=== PATIENT | male | born 1975 | race Caucasian/White ===

== ENCOUNTER 2016-06-21 22:57 | Emergency (ER) | payer MEDICAID, SELFPAY ==
[2016-06-21] MEDS ORDERED: CLINDAMYCIN 150 MG CAP As Ordered ONE (23:29)
[2016-06-21] MEDS ORDERED: IBUPROFEN 800 MG TAB As Ordered ONE (23:29)
[2016-06-21] MEDS ORDERED: traMADol 50 MG TAB As Ordered ONE (23:29)
--- NOTE | 2016-06-21 23:38 | EDDOCDS ---
Physician Documentation [facility] Name: Yfn Huntley Age: 41 yrs Sex: Male : 1975 Arrival Date: 06/21/2016 Time: 22:57 Bed 12 Private MD: No Pcp Disposition: 06/21/16 23:26 Discharged to Home/Self Care. Impression: Dental caries. - Condition is Stable. - Discharge Instructions: Dental Pain. - Prescriptions for Clindamycin HCl 300 mg Oral Capsule - take 1 capsule by ORAL route every 6 hours; 40 capsule. etodolac 200 mg Oral Capsule - take 1 capsule by ORAL route 3 times per day; 30 capsule. - Medication Reconciliation, Local Pharmacy Hours form. - Follow up: Your, Dentist; When: Call to arrange an appointment; Reason: Further diagnostic work-up, Recheck today's complaints, Continuance of care. - Problem is an acute exacerbation. - Symptoms are unchanged. Historical: - Allergies: No known drug Allergies; - Home Meds: 1. none - PMHx: none; - PSHx: none; - Social history: Smoking status: Patient uses tobacco products, heavy tobacco smoker. No barriers to communication noted, The patient speaks fluent [place] Citizen, Speaks appropriately for age. - Family history: Not pertinent. - : The pt / caregiver states he / she is not on anticoagulants. Home medication list is obtained from the patient. - Exposure Risk Screening:: None identified. Vital Signs: 06/21 22:58 BP 128 / 89; Pulse 77; Resp 18 S; Temp 97.9(O); Pulse Ox 99% on R/A; Weight 68.04 kg / gr2 150 lbs (R); Height 5 ft. 9 in. (175.26 cm) (R); Pain 7/10; 22:58 Body Mass Index 22.15 (68.04 kg, 175.26 cm) gr2 MDM: 23:25 Clindamycin 300 mg PO once ordered. btw 23:25 traMADol 50mg- 4 pack 1 packets PO Per package directions; Dispense with patient. Take btw per package instructions. ordered. 23:25 Ibuprofen 800 mg PO once ordered. btw Administered Medications: 23:35 Drug: Clindamycin 300 mg [clindamycin 150 mg capsule (2 caps)] Route: PO; tm5 23:36 Follow up: Response: Pt left department before re-evaluation is appropriate tm5 23:35 Drug: traMADol 50mg- 4 pack 1 packets [tramadol 50 mg tablet (1 tabs)] {Co-Signature: tm5 sls1 (Aparna Raza RN).} Route: PO; 23:35 Follow up: Response: Med's dispensed home tm5 23:35 Drug: Ibuprofen 800 mg [ibuprofen 800 mg tablet (1 tabs)] Route: PO; tm5 23:35 Follow up: Response: Pt left department before re-evaluation is appropriate tm5 Signatures: Fran Kramer PA PA btw Becker, Joshua, RN RN jmEstelle Denise RN RN tm5 Aparna Raza RN sls1 MTDD
--- NOTE | 2016-06-21 23:38 | EDDOCDS ---
Nurse's Notes [facility] Name: Yfn Huntley Age: 41 yrs Sex: Male : 1975 Arrival Date: 06/21/2016 Time: 22:57 Bed 12 Private MD: No Pcp Diagnosis: Dental caries Presentation: 06/21 23:13 Presenting complaint: Patient states: Patient reports that he has an abscessed tooth jmb that came to a head yesterday. Patient reports that his filling fell out 6 months ago. Patient denies calling dentist and reports getting his Medicaid reinstated today. Adult Sepsis Screening: The patient does not have new or worsening altered mentation. Patient's respiratory rate is less than 22. Systolic blood pressure is greater than 100. Patient has a qSOFA score of 0- Negative Sepsis Screen. Suicide/Homicide risk assessment- the patient denies having any suicidal and/or homicidal ideations and does not present with any other emotional, behavioral or mental health complaints. Status: Patient is not a director volunteer services or dependent. Transition of care: patient was not received from another setting of care. 23:13 Acuity: AMALIA Level 4 b 23:13 Method Of Arrival: Walkin/Carried/Asstd jmb Triage Assessment: 23:14 General: Appears in no apparent distress, Behavior is appropriate for age, cooperative. jmb Pain: Location: mouth Pain currently is 8 out of 10 on a pain scale. HIV screening NA for this visit Offered previously. Neurological: Level of Consciousness is awake, alert, obeys commands, Oriented to person, place, time, Speech is normal, Facial symmetry appears normal, Facial symmetry: tongue is midline. EENT: Reports pain in mouth Pain is 8 out of 10 on a pain scale. Respiratory: Airway is patent Respiratory effort is even, unlabored, Respiratory pattern is regular, symmetrical. GI: Abdomen is non- distended. Derm: Skin is pink, warm & dry. Musculoskeletal: Range of motion intact in all extremities. Historical: - Allergies: No known drug Allergies; - Home Meds: 1. none - PMHx: none; - PSHx: none; - Social history: Smoking status: Patient uses tobacco products, heavy tobacco smoker. No barriers to communication noted, The patient speaks fluent [place] Sor[place], Speaks appropriately for age. - Family history: Not pertinent. - : The pt / caregiver states he / she is not on anticoagulants. Home medication list is obtained from the patient. - Exposure Risk Screening:: None identified. Screenin:22 Screening information is obtained from the patient. Fall risk: No risks identified. tm5 Assistance ADL's: requires no assistance with activities of daily living. Abuse/DV Screen: The patient / caregiver reports he/she is: not in a situation that causes fear, pain or injury. Nutritional screening: No deficits noted. Advance Directives: There is no active DNR order. home support is adequate. Assessment: 23:22 General: Appears in no apparent distress, Behavior is appropriate for age, cooperative. tm5 Pain: Location: mouth Pain currently is 8 out of 10 on a pain scale. Quality of pain is described as sharp. Neurological: Level of Consciousness is awake, alert, Oriented to person, place, time. Respiratory: Airway is patent Respiratory effort is even, unlabored, Respiratory pattern is regular, symmetrical, Breath sounds are clear bilaterally. Derm: Skin is pink, warm & dry. Vital Signs: 22:58 BP 128 / 89; Pulse 77; Resp 18 S; Temp 97.9(O); Pulse Ox 99% on R/A; Weight 68.04 kg gr2 (R); Height 5 ft. 9 in. (175.26 cm) (R); Pain 7/10; 22:58 Body Mass Index 22.15 (68.04 kg, 175.26 cm) gr2 Vitals: 22:58 Log In Time: June 21, 2016 at 22:58. gr2 ED Course: 22:58 Patient visited by Janis Taylor. gr2 22:58 No Pcp is Private Physician. gr2 22:58 Patient moved to Waiting gr2 22:59 Patient visited by Janis Taylor. gr2 22:59 Patient moved to Pre RCE gr2 23:14 Triage Initiated jmb 23:15 Patient moved to 13 jmb 23:16 Patient moved to 12 jmb 23:20 Fran Kramer PA is PHCP. btw 23:20 Constantine Nolan DO is Attending Physician. btw 23:20 Patient visited by Fran Kramer PA. btw 23:22 Patient visited by Estelle Owens RN. tm5 23:22 Physician Asssistant in to see patient. tm5 23:22 The patient / caregiver is instructed regarding the plan of care and ED course. tm5 23:26 Your, Dentist is Referral Physician. btw 23:36 No IV's were initiated during this patient's visit. No procedures done that require tm5 assistance. Administered Medications: 23:35 Drug: Clindamycin 300 mg [clindamycin 150 mg capsule (2 caps)] Route: PO; tm5 23:36 Follow up: Response: Pt left department before re-evaluation is appropriate tm5 23:35 Drug: traMADol 50mg- 4 pack 1 packets [tramadol 50 mg tablet (1 tabs)] {Co-Signature: tm5 sls1 (Aparna Raza RN).} Route: PO; 23:35 Follow up: Response: Med's dispensed home tm5 23:35 Drug: Ibuprofen 800 mg [ibuprofen 800 mg tablet (1 tabs)] Route: PO; tm5 23:35 Follow up: Response: Pt left department before re-evaluation is appropriate tm5 Order Results: There are currently no results for this order. Outcome: 23:22 No special radiology studies were completed. tm5 23:26 Discharge ordered by Provider. btw 23:36 Discharge Assessment: Patient awake, alert and oriented x 3. No cognitive and/or tm5 functional deficits noted. Patient verbalized understanding of disposition instructions. patient administered narcotics - no. The following High Risk Discharge criteria are identified: None. Discharged to home ambulatory. Condition: good Condition: stable. Discharge instructions given to patient, Instructed on discharge instructions, follow up and referral plans. medication usage, no driving heavy equipment, Demonstrated understanding of instructions, medications, Pt was receptive of discharge instructions/ teaching. Prescriptions given X 2. Property :Personal belongings accompany Pt. 23:37 Patient left the ED. tm5 Signatures: Fran Kramer PA PA btw Janis Taylor gr2 Roscoe DowdRN RN Estelle YanRN RN tm5 Aparna Raza RN sls1 MTDD
--- NOTE | 2016-06-24 00:38 | EDDOCDS ---
Physician Documentation [facility] Name: Yfn Huntley Age: 41 yrs Sex: Male : 1975 Arrival Date: 06/21/2016 Time: 22:57 Bed 12 Private MD: No Pcp Disposition: 06/21/16 23:26 Discharged to Home/Self Care. Impression: Dental caries. - Condition is Stable. - Discharge Instructions: Dental Pain. - Prescriptions for Clindamycin HCl 300 mg Oral Capsule - take 1 capsule by ORAL route every 6 hours; 40 capsule. etodolac 200 mg Oral Capsule - take 1 capsule by ORAL route 3 times per day; 30 capsule. - Medication Reconciliation, Local Pharmacy Hours form. - Follow up: Your, Dentist; When: Call to arrange an appointment; Reason: Further diagnostic work-up, Recheck today's complaints, Continuance of care. - Problem is an acute exacerbation. - Symptoms are unchanged. Historical: - Allergies: No known drug Allergies; - Home Meds: 1. none - PMHx: none; - PSHx: none; - Social history: Smoking status: Patient uses tobacco products, heavy tobacco smoker. No barriers to communication noted, The patient speaks fluent [place], Speaks appropriately for age. - Family history: Not pertinent. - : The pt / caregiver states he / she is not on anticoagulants. Home medication list is obtained from the patient. - Exposure Risk Screening:: None identified. Vital Signs: 06/21 22:58 BP 128 / 89; Pulse 77; Resp 18 S; Temp 97.9(O); Pulse Ox 99% on R/A; Weight 68.04 kg / gr2 150 lbs (R); Height 5 ft. 9 in. (175.26 cm) (R); Pain 7/10; 22:58 Body Mass Index 22.15 (68.04 kg, 175.26 cm) gr2 MDM: 23:25 Clindamycin 300 mg PO once ordered. btw 23:25 traMADol 50mg- 4 pack 1 packets PO Per package directions; Dispense with patient. Take btw per package instructions. ordered. 23:25 Ibuprofen 800 mg PO once ordered. btw 06/22 13:45 T-Sheet-- Draft Copy was scanned into [employer] and attached to record. gb Administered Medications: 06/21 23:35 Drug: Clindamycin 300 mg [clindamycin 150 mg capsule (2 caps)] Route: PO; tm5 23:36 Follow up: Response: Pt left department before re-evaluation is appropriate tm5 23:35 Drug: traMADol 50mg- 4 pack 1 packets [tramadol 50 mg tablet (1 tabs)] {Co-Signature: tm5 sls1 (Aparna Raza RN).} Route: PO; 23:35 Follow up: Response: Med's dispensed home tm5 23:35 Drug: Ibuprofen 800 mg [ibuprofen 800 mg tablet (1 tabs)] Route: PO; tm5 23:35 Follow up: Response: Pt left department before re-evaluation is appropriate tm5 Signatures: Catherine Sullivan, Rickie Reg gb Fran Kramer PA PA btw Becker, Joshua,RN RN Estelle Yan RN RN tm5 Aparna Raza RN sls1 The chart was reviewed and I authenticate all verbal orders and agree with the evaluation and treatment provided.Attachments: 06/22 13:45 T-Sheet-- Draft Copy Chart Complete MTDD
--- NOTE | 2016-06-24 00:38 | EDDOCDS ---
Physician Documentation [facility] Name: Yfn Huntley Age: 41 yrs Sex: Male : 1975 Arrival Date: 06/21/2016 Time: 22:57 Bed 12 Private MD: No Pcp Disposition: 06/21/16 23:26 Discharged to Home/Self Care. Impression: Dental caries. - Condition is Stable. - Discharge Instructions: Dental Pain. - Prescriptions for Clindamycin HCl 300 mg Oral Capsule - take 1 capsule by ORAL route every 6 hours; 40 capsule. etodolac 200 mg Oral Capsule - take 1 capsule by ORAL route 3 times per day; 30 capsule. - Medication Reconciliation, Local Pharmacy Hours form. - Follow up: Your, Dentist; When: Call to arrange an appointment; Reason: Further diagnostic work-up, Recheck today's complaints, Continuance of care. - Problem is an acute exacerbation. - Symptoms are unchanged. Historical: - Allergies: No known drug Allergies; - Home Meds: 1. none - PMHx: none; - PSHx: none; - Social history: Smoking status: Patient uses tobacco products, heavy tobacco smoker. No barriers to communication noted, The patient speaks fluent [place], Speaks appropriately for age. - Family history: Not pertinent. - : The pt / caregiver states he / she is not on anticoagulants. Home medication list is obtained from the patient. - Exposure Risk Screening:: None identified. Vital Signs: 06/21 22:58 BP 128 / 89; Pulse 77; Resp 18 S; Temp 97.9(O); Pulse Ox 99% on R/A; Weight 68.04 kg / gr2 150 lbs (R); Height 5 ft. 9 in. (175.26 cm) (R); Pain 7/10; 22:58 Body Mass Index 22.15 (68.04 kg, 175.26 cm) gr2 MDM: 23:25 Clindamycin 300 mg PO once ordered. btw 23:25 traMADol 50mg- 4 pack 1 packets PO Per package directions; Dispense with patient. Take btw per package instructions. ordered. 23:25 Ibuprofen 800 mg PO once ordered. btw 06/22 13:45 T-Sheet-- Draft Copy was scanned into [employer] and attached to record. gb Administered Medications: 06/21 23:35 Drug: Clindamycin 300 mg [clindamycin 150 mg capsule (2 caps)] Route: PO; tm5 23:36 Follow up: Response: Pt left department before re-evaluation is appropriate tm5 23:35 Drug: traMADol 50mg- 4 pack 1 packets [tramadol 50 mg tablet (1 tabs)] {Co-Signature: tm5 sls1 (Aparna Raza RN).} Route: PO; 23:35 Follow up: Response: Med's dispensed home tm5 23:35 Drug: Ibuprofen 800 mg [ibuprofen 800 mg tablet (1 tabs)] Route: PO; tm5 23:35 Follow up: Response: Pt left department before re-evaluation is appropriate tm5 Signatures: Catherine Sullivan, Rickie Reg gb Fran Kramer PA PA btw Becker, Joshua,RN RN Estelle Yan RN RN tm5 Aparna Raza RN sls1 The chart was reviewed and I authenticate all verbal orders and agree with the evaluation and treatment provided.Attachments: 06/22 13:45 T-Sheet-- Draft Copy Chart Complete MTDD
--- NOTE | 2016-06-24 00:38 | EDDOCDS ---
Nurse's Notes [facility] Name: Yfn Huntley Age: 41 yrs Sex: Male : 1975 Arrival Date: 06/21/2016 Time: 22:57 Bed 12 Private MD: No Pcp Diagnosis: Dental caries Presentation: 06/21 23:13 Presenting complaint: Patient states: Patient reports that he has an abscessed tooth jmb that came to a head yesterday. Patient reports that his filling fell out 6 months ago. Patient denies calling dentist and reports getting his Medicaid reinstated today. Adult Sepsis Screening: The patient does not have new or worsening altered mentation. Patient's respiratory rate is less than 22. Systolic blood pressure is greater than 100. Patient has a qSOFA score of 0- Negative Sepsis Screen. Suicide/Homicide risk assessment- the patient denies having any suicidal and/or homicidal ideations and does not present with any other emotional, behavioral or mental health complaints. Status: Patient is not a electrical service technician or dependent. Transition of care: patient was not received from another setting of care. 23:13 Acuity: AMALIA Level 4 b 23:13 Method Of Arrival: Walkin/Carried/Asstd jmb Triage Assessment: 23:14 General: Appears in no apparent distress, Behavior is appropriate for age, cooperative. jmb Pain: Location: mouth Pain currently is 8 out of 10 on a pain scale. HIV screening NA for this visit Offered previously. Neurological: Level of Consciousness is awake, alert, obeys commands, Oriented to person, place, time, Speech is normal, Facial symmetry appears normal, Facial symmetry: tongue is midline. EENT: Reports pain in mouth Pain is 8 out of 10 on a pain scale. Respiratory: Airway is patent Respiratory effort is even, unlabored, Respiratory pattern is regular, symmetrical. GI: Abdomen is non- distended. Derm: Skin is pink, warm & dry. Musculoskeletal: Range of motion intact in all extremities. Historical: - Allergies: No known drug Allergies; - Home Meds: 1. none - PMHx: none; - PSHx: none; - Social history: Smoking status: Patient uses tobacco products, heavy tobacco smoker. No barriers to communication noted, The patient speaks fluent [place], Speaks appropriately for age. - Family history: Not pertinent. - : The pt / caregiver states he / she is not on anticoagulants. Home medication list is obtained from the patient. - Exposure Risk Screening:: None identified. Screenin:22 Screening information is obtained from the patient. Fall risk: No risks identified. tm5 Assistance ADL's: requires no assistance with activities of daily living. Abuse/DV Screen: The patient / caregiver reports he/she is: not in a situation that causes fear, pain or injury. Nutritional screening: No deficits noted. Advance Directives: There is no active DNR order. home support is adequate. Assessment: 23:22 General: Appears in no apparent distress, Behavior is appropriate for age, cooperative. tm5 Pain: Location: mouth Pain currently is 8 out of 10 on a pain scale. Quality of pain is described as sharp. Neurological: Level of Consciousness is awake, alert, Oriented to person, place, time. Respiratory: Airway is patent Respiratory effort is even, unlabored, Respiratory pattern is regular, symmetrical, Breath sounds are clear bilaterally. Derm: Skin is pink, warm & dry. Vital Signs: 22:58 BP 128 / 89; Pulse 77; Resp 18 S; Temp 97.9(O); Pulse Ox 99% on R/A; Weight 68.04 kg gr2 (R); Height 5 ft. 9 in. (175.26 cm) (R); Pain 7/10; 22:58 Body Mass Index 22.15 (68.04 kg, 175.26 cm) gr2 Vitals: 22:58 Log In Time: June 21, 2016 at 22:58. gr2 ED Course: 22:58 Patient visited by Janis Taylor. gr2 22:58 No Pcp is Private Physician. gr2 22:58 Patient moved to Waiting gr2 22:59 Patient visited by Janis Taylor. gr2 22:59 Patient moved to Pre RCE gr2 23:14 Triage Initiated jmb 23:15 Patient moved to 13 jmb 23:16 Patient moved to 12 jmb 23:20 Fran Kramer PA is PHCP. btw 23:20 Constantine Nolan DO is Attending Physician. btw 23:20 Patient visited by Fran Kramer PA. btw 23:22 Patient visited by Estelle Owens RN. tm5 23:22 Physician Asssistant in to see patient. tm5 23:22 The patient / caregiver is instructed regarding the plan of care and ED course. tm5 23:26 Your, Dentist is Referral Physician. btw 23:36 No IV's were initiated during this patient's visit. No procedures done that require tm5 assistance. 06/22 13:45 T-Sheet-- Draft Copy was scanned into [employer] and attached to record. gb Administered Medications: 06/21 23:35 Drug: Clindamycin 300 mg [clindamycin 150 mg capsule (2 caps)] Route: PO; tm5 23:36 Follow up: Response: Pt left department before re-evaluation is appropriate tm5 23:35 Drug: traMADol 50mg- 4 pack 1 packets [tramadol 50 mg tablet (1 tabs)] {Co-Signature: tm5 sls1 (Aparna Raza RN).} Route: PO; 23:35 Follow up: Response: Med's dispensed home tm5 23:35 Drug: Ibuprofen 800 mg [ibuprofen 800 mg tablet (1 tabs)] Route: PO; tm5 23:35 Follow up: Response: Pt left department before re-evaluation is appropriate tm5 Order Results: There are currently no results for this order. Outcome: 23:22 No special radiology studies were completed. tm5 23:26 Discharge ordered by Provider. btw 23:36 Discharge Assessment: Patient awake, alert and oriented x 3. No cognitive and/or tm5 functional deficits noted. Patient verbalized understanding of disposition instructions. patient administered narcotics - no. The following High Risk Discharge criteria are identified: None. Discharged to home ambulatory. Condition: good Condition: stable. Discharge instructions given to patient, Instructed on discharge instructions, follow up and referral plans. medication usage, no driving heavy equipment, Demonstrated understanding of instructions, medications, Pt was receptive of discharge instructions/ teaching. Prescriptions given X 2. Property :Personal belongings accompany Pt. 23:37 Patient left the ED. tm5 Signatures: Catherine Sullivan, Reg Reg Fran Hardy PA PA btw Janis Taylor gr2 Roscoe Dowd,RN RN Estelle Yan RN RN tm5 Aparna Raza RN sls1 Chart Complete MTDD
== END 2016-06-21 23:37 | disposition home or self-care (01) ==
LOC: M ED 22:57
DX: K02.9 Dental caries, unspecified (principal); Z72.0 Tobacco use

== ENCOUNTER 2016-06-24 16:57 | Emergency (ER) | payer SELFPAY | END 2016-06-24 18:05 | disposition left against medical advice (07) | LOC: M ED 16:57 | DX: K08.89 Other specified disorders of teeth and supporting structures (principal); Z53.29 Procedure and treatment not carried out because of patient's decision for other reasons ==

== ENCOUNTER 2017-10-04 01:22 | Emergency (ER) | payer OTHER, SELFPAY ==
[2017-10-04 02:40] LABS: BASO # 0.1 10^3/uL (0.0-0.2); BASO % 0.5 % (0.0-1.0); EOS % 0.4 % (0.0-3.0); HEMOGLOBIN 14.3 g/dl (13.5-17.5); IMMATURE GRANULOCYTE % 0.4 % (0-3.0); LYMPH # 1.8 10^3/uL (1.5-4.5); LYMPH % 16.7 % (24.0-44.0); MEAN CORPUSCULAR HEMOGLOBIN 33.1 pg (27.0-33.0); MEAN CORPUSCULAR HGB CONC 34.9 g/dl (32.0-36.5); MEAN CORPUSCULAR VOLUME 94.9 fl (80.0-96.0); MONO % 9.1 % (0.0-5.0); NEUTROPHILS % 72.9 % (36.0-66.0); PLATELET COUNT, AUTOMATED 349 10^3/uL (150-450); RED BLOOD COUNT 4.32 10^6/uL (4.30-6.10)
[2017-10-04 02:48] LABS: ANION GAP 5 MEQ/L (8-16); BLOOD UREA NITROGEN 8 MG/DL (7-18); CALCIUM LEVEL 8.3 MG/DL (8.5-10.1); CARBON DIOXIDE LEVEL 28 MEQ/L (21-32); CHLORIDE LEVEL 111 MEQ/L (98-107); CK-MB VALUE MASS 2.1 NG/ML (<3.6); CPK CREATINE PHOSPHOKINASE 239 U/L (39-308); CREATININE FOR GFR 0.94 MG/DL (0.70-1.30); GLOMERULAR FILTRATION RATE > 60.0 (>60); GLUCOSE, FASTING 93 MG/DL (70-100); MB/CK RELATIVE INDEX 0.87 (< OR =4); POTASSIUM SERUM 3.9 MEQ/L (3.5-5.1); SODIUM LEVEL 144 MEQ/L (136-145); TROPONIN I < 0.02 NG/ML (< 0.10)
[2017-10-04 02:54] LABS: PARTIAL THROMBOPLASTIN TIME 26.2 SECONDS (26.8-37.9); PROTHROMBIN TIME 13.3 SECONDS (12.4-14.5)
== END 2017-10-04 04:17 | disposition home or self-care (01) ==
LOC: M ED 04:17
DX: R07.89 Other chest pain (principal); F17.200 Nicotine dependence, unspecified, uncomplicated
CPT/HCPCS: 71045

== ENCOUNTER 2018-04-13 08:25 | Emergency (ER) | payer MEDICAID, OTHER ==
[2018-04-13] MEDS: ONDANSETRON 4MG/2ML VIAL (J2405) IV (08:53)
[2018-04-13] MEDS: MORPHINE 4 MG/ML 1ML VIAL/SYRINGE (J2270) IV (08:53)
[2018-04-13] MEDS: NS 1,000 ML IV (08:54)
[2018-04-13 08:56] LABS: BASO # 0.1 10^3/uL (0.0-0.2); BASO % 0.8 % (0.0-1.0); EOS # 0.3 10^3/uL (0.0-0.50); EOS % 3.5 % (0.0-3.0); HEMATOCRIT 44.1 % (42.0-52.0); HEMOGLOBIN 14.6 g/dl (13.5-17.5); IMMATURE GRANULOCYTE % 0.3 % (0-3.0); MEAN CORPUSCULAR HEMOGLOBIN 31.9 pg (27.0-33.0); MEAN CORPUSCULAR HGB CONC 33.1 g/dl (32.0-36.5); MEAN CORPUSCULAR VOLUME 96.5 fl (80.0-96.0); MONO # 0.8 10^3/uL (0.0-0.8); MONO % 10.4 % (0.0-5.0); NEUTROPHILS # 4.3 10^3/uL (1.8-7.7); PLATELET COUNT, AUTOMATED 370 10^3/uL (150-450); RED BLOOD COUNT 4.57 10^6/uL (4.30-6.10); RED CELL DISTRIBUTION WIDTH 13.3 % (11.5-14.5); WHITE BLOOD COUNT 7.4 10^3/uL (4.0-10.0)
[2018-04-13 09:12] LABS: INR 0.87; PROTHROMBIN TIME 11.9 SECONDS (12.1-14.4)
[2018-04-13 09:13] LABS: PARTIAL THROMBOPLASTIN TIME 27.4 SECONDS (25.4-37.6)
[2018-04-13 09:20] LABS: ALBUMIN 3.7 GM/DL (3.2-5.2); ALBUMIN/GLOBULIN RATIO 1.37 (1.00-1.93); ALKALINE PHOSPHATASE 86 U/L (45-117); ALT/SGPT 17 U/L (12-78); AMYLASE 194 U/L (25-115); ANION GAP 6 MEQ/L (8-16); AST/SGOT 10 U/L (7-37); BILIRUBIN,DIRECT < 0.1 MG/DL (0.0-0.2); BILIRUBIN,TOTAL 0.3 MG/DL (0.2-1.0); BLOOD UREA NITROGEN 15 MG/DL (7-18); CALCIUM LEVEL 8.6 MG/DL (8.5-10.1); CARBON DIOXIDE LEVEL 30 MEQ/L (21-32); CHLORIDE LEVEL 106 MEQ/L (98-107); CREATININE FOR GFR 0.93 MG/DL (0.70-1.30); GLOMERULAR FILTRATION RATE > 60.0 (>60); GLUCOSE, FASTING 99 MG/DL (70-100); LIPASE 502 U/L (73-393); POTASSIUM SERUM 4.6 MEQ/L (3.5-5.1); SODIUM LEVEL 142 MEQ/L (136-145); TOTAL PROTEIN 6.4 GM/DL (6.4-8.2)
[2018-04-13 09:20] LABS: LACTIC ACID SEPSIS PROTOCOL 1.3 MMOL/L (0.4-2.0)
[2018-04-13] MEDS ORDERED: ISOVUE-370 76% 100ML VIAL (Q9967) As Ordered (09:33)
== END 2018-04-13 11:16 | disposition home or self-care (01) ==
LOC: M ED 08:25
DX: K56.7 Ileus, unspecified (principal)
CPT/HCPCS: J2270

== ENCOUNTER 2019-05-29 08:34 | Emergency (ER) | payer MEDICAID, OTHER ==
[~2019-05-29] VITALS: Ht 175.3 cm; Wt 59.6 kg
[~2019-05-29 08:34] MED LIST: ACET-716 PO
[2019-05-29] MEDS ORDERED: IBUP80TA (08:42)
[2019-05-29] MEDS ORDERED: BUPREN-NALOX (08:42)
[2019-05-29 09:11] LABS: BASO # 0.1 10^3/uL (0.0-0.2); BASO % 0.3 % (0.0-1.0); EOS # 0.1 10^3/uL (0.0-0.5); EOS % 0.4 % (0.0-3.0); HEMATOCRIT 32.2 % (42.0-52.0); HEMOGLOBIN 10.4 g/dl (13.5-17.5); LYMPH # 2.2 10^3/uL (1.5-5.0); LYMPH % 14.1 % (24.0-44.0); MEAN CORPUSCULAR HEMOGLOBIN 29.3 pg (27.0-33.0); MEAN CORPUSCULAR HGB CONC 32.3 g/dl (32.0-36.5); MEAN CORPUSCULAR VOLUME 90.7 fl (80.0-96.0); MONO % 14.8 % (0.0-5.0); NEUTROPHILS # 10.8 10^3/uL (1.5-8.5); NEUTROPHILS % 69.9 % (36.0-66.0); PLATELET COUNT, AUTOMATED 838 10^3/uL (150-450); RED BLOOD COUNT 3.55 10^6/uL (4.30-6.10); WHITE BLOOD COUNT 15.5 10^3/uL (4.0-10.0)
[2019-05-29 09:36] LABS: MONO # 2.3 10^3/uL (0.0-0.8)
[2019-05-29 09:41] LABS: ALBUMIN 2.5 GM/DL (3.2-5.2); ALT/SGPT 17 U/L (12-78); BILIRUBIN,DIRECT 0.1 MG/DL (0.0-0.2); BILIRUBIN,TOTAL 0.4 MG/DL (0.2-1.0); BLOOD UREA NITROGEN 10 MG/DL (7-18); CALCIUM LEVEL 8.3 MG/DL (8.5-10.1); CARBON DIOXIDE LEVEL 26 MEQ/L (21-32); CHLORIDE LEVEL 103 MEQ/L (98-107); CREATININE FOR GFR 0.66 MG/DL (0.70-1.30); GLOMERULAR FILTRATION RATE > 60.0 (>60); GLUCOSE, FASTING 103 MG/DL (70-100); LIPASE 35 U/L (73-393); POTASSIUM SERUM 3.9 MEQ/L (3.5-5.1); SODIUM LEVEL 138 MEQ/L (136-145); TOTAL PROTEIN 6.7 GM/DL (6.4-8.2)
--- NOTE | 2019-05-29 10:04 | REP ---
Acute abdominal series three views including PA chest and supine upright abdomen: PA chest: Comparison is 10/04/2017. The lung castaneda are clear. The cardiac size is normal. The steve, mediastinum, skeletal structures are unremarkable. There is no free subdiaphragmatic air. There is no interval change. Abdomen, supine upright views: Comparison is the abdomen/pelvis CT dated 04/13/2018. The bowel gas pattern is normal. There are no calcifications. The skeletal soft tissue structures otherwise are unremarkable. Impression: Normal bowel gas pattern. Electronically Signed by Dayton Alvarenga MD 05/29/2019 09:55 A
[2019-05-29 11:06] VITALS: BP 116/66
[2019-05-29] MEDS: GASTROGRAFIN SOLUTION 30ML PO SCH ×2 (11:22→11:23)
[2019-05-29] MEDS ORDERED: ISOVUE-370 76% 100ML VIAL (Q9967) As Ordered ONE (11:42)
== END 2019-05-29 11:55 | disposition left against medical advice (07) ==
LOC: M ED 08:34
DX: R10.9 Unspecified abdominal pain (principal); Z53.20 Procedure and treatment not carried out because of patient's decision for unspecified reasons; G89.29 Other chronic pain; M54.5 Low back pain; F17.210 Nicotine dependence, cigarettes, uncomplicated
CPT/HCPCS: 36415; 74021; 80048; 80076; 81001; 83690; 85025; 99284; Q9963

== ENCOUNTER 2019-05-31 06:42 | Emergency (ER) | payer OTHER ==
[~2019-05-31] VITALS: Ht 175.3 cm; Wt 59.6 kg
[~2019-05-31 06:42] MED LIST changes: +BUPREN-NALOX; +IBUP80TA
[2019-05-31] MEDS ORDERED: GASTROGRAFIN SOLUTION 30ML (Q9963) As Ordered ONE (07:13)
[2019-05-31] MEDS ORDERED: NS 1,000 ML IV ONE (07:15)
[2019-05-31] MEDS: GASTROGRAFIN SOLUTION 30ML PO SCH ×2 (07:22→07:57)
[2019-05-31 07:26] LABS: BASO % 0.1 % (0.0-1.0); EOS # 0.1 10^3/uL (0.0-0.5); EOS % 0.5 % (0.0-3.0); HEMATOCRIT 31.1 % (42.0-52.0); HEMOGLOBIN 9.8 g/dl (13.5-17.5); LYMPH # 1.6 10^3/uL (1.5-5.0); LYMPH % 11.3 % (24.0-44.0); MEAN CORPUSCULAR HGB CONC 31.5 g/dl (32.0-36.5); MONO % 14.9 % (0.0-5.0); NEUTROPHILS # 10.1 10^3/uL (1.5-8.5); NEUTROPHILS % 72.8 % (36.0-66.0); PLATELET COUNT, AUTOMATED 839 10^3/uL (150-450); RED BLOOD COUNT 3.38 10^6/uL (4.30-6.10); WHITE BLOOD COUNT 13.8 10^3/uL (4.0-10.0)
[2019-05-31 07:51] LABS: ALBUMIN 2.3 GM/DL (3.2-5.2); ALT/SGPT 14 U/L (12-78); BILIRUBIN,DIRECT 0.1 MG/DL (0.0-0.2); BILIRUBIN,TOTAL 0.3 MG/DL (0.2-1.0); BLOOD UREA NITROGEN 10 MG/DL (7-18); CALCIUM LEVEL 8.2 MG/DL (8.5-10.1); CARBON DIOXIDE LEVEL 28 MEQ/L (21-32); CHLORIDE LEVEL 105 MEQ/L (98-107); CREATININE FOR GFR 0.64 MG/DL (0.70-1.30); GLOMERULAR FILTRATION RATE > 60.0 (>60); GLUCOSE, FASTING 103 MG/DL (70-100); LIPASE 27 U/L (73-393); POTASSIUM SERUM 4.6 MEQ/L (3.5-5.1); SODIUM LEVEL 139 MEQ/L (136-145); TOTAL PROTEIN 5.5 GM/DL (6.4-8.2)
[2019-05-31 07:55] LABS: MONO # 2.1 10^3/uL (0.0-0.8)
[2019-05-31] MEDS ORDERED: ISOVUE-370 76% 100ML VIAL (Q9967) As Ordered ONE (09:25)
[2019-05-31] MEDS ORDERED: PIPERACILLIN/TAZOBACTAM SOD 3.375 GM in D5W MINI-BAG PLUS 50 ML IV ONE (10:30)
--- NOTE | 2019-05-31 10:35 | REP ---
CT ABDOMEN PELVIS WITH IV AND ORAL CONTRAST: 05/31/2019. CLINICAL HISTORY: Left abdominal pain, smoker, concern for malignancy. COMPARISON: Abdominal series 05/29/2019, CT 04/13/2018. TECHNIQUE: Oral Gastrografin 10 mL in 290 mL flavored water for two doses per our bowel contrast protocol. Bolus of 100 mL Isovue 370 and scanning through the abdomen pelvis with coronal and sagittal reconstructions. FINDINGS: CT ABDOMEN: Lung bases are clear. Heart is not enlarged. There is no pericardial thickening or effusion. No hiatal hernia. Liver not enlarged but the left hepatic lobe is mildly prominent. No splenomegaly, hepatic or splenic focal lesion, biliary dilatation or upper abdominal ascites. Gallbladder without calcified stone or mass. Pancreas without mass, ductal dilatation, inflammatory change or adjacent adenopathy/fluid. Stomach collapsed. Small bowel loops are not dilated and I do not see air fluid levels. The oral contrast is seen in the distal small bowel loops and colon to the level of the mid left colon at the iliac crest. There is moderate constipation with abundant stool in the right and transverse colon up to the mid left colon. There is an air-fluid level along the iliacus muscle adjacent to abutting and likely arising from the left colon also abuts the psoas muscle. It extends to the superior margin of the left iliac wing. It is of least 8.5 x 6.6 x 4.1 cm. There is some free air adjacent to this and further up in the left upper quadrant adjacent to the splenic flexure. Adrenal glands are normal. Kidneys show no stone, hydronephrosis, mass or cyst. No perinephric fluid. I see no ureteral dilatation or ureteral stone. The aorta has calcifications but no aneurysm. CT PELVIS: Some pelvic free fluid is noted. This is seen along the left peroneal gutter into the left deep pelvis. Bladder is only minimally filled. Small bowel loops contrast filled and unremarkable. Distal left colon and sigmoid collapsed and difficult to evaluate. No ventral or inguinal hernia nor inguinal adenopathy. Bone windows show degenerative disc changes at L5-S1 and L4-5 , with the other lumbar levels, visualized ribs and bony pelvis without acute finding. No gross inflammatory changes about the cecum. Appendix is seen and unremarkable, filled with some oral contrast. IMPRESSION: 1. There is evidence of iliopsoas abscess on the left with air fluid level and abutting the psoas and iliacus muscles. The abscess measures 8.5 x 6.6 x 4.1 cm with fluid tracking down the peroneal gutter into the left pelvis. Some free air along the left abdominal wall. I suspect origin from the left colon but evaluation of the left colon and sigmoid difficult due to the low body fat and absence of oral contrast beyond the mid left colon, which up to that point, was normal. 2. There is renal, ureteral or bladder stone. Bladder collapsed. 3. Solid organs in the upper abdomen grossly unremarkable. 4. I spoke to the requesting PA by phone at the conclusion of this dictation. Electronically Signed by Ranjit Deleon MD 05/31/2019 07:54 P
[2019-05-31 11:21] VITALS: BP 107/60
== END 2019-05-31 11:41 | disposition left against medical advice (07) ==
LOC: M ED 06:42
DX: K68.12 Psoas muscle abscess (principal); R19.09 Other intra-abdominal and pelvic swelling, mass and lump; Z53.20 Procedure and treatment not carried out because of patient's decision for unspecified reasons; F17.210 Nicotine dependence, cigarettes, uncomplicated
CPT/HCPCS: 74177; 80048; 80076; 83690; 85025; 87040; 96361; 96365; 99284; J2543; Q9967

== ENCOUNTER 2019-05-31 13:44 | Emergency (ER) | payer OTHER ==
[~2019-05-31] VITALS: Ht 175.3 cm; Wt 59.8 kg
[2019-05-31] MEDS ORDERED: NS 1,000 ML IV SCH (14:00)
[2019-05-31 14:27] LABS: INR 1.12; PROTHROMBIN TIME 14.1 SECONDS (11.8-14.0)
[2019-05-31 14:28] LABS: PARTIAL THROMBOPLASTIN TIME 31.6 SECONDS (25.0-38.4)
[2019-05-31] MEDS ORDERED: NICOTINE 14 MG/24 HR TRANSDERMAL TD ONE (15:45)
[2019-05-31 16:31] VITALS: BP 120/72
== END 2019-05-31 16:33 | disposition short-term general hospital (02) ==
LOC: M ED 13:44
DX: K68.12 Psoas muscle abscess (principal); R19.09 Other intra-abdominal and pelvic swelling, mass and lump; F17.210 Nicotine dependence, cigarettes, uncomplicated

== ENCOUNTER 2019-06-02 10:21 | Emergency (ER) | payer OTHER ==
[~2019-06-02] VITALS: Ht 175.3 cm; Wt 61.4 kg
[2019-06-02] MEDS ORDERED: BUPREN-NALOX (11:45)
[2019-06-02 13:39] LABS: BASO % 0.2 % (0.0-1.0); EOS % 0.4 % (0.0-3.0); HEMATOCRIT 33.6 % (42.0-52.0); HEMOGLOBIN 10.5 g/dl (13.5-17.5); LYMPH # 2.1 10^3/uL (1.5-5.0); LYMPH % 19.4 % (24.0-44.0); MEAN CORPUSCULAR HEMOGLOBIN 28.7 pg (27.0-33.0); MEAN CORPUSCULAR HGB CONC 31.3 g/dl (32.0-36.5); MEAN CORPUSCULAR VOLUME 91.8 fl (80.0-96.0); MONO % 9.6 % (0.0-5.0); NEUTROPHILS # 7.5 10^3/uL (1.5-8.5); NEUTROPHILS % 69.9 % (36.0-66.0); PLATELET COUNT, AUTOMATED 864 10^3/uL (150-450); RED BLOOD COUNT 3.66 10^6/uL (4.30-6.10); WHITE BLOOD COUNT 10.7 10^3/uL (4.0-10.0)
[2019-06-02 14:08] LABS: ALBUMIN 2.5 GM/DL (3.2-5.2); ALT/SGPT 9 U/L (12-78); BILIRUBIN,TOTAL 0.2 MG/DL (0.2-1.0); BLOOD UREA NITROGEN 11 MG/DL (7-18); CALCIUM LEVEL 8.8 MG/DL (8.5-10.1); CARBON DIOXIDE LEVEL 32 MEQ/L (21-32); CHLORIDE LEVEL 105 MEQ/L (98-107); CREATININE FOR GFR 0.75 MG/DL (0.70-1.30); GLOMERULAR FILTRATION RATE > 60.0 (>60); GLUCOSE, FASTING 88 MG/DL (70-100); SODIUM LEVEL 139 MEQ/L (136-145); TOTAL PROTEIN 5.9 GM/DL (6.4-8.2)
[2019-06-02 14:47] VITALS: BP 112/73
[2019-06-02] MEDS ORDERED: AUGM875T28 PO (14:55)
== END 2019-06-02 15:02 | disposition home or self-care (01) ==
LOC: M ED 10:21
DX: K68.12 Psoas muscle abscess (principal); F11.10 Opioid abuse, uncomplicated; F17.210 Nicotine dependence, cigarettes, uncomplicated

== ENCOUNTER 2019-06-06 16:18 | Emergency (ER) | payer OTHER ==
[~2019-06-06] VITALS: Ht 175.3 cm; Wt 59.5 kg
[2019-06-06 16:18] VITALS: BP 135/87
[~2019-06-06 16:18] MED LIST changes: +AUGM875T28 PO; -IBUP80TA; +IBUP80TA PO
[2019-06-07] MEDS ORDERED: AUGM875T28 PO (03:21)
[2019-06-07] MEDS ORDERED: SUBO8MIS SL (03:21)
== END 2019-06-06 17:05 | disposition left against medical advice (07) ==
LOC: M ED 16:18
DX: Z53.21 Procedure and treatment not carried out due to patient leaving prior to being seen by health care provider (principal)

== ENCOUNTER 2019-06-06 22:30 | Inpatient (IN) | payer OTHER ==
[~2019-06-06] VITALS: Ht 175.3 cm; Wt 53.9 kg
[2019-06-06] MEDS: NICOTINE 14 MG/24 HR TRANSDERMAL TD SCH (09:00)
[2019-06-07] VITALS (16 sets, daily range): BP systolic 110–136; BP diastolic 60–93; O2SAT 96–99
[2019-06-07] MEDS ORDERED: MORPHINE 4 MG/ML 1ML VIAL/SYRINGE (J2270) IV ONE (00:30)
[2019-06-07] MEDS ORDERED: ONDANSETRON 4MG/2ML VIAL (J2405) IV ONE (00:30)
[2019-06-07] MEDS ORDERED: NS 1,000 ML IV ONE (00:30)
[2019-06-07] MEDS ORDERED: ISOVUE-370 76% 100ML VIAL (Q9967) As Ordered ONE ×2 (00:36→01:44)
[2019-06-07 01:01] LABS: BASO % 0.2 % (0.0-1.0); EOS % 0.2 % (0.0-3.0); HEMATOCRIT 37.6 % (42.0-52.0); HEMOGLOBIN 12.1 g/dl (13.5-17.5); LYMPH # 2.3 10^3/uL (1.5-5.0); LYMPH % 12.2 % (24.0-44.0); MEAN CORPUSCULAR HEMOGLOBIN 28.9 pg (27.0-33.0); MEAN CORPUSCULAR HGB CONC 32.2 g/dl (32.0-36.5); MONO # 1.2 10^3/uL (0.0-0.8); MONO % 6.4 % (0.0-5.0); NEUTROPHILS % 80.5 % (36.0-66.0); PLATELET COUNT, AUTOMATED 945 10^3/uL (150-450); RED BLOOD COUNT 4.18 10^6/uL (4.30-6.10); WHITE BLOOD COUNT 18.7 10^3/uL (4.0-10.0)
[2019-06-07 01:38] LABS: ALBUMIN 2.9 GM/DL (3.2-5.2); ALT/SGPT 11 U/L (12-78); BILIRUBIN,DIRECT 0.1 MG/DL (0.0-0.2); BILIRUBIN,TOTAL 0.4 MG/DL (0.2-1.0); BLOOD UREA NITROGEN 13 MG/DL (7-18); CARBON DIOXIDE LEVEL 28 MEQ/L (21-32); CHLORIDE LEVEL 100 MEQ/L (98-107); CREATININE FOR GFR 0.73 MG/DL (0.70-1.30); GLOMERULAR FILTRATION RATE > 60.0 (>60); GLUCOSE, FASTING 107 MG/DL (70-100); LIPASE 42 U/L (73-393); POTASSIUM SERUM 4.2 MEQ/L (3.5-5.1); SODIUM LEVEL 135 MEQ/L (136-145); TOTAL PROTEIN 6.2 GM/DL (6.4-8.2)
[2019-06-07] MEDS ORDERED: HYDROMORPHONE HCL 0.5 MG/ 0.5 ML SYRINGE (J1170 PER 1) IV ONE (01:45)
--- NOTE | 2019-06-07 02:10 | REPVR ---
PROCEDURE INFORMATION: Exam: CT Abdomen And Pelvis With Contrast Exam date and time: 06/07/2019 12:26 AM Age: 44 years old Clinical indication: Abdominal pain; Generalized; Prior surgery; Surgery date: 3-7 days post-operative; Surgery type: Left psoas abscess drain placement; Additional info: HX of abscess with drain, check placement TECHNIQUE: Imaging protocol: Computed tomography of the abdomen and pelvis with intravenous contrast. Radiation optimization: All CT scans at this facility use at least one of these dose optimization techniques: automated exposure control; mA and/or kV adjustment per patient size (includes targeted exams where dose is matched to clinical indication); or iterative reconstruction. Contrast material: ISO; Contrast volume: 100 ml; Contrast route: AC; COMPARISON: CT ABD/PEL W/IV ORAL CONTRAS 05/31/2019 9:28 AM FINDINGS: Tubes, catheters and devices: Patient previously had a large abscess at the left ileo psoas region and there is a pigtail catheter in place. The previous abscess has been removed. Lungs: Clear appearing lung bases. Heart: Normal size heart and no evidence of pericardial effusion. Liver: Normal appearing liver. Gallbladder and bile ducts: Normal gallbladder. Normal common bile duct. Pancreas: Normal pancreas. Spleen: Normal. No splenomegaly. Adrenals: Normal adrenal glands. Kidneys and ureters: There is enhancement of both kidneys. Stomach and bowel: There is now massive distension of the right, transverse and left colon with contrast and air fluid levels. There is a transition to severely thickened narrowed left colon/lower left colon near the region of the drainage tube. On the coronal reformatted images this area has the appearance of an annular lesion/apple-core lesion and may be the result of malignant neoplasm or inflammatory mass. The colon distal to this demonstrates decompression and a small amount of contrast. Most of the small bowel is decompressed however there are loops of small bowel with secretions. The small bowel is severely compressed secondary to the massive distention of the colon. There is also compression of the stomach by the massive distention of the colon. This is consistent with massive megacolon and thought to be due to partial obstruction at the lower left colon by an annular lesion. Other causes of megacolon include denervation, ischemia, toxic megacolon. Appendix: With contrast and milk calcium. Intraperitoneal space: There is no evidence of pneumoperitoneum. There is a large amount of free fluid within the pelvis and also free fluid throughout the abdomen which has markedly increased since 05/31/2019 examination. Vasculature: There is opacification of the aorta with severe irregular and partially calcified atherosclerotic plaque along the left side. There is opacification of the SMV and the SMA. There is opacification of the renal arteries. Lymph nodes: There is no evidence of lymphadenopathy. Bladder: Contrast is seen within the urinary bladder. Reproductive: Unremarkable as visualized. Bones/joints: Unremarkable. No acute fracture. Soft tissues: Unremarkable. IMPRESSION: 1. Massive distention of the right, transverse and left colon consistent with megacolon. Contrast and air fluid levels fill this massively distended colon. At the lower left colon there is what appears to be an annular/apple-core type lesion which may represent a malignant neoplasm or a inflammatory lesion. The appearance is more consistent with a annular malignant lesion and correlation with colonoscopy would be important. This probable lesion is near the left-sided drainage tube. No significant abscess remaining. 2. Other causes of megacolon listed above. 3. Development of a very large amount of free fluid through the abdomen and especially within the pelvis markedly increasing since 05/31/2019. 4. The massively distended colon would have an increased risk of perforation. No definite evidence of perforation at this time. Electronically signed by: Gary Sandy On 06/07/2019 02:11:53 AM
[2019-06-07] MEDS ORDERED: NS 1,000 ML IV SCH (03:15)
[2019-06-07] MEDS ORDERED: SUBO8MIS SL (03:21)
[2019-06-07] MEDS ORDERED: AUGM875T28 PO (03:21)
[2019-06-07] MEDS: D5W/0.9% SODIUM CHLORIDE 1,000 ML IV SCH ×2 (04:04→16:44)
[2019-06-07] MEDS: MORPHINE 4 MG/ML 1ML VIAL/SYRINGE (J2270) IV PRN ×3 (04:04→08:58)
[2019-06-07] MEDS: PIPERACILLIN/TAZOBACTAM SOD 3.375 GM in D5W MINI-BAG PLUS 50 ML IV SCH ×2 (04:04→09:00)
--- NOTE | 2019-06-07 04:20 | HPEPDOC ---
[facility] [place] Date of Admission Jun 07, 2019 Date of Service: Jun 07, 2019 Attending Physician: KARON ABURTO MD History and Physical TIME OF SERVICE: 3:15 AM CHIEF COMPLAINT: Abdominal pain HISTORY OF PRESENT ILLNESS: This is a 44-year-old male who presents with complaints of 10 /10 in severity lower abdominal pain associated with constipation and nausea. He denies having vomiting or diarrhea. The pain meds he received in the ER helped. He recently had a drain placed by Dr. Ackerman interventional radiologist Li for an abscess. He denies knowing the primary reason why he developed the abscess. REVIEW OF SYSTEMS: 12 point review of systems negative except as listed in HPI PAST MEDICAL/ SURGICAL HISTORY: He denies having any medical problems. He has a drain placed for an abscess, but reports that he doesn't know why abscess developed SOCIAL HISTORY: He smokes He has a history of opiate abuse FAMILY HISTORY: None ALLERGIES: Please see below. HOME MEDICATIONS: Please see below. PHYSICAL EXAMINATION: VITAL SIGNS: Please see below. GEN: Slim build/ well developed/ appears older than stated age INTEGUMENT: not flushed/ not jaundice / drain at left lower abdomen is draining dark brown fluid into a bag HEENT: NCAT / lips acyanotic /mucus membranes moist and pink CVS: RRR/NMRG/ no lower extremity edema LUNGS: lungs are clear to auscultation bilaterally on room air ABDOMEN: Contour (flat) / firm and tender with palpation MSK/EXTREMITIES: range of motion intact in all 4 extremities NEURO: CN 2-12 are grossly intact / speech is not dysarthric / gait is normal PSYCH: alert and oriented to person place and time/ able to understand and follow all commands LABORATORY DATA: See below. IMAGING: CT of the abdomen" IMPRESSION: 1. Massive distention of the right, transverse and left colon consistent with megacolon. Contrast and air fluid levels fill this massively distended colon. At the lower left colon there is what appears to be an annular/apple-core type lesion which may represent a malignant neoplasm or a inflammatory lesion. The appearance is more consistent with a annular malignant lesion and correlation with colonoscopy would be important. This probable lesion is near the left-sided drainage tube. No significant abscess remaining. 2. Other causes of megacolon listed above. 3. Development of a very large amount of free fluid through the abdomen and especially within the pelvis markedly increasing since 05/31/2019. 4. The massi vely distended colon would have an increased risk of perforation. No definite evidence of perforation at this time. MICROBIOLOGY: Please see below. ASSESSMENT: Mr. Huntley is a 44-year-old male with a past medical history of intra- abdominal abscess with drain placement was admitted for evaluation of megacolon, possibly due to mass affect from a colonic mass. PLAN: 1. Megacolon Possibly due to mass effect from a probable malignant lesion at left lower colon. He has leukocytosis but no other SIRS criteria Plan: Admit to medical floor/nothing by mouth/IV fluids/requested medical records from [facility]/surgery consult to determine if he needs surgery / empiric Zosyn/morphine when necessary for pain 2. Intra-abdominal abscess. According to the patient has a follow-up appointment with Dr. Ackerman at [facility] for additional imaging studies Plan: Requested records for [facility] 3. Normocytic normochromic anemia associated with thrombocytosis. Likely due to iron deficiency/blood loss anemia due to a colon mass. Plan: Follow-up iron studies and CBC 4. Tobacco abuse. Plan: Smoking cessation education/nicotine patch DVT PROPHYLAXIS: SCDs case he needs surgery DISPOSITION: Home after more than 2 midnight's stay Vital Signs Vital Signs Date Time Temp Pulse Resp B/P (MAP) Pulse Ox O2 Delivery O2 Flow Rate FiO2 06/07/19 04:05 97.2 71 20 142/86 99 Room Air Laboratory Data Labs 24H Laboratory Tests 2 06/07/19 00:52: Immature Granulocyte % (Auto) 0.5, Neutrophils (%) (Auto) 80.5H, Lymphocytes (%) (Auto) 12.2L, Monocytes (%) (Auto) 6.4H, Eosinophils (%) (Auto) 0.2, Basophils (%) (Auto) 0.2, Neutrophils # (Auto) 15.0H, Lymphocytes # (Auto) 2.3, Monocytes # (Auto) 1.2H, Eosinophils # (Auto) 0.0, Basophils # (Auto) 0.0, Nucleated Red Blood Cells % (auto) 0.0, Anion Gap 7L, Glomerular Filtration Rate > 60.0, Lactic Acid Level 1.3, Calcium Level 9.0, Total Bilirubin 0.4, Direct Bilirubin 0.1, Aspartate Amino Transf (AST/SGOT) 11, Alanine Aminotransferase (ALT/SGPT) 11L, Alkaline Phosphatase 81, Total Protein 6.2L, Albumin 2.9L, Albumin/Globulin Ratio 0.88L, Lipase 42L CBC/BMP Laboratory Tests 06/07/19 00:52 Microbiology Microbiology 06/07/19 Blood Culture, Received Pending 06/07/19 Blood Culture, Received Pending Home Medications Scheduled Amoxicillin/Potassium Clav (Augmentin 875-125 Tablet) 1 Each Tablet, 1 TAB PO BID Buprenorphine HCl/Naloxone HCl (Suboxone 8 mg-2 mg Sl Film) 1 Each Film, 1 STRIP SL DAILY Scheduled PRN Ibuprofen (Ibuprofen) 800 Mg Tablet, 800 MG PO Q6H PRN for PAIN Allergies Coded Allergies: No Known Allergies (Unverified , 04/13/18) A-FIB/CHADSVASC A-FIB History Current/History of A-Fib/PAF?: No Current PO Anticoag Therapy: No KARON ABURTO MD Jun 07, 2019 04:20
[2019-06-07 05:15] LABS: FERRITIN 188 NG/ML (26-388); IRON (FE) 35 UG/DL (65-175); PERCENT SATURATION 12.5 % (19.7-50.0); TOTAL IRON BINDING CAPACITY 280 UG/DL (250-450)
[2019-06-07] MEDS ORDERED: KETOROLAC 30 MG/ML VIAL (J1885) IV ONE (06:00)
[2019-06-07] MEDS: NICOTINE 14 MG/24 HR TRANSDERMAL TD SCH (08:59)
[2019-06-07] MEDS ORDERED: HYDROmorphone HCL 2 MG/ML 1ML VIAL (J1170) IV PRN (09:30)
[2019-06-07] MEDS ORDERED: PILL CUTTER 1 EACH XX PRN (09:45)
--- NOTE | 2019-06-07 10:00 | REP ---
Portable abdomen, single AP view with the patient semi upright: Comparison studies are the abdomen/pelvis CT studies dated 06/07/2019 at 12:51 a.m. and 05/31/2019. There is marked distension of the entire colon as on the most recent abdomen/pelvis CT. There is a nasogastric tube terminating satisfactorily in the abdominal left upper quadrant. Impression: Marked colonic distension. Nasogastric tube. Electronically Signed by Dayton Alvarenga MD 06/07/2019 09:52 A
--- NOTE | 2019-06-07 10:27 | CR ---
DATE OF CONSULTATION: 06/07/2019 CHIEF COMPLAINT: Abdominal distension with abdominal pain, recent CT-guided drainage of a psoas abscess. BRIEF HISTORY OF PRESENT ILLNESS: The patient is a 44-year-old male that was seen approximately a week ago in the emergency room here for abdominal distension and development of a psoas abscess. Essentially his history goes back to a 2 month history of changes in bowel habits with some abdominal cramps, pains and thought he was mostly constipated. He has been on chronic Suboxone has had a high dose of medication and thus thought it was secondary to that medication. He presented to the emergency room and because of lack of interventionalist was transferred for drainage, had this drained and essentially was discharged home with the drainage in place. However, over the last 48 hours noticed that he had increasing abdominal distension and pain and presents for additional recommendations treatment. His pain is 10 over 10 however, even when he gets his medication it is 10 over 10. His white count is elevated on admission of 18.[address] scan shows colonic distension with the abscess, and thus this was called an apple core lesion. However, initially there is some question whether this was diverticulitis with a iliopsoas abscess associated with this or what the etiology was. In any case, presents with a increasing abdominal distension and pain. When we look at his labs he does appear a little bit more hemoconcentrated on this study with his hematocrit up compared to what was previously of 31 approximately although his BUN has not bumped significantly. He does not have a lactic acidosis on his studies and he has been afebrile without a significant tachycardia and without significant respiratory tachypnea. PAST MEDICAL HISTORY: His past medical history is significant for history of Suboxone use otherwise negative. MEDICATIONS: Include: Suboxone, ibuprofen and Augmentin. PHYSICAL EXAMINATION: Physical exam reveals a 44-year-old male who states his abdominal distension is worse compared to last night. He is having much more pain. He is writhing in bed, although he is not significantly tachycardiac and he is not significantly tachypnic, not hypotensive, not septic appearing per se. He is significantly distended and tympanitic. IMPRESSION AND PLAN: Patient has evidence of history of partial colonic obstruction and the etiology is hard to know if this is a cancer or whether this is an area of diverticulitis that is stricturing down or whether this as inflammatory changes secondary to the abscess itself. From my concern at this time and given his white count, I would anticipate that this may be a inflammatory process that is worsened and we may need to change his antibiotics around, may need to irrigate out this psoas abscess, drain if necessary. Over the last several hours he did not tolerate just being nothing by mouth alone and thus we will place an nasogastric (NG) tube and see if he has some relief of this. However, I do feel that depending on the results his options are significantly limited at this time, I would like to make sure that he has an IV that is increased, it looks like it was maintenance at this time and we will increase that and we will see with NG tube decompression does. NG tube was inserted and a great deal of air was obtained and approximately 150 mL of bile fluid was obtained from the NG tube and the patient definitely had less distension in the upper abdomen, still significantly distended in the lower abdomen. However, he looks significantly more comfortable, not writhing in pain and looks overall not in significant distress as he will was previously. Thus at this point will get a KUB to make sure are placement of the NG tube is adequate and not just into the proximal portion of the stomach. We will add some simethicone although it may not make too much for a difference but we will also get him to see if this NG tube decompression slowly improves his overall situation. If we get some slight but slow progressive improvement, then I would recommend continuing on this course. If we still are not getting significantly tachycardiac and if we have some improvement I would like to see if the antibiotic regime etc. will make a significant difference with his overall progress, right now he is on some piperacillin tazobactam however he was on Augmentin beforehand and I would do feel that possibly converting him over to some Cipro, Flagyl may be more appropriate.
[2019-06-07] MEDS ORDERED: MIDAZOLAM INJ 2 MG/2 ML VIAL (J2250) As Ordered ONE ×2 (10:32→11:02)
[2019-06-07] MEDS ORDERED: dexameTHASONE 4 MG/ML 1ML VIAL (J1100) As Ordered ONE (10:32)
[2019-06-07] MEDS ORDERED: LIDOCAINE 2% INJ 100 MG/5 ML SDV (FOR ANES.) As Ordered ONE (10:32)
[2019-06-07] MEDS ORDERED: SUCCINYLCHOLINE 100 MG/5 ML SYRINGE (J0330) As Ordered ONE (10:32)
[2019-06-07] MEDS ORDERED: ONDANSETRON 4MG/2ML VIAL (J2405) As Ordered ONE (10:32)
[2019-06-07] MEDS ORDERED: propofoL 200 MG/20 ML VIAL As Ordered ONE (10:32)
[2019-06-07] MEDS ORDERED: BUPIVACAINE LIPOSOME/PF 1.3% 20ML VIAL (13.3MG/ML)(EXPAREL)(C9290 PER1MG) As Ordered ONE (10:41)
[2019-06-07] MEDS ORDERED: fentaNYL 100 MCG/2 ML INJECTION (J3010) As Ordered ONE (11:02)
[2019-06-07] MEDS ORDERED: BUPIVACAINE HCL 0.25% 10 ML VIAL As Ordered ONE (11:11)
[2019-06-07] MEDS ORDERED: CIPROFLOXACIN/D5W 400 MG/200 ML BAG (J0744) As Ordered ONE (11:11)
--- NOTE | 2019-06-07 11:12 | IPN ---
DATE: NO DICTATION
[2019-06-07] MEDS ORDERED: fentaNYL 100 MCG/2 ML INJECTION (J3010) IV ONE (11:15)
[2019-06-07] MEDS: metroNIDAZOLE 500 MG in IV 1 EA IV SCH ×2 (11:16→20:37)
[2019-06-07] MEDS ORDERED: ROCURONIUM BROMIDE 50 MG/5 ML VIAL As Ordered ONE ×2 (11:50→11:55)
[2019-06-07] MEDS ORDERED: fentaNYL 250 MCG/5 ML INJECTION (J3010) As Ordered ONE (11:55)
[2019-06-07] MEDS: CIPROFLOXACIN 400 MG in IV 1 EA IV SCH (12:00)
[2019-06-07] MEDS ORDERED: BUPIVACAINE HCL 0.25% 30 ML VIAL As Ordered ONE (12:40)
--- NOTE | 2019-06-07 12:59 | IPNPDOC ---
Text Note Date of Service The patient was seen on 06/07/19. NOTE Subjective: Patient complains of severe abdominal pain 10 out of 10, crying b ecause of pain, Dr Crain put NG tube with significant elevation of his symptoms Objective: GENERAL APPEARANCE: In severe distress HEENT: Normocephalic, atraumatic. Mucous members moist and pink CARDIOVASCULAR: S1-S2 tachycardia at rate 110 LUNGS: Diminished lung sounds ABDOMEN: Abdomen is guarded, tender, positive rebound MUSCULOSKELETAL: Range of motion is intact in all 4 extremities NEUROLOGICAL: Cranial nerves II-12 are grossly intact. Speech is not dysarthric Patient's 44 years old male with wo significant past medical history presented hospital with severe abdominal pain. Patient was found to have massively distended colon. Toxic megacolon Patient had a history of intra-abdominal abscess with drain placement in another facility CT scan was done and showed Massive distention of the right, transverse and left colon consistent with megacolon. Contrast and air fluid levels fill this massively distended colon. At the lower left colon there is what appears to be an annular/apple-core type lesion which may represent a malignant neoplasm or a inflammatory lesion. The appearance is more consistent with a annular malignant lesion and correlation with colonoscopy would be important. Development of a very large amount of free fluid through the abdomen and especially within the pelvis markedly increasing since 05/31/2019. Continue NG-tube Surgical team follows him Continue broad-spectrum antibiotics Sepsis Patient developed tachycardia with leukocytosis and dyspnea secondary to intra-abdominal infection IV fluid Blood culture Urine culture Broad-spectrum antibiotics started Intra-abdominal abscess Drain was placed in the [facility] Normocytic normochromic anemia associated with thrombocytosis Iron study, B12, folate ordered Tobacco abuse. Smoking cessation education/nicotine patch VS,Fishbone, I+O VS, Fishbone, I+O Laboratory Tests 06/07/19 00:52 Vital Signs Date Time Temp Pulse Resp B/P (MAP) Pulse Ox O2 Delivery O2 Flow Rate FiO2 06/07/19 11:15 73 18 146/85 (105) 100 Nasal Cannula 2 06/07/19 08:00 97.3 I&O- Last 24 Hours up to 6 AM 06/07/19 05:59 Intake Total 1140 ml Output Total 0 ml Balance 1140 ml MEL LARSEN DO Jun 07, 2019 12:59
[2019-06-07] MEDS ORDERED: WALLBOXKEY XX PRN (13:00)
[2019-06-07] MEDS ORDERED: ONDANSETRON 4MG/2ML VIAL (J2405) IV PRN ×3 (13:00→15:15)
[2019-06-07] MEDS ORDERED: SIMETHICONE 80 MG CHEW TAB PO SCH (13:00)
[2019-06-07] MEDS ORDERED: METOCLOPRAMIDE INJ 10MG/2ML VIAL (J2765) IV PRN (13:00)
[2019-06-07] MEDS ORDERED: NALOXONE INJ 0.4 MG/1 ML VIAL (J2310) IV PRN ×2 (13:00→14:45)
[2019-06-07] MEDS ORDERED: EPIDURAL/PCA KEYS XX PRN ×2 (13:00→14:45)
[2019-06-07] MEDS ORDERED: diphenhydrAMINE INJ 50MG/ML VIAL (J1200) IV PRN ×2 (13:00→14:45)
[2019-06-07] MEDS ORDERED: KETOROLAC 60 MG/2 ML VIAL (J1885) As Ordered ONE (13:48)
[2019-06-07] MEDS ORDERED: ACETAMINOPHEN 1000MG 100ML IV BTL (OFIRMEV) (J0131 PER 10MG) As Ordered ONE (13:48)
[2019-06-07] MEDS ORDERED: SUGAMMADEX SODIUM 500 MG/5 ML VIAL (BRIDION) As Ordered ONE (13:48)
[2019-06-07] MEDS ORDERED: ePHEDrine SULFATE 25 MG/5 ML(5MG/ML) SYRINGE As Ordered ONE (14:04)
[2019-06-07] MEDS ORDERED: PHENYLephrine HCL 500 MCG/5 ML (100MCG/ML) SYRINGE (J2370) As Ordered ONE (14:04)
[2019-06-07] MEDS ORDERED: NALBUPHINE HCL 10 MG/ML AMP (J2300) IV PRN (14:45)
[2019-06-07] MEDS: BUPIVACAINE/NACL BAG 250 ML EPIDURAL SCH (14:50)
[2019-06-07] MEDS ORDERED: MORPHINE 1MG/ML IN 0.9% NACL 100ML IV BAG As Ordered ONE (15:11)
[2019-06-07] MEDS ORDERED: LR 1,000 ML IV SCH (15:15)
[2019-06-07] MEDS ORDERED: oxyCODONE 5MG TAB PO PRN (15:15)
[2019-06-07] MEDS ORDERED: fentaNYL 100 MCG/2 ML INJECTION (J3010) IV PRN (15:15)
[2019-06-07] MEDS: MORPHINE 1MG/ML IN 0.9% NACL 100ML IV BAG IV PRN (15:40)
[2019-06-07 15:48] LABS: BASO % 0.1 % (0.0-1.0); HEMATOCRIT 32.8 % (42.0-52.0); HEMOGLOBIN 10.8 g/dl (13.5-17.5); LYMPH # 1.1 10^3/uL (1.5-5.0); LYMPH % 4.8 % (24.0-44.0); MEAN CORPUSCULAR HEMOGLOBIN 29.8 pg (27.0-33.0); MEAN CORPUSCULAR HGB CONC 32.9 g/dl (32.0-36.5); MEAN CORPUSCULAR VOLUME 90.4 fl (80.0-96.0); MONO # 0.9 10^3/uL (0.0-0.8); NEUTROPHILS # 21.1 10^3/uL (1.5-8.5); NEUTROPHILS % 90.8 % (36.0-66.0); RED BLOOD COUNT 3.63 10^6/uL (4.30-6.10); WHITE BLOOD COUNT 23.3 10^3/uL (4.0-10.0)
[2019-06-07 15:52] LABS: PLATELET COUNT, AUTOMATED 844 10^3/uL (150-450)
[2019-06-07 16:15] LABS: ALBUMIN 2.2 GM/DL (3.2-5.2); ALT/SGPT 8 U/L (12-78); BILIRUBIN,TOTAL 0.5 MG/DL (0.2-1.0); BLOOD UREA NITROGEN 15 MG/DL (7-18); CALCIUM LEVEL 7.8 MG/DL (8.5-10.1); CARBON DIOXIDE LEVEL 28 MEQ/L (21-32); CHLORIDE LEVEL 104 MEQ/L (98-107); GLOMERULAR FILTRATION RATE > 60.0 (>60); GLUCOSE, FASTING 121 MG/DL (70-100); MAGNESIUM LEVEL 1.7 MG/DL (1.8-2.4); POTASSIUM SERUM 4.7 MEQ/L (3.5-5.1); SODIUM LEVEL 139 MEQ/L (136-145); TOTAL PROTEIN 4.6 GM/DL (6.4-8.2)
[2019-06-07] MEDS: KETOROLAC 30 MG/ML VIAL (J1885) IV SCH ×2 (16:44→20:38)
[2019-06-07] MEDS: NS 1,000 ML IV SCH (16:45)
[2019-06-07] MEDS ORDERED: MAG SULF 1GM/100ML (MAG RUN) 1 GM in IV 1 EA IV ONE (18:15)
[2019-06-07] MEDS: ALVIMOPAN 12 MG CAPSULE (ENTEREG) PO SCH (20:38)
[2019-06-08] VITALS (24 sets, daily range): BP systolic 118–146; BP diastolic 72–81; O2SAT 91–99
[2019-06-08] MEDS: D5W/0.9% SODIUM CHLORIDE 1,000 ML IV SCH ×4 (00:42→21:59)
[2019-06-08] MEDS: CIPROFLOXACIN 400 MG in IV 1 EA IV SCH ×3 (00:42→23:39)
[2019-06-08] MEDS: MORPHINE 1MG/ML IN 0.9% NACL 100ML IV BAG IV PRN ×2 (02:55→13:49)
[2019-06-08] MEDS: KETOROLAC 30 MG/ML VIAL (J1885) IV SCH ×4 (02:56→20:51)
[2019-06-08] MEDS: metroNIDAZOLE 500 MG in IV 1 EA IV SCH ×3 (05:26→20:51)
[2019-06-08 07:50] LABS: HEMATOCRIT 35.3 % (42.0-52.0); HEMOGLOBIN 11.2 g/dl (13.5-17.5); MEAN CORPUSCULAR HGB CONC 31.7 g/dl (32.0-36.5); MEAN CORPUSCULAR VOLUME 91.5 fl (80.0-96.0); PLATELET COUNT, AUTOMATED 818 10^3/uL (150-450); RED BLOOD COUNT 3.86 10^6/uL (4.30-6.10)
[2019-06-08 08:29] LABS: ALBUMIN 1.9 GM/DL (3.2-5.2); ALT/SGPT 8 U/L (12-78); BILIRUBIN,TOTAL 0.4 MG/DL (0.2-1.0); BLOOD UREA NITROGEN 12 MG/DL (7-18); CALCIUM LEVEL 7.6 MG/DL (8.5-10.1); CARBON DIOXIDE LEVEL 28 MEQ/L (21-32); CHLORIDE LEVEL 106 MEQ/L (98-107); CREATININE FOR GFR 0.54 MG/DL (0.70-1.30); GLOMERULAR FILTRATION RATE > 60.0 (>60); GLUCOSE, FASTING 112 MG/DL (70-100); POTASSIUM SERUM 4.4 MEQ/L (3.5-5.1); SODIUM LEVEL 138 MEQ/L (136-145); TOTAL PROTEIN 4.9 GM/DL (6.4-8.2)
[2019-06-08] MEDS: ALVIMOPAN 12 MG CAPSULE (ENTEREG) PO SCH ×2 (08:34→20:51)
[2019-06-08] MEDS: NICOTINE 14 MG/24 HR TRANSDERMAL TD SCH (08:34)
--- NOTE | 2019-06-08 10:33 | IPNPDOC ---
Text Note Date of Service The patient was seen on 06/08/19. NOTE Subjective: Patient continues to complain of severe abdominal pain he grade 8 out of 10. He has NG tube, dark green discharge via intermittent suction Objective: GENERAL APPEARANCE: In moderate distress HEENT: Normocephalic, atraumatic. Mucous members moist and pink CARDIOVASCULAR: S1-S2 tachycardia at rate 110 LUNGS: Diminished lung sounds ABDOMEN: Abdomen soft, diffusely tender, colostomy bag in place MUSCULOSKELETAL: Range of motion is intact in all 4 extremities NEUROLOGICAL: Cranial nerves II-12 are grossly intact. Speech is not dysarthric Patient's 44 years old male with wo significant past medical history presented to the hospital with severe abdominal pain and sepsis. Patient was found to have massively distended colon. Abdominal CT showed at the lower left colon there is what appears to be an annular/apple-core type lesion which may represent a malignant neoplasm or a inflammatory lesion. Bowel resection was done on 06/07/[address] Crain. Status post bowel resection Surgical team follows him Continue NG suction Pain management Continue broad-spectrum antibiotics Toxic megacolon Resolved after surgery Patient had a history of intra-abdominal abscess with drain placement in another facility CT scan was done and showed Massive distention of the right, transverse and left colon consistent with megacolon. Contrast and air fluid levels fill this massively distended colon. At the lower left colon there is what appears to be an annular/apple-core type lesion which may represent a malignant neoplasm or a inflammatory lesion. The appearance is more consistent with a annular malignant lesion and correlation with colonoscopy would be important. Development of a very large amount of free fluid through the abdomen and especially within the pelvis markedly increasing since 05/31/2019. Bowel resection was done on 06/07/[address] Crain Sepsis Resolved Leukocytosis improved Patient developed tachycardia with leukocytosis and dyspnea secondary to intra-abdominal infection IV fluid Blood culture negative for 24 hours Intra-abdominal abscess Drain was placed in the [facility] Normocytic normochromic anemia associated with thrombocytosis Iron studies shows low level iron IV ordered B12, folate level pending Tobacco abuse. Smoking cessation education/nicotine patch VS,Fishbone, I+O VS, Fishbone, I+O Laboratory Tests 06/07/19 15:20 06/08/19 07:22 Vital Signs Date Time Temp Pulse Resp B/P (MAP) Pulse Ox O2 Delivery O2 Flow Rate FiO2 2/2/20 08:00 97.8 89 20 137/81 (99) 100 Nasal Cannula 2.0 I&O- Last 24 Hours up to 6 AM 06/08/19 06:00 Intake Total 5455 ml Output Total 2700 ml Balance 2755 ml MEL LARSEN DO Jun 08, 2019 10:33
[2019-06-08] MEDS ORDERED: IRON SUCROSE 100 MG in NS 100 ML IV ONE (13:00)
[2019-06-08] MEDS: BUPIVACAINE/NACL BAG 250 ML EPIDURAL SCH (13:52)
--- NOTE | 2019-06-08 15:01 | IPN ---
DATE: 06/08/2019 Subjectively, the patient states that he is feeling better than he did preoperatively. He is overall doing well. He has noticed that his ostomy has been putting out, but also noticed that his nasogastric (NG) tube is putting out a fair bit of fluid, as well as some fluid out of his Anderson-Wright drain. In general, the patient overall appears much more comfortable than he was previously. From a pain standpoint, he seems to be doing adequately well with his patient-controlled analgesia (HAND PROFILER) and with his epidural, his Exparel that we injected locally, et cetera.. He was hoping to get started on some liquids. Objectively, the patient's white count is down to 18,000 from 23,000 yesterday. Hematocrit has come up appropriately after dilutional issues yesterday and BUN and creatinine is stable. He is had good urine output this morning and his intravenous (IV) rate has been dropped and his stool output was about 1000 mL last night, but still continues to put out some watery liquid stool this morning/afternoon. His NG tube drainage still has a significant amount of bilious and dark bilious fluid coming out and his Anderson-Wright drain has some significant amount of serous fluid out. On his physical exam, his abdomen is softly distended, nontender except barrie-incisionally. His dressing is clean and dry. His Anderson-Wright drain is serosanguineous. His NG tube is draining adequately and his ostomy site is pink, clean and draining nicely as well. IMPRESSION AND PLAN 1. Pain. Pain control seems to be adequate with our current regime. He does not seem to be going through any withdrawals of his narcotic issues with the HAND PROFILER in place. We will continue with this current regime for now. 2. Fluid status. I agree with decreasing his IV fluids. He still getting a fair bit of fluids with his HAND PROFILER and his antibiotics and IV medications and thus, it seems reasonable amount of fluids. However, he still has a fair bit of gastric, as well as serous peritoneal ascites fluid that is draining that will compensate that issue, and I anticipate his urine output will start to drop off over the next 24 hours or so. 3. Gastrointestinal (GI). Although his ostomy has been putting out and it is pink, clean and a lot of edema has gotten out of the wall of this, he still has fair bit of NG tube drainage and, with the amount of manipulation of bowel, I would have concerns that he will have persistent small bowel ileus for a few days, as typically in this case, and may take another couple days before it resolves. Thus, we will keep him nothing by mouth, but allow him some ice chips at this time. 4. Arboleda catheter. Although he has adequate pain control with his current medications, I am not convinced that he is going to be able to, number one, use a urinal, or number two, get up out of the bed and use the bathroom at this time. He is still in enough discomfort that I feel that it, from a pain standpoint, may not be reasonable to remove his Arboleda catheter and given the amount of fluid changes at this time, i would like to monitor this for another 24 hours prior to considering taking this out. In any case, the patient seems to be making some slow but progressive improvement. We will see how he is doing tomorrow.
[2019-06-08] MEDS: NS 1,000 ML IV SCH (15:15)
[2019-06-09] VITALS (13 sets, daily range): BP systolic 112–131; BP diastolic 63–78; O2SAT 92–94
[2019-06-09] MEDS: MORPHINE 1MG/ML IN 0.9% NACL 100ML IV BAG IV PRN ×3 (00:59→22:26)
[2019-06-09] MEDS: D5W/0.9% SODIUM CHLORIDE 1,000 ML IV SCH (01:38)
[2019-06-09] MEDS: KETOROLAC 30 MG/ML VIAL (J1885) IV SCH ×3 (02:33→21:09)
[2019-06-09] MEDS: metroNIDAZOLE 500 MG in IV 1 EA IV SCH ×3 (04:09→21:10)
[2019-06-09 05:40] LABS: BASO % 0.1 % (0.0-1.0); EOS # 0.1 10^3/uL (0.0-0.5); EOS % 0.6 % (0.0-3.0); HEMOGLOBIN 10.4 g/dl (13.5-17.5); LYMPH # 1.5 10^3/uL (1.5-5.0); LYMPH % 13.8 % (24.0-44.0); MEAN CORPUSCULAR HEMOGLOBIN 29.5 pg (27.0-33.0); MEAN CORPUSCULAR HGB CONC 32.5 g/dl (32.0-36.5); MEAN CORPUSCULAR VOLUME 90.7 fl (80.0-96.0); MONO # 0.9 10^3/uL (0.0-0.8); MONO % 8.8 % (0.0-5.0); NEUTROPHILS % 76.3 % (36.0-66.0); PLATELET COUNT, AUTOMATED 751 10^3/uL (150-450); RED BLOOD COUNT 3.53 10^6/uL (4.30-6.10); WHITE BLOOD COUNT 10.5 10^3/uL (4.0-10.0)
[2019-06-09 06:05] LABS: BLOOD UREA NITROGEN 10 MG/DL (7-18); CALCIUM LEVEL 7.6 MG/DL (8.5-10.1); CARBON DIOXIDE LEVEL 34 MEQ/L (21-32); CHLORIDE LEVEL 103 MEQ/L (98-107); CREATININE FOR GFR 0.56 MG/DL (0.70-1.30); GLOMERULAR FILTRATION RATE > 60.0 (>60); GLUCOSE, FASTING 93 MG/DL (70-100); MAGNESIUM LEVEL 2.1 MG/DL (1.8-2.4); POTASSIUM SERUM 3.4 MEQ/L (3.5-5.1); SODIUM LEVEL 142 MEQ/L (136-145)
--- NOTE | 2019-06-09 06:58 | RO ---
DATE OF PROCEDURE: 06/07/2019 PREOPERATIVE DIAGNOSIS: Obstructing descending colon/sigmoid colon mass. POSTOPERATIVE DIAGNOSIS: Obstructing descending colon/sigmoid colon mass. PROCEDURE: 1. Sigmoid colectomy with colostomy. 2. Splenic flexure takedown. 3. Right colectomy with the ileocolic anastomosis. SURGEON: Laron Crain Jr., MD BULK INTAKE WORKER: ANESTHESIA: General endotracheal anesthesia ESTIMATED BLOOD LOSS: Minimal. FLUIDS: Crystalloid. BRIEF PROCEDURE SUMMARY: The patient was brought to the operating room was given general anesthesia. After adequate anesthesia and preoperative antibiotics were given, the patient was prepped and draped in the usual sterile fashion. The patient actually did have a relatively large liquid bowel movement on the table; however, was still tensely distended, even after intubation. Thus, at this point, a midline incision was made with skin knife. Electrocautery was used cut through dermis and underlying subcutaneous tissue down through the fascia into the peritoneal cavity. The small bowel was dilated to some extent, but it was the colon that was significantly dilated. Eventually, after adequately opening up the abdomen, placing the Bookwalter in to get retraction, what was obvious was that I was not going to be able to proceed with operative intervention unless we proceeded with decompression of the colon. Thus, a pursestring suture was placed in the cecum. An NG tube was placed in the cecum and suctioned/irrigated until the right colon, transverse colon and small bowel were decompressed. Once this was all nicely decompressed, which took quite a while, and there was probably 3000 mL of fluid that I was able to remove that was succus entericus and more liquid stool, the bowel had been decompressed. Prior to this, I had removed about a liter of ascites in the abdominal cavity, which was serosanguineous ascites. In any case, after all this fluid was removed there was a great deal more visualization of the bowel and I was able to feel the mass in the descending colon just at the junction of descending colon and sigmoid colon area. Then I took down the attachments of the peritoneum to the colon in this area, down to where I could see the white line of Toldt. There was a great deal of inflammatory changes and this was a very hard mass in the colon, and proximal to this the bowel was quite distended and was thickened and it appeared to be chronically thickened. In any case, after mobilizing distally I felt that I would be better off transecting distally and working myself up on the medial aspect as well as working medial lateral and eventually isolating this lesion off the lateral sidewall. There was some scarring of the colon wall to the pelvic sidewall and into the retroperitoneum, which was very difficult to mobilize, but eventually, after some blunt dissection and sharp dissection, electrocautery to control some minimal issues with hemostasis, the colon was able to be mobilized. It still was quite non-mobile, the mesentery in this area, so I had to then go on the medial aspect as well, get a nice little plane behind the mesentery, lift this off proximally, work my way back to this hard area and work distally back to this area to get this off the retroperitoneum in this area. Once I felt that this was nicely off this area, using a JUSTIN vascular load I transected the mesentery and then transected the rest of the proximal colon and sent this to pathology. Because this was the descending colon, it really was not all that redundant in this area. I needed to mobilize white line of Toldt and went up the splenic flexure. At this point, it still was not mobilizing nicely enough to get this to reach the abdominal wall so I had to take down the splenic flexure. Taking the omentum off the transverse colon working myself towards the splenic flexure and then around this way and eventually, after significant mobilization, mostly with blunt dissection and some minimal electrocautery on some loose areolar tissue holding the mesentery down to the Gerota's etc. and even up to the splenic flexure, I was able to mobilize this quite nicely. Even off the area of the lower border of the pancreas, this was nicely mobilized such that the colon would reach the abdominal wall, but this was a slow but progressive process. Eventually, once this was reached, then I turned my attention to the right colon and reviewing and looking at the colon in this area there were some obvious serosal tears, some in the hepatic flexure/transverse colon area. Those I felt would be amenable to oversewing however, there were two significant serosal tears on the cecum where I could see the submucosa, mucosa and it did not look as viable as I would anticipate, it was not pink, it appeared slightly dusky, and instead of opening up the bowel to review this area, and knowing the tension across the bowel may have caused some mucosal necrosis, I felt the safest approach would be to resect this area given that some reperfusion might be associated with mucosal loss, possible GI bleeding, perforation, etc., despite a adequate serosal covering. Thus, the right colon was mobilized first off the white line of Toldt laterally, off the duodenum and the transverse colon as well. Staying relatively close to the middle colic vessel I used the JUSTIN stapler to staple right on the colon side of this and then continuing across the mesentery with a JUSTIN stapler, having a nice window showing me all the ileocolic vessels, the other branches of the arcades etc., nicely after I had mobilize this relatively redundant right colon hepatic flexure area. Once this was performed a [id number] anastomosis with a JUSTIN stapler was created after the right colon was removed with a JUSTIN blue loads and a [id number] anastomosis was created then the enterotomy site closed with a JUSTIN 75 load. This came together nicely without undue tension and the mesentery was brought together with some #3-0 Vicryl, closing up the mesenteric rent in this area. Once this was closed and widely patent, the abdomen was copiously irrigated until clear. No bleeding was appreciated. No other significant abnormalities. Fortunately, I was able to look at the rest of the more proximal colon from the area of obstruction across the sigmoid colon and transverse colon, all appeared nicely viable, pink and when I had opened up the bowel after the [id number] anastomosis was created, the large bowel was nicely viable, pink and did not have any significant oozing from the staple line. In any case, the colostomy was brought out in the left abdomen after the midline was closed using a running PDS from the inferior to the midline and superior to the middle, just in the infraumbilical area. Khoa were used to loosely approximate the bowel and a Anderson-Wright drain and then left in the abdomen, brought out through a left lower quadrant site. The Exparel was placed around the incision, approximately 40 mL, and the subcutaneous tissue and superficial layers of the muscle. A block was not performed at this time given the patient had an epidural in place. Next, the ostomy was fashioned using some #3-0 Vicryl and an ostomy appliance applied, a dry sterile dressing on the incision. The patient was awakened, extubated, brought to recovery room awake, alert and hemodynamically stable. Sponge and needle counts were correct times two.
[2019-06-09] MEDS ORDERED: KETOROLAC 30 MG/ML VIAL (J1885) IV ONE (08:00)
[2019-06-09] MEDS: ALVIMOPAN 12 MG CAPSULE (ENTEREG) PO SCH ×2 (08:47→21:09)
[2019-06-09] MEDS: NICOTINE 14 MG/24 HR TRANSDERMAL TD SCH (08:48)
--- NOTE | 2019-06-09 10:31 | IPN ---
DATE OF SERVICE: 06/09/2019 He complains of 7/10 pain that comes and goes. Lasts for about 20 or 30 minutes. Better with Toradol. In the abdomen without any radiation. No fever or chills. No nausea. Nasogastric (NG) tube draining brownish bilious material. Input and output: 3116 input, output 4475. Nothing by mouth currently with right colectomy. VITAL SIGNS: Temperature 98.4, pulse 56, respiratory rate 18, blood pressure 121/77, 95% on room air. Generally, awake, alert, oriented to person and place. Answering questions appropriately. Left naris with nasogastric tube, draining brownish-maroon material. Right- sided drain is pink in color. Pupils round and reactive. Extraocular muscles are intact. No jugular venous distention (JVD) or thyromegaly. Lungs are clear to auscultation. No wheezing or rales. Postoperative abdomen with a colostomy bag. Diffusely tender. Positive bowel sounds. Extremities: No cyanosis, clubbing, or pitting edema. Heart: S1, S2, sinus rhythm. Bradycardic. LABORATORY DATA: White count 10.5, hemoglobin 10, hematocrit 32, platelet count 751. Sodium 142, potassium 3.4, chloride 102, bicarbonate 34, BUN 10, creatinine 0.56, glucose 93. ASSESSMENT AND PLAN: This is a 44-year-old male with a psoas abscess, 2- month history of abdominal pain, on chronic Suboxone. 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 IMPRESSION: 1. Obstructing descending colon, sigmoid colonic mass, status post sigmoid colectomy with colostomy, splenic flexure takedown, right colectomy ileocolic anastomosis on 06/07/2019, postoperative day #3. Currently, on intravenous (IV) fluids with antibiotics, Cipro and Flagyl. White count is decreasing. Febrile. On Toradol every 6 hours. Postoperative management per general surgery. May need total parenteral nutrition (TPN) for nutrition. Grounds Person consulted. 2. Active tobacco abuse. On nicotine patch. 3. History of chronic Suboxone use. 4. Deep venous thrombosis (DVT) prophylaxis with compression stockings. MTDD
[2019-06-09] MEDS: KCL 40MEQ IN D5/NS 1000ML 1,000 ML IV SCH ×2 (10:44→22:10)
[2019-06-09] MEDS: CIPROFLOXACIN 400 MG in IV 1 EA IV SCH ×2 (12:00→23:59)
[2019-06-09] MEDS: BUPIVACAINE/NACL BAG 250 ML EPIDURAL SCH (13:10)
[2019-06-10] VITALS (9 sets, daily range): BP systolic 105–139; BP diastolic 57–80
[2019-06-10] MEDS ORDERED: ACETAMINOPHEN TAB 650MG DOSE (2X325MG) PO ONE (02:45)
[2019-06-10] MEDS: KETOROLAC 30 MG/ML VIAL (J1885) IV SCH ×4 (03:05→21:15)
[2019-06-10 03:38] LABS: BASO % 0.1 % (0.0-1.0); EOS # 0.1 10^3/uL (0.0-0.5); EOS % 0.8 % (0.0-3.0); HEMATOCRIT 33.5 % (42.0-52.0); HEMOGLOBIN 10.5 g/dl (13.5-17.5); LYMPH # 1.6 10^3/uL (1.5-5.0); LYMPH % 11.6 % (24.0-44.0); MEAN CORPUSCULAR HEMOGLOBIN 29.2 pg (27.0-33.0); MEAN CORPUSCULAR HGB CONC 31.3 g/dl (32.0-36.5); MEAN CORPUSCULAR VOLUME 93.1 fl (80.0-96.0); MONO % 7.1 % (0.0-5.0); PLATELET COUNT, AUTOMATED 732 10^3/uL (150-450); WHITE BLOOD COUNT 13.7 10^3/uL (4.0-10.0)
[2019-06-10 04:06] LABS: BLOOD UREA NITROGEN 8 MG/DL (7-18); CARBON DIOXIDE LEVEL 37 MEQ/L (21-32); CHLORIDE LEVEL 102 MEQ/L (98-107); CREATININE FOR GFR 0.66 MG/DL (0.70-1.30); GLOMERULAR FILTRATION RATE > 60.0 (>60); GLUCOSE, FASTING 110 MG/DL (70-100); MAGNESIUM LEVEL 1.7 MG/DL (1.8-2.4); POTASSIUM SERUM 4.5 MEQ/L (3.5-5.1); SODIUM LEVEL 143 MEQ/L (136-145)
--- NOTE | 2019-06-10 04:30 | REP ---
Clinical: Rhonchi . Comparison: 05/29/2019 . Findings: Nasogastric tube courses below left hemidiaphragm. The mediastinum and cardiac silhouette are stable and within normal limits for portable technique. Trace left basilar atelectasis now identified. Impression: Trace left basilar atelectasis. Electronically Signed by Marco Coon MD 06/10/2019 04:22 A
[2019-06-10] MEDS: KCL 40MEQ IN D5/NS 1000ML 1,000 ML IV SCH ×2 (05:12→15:57)
[2019-06-10] MEDS: metroNIDAZOLE 500 MG in IV 1 EA IV SCH (05:12)
[2019-06-10] MEDS ORDERED: MAG SULF 1GM/100ML (MAG RUN) 1 GM in IV 1 EA IV ONE (09:00)
[2019-06-10] MEDS: ALVIMOPAN 12 MG CAPSULE (ENTEREG) PO SCH ×2 (09:03→21:14)
[2019-06-10] MEDS: NICOTINE 14 MG/24 HR TRANSDERMAL TD SCH (09:04)
[2019-06-10] MEDS: GASTROGRAFIN SOLUTION 30ML PO SCH ×2 (09:04→09:21)
[2019-06-10] MEDS: MORPHINE 1MG/ML IN 0.9% NACL 100ML IV BAG IV PRN ×2 (10:47→22:43)
[2019-06-10] MEDS: IMIPENEM/CILASTATIN 500 MG in D5W MINI-BAG PLUS 100 ML IV SCH ×3 (10:48→21:15)
--- NOTE | 2019-06-10 12:34 | IPN ---
DATE: 06/10/2019 Patient complains of feeling congested and he has been in IV fluids and continues epidural due to recent surgery and toxic megacolon. This morning he complains of some cough evaluated due to fever of 100.5 yesterday. Chest x-ray showed right atelectasis. Abdominal pain is improved with epidural. No nauseas or vomiting. Due to increased white count and fever, patient's antibiotic was changed to imipenem cilastatin for broader coverage. Patient is requesting for his diet to be advanced or at least some Jello. Maximum temperature (T-max) 100.5, temperature 97.9 current, pulse 77 in sinus rhythm, respiratory 20, blood pressure 107/64, 97% on room air. Nasogastric tube drainage total 3.2 liters yesterday. JOSE drain right abdomen 630 mL. Input/output yesterday is 1830 in, output 4855, -3025. Generally, patient is awake, alert, oriented times three able to answer in complete sentences. No conversational dyspnea. No cyanosis. Patient has no use of respiratory accessory muscles. Trachea is midline. Nasogastric tube with bilious brownish material noted on the left nares, actively draining copious amounts of secretions. Lungs are diminished with bilateral crackles. Fine expiratory wheezing. Heart: S1, S2 sinus rhythm. Abdomen is soft, tender in the incision site. No rebound, guarding. Positive bowel sounds. Colostomy bag with JOSE drain in the right lower abdomen. Nasogastric tube in the left nares. Extremities: No cyanosis or clubbing. White count 13.7, hemoglobin 10, hematocrit 33, platelet count 732. Sodium 143, potassium 4.5, chloride 102, bicarbonate 37, BUN 8, creatinine 0.66, glucose of 110, magnesium 1.7. Microbiology: Blood culture pending. No growth for 72 hours from 06/07/2019. Chest x-ray left basal atelectasis. ASSESSMENT/PLAN: This is a 44 -year-old male with abscess, 2-month history of abdominal pain on chronic Suboxone, presented with toxic megacolon status post right colectomy with ileocolic anastomosis, splenic flexure takedown and sigmoid colectomy with colostomy, still currently with right lower abdominal JOSE drain and nasogastric tube in left nares, kept on by mouth status. IMPRESSION: 1. Obstructing descending colon with a sigmoid colonic mass, status post sigmoid colectomy with colostomy, splenic flexure takedown and right colectomy, Ileocolic anastomosis on 06/07/2019. Postop day #4. Patient had been on intravenous Cipro and Flagyl but developed a fever of 100.5 with worsening white count to 13.5. Patient has been changed to imipenem cilastatin for better gram negative and anerobic coverage. Patient had a maximum temperature (T-max) of 100.5. He is still on Toradol as well as continue with epidural. He is still currently on IV fluids. He has been continued on Entereg. Defer to surgery for advancement of his diet. 2. Active tobacco user: Patient has a nicotine patch. History of chronic Suboxone. MTDD
[2019-06-10] MEDS ORDERED: ISOVUE-370 76% 100ML VIAL (Q9967) As Ordered ONE (13:19)
--- NOTE | 2019-06-10 14:04 | REP ---
CT of the abdomen and pelvis with IV contrast, without bowel contrast: Comparison is 06/07/2019. There is a left pleural effusion as an interval change. There is complete atelectasis of the lower lobe of the left lung as an interval change. There are midline longitudinal skin nelida in the anterior abdominal wall as an interval change. There is an anterior abdominal wall colostomy on the left as an interval change. There is pneumoperitoneum, likely postsurgical. The markedly dilated colon on the comparison study has resolved. The wall of the transverse colon is markedly thickened compatible with colitis, infectious versus inflammatory versus ischemic. There is a circumferential surgical suture line in the abdomen on the right compatible with bowel anastomosis. There is a surgical drain in the pelvis. There is a surgical drain along the left so as muscle. Pelvis: There is a Arboleda catheter in the bladder. There is no ascites. Impression: There is a left pleural effusion as an interval change. The lower lobe of the left lung is completely collapsed as an interval change. There is wall thickening of the transverse colon as an interval change compatible with colitis in the appropriate clinical setting, ischemic versus inflammatory versus infectious. The previous. We dilated colonic loops are no longer present. There is a surgical drain in the pelvis and a surgical drain along the left so as muscle. There is evidence for interval laparotomy and bowel surgery. There is a colostomy in the anterior abdominal wall on the right as an interval change. Electronically Signed by Dayton Alvarenga MD 06/10/2019 01:56 P
[2019-06-10] MEDS: BUPIVACAINE/NACL BAG 250 ML EPIDURAL SCH (15:04)
[2019-06-10] MEDS ORDERED: IPRATROPIUM 0.5MG/ALBUTEROL 2.5MG INH SOL UD 3ML (DUONEB)(J7620) NEB PRN (16:00)
[2019-06-10] MEDS: IPRATROPIUM 0.5MG/ALBUTEROL 2.5MG INH SOL UD 3ML (DUONEB)(J7620) NEB SCH ×2 (17:59→23:42)
[2019-06-10] MEDS ORDERED: FUROSEMIDE 40 MG/4 ML VIAL (J1940) IV ONE (18:15)
[2019-06-11] VITALS (7 sets, daily range): BP systolic 117–138; BP diastolic 74–84
[2019-06-11] MEDS: KETOROLAC 30 MG/ML VIAL (J1885) IV SCH ×4 (03:09→20:28)
[2019-06-11] MEDS: KCL 40MEQ IN D5/NS 1000ML 1,000 ML IV SCH ×2 (03:09→14:34)
[2019-06-11] MEDS: IMIPENEM/CILASTATIN 500 MG in D5W MINI-BAG PLUS 100 ML IV SCH ×4 (03:11→22:35)
[2019-06-11 07:15] LABS: BASO # 0.1 10^3/uL (0.0-0.2); BASO % 0.5 % (0.0-1.0); EOS # 0.2 10^3/uL (0.0-0.5); EOS % 1.4 % (0.0-3.0); HEMATOCRIT 36.1 % (42.0-52.0); HEMOGLOBIN 11.3 g/dl (13.5-17.5); LYMPH # 1.8 10^3/uL (1.5-5.0); LYMPH % 15.1 % (24.0-44.0); MEAN CORPUSCULAR HGB CONC 31.3 g/dl (32.0-36.5); MEAN CORPUSCULAR VOLUME 92.8 fl (80.0-96.0); MONO # 1.1 10^3/uL (0.0-0.8); MONO % 9.2 % (0.0-5.0); NEUTROPHILS # 8.9 10^3/uL (1.5-8.5); NEUTROPHILS % 73.1 % (36.0-66.0); PLATELET COUNT, AUTOMATED 794 10^3/uL (150-450); RED BLOOD COUNT 3.89 10^6/uL (4.30-6.10); WHITE BLOOD COUNT 12.1 10^3/uL (4.0-10.0)
[2019-06-11 07:29] LABS: BLOOD UREA NITROGEN 7 MG/DL (7-18); CALCIUM LEVEL 7.9 MG/DL (8.5-10.1); CARBON DIOXIDE LEVEL 35 MEQ/L (21-32); CHLORIDE LEVEL 104 MEQ/L (98-107); GLOMERULAR FILTRATION RATE > 60.0 (>60); GLUCOSE, FASTING 110 MG/DL (70-100); MAGNESIUM LEVEL 1.9 MG/DL (1.8-2.4); POTASSIUM SERUM 3.6 MEQ/L (3.5-5.1); SODIUM LEVEL 142 MEQ/L (136-145)
[2019-06-11] MEDS: IPRATROPIUM 0.5MG/ALBUTEROL 2.5MG INH SOL UD 3ML (DUONEB)(J7620) NEB SCH ×3 (07:48→20:00)
--- NOTE | 2019-06-11 08:11 | REP ---
Portable chest x-ray: Single view. History: Cough. Comparison chest x-ray: June 10, 2019. Findings: Nasogastric tube enters left upper quadrant of the abdomen. There is a epidural catheter noted in place. There is increased density behind the heart consistent with left lower lobe atelectasis and and small pleural effusion. There is some volume loss in the left hemithorax suggesting that the left lower lobe is collapsed. Right lung is clear. Impression: Lobar atelectasis left lower lobe. Trace of left pleural effusion. NG tube and epidural catheters again noted. Electronically Signed by Jarett Fitzgerald MD 06/11/2019 08:02 A
--- NOTE | 2019-06-11 09:03 | IPN ---
DATE: 06/09/2019 The patient has had some slow but progressive improvement. Clinically he looks better on a daily basis and his white count has come down significantly, although I am not sure if that is dilutional given the significant amount that it has dropped. But in any case he has had some significant improvement from that standpoint. His input and output show that he still having significant nasogastric (NG) output as well as significant drain output. His urine output has picked up yesterday and he starting to diurese little bit more. His weight is starting to drop but we are not back to preoperative yet. His abdomen is soft, nontender, nondistended. Ostomy bag is functioning well with some liquid stool in it. His incision is clean and dry. His drain is serous. IMPRESSION AND PLAN: The patient continues with a postoperative ileus, which given the amount of inflammatory changes, I am not surprised about this and we will have to see how he does over the ensuing 24-48 hours. He does need to be kept nothing by mouth with an NG tube in place, given the significant amount of drainage. We have allowed him to have some sips of clears. I have encouraged him to go very slowly on this, otherwise, it will be a problem with figuring out if his NG tube drainage is secondary to the amount that he is sipping on or whether it is secondary to some other etiology such as ileus, etc. and he understands.
--- NOTE | 2019-06-11 09:19 | IPN ---
DATE: 06/10/2019 Overall the patient seems to be doing better today and from his overall abdominal pain standpoint he has been getting better. He still has had a fair bit of NG tube output and he did not really tolerate his NG tube being clamped for the CAT scan that was performed earlier today. Otherwise the CAT scan did reveal some fluid, some thickening of his colon consistent with what we would expect on his edematous colon that was appreciated from when we resected it. The pathologist called me up today and has told me that the preliminary results reveals malignancy. They still have some evaluation of the lymph nodes and depth of the tumor itself. CAT scan also showed that there was no significant residual abscess where the previous drain was placed in the iliopsoas area. From a standpoint of what was noticed was a pleural effusion on the left-hand side with some atelectasis. He still states that he is coughing up some phlegm. Otherwise he is doing well with the epidural and the [employer]BASS[employer]. On his physical exam his incision was clean and dry. Ostomy is functioning and no significant drainage outside that. He still has a significant amount of serous drainage from the right JOSE drain. IMPRESSION AND PLAN: The patient has evidence of improvement/resolution of his overall operative intervention. His ostomy still seems to be putting out, still a little edematous as expected and seems to be slowly improving. His other issue is gastrointestinal (GI). He unfortunately is taking a lots of sips of water and this is being suctioned right out and it is hard to know how much output he has had, but because he did not tolerate the upper GI contrast then I do feel that it is reasonable to just to see how he is doing overnight but plan on clamping the tube in the morning and seeing if he tolerates that. If he does tolerate it then hopefully we can get the NG tube out tomorrow. Once again he is an individual that has a propensity to probably out drink his tolerance of this and would start throwing up and then would start drinking again and thus at this point I feel that we are better off to keep the NG tube in. The second issue obviously the elevated white count, I am not sure what the etiology is, we are not seeing an abscess and the transverse colon that looks a little bit thickened, I am not surprised whatsoever of this, although it is relatively decompressed at this point but it is edematous as expected from what we appreciated. Fortunately his descending colon area which also shows that it is a little bit edematous at the ostomy and this I think is reflected on what we are seeing. I can see the staple line on the right-hand side where the ileocolic anastomosis is and that looks nicely patent, I am not seeing any significant fluid or inflammatory changes around that. Thus at this point we will see how we do with progress and we will have him increase his activity today. If we can I would really like to get his NG tube out and also discontinue the Arboleda, discontinue the epidural and it is starting to get to that point where we will have to rely on some of his pain medications for this. Unfortunately that may contribute to somewhat of a prolonged ileus given his narcotic use. Also I will recheck his albumin in the morning and that may actually be contributing to his significant fluid output through his JOSE drain.
[2019-06-11] MEDS: NICOTINE 14 MG/24 HR TRANSDERMAL TD SCH (09:32)
[2019-06-11] MEDS: ALVIMOPAN 12 MG CAPSULE (ENTEREG) PO SCH ×2 (09:33→20:28)
[2019-06-11 09:37] LABS: ALBUMIN 2.1 GM/DL (3.2-5.2); ALT/SGPT 12 U/L (12-78); BILIRUBIN,TOTAL 0.3 MG/DL (0.2-1.0); TOTAL PROTEIN 5.3 GM/DL (6.4-8.2)
--- NOTE | 2019-06-11 12:50 | IPN ---
DATE: 06/11/2019 SUBJECTIVE: Patient continues to request Jello to increase his oral intake, despite being informed that he continues to have increase in output through his gastric drainage via the nasogastric tube with 2.055 liters over the past 24 hours. Prior to that, the patient continued to have 3.225 liters gastric drainage through this. JOSE drain is 440 mL overnight from previous 630 mL the previous day. The patient says that his breathing is much improved after he was given nebulizer treatments and Lasix. Chest x-ray showed atelectasis. The patient was instructed to use his incentive spirometry 10 times every hour while he is awake. The patient says that his breathing is back to baseline "I did smoke a lot before." The patient has no fever. Cough is improved. Shortness of breath (SOB) is improved. Afebrile without any complaints of chills. Lungs air entry is equal bilaterally, faint wheezing, improved from yesterday. Heart S1, S2, sinus rhythm. Abdomen is soft, slightly tender, no rebound or guarding. JOSE drain on the right. Incision is clean and dry. Ostomy has no erythema or any tenderness. Extremities no cyanosis or clubbing. White count 12, hemoglobin 11, hematocrit 36, platelet count 794. Sodium 142, potassium 3.6, chloride 104, bicarbonate 35, BUN 7, creatinine 0.6, glucose of 110, magnesium 1.9. Chest x-ray 06/11/2019 global atelectasis left lower lobe. Trace left pleural effusion. NG tube, epidural catheters again noted. ASSESSMENT/PLAN: This is a 44 -year-old male with history of psoas abscess, toxic megacolon status post right colectomy with ileocolic anastomosis, splenic flexure takedown and sigmoid colectomy with right lower abdominal JOSE drain and nasogastric tube, still nothing by mouth status. IMPRESSION: 1. Obstructing descending colon with a sigmoid colonic mass, status post sigmoid colectomy with colostomy, splenic flexure takedown and right colectomy, ileocolic anastomosis on 06/07/2019. postop day 5. Patient was previously on IV Cipro and Flagyl, but had a temperature of 100.5 with increasing white count to 13.5. Patient now is on day 2 of imipenem cilastatin for broader coverage for gram negative and anaerobes. Patient has not any temperature spike since the change in antibiotics. White count is decreasing. He is continued with an epidural and Toradol for pain control, Entereg and nothing by mouth status. Defer to surgery for either TPN or advancement of diet. Patient continues to have a significant amount of output through his nasogastric tube despite Entereg and nothing by mouth status. He still has 2 liters via nasogastric tube for the past 24 hours. 2. Active tobacco use. Nicotine patch. 3. History of chronic Suboxone use. MTDD
[2019-06-11] MEDS: MORPHINE 1MG/ML IN 0.9% NACL 100ML IV BAG IV PRN (14:36)
[2019-06-11] MEDS: BUPIVACAINE/NACL BAG 250 ML EPIDURAL SCH (14:36)
[2019-06-12 02:00] VITALS: BP 116/78
[2019-06-12] MEDS: KCL 40MEQ IN D5/NS 1000ML 1,000 ML IV SCH ×3 (02:03→13:22)
[2019-06-12] MEDS: KETOROLAC 30 MG/ML VIAL (J1885) IV SCH ×2 (02:05→08:45)
[2019-06-12] MEDS: IMIPENEM/CILASTATIN 500 MG in D5W MINI-BAG PLUS 100 ML IV SCH ×4 (04:38→22:22)
[2019-06-12] MEDS: ONDANSETRON 4MG/2ML VIAL (J2405) IV PRN ×3 (05:07→20:49)
[2019-06-12 06:00] VITALS: BP 118/79
[2019-06-12 06:27] LABS: BASO # 0.1 10^3/uL (0.0-0.2); BASO % 0.4 % (0.0-1.0); EOS # 0.2 10^3/uL (0.0-0.5); EOS % 1.9 % (0.0-3.0); HEMATOCRIT 32.7 % (42.0-52.0); HEMOGLOBIN 10.4 g/dl (13.5-17.5); LYMPH # 1.8 10^3/uL (1.5-5.0); LYMPH % 14.3 % (24.0-44.0); MEAN CORPUSCULAR HEMOGLOBIN 29.4 pg (27.0-33.0); MEAN CORPUSCULAR HGB CONC 31.8 g/dl (32.0-36.5); MEAN CORPUSCULAR VOLUME 92.4 fl (80.0-96.0); MONO % 8.2 % (0.0-5.0); NEUTROPHILS # 9.4 10^3/uL (1.5-8.5); NEUTROPHILS % 74.8 % (36.0-66.0); PLATELET COUNT, AUTOMATED 781 10^3/uL (150-450); RED BLOOD COUNT 3.54 10^6/uL (4.30-6.10); WHITE BLOOD COUNT 12.6 10^3/uL (4.0-10.0)
[2019-06-12 06:49] LABS: BLOOD UREA NITROGEN 7 MG/DL (7-18); CALCIUM LEVEL 7.8 MG/DL (8.5-10.1); CARBON DIOXIDE LEVEL 30 MEQ/L (21-32); CHLORIDE LEVEL 108 MEQ/L (98-107); CREATININE FOR GFR 0.58 MG/DL (0.70-1.30); GLOMERULAR FILTRATION RATE > 60.0 (>60); GLUCOSE, FASTING 97 MG/DL (70-100); MAGNESIUM LEVEL 1.8 MG/DL (1.8-2.4); POTASSIUM SERUM 4.1 MEQ/L (3.5-5.1); SODIUM LEVEL 143 MEQ/L (136-145)
[2019-06-12] MEDS: IPRATROPIUM 0.5MG/ALBUTEROL 2.5MG INH SOL UD 3ML (DUONEB)(J7620) NEB SCH (07:23)
[2019-06-12] MEDS ORDERED: FUROSEMIDE 20 MG/2 ML VIAL (J1940) IV ONE (07:45)
[2019-06-12] MEDS: ALVIMOPAN 12 MG CAPSULE (ENTEREG) PO SCH ×2 (08:44→20:49)
[2019-06-12] MEDS: NICOTINE 14 MG/24 HR TRANSDERMAL TD SCH (08:46)
[2019-06-12 10:00] VITALS: BP 124/84
--- NOTE | 2019-06-12 10:54 | IPN ---
DATE: 06/12/2019 Patient is clinically improved. He has not had any low grade temperatures, ambulating well according to nursing, and is tolerating his diet, which started yesterday with some broth. He did have some nausea without overt vomiting. White count has decreased, remains stable. Anxious to go home soon, but still complains of 7/10 pain when he starts to walk around at the incision site where the nelida are located. The patient has been having good output through his colostomy. He is passing gas. He remains net positive. Temperature 97.6, pulse 70, respiratory rate 18, blood pressure 118/79, 98% on room air. Generally, awake and oriented times two answering questions appropriately. Nasogastric tube has been discontinued. No jugular venous distention (JVD). No thyromegaly. Lungs diminished bibasilar crackles. Fine expiratory wheezing. Abdomen: [place] clean and dry, no significant erythema, some tenderness on deep palpation, but no fluid collection or drainage. JOSE drain intact. Colostomy bag draining. Extremities no cyanosis or clubbing. LABORATORY DATA: White count 12.6, hemoglobin 10, hematocrit 32, platelet count 781, sodium 143, potassium 4.1, chloride 108, bicarb 30, BUN 7, creatinine 0.58, glucose of 97, magnesium of 1.8. Blood cultures are negative. 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 White count is down to 12.6, has had no fever, doing well. NG tube has been discontinued. Patient has been advanced on his diet. He is ambulating well. Defer to surgery for discharge and will most likely deescalate antibiotics soon. Still on Entereg, tolerating his diet well. Active tobacco abuse. Has needed nebulizers and nicotine patch. History of chronic Suboxone use. MTDD
--- NOTE | 2019-06-12 11:07 | IPN ---
DATE: 06/12/2019 Overall the patient has been afebrile overnight and his white count is staying about the same as 12. However, he is overall feeling better each day. He is not having any significant nausea or vomiting. He does feel a little bit more full but has had a significant amount of stool out of his ostomy as well as air. His maximum temperature (Tmax) is 99. His urine output has been very good and he has had a significant amount of fluid in already today. He has had about 700 mL. His input yesterday was 2 liters of oral intake. On his physical exam, lungs are clear anteriorly. Abdomen is softly distended, nontender except at the incision. His incision is clean and dry. No erythema, drainage or discharge is appreciated. His Anderson-Wright (J-P) drain is less than it was but still has a fair bit of serous drainage. His JOSE on the left-hand side is minimal. IMPRESSION/PLAN: 1. He is tolerating clear liquid diet. We will keep him on clears right now just because he is feeling some distension this morning and will see how he does over the day, probably start him on some food tomorrow. 2. Infectious etiology. I am not sure exactly what is going on with this or if it is just inflammatory. I agree with continuing him on antibiotics at this time. 3. Still has some fluid space/third spacing suggesting that he still has some edema in his mesentery, etc. which may contribute to some of his abdominal distension issues and will keep his drainage tube in on the right-hand side, although we do have a slight decrease over the last 3 days of the total amount. In any case, we will await the pathology results and discuss with the patient.
[2019-06-12] MEDS: BUPIVACAINE/NACL BAG 250 ML EPIDURAL SCH (13:00)
[2019-06-12 14:00] VITALS: BP 120/84
[2019-06-12 18:00] VITALS: BP 131/88
[2019-06-12] MEDS: PERCOCET 5MG/325MG TAB PO PRN (20:50)
[2019-06-12 22:00] VITALS: BP 127/86
[2019-06-12] MEDS: MORPHINE 10 MG/ML 1ML VIAL (J2270) IV PRN (22:28)
[2019-06-13] MEDS: KCL 40MEQ IN D5/NS 1000ML 1,000 ML IV SCH ×2 (00:55→13:37)
[2019-06-13] MEDS: PERCOCET 5MG/325MG TAB PO PRN ×5 (00:55→20:34)
[2019-06-13] MEDS: MORPHINE 10 MG/ML 1ML VIAL (J2270) IV PRN ×6 (01:55→21:34)
[2019-06-13 02:00] VITALS: BP 129/71
[2019-06-13] MEDS: IMIPENEM/CILASTATIN 500 MG in D5W MINI-BAG PLUS 100 ML IV SCH ×4 (04:32→22:56)
[2019-06-13 06:00] VITALS: BP 126/80
[2019-06-13 06:18] LABS: BASO % 0.3 % (0.0-1.0); EOS # 0.1 10^3/uL (0.0-0.5); EOS % 0.7 % (0.0-3.0); HEMATOCRIT 32.6 % (42.0-52.0); HEMOGLOBIN 10.3 g/dl (13.5-17.5); LYMPH # 1.1 10^3/uL (1.5-5.0); LYMPH % 9.7 % (24.0-44.0); MEAN CORPUSCULAR HEMOGLOBIN 29.1 pg (27.0-33.0); MEAN CORPUSCULAR HGB CONC 31.6 g/dl (32.0-36.5); MEAN CORPUSCULAR VOLUME 92.1 fl (80.0-96.0); MONO # 1.1 10^3/uL (0.0-0.8); MONO % 9.3 % (0.0-5.0); NEUTROPHILS # 9.2 10^3/uL (1.5-8.5); NEUTROPHILS % 79.5 % (36.0-66.0); PLATELET COUNT, AUTOMATED 710 10^3/uL (150-450); RED BLOOD COUNT 3.54 10^6/uL (4.30-6.10); WHITE BLOOD COUNT 11.6 10^3/uL (4.0-10.0)
[2019-06-13 06:36] LABS: BLOOD UREA NITROGEN 8 MG/DL (7-18); CALCIUM LEVEL 7.5 MG/DL (8.5-10.1); CARBON DIOXIDE LEVEL 28 MEQ/L (21-32); CHLORIDE LEVEL 104 MEQ/L (98-107); GLOMERULAR FILTRATION RATE > 60.0 (>60); GLUCOSE, FASTING 112 MG/DL (70-100); MAGNESIUM LEVEL 1.6 MG/DL (1.8-2.4); POTASSIUM SERUM 4.2 MEQ/L (3.5-5.1); SODIUM LEVEL 136 MEQ/L (136-145)
[2019-06-13] MEDS ORDERED: MAG SULF 1GM/100ML (MAG RUN) 1 GM in IV 1 EA IV ONE (07:15)
[2019-06-13] MEDS: ALVIMOPAN 12 MG CAPSULE (ENTEREG) PO SCH ×2 (08:36→20:34)
[2019-06-13] MEDS: NICOTINE 14 MG/24 HR TRANSDERMAL TD SCH (08:37)
[2019-06-13 10:00] VITALS: BP 124/80
[2019-06-13] MEDS: oxyCODONE 20 MG CR TAB PO SCH ×2 (10:16→20:34)
--- NOTE | 2019-06-13 10:50 | IPN ---
DATE: 06/13/2019 He seems to be doing well overnight. No other significant complaints. His pain control has been adequate. Unfortunately, he will get relative pain relief, but resolution of his pain should not be completely expected. It would be a desire, but be unlikely given his chronic narcotic use, etc. Thus, at this point, I have also discussed this at length with him as well as his pathology findings and the results. He has been afebrile and his white count is slowly coming down. His drain on the left-hand side has been putting out very minimal for several days and is essentially the irrigation that is put in and his right side drain significantly dropped off yesterday and today has been putting out minimal. His abdomen is soft and benign appearing otherwise. IMPRESSION AND PLAN: The patient is making some good improvement. His midline incision looks fine. He does not need a dressing for this, although he just wants it for comfort. He has two drains in that I removed today. At this point, it is a matter of just progressing his diet, and if he does well with his diet and he learns to take care of his ostomy he could probably be discharged home early next week.
--- NOTE | 2019-06-13 11:28 | IPN ---
DATE: 06/13/2019 Patient was in significant pain yesterday, 12/14. The IV epidural was discontinued. Patient was tolerating his diet without any vomiting and did have episodes of nausea but kept his food down. He is ambulating well. No dizziness, lightheadedness. No fever or chills. Patient is wheezing this morning and was open to getting a breathing treatment. Otherwise, no significant shortness of breath. No paroxysmal nocturnal dyspnea orthopnea. No lower extremity edema. Temperature 98.8, pulse 67, respiratory rate 19, blood pressure 124/80, 97% on room air. Generally, patient is awake, alert, oriented to person, place and time, answering questions appropriately. Lungs are diminished with faint wheezing. Heart: S1, S2 sinus rhythm. Abdomen is soft, slightly tender. Surgical area clean and dry. There is no purulence. No serous drainage. JOSE drain in place. Extremities: No cyanosis, clubbing or pitting edema. White count 11, hemoglobin 10, hematocrit 32, platelet count 710. Sodium 136, potassium 4.2, chloride 104, bicarbonate 28, BUN 8, creatinine 0.5, glucose 112, magnesium 1.6. ASSESSMENT/PLAN: This is a 44-year-old male status post psoas abscess megacolon, status post sigmoid colectomy with colostomy, splenic flexure takedown, right colectomy ileocolic anastomosis on 06/07/2019, postop day #7. Was previously on IV Cipro and Flagyl, temp 100.5 with white count 13,000. With IV Cipro and Flagyl discontinued now on day #4, imipenem cilastatin for better coverage. Gram negative and anaerobics. The patient has been afebrile. White count has decreased. He has been advanced on his diet, ambulating well and pain is slightly better controlled today. Patient is doing well clinically and has been supplemented for hypomagnesemia with magnesium. DISPOSITION: Deferred to surgery. Patient may be kept over the weekend. He will need home care referral for Sunday for his colostomy. [facility]
[2019-06-13 14:00] VITALS: BP 121/80
[2019-06-13] MEDS: ONDANSETRON 4MG/2ML VIAL (J2405) IV PRN (14:18)
[2019-06-13] MEDS ORDERED: KETOROLAC 30 MG/ML VIAL (J1885) IV ONE (18:00)
[2019-06-13 22:00] VITALS: BP 124/81
[2019-06-14] MEDS: PERCOCET 5MG/325MG TAB PO PRN ×6 (00:39→23:26)
[2019-06-14] MEDS: KCL 40MEQ IN D5/NS 1000ML 1,000 ML IV SCH ×3 (01:45→18:00)
[2019-06-14] MEDS: MORPHINE 10 MG/ML 1ML VIAL (J2270) IV PRN ×6 (01:47→22:42)
[2019-06-14 02:00] VITALS: BP 120/80
[2019-06-14] MEDS: IMIPENEM/CILASTATIN 500 MG in D5W MINI-BAG PLUS 100 ML IV SCH ×4 (04:45→22:43)
[2019-06-14 06:00] VITALS: BP 120/78
[2019-06-14 06:49] LABS: BASO % 0.3 % (0.0-1.0); EOS % 0.4 % (0.0-3.0); HEMATOCRIT 29.5 % (42.0-52.0); HEMOGLOBIN 9.8 g/dl (13.5-17.5); LYMPH # 0.8 10^3/uL (1.5-5.0); LYMPH % 8.2 % (24.0-44.0); MEAN CORPUSCULAR HEMOGLOBIN 29.9 pg (27.0-33.0); MEAN CORPUSCULAR HGB CONC 33.2 g/dl (32.0-36.5); MEAN CORPUSCULAR VOLUME 89.9 fl (80.0-96.0); MONO # 1.3 10^3/uL (0.0-0.8); MONO % 12.6 % (0.0-5.0); NEUTROPHILS % 78.2 % (36.0-66.0); PLATELET COUNT, AUTOMATED 657 10^3/uL (150-450); RED BLOOD COUNT 3.28 10^6/uL (4.30-6.10); WHITE BLOOD COUNT 10.3 10^3/uL (4.0-10.0)
[2019-06-14 07:04] LABS: BLOOD UREA NITROGEN 15 MG/DL (7-18); CALCIUM LEVEL 7.5 MG/DL (8.5-10.1); CARBON DIOXIDE LEVEL 26 MEQ/L (21-32); CHLORIDE LEVEL 103 MEQ/L (98-107); GLOMERULAR FILTRATION RATE > 60.0 (>60); GLUCOSE, FASTING 112 MG/DL (70-100); MAGNESIUM LEVEL 1.7 MG/DL (1.8-2.4); POTASSIUM SERUM 4.5 MEQ/L (3.5-5.1); SODIUM LEVEL 135 MEQ/L (136-145)
[2019-06-14] MEDS ORDERED: MAG SULF 1GM/100ML (MAG RUN) 1 GM in IV 1 EA IV ONE (08:30)
[2019-06-14] MEDS: oxyCODONE 20 MG CR TAB PO SCH ×2 (08:42→20:05)
[2019-06-14] MEDS: ALVIMOPAN 12 MG CAPSULE (ENTEREG) PO SCH (08:42)
[2019-06-14] MEDS: NICOTINE 14 MG/24 HR TRANSDERMAL TD SCH (08:43)
[2019-06-14 10:00] VITALS: BP 124/79
[2019-06-14] MEDS: CelecoXIB (CeleBREX) 100 MG CAP PO SCH ×2 (11:25→20:05)
[2019-06-14 14:00] VITALS: BP 122/79
[2019-06-14] MEDS: ONDANSETRON 4MG/2ML VIAL (J2405) IV PRN (17:40)
--- NOTE | 2019-06-14 18:59 | IPN ---
DATE: 06/14/2019 The patient complains of severe pain, currently on Celebrex 200 mg twice a day and morphine 10 mg every 4 hours, along with OxyContin 20 mg twice a day and Percocet two tablets every 4 hours. The patient has been afebrile, tolerating his diet, ambulating well. Discharge plans are for Sunday. White count is decreased to 10.3, magnesium is low at 1.7, which has been supplemented. The patient denies any nausea or vomiting. Tolerating diet well. He complains of 10 out of 10 pain at the surgical site. Nasogastric tube has been removed. The patient's Anderson Wright drain yielded 15 mL overnight. PHYSICAL EXAMINATION: VITAL SIGNS: Temperature 98.2, pulse 79, respiratory rate 16, blood pressure 124/70, 94% on room air. GENERAL: The patient is awake, alert, oriented times three. Answers questions appropriately. Cachectic appearing. No jugular venous distention (JVD). No thyromegaly. LUNGS: Diminished but clear to auscultation. No wheezing or rales. HEART: S1, S2. Sinus rhythm. ABDOMEN: Soft. Post surgical changes, incision is clean, dry and no serous drainage. No rebound or guarding. Positive bowel sounds times four quadrants. EXTREMITIES: No cyanosis, clubbing or pitting edema. LABORATORY DATA: White count 10, hemoglobin 9.8, hematocrit 29, platelet count 657. Sodium 135, potassium 4.5, chloride 103, bicarbonate 26, BUN 15, creatinine 0.5, glucose 112, calcium 7.5, magnesium 1.7. Blood culture negative after 72 hours. ASSESSMENT AND PLAN: This is a 44-year-old male status post psoas abscess, lisandro colon, status post sigmoid colectomy with colostomy, splenic flexure takedown, right colectomy, ileocolic anastomosis on 06/07/2019, postoperative day #8, was previously on Cipro, Flagyl with maximum temperature (t-max) 100.5[place] [id number]. Discontinuation of Cipro and Flagyl and started on imipenem cilastatin, day #5, for better coverage. Repeat CT of the abdomen and pelvis was negative. The patient has been afebrile. White count is decreased. He is tolerating his diet well. Despite complaints of abdominal pain, the patient is doing well clinically with episodes of electrolyte imbalance. Electrolyte abnormalities have been supplemented. Defer to surgery for pain issues. Discharge plan for Sunday with home care referral. [facility]
[2019-06-14 22:00] VITALS: BP 121/78
[2019-06-15 02:00] VITALS: BP 120/78
[2019-06-15] MEDS: IMIPENEM/CILASTATIN 500 MG in D5W MINI-BAG PLUS 100 ML IV SCH ×4 (03:00→21:22)
[2019-06-15] MEDS: MORPHINE 10 MG/ML 1ML VIAL (J2270) IV PRN ×5 (03:00→20:24)
[2019-06-15] MEDS: PERCOCET 5MG/325MG TAB PO PRN ×4 (03:42→18:31)
[2019-06-15] MEDS: KCL 40MEQ IN D5/NS 1000ML 1,000 ML IV SCH ×3 (04:00→20:24)
[2019-06-15 06:00] VITALS: BP 124/76
[2019-06-15 07:14] LABS: BASO % 0.2 % (0.0-1.0); EOS # 0.1 10^3/uL (0.0-0.5); EOS % 0.9 % (0.0-3.0); HEMATOCRIT 29.7 % (42.0-52.0); HEMOGLOBIN 9.7 g/dl (13.5-17.5); LYMPH # 1.4 10^3/uL (1.5-5.0); MEAN CORPUSCULAR HEMOGLOBIN 29.4 pg (27.0-33.0); MEAN CORPUSCULAR HGB CONC 32.7 g/dl (32.0-36.5); MONO # 1.2 10^3/uL (0.0-0.8); MONO % 13.6 % (0.0-5.0); PLATELET COUNT, AUTOMATED 623 10^3/uL (150-450); WHITE BLOOD COUNT 8.7 10^3/uL (4.0-10.0)
[2019-06-15 07:39] LABS: BLOOD UREA NITROGEN 8 MG/DL (7-18); CARBON DIOXIDE LEVEL 27 MEQ/L (21-32); CHLORIDE LEVEL 104 MEQ/L (98-107); CREATININE FOR GFR 0.48 MG/DL (0.70-1.30); GLOMERULAR FILTRATION RATE > 60.0 (>60); GLUCOSE, FASTING 89 MG/DL (70-100); MAGNESIUM LEVEL 1.7 MG/DL (1.8-2.4); POTASSIUM SERUM 4.1 MEQ/L (3.5-5.1); SODIUM LEVEL 135 MEQ/L (136-145)
[2019-06-15] MEDS: CelecoXIB (CeleBREX) 100 MG CAP PO SCH ×2 (09:35→21:22)
[2019-06-15] MEDS: oxyCODONE 20 MG CR TAB PO SCH ×2 (09:36→21:22)
[2019-06-15] MEDS: NICOTINE 14 MG/24 HR TRANSDERMAL TD SCH (09:39)
[2019-06-15 10:00] VITALS: BP 127/79
[2019-06-15] MEDS: ONDANSETRON 4MG/2ML VIAL (J2405) IV PRN (12:46)
[2019-06-15] MEDS ORDERED: KETOROLAC 30 MG/ML VIAL (J1885) IV ONE (15:00)
[2019-06-15] MEDS ORDERED: ACETAMINOPHEN *IV* 1,000 MG in IV 1 EA IV ONE (15:30)
[2019-06-15 18:00] VITALS: BP 101/69
[2019-06-15] MEDS ORDERED: oxyCODONE 5MG TAB PO PRN (20:00)
--- NOTE | 2019-06-15 20:34 | IPN ---
DATE: 06/15/2019 According to the patient, since the JOSE drain had been discontinued, he was okay yesterday but today felt stabbing pain, like a pencil into the right lower quadrant, lasting for several hours, not alleviated by the OxyContin 20 mg twice a day, Percocet two tablets every 4 hours, as well as intravenous morphine. The patient was given intravenous Toradol and intravenous acetaminophen. Currently says that his pain is under control. He has no nausea or vomiting. He has tolerated his diet well. He says that yesterday he had overflow of his colostomy bag and he had to ask for help. He has had no fever or chills overnight. No nausea or vomiting. Tolerating his diet otherwise. PHYSICAL EXAMINATION: VITAL SIGNS: Temperature 97.2, pulse 90, respiratory rate 18, blood pressure 127/79, 98% on room air. GENERAL: The patient is awake, alert, oriented, anicteric, no jaundice. LUNGS: Clear to auscultation. No wheezing, rales. HEART: S1, S2. Sinus rhythm. ABDOMEN: The patient has stable in the mid abdomen, well healed. No serous drainage. The patient has no significant erythema. Right sided JOSE drain site slightly tender but no rebound or guarding. Positive bowel sounds times four quadrants. EXTREMITIES: No cyanosis, clubbing or any pitting edema. LABORATORY DATA: White count 8.7, hemoglobin 9.7, hematocrit 29, platelets 123. Sodium 135, potassium 4.1, chloride 104, bicarbonate 27, BUN 8, creatinine 0.48, glucose 89, magnesium 1.7. Blood cultures negative on 06/10/2019 and 06/07/2019. ASSESSMENT AND PLAN: This is a 44-year-old male status post psoas abscess, lisandro colon, status post sigmoid colectomy with colostomy, splenic flexure takedown, right colectomy, ileocolic anastomosis on 06/07/2019, postoperative day #9. Currently on intravenous imipenem, cilastatin, day #6. Completed 8 days of Cipro and Flagyl previously. White count is now normal. He is afebrile. He complains of pain at the JOSE site, has been given IV Toradol and IV acetaminophen with as needed morphine every 4 hours. Pain management has been deferred to surgery. Per Dr. Crain, the patient is to be continued on lower dose of morphine 5 mg every 4 hours and continue with Percocet and OxyContin. Discharge plans in the morning. MTDD
[2019-06-15 22:00] VITALS: BP 112/70
--- NOTE | 2019-06-15 22:50 | REPVR ---
PROCEDURE INFORMATION: Exam: CT Abdomen And Pelvis Without Contrast Exam date and time: 06/15/2019 9:45 PM Age: 44 years old Clinical indication: Fever; Abdominal pain; Generalized; Additional info: Abdominal pain, fever TECHNIQUE: Imaging protocol: Computed tomography of the abdomen and pelvis without contrast. Radiation optimization: All CT scans at this facility use at least one of these dose optimization techniques: automated exposure control; mA and/or kV adjustment per patient size (includes targeted exams where dose is matched to clinical indication); or iterative reconstruction. COMPARISON: CT ABD PELVIS WITH CONTRAST 06/10/2019 1:27 PM FINDINGS: Tubes, catheters and devices: Previously demonstrated drainage catheter draining a left psoas abscess is no longer present. Lungs: Branching opacity right lung base likely represents inspissated mucus within dilated airways. Finding new in comparison to 06/10/2019. Resolving atelectasis left lung base. Previously demonstrated left pleural effusion no longer present. Liver: Normal. No mass. Gallbladder and bile ducts: Normal. No calcified stones. No ductal dilation. Pancreas: Normal. No ductal dilation. Spleen: Normal. No splenomegaly. Adrenals: Normal. No mass. Kidneys and ureters: Normal. No hydronephrosis. Stomach and bowel: Bowel sutures in the right upper quadrant and left flank, both appear to be located within segments of the colon. Left-sided colostomy demonstrated. Dilated transverse colon measures 6 cm in diameter containing fluid and feces. Remainder of the colon appears collapsed. Evaluation of the bowel is limited by lack of oral contrast media. Appendix: No evidence of appendicitis. Intraperitoneal space: Pneumoperitoneum slightly decreased in comparison to the prior study. There is a small amount of free intraperitoneal fluid present. Vasculature: Unremarkable. No abdominal aortic aneurysm. Lymph nodes: Unremarkable. No enlarged lymph nodes. Bladder: Unremarkable as visualized. Reproductive: Unremarkable as visualized. Bones/joints: Unremarkable. No acute fracture. Soft tissues: There is soft tissue edema demonstrated in the abdominal wall, flanks and buttock regions consistent with anasarca. IMPRESSION: 1. Anasarca. 2. Pneumoperitoneum slightly decreased in comparison to the prior study. 3. There is a small amount of free intraperitoneal fluid present. 4. Dilated transverse colon measures 6 cm in diameter containing fluid and feces. Remainder of the colon appears collapsed. Electronically signed by: Fidel Escoto On 06/15/2019 22:50:28 PM
[2019-06-16] MEDS ORDERED: ACETAMINOPHEN TAB 650MG DOSE (2X325MG) PO ONE (00:30)
[2019-06-16] MEDS: MORPHINE 10 MG/ML 1ML VIAL (J2270) IV PRN ×6 (00:40→21:39)
[2019-06-16] MEDS ORDERED: MORPHINE 2 MG/ML 1ML VIAL (J2270) IV ONE (01:45)
[2019-06-16] MEDS ORDERED: GABAPENTIN 100 MG CAP PO ONE (01:45)
[2019-06-16 02:00] VITALS: BP 108/72
[2019-06-16] MEDS: RAMELTEON 8 MG TAB (ROZEREM) PO SCH (02:34)
[2019-06-16] MEDS: IMIPENEM/CILASTATIN 500 MG in D5W MINI-BAG PLUS 100 ML IV SCH ×4 (03:08→21:38)
[2019-06-16 05:58] LABS: HEMATOCRIT 31.1 % (42.0-52.0); MEAN CORPUSCULAR HEMOGLOBIN 29.2 pg (27.0-33.0); MEAN CORPUSCULAR HGB CONC 32.2 g/dl (32.0-36.5); MEAN CORPUSCULAR VOLUME 90.7 fl (80.0-96.0); RED BLOOD COUNT 3.43 10^6/uL (4.30-6.10)
[2019-06-16 06:00] VITALS: BP 104/78
[2019-06-16 06:07] LABS: PLATELET COUNT, AUTOMATED 712 10^3/uL (150-450); WHITE BLOOD COUNT 34.8 10^3/uL (4.0-10.0)
[2019-06-16 06:22] LABS: BLOOD UREA NITROGEN 12 MG/DL (7-18); CALCIUM LEVEL 8.4 MG/DL (8.5-10.1); CARBON DIOXIDE LEVEL 27 MEQ/L (21-32); CHLORIDE LEVEL 102 MEQ/L (98-107); CREATININE FOR GFR 0.54 MG/DL (0.70-1.30); GLOMERULAR FILTRATION RATE > 60.0 (>60); GLUCOSE, FASTING 113 MG/DL (70-100); POTASSIUM SERUM 4.7 MEQ/L (3.5-5.1); SODIUM LEVEL 134 MEQ/L (136-145)
[2019-06-16] MEDS: KCL 40MEQ IN D5/NS 1000ML 1,000 ML IV SCH ×2 (06:30→15:57)
[2019-06-16 06:44] LABS: ANISOCYTOSIS 1+; LYMPHOCYTES 3 % (16-44); MONOCYTES 4 % (0-5); NEUTROPHILS 93 % (28-66); PLATELET ESTIMATE INCREASED (NORMAL)
[2019-06-16 06:57] LABS: ERYTHROCYTE SEDIMENTATION RATE 60 mm/hr (0-15)
[2019-06-16] MEDS: NICOTINE 14 MG/24 HR TRANSDERMAL TD SCH (09:00)
[2019-06-16] MEDS: CelecoXIB (CeleBREX) 100 MG CAP PO SCH ×2 (09:25→21:37)
[2019-06-16] MEDS: oxyCODONE 20 MG CR TAB PO SCH ×2 (09:26→23:08)
[2019-06-16 10:00] VITALS: BP 110/69
[2019-06-16 10:04] LABS: C REACTIVE PROTEIN QUANTITATIV 16.5 MG/DL (0.00-0.30)
--- NOTE | 2019-06-16 10:28 | REP ---
Clinical: Cough. Technique: Axial noncontrast images from the thoracic inlet to the upper abdomen with coronal and sagittal re-formations. Findings: Small areas of consolidation are identified in the bilateral lower lobes (left greater than right) along with trace left basilar atelectasis. Mucous plugging in the lower lobe distal bronchi noted. Findings compatible with early multifocal pneumonia and correlation is recommended. No effusion. No pneumothorax. No obvious adenopathy. No evidence for cardiomegaly. Musculoskeletal structures are intact. Limited upper abdomen demonstrates ascites. Impression: Bibasilar opacities suggest early pneumonia subtle increased plugging to the distal bronchi . Electronically Signed by Marco Coon MD 06/16/2019 10:20 A
[2019-06-16] MEDS ORDERED: VANCOMYCIN HCL 1,000 MG, VIAL MATE ADAPTER 1 EACH in D5W 250 ML IV ONE (11:00)
[2019-06-16] MEDS ORDERED: KETOROLAC 30 MG/ML VIAL (J1885) IV ONE (11:00)
[2019-06-16] MEDS ORDERED: HYDROMORPHONE HCL 0.5 MG/ 0.5 ML SYRINGE (J1170 PER 1) IV ONE (11:00)
[2019-06-16 11:26] LABS: ACETAMINOPHEN LEVEL 6.7 UG/ML (10.0-30.0)
[2019-06-16] MEDS: LEVALBUTEROL 1.25 MG/0.5 ML CONCENTRATE NEB INH SCH ×3 (12:00→18:37)
--- NOTE | 2019-06-16 13:45 | IPN ---
DATE: 06/16/2019 Overnight the patient had a 101.0 temperature. Complains of cough, shortness of breath. The patient finds it difficult with increasing pain in the right lower quadrant where the Anderson-Wright (J-P) drain was located and when he tries to cough has a stabbing pain that last for several hours. The patient has a dry cough without any sputum production. Repeat CT abdomen and pelvis was unremarkable with no abscess formation. He had a spike in temperature to 101 with white count of 34.8. CT chest shows early pneumonia with bibasilar opacities. The patient is started on vancomycin, continued on imipenem/cilastatin. Sputum, respiratory panel, MRSA have been ordered. The patient's discharge has been postponed due to new findings of bibasilar pneumonia. IMPRESSION: 1. Healthcare-associated pneumonia, currently on IV vancomycin, awaiting MRSA screen, sputum culture, urine legionella, urine streptococcal antigen, respiratory panel, sedimentation rate, C-reactive protein (CRP) and procalcitonin. The patient has been on imipenem/cilastatin which will have good coverage for gram-negative infection. Vancomycin has been added for MRSA. Await culture results and await defervescence improvement in white count prior to planning for hospital discharge. PHYSICAL EXAMINATION: Temperature 98.6, pulse 80, respiratory rate 16, blood pressure 110/69, 97% on room air. Generally, patient appears his stated age, cachectic appearing, bitemporal wasting. No jugular venous distention (JVD) or thyromegaly. No cervical lymphadenopathy. Bibasilar crackles. Air entry is equal. Heart: S1, S2, sinus rhythm. No murmurs, rubs or gallops. Abdomen: Soft. Midline incision appears clean with nelida. No erythema. Tenderness in the right lower quadrant where the J-P drain had been located. No rebound or guarding. Positive bowel sounds. Left-sided colostomy appears clean with stool. No erythema or tenderness at the colostomy site. Extremities: No cyanosis, clubbing or any pitting edema. LABORATORY DATA: White count 34.8, hemoglobin 10, hematocrit 31, platelet count 712. Sodium 134, potassium 4.7, chloride 102, bicarbonate 27, BUN 12, creatinine 0.54, glucose 113, lactic acid 1.2, C-reactive protein 16.5. Blood cultures negative. CT chest new early pneumonia, bibasilar opacities. CT abdomen and pelvis anasarca, pneumoperitoneum slightly increased compared to comparison study, small amount of free intraperitoneal fluid, left dilated transverse colon measures 6 cm in diameter containing fluid and feces, remainder of the colon appears collapsed. ASSESSMENT AND PLAN: This is a 44-year-old male with a psoas abscess, status post sigmoid colectomy with colostomy, splenic flexure takedown, right colectomy, ileocolic anastomosis on 06/07/2019 postoperative day #10, previously on IV Cipro and Flagyl developed a fever, changed to IV imipenem/cilastatin with improvement in white count remained afebrile and has been managed postoperatively for pain control. The patient suddenly developed a fever of 101, new findings of bibasilar opacities on CT chest. Vancomycin has been added for presumed healthcare-associated pneumonia. Currently on IV vancomycin. Continued on IV imipenem/cilastatin. Discharge has been postponed due to new findings of healthcare-associated pneumonia. Polysubstance abuse in the past on chronic Suboxone. Currently on celecoxib, morphine, OxyContin for pain control managed by surgery. MTDD
[2019-06-16 14:00] VITALS: BP 105/72
[2019-06-16] MEDS: ONDANSETRON 4MG/2ML VIAL (J2405) IV PRN (15:56)
[2019-06-16 17:07] LABS: CLOSTRIDIUM DIFFICILE PCR POSITIVE (NEGATIVE)
[2019-06-16 18:00] VITALS: BP 101/63
[2019-06-16] MEDS: VANCOMYCIN HCL 500 MG in D5W MINI-BAG PLUS 100 ML IV SCH (19:46)
[2019-06-16 22:00] VITALS: BP 105/65
[2019-06-17] MEDS: MORPHINE 10 MG/ML 1ML VIAL (J2270) IV PRN (01:47)
[2019-06-17 02:11] VITALS: BP 106/69
[2019-06-17] MEDS ORDERED: KETOROLAC 30 MG/ML VIAL (J1885) IV ONE (03:00)
[2019-06-17] MEDS: RAMELTEON 8 MG TAB (ROZEREM) PO SCH ×2 (03:05→21:00)
[2019-06-17] MEDS: VANCOMYCIN HCL 500 MG in D5W MINI-BAG PLUS 100 ML IV SCH (03:06)
[2019-06-17] MEDS: IMIPENEM/CILASTATIN 500 MG in D5W MINI-BAG PLUS 100 ML IV SCH (04:47)
[2019-06-17 06:00] VITALS: BP 103/68
[2019-06-17 06:54] LABS: BASO % 0.1 % (0.0-1.0); HEMATOCRIT 25.8 % (42.0-52.0); HEMOGLOBIN 8.6 g/dl (13.5-17.5); LYMPH # 0.9 10^3/uL (1.5-5.0); LYMPH % 2.7 % (24.0-44.0); MEAN CORPUSCULAR HEMOGLOBIN 29.8 pg (27.0-33.0); MEAN CORPUSCULAR HGB CONC 33.3 g/dl (32.0-36.5); MEAN CORPUSCULAR VOLUME 89.3 fl (80.0-96.0); MONO # 0.8 10^3/uL (0.0-0.8); MONO % 2.7 % (0.0-5.0); PLATELET COUNT, AUTOMATED 606 10^3/uL (150-450); RED BLOOD COUNT 2.89 10^6/uL (4.30-6.10)
[2019-06-17 07:17] LABS: NEUTROPHILS # 29.6 10^3/uL (1.5-8.5); WHITE BLOOD COUNT 31.4 10^3/uL (4.0-10.0)
[2019-06-17 07:18] LABS: BLOOD UREA NITROGEN 12 MG/DL (7-18); CALCIUM LEVEL 8.5 MG/DL (8.5-10.1); CARBON DIOXIDE LEVEL 27 MEQ/L (21-32); CHLORIDE LEVEL 98 MEQ/L (98-107); CREATININE FOR GFR 0.45 MG/DL (0.70-1.30); GLOMERULAR FILTRATION RATE > 60.0 (>60); GLUCOSE, FASTING 99 MG/DL (70-100); POTASSIUM SERUM 3.9 MEQ/L (3.5-5.1); SODIUM LEVEL 133 MEQ/L (136-145)
[2019-06-17] MEDS: LEVALBUTEROL 1.25 MG/0.5 ML CONCENTRATE NEB INH SCH ×2 (07:56→11:32)
--- NOTE | 2019-06-17 08:04 | IPN ---
DATE: 06/16/2019 Events of the night have been noted and specifically his increased white count of undetermined etiology. He states his pain is about the same as it was beforehand and it is extremely hard to determine what is going on from a pain standpoint given his chronic pain medication. He watches the clock and essentially when the timer hits he calls for his next dose of medication. He does that with each one of his medications. He states that the pretty much none of the medications have really helped, or they will help for a few minutes and then it goes away, and this has been going on since he had his epidural removed. In any case, he has been afebrile. His intake and output are little bit more difficult to assess given that he has been emptying his bag on his own, has been urinating without recording amounts. His vital signs have been stable. He has been afebrile. Blood pressures has been fine, not tachycardic. On his physical exam his abdomen is soft, it is nontender and overall his incision looks great. His ostomy is functioning nicely, has some soft stool in the bag, but otherwise incisions are looking good. IMPRESSION AND PLAN: Patient has an elevated white count and given his overall appearance, which looks really pretty good at this point, it is suggestive of some other etiology for this and I do feel that it is reasonable from a surgical standpoint to questions C. difficile as a possibility given that he is really not complaining of any other issues. Thus, we will order a C. difficile and will continue to support the medicine service as needed for this.
[2019-06-17] MEDS: CelecoXIB (CeleBREX) 100 MG CAP PO SCH ×2 (08:55→21:09)
[2019-06-17] MEDS: oxyCODONE 20 MG CR TAB PO SCH (08:55)
[2019-06-17] MEDS: NICOTINE 14 MG/24 HR TRANSDERMAL TD SCH (08:55)
[2019-06-17] MEDS: KCL 40MEQ IN D5/NS 1000ML 1,000 ML IV SCH ×2 (08:55→17:18)
[2019-06-17 10:00] VITALS: BP 106/66
[2019-06-17] MEDS ORDERED: metroNIDAZOLE (FLAGYL) 500 MG TAB PO SCH (10:00)
[2019-06-17] MEDS: VANCOMYCIN ORAL SOL 250MG/5ML ORAL SYRINGE PO SCH ×2 (12:57→17:17)
[2019-06-17] MEDS: ACETAMINOPHEN 650MG ER TAB (TYLENOL ARTHRITIS) PO PRN ×2 (13:01→21:09)
[2019-06-17 14:00] VITALS: BP 100/64
--- NOTE | 2019-06-17 14:36 | IPNPDOC ---
Subjective Date Seen The patient was seen on 06/17/19. Subjective Chief Complaint/HPI Román looks well this morning. He is not febrile. He is not sob, not c/o cough. He received his Suboxone last night, and is not desiring narcotic meds any longer. Objective Physical Examination General Exam: Positive: Alert, Cooperative, Other (No sob, labored breathing nor cough) Eye Exam: Negative: Sclera icteric Neck Exam: Positive: Supple Chest Exam: Positive: Clear to auscultation Abdomen Exam: Positive: Normal bowel sounds, Other (ostomy with liquid stool) Extremity Exam: Negative: Edema Skin Exam: Negative: Rash Neuro Exam: Positive: Normal Speech Psych Exam: Positive: Mental status NL, Mood NL Assessment /Plan Assessment # Large bowel obstruction due to Colon adenocarcinoma # POD # 10 s/p colectomy with ostomy # Psoas muscle abscess # C. diff colitis with sepsis - oral vancomycin - trend CBC # Abnormal CT suggestive of HCAP, but no clinical respiratory symptoms - clinically the patient has no respiratory symptoms to suggest HCAP, I believe his fever + leukocytosis are due to acute c. diff colitis - He completed 7 day course of primaxin yesterday - stop vancomycin low suspicion for MRSA pneumonia # Substance Abuse - continue Suboxone - motrin 600 mg q 6 prn - patient declining narc meds, will stop in am Plan/VTE VTE Prophylaxis Ordered?: Yes VTE Exclusion Mechanical Proph: N/A:VTE Prophy Ordered VTE Exclusion Pharmacological: N/A:VTE Prophy Ordered VS, I&O, 24H, Fishbone Vital Signs/I&O Vital Signs Date Time Temp Pulse Resp B/P (MAP) Pulse Ox O2 Delivery O2 Flow Rate FiO2 06/17/19 10:00 97.8 88 18 106/66 (79) 96 Room Air I&O- Last 24 Hours up to 6 AM 06/17/19 06:00 Intake Total 2510 ml Output Total 1750 ml Balance 760 ml Laboratory Data 24H LABS Laboratory Tests 2 06/16/19 14:50: Clostridium difficile [id number] PRESUMPTIVE NEGATIVE, Clostridium difficile Toxin (PCR) POSITIVEA 06/17/19 06:15: Immature Granulocyte % (Auto) 0.5, Neutrophils (%) (Auto) 94.0H, Lymphocytes (%) (Auto) 2.7L, Monocytes (%) (Auto) 2.7, Eosinophils (%) (Auto) 0.0, Basophils (%) (Auto) 0.1, Neutrophils # (Auto) 29.6H, Lymphocytes # (Auto) 0.9L, Monocytes # (Auto) 0.8, Eosinophils # (Auto) 0.0, Basophils # (Auto) 0.0, Nucleated Red Blood Cells % (auto) 0.0, Anion Gap 8, Glomerular Filtration Rate > 60.0, C alcium Level 8.5 06/17/19 10:06: Vancomycin Level Trough 4.5L CBC/BMP Laboratory Tests 06/17/19 06:15 Microbiology Microbiology 06/16/19 Gram Stain - Final, Resulted 06/16/19 Sputum Culture, Resulted Pending 06/15/19 Blood Culture - Preliminary, Resulted No growth after 24 hours . All specim... 06/15/19 Blood Culture - Preliminary, Resulted No growth after 24 hours . All specim... 06/10/19 Blood Culture - Final, Complete NO GROWTH AFTER 5 DAYS 06/07/19 Blood Culture - Final, Complete NO GROWTH AFTER 5 DAYS 06/07/19 Blood Culture - Final, Complete NO GROWTH AFTER 5 DAYS SARA FUNES MD Jun 17, 2019 14:33
[2019-06-17] MEDS: IBUPROFEN 400 MG TAB PO PRN (17:17)
[2019-06-17 18:00] VITALS: BP 110/64
[2019-06-17 22:00] VITALS: BP 113/71
[2019-06-18] MEDS: VANCOMYCIN ORAL SOL 250MG/5ML ORAL SYRINGE PO SCH ×4 (01:46→17:58)
[2019-06-18] MEDS: IBUPROFEN 400 MG TAB PO PRN (01:46)
[2019-06-18 01:49] VITALS: BP 114/72
[2019-06-18] MEDS: KCL 40MEQ IN D5/NS 1000ML 1,000 ML IV SCH ×2 (03:22→15:00)
[2019-06-18 06:00] VITALS: BP 114/73
[2019-06-18 06:31] LABS: HEMATOCRIT 25.5 % (42.0-52.0); HEMOGLOBIN 8.4 g/dl (13.5-17.5); MEAN CORPUSCULAR HEMOGLOBIN 29.6 pg (27.0-33.0); MEAN CORPUSCULAR HGB CONC 32.9 g/dl (32.0-36.5); MEAN CORPUSCULAR VOLUME 89.8 fl (80.0-96.0); PLATELET COUNT, AUTOMATED 673 10^3/uL (150-450); RED BLOOD COUNT 2.84 10^6/uL (4.30-6.10); WHITE BLOOD COUNT 16.5 10^3/uL (4.0-10.0)
[2019-06-18 06:57] LABS: BLOOD UREA NITROGEN 8 MG/DL (7-18); CALCIUM LEVEL 8.2 MG/DL (8.5-10.1); CARBON DIOXIDE LEVEL 30 MEQ/L (21-32); CHLORIDE LEVEL 97 MEQ/L (98-107); CREATININE FOR GFR 0.42 MG/DL (0.70-1.30); GLOMERULAR FILTRATION RATE > 60.0 (>60); GLUCOSE, FASTING 96 MG/DL (70-100); POTASSIUM SERUM 3.8 MEQ/L (3.5-5.1); SODIUM LEVEL 131 MEQ/L (136-145)
[2019-06-18 07:01] LABS: LYMPHOCYTES 6 % (16-44); MONOCYTES 2 % (0-5); NEUTROPHILS 92 % (28-66)
[2019-06-18 07:02] LABS: ANISOCYTOSIS 1+; PLATELET ESTIMATE INCREASED (NORMAL)
[2019-06-18] MEDS ORDERED: BUPRENORPHINE/NALOXONE 8-2MG SUBLINGUAL TABLET(SUBOXONE) SL SCH (09:00)
[2019-06-18] MEDS: NICOTINE 14 MG/24 HR TRANSDERMAL TD SCH (09:00)
[2019-06-18] MEDS: CelecoXIB (CeleBREX) 100 MG CAP PO SCH ×2 (09:40→20:55)
[2019-06-18 10:00] VITALS: BP 118/72
[2019-06-18] MEDS: SENNA 8.6 MG TAB (SENOKOT) PO SCH ×2 (12:51→20:55)
[2019-06-18] MEDS: DOCUSATE SODIUM 100 MG CAP PO SCH ×2 (12:51→20:55)
[2019-06-18 14:00] VITALS: BP 113/60
--- NOTE | 2019-06-18 15:57 | IPNPDOC ---
Subjective Date Seen The patient was seen on 06/18/19. Subjective Chief Complaint/HPI Román's pain is controlled with suboxone, celebrex and prn motrin. All narcotics have been discontinued. His ostomy output has slowed per RN. Objective Physical Examination General Exam: Positive: Alert, Cooperative, Other (No sob, labored breathing nor cough) Eye Exam: Positive: Conjunctiva & lids normal, EOMI; Negative: Sclera icteric Neck Exam: Positive: Supple Chest Exam: Positive: Clear to auscultation Abdomen Exam: Positive: Normal bowel sounds, Tenderness (appropriate incisional tenderness), Other (ostomy no output this morning) Extremity Exam: Negative: Edema Skin Exam: Negative: Rash Neuro Exam: Positive: Normal Speech Psych Exam: Positive: Mental status NL, Mood NL Assessment /Plan Assessment # Large bowel obstruction due to Colon adenocarcinoma # POD # 111 s/p colectomy with ostomy # Psoas muscle abscess # C. diff colitis with sepsis - oral vancomycin - CBC trending lower - low ostomy output, surgery aware per RN # Mild Hyponatremia - likely from GI losses with c.diff - keep IVFs going - BMP in am # Abnormal CT suggestive of HCAP, but no clinical respiratory symptoms - clinically the patient has no respiratory symptoms to suggest HCAP, I believe his fever + leukocytosis are due to acute c. diff colitis - He has completed 7 day course of primaxin during this stay # Substance Abuse - continue Suboxone - motrin 600 mg q 6 prn Dispo: hopefully home this weekend Plan/VTE VTE Prophylaxis Ordered?: Yes VTE Exclusion Mechanical Proph: N/A:VTE Prophy Ordered VTE Exclusion Pharmacological: N/A:VTE Prophy Ordered VS, I&O, 24H, Fishbone Vital Signs/I&O Vital Signs Date Time Temp Pulse Resp B/P (MAP) Pulse Ox O2 Delivery O2 Flow Rate FiO2 06/18/19 14:00 98.7 104 19 113/60 (77) 98 Room Air I&O- Last 24 Hours up to 6 AM 06/18/19 06:00 Intake Total 1940 ml Output Total 1800 ml Balance 140 ml Laboratory Data 24H LABS Laboratory Tests 2 06/18/19 05:30: Nucleated Red Blood Cells % (auto) 0.0, Neutrophils 92H, Lymphocytes (Manual) 6L, Monocytes (Manual) 2, Anisocytosis 1+, Platelet Estimate INCREASED, Anion Gap 4L, Glomerular Filtration Rate > 60.0, Calcium Level 8.2L CBC/BMP Laboratory Tests 06/18/19 05:30 Microbiology Microbiology 06/16/19 Gram Stain - Final, Complete 06/16/19 Sputum Culture - Final, Complete Yeast Like Organism 06/15/19 Blood Culture - Preliminary, Resulted No Growth after 48 hours. All Specime... 06/15/19 Blood Culture - Preliminary, Resulted No Growth after 48 hours. All Specime... 06/10/19 Blood Culture - Final, Complete NO GROWTH AFTER 5 DAYS SARA FUNES MD Jun 18, 2019 15:57
[2019-06-18 18:00] VITALS: BP 112/62
[2019-06-18] MEDS: ACETAMINOPHEN 650MG ER TAB (TYLENOL ARTHRITIS) PO PRN (20:55)
[2019-06-18] MEDS: RAMELTEON 8 MG TAB (ROZEREM) PO SCH (20:55)
[2019-06-18 22:00] VITALS: BP 119/81
[2019-06-19] MEDS: VANCOMYCIN ORAL SOL 250MG/5ML ORAL SYRINGE PO SCH ×5 (00:41→23:49)
[2019-06-19] MEDS: KCL 40MEQ IN D5/NS 1000ML 1,000 ML IV SCH ×2 (01:07→11:33)
[2019-06-19 02:00] VITALS: BP 104/71
[2019-06-19] MEDS: IBUPROFEN 400 MG TAB PO PRN (04:24)
[2019-06-19 06:00] VITALS: BP 132/78
[2019-06-19] MEDS: BUPRENORPHINE/NALOXONE 8-2MG SUBLINGUAL TABLET(SUBOXONE) SL SCH (06:15)
[2019-06-19 06:22] LABS: BASO % 0.1 % (0.0-1.0); EOS % 0.5 % (0.0-3.0); HEMATOCRIT 24.4 % (42.0-52.0); LYMPH % 13.7 % (24.0-44.0); MEAN CORPUSCULAR HEMOGLOBIN 28.8 pg (27.0-33.0); MEAN CORPUSCULAR HGB CONC 32.8 g/dl (32.0-36.5); MEAN CORPUSCULAR VOLUME 87.8 fl (80.0-96.0); MONO # 1.1 10^3/uL (0.0-0.8); MONO % 14.5 % (0.0-5.0); NEUTROPHILS # 5.3 10^3/uL (1.5-8.5); NEUTROPHILS % 70.9 % (36.0-66.0); PLATELET COUNT, AUTOMATED 660 10^3/uL (150-450); RED BLOOD COUNT 2.78 10^6/uL (4.30-6.10); WHITE BLOOD COUNT 7.5 10^3/uL (4.0-10.0)
[2019-06-19 06:43] LABS: BLOOD UREA NITROGEN 9 MG/DL (7-18); CALCIUM LEVEL 7.7 MG/DL (8.5-10.1); CARBON DIOXIDE LEVEL 30 MEQ/L (21-32); CHLORIDE LEVEL 99 MEQ/L (98-107); CREATININE FOR GFR 0.46 MG/DL (0.70-1.30); GLOMERULAR FILTRATION RATE > 60.0 (>60); GLUCOSE, FASTING 121 MG/DL (70-100); POTASSIUM SERUM 3.5 MEQ/L (3.5-5.1); SODIUM LEVEL 135 MEQ/L (136-145)
[2019-06-19 08:00] VITALS: BP 133/81
[2019-06-19] MEDS: MIRALAX *UNIT DOSE* 17GM PACKET PO SCH ×2 (09:00→20:56)
[2019-06-19] MEDS: NICOTINE 14 MG/24 HR TRANSDERMAL TD SCH (09:00)
[2019-06-19] MEDS: ACETAMINOPHEN 650MG ER TAB (TYLENOL ARTHRITIS) PO PRN ×2 (09:54→22:02)
[2019-06-19] MEDS: ENOXAPARIN 40 MG/0.4 ML SYRINGE (J1650) SC SCH (10:18)
[2019-06-19] MEDS: DOCUSATE SODIUM 100 MG CAP PO SCH ×2 (10:18→20:55)
[2019-06-19] MEDS: SENNA 8.6 MG TAB (SENOKOT) PO SCH ×2 (10:19→20:56)
[2019-06-19] MEDS: CelecoXIB (CeleBREX) 100 MG CAP PO SCH ×2 (10:19→20:55)
[2019-06-19 12:00] VITALS: BP 121/79
[2019-06-19 16:00] VITALS: BP 118/79
--- NOTE | 2019-06-19 16:22 | IPNPDOC ---
Subjective Date Seen The patient was seen on 06/19/19. Subjective Chief Complaint/HPI c/o abd distension, ostomy output recorded as 200 ml so far today. tolerating diet. No nausea nor vomiting. Objective Physical Examination General Exam: Positive: Alert, No Acute Distress, Other (No sob, labored breathing nor cough) Eye Exam: Positive: Conjunctiva & lids normal, EOMI; Negative: Sclera icteric Neck Exam: Positive: Supple Chest Exam: Positive: Clear to auscultation Abdomen Exam: Positive: Normal bowel sounds, Tenderness (appropriate incisional tenderness), Other (ostomy with some output) Extremity Exam: Negative: Edema Skin Exam: Negative: Rash Neuro Exam: Positive: Normal Speech Psych Exam: Positive: Mental status NL, Mood NL Assessment /Plan Assessment # Large bowel obstruction due to Colon adenocarcinoma # POD # 12 s/p colectomy with ostomy # Psoas muscle abscess # C. diff colitis with sepsis - oral vancomycin - CBC is now normal - low ostomy output, check KUB today # Mild Hyponatremia - likely from GI losses with c.diff - resolved - stop IVFs # Abnormal CT suggestive of HCAP, but no clinical respiratory symptoms - clinically the patient has no respiratory symptoms to suggest HCAP, I believe his fever + leukocytosis are due to acute c. diff colitis - He has completed 7 day course of primaxin during this stay - sputum cx grew some yeast # Substance Abuse - continue Suboxone - motrin 600 mg q 6 prn Dispo: hopefully home this weekend Plan/VTE VTE Prophylaxis Ordered?: Yes VTE Exclusion Mechanical Proph: N/A:VTE Prophy Ordered VTE Exclusion Pharmacological: N/A:VTE Prophy Ordered VS, I&O, 24H, [facility] Vital Signs/I&O Vital Signs Date Time Temp Pulse Resp B/P (MAP) Pulse Ox O2 Delivery O2 Flow Rate FiO2 06/19/19 12:00 98.2 92 18 121/79 (93) 97 Room Air I&O- Last 24 Hours up to 6 AM 06/19/19 06:00 Intake Total 1790 ml Output Total 2200 ml Balance -410 ml Laboratory Data 24H LABS Laboratory Tests 2 06/19/19 05:43: Immature Granulocyte % (Auto) 0.3, Neutrophils (%) (Auto) 70.9H, Lymphocytes (%) (Auto) 13.7L, Monocytes (%) (Auto) 14.5H, Eosinophils (%) (Auto) 0.5, Basophils (%) (Auto) 0.1, Neutrophils # (Auto) 5.3, Lymphocytes # (Auto) 1.0L, Monocytes # (Auto) 1.1H, Eosinophils # (Auto) 0.0, Basophils # (Auto) 0.0, Nucleated Red Blood Cells % (auto) 0.0, Anion Gap 6L, Glomerular Filtration Rate > 60.0, Calcium Level 7.7L, C-Reactive Protein, Quantitative 14.00H CBC/BMP Laboratory Tests 06/19/19 05:43 Microbiology Microbiology 06/16/19 Gram Stain - Final, Complete 06/16/19 Sputum Culture - Final, Complete Yeast Like Organism 06/15/19 Blood Culture - Preliminary, Resulted No Growth after 72 hours. All specime... 06/15/19 Blood Culture - Preliminary, Resulted No Growth after 72 hours. All specime... 06/10/19 Blood Culture - Final, Complete NO GROWTH AFTER 5 DAYS SARA FUNES MD Jun 19, 2019 16:22
--- NOTE | 2019-06-19 16:43 | REP ---
Clinical: Abdominal distension. Technique: Two supine views of the abdomen and pelvis. Findings: Evidence for colostomy overlying the left mid abdomen. Bowel gas pattern is nonspecific. No organomegaly. Surgical clips and suture material consistent with recent surgery. Skeletal structures are intact. Impression: Nonspecific bowel gas pattern. Electronically Signed by Marco Coon MD 06/19/2019 04:35 P
[2019-06-19] MEDS: RAMELTEON 8 MG TAB (ROZEREM) PO SCH (20:56)
[2019-06-19 22:00] VITALS: BP 132/81
[2019-06-20] MEDS: BUPRENORPHINE/NALOXONE 8-2MG SUBLINGUAL TABLET(SUBOXONE) SL SCH (06:21)
[2019-06-20] MEDS: VANCOMYCIN ORAL SOL 250MG/5ML ORAL SYRINGE PO SCH (06:21)
[2019-06-20 06:25] LABS: HEMATOCRIT 25.2 % (42.0-52.0); HEMOGLOBIN 8.4 g/dl (13.5-17.5); MEAN CORPUSCULAR HGB CONC 33.3 g/dl (32.0-36.5); MEAN CORPUSCULAR VOLUME 86.9 fl (80.0-96.0); PLATELET COUNT, AUTOMATED 721 10^3/uL (150-450); WHITE BLOOD COUNT 4.6 10^3/uL (4.0-10.0)
[2019-06-20 06:28] VITALS: BP 120/82
[2019-06-20 06:40] LABS: BLOOD UREA NITROGEN 10 MG/DL (7-18); CARBON DIOXIDE LEVEL 29 MEQ/L (21-32); CHLORIDE LEVEL 99 MEQ/L (98-107); CREATININE FOR GFR 0.39 MG/DL (0.70-1.30); GLOMERULAR FILTRATION RATE > 60.0 (>60); GLUCOSE, FASTING 104 MG/DL (70-100); POTASSIUM SERUM 4.2 MEQ/L (3.5-5.1); SODIUM LEVEL 135 MEQ/L (136-145)
[2019-06-20 07:12] LABS: ANISOCYTOSIS 1+; ATYPICAL LYMPH 3 % (0-5); BASOPHILS 1 % (0-1); EOSINOPHILS 1 % (0-3); LYMPHOCYTES 38 % (16-44); MONOCYTES 14 % (0-5); NEUTROPHILS 42 % (28-66); PLATELET ESTIMATE INCREASED (NORMAL); POIKILOCYTOSIS 1+; POLYCHROMASIA 1+
[2019-06-20] MEDS: MIRALAX *UNIT DOSE* 17GM PACKET PO SCH (09:00)
[2019-06-20] MEDS: ENOXAPARIN 40 MG/0.4 ML SYRINGE (J1650) SC SCH (09:00)
[2019-06-20] MEDS: NICOTINE 14 MG/24 HR TRANSDERMAL TD SCH (09:00)
[2019-06-20] MEDS: DOCUSATE SODIUM 100 MG CAP PO SCH (09:37)
[2019-06-20] MEDS: SENNA 8.6 MG TAB (SENOKOT) PO SCH (09:37)
[2019-06-20] MEDS: CelecoXIB (CeleBREX) 100 MG CAP PO SCH (09:37)
[2019-06-20] MEDS ORDERED: DOCU100C16 PO (10:05)
[2019-06-20] MEDS ORDERED: CELE100C PO (10:05)
[2019-06-20] MEDS ORDERED: SENN18TA PO (10:05)
[2019-06-20] MEDS ORDERED: FIRV50SO PO (10:05)
--- NOTE | 2019-06-20 10:08 | IPNPDOC ---
Subjective Date Seen The patient was seen on 06/20/19. Subjective Chief Complaint/HPI Feels fine, ostomy output has improved. Dr. Crain at bedside removing nelida Objective Physical Examination General Exam: Positive: Alert, No Acute Distress, Other Eye Exam: Positive: Conjunctiva & lids normal, EOMI Neck Exam: Positive: Supple Chest Exam: Positive: Clear to auscultation Abdomen Exam: Positive: Normal bowel sounds, Tenderness, Other Extremity Exam: Negative: Edema Skin Exam: Negative: Rash Neuro Exam: Positive: Normal Speech Psych Exam: Positive: Mental status NL, Mood NL Assessment /Plan Assessment # Large bowel obstruction due to Colon adenocarcinoma # POD # 13 s/p colectomy with ostomy # Psoas muscle abscess # C. diff colitis with sepsis - oral vancomycin x 7 days - stool softners prn - d/w Dr. Crain f/u in 2 weeks, PCP in 1 week # Mild Hyponatremia - resolved # Abnormal CT suggestive of HCAP, but no clinical respiratory symptoms - clinically the patient has no respiratory symptoms to suggest HCAP, I believe his fever + leukocytosis are due to acute c. diff colitis - He has completed 7 day course of primaxin during this stay - sputum cx grew some yeast # Substance Abuse - continue Suboxone - motrin 600 mg q 6 prn Dispo: home today Plan/VTE VTE Prophylaxis Ordered?: Yes VTE Exclusion Mechanical Proph: N/A:VTE Prophy Ordered VTE Exclusion Pharmacological: N/A:VTE Prophy Ordered VS, I&O, 24H, Fishbone Vital Signs/I&O Vital Signs Date Time Temp Pulse Resp B/P (MAP) Pulse Ox O2 Delivery O2 Flow Rate FiO2 06/20/19 06:28 97.2 83 18 120/82 (95) 96 Room Air I&O- Last 24 Hours up to 6 AM 06/20/19 06:00 Intake Total 480 ml Output Total 1500 ml Balance -1020 ml Laboratory Data 24H LABS Laboratory Tests 2 06/20/19 06:01: Nucleated Red Blood Cells % (auto) 0.0, Neutrophils 42, Band Neutrophils 1, Lymphocytes (Manual) 38, Monocytes (Manual) 14H, Eosinophils (Manual) 1, Basophils (Manual) 1, Atypical Lymphocytes 3, Polychromasia 1+, Poikilocytosis 1+, Anisocytosis 1+, Platelet Estimate INCREASED, Anion Gap 7L, Glomerular Filtration Rate > 60.0, Calcium Level 8.0L CBC/BMP Laboratory Tests 06/20/19 06:01 Microbiology Microbiology 06/16/19 Gram Stain - Final, Complete 06/16/19 Sputum Culture - Final, Complete Yeast Like Organism 06/15/19 Blood Culture - Preliminary, Resulted No Growth after 72 hours. All specime... 06/15/19 Blood Culture - Preliminary, Resulted No Growth after 72 hours. All specime... 06/10/19 Blood Culture - Final, Complete NO GROWTH AFTER 5 DAYS SARA FUNES MD Jun 20, 2019 10:08
[2019-06-20] MEDS ORDERED: VANC1CAP7 PO (11:00)
[2019-06-20] MEDS ORDERED: VANC250C3 PO (11:30)
[2019-06-20] MEDS ORDERED: FLAG500T PO (13:21)
--- NOTE | 2019-06-23 20:05 | DSES ---
DATE OF ADMISSION: 06/07/2019 DATE OF DISCHARGE: 06/20/2019 DISCHARGE DIAGNOSES: 1. Large bowel obstruction to colon, adenocarcinoma. 2. Colon adenocarcinoma, diagnosed this hospitalization by pathology. 3. Status post sigmoid colectomy with colostomy, as well as right colectomy with ileocolic anastomosis. 4. Psoas abscess. 5. Clostridium (C) difficile colitis with sepsis. 6. Hyponatremia. 7. Abnormal CT scan of the chest. 8. Substance abuse. 9. Normocytic normochromic anemia, likely secondary to colon cancer. PROCEDURES PERFORMED DURING THIS HOSPITALIZATION: 1. Sigmoid colectomy with colostomy. 2. Splenic flexure takedown. 3. Right colectomy with ileocolic anastomosis. CONSULTANTS ON THE CASE: Dr. Crain, general surgery. DISPOSITION: Patient is discharged home with home health for ostomy changes.. CONDITION ON DISCHARGE: Stable. DISCHARGE INSTRUCTIONS: Patient is instructed to follow up with Dr. Crain in approximately two weeks. Patient is to follow up with his primary care provider (PCP) for referral to oncology as an outpatient. He is to follow up with his PCP within the next week. DISCHARGE MEDICATIONS: - ibuprofen 800 mg every 8 hours as needed for pain - Suboxone 8 mg/2 mg sublingual film, one strip daily - Flagyl 500 mg three times a day for one week RELEVANT IMAGING STUDIES: Patient had multiple CT of the abdomen and pelvis during this hospitalization, as well as chest x-rays and CT chest. Please reference individual reports for details. RELEVANT LABORATORIES: Clostridium (C) difficile was positive. Blood cultures times five grew no organisms. Sputum gram stains grew small amounts of non-budded yeast. At discharge, patient's white blood cell count was 4.6, hemoglobin was 8.4, hematocrit 25.2, platelet count was 721,000. Sodium 135, potassium 4.2, chloride 99, bicarbonate 29, BUN 10, creatinine 0.39, calcium is 8. Urinalysis otherwise unremarkable. HOSPITAL COURSE: Mr. Huntley is a 44-year-old gentleman who had presented to the hospital with abdominal pain which was associated with nausea and vomiting. He had recently been seen in [place] and had a drain placed for an intraabdominal abscess. A CT of the abdomen and pelvis showed that he had megacolon with an apple core lesion suspicious for malignancy. Dr. Crain was consulted. The patient was taken to the operating theater and underwent the procedures described above. He had a prolonged postsurgical course as we awaited for bowel function. Patient's pain was controlled with intravenous narcotics. Once his diet was advanced, we were able to transition him to oral. Patient made the choice to discontinue the narcotics and he was continued on Celebrex as well as Motrin and his Suboxone was resumed. Patient did develop a significant leukocytosis at 30,000 on hospital day 6, I suspect, and CT scan of his chest was done, which was suspicious of pneumonia. However, clinically, patient had no symptoms indicative of pneumonia, no cough, no shortness of breath, no hypoxia. A Clostridium (C) difficile assay was checked and it was found to be positive. Patient was thought to be septic from C. difficile. He had been on Primaxin for nearly a week following his surgery. After a week, this was discontinued. It was not felt that he needed further antibiotics, as he did not have any clinical pneumonia. He was treated with oral vancomycin with improvement in his white blood cell count. When we did start his Suboxone, his ostomy output slowed, but then subsequently picked up with addition of stool softeners and such. Patient was cleared by surgery to go home and was discharged in stable condition with home health for his ostomy care. A total of 30 minutes was spent completing all discharge paperwork.
== END 2019-06-20 11:22 | disposition home or self-care (01) | DRG 710 ==
LOC: M ED 22:30 → M ED INP 06-07 03:08 → ENRESERVTM 06-07 03:52 → ENRESERVDT 06-07 03:52 → M PCU 06-07 04:27 → M MSPAV 06-09 11:45
PROVIDERS: ADMIT Internal Medicine; ATTEND Internal Medicine
PROC: 0DBN0ZZ Excision of Sigmoid Colon, Open Approach (ICD-10-PCS; 2019-06-07)
PROC: 0DBL0ZZ Excision of Transverse Colon, Open Approach (ICD-10-PCS; 2019-06-07)
PROC: 0D1N0Z4 Bypass Sigmoid Colon to Cutaneous, Open Approach (ICD-10-PCS; 2019-06-07)
PROC: 0DBM0ZZ Excision of Descending Colon, Open Approach (ICD-10-PCS; principal; 2019-06-07 10:19)
DX: A41.9 Sepsis, unspecified organism (principal); K56.609 Unspecified intestinal obstruction, unspecified as to partial versus complete obstruction; R18.8 Other ascites; K68.12 Psoas muscle abscess; A04.72 Enterocolitis due to Clostridium difficile, not specified as recurrent; E87.1 Hypo-osmolality and hyponatremia; E83.42 Hypomagnesemia; C18.7 Malignant neoplasm of sigmoid colon; K59.31 Toxic megacolon; D64.9 Anemia, unspecified; F17.200 Nicotine dependence, unspecified, uncomplicated; Z79.899 Other long term (current) drug therapy; K91.89 Other postprocedural complications and disorders of digestive system

== ENCOUNTER 2019-06-22 07:30 | Inpatient (IN) | payer OTHER ==
[~2019-06-22] VITALS: Ht 175.3 cm; Wt 55.5 kg
[2019-06-22] VITALS (23 sets, daily range): BP systolic 95–132; BP diastolic 65–81
[~2019-06-22 07:30] MED LIST changes: +CELE100C PO; +DOCU100C16 PO; +FIRV50SO PO; +FLAG500T PO; +SENN18TA PO; +SUBO8MIS SL; +VANC1CAP7 PO; +VANC250C3 PO
[2019-06-22 07:59] LABS: HEMATOCRIT 26.6 % (42.0-52.0); HEMOGLOBIN 8.8 g/dl (13.5-17.5); MEAN CORPUSCULAR HEMOGLOBIN 29.3 pg (27.0-33.0); MEAN CORPUSCULAR HGB CONC 33.1 g/dl (32.0-36.5); MEAN CORPUSCULAR VOLUME 88.7 fl (80.0-96.0); PLATELET COUNT, AUTOMATED 975 10^3/uL (150-450)
[2019-06-22] MEDS ORDERED: ONDANSETRON 4MG/2ML VIAL (J2405) IV ONE (08:15)
[2019-06-22 08:16] LABS: INR 1.24; PARTIAL THROMBOPLASTIN TIME 29.4 SECONDS (25.0-38.4); PROTHROMBIN TIME 15.4 SECONDS (11.8-14.0)
[2019-06-22] MEDS: HYDROMORPHONE HCL 0.5 MG/ 0.5 ML SYRINGE (J1170 PER 1) IV PRN ×7 (08:18→18:50)
[2019-06-22 08:23] LABS: ALBUMIN 1.8 GM/DL (3.2-5.2); BILIRUBIN,DIRECT 0.1 MG/DL (0.0-0.2); BILIRUBIN,TOTAL 0.3 MG/DL (0.2-1.0); TOTAL PROTEIN 6.2 GM/DL (6.4-8.2)
[2019-06-22 08:30] LABS: LYMPHOCYTES 13 % (16-44); MONOCYTES 8 % (0-5); NEUTROPHILS 76 % (28-66)
[2019-06-22 08:31] LABS: ANISOCYTOSIS 1+; PLATELET ESTIMATE INCREASED (NORMAL)
[2019-06-22 08:32] LABS: POLYCHROMASIA 1+
[2019-06-22] MEDS ORDERED: ENOXAPARIN 40 MG/0.4 ML SYRINGE (J1650) SC SCH (09:00)
--- NOTE | 2019-06-22 09:04 | REP ---
Clinical: Small bowel obstruction. Technique: Supine and right lateral decubitus radiographs. Findings: Evidence for colostomy. Nonspecific bowel distension is appreciated. Distended stomach versus pneumoperitoneum cannot be differentiated on decubitus radiograph although upright view of the chest does not demonstrate free air below the right hemidiaphragm suggesting distended stomach. Consider left lateral decubitus if possible. Impression: Postsurgical changes. Moderately distended small and large bowel. Suspected distended stomach rather than free air although examination is limited. If necessary consider left lateral decubitus radiograph or CT for further investigation. Electronically Signed by Marco Coon MD 06/22/2019 08:56 A
[2019-06-22] MEDS ORDERED: METR-265 PO (09:29)
[2019-06-22] MEDS ORDERED: GNP8.6TA PO (09:29)
[2019-06-22] MEDS ORDERED: COLA100C5 PO (09:29)
[2019-06-22] MEDS ORDERED: HYDROMORPHONE HCL 0.5 MG/ 0.5 ML SYRINGE (J1170 PER 1) IV PRN (09:45)
[2019-06-22] MEDS ORDERED: HYDROmorphone HCL 2 MG/ML 1ML VIAL (J1170) IV PRN ×2 (09:45→18:00)
[2019-06-22] MEDS ORDERED: D5W/0.45% SODIUM CHLORIDE 1,000 ML IV SCH (09:45)
--- NOTE | 2019-06-22 10:28 | REP ---
Clinical: Small bowel obstruction. Technique: Axial noncontrast images from the lung bases to the pubic symphysis with coronal and sagittal re-formations. Comparison: 01/24. Findings: Marked amount of pneumoperitoneum and free fluid noted throughout the abdomen and pelvis has increased from prior examination. Mildly prominent dilated loops of small bowel containing fluid and air cannot exclude ileus or partial obstruction. Moderate amount of fecal material noted with in the distal bowel extending through the bowel loops towards the ostomy. Further evaluation is significantly limited due to the lack of contrast as well as surrounding ascites and gas. Liver, spleen, pancreas, gallbladder, bilateral adrenal glands and kidneys are relatively normal in appearance. A nasogastric tube is identified within the stomach. Skeletal structures are stable. Lung bases demonstrate minimal left basilar atelectasis and small pleural effusion. Impression: Marked ascites and pneumoperitoneum increased from prior examination. The possibility of anastomotic leak cannot be excluded. Evaluation is severely limited. Electronically Signed by Marco Coon MD 06/22/2019 10:20 A
[2019-06-22] MEDS: metroNIDAZOLE 500 MG in IV 1 EA IV SCH ×2 (11:25→19:10)
[2019-06-22] MEDS ORDERED: LIDOCAINE 2% INJ 100 MG/5 ML SDV (FOR ANES.) As Ordered ONE (11:41)
[2019-06-22] MEDS ORDERED: propofoL 200 MG/20 ML VIAL As Ordered ONE (11:41)
[2019-06-22] MEDS ORDERED: ROCURONIUM BROMIDE 50 MG/5 ML VIAL As Ordered ONE ×2 (11:41→16:44)
[2019-06-22] MEDS ORDERED: ONDANSETRON 4MG/2ML VIAL (J2405) As Ordered ONE (11:41)
[2019-06-22] MEDS ORDERED: dexameTHASONE 4 MG/ML 1ML VIAL (J1100) As Ordered ONE (11:41)
[2019-06-22] MEDS ORDERED: ACETAMINOPHEN 1000MG 100ML IV BTL (OFIRMEV) (J0131 PER 10MG) As Ordered ONE (11:47)
[2019-06-22] MEDS ORDERED: LR 1,000 ML IV ONE (12:00)
[2019-06-22] MEDS ORDERED: VANCOMYCIN ORAL SOL 250MG/5ML ORAL SYRINGE PO SCH (12:00)
[2019-06-22] MEDS: IMIPENEM/CILASTATIN 500 MG in D5W MINI-BAG PLUS 100 ML IV SCH ×2 (12:16→20:34)
--- NOTE | 2019-06-22 12:17 | CR ---
DATE OF CONSULTATION: 06/22/2019 REASON FOR CONSULTATION: Abdominal pain with free air. HISTORY OF PRESENT ILLNESS: The patient is a 44-year-old man who was discharged from [facility] on 06/20/2019 following a roughly 2-week hospital stay. He had been having problems with an abscess in the left lower quadrant and had undergone a percutaneous drainage. He subsequently presented with evidence for a bowel obstruction. On 06/07/2019, Dr. Crain took him to the operating room and performed a sigmoid colectomy for an obstructing mass and also resected the right colon apparently because of marked distension and concerns about ischemia. His lesion in the left colon proved to be a carcinoma of the colon, which by pathology, was a well-differentiated adenocarcinoma. The tumor extended into the subserosal tissue and 10 lymph nodes were identified that showed no metastatic tumor. He had a difficult postop course, particularly as regards with pain management. He has been on Suboxone for a narcotic addiction problem and this made the pain management more difficult. He also developed what was diagnosed as Clostridium difficile approximately 4-5 days before discharge and responded readily to antibiotics. When he was discharged on the , he reported that his colostomy was functioning well and he emptied it several times. He reports that yesterday he noted a weird pain in the left upper abdomen later in the day. Since then he has not had any output from his colostomy. He has had increased pain and returned to the emergency department today with a distended abdomen. Initially an x-ray suggested a distended stomach and colon but the findings were suspicious for free air and he had a CT scan that clearly shows a large amount of free air and free fluid in the abdomen. He was admitted by the hospitalist because of his other underlying issues and he had been on their service during his recent hospital stay. He was admitted to the intensive care unit (ICU) as a progressive care unit (PCU) patient and I am now seeing him for his apparent perforation. MEDICATIONS ON ADMISSION: Include - Suboxone one film sublingually daily - Colace 200 mg twice daily - ibuprofen 800 mg by mouth every 6 hours as needed - metronidazole 500 mg by mouth every 8 hours - Senolax. ALLERGIES: The patient reports no known medication allergies. PAST SURGICAL HISTORY: Surgical history is significant only for a percutaneous drainage of his left lower quadrant abscess that had been recent and then his surgery on 06/07/2019 for a left colectomy and resection of the right colon with creation of a colostomy. MEDICAL HISTORY: Significant for his history of opiate abuse. He reports that this had started from treatment for chronic back pain. SOCIAL HISTORY: He has a history of tobacco use. FAMILY HISTORY: Noncontributory. REVIEW OF SYSTEMS: Reveals no history of chest pain, palpitations, shortness of breath, wheezing, cough or sputum production. He denies dysuria or hematuria. His colostomy had been working when he was discharged on the but has had no output since yesterday. He denies any history of seizures or stroke. He has had no history of deep venous thrombosis (DVT) or pulmonary embolus. PHYSICAL EXAMINATION: The patient's most recent vital signs show a temperature of 97.3, pulse 96, respirations of 18 and blood pressure of 114/72. He is a somewhat pale, thin man lying quietly on the hospital bed with a nasogastric tube in place. He appears somewhat older than his stated age. Neck is supple without mass. Heart exam shows a regular rhythm. Lungs show clear breath sounds bilaterally. The abdomen is somewhat distended, diffusely. He has a recent midline incision. This has some Steri-Strips still in place. He has a colostomy in the left upper quadrant with an appliance in place. He has some rare soft bowel sounds. There is some tympany to percussion in the epigastrium. He has marked tenderness to palpation in the upper abdomen in particular. The lower extremities are without edema and he has palpable dorsalis pedis and posterior tibial pulses. He also has palpable radial pulses bilaterally. Laboratory studies today show a white count of 9000, hemoglobin of 9, hematocrit of 27 and platelet count of 975,000. Differential count shows 76% neutrophils, 3 bands, 13 lymphocytes and 8 monocytes. Chemistry profile showed a sodium of 134, potassium 3.9, chloride 98, CO2 of 28, BUN of 19, creatinine 0.4 and a glucose of 110. His liver function tests are normal with a slight elevation of the alkaline phosphatase to 162. Total protein is 6.2 with an albumin of 1.8. Lipase was 48. He had today an abdominal x-ray that showed a large amount of air in the left upper quadrant. The CT scan shows that the nasogastric tube is within the stomach which lies posterior to a large pocket of air and fluid in the upper and mid abdomen. The study was done without oral or IV contrast and the bowel discernment is very difficult. I did review several x-rays toward the end of his recent hospital stay and a CT scan of the abdomen and pelvis on 06/15/2019 showed a minimal amount of pneumoperitoneum, which apparently had been decreased from a prior study and this may have been resolution of postoperative gas. The transverse colon at that time was somewhat dilated. IMPRESSION: 1. Perforated viscus now 15 days postop from major abdominal surgery with a right hemicolectomy and left colon resection with a colostomy. 2. Recent Clostridium difficile colitis. 3. History of opiate addiction on buprenorphine. 4. Anemia. PLAN: The patient was counseled that the CT scan shows free air and that he requires surgery to address this. I advised him that this is indicative of a perforation of some hollow viscus with his abdomen. It is possible this represents a perforated gastric ulcer, although it is also possible that this could represent perforation of his remaining colon. Other possibilities exist and I advised him that we would just need to go look inside and see what we find and determine how to fix this problem. He will be placed on Primaxin for broad-spectrum antibiotic coverage and I will also give him a dose of Diflucan at this point. He was counseled regarding the risks and possible benefits of the surgery. His nasogastric (NG) tube is in place. We will place a Arboleda catheter after surgery. I anticipate that we will have a difficult time managing his postoperative pain again given his narcotic addiction and his Suboxone but we will need to address this as best we can. It seems to me that the most likely problem would be a perforated ulcer given our use of nonsteroidal to try to reduce his need for narcotics during his recent hospital stay. It is quite possible he will require a blood transfusion in the near future. I suspect that he is dehydrated at this point and so his hematocrit is likely somewhat artificially elevated. GAUTAM
[2019-06-22] MEDS ORDERED: FLUCONAZOLE 400 MG in IV 1 EA IV ONE (13:00)
[2019-06-22] MEDS: NS 1,000 ML IV SCH ×2 (13:18→20:02)
--- NOTE | 2019-06-22 13:55 | HPEPDOC ---
General Date of Admission Jun 22, 2019 at 09:31 Date of Service: Jun 22, 2019 Chief Complaint The patient is a 44-year-old male who presented to the emergency room with complaints of abdominal pain and distention History of Present Illness Patient is a 44-year-old male with a PMHx of recent diagnosed colon adenocarcinoma (s/p colectomy [R colon / Sigmoid colon], Negative LN x 10), Rec ent C. difficile colitis (on Flagyl PO outpatient) and opiate dependence (on Suboxone) who presented to the ER collective abdominal pain / distention. Patient presented to the hospital on 06/07/2019 and was found to have significant abdominal pain. He had noted that prior to that he received an IR guided drain in [place] for an abscess. Imaging was significant for a suspected malignancy and he received a surgery on 06/07/2019 for an obstructing descending colon / sigmoid colon mass. Patient received a sigmoid colectomy with colostomy splenic flexure takedown and a right colectomy with ileocolonic anastomosis. Patients hospital course was complicated with C. difficile infection, he was sent home with Flagyl PO. Patient reported that he was discharged on 06/20 and was doing relatively well. . He noted that he was able to tolerate a diet and continue to advance. He reported that yesterday he had consumed a [employer] and had several meals from there. He noted that later that evening he began to experience abdominal distention and decreased output from his ostomy. Patient denies any gas output from the ostomy site. He does report significant tenderness and abdominal pain that he reports as a pressure like intensity, continuous and non-radiating. He denies nausea, vomiting, chest pain, palpitations, cough. Patient does report difficulty with deep inspiration, noting that it causes worsening abdominal pain. Patient denies any urinary discomfort. He does report a 25 pound weight loss over 2 weeks, and notes that his appetite is fairly normal. Home Medications Scheduled Buprenorphine HCl/Naloxone HCl (Suboxone 8 mg-2 mg Sl Film) 1 Each Film, 1 FILM SL DAILY, (Reported) Docusate Sodium (Colace) 100 Mg Capsule, 200 MG PO BID, (Reported) Metronidazole (Metronidazole) 500 Mg Tablet, 500 MG PO Q8H, (Reported) FILLED 06/20/19 FOR 5 DAYS Sennosides (Senna Lax) 8.6 Mg Tablet, 17.2 MG PO BID, (Reported) Scheduled PRN Ibuprofen (Ibuprofen) 800 Mg Tablet, 800 MG PO Q6H PRN for PAIN, (Reported) Allergies Coded Allergies: No Known Allergies (Unverified , 04/13/18) Past Medical History Medical History Colon adenocarcinoma (s/p colectomy [R colon / Sigmoid colon], Negative LN x 10), Recent C. 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 Review of Systems Other systems 10 point review of systems complete, all negative otherwise stated in HPI Vital Signs - Vitals: BP 114/72, HR 96, RR 18, Sat 97%RA, Temp 97.3F - General: Lying in bed, Cachectic, appears to be in pain, AAOx3 - HEENT: NC, AT, PERRLA, EOMI - CVS: Tachycardic, +S1S2 - Lungs: Fair air entry bilaterally, No appreciable wheezing / rales / rhonchi - Abdomen: Soft, Distended, LLQ ostomy noted - no output noted; diffusely tender - Extremities: No lower extremity edema, No calf tenderness - Neuro: No focal motor or sensory deficit - Skin: No visible rashes Laboratory Data Labs 24H Laboratory Tests 2 06/22/19 07:45: Nucleated Red Blood Cells % (auto) 0.0, Neutrophils 76H, Band Neutrophils 3, Lymphocytes (Manual) 13L, Monocytes (Manual) 8H, Polychromasia 1+, Anisocytosis 1+, Platelet Estimate INCREASED, Prothrombin Time 15.4H, Prothromb Time International Ratio 1.24, Activated Partial Thromboplast Time 29.4, Total Bilirubin 0.3, Direct Bilirubin 0.1, Aspartate Amino Transf (AST/SGOT) 9, Alanine Aminotransferase (ALT/SGPT) 24, Alkaline Phosphatase 162H, Total Protein 6.2L, Albumin 1.8L, Albumin/Globulin Ratio 0.41L, Lipase 48L 06/22/19 07:48: POC Glucose (Misc Panel) 110H, POC Sodium (Misc Panel) 134L, POC Potassium (Misc Panel) 3.9, POC Chloride (Misc Panel) 98, POC Total CO2 (Misc Panel) 28.0H, POC Blood Urea Nitrogen (Misc Panel 19, POC Ionized Calcium (Misc Panel) 4.5, POC Creatinine (Misc Panel) 0.4L, POC Hematocrit (Misc Panel) 25.0L CBC/BMP Laboratory Tests 06/22/19 07:45 Plan / VTE VTE Prophylaxis Ordered?: Yes Plan Plan Abdominal tenderness / distention / no output from ostomy - Presented to emergency room with worsening abdominal pain and distention associated with colostomy - Patient has a recent surgical intervention on 06/07/[address] Crain for colectomy / ostomy creation - Hospital course was complicated with C. diff infection - Remains hemodynamically stable / afebrile - XR abdomen 06/22: Postsurgical changes. Moderately distended small and large bowel. Suspected distended stomach rather than free air although examination is limited. If necessary consider left lateral decubitus radiograph or CT for further investigation. - CT abdomen / pelvis 06/22: Marked ascites and pneumoperitoneum increased from prior examination. The possibility of anastomotic leak cannot be excluded. Evaluation is severely limited. - Will check blood cultures / lactic acid - Aggressive IV fluid support - Case discussed with general surgery, Dr. Reynolds - will be on consultation; plans to take patient to OR emergently today - Will provide coverage for intra-abdominal source of infection (Imipenem) and C. diff coverage (Vanco and Flagyl) Colon adenocarcinoma - s/p colectomy [R colon / Sigmoid colon] - Negative LN x 10 - Will need outpatient follow up with oncology Recent C. difficile colitis - See above Hyponatremia - likely 2/2 hypotonic hypovolemic / euvolemic etiology - Mild - Will hold off on full workup at this point - Will c/w fluids Normocytic anemia - Hg appears to be at baseline Thrombocytosis - likely 2/2 reactive etiology - possibly 2/2 blood loss / infection - Currently counts are significantly higher than prior - Will continue to monitor - If failure to improve will consider Hematology consultation Opiate dependence - Will hold Suboxone - Will c/w pain control will Dilaudid Gastrointestinal prophylaxis - Will start Protonix DVT prophylaxis - Will start Lovenox MATTHEW TRISTAN MD Jun 22, 2019 13:55
[2019-06-22] MEDS ORDERED: fentaNYL 250 MCG/5 ML INJECTION (J3010) As Ordered ONE ×2 (14:06→14:57)
[2019-06-22] MEDS ORDERED: MIDAZOLAM INJ 2 MG/2 ML VIAL (J2250) As Ordered ONE (14:06)
[2019-06-22] MEDS ORDERED: SUCCINYLCHOLINE 100 MG/5 ML SYRINGE (J0330) As Ordered ONE (14:42)
[2019-06-22] MEDS ORDERED: SUGAMMADEX SODIUM 500 MG/5 ML VIAL (BRIDION) As Ordered ONE (15:19)
[2019-06-22] MEDS ORDERED: CALCIUM CHLORIDE 10% 1 GM/10 ML SYR As Ordered ONE (15:57)
[2019-06-22] MEDS ORDERED: HYDROmorphone HCL 2 MG/ML 1ML VIAL (J1170) As Ordered ONE (16:26)
[2019-06-22] MEDS: HumaLOG INSULIN (NovoLOG) PER UNIT SC SCH ×2 (18:00→23:56)
[2019-06-22] MEDS ORDERED: HYDROMORPHONE HCL 0.5 MG/ 0.5 ML SYRINGE (J1170 PER 1) As Ordered ONE ×5 (18:18→18:58)
[2019-06-22] MEDS ORDERED: oxyCODONE 5MG TAB PO PRN (18:45)
[2019-06-22] MEDS ORDERED: fentaNYL 100 MCG/2 ML INJECTION (J3010) IV PRN (18:45)
[2019-06-22] MEDS ORDERED: ONDANSETRON 4MG/2ML VIAL (J2405) IV PRN (18:45)
--- NOTE | 2019-06-22 18:46 | REP ---
Clinical: Postoperative assessment . Comparison: 06/22/2019 . Findings: Nasogastric tube in satisfactory position. A suspected vascular catheter is identified at the right thoracic inlet and crosses to the left of the superior mediastinum and overlies the aortic arch. Correlation is recommended as this may be arterial in position. The mediastinum and cardiac silhouette are stable and within normal limits for portable technique. Trace atelectasis at the left lung base suggested. No consolidation, significant effusion, or pneumothorax. Skeletal structures are intact. Impression: Trace left basilar atelectasis suggested. Nasogastric tube in satisfactory position. Right central line as described above should be correlated with output to distinguish between arterial or venous placement. Electronically Signed by Marco Coon MD 06/22/2019 06:38 P
[2019-06-22] MEDS ORDERED: metroNIDAZOLE/NACL 500MG(5MG/ML)100 ML BAG (S0030) As Ordered ONE (18:49)
[2019-06-22 19:29] LABS: HEMOGLOBIN 8.2 g/dl (13.5-17.5); MEAN CORPUSCULAR HEMOGLOBIN 29.2 pg (27.0-33.0); MEAN CORPUSCULAR HGB CONC 32.8 g/dl (32.0-36.5); PLATELET COUNT, AUTOMATED 938 10^3/uL (150-450); RED BLOOD COUNT 2.81 10^6/uL (4.30-6.10); WHITE BLOOD COUNT 10.4 10^3/uL (4.0-10.0)
[2019-06-22 19:42] LABS: ALBUMIN 1.5 GM/DL (3.2-5.2); ALT/SGPT 24 U/L (12-78); BILIRUBIN,TOTAL 0.3 MG/DL (0.2-1.0); BLOOD UREA NITROGEN 18 MG/DL (7-18); CALCIUM LEVEL 7.9 MG/DL (8.5-10.1); CARBON DIOXIDE LEVEL 26 MEQ/L (21-32); CHLORIDE LEVEL 107 MEQ/L (98-107); CREATININE FOR GFR 0.41 MG/DL (0.70-1.30); GLOMERULAR FILTRATION RATE > 60.0 (>60); GLUCOSE, FASTING 85 MG/DL (70-100); POTASSIUM SERUM 4.9 MEQ/L (3.5-5.1); SODIUM LEVEL 140 MEQ/L (136-145); TOTAL PROTEIN 4.7 GM/DL (6.4-8.2)
[2019-06-22 19:59] LABS: ANISOCYTOSIS 2+; BASOPHILS 1 % (0-1); HYPOCHROMASIA 1+; LYMPHOCYTES 8 % (16-44); MONOCYTES 7 % (0-5); NEUTROPHILS 59 % (28-66)
[2019-06-22 20:01] LABS: PLATELET ESTIMATE INCREASED (NORMAL); SPHEROCYTES 1+; TEAR DROP CELLS 1+
[2019-06-22] MEDS: PANTOPRAZOLE 40MG INJ (PROTONIX) (C9113) IV SCH (20:01)
[2019-06-22] MEDS: HYDROmorphone HCL 2 MG/ML 1ML VIAL (J1170) IV PRN ×2 (20:01→23:11)
[2019-06-23] VITALS (27 sets, daily range): BP systolic 109–135; BP diastolic 69–88
[2019-06-23] MEDS: IMIPENEM/CILASTATIN 500 MG in D5W MINI-BAG PLUS 100 ML IV SCH ×4 (00:23→20:01)
[2019-06-23] MEDS: NS 1,000 ML IV SCH ×4 (02:05→22:20)
[2019-06-23] MEDS: metroNIDAZOLE 500 MG in IV 1 EA IV SCH ×3 (02:05→20:02)
[2019-06-23] MEDS: HYDROmorphone HCL 2 MG/ML 1ML VIAL (J1170) IV PRN ×6 (02:07→15:13)
[2019-06-23 04:27] LABS: HEMATOCRIT 24.6 % (42.0-52.0); MEAN CORPUSCULAR HEMOGLOBIN 28.9 pg (27.0-33.0); MEAN CORPUSCULAR HGB CONC 32.5 g/dl (32.0-36.5); MEAN CORPUSCULAR VOLUME 88.8 fl (80.0-96.0); PLATELET COUNT, AUTOMATED 997 10^3/uL (150-450); RED BLOOD COUNT 2.77 10^6/uL (4.30-6.10); WHITE BLOOD COUNT 14.9 10^3/uL (4.0-10.0)
[2019-06-23 04:46] LABS: BLOOD UREA NITROGEN 15 MG/DL (7-18); CALCIUM LEVEL 7.9 MG/DL (8.5-10.1); CARBON DIOXIDE LEVEL 27 MEQ/L (21-32); CHLORIDE LEVEL 106 MEQ/L (98-107); CREATININE FOR GFR 0.45 MG/DL (0.70-1.30); GLOMERULAR FILTRATION RATE > 60.0 (>60); GLUCOSE, FASTING 86 MG/DL (70-100); POTASSIUM SERUM 4.3 MEQ/L (3.5-5.1); SODIUM LEVEL 138 MEQ/L (136-145)
[2019-06-23 05:01] LABS: LYMPHOCYTES 9 % (16-44); MONOCYTES 3 % (0-5); NEUTROPHILS 85 % (28-66)
[2019-06-23 05:02] LABS: ANISOCYTOSIS 1+; HYPOCHROMASIA 1+; PLATELET ESTIMATE INCREASED (NORMAL)
[2019-06-23 05:03] LABS: POLYCHROMASIA 1+
[2019-06-23] MEDS: PANTOPRAZOLE 40MG INJ (PROTONIX) (C9113) IV SCH ×2 (05:25→20:01)
[2019-06-23] MEDS: HumaLOG INSULIN (NovoLOG) PER UNIT SC SCH ×3 (05:27→18:00)
[2019-06-23] MEDS ORDERED: HYDROmorphone HCL 2 MG/ML 1ML VIAL (J1170) IV PRN (08:15)
--- NOTE | 2019-06-23 08:52 | IPNPDOC ---
Text Note Date of Service The patient was seen on 06/23/19. NOTE Subjective: Is a 44-year-old male who presented to the hospital with significant abdominal pain and tenderness the reports as a pressure that is continuous and nonradiating. Patient was recently discharged from the hospital on 06/20/2019 after being hospitalized for a bowel obstruction which was found to be sigmoid colon cancer. Patient received a sigmoid colectomy with colostomy with splenic flexure takedown and a right colectomy with ileocolonic anastomosis. Patient was tolerating normal diet for reported back to the hospital on 06/22/2019 with worsening abdominal pain. Patient was found to have a pneumoperitoneum on CT scan. Patient was taken to the operating room and Dr. Reynolds who performed a resection of the ilio colonic anastomosis which was leaking and did a lavage of the abdomen due to fecal peritonitis. Patient is currently on imipenem. Patient also had C. difficile colitis during his last hospitalization and was given Flagyl by mouth. Patient continues on this today. Patient's biggest complaint today is that his mouth is very dry as he is nothing by mouth. Patient had been given moisture swabs however, he was drinking the liquid that was in the cups. Patient says that his pain is moderately well controlled however, when I spoke with him he was nearing his next dose of pain medication so he was in discomfort however, again his biggest complaint was having a very dry mouth. Objective: Vitals: (see below) General: Alert and oriented male patient who was laying in bed. Patient was gripping the size of the bed for the exam. Patient had NG tube, Arboleda catheter, and wound VAC in place. Patient did appear to be in mild to moderate distress. HEENT: Normocephalic, atraumatic, dry mucous membranes, nasogastric tube in place Cardiac: Regular rate and rhythm, no murmurs, normal S1, normal S2 Pulm: Clear to auscultation bilaterally. No wheezes, rhonchi, rales Abd: Wound VAC dressing in place over the majority of the abdomen, abdomen was soft and nondistended. Ext: No edema bilateral lower extremities Labs (see below) Images: A 1 view chest x-ray performed on 06/22/2019 was reported to show trace left basilar atelectasis suggested, nasogastric tube in satisfactory position, right central line is identified at the right thoracic inlet and crosses to the left of the superior mediastinum overlies the aortic arch, correlation is recommended as this may be a arterial position. Assessment: Patient is a 44-year-old male who presented to the hospital with worsening abdominal pain and distention who was found to have a bowel perf oration at anastomosis site from previous surgery. Patient was taken to the operating room by Dr. Reynolds. Plan 1. Bowel perforation. Patient was brought down to the operating room by Dr. Reynolds who did a resection of the ileocolonic anastomosis which had perforated. A lavage of the peritoneal cavity was performed due to fecal peritonitis. An ileostomy was created. Patient has a wound VAC in place over the abdomen. Patient remains on imipenem and Flagyl via IV. IV fluconazole has been added. S he remains nothing by mouth. [place] for Dr. Reynolds to take the patient back to the operating room later on today. Pain control per surgery. 2. C. difficile colitis, patient continues on IV metronidazole. The patient starts having output again from his ileostomy, this may be rechecked if. 3. Adenocarcinoma of the colon. Lymph nodes were negative 10. Patient will need follow-up with oncology outpatient. 4. Hyponatremia resolved. 5. Normocytic anemia. Hemoglobin appears to be at baseline 6. Thrombocytosis likely secondary to reactive radiology we'll continue to monitor 7. Alcohol dependence. Will hold Suboxone continue pain control with Dilaudid. 8. Gastrointestinal prophylaxis, patient is on Protonix. DVT prophy: Teds and sequentials Dispo: Pending continued surgical management. VS,Fishbone, I+O VS, Fishbone, I+O Laboratory Tests 06/22/19 18:58 06/23/19 03:44 Vital Signs Date Time Temp Pulse Resp B/P (MAP) Pulse Ox O2 Delivery O2 Flow Rate FiO2 06/23/19 06:00 8 15 117/77 (90) 96 Nasal Cannula 1.0 06/23/19 05:00 99.1 I&O- Last 24 Hours up to 6 AM 06/23/19 06:00 Intake Total 4750 ml Output Total 1945 ml Balance 2805 ml GME ATTESTATION GME ATTESTATION My faculty preceptor for this patient encounter was physically present during the encounter and was fully available. All aspects of the patient interview, examination, medical decision making process, and medical care plan development were reviewed and approved by the faculty preceptor. The faculty preceptor is aware and concurs with the plan as stated in the body of this note and will attest to such by his/her cosignature. ATTENDING NOTE I, Tony Lezama, have independently examined this patient and performed my own physical exam, as well as reviewed the documentation and edited where necessary. I have discussed in detail with the resident / student the findings and plan of treatment as documented by the resident / student and edited their note. I agree with their findings and treatment plan and have edited their documentation. I will continue to follow the patient during this hospital stay. DARLEEN HESTER DO Jun 23, 2019 08:52 TONY LEZAMA MD Jun 23, 2019 11:53
[2019-06-23] MEDS ORDERED: LIDOCAINE 1% MDV 20ML VIAL As Ordered ONE (11:24)
[2019-06-23] MEDS: FLUCONAZOLE 200 MG in IV 1 EA IV SCH (13:08)
[2019-06-23] MEDS ORDERED: BUPIVACAINE HCL 0.25% 30 ML VIAL As Ordered ONE ×2 (15:38→16:22)
[2019-06-23] MEDS ORDERED: dexameTHASONE 4 MG/ML 1ML VIAL (J1100) As Ordered ONE (15:54)
[2019-06-23] MEDS ORDERED: MIDAZOLAM INJ 2 MG/2 ML VIAL (J2250) As Ordered ONE (15:54)
[2019-06-23] MEDS ORDERED: fentaNYL 100 MCG/2 ML INJECTION (J3010) As Ordered ONE ×2 (15:54→18:28)
[2019-06-23] MEDS ORDERED: LIDOCAINE 2% INJ 100 MG/5 ML SDV (FOR ANES.) As Ordered ONE ×2 (15:54→16:09)
[2019-06-23] MEDS ORDERED: ONDANSETRON 4MG/2ML VIAL (J2405) As Ordered ONE (15:54)
[2019-06-23] MEDS ORDERED: ROCURONIUM BROMIDE 50 MG/5 ML VIAL As Ordered ONE (15:54)
[2019-06-23] MEDS ORDERED: propofoL 200 MG/20 ML VIAL As Ordered ONE (15:54)
--- NOTE | 2019-06-23 16:34 | REP ---
PICC line insertion under ultrasound guidance. The procedure was performed by LYNETTE Orellana, under the direct supervision of Dr. Fitzgerald. The risks and benefits of the procedure were explained to the patient and informed consent was obtained both verbally and written. Directly prior to the start of the procedure, a formal timeout was completed in the procedure room. The right medial brachial vein was localized using ultrasound guidance. The skin was prepped and draped in the sterile fashion. Using ultrasound guidance the right medial brachial vein was cannulated and a 0.018 guidewire was inserted and advanced to the SVC using serial chest x-rays as guidance. The needle was removed and a 5.5 Swedish dilator and peel-away sheath was inserted over the guidewire. A 5.5 Swedish dual lumen catheter was cut to the length of 35 cm. The dilator was removed and the catheter was inserted over the guide wire with the tip ending in the SVC. The peel-away sheath was removed and the catheter was flushed with heparinized saline as per hospital protocol. The catheter was affixed to the skin and a sterile dressing was applied. The patient tolerated the procedure well and there were no immediate complications. 0.0 minutes of fluoroscopy time was utilized for this procedure. Some fluoroscopic images are performed with last image hold technology. These images require no additional radiation. Reviewed by LYNETTE Recinos 06/23/2019 03:52 P Electronically Signed by Jarett Fitzgerald MD 06/23/2019 04:25 P
[2019-06-23] MEDS ORDERED: diphenhydrAMINE INJ 50MG/ML VIAL (J1200) IV PRN ×2 (17:30→18:45)
[2019-06-23] MEDS ORDERED: FENTANYL/BUPIVACAINE BAG 250 ML EPIDURAL SCH (17:30)
[2019-06-23] MEDS ORDERED: WALLBOXKEY XX PRN (17:30)
[2019-06-23] MEDS ORDERED: NALOXONE INJ 0.4 MG/1 ML VIAL (J2310) IV PRN ×2 (17:30→18:45)
[2019-06-23] MEDS ORDERED: ONDANSETRON 4MG/2ML VIAL (J2405) IV PRN ×2 (17:30→19:15)
[2019-06-23] MEDS ORDERED: EPIDURAL/PCA KEYS XX PRN ×2 (17:30→18:45)
[2019-06-23] MEDS ORDERED: METOCLOPRAMIDE INJ 10MG/2ML VIAL (J2765) IV PRN ×2 (17:30→19:15)
[2019-06-23] MEDS ORDERED: ACETAMINOPHEN 1000MG 100ML IV BTL (OFIRMEV) (J0131 PER 10MG) As Ordered ONE (17:55)
[2019-06-23] MEDS ORDERED: SUGAMMADEX SODIUM 500 MG/5 ML VIAL (BRIDION) As Ordered ONE (17:56)
[2019-06-23] MEDS ORDERED: FAT EMULSION IV 20% 500 ML IV SCH (18:00)
[2019-06-23] MEDS: SODIUM CHLORIDE 0.9% INJ 10 ML SYR IV SCH (18:00)
[2019-06-23] MEDS ORDERED: AMINO AC/ELECTROLYTE/DEX/CALC 2,000 ML IV SCH (18:00)
[2019-06-23] MEDS ORDERED: NALBUPHINE HCL 10 MG/ML AMP (J2300) IV PRN (18:45)
[2019-06-23] MEDS ORDERED: MORPHINE 1MG/ML IN 0.9% NACL 100ML IV BAG As Ordered ONE (18:47)
[2019-06-23] MEDS: HYDROMORPHONE HCL 0.5 MG/ 0.5 ML SYRINGE (J1170 PER 1) IV PRN ×2 (18:50→18:58)
[2019-06-23] MEDS ORDERED: HYDROMORPHONE HCL 0.5 MG/ 0.5 ML SYRINGE (J1170 PER 1) As Ordered ONE (18:58)
[2019-06-23] MEDS ORDERED: fentaNYL 100 MCG/2 ML INJECTION (J3010) IV PRN (19:15)
[2019-06-23] MEDS ORDERED: LR 1,000 ML IV SCH (19:15)
[2019-06-23] MEDS: MORPHINE 1MG/ML IN 0.9% NACL 100ML IV BAG IV PRN (19:18)
[2019-06-23] MEDS ORDERED: DEXTROSE 50% 50 ML SYRINGE IV PRN (19:45)
[2019-06-23] MEDS ORDERED: GLUCAGON FOR INJ 1 MG VIAL (J1610) SC PRN (19:45)
[2019-06-23] MEDS ORDERED: GLUCOSE 4 GM CHEW TABLET PO PRN (19:45)
[2019-06-23] MEDS ORDERED: AMINO AC/ELECTROLYTE/DEX/CALC 1,000 ML IV SCH (20:00)
[2019-06-23] MEDS ORDERED: KETOROLAC 30 MG/ML VIAL (J1885) IV ONE (22:45)
[2019-06-24] VITALS (32 sets, daily range): BP systolic 115–138; BP diastolic 59–87
[2019-06-24] MEDS: IMIPENEM/CILASTATIN 500 MG in D5W MINI-BAG PLUS 100 ML IV SCH ×5 (00:12→23:46)
[2019-06-24] MEDS: HumaLOG INSULIN (NovoLOG) PER UNIT SC SCH ×5 (00:17→23:46)
[2019-06-24] MEDS: metroNIDAZOLE 500 MG in IV 1 EA IV SCH ×3 (03:00→19:52)
[2019-06-24] MEDS ORDERED: IPRATROPIUM 0.5MG/ALBUTEROL 2.5MG INH SOL UD 3ML (DUONEB)(J7620) NEB ONE (04:30)
[2019-06-24] MEDS: SODIUM CHLORIDE 0.9% INJ 10 ML SYR IV SCH ×2 (05:45→17:52)
[2019-06-24] MEDS: PANTOPRAZOLE 40MG INJ (PROTONIX) (C9113) IV SCH ×2 (05:46→17:51)
[2019-06-24 06:22] LABS: BASO % 0.1 % (0.0-1.0); LYMPH # 1.4 10^3/uL (1.5-5.0); LYMPH % 6.9 % (24.0-44.0); MEAN CORPUSCULAR HEMOGLOBIN 28.4 pg (27.0-33.0); MEAN CORPUSCULAR HGB CONC 31.7 g/dl (32.0-36.5); MEAN CORPUSCULAR VOLUME 89.7 fl (80.0-96.0); MONO # 1.4 10^3/uL (0.0-0.8); MONO % 7.3 % (0.0-5.0); NEUTROPHILS # 16.6 10^3/uL (1.5-8.5); NEUTROPHILS % 84.5 % (36.0-66.0); PLATELET COUNT, AUTOMATED 836 10^3/uL (150-450); RED BLOOD COUNT 2.32 10^6/uL (4.30-6.10); WHITE BLOOD COUNT 19.7 10^3/uL (4.0-10.0)
[2019-06-24 06:26] LABS: HEMATOCRIT 20.8 % (42.0-52.0); HEMOGLOBIN 6.6 g/dl (13.5-17.5)
[2019-06-24 06:48] LABS: ALBUMIN 1.3 GM/DL (3.2-5.2); ALT/SGPT 11 U/L (12-78); BILIRUBIN,TOTAL 0.4 MG/DL (0.2-1.0); BLOOD UREA NITROGEN 23 MG/DL (7-18); CALCIUM LEVEL 7.4 MG/DL (8.5-10.1); CARBON DIOXIDE LEVEL 28 MEQ/L (21-32); CHLORIDE LEVEL 107 MEQ/L (98-107); GLOMERULAR FILTRATION RATE > 60.0 (>60); GLUCOSE, FASTING 110 MG/DL (70-100); POTASSIUM SERUM 4.3 MEQ/L (3.5-5.1); SODIUM LEVEL 140 MEQ/L (136-145)
--- NOTE | 2019-06-24 08:03 | IPN ---
DATE: 06/23/2019 HISTORY: The patient was readmitted yesterday for management of feculent peritonitis from an anastomotic leak at the ileocolic anastomosis from surgery done on June 07, 2019. At surgery yesterday he was found to have extensive fecal contamination throughout the abdomen. His ileocolic anastomosis was resected and a new ileostomy was created on the right. As much exudate was removed from the bowel and abdominal contents yesterday as could be. He is scheduled today for a second look laparotomy to see if there is any contamination that can be further debrided and to formally close the abdominal wall, which was left loosely approximated. Vital signs show that he has been afebrile since surgery. His pulse has generally ranged between 80 and 104. Blood pressure is good with good oxygen saturation. Intake and output show that he had 3600 in yesterday with about 1200 out, most of which was urine. PHYSICAL EXAMINATION The patient appears alert and oriented. He remains quite pale. His nasogastric tube is in place and he is draining some watery fluid consistent with him taking some water and ice orally. Heart and lung exam is unremarkable. Abdominal exam shows that the VAC dressing is in place with only a small amounts of serosanguineous fluid in the drainage container. The abdomen is flat. Laboratory studies this morning show a white count of 15, hemoglobin 8, hematocrit of 25 and a platelet count of 997,000. His differential count today shows 85% neutrophils, 3% bands, 9% lymphocytes. His chemistry profile shows a sodium of 138, potassium 4.3, chloride 106, CO2 of 27, BUN of 15, creatinine 0.45 and a glucose of 86. IMPRESSION: The patient is doing I would say almost surprisingly well following his exploratory lap yesterday for fecal spillage throughout the abdomen. He is scheduled for a second look exploratory laparotomy to see if there is any further debridement that can take place and to irrigate the abdomen to reduce contamination and close this wound. He remains on Primaxin, Flagyl and Diflucan. PLAN: He will have a PICC line placed today so that we can begin total parenteral nutrition. It may be quite some time before he is able to tolerate an oral diet again. He will continue on his current antibiotics. His NG tube will remain in place. We had a long discussion and he is adamant that he wants to be able to take some ice chips and not just a few for comfort. He has been getting by fairly well with his Dilaudid at relatively high doses and the dosing interval was shortened to every [address] Lezama. We will consider changing his medications to a [employer]MENT [employer] after his repeat surgery today. Once his abdomen is more formally closed, we will allow him out of bed and start working on mobilization. GAUTAM
[2019-06-24] MEDS: ENOXAPARIN 40 MG/0.4 ML SYRINGE (J1650) SC SCH (09:00)
--- NOTE | 2019-06-24 10:05 | RO ---
DATE OF PROCEDURE: 06/22/2019 PREOPERATIVE DIAGNOSIS: Perforated viscus. POSTOPERATIVE DIAGNOSIS: Ileocolonic anastomotic leak with diffuse fecal peritonitis. PROCEDURES PERFORMED: 1. Exploratory laparotomy. 2. Debridement of peritonitis. 3. Resection of ileocolonic anastomosis. 4. Creation of ileostomy. 5. Insertion of right internal jugular central venous line. SURGEON: Dr. Reynolds AESTHESIA: General. INDICATIONS FOR PROCEDURE: The patient is a 44-year-old man who is 15 days postop from exploratory laparotomy and a sigmoid colectomy and colostomy and a right hemicolectomy with ileocolonic anastomosis for an obstructing sigmoid cancer. He had been discharged home on June 20 and on the noted some upper abdominal pain. He noted that his colostomy output ceased and he had worsening abdominal distension and pain. He presented to the ER where a CT scan showed a large amount of free air and fluid. He is now for exploratory laparotomy. OPERATIVE PROCEDURE: The patient was brought to the operating room and placed on the table in a supine position. Teds and sequentials were applied and a nasogastric tube was already in placed. TEDS and sequentials were applied. A nasogastric tube was already in place. He was placed under general endotracheal anesthesia. A Arboleda catheter was inserted. The patients colostomy bag was removed and the area was prepped with Betadine and the stoma was then covered with a gauze held in place with an OpSite. The remaining abdomen was then prepped and draped in a sterile fashion. Initial incision was in the upper end of his aches his recent incision and extending slightly higher into the upper abdomen. The incision was perhaps 10-12 cm initially. This was deepened through his underlying fascial sutures which were cut and removed. The peritoneum was opened. On opening the abdomen and a large pole of feculent debris was entered. The suction was used to remove some of this but there was some semi solid stool and food debris clogging the suction. The incision was extended through the full length of the initial incision and then extended further inferiorly to gain better exposure into longer area of his preexisting 2-week-old scar. Several lap pads were used to remove chunks of debris from the abdomen. The bed of the wound appeared to be made up of matted loops of small bowel in the front wall of the stomach and the pool of stool extended all the way into the left upper quadrant along the surface of the stomach to the diaphragm. Once the largest amount of the solid material was removed. The area was copiously irrigated. The debris extended to the right just about to the lateral abdominal wall and then inferiorly across loops of bowel down into the pelvis. This entire area was coated in a thick layer of exudate and debris. The abdomen was irrigated with copious amounts of warm saline irrigation. As each area was cleared of debris I removed as much as I could of the coating of exudate. In areas, this was readily achieved. For instance, on the surface of the liver and the lateral abdominal wall I could use the tip of the suction to gently scrape away and remove the layer of exudate nearly completely. Once the abdomen had been completely cleared of solid debris and had been irrigated several times. I started to break apart some of the underlying adhesions between loops of bowel to try to identify the source of the leak. It readily became apparent that there was stool oozing from the right posterior aspect of this large cavity. As this was investigated it was clear that this represented a breakdown in the ileocolonic anastomosis staple line. Small bowel was freed by breaking apart connections by blunt finger dissection. The colon was identified and some attachments to surrounding structures were also broken apart by finger dissection. The ileum was transected with a linear cutter 55 and the colon was transected just distal to the perforation using two loads of a 75 mm stapler with green staple loads. This failed anastomosis was passed off as a specimen. With the flow of stool now stopped it was possible to further irrigate the abdomen and clear any remaining debris. I broke apart all of the attachments of the small bowel and freed this completely. Then using a moist lap pad, the exudate on the small bowel was removed as thoroughly as possible through the length of the small bowel. The pelvis was coated as well with exudate and this was removed as thoroughly as possible and irrigated multiple times. The rectal stump was identified and appeared intact. The stomach was debrided of a large amount of exudate coating the anterior surface. Once everything had been debrided as much as possible, I elected to proceed with end ileostomy. An opening was created through the skin in the right side of the abdomen just above the level of the umbilicus. The fascia was incised longitudinally. The end of the small bowel was delivered through the abdominal wall without difficulty, given the thinness of his abdominal wall. Care was taken not to twist the small bowel. The abdomen was irrigated a final time and the irrigation was removed as thoroughly as possible. I elected to close the abdomen loosely and return tomorrow for a second look and reirrigation and debridement. The ileostomy was matured by opening the end of the ileum and everting the stoma and then suturing this in place with multiple 3-0 Vicryl sutures. The abdominal fascia was then loosely approximated with approximately eight simple sutures of #1 Vicryl, taking large bites of the fascia and portions of the muscle. The skin was left open. The ostomy appliances were applied to the colostomy and the new ileostomy. A wound vac dressing was applied along the midline and the occlusive bandage was placed over the entire abdomen including the ostomy appliances for simplicity. The vac was activated and there was an excellent seal. The stomas both appeared pink and viable. Once the abdomen was completely dressed. I changed gown and gloves. The right neck was prepped and draped sterilely. Using an ultrasound the right internal jugular vein was identified. The site was marked and a needle was inserted through the skin with ready return of blood. The guidewire was passed and the skin was nicked and the dilator passed. The triple-lumen catheter was then inserted over the guidewire. Blood aspirated readily from all ports and these were then flushed with saline and capped. The catheter was sutured to the skin with two 2-0 silk sutures using the suture weighing. The site was dressed with a chlorhexidine gluconate OpSite. The patient tolerated the procedure well. He was then awakened in the operating room, extubated and moved to the recovery room in stable condition. GAUTAM
--- NOTE | 2019-06-24 10:47 | IPNPDOC ---
Text Note Date of Service The patient was seen on 06/24/19. NOTE Subjective: Patient is a 44-year-old male presented to the hospital significant abdominal pain and tenderness. Patient was brought to the operating room by Dr. Reynolds performed a resection of the leaking anastomosis with creation of ileostomy and debridement and lavage of the abdomen. Patient was brought back to the operating room last evening for another lavage and debridement with formal closure of the abdomen. Patient is doing much better today. He is been started on liquid diet. Patient will also be mobilized today. Patient's hemoglobin was 6.4 and is been transfused 2 units. In talking with the patient, his pain is controlled and he is feeling much better. Review of systems General: Patient denies fevers HEENT: Patient denies headaches Cardiovascular: Patient denies chest pain Respiratory: Patient denies shortness of breath, cough GI: Patient endorses abdominal pain that is been controlled. Patient is having output from his ileostomy Extremities: Patient denies swelling or pain in extremities Objective: Vitals: (see below) General: Alert and oriented male patient who was laying in the bed in the ICU with nasogastric tube in place. Patient does not appear to be in any acute distress. HEENT: Normocephalic, atraumatic, moist mucous membranes. Neck: No lymphadenopathy or thyromegaly Cardiac: Regular rate and rhythm, no murmurs, normal S1, normal S2 Pulm: Clear to auscultation bilaterally. No wheezes, rhonchi, rales Abd: Incisions are clean and dry with dressing intact over them. LV was soft and nondistended Ext: No edema bilateral lower extremities Labs (see below) Images: No new imaging is performed Assessment: Patient is a 44-year-old male presented to the hospital with worsening abdominal pain and distention was found to have bowel perforation at anastomosis site from previous surgery. Patient is been taken to the operating room twice by Dr. Reynolds. Plan 1. Bowel perforation. Patient brought the operating room twice by Dr. Reynolds and is doing much better. He'll continue with imipenem, Flagyl, and IV fluconazole. Patient's diet will be advanced per Dr. Reynolds's orders. Patient remains an NG tube in place is on TPN. Patient currently has ice chips and apple juice as diet. 2. C. difficile colitis, patient continues on IV metronidazole from his previous hospitalization. 3. Adenocarcinoma of the colon. Lymph nodes were negative 10. Patient will need follow-up with oncology outpatient. 4. Hyponatremia, resolved. 5. Normocytic anemia. Hemoglobin appears to be at baseline. 6. Thrombocytosis. This may be reactive in nature. This has improved but we will continue to monitor. 7. Opiate dependence. We will hold Suboxone. Continue pain control with FIELD AUTOMOBILE ADJUSTER morphine pump 8. Gastrointestinal prophylaxis. Protonix DVT prophy: Teds and sequentials Dispo: Pending continue surgical management, advancement of diet, and physical therapy. Attending: Patient seen and examined independently. Agree with resident's note. VS,Fishbone, I+O VS, Fishbone, I+O Laboratory Tests 06/24/19 05:50 Vital Signs Date Time Temp Pulse Resp B/P (MAP) Pulse Ox O2 Delivery O2 Flow Rate FiO2 06/24/19 09:45 90 20 119/71 95 Room Air 06/24/19 09:16 98.6 06/24/19 09:03 1.0 I&O- Last 24 Hours up to 6 AM 06/24/19 06:00 Intake Total 2065 ml Output Total 6085 ml Balance -4020 ml DARLEEN HESTER DO Jun 24, 2019 10:47 SHERRY MCINTOSH MD Jul 07, 2019 22:15
[2019-06-24] MEDS: FLUCONAZOLE 200 MG in IV 1 EA IV SCH (12:46)
--- NOTE | 2019-06-24 13:51 | RO ---
DATE OF PROCEDURE: 06/23/2019 PREOPERATIVE DIAGNOSIS: Fecal peritonitis for second look exploratory laparotomy. POSTOPERATIVE DIAGNOSIS: Fecal peritonitis for second look exploratory laparotomy. PROCEDURE PERFORMED: Exploratory laparotomy with irrigation and debridement of exudate with closure of midline wound. SURGEON: Dr. Korey Reynolds FEDERAL APPELLATE CLERK: Otf Zaldivar MS-III ANESTHESIA: General. INDICATIONS FOR PROCEDURE: The patient is a 44-year-old man who underwent exploratory laparotomy on June 22 for a leaking ileocolonic anastomosis following surgery 15 days earlier. He had a fecal contamination throughout the abdomen with extensive peritonitis. His wound had been closed loosely at the end of that procedure and he is now for exploration with further debridement as necessary and irrigation of the abdomen with closure of his abdominal incision. OPERATIVE PROCEDURE The patient was brought to the operating room and placed on the operating table in a supine position. The nasogastric tube and Arboleda catheter were in place. TEDs and sequentials were utilized. He was placed under general endotracheal anesthesia. An occlusive VAC dressing covering the entire abdomen and his two ostomy site was then removed. The abdomen was then prepped with Betadine prepped and draped sterilely. His skin incision was not closed but the fascia was closed loosely with interrupted sutures of #1 Vicryl. The sutures were removed and as the fascia was opened, there was release of some turbid light yellow fluid. This was suctioned with a pool sucker. Then using blunt finger dissection the abdominal wall was lifted away from the underlying bowel and the bowel loops were all and the abdomen washed thoroughly with warm saline. In some areas there was some gelatinous exudate identified on and between loops of bowel. There was some patchy yellowish exudate coating portions of the stomach and the small bowel. This had been debrided as thoroughly as possible on the . There were a few small pockets of turbid fluid particularly in the left upper quadrant and these areas were all irrigated with sterile saline until clear. I attempted to debride some material off of the stomach and off from several small loops of bowel but without any great success. The stapled end of the transverse colon was identified near the new ileostomy in the right upper quadrant and this was moved anterior to the small bowel running up to the ileostomy to make identification easier in the future for closure of his ileostomy. The abdomen was thoroughly irrigated including down the pelvis and up under both sides of the diaphragm. There did not appear to be any additional debridement that could take place. There were no areas of perforation. The small bowel was then returned to the abdomen. I elected not to place any drains as I felt these were unlikely to be effective at preventing abscesses if these were to form. The fascia was then closed with interrupted simple sutures of #1 Vicryl. Skin was closed loosely with skin nelida. New ostomy appliances were applied to the colostomy in the left upper quadrant and the ileostomy in the right upper quadrant. A bulky bandage was applied along the midline. The patient tolerated the procedure well without apparent complication. He was awakened in the operating room, extubated and moved to the recovery room in stable condition. GAUTAM
[2019-06-24] MEDS: MORPHINE 1MG/ML IN 0.9% NACL 100ML IV BAG IV PRN (16:51)
[2019-06-24 16:54] LABS: HEMATOCRIT 26.4 % (42.0-52.0)
[2019-06-24 17:01] LABS: HEMOGLOBIN 8.7 g/dl (13.5-17.5)
[2019-06-24] MEDS: NS 1,000 ML IV SCH (17:52)
[2019-06-24] MEDS ORDERED: AMINO AC/ELECTROLYTE/DEX/CALC 2,000 ML IV SCH (18:00)
[2019-06-24] MEDS ORDERED: FAT EMULSION IV 20% 500 ML IV SCH (18:00)
--- NOTE | 2019-06-24 22:31 | IPN ---
DATE: 06/24/2019 HISTORY The patient is now postop day #2 from exploratory laparotomy for an anastomotic leak with diffuse fecal peritonitis and day one from a second look laparotomy with debridement and irrigation. He has done very well actually overnight. He has been uncooperative with limiting his oral intake. He had asked for sips of fluid or ice chips and these were allowed but he has been drinking unregulated amounts of water and ice and so nasogastric outputs are markedly inflated. He refuses to comply with recommendations in this regard. He has also declined Lovenox for DVT prophylaxis and has refused some of his insulin coverage based on his sliding scale for his blood sugars. He was started on TPN last evening after surgery and he appears to have tolerated this fairly well. Vital signs: Show that he has been afebrile since surgery. His pulse has remained in the 80s generally. Blood pressure is good. Intake and output shows that yesterday he had 2500 in with 3900 out but again he has had 2265 out of his NG tube yesterday and the Lord only knows how much he actually took in. He has been using his WATER SAFETY INSTRUCTOR quite regularly, essentially to the maximum allowed amount but seems to have been fairly comfortable with this. PHYSICAL EXAMINATION The patient is awake and seems alert. His sclerae are anicteric. He does appear somewhat pale. Heart exam shows a regular rhythm and the lungs are clear. The abdomen is flat. There is a small amount of stool at the opening of the colostomy on the left and a small amount of liquid material in the ileostomy bag on the right. His dressing along the midline is clean and dry. He does have a few bowel sounds present in the lower abdomen. LABS: Laboratory studies today show a white count of 20, hemoglobin of 7, hematocrit of 21 and a platelet count of 836,000. Differential count shows 84% neutrophils, 7% lymphocytes, 7% monocytes. Chemistry profile shows a normal set of electrolytes with BUN of 23, creatinine 0.4, glucose of 110. Liver function tests are normal with a total protein of 4.0 and albumin of 1.3. His fingerstick blood sugars have ranged between 114 and 186. IMPRESSION The patient overall is doing quite well from his exploratory laparotomy for a leaking ileocolic anastomosis with diffuse fecal peritonitis. He had a second look laparotomy yesterday and had still significant contamination which could not be improved upon. His colostomy and ileostomy both have a small amount out today. His NG tube is working well but he is drinking lots of fluid and so it is impossible to quantitate his actual output. His Arboleda catheter had been working well and he requested removal of this today and I am in agreement with this. He will continue his WATER SAFETY INSTRUCTOR use, though hopefully as he improves and his discomfort diminishes we will be able to back off on the amount of morphine utilized. He will remain on his Primaxin and Flagyl and Diflucan for now and these will be continued for a therapeutic course. PLAN The patient's Arboleda will be removed. I counseled him again that it would be better and probably safer to stop drinking as much fluid as he is and he continues to minimize the effects this can have on his care. The hospitalist has ordered 2 units of blood and I think this is appropriate based on his low hemoglobin and hematocrit. We will continue the TPN for now as he is likely to require intravenous nutrition for some time while we watch for evidence of abscess formation. MTDD
[2019-06-25] MEDS: metroNIDAZOLE 500 MG in IV 1 EA IV SCH ×3 (03:48→19:34)
[2019-06-25] MEDS: MORPHINE 1MG/ML IN 0.9% NACL 100ML IV BAG IV PRN ×2 (03:56→13:10)
[2019-06-25 04:07] LABS: HEMATOCRIT 27.5 % (42.0-52.0); HEMOGLOBIN 9.1 g/dl (13.5-17.5); LYMPH # 1.5 10^3/uL (1.5-5.0); LYMPH % 7.7 % (24.0-44.0); MEAN CORPUSCULAR HEMOGLOBIN 28.7 pg (27.0-33.0); MEAN CORPUSCULAR HGB CONC 33.1 g/dl (32.0-36.5); MEAN CORPUSCULAR VOLUME 86.8 fl (80.0-96.0); MONO # 1.8 10^3/uL (0.0-0.8); MONO % 8.8 % (0.0-5.0); NEUTROPHILS # 16.6 10^3/uL (1.5-8.5); NEUTROPHILS % 82.7 % (36.0-66.0); PLATELET COUNT, AUTOMATED 805 10^3/uL (150-450); RED BLOOD COUNT 3.17 10^6/uL (4.30-6.10); WHITE BLOOD COUNT 20.1 10^3/uL (4.0-10.0)
[2019-06-25 04:42] LABS: BLOOD UREA NITROGEN 11 MG/DL (7-18); CARBON DIOXIDE LEVEL 30 MEQ/L (21-32); CHLORIDE LEVEL 102 MEQ/L (98-107); CREATININE FOR GFR 0.33 MG/DL (0.70-1.30); GLOMERULAR FILTRATION RATE > 60.0 (>60); GLUCOSE, FASTING 107 MG/DL (70-100); MAGNESIUM LEVEL 1.7 MG/DL (1.8-2.4); POTASSIUM SERUM 3.7 MEQ/L (3.5-5.1); SODIUM LEVEL 137 MEQ/L (136-145)
[2019-06-25] MEDS: HumaLOG INSULIN (NovoLOG) PER UNIT SC SCH ×3 (05:25→18:17)
[2019-06-25] MEDS: SODIUM CHLORIDE 0.9% INJ 10 ML SYR IV SCH ×2 (05:31→18:17)
[2019-06-25] MEDS: PANTOPRAZOLE 40MG INJ (PROTONIX) (C9113) IV SCH ×2 (05:31→18:16)
[2019-06-25] MEDS: IMIPENEM/CILASTATIN 500 MG in D5W MINI-BAG PLUS 100 ML IV SCH ×3 (05:31→18:23)
[2019-06-25] MEDS: NS 1,000 ML IV SCH ×2 (06:13→13:23)
[2019-06-25 06:19] VITALS: BP 128/81
[2019-06-25 08:14] VITALS: BP 136/81
[2019-06-25] MEDS ORDERED: MAG SULF 1GM/100ML (MAG RUN) 1 GM in IV 1 EA IV ONE (08:15)
[2019-06-25] MEDS: ENOXAPARIN 40 MG/0.4 ML SYRINGE (J1650) SC SCH (09:00)
--- NOTE | 2019-06-25 09:54 | REP ---
Clinical: Postoperative fever. Technique: Upright view of the chest with supine and upright views of the abdomen and pelvis. Findings: Upright view of the chest demonstrates minimal bibasilar atelectasis and small pleural effusions. Nasogastric tube extends below left hemidiaphragm. Bowel gas pattern demonstrates moderately dilated air filled loops of small bowel in the lower abdomen/pelvis. Skeletal structures are intact. Impression: 1. Mild bibasilar atelectasis and small pleural effusions. 2. The bowel gas pattern as described above is relatively nonspecific given the patient's recent postoperative state. Electronically Signed by Marco Coon MD 06/25/2019 09:33 A
--- NOTE | 2019-06-25 10:48 | IPNPDOC ---
Text Note Date of Service The patient was seen on 06/25/19. NOTE Subjective: Patient is a 44-year-old male presented to the hospital significant abdominal pain and tenderness. Patient was brought to the operating room for a bowel resection and anastomosis site from previous surgery. Patient is doing well. Patient did have some borderline high temperatures but did not have a temperature recorded above 100.4F. Patient is getting TPN and is still on a diet of sips of apple juice and ice chips. Dr. Reynolds is following the patient. Patient says his pain is somewhat worse today. Patient has a BUSINESS ADMINISTRATION PROFESSOR morphine pump in place. Patient is doing otherwise well. Review of systems General: Patient denies fevers HEENT: Patient denies headaches Cardiovascular: Patient denies chest pain Respiratory: Patient denies shortness of breath, cough GI: Patient endorses abdominal pain is slightly worse than it was yesterday. He has output from his ileostomy. : Patient denies pain or difficulty with urination Extremities: Patient denies swelling or pain in extremities Objective: Vitals: (see below) General: Alert and oriented male patient who was sitting in his hospital bed when I walked into his room. Patient had a nasogastric tube in place. Patient does not appear to be in any acute distress. HEENT: Normocephalic, atraumatic, moist mucous membranes. Neck: No lymphadenopathy or thyromegaly Cardiac: Regular rate and rhythm, no murmurs, normal S1, normal S2 Pulm: Clear to auscultation bilaterally. No wheezes, rhonchi, rales Abd: Soft, tenderness to palpation especially around incision sites, abdomen was nondistended. Dressings were clean and there is no erythema surrounding incisions. Ext: No edema bilateral lower extremities Labs (see below) Images: An abdominal flat/upright with PA of the chest x-ray was performed on 06/25/2019 and was reported to show mild bibasilar atelectasis and small pleural effusions. The bowel gas pattern demonstrates moderately dilated air-filled loops of small bowel in the lower abdomen/pelvis which is relatively nonspecific given the patient's recent postoperative state. Assessment: Patient is a 44-year-old male presents to the hospital with worsening abdominal pain and distention who was found to have a bowel perforation at anastomosis site from previous surgery. Patient is status post [address] Reynolds. Plan 1. Bowel perforation. Patient was brought to the operating room twice by Dr. Reynolds is doing much better today. Patient is currently on imipenem, Flagyl, and IV fluconazole. Patient's diet will be advanced per Dr. Reynolds's orders. He is currently on ice chips with sips of apple juice. Patient has an NG tube in place and is also on TPN per Dr. Reynolds. 2. History of C. difficile colitis. Patient was diagnosed with this during his previous admission. He will continue on IV metronidazole. 3. Adenocarcinoma of the colon. Lymph nodes were negative 10 from surgery at previous admission earlier in June 2019. Patient will need outpatient oncology follow-up. 4. Hyponatremia, resolved. 5. Normocytic anemia. Patient received 2 units of packed red blood cells yester day and is currently back to his baseline. 6. thrombocytosis. This seems to be reactive in nature. It is improving and we will continue to monitor. 7. Leukocytosis. This may also be reactive in nature to his surgeries as well as fecal peritonitis. Patient remains on IV imipenem, Flagyl, and fluconazole. We will continue to monitor the patient's temperature as well as hemodynamic stability. 8. Opiate dependence. Suboxone on is on hold and patient will continue BUSINESS ADMINISTRATION PROFESSOR morphine pump. 9. Gastrointestinal prophylaxis. Continue with IV Protonix. DVT prophy: Patient had been refusing Lovenox however, when I gave him the option of sequential compression devices or Lovenox, patient decided she will take the Lovenox. Dispo: Pending continue surgical management, advancement of diet, and physical therapy. Attending: Patient seen and examined independently. Agree with resident's note. VS,Yoko, I+O VS, Yoko, I+O Laboratory Tests 06/24/19 16:43 06/25/19 03:50 Vital Signs Date Time Temp Pulse Resp B/P (MAP) Pulse Ox O2 Delivery O2 Flow Rate FiO2 06/25/19 08:14 100.0 16 136/81 (99) 94 Room Air 06/25/19 06:19 94 06/24/19 09:03 1.0 I&O- Last 24 Hours up to 6 AM 06/25/19 06:00 Intake Total 7090 ml Output Total 3110 ml Balance 3980 ml DARLEEN HESTER DO Jun 25, 2019 10:48 SHERRY MCINTOSH MD Jul 07, 2019 22:17
[2019-06-25 13:26] VITALS: BP 126/79
[2019-06-25] MEDS: FLUCONAZOLE 200 MG in IV 1 EA IV SCH (14:33)
[2019-06-25 14:50] VITALS: BP 128/89
[2019-06-25 18:00] VITALS: BP 126/79
[2019-06-25] MEDS ORDERED: HumaLOG INSULIN (NovoLOG) PER UNIT SC SCH (18:00)
[2019-06-25] MEDS ORDERED: MULTIVITAMIN -ADULT INJECTION 10 ML, CR/CU/SE/MN/ZN INJ 1 ML in AMINO AC/ELECTROLYTE/DE... IV SCH (18:00)
[2019-06-25] MEDS ORDERED: FAT EMULSION IV 20% 500 ML IV SCH (18:00)
[2019-06-25] MEDS: KETOROLAC 30 MG/ML VIAL (J1885) IV SCH (18:17)
[2019-06-25 22:00] VITALS: BP 123/84
[2019-06-26] MEDS: KETOROLAC 30 MG/ML VIAL (J1885) IV SCH ×4 (00:12→17:24)
[2019-06-26] MEDS: IMIPENEM/CILASTATIN 500 MG in D5W MINI-BAG PLUS 100 ML IV SCH ×4 (00:12→17:22)
[2019-06-26] MEDS: HumaLOG INSULIN (NovoLOG) PER UNIT SC SCH ×4 (00:13→18:39)
[2019-06-26] MEDS: SODIUM CHLORIDE 0.9% INJ 10 ML SYR IV PRN ×2 (01:47→20:05)
[2019-06-26] MEDS: metroNIDAZOLE 500 MG in IV 1 EA IV SCH ×3 (03:29→18:38)
[2019-06-26 05:15] VITALS: BP 131/87
[2019-06-26] MEDS: MORPHINE 1MG/ML IN 0.9% NACL 100ML IV BAG IV PRN ×2 (05:55→20:07)
[2019-06-26] MEDS: PANTOPRAZOLE 40MG INJ (PROTONIX) (C9113) IV SCH ×2 (06:13→18:38)
[2019-06-26] MEDS: SODIUM CHLORIDE 0.9% INJ 10 ML SYR IV SCH ×2 (06:14→17:24)
[2019-06-26 06:48] LABS: BASO % 0.1 % (0.0-1.0); HEMATOCRIT 28.2 % (42.0-52.0); HEMOGLOBIN 9.5 g/dl (13.5-17.5); LYMPH # 1.1 10^3/uL (1.5-5.0); LYMPH % 5.4 % (24.0-44.0); MEAN CORPUSCULAR HEMOGLOBIN 28.8 pg (27.0-33.0); MEAN CORPUSCULAR HGB CONC 33.7 g/dl (32.0-36.5); MEAN CORPUSCULAR VOLUME 85.5 fl (80.0-96.0); MONO # 1.9 10^3/uL (0.0-0.8); NEUTROPHILS # 17.6 10^3/uL (1.5-8.5); NEUTROPHILS % 84.4 % (36.0-66.0); PLATELET COUNT, AUTOMATED 826 10^3/uL (150-450); WHITE BLOOD COUNT 20.9 10^3/uL (4.0-10.0)
[2019-06-26 07:22] LABS: BLOOD UREA NITROGEN 9 MG/DL (7-18); CALCIUM LEVEL 7.7 MG/DL (8.5-10.1); CARBON DIOXIDE LEVEL 30 MEQ/L (21-32); CHLORIDE LEVEL 97 MEQ/L (98-107); CREATININE FOR GFR 0.31 MG/DL (0.70-1.30); GLOMERULAR FILTRATION RATE > 60.0 (>60); GLUCOSE, FASTING 108 MG/DL (70-100); MAGNESIUM LEVEL 1.8 MG/DL (1.8-2.4); POTASSIUM SERUM 2.7 MEQ/L (3.5-5.1); SODIUM LEVEL 133 MEQ/L (136-145)
[2019-06-26] MEDS ORDERED: KCL 20MEQ IN 100ML SWI (KRUN) 20 MEQ in IV 1 EA IV SCH ×2 (07:45)
[2019-06-26] MEDS: KCL 10MEQ/100ML SWI (KRUN) 10 MEQ in IV 1 EA IV SCH ×4 (07:53→14:31)
[2019-06-26] MEDS: ENOXAPARIN 40 MG/0.4 ML SYRINGE (J1650) SC SCH (08:55)
--- NOTE | 2019-06-26 10:23 | IPN ---
DATE: 06/25/2019 HISTORY: The patient is now postop day 3 from exploratory laparotomy for a ileocolic anastomotic perforation with diffuse fecal peritonitis and day 2 from a second look exploratory laparotomy with irrigation and debridement. He has been moved out of the intensive care unit. He is now on the [address] floor. He has continued to use the SUPERVISOR PUMPING approximately to the maximum dose over the last 24 hours. He is using approximately 10 mg of morphine per hour. His NG tube remains in place and the output is brisk. He has been taking a lot of oral fluids against my recommendations and orders. His Arboleda catheter was removed previously and he is voiding well. He remains on antibiotics with Diflucan, imipenem and Flagyl. Vital signs show that he has had a T-max of 100.8 degrees this afternoon. His pulse has remained in the 90s generally. Blood pressure is good and his room air oxygen saturation is also good. Intake and output show that yesterday he had 6460 recorded in with 4500 recorded out. His total IV intake is recorded as 4500, but this seems excessive. He did receive 2 units of packed red blood cells yesterday. He is on total parenteral nutrition (TPN). His urine output is recorded yesterday as 1265. PHYSICAL EXAMINATION: The patient is lying on the hospital bed looking fairly comfortable. The NG tube is in place. His color is good. He has no scleral icterus. Heart exam shows a regular rhythm of about 90-100. The lungs show good bilateral breath sounds. The abdomen is flat. He does have a few bowel sounds, but they are faint. His midline incision appears clean and dry. The left ostomy bag is empty and the right bag has some air and a small amount of liquid greenish brown or yellowish brown stool. Laboratory studies today include a CBC showing a white count of 20,000 with a differential showing 83% neutrophils, 8% lymphocytes and 9% monocytes. Hemoglobin is 9 with hematocrit of 28 and a platelet count of 805,000. His chemistry profile shows a sodium of 137, potassium 3.7, chloride 102, CO2 of 30, BUN of 11, creatinine 0.3 and a glucose of 107. His fingerstick blood sugars have been running in the low 100s, between of 114 and 131 over the last 24 hours. IMPRESSION: The patient is doing quite well following his surgery. His urine output is good and he has shown no signs of sepsis. His white count is up as would be anticipated at this point and his platelet count is coming down nicely. He is on total parenteral nutrition now at a reasonable rate. He continues to drink a large amount of water and ice chips which makes monitoring his NG output impossible. He does seem to have a small amount of gas and stool out of his ileostomy. I did obtain a KUB today along with a chest x-ray that shows a small pleural effusion on the left, but also some air in the small bowel loops in the lower abdomen. PLAN: The patient will continue on all of his current antibiotics and TPN and pain medications. I will also start him on some Toradol routinely 30 mg IV every 6 hours and see if this will help him to reduce his necessary dose of morphine. We will continue to monitor the output from his ileostomy in order to try to select the appropriate time to discontinue his NG tube and let him actually try some authorized liquids. MTDD
--- NOTE | 2019-06-26 10:31 | IPNPDOC ---
Text Note Date of Service The patient was seen on 06/26/19. NOTE Subjective: Patient is a 44-year-old male presented to the hospital with sign ificant abdominal pain and tenderness. Patient is brought to the operating room for bowel resection of the anastomosis site from her previous surgery. Patient is doing well. Patient is getting TPN. Patient says his pain is better controlled with Toradol. Patient is doing well. Review of systems General: Patient denies fevers HEENT: Patient denies headaches Cardiovascular: Patient denies chest pain Respiratory: Patient denies shortness of breath, cough GI: Patient endorses abdominal pain. Patient has been having output from his ileostomy. : Patient denies pain or difficulty with urination Extremities: Patient denies swelling or pain in extremities Objective: Vitals: (see below) General: Alert and oriented male patient who was sitting in his hospital bed when I walked in from. Patient has nasogastric tube in place. Patient does not appear to be in any acute distress. HEENT: Normocephalic, atraumatic, moist mucous membranes. Cardiac: Regular rate and rhythm, no murmurs, normal S1, normal S2 Pulm: Clear to auscultation bilaterally. No wheezes, rhonchi, rales Abd: Soft, tenderness to palpation of the abdomen around the incision sites, abdomen is nondistended. Dressings were clean there is no erythema surrounding incisions. Ext: No edema bilateral lower extremities Labs (see below) Images: No new imaging is been performed. Assessment: Patient is a 44-year-old male presents the hospital with worsening abdominal pain and distention was found to have a bowel perforation at cait stomosis site from previous surgery. Patient is status post [address] Reynolds and is postop day 3. Plan 1. Bowel perforation. Patient was brought to the operating room twice by Dr. Rodolfo wilcox and is doing much better today. Patient remains on imipenem, Flagyl, and fluconazole. Patient's diet will be advanced per Dr. Reynolds's orders. He is currently on ice chips and sips of apple juice. Patient has an NG tube in place and is also on TPN. 2. Hypokalemia. Patient's potassium level was 2.7 today. Patient is getting multiple doses of IV potassium. We will recheck BMP this evening. 3. History of C. difficile colitis. Patient was diagnosed with with this during his admission. Continue IV metronidazole. 4. Adenocarcinoma of the colon. Lymph nodes were negative 10 surgery during his last admission in June 2019. Patient will need outpatient follow-up with oncology. 5. Hyponatremia, mild. We'll continue to monitor. 6. Normocytic anemia. Patient received 2 units of packed red blood cells 2 days ago and is currently back at baseline. 7. Thrombocytosis. Patient's platelet count is at 826 today. We will continue to monitor. 8. Leukocytosis. Patient's white blood cell count appears to be plateauing and we will continue to monitor. 9. Opiate dependence. Suboxone is on hold and patient will continue SECURITY OFFICERS AND GUARDS pump morphine. Patient also has Toradol. 10. Gastrointestinal prophylaxis. Continue with IV Protonix. DVT prophy: Lovenox Dispo: Pending advancement of diet, continue surgical management, and physical therapy. Attending: Patient seen and examined independently. Agree with resident's note. VS,Fishbone, I+O VS, Fishbone, I+O Laboratory Tests 06/26/19 06:06 Vital Signs Date Time Temp Pulse Resp B/P (MAP) Pulse Ox O2 Delivery O2 Flow Rate FiO2 06/26/19 05:15 100.3 103 20 131/87 (102) 93 Room Air 06/24/19 09:03 1.0 I&O- Last 24 Hours up to 6 AM 06/26/19 06:00 Intake Total 4290 ml Output Total 5605 ml Balance -1315 ml DARLEEN HESTER DO Jun 26, 2019 10:31 SHERRY MCINTOSH MD Jul 07, 2019 22:18
[2019-06-26 11:45] VITALS: BP 129/87
[2019-06-26 14:00] VITALS: BP 124/75
[2019-06-26] MEDS: FLUCONAZOLE 200 MG in IV 1 EA IV SCH (16:02)
[2019-06-26 18:00] VITALS: BP 120/70
[2019-06-26] MEDS ORDERED: AMINO AC/ELECTROLYTE/DEX/CALC 2,000 ML IV SCH (18:00)
[2019-06-26] MEDS ORDERED: HumaLOG INSULIN (NovoLOG) PER UNIT SC SCH (18:00)
[2019-06-26] MEDS ORDERED: FAT EMULSION IV 20% 500 ML IV SCH (18:00)
[2019-06-26 18:24] LABS: BLOOD UREA NITROGEN 10 MG/DL (7-18); CALCIUM LEVEL 7.7 MG/DL (8.5-10.1); CARBON DIOXIDE LEVEL 33 MEQ/L (21-32); CHLORIDE LEVEL 98 MEQ/L (98-107); GLOMERULAR FILTRATION RATE > 60.0 (>60); GLUCOSE, FASTING 107 MG/DL (70-100); POTASSIUM SERUM 3.2 MEQ/L (3.5-5.1); SODIUM LEVEL 134 MEQ/L (136-145)
[2019-06-26] MEDS ORDERED: KCL 10MEQ/100ML SWI (KRUN) 10 MEQ in IV 1 EA IV ONE ×2 (19:30→22:30)
--- NOTE | 2019-06-26 20:51 | IPN ---
DATE: 06/26/2019 HISTORY: Patient is day four from exploratory laparotomy and day three from a second look laparotomy for a perforated ileocolonic anastomosis and diffuse fecal peritonitis. He is generally doing quite well. He remains on antibiotics, total parenteral nutrition (TPN), and a patient-controlled analgesia (QUILL BUNCHER AND SORTER). He reports he feels much better today since we started the Toradol yesterday. He has actually gotten some sleep and has cut back on his morphine use significantly. Vital signs: Show the patient's maximum temperature over the last 24 hours was 100.8 degrees. Most recently he was 98.3 this afternoon. His pulse is in the 90s to low 100s. His respiratory rate is between 18 and 20 and his blood pressure is good with a normal room air oxygen saturation. Intake and output shows that yesterday he had 4700 mL in with 6100 out. He has 240 mL of oral intake recorded but 3100 out of his nasogastric (NG) tube indicating that he has been drinking quite a bit of water and ice, and he has been taking some apple juice. PHYSICAL EXAMINATION: The patient is sitting in the bed looking quite alert, the NG tube is draining some light green [place] Marcelo-Aid colored fluid. His color is good and the sclerae are anicteric. Heart exam shows a regular rhythm and the lungs are clear. The abdomen is generally flat. His midline incision is dry and has a clean dressing in place. The left-sided colostomy appears healthy and there is no output. On the right side, the ileostomy also appears healthy, and there is a small amount of liquid stool within the bag. The abdomen is soft and he does have some bowel sounds, particularly in the lower abdomen. Extremities are quite thin and wasted in appearance, but there is no significant edema seen. Laboratory studies today show a white count of 21,000 with a differential showing 84% neutrophils, 5% lymphocytes and 9% monocytes. His hemoglobin is 10 with a hematocrit of 28 and the platelet count is 826,000. His chemistry profile showed sodium of 133, potassium 2.7, chloride 97, CO2 of 30, BUN of 9, creatinine 0.3 and a glucose of 108. His fingerstick blood sugars have varied between 109 and 124 over the past 24 hours. IMPRESSION: 1. Diffuse feculent peritonitis secondary to ileocolic anastomotic leak, now 4 days postop. 2. Malnutrition secondary to continued nothing by mouth status, currently on TPN day number three. 3. Sigmoid colon cancer, status post resection 3 weeks ago. 4. Narcotic addiction. 5. History of Clostridium difficile colitis during his most recent hospital stay. 6. Hypokalemia. PLAN: The patient has been noncompliant with recommendations for reducing his oral intake. He had a lot of watery fluid coming out of his NG tube, and there may be some fluid coming through his stoma, but it is difficult for me to tell if his bowels are functional yet. I had a long discussion with him and encouraged him for tonight to back off and stop drinking any ice or water or apple juice or anything. I did say he could take a very few ice chips. We will clamp his NG tube, and if he tolerates this well until the morning with output from his stoma, we may be able to actually remove his NG tube. If he develops nausea or vomiting or bloating or pain, we will resume low intermittent suction, and he was agreeable with this plan. He continues to use the QUILL BUNCHER AND SORTER and is down to 172 approximately mg of morphine over the last 24-hour period, which is improved from approximately 240 mg of morphine yesterday. He attributes this to use of the Toradol, and we will continue the Toradol routinely every 6 hours. He remains on the TPN at 65 mL/hour with the Intralipid at the standard rate. His blood sugars have been doing pretty well overall. He remains on the antibiotics for his peritonitis, and his white count remains at approximately 21,000. We will be watching this to see if it starts to decrease toward normal. I encouraged him to be up out of bed and ambulatory. I believe it would be prudent to ask physical therapy to see him as he apparently has a good deal of muscle loss and wasting since he was first admitted. GAUTAM
[2019-06-26 22:00] VITALS: BP 127/86
[2019-06-27] MEDS: HumaLOG INSULIN (NovoLOG) PER UNIT SC SCH ×4 (00:24→18:30)
[2019-06-27] MEDS: KETOROLAC 30 MG/ML VIAL (J1885) IV SCH ×4 (00:25→18:35)
[2019-06-27 00:48] LABS: BLOOD UREA NITROGEN 9 MG/DL (7-18); CALCIUM LEVEL 7.6 MG/DL (8.5-10.1); CARBON DIOXIDE LEVEL 32 MEQ/L (21-32); CHLORIDE LEVEL 99 MEQ/L (98-107); CREATININE FOR GFR 0.38 MG/DL (0.70-1.30); GLOMERULAR FILTRATION RATE > 60.0 (>60); GLUCOSE, FASTING 117 MG/DL (70-100); POTASSIUM SERUM 3.2 MEQ/L (3.5-5.1); SODIUM LEVEL 135 MEQ/L (136-145)
[2019-06-27] MEDS ORDERED: KCL 10MEQ/100ML SWI (KRUN) 10 MEQ in IV 1 EA IV ONE ×2 (01:00→08:00)
[2019-06-27] MEDS: IMIPENEM/CILASTATIN 500 MG in D5W MINI-BAG PLUS 100 ML IV SCH ×4 (01:35→18:35)
[2019-06-27 02:00] VITALS: BP 115/81
[2019-06-27] MEDS: metroNIDAZOLE 500 MG in IV 1 EA IV SCH ×3 (02:48→20:05)
[2019-06-27] MEDS: NS 1,000 ML IV SCH ×2 (04:08→22:56)
[2019-06-27] MEDS ORDERED: KCL 10MEQ/100ML SWI (KRUN) 10 MEQ in IV 1 EA IV SCH (05:00)
[2019-06-27] MEDS: PANTOPRAZOLE 40MG INJ (PROTONIX) (C9113) IV SCH ×2 (05:42→18:33)
[2019-06-27] MEDS: SODIUM CHLORIDE 0.9% INJ 10 ML SYR IV SCH ×2 (05:42→18:31)
[2019-06-27 06:00] VITALS: BP 118/81
[2019-06-27 07:33] LABS: BASO % 0.1 % (0.0-1.0); EOS # 0.1 10^3/uL (0.0-0.5); EOS % 0.4 % (0.0-3.0); HEMATOCRIT 27.2 % (42.0-52.0); LYMPH # 1.3 10^3/uL (1.5-5.0); LYMPH % 6.7 % (24.0-44.0); MEAN CORPUSCULAR HEMOGLOBIN 28.6 pg (27.0-33.0); MEAN CORPUSCULAR HGB CONC 33.1 g/dl (32.0-36.5); MEAN CORPUSCULAR VOLUME 86.3 fl (80.0-96.0); MONO # 1.7 10^3/uL (0.0-0.8); MONO % 9.3 % (0.0-5.0); NEUTROPHILS # 15.4 10^3/uL (1.5-8.5); NEUTROPHILS % 82.2 % (36.0-66.0); PLATELET COUNT, AUTOMATED 809 10^3/uL (150-450); RED BLOOD COUNT 3.15 10^6/uL (4.30-6.10); WHITE BLOOD COUNT 18.7 10^3/uL (4.0-10.0)
[2019-06-27 08:04] LABS: ALBUMIN 1.4 GM/DL (3.2-5.2); ALT/SGPT 9 U/L (12-78); BILIRUBIN,TOTAL 0.4 MG/DL (0.2-1.0); BLOOD UREA NITROGEN 9 MG/DL (7-18); CALCIUM LEVEL 7.5 MG/DL (8.5-10.1); CARBON DIOXIDE LEVEL 31 MEQ/L (21-32); CHLORIDE LEVEL 101 MEQ/L (98-107); CREATININE FOR GFR 0.31 MG/DL (0.70-1.30); GLOMERULAR FILTRATION RATE > 60.0 (>60); GLUCOSE, FASTING 96 MG/DL (70-100); POTASSIUM SERUM 3.1 MEQ/L (3.5-5.1); SODIUM LEVEL 136 MEQ/L (136-145); TOTAL PROTEIN 5.3 GM/DL (6.4-8.2)
[2019-06-27] MEDS: ENOXAPARIN 40 MG/0.4 ML SYRINGE (J1650) SC SCH (08:50)
[2019-06-27] MEDS: SODIUM CHLORIDE 0.9% INJ 10 ML SYR IV PRN ×2 (09:59→16:12)
[2019-06-27 10:00] VITALS: BP 119/81
--- NOTE | 2019-06-27 11:34 | IPNPDOC ---
Text Note Date of Service The patient was seen on 06/27/19. NOTE Subjective: Patient is a 44-year-old male presented to the hospital with sign ificant abdominal pain and tenderness. Patient brought to the operating room for bowel resection of the anastomosis site from his previous surgery. Patient's NG tube has been pulled overnight and patient has been started on a clear liquid diet. Patient is feeling better but says he can take it slow as he does not want a repeat what happened last time. Review of systems General: Patient denies fevers HEENT: Patient denies headaches Cardiovascular: Patient denies chest pain Respiratory: Patient denies shortness of breath, cough GI: Patient endorses abdominal pain around his incision sites. He has been having output from his ileostomy : Patient denies pain or difficulty with urination Extremities: Patient denies swelling or pain in extremities Objective: Vitals: (see below) General: Patient is an alert and oriented male who was sitting in the hospital bed when I walked in the room. Patient's nasogastric tube has been removed. Patient does not appear to be in any acute distress. HEENT: Normocephalic, atraumatic, moist mucous membranes. Cardiac: Regular rate and rhythm, no murmurs, normal S1, normal S2 Pulm: Clear to auscultation bilaterally. No wheezes, rhonchi, rales Abd: Soft, tenderness to palpation of the incision sites. Abdomen is nondistended. There is no erythema surrounding incision site. Ext: No edema bilateral lower extremities Labs (see below) Images: No new imaging has been performed. Assessment: Patient is a 44-year-old male presented to the hospital with wor sening abdominal pain distention and found to have a bowel perforation at anastomosis site from previous surgery. Patient is status post 2 operations and is postop day 4. Plan 1. Bowel perforation. Patient is brought to the operating room twice by Dr. Reynolds. Patient is doing much better today. Patient remains on imipenem, Flagyl, and fluconazole. Patient's diet is advanced to clear liquids per Dr. Reynolds. Patient's nasogastric tube was removed. Patient still remains on TPN. 2. Hypokalemia. This is slightly improved however, this remains low. Patient is receiving potassium with his TPN and as potassium runs. 3. History of C. difficile colitis. Patient was diagnosed during his last hospitalization. Continue IV Flagyl 4. Adenocarcinoma of the colon. Lymph nodes were negative 10. Will need outpatient follow-up with oncology. 5. Hyponatremia, mild. We will continue to monitor. 6. Normocytic anemia. Patient received 2 units of packed red blood cells 3 days ago. Patient's hemoglobin is stable. 7. Thrombocytosis. Patient's platelet count has come down slightly from yesterday. This is most likely reactive and we will continue to monitor. 8. Leukocytosis. Patient's white blood cell count has improved today and we will continue to monitor. 9. Opiate dependence. Suboxone is on hold. We will continue the patient's MOLD CAR PUSHER morphine pump and Toradol for pain control. 10. Gastrointestinal prophylaxis. Continue with IV Protonix. DVT prophy: Lovenox Dispo: Pending advancement of diet, continue surgical management, and physical therapy. Attending: Patient seen and examined independently. Agree with resident's note. VS,Fishbone, I+O VS, Fishbone, I+O Laboratory Tests 06/26/19 17:43 06/27/19 00:17 06/27/19 07:18 Vital Signs Date Time Temp Pulse Resp B/P (MAP) Pulse Ox O2 Delivery O2 Flow Rate FiO2 06/27/19 06:00 99.3 93 17 118/81 (93) 96 Room Air 06/24/19 09:03 1.0 I&O- Last 24 Hours up to 6 AM 06/27/19 06:00 Intake Total 1060 ml Output Total 4405 ml Balance -3345 ml DARLEEN HESTER DO Jun 27, 2019 11:34 SHERRY MCINTOSH MD Jul 07, 2019 22:19
[2019-06-27] MEDS: MORPHINE 1MG/ML IN 0.9% NACL 100ML IV BAG IV PRN (12:55)
[2019-06-27] MEDS: FLUCONAZOLE 200 MG in IV 1 EA IV SCH (14:23)
[2019-06-27 18:00] VITALS: BP 116/75
[2019-06-27] MEDS ORDERED: FAT EMULSION IV 20% 500 ML IV SCH (18:00)
[2019-06-27] MEDS ORDERED: [UNRECOGNIZED DRUG - MIXTURE] IV SCH ×4 (18:00)
--- NOTE | 2019-06-27 18:25 | IPN ---
DATE: 06/27/2019 HISTORY: The patient is now postoperative day five from exploratory laparotomy for fecal peritonitis from an anastomotic leak and day four from a second look laparotomy with irrigation and debridement and closure of his wound. He has been making good progress. Yesterday evening, I convinced him to stop drinking his liquids and allow us to try a trial of clamping his nasogastric (NG) tube. He reports that the tube remained clamped all night and he has had no nausea or vomiting. He reports that there has been flatus through his bag as well as some stool. He looks fairly comfortable this morning. He has been using his patient-controlled analgesia (TUNNEL WORKER) and has used approximately 185 mg of morphine over the last 24 hours. He is also getting Toradol routinely. He remains on his antibiotics with Flagyl, imipenem, and Diflucan. Vital signs show that his maximum temperature (T-max) was 99.8 at 10:00 o'clock last night which is slightly down from what it had been for the past two days. His pulse is hanging out in the mid to upper 90s and his blood pressure is excellent. His room air oxygen saturation is normal. Although I believe he actually is on nasal cannula oxygen at this time. Intake and output show that yesterday he has recorded 1920 in with 4000 out. His urine output was 2200 and his NG output yesterday was 1750. I think his oral intake is underestimated based on what he had been taking yesterday. PHYSICAL EXAMINATION: The patient is lying quietly in the bed and looks like he was dozing when I came in. His color is good. He has anicteric sclerae. Heart examination shows a regular rhythm and his lungs are clear. The abdomen is flat. He has some stool in his ileostomy bag and the colostomy bag is empty. His midline incision looks clean. He has some bowel sounds in his lower abdomen. The abdomen is soft. LABORATORY DATA: The patient had a medical profile this morning that showed a sodium of 135, potassium 3.2, chloride 99, CO2 of 32, BUN of 9, creatinine 0.4, and a glucose of 117. His fingerstick blood sugars on TPN have been running between 109 and 140 over the last 24 hours or so. IMPRESSION: The patient appears to have tolerated clamping of his nasogastric (NG) tube well and has reported lots of flatus from his ileostomy as well as some stool. He is staying at about the same amount of patient-controlled analgesia (TUNNEL WORKER) medication as yesterday. The total parenteral nutrition (TPN) continues. His potassium is a little better than it was yesterday morning and he has received some supplemental potassium IV. As his diet improves, we will be able to change this to oral. PLAN: The patient's nasogastric (NG) tube was removed. I will put him on clear liquids today with an order to advance to full liquids if the clears are well-tolerated. He may have still some partial obstructions given his degree of peritoneal contamination and we may need to go slowly in advancing his diet beyond the liquids. I will continue his total parenteral nutrition (TPN) for now. He will remain on his current antibiotics. His white count has been remaining at 20-21 and hopefully we will see this start to decrease. In the next few days, if his white count does not improve, we may need to start looking for an intra-abdominal abscess. Ascertaining whether a fluid collection is an abscess or just retained debris and fluid may be difficult in this patient. As I am going out of town, I will be turning the care of this patient over to Dr. Curtis today. GAUTAM
[2019-06-27 22:00] VITALS: BP 117/77
[2019-06-28] MEDS: KETOROLAC 30 MG/ML VIAL (J1885) IV SCH ×5 (00:38→23:25)
[2019-06-28] MEDS: IMIPENEM/CILASTATIN 500 MG in D5W MINI-BAG PLUS 100 ML IV SCH ×5 (00:39→23:25)
[2019-06-28] MEDS: HumaLOG INSULIN (NovoLOG) PER UNIT SC SCH ×3 (00:39→12:00)
[2019-06-28] MEDS: MORPHINE 1MG/ML IN 0.9% NACL 100ML IV BAG IV PRN ×2 (01:36→09:46)
[2019-06-28 02:00] VITALS: BP 122/81
[2019-06-28] MEDS: metroNIDAZOLE 500 MG in IV 1 EA IV SCH ×3 (02:05→18:24)
[2019-06-28] MEDS: SODIUM CHLORIDE 0.9% INJ 10 ML SYR IV PRN (02:05)
[2019-06-28] MEDS: PANTOPRAZOLE 40MG INJ (PROTONIX) (C9113) IV SCH ×2 (05:53→18:24)
[2019-06-28 06:00] VITALS: BP 120/83
[2019-06-28] MEDS: SODIUM CHLORIDE 0.9% INJ 10 ML SYR IV SCH ×2 (06:36→18:24)
[2019-06-28 06:53] LABS: BASO % 0.2 % (0.0-1.0); EOS # 0.2 10^3/uL (0.0-0.5); EOS % 1.2 % (0.0-3.0); HEMATOCRIT 26.8 % (42.0-52.0); HEMOGLOBIN 8.7 g/dl (13.5-17.5); LYMPH # 1.5 10^3/uL (1.5-5.0); LYMPH % 9.9 % (24.0-44.0); MEAN CORPUSCULAR HEMOGLOBIN 28.3 pg (27.0-33.0); MEAN CORPUSCULAR HGB CONC 32.5 g/dl (32.0-36.5); MEAN CORPUSCULAR VOLUME 87.3 fl (80.0-96.0); MONO # 1.6 10^3/uL (0.0-0.8); MONO % 10.2 % (0.0-5.0); NEUTROPHILS % 77.2 % (36.0-66.0); PLATELET COUNT, AUTOMATED 876 10^3/uL (150-450); RED BLOOD COUNT 3.07 10^6/uL (4.30-6.10); WHITE BLOOD COUNT 15.6 10^3/uL (4.0-10.0)
[2019-06-28 07:15] LABS: BLOOD UREA NITROGEN 7 MG/DL (7-18); CALCIUM LEVEL 7.9 MG/DL (8.5-10.1); CARBON DIOXIDE LEVEL 31 MEQ/L (21-32); CHLORIDE LEVEL 102 MEQ/L (98-107); CREATININE FOR GFR 0.34 MG/DL (0.70-1.30); GLOMERULAR FILTRATION RATE > 60.0 (>60); GLUCOSE, FASTING 108 MG/DL (70-100); MAGNESIUM LEVEL 2.4 MG/DL (1.8-2.4); POTASSIUM SERUM 3.1 MEQ/L (3.5-5.1); SODIUM LEVEL 135 MEQ/L (136-145)
[2019-06-28] MEDS ORDERED: ASPIRIN 325 MG TAB PO SCH (09:00)
[2019-06-28] MEDS: ENOXAPARIN 40 MG/0.4 ML SYRINGE (J1650) SC SCH (09:45)
[2019-06-28 09:51] VITALS: BP 122/84
--- NOTE | 2019-06-28 10:14 | IPNPDOC ---
Text Note Date of Service The patient was seen on 06/28/19. NOTE No acute events overnight. Tolerating the flq diet without any nausea or emesis. Pain is well controlled and the ostomy output is good. There is stool in the bag with lots of air. He has been emptying and changing his bags on his own, and ambulating. VSSAF NAD abd - soft, TTP appropriate, incision c/d/i, ostomy is pink and patent with stool and air in bag labs - below wbc - 18.7>15.6 A) 44y/o male s/p sigmoidectomy and rt colon resection complicated by a leak. 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 Robert Curtis DO VS,Fishbone, I+O VS, Fishbone, I+O Laboratory Tests 06/28/19 06:07 Vital Signs Date Time Temp Pulse Resp B/P (MAP) Pulse Ox O2 Delivery O2 Flow Rate FiO2 06/28/19 09:51 98.6 89 18 122/84 (97) 97 Room Air 06/24/19 09:03 1.0 I&O- Last 24 Hours up to 6 AM 06/28/19 06:00 Intake Total 5914 ml Output Total 3000 ml Balance 2914 ml JUSTUS CURTIS DO Jun 28, 2019 10:14
[2019-06-28] MEDS: POTASSIUM CHLORIDE 10 MEQ SR TABLET PO SCH ×2 (10:33→20:35)
--- NOTE | 2019-06-28 10:46 | IPNPDOC ---
Text Note Date of Service The patient was seen on 06/28/19. NOTE Subjective: Patient is a 44-year-old male presents to Hospital significant pa lpation tenderness. Patient was brought to the operating room for bowel perforation anastomosis site. Patient has been doing well overnight. Patient has been advanced to full liquid diet and is doing much better. Review of systems General: Patient denies fevers HEENT: Patient denies headaches Cardiovascular: Patient denies chest pain Respiratory: Patient denies shortness of breath, cough GI: Patient endorses improving abdominal pain. He has output from his ileostomy. Extremities: Patient denies swelling or pain in extremities Objective: Vitals: (see below) General: Alert and oriented male patient who was laying in bed when I walked in. Patient was no acute distress. HEENT: Normocephalic, atraumatic, moist mucous membranes. Cardiac: Regular rate and rhythm, no murmurs, normal S1, normal S2 Pulm: Clear to auscultation bilaterally. No wheezes, rhonchi, rales Abd: Soft, nondistended, nontender, incision is clean and dry with no erythema nelida are in place. Ext: No edema bilateral lower extremities Labs (see below) Images: No imaging has been performed Assessment: Patient is a 44-year-old male presented to the hospital with worsening abdominal pain and distention found have bowel perforation at anastomosis site from previous surgery. Patient is status post 2 operations and is postop day 5. Plan 1. Bowel perforation. Patient was brought to the operating room twice by Dr. Nataliya saucedo. Patient is doing much better today. Patient remains on imipenem, Flagyl, and fluconazole per surgery. Patient was advanced to full liquids by surgery. Patient's nasogastric tube was removed [address] Curtis of general surgery has discontinued the patient's TPN and SOURCING ANALYST pump. 2. Hypokalemia. This is slightly improved today. Patient was receiving potassium runs per surgery. 3. History of C. difficile colitis. This was during the patient's last hospitalization. Continue the IV Flagyl per surgery. 4. Adenocarcinoma of the colon. Lymph nodes were negative 10. Patient will need outpatient follow-up with oncology. 5. Hyponatremia, mild. We will continue to monitor. 6. Thrombocytosis. Patient's platelet counts to remains elevated today patient was given aspirin to help avoid clotting due to the thrombocytosis. Patient received 325 mg today and will start 81 mg BID starting tomorrow. 7. Normocytic anemia. Patient is status post 2 units packed red blood cells 4 days ago. Patient's hemoglobin is stable. 8. Leukocytosis. Patient's white blood cell count has improved and according to general surgery, the patient will be able to be discharged when his white count is stable around 10 or 11. 9. Opiate dependence. Suboxone is on hold and after talking with the patient, he no longer wants to take Suboxone. Patient's SOURCING ANALYST pump was discontinued by general surgery. Patient has Toradol for pain control. Patient will be on Raymond with IV morphine for breakthrough per Dr. Curtis's orders. 10. Gastrointestinal prophylaxis continue with IV Protonix. DVT prophy: Lovenox Dispo: Pending advancement of diet, continued surgical management, physical therapy, and improvement in leukocytosis to 10-11. Attending: Patient seen and examined independently. Agree with resident's note. VS,Fishbone, I+O VS, Fishbone, I+O Laboratory Tests 06/28/19 06:07 Vital Signs Date Time Temp Pulse Resp B/P (MAP) Pulse Ox O2 Delivery O2 Flow Rate FiO2 06/28/19 09:51 98.6 89 18 122/84 (97) 97 Room Air 06/24/19 09:03 1.0 l I&O- Last 24 Hours up to 6 AM 06/28/19 05:59 Intake Total 5154 ml Output Total 2700 ml Balance 2454 ml DARLEEN HESTER DO Jun 28, 2019 10:46 SHERRY MCINTOSH MD Jul 07, 2019 22:19
[2019-06-28] MEDS: NORCO, ANEXSIA 5/325MG TABLET (HYDROcodone/ACETAMINOPHEN) PO PRN ×2 (12:52→16:50)
[2019-06-28 14:00] VITALS: BP 121/83
[2019-06-28] MEDS: MORPHINE 2 MG/ML 1ML VIAL (J2270) IV PRN ×4 (14:02→21:34)
[2019-06-28] MEDS: FLUCONAZOLE 200 MG in IV 1 EA IV SCH (14:02)
[2019-06-28 18:00] VITALS: BP 122/85
[2019-06-28] MEDS: NS 1,000 ML IV SCH (20:35)
[2019-06-28 22:00] VITALS: BP 122/86
[2019-06-29 02:00] VITALS: BP 119/85
[2019-06-29] MEDS ORDERED: ACETAMINOPHEN TAB 650MG DOSE (2X325MG) PO PRN (03:30)
[2019-06-29] MEDS: metroNIDAZOLE 500 MG in IV 1 EA IV SCH ×3 (03:35→20:40)
[2019-06-29 06:00] VITALS: BP 117/84
[2019-06-29] MEDS: SODIUM CHLORIDE 0.9% INJ 10 ML SYR IV SCH ×2 (06:01→18:00)
[2019-06-29] MEDS: IMIPENEM/CILASTATIN 500 MG in D5W MINI-BAG PLUS 100 ML IV SCH ×3 (06:02→18:45)
[2019-06-29] MEDS: PANTOPRAZOLE 40MG INJ (PROTONIX) (C9113) IV SCH ×2 (06:02→18:41)
[2019-06-29] MEDS: KETOROLAC 30 MG/ML VIAL (J1885) IV SCH ×3 (06:02→18:41)
[2019-06-29 06:58] LABS: BASO % 0.2 % (0.0-1.0); EOS # 0.1 10^3/uL (0.0-0.5); EOS % 0.6 % (0.0-3.0); HEMATOCRIT 28.6 % (42.0-52.0); HEMOGLOBIN 9.2 g/dl (13.5-17.5); LYMPH # 1.6 10^3/uL (1.5-5.0); LYMPH % 9.6 % (24.0-44.0); MEAN CORPUSCULAR HGB CONC 32.2 g/dl (32.0-36.5); MEAN CORPUSCULAR VOLUME 86.9 fl (80.0-96.0); MONO # 1.6 10^3/uL (0.0-0.8); MONO % 9.5 % (0.0-5.0); NEUTROPHILS # 13.5 10^3/uL (1.5-8.5); NEUTROPHILS % 78.9 % (36.0-66.0); PLATELET COUNT, AUTOMATED 983 10^3/uL (150-450); RED BLOOD COUNT 3.29 10^6/uL (4.30-6.10); WHITE BLOOD COUNT 17.1 10^3/uL (4.0-10.0)
[2019-06-29 07:26] LABS: BLOOD UREA NITROGEN 11 MG/DL (7-18); CALCIUM LEVEL 7.7 MG/DL (8.5-10.1); CARBON DIOXIDE LEVEL 28 MEQ/L (21-32); CHLORIDE LEVEL 103 MEQ/L (98-107); CREATININE FOR GFR 0.35 MG/DL (0.70-1.30); GLOMERULAR FILTRATION RATE > 60.0 (>60); GLUCOSE, FASTING 97 MG/DL (70-100); MAGNESIUM LEVEL 1.9 MG/DL (1.8-2.4); POTASSIUM SERUM 4.2 MEQ/L (3.5-5.1); SODIUM LEVEL 136 MEQ/L (136-145)
[2019-06-29] MEDS: ASPIRIN 81 MG ENTERIC TAB PO SCH ×2 (08:48→19:57)
[2019-06-29] MEDS: POTASSIUM CHLORIDE 10 MEQ SR TABLET PO SCH ×2 (08:48→20:40)
[2019-06-29] MEDS: ENOXAPARIN 40 MG/0.4 ML SYRINGE (J1650) SC SCH (08:48)
[2019-06-29 10:00] VITALS: BP 118/84
[2019-06-29] MEDS: GASTROGRAFIN SOLUTION 30ML PO SCH ×2 (10:08→10:15)
--- NOTE | 2019-06-29 10:15 | IPNPDOC ---
Text Note Date of Service The patient was seen on 06/29/19. NOTE No acute events overnight. Tolerating the REG diet without any nausea or emesis. Pain is well controlled and the ostomy output is good. He did have to restart his Suboxone last night. No fevers. VSSAF NAD abd - soft, TTP appropriate, incision c/d/i, ostomy is pink and patent with stool and air in bag labs - below wbc - 18.7>15.6>17.1 A) 44y/o male s/p sigmoidectomy and rt colon resection complicated by a leak. P) abx, and antifungals repeat CT to look for an abscess. If positive for abscess, then we will consult IR for drainage tomorrow reg diet will plan on d/c home once wbc improves and he is off IV pain control. Robert Curtis DO VS,Yoko, I+O VS, [place], I+O Laboratory Tests 06/29/19 06:32 Vital Signs Date Time Temp Pulse Resp B/P (MAP) Pulse Ox O2 Delivery O2 Flow Rate FiO2 06/29/19 06:00 98.1 78 19 117/84 (95) 99 Room Air 06/24/19 09:03 1.0 I&O- Last 24 Hours up to 6 AM 06/29/19 05:59 Intake Total 2580 ml Output Total 3450 ml Balance -870 ml JUSTUS CURTIS DO Jun 29, 2019 10:15
--- NOTE | 2019-06-29 10:30 | IPNPDOC ---
Text Note Date of Service The patient was seen on 06/29/19. NOTE Subjective: Patient seen and examined at bedside. No acute overnight events reported. He is asking for his suboxone to be resumed. No new medical complaints. Objective: Vitals: (see below) General: NAD, lying comfortably in bed HEENT: NC/AT Cardiac: +S1S2, RRR Lungs: CTA B/L Abd: soft, NT, +BS Ext: no edema A/P: Patient is a 44-year-old male presented to the hospital with worsening abdominal pain and distention found have bowel perforation at anastomosis site from prev ious surgery. Patient is status post 2 operations and is postop day 5. # Bowel perforation Patient was brought to the operating room twice by Dr. Reynolds. Patient continues to improve. Leukocytosis worsening - d/w surgery- assistance appreciated - CT A/P pending - remains on imipenem, Flagyl, and fluconazole - continue to follow as per surgery #Hypokalemia - continue to monitor and replete as needed #C. difficile colitis. This was during the patient's last hospitalization. Continue IV Flagyl per surgery. #Adenocarcinoma of the colon. Lymph nodes were negative 10. Patient will need outpatient follow-up with oncology. #Hyponatremia, mild. We will continue to monitor. #Thrombocytosis -continues to increase - continue with ASA therapy # Normocytic anemia. Patient is status post 2 units packed red blood cells 4 days ago. Patient's hemoglobin is stable. #Leukocytosis - as above - worsening - repeat CT to assess for abscess #Opiate dependence - resumed suboxone today 8/2mg #GI prophylaxis continue with IV Protonix. DVT prophy: Lovenox Dispo: Pending advancement of diet, continued surgical management, physical therapy, and improvement in leukocytosis to 10-11. VS,Fishbone, I+O VS, Fishbone, I+O Laboratory Tests 06/29/19 06:32 Vital Signs Date Time Temp Pulse Resp B/P (MAP) Pulse Ox O2 Delivery O2 Flow Rate FiO2 06/29/19 06:00 98.1 78 19 117/84 (95) 99 Room Air 06/24/19 09:03 1.0 I&O- Last 24 Hours up to 6 AM 06/29/19 06:00 Intake Total 2370 ml Output Total 3350 ml Balance -980 ml SHERRY MCINTOSH MD Jun 29, 2019 10:30
[2019-06-29] MEDS ORDERED: ISOVUE-370 76% 100ML VIAL (Q9967) As Ordered ONE (10:43)
[2019-06-29] MEDS: BUPRENORPHINE/NALOXONE 8-2MG SUBLINGUAL TABLET(SUBOXONE) SL SCH (11:44)
--- NOTE | 2019-06-29 11:59 | REP ---
CT of the abdomen and pelvis with IV contrast, without bowel contrast: Comparison is 06/22/2019. There is a small volume of free fluid throughout the entire abdomen and pelvis, significantly decreased from the comparison study. There is a tiny volume of pneumoperitoneum anteriorly in the upper abdomen, significantly decreased from the comparison study. There is a left upper quadrant abdominal ostomy, unchanged. There is a new right upper quadrant abdominal ostomy. No surgical drains are identified. There is a new moderate left pleural effusion with compression atelectasis of the adjacent lung as an interval change. There is a new tiny right pleural effusion with adjacent lung compression atelectasis as an interval change. The hepatic parenchyma is homogeneous. The gallbladder is unremarkable. The pancreas and spleen are unremarkable. The adrenals, kidneys and abdominal aorta are unremarkable. There is moderate small bowel distension with occasional air-fluid levels, possibly ileus. Pelvis: There is free fluid as previously described. There is a small volume of pneumoperitoneum anteriorly in the pelvis. Impression: The volume of free intraperitoneal fluid has significantly decreased. The volume of pneumoperitoneum has significantly decreased. There is a new right upper quadrant abdominal wall ostomy. Left upper quadrant abdominal ostomy is unchanged. There is a tiny volume of air within the subcutaneous soft tissues along the left lateral abdominal wall wall, possibly an injection site. This is a change from the prior study. There is a new moderate left pleural effusion with compression atelectasis of the adjacent lung. There is a new small right pleural effusion with compression atelectasis of the adjacent lung. Electronically Signed by Dayton Alvarenga MD 06/29/2019 11:50 A
[2019-06-29 14:00] VITALS: BP 118/85
[2019-06-29] MEDS: FLUCONAZOLE 200 MG in IV 1 EA IV SCH (14:00)
[2019-06-29 18:00] VITALS: BP 113/84
[2019-06-29 21:51] VITALS: BP 117/83
[2019-06-29] MEDS: NS 1,000 ML IV SCH (22:56)
[2019-06-30] MEDS: IMIPENEM/CILASTATIN 500 MG in D5W MINI-BAG PLUS 100 ML IV SCH ×3 (00:14→12:19)
[2019-06-30] MEDS: KETOROLAC 30 MG/ML VIAL (J1885) IV SCH ×3 (00:14→12:20)
[2019-06-30 02:00] VITALS: BP 108/87
[2019-06-30] MEDS: metroNIDAZOLE 500 MG in IV 1 EA IV SCH ×2 (02:45→09:36)
[2019-06-30] MEDS: PANTOPRAZOLE 40MG INJ (PROTONIX) (C9113) IV SCH (05:17)
[2019-06-30] MEDS: SODIUM CHLORIDE 0.9% INJ 10 ML SYR IV SCH ×2 (05:17→19:00)
[2019-06-30 06:30] LABS: BASO % 0.3 % (0.0-1.0); EOS # 0.1 10^3/uL (0.0-0.5); EOS % 0.6 % (0.0-3.0); HEMATOCRIT 29.8 % (42.0-52.0); HEMOGLOBIN 9.5 g/dl (13.5-17.5); LYMPH # 1.9 10^3/uL (1.5-5.0); LYMPH % 12.2 % (24.0-44.0); MEAN CORPUSCULAR HEMOGLOBIN 27.7 pg (27.0-33.0); MEAN CORPUSCULAR HGB CONC 31.9 g/dl (32.0-36.5); MEAN CORPUSCULAR VOLUME 86.9 fl (80.0-96.0); MONO # 1.5 10^3/uL (0.0-0.8); NEUTROPHILS # 11.8 10^3/uL (1.5-8.5); NEUTROPHILS % 76.1 % (36.0-66.0); RED BLOOD COUNT 3.43 10^6/uL (4.30-6.10); WHITE BLOOD COUNT 15.5 10^3/uL (4.0-10.0)
[2019-06-30 06:31] LABS: PLATELET COUNT, AUTOMATED 1075 10^3/uL (150-450)
[2019-06-30 06:58] LABS: BLOOD UREA NITROGEN 9 MG/DL (7-18); CALCIUM LEVEL 7.8 MG/DL (8.5-10.1); CARBON DIOXIDE LEVEL 30 MEQ/L (21-32); CHLORIDE LEVEL 102 MEQ/L (98-107); CREATININE FOR GFR 0.44 MG/DL (0.70-1.30); GLOMERULAR FILTRATION RATE > 60.0 (>60); GLUCOSE, FASTING 103 MG/DL (70-100); POTASSIUM SERUM 4.3 MEQ/L (3.5-5.1); SODIUM LEVEL 135 MEQ/L (136-145)
[2019-06-30] MEDS: ASPIRIN 81 MG ENTERIC TAB PO SCH ×2 (09:36→20:02)
[2019-06-30] MEDS: POTASSIUM CHLORIDE 10 MEQ SR TABLET PO SCH ×2 (09:36→20:02)
[2019-06-30] MEDS: ENOXAPARIN 40 MG/0.4 ML SYRINGE (J1650) SC SCH (09:37)
[2019-06-30] MEDS: BUPRENORPHINE/NALOXONE 8-2MG SUBLINGUAL TABLET(SUBOXONE) SL SCH (09:37)
[2019-06-30 10:00] VITALS: BP 118/77
[2019-06-30] MEDS: SODIUM CHLORIDE 0.9% INJ 10 ML SYR IV PRN (12:22)
[2019-06-30] MEDS: FLUCONAZOLE 200 MG in IV 1 EA IV SCH (13:33)
[2019-06-30 14:00] VITALS: BP 114/75
--- NOTE | 2019-06-30 17:11 | IPNPDOC ---
Text Note Date of Service The patient was seen on 06/30/19. NOTE S: Pt examined at bedside. Continues to be afebrile and white count is trending down. Continues on broad-spectrum antibiotics. Tolerating all food well with good output in both ostomies. Denies any abdominal pain, nausea, vomiting, blood loss. PE: Vitals: see below General: NAD, A&Ox3, resting comfortably, frail-appearing with diffuse muscle wasting HEENT: NCAT, EOMI, anicteric sclera, MMM, bitemporal wasting CV: RRR, no murmurs or clicks or rub. No edema RESP: CTAB, no w/r/r/ ABD: soft, NT, ND. No rebound guarding rigidity. Ostomy bags intact on the left and right without any blood in the bags EXTREMITIES: 2+ radial pulses b/l, able to move all extremities NEURO: no focal deficits or acute changes A/P: 44-year-old male presented for worsening abdominal pain and distention, found to have bowel perforation at the anastomosis site. Underwent 2 operations during this stay and is postop day 7. Bowel perforation s/p sigmoidectomy & rt colon resection with anstomotic leak; Dr. Reynolds & now Dr. Curtis following, appreciate input plan as per Surgery; possibly back to OR for abscess drainage if no improvement repeat CT shows improved intraperitoneal fluid & gas Continues to do well and tolerate diet On fluconazole, Flagyl, Cipro White count gradually trending down, at 15 today Continue broad-spectrum antibiotics- transitioned to po Pleural effusion & atelectasis likely post-op changes. Breathing well on room air incentive spirometry on baord encourage ambulation, PT/OT Colon Adenocarcinoma lymph nodes negative x10 follow up o/p Oncology Thrombocytosis Per peripheral smear, likely reactionary versus 2/2 malignancy Started on aspirin 81 mg twice a day to prevent thromboembolic event Also on Lovenox Will require outpatient follow-up with hematology/oncology Hx of C. difficile colitis during last hospitalization s/p IV Flagyl Normocytic anemia likely 2/2 surgical blood loss & malignancy s/p 2U PRBC transfused this stay H&H remain stable without any overt bleeding Opioids dependence No signs of withdrawal Continue Suboxone Also on opioid pain meds currently - taper off as tolerated Protein calorie malnutrition Borderline underweight BMI 18 Diffuse muscle wasting, cachectic appearing Low albumin at 1.4 Start on Ensure, nutrition supplementation DVT ppx: Lovenox sc GI prophylaxis: po Protonix DISPO: pending clinical improvement, PT/OT, possible placement vs rehab. VS,Fishbone, I+O VS, Fishbone, I+O Laboratory Tests 06/30/19 06:14 Vital Signs Date Time Temp Pulse Resp B/P (MAP) Pulse Ox O2 Delivery O2 Flow Rate FiO2 06/30/19 10:00 98.3 91 15 118/77 (91) 99 Room Air 06/24/19 09:03 1.0 I&O- Last 24 Hours up to 6 AM 06/30/19 06:00 Intake Total 1600 ml Output Total 2600 ml Balance -1000 ml GME ATTESTATION GME ATTESTATION My faculty preceptor for this patient encounter was physically present during the encounter and was fully available. All aspects of the patient interview, examination, medical decision making process, and medical care plan development were reviewed and approved by the faculty preceptor. The faculty preceptor is aware and concurs with the plan as stated in the body of this note and will attest to such by his/her cosignature. PATRICIA EAST DO Jun 30, 2019 17:11
[2019-06-30 18:00] VITALS: BP 119/80
[2019-06-30] MEDS: CIPROFLOXACIN 500 MG TAB PO SCH (18:59)
[2019-06-30] MEDS ORDERED: IBUPROFEN 800 MG TAB PO ONE (19:30)
--- NOTE | 2019-06-30 20:00 | IPNPDOC ---
Text Note Date of Service The patient was seen on 06/30/19. NOTE No acute events overnight. Tolerating the REG diet without any nausea or emesis. Pain is well controlled and the ostomy output is good. He is ambulating in the halls, but still feels too weak to go home. CT did not show any drainable fluid collections. VSSAF NAD abd - soft, TTP appropriate, incision c/d/i, ostomy is pink and patent with stool and air in bag labs - below wbc - 18.7>15.6>17.1>15 A) 44y/o male s/p sigmoidectomy and rt colon resection complicated by a leak. P) abx, and antifungals switch to PO meds reg diet add ensure amb in vance IS will plan on d/c home once wbc improves and he is off IV pain control. Robert Curtis DO VS,Fishbone, I+O VS, Fishbone, I+O Laboratory Tests 06/30/19 06:14 Vital Signs Date Time Temp Pulse Resp B/P (MAP) Pulse Ox O2 Delivery O2 Flow Rate FiO2 06/30/19 18:00 99.4 92 18 119/80 (93) 98 Room Air 06/24/19 09:03 1.0 I&O- Last 24 Hours up to 6 AM 06/30/19 06:00 Intake Total 1600 ml Output Total 2600 ml Balance -1000 ml JUSTUS CURTIS DO Jun 30, 2019 20:00
[2019-06-30] MEDS: metroNIDAZOLE (FLAGYL) 500 MG TAB PO SCH (20:02)
[2019-06-30 22:00] VITALS: BP 111/78
[2019-07-01 02:00] VITALS: BP 104/70
[2019-07-01] MEDS: SODIUM CHLORIDE 0.9% INJ 10 ML SYR IV PRN (05:51)
[2019-07-01] MEDS: CIPROFLOXACIN 500 MG TAB PO SCH ×2 (05:51→18:26)
[2019-07-01] MEDS: SODIUM CHLORIDE 0.9% INJ 10 ML SYR IV SCH (05:51)
[2019-07-01 06:00] VITALS: BP 118/71
[2019-07-01 06:38] LABS: BASO # 0.1 10^3/uL (0.0-0.2); BASO % 0.3 % (0.0-1.0); EOS # 0.1 10^3/uL (0.0-0.5); EOS % 0.6 % (0.0-3.0); HEMOGLOBIN 9.1 g/dl (13.5-17.5); LYMPH # 2.2 10^3/uL (1.5-5.0); LYMPH % 12.6 % (24.0-44.0); MEAN CORPUSCULAR HEMOGLOBIN 28.6 pg (27.0-33.0); MEAN CORPUSCULAR HGB CONC 32.5 g/dl (32.0-36.5); MEAN CORPUSCULAR VOLUME 88.1 fl (80.0-96.0); MONO % 12.7 % (0.0-5.0); NEUTROPHILS # 12.6 10^3/uL (1.5-8.5); NEUTROPHILS % 72.8 % (36.0-66.0); RED BLOOD COUNT 3.18 10^6/uL (4.30-6.10); WHITE BLOOD COUNT 17.4 10^3/uL (4.0-10.0)
[2019-07-01 06:41] LABS: MONO # 2.2 10^3/uL (0.0-0.8); PLATELET COUNT, AUTOMATED 1044 10^3/uL (150-450)
[2019-07-01 06:54] LABS: BLOOD UREA NITROGEN 12 MG/DL (7-18); CALCIUM LEVEL 8.4 MG/DL (8.5-10.1); CARBON DIOXIDE LEVEL 29 MEQ/L (21-32); CHLORIDE LEVEL 102 MEQ/L (98-107); CREATININE FOR GFR 0.43 MG/DL (0.70-1.30); GLOMERULAR FILTRATION RATE > 60.0 (>60); GLUCOSE, FASTING 93 MG/DL (70-100); POTASSIUM SERUM 3.9 MEQ/L (3.5-5.1); SODIUM LEVEL 135 MEQ/L (136-145)
[2019-07-01] MEDS: ENOXAPARIN 40 MG/0.4 ML SYRINGE (J1650) SC SCH (09:00)
[2019-07-01] MEDS: BUPRENORPHINE/NALOXONE 8-2MG SUBLINGUAL TABLET(SUBOXONE) SL SCH (09:04)
[2019-07-01] MEDS: metroNIDAZOLE (FLAGYL) 500 MG TAB PO SCH ×2 (09:04→19:39)
[2019-07-01] MEDS: PANTOPRAZOLE 40MG TAB (PROTONIX) PO SCH (09:04)
[2019-07-01] MEDS: FLUCONAZOLE 100 MG TAB PO SCH (09:04)
[2019-07-01] MEDS: ASPIRIN 81 MG ENTERIC TAB PO SCH ×2 (09:04→19:39)
[2019-07-01] MEDS: POTASSIUM CHLORIDE 10 MEQ SR TABLET PO SCH ×2 (09:04→19:39)
[2019-07-01 10:00] VITALS: BP 161/77
--- NOTE | 2019-07-01 13:50 | IPNPDOC ---
Text Note Date of Service The patient was seen on 07/01/19. NOTE S: Pt examined at bedside. Tolerating solid foods and regular diet. Passing gas from above and below. No issues overnight. No complaints. Denies any nausea, vomiting, abdominal pain. Has not required any pain medicine since 06/28. Continues to hav epersistent leukocytosis, on broad spectrum antibiotics. PE: Vitals: see below General: NAD, A&Ox3, sitting up comfortably, frail-appearing with diffuse muscle wasting HEENT: NCAT, EOMI, anicteric sclera, MMM, bitemporal wasting CV: RRR, no murmurs or clicks or rub. No edema RESP: CTAB, no w/r/r/ ABD: soft, NT, ND. No rebound guarding rigidity. Ostomy bags intact on the left and right without any blood in the bags EXTREMITIES: 2+ radial pulses b/l, able to move all extremities NEURO: no focal deficits or acute changes A/P: 44-year-old male presented for worsening abdominal pain and distention, found to have bowel perforation at the anastomosis site. Underwent 2 operations during this stay and is postop day 8. Bowel perforation s/p sigmoidectomy & rt colon resection with anstomotic leak; Dr. Reynolds & now Dr. Curtis following, appreciate input plan as per Surgery; possibly back to OR for abscess drainage if no improvement repeat CT shows improved intraperitoneal fluid & gas Continues to do well and tolerate diet On fluconazole, Flagyl, Cipro White count wavering 15-17. Per surgery, likely dc home when it improves Continue broad-spectrum antibiotics- transitioned to po Pleural effusion & atelectasis likely post-op changes. Breathing well on room air incentive spirometry on baord encourage ambulation. Cleared PT & OT Colon Adenocarcinoma lymph nodes negative x10 follow up o/p Oncology Thrombocytosis Per peripheral smear, likely reactionary versus 2/2 malignancy Started on aspirin 81 mg twice a day to prevent thromboembolic event Also on Lovenox Will require outpatient follow-up with hematology/oncology Hx of C. difficile colitis during last hospitalization s/p IV Flagyl Normocytic anemia likely 2/2 surgical blood loss & malignancy s/p 2U PRBC transfused this stay H&H remain stable without any overt bleeding Opioids dependence No signs of withdrawal Continue Suboxone Also on opioid pain meds during hospitalization -has not required since 06/28 Protein calorie malnutrition Borderline underweight BMI 18 Diffuse muscle wasting, cachectic appearing Low albumin at 1.4 Ensure with meals, nutrition supplementation DVT ppx: Lovenox sc GI prophylaxis: po Protonix DISPO: pending clinical improvement. Possibly dc home end of this week. VS,Fishbone, I+O VS, Fishbone, I+O Laboratory Tests 07/01/19 06:20 Vital Signs Date Time Temp Pulse Resp B/P (MAP) Pulse Ox O2 Delivery O2 Flow Rate FiO2 07/01/19 10:00 99.8 87 17 161/77 (105) 95 Room Air I&O- Last 24 Hours up to 6 AM 07/01/19 06:00 Intake Total 1290 ml Output Total 1425 ml Balance -135 ml GME ATTESTATION GME ATTESTATION My faculty preceptor for this patient encounter was physically present during the encounter and was fully available. All aspects of the patient interview, examination, medical decision making process, and medical care plan development were reviewed and approved by the faculty preceptor. The faculty preceptor is aware and concurs with the plan as stated in the body of this note and will attest to such by his/her cosignature. PATRICIA EAST DO Jul 01, 2019 13:50
[2019-07-01 14:00] VITALS: BP 108/71
[2019-07-01 18:00] VITALS: BP 96/66
--- NOTE | 2019-07-01 20:57 | IPNPDOC ---
Text Note Date of Service The patient was seen on 07/01/19. NOTE No acute events overnight. Tolerating the REG diet without any nausea or emesis. Pain is well controlled and the ostomy output is good. He is ambulating in the halls, and feels much stronger today. VSSAF NAD abd - soft, TTP appropriate, incision c/d/i, ostomy is pink and patent with stool and air in bag labs - below wbc - 18.7>15.6>17.1>15>17 A) 44y/o male s/p sigmoidectomy and rt colon resection complicated by a leak. P) PO meds reg diet w/ ensure amb in vance IS will plan on d/c home once wbc improves and he is off IV pain control. Robert Curtis DO VS,Fishbone, I+O VS, Fishbone, I+O Laboratory Tests 07/01/19 06:20 Vital Signs Date Time Temp Pulse Resp B/P (MAP) Pulse Ox O2 Delivery O2 Flow Rate FiO2 07/01/19 18:00 98.5 107 16 96/66 (76) 97 Room Air I&O- Last 24 Hours up to 6 AM 07/01/19 05:59 Intake Total 1390 ml Output Total 1975 ml Balance -585 ml JUSTUS CURTIS DO Jul 01, 2019 20:57
[2019-07-01 22:00] VITALS: BP 109/66
[2019-07-02 02:00] VITALS: BP 103/65
[2019-07-02 06:00] VITALS: BP 105/68
[2019-07-02 06:23] LABS: BASO # 0.1 10^3/uL (0.0-0.2); BASO % 0.3 % (0.0-1.0); EOS # 0.1 10^3/uL (0.0-0.5); EOS % 0.5 % (0.0-3.0); HEMATOCRIT 27.6 % (42.0-52.0); HEMOGLOBIN 8.5 g/dl (13.5-17.5); LYMPH # 1.6 10^3/uL (1.5-5.0); LYMPH % 8.8 % (24.0-44.0); MEAN CORPUSCULAR HEMOGLOBIN 27.8 pg (27.0-33.0); MEAN CORPUSCULAR HGB CONC 30.8 g/dl (32.0-36.5); MEAN CORPUSCULAR VOLUME 90.2 fl (80.0-96.0); MONO # 1.9 10^3/uL (0.0-0.8); MONO % 10.6 % (0.0-5.0); NEUTROPHILS # 14.4 10^3/uL (1.5-8.5); RED BLOOD COUNT 3.06 10^6/uL (4.30-6.10); WHITE BLOOD COUNT 18.2 10^3/uL (4.0-10.0)
[2019-07-02] MEDS: CIPROFLOXACIN 500 MG TAB PO SCH ×2 (06:26→18:14)
[2019-07-02 06:39] LABS: PLATELET COUNT, AUTOMATED 1009 10^3/uL (150-450)
[2019-07-02 06:43] LABS: BLOOD UREA NITROGEN 15 MG/DL (7-18); CALCIUM LEVEL 8.3 MG/DL (8.5-10.1); CARBON DIOXIDE LEVEL 31 MEQ/L (21-32); CHLORIDE LEVEL 104 MEQ/L (98-107); CREATININE FOR GFR 0.48 MG/DL (0.70-1.30); GLOMERULAR FILTRATION RATE > 60.0 (>60); GLUCOSE, FASTING 94 MG/DL (70-100); POTASSIUM SERUM 4.3 MEQ/L (3.5-5.1); SODIUM LEVEL 138 MEQ/L (136-145)
[2019-07-02] MEDS: metroNIDAZOLE (FLAGYL) 500 MG TAB PO SCH ×2 (08:37→21:32)
[2019-07-02] MEDS: ASPIRIN 81 MG ENTERIC TAB PO SCH ×2 (08:37→21:32)
[2019-07-02] MEDS: POTASSIUM CHLORIDE 10 MEQ SR TABLET PO SCH ×2 (08:37→21:33)
[2019-07-02] MEDS: PANTOPRAZOLE 40MG TAB (PROTONIX) PO SCH (08:37)
[2019-07-02] MEDS: BUPRENORPHINE/NALOXONE 8-2MG SUBLINGUAL TABLET(SUBOXONE) SL SCH (08:38)
[2019-07-02] MEDS: FLUCONAZOLE 100 MG TAB PO SCH (08:38)
[2019-07-02] MEDS: ENOXAPARIN 40 MG/0.4 ML SYRINGE (J1650) SC SCH (08:38)
[2019-07-02 14:00] VITALS: BP 81/53
--- NOTE | 2019-07-02 17:43 | IPNPDOC ---
Subjective Date Seen The patient was seen on 07/02/19. Subjective Chief Complaint/HPI Román feels fine despite leukocytosis Objective Physical Examination General Exam: Positive: Alert, No Acute Distress Eye Exam: Negative: Sclera icteric Neck Exam: Positive: Supple Chest Exam: Positive: Clear to auscultation Heart Exam: Positive: Rate Normal Abdomen Exam: Positive: Normal bowel sounds, BS Hyperactive, Other (ostomy in place) Extremity Exam: Negative: Clubbing, Cyanosis, Edema Skin Exam: Positive: Nl turgor and temperature Neuro Exam: Positive: Normal Gait, Normal Speech Assessment /Plan Assessment # s/p sigmoidectomy & rt colon resection with anastomotic leak; On fluconazole, Flagyl, Cipro White count wavering 15-17. Per surgery, likely dc home when it improves # Colon Adenocarcinoma lymph nodes negative x10 follow up o/p Oncology # Essential Thrombocytosis Per peripheral smear, likely reactionary versus 2/2 malignancy Started on aspirin 81 mg twice a day to prevent thromboembolic event Also on Lovenox Will require outpatient follow-up with hematology/oncology # Hx of C. difficile colitis # Normocytic anemia - likely 2/2 surgical blood loss & malignancy s/p 2U PRBC, CBC stable # Opioids dependence - Continue Suboxone # Protein calorie malnutrition Borderline underweight BMI 18 Diffuse muscle wasting, cachectic appearing - Ensure with meals, nutrition supplementation Plan/VTE VTE Prophylaxis Ordered?: Yes VS, I&O, 24H, Fishbone Vital Signs/I&O Vital Signs Date Time Temp Pulse Resp B/P (MAP) Pulse Ox O2 Delivery O2 Flow Rate FiO2 07/02/19 14:00 98.3 101 20 81/53 (62) 97 Room Air I&O- Last 24 Hours up to 6 AM 07/02/19 06:00 Intake Total 1455 ml Output Total 1950 ml Balance -495 ml Laboratory Data 24H LABS Laboratory Tests 2 07/02/19 06:00: Immature Granulocyte % (Auto) 0.8, Neutrophils (%) (Auto) 79.0H, Lymphocytes (%) (Auto) 8.8L, Monocytes (%) (Auto) 10.6H, Eosinophils (%) (Auto) 0.5, Basophils (%) (Auto) 0.3, Neutrophils # (Auto) 14.4H, Lymphocytes # (Auto) 1.6, Monocytes # (Auto) 1.9H, Eosinophils # (Auto) 0.1, Basophils # (Auto) 0.1, Nucleated Red Blood Cells % (auto) 0.0, Anion Gap 3L, Glomerular Filtration Rate > 60.0, Calcium Level 8.3L CBC/BMP Laboratory Tests 07/02/19 06:00 SARA FUNES MD Jul 02, 2019 17:43
[2019-07-02 22:00] VITALS: BP 102/63
[2019-07-03] MEDS: CIPROFLOXACIN 500 MG TAB PO SCH (05:53)
[2019-07-03 06:00] VITALS: BP 103/67
[2019-07-03] MEDS: BUPRENORPHINE/NALOXONE 8-2MG SUBLINGUAL TABLET(SUBOXONE) SL SCH (08:22)
[2019-07-03] MEDS: PANTOPRAZOLE 40MG TAB (PROTONIX) PO SCH (08:22)
[2019-07-03] MEDS: metroNIDAZOLE (FLAGYL) 500 MG TAB PO SCH (08:22)
[2019-07-03] MEDS: ASPIRIN 81 MG ENTERIC TAB PO SCH (08:22)
[2019-07-03] MEDS: FLUCONAZOLE 100 MG TAB PO SCH (08:22)
[2019-07-03] MEDS: POTASSIUM CHLORIDE 10 MEQ SR TABLET PO SCH (08:23)
[2019-07-03] MEDS: ENOXAPARIN 40 MG/0.4 ML SYRINGE (J1650) SC SCH (08:23)
[2019-07-03 08:45] LABS: BASO % 0.3 % (0.0-1.0); EOS # 0.1 10^3/uL (0.0-0.5); EOS % 0.5 % (0.0-3.0); HEMATOCRIT 28.4 % (42.0-52.0); HEMOGLOBIN 8.8 g/dl (13.5-17.5); LYMPH # 1.6 10^3/uL (1.5-5.0); LYMPH % 10.5 % (24.0-44.0); MEAN CORPUSCULAR HEMOGLOBIN 27.9 pg (27.0-33.0); MEAN CORPUSCULAR VOLUME 90.2 fl (80.0-96.0); MONO # 1.5 10^3/uL (0.0-0.8); NEUTROPHILS # 11.9 10^3/uL (1.5-8.5); NEUTROPHILS % 77.9 % (36.0-66.0); RED BLOOD COUNT 3.15 10^6/uL (4.30-6.10); WHITE BLOOD COUNT 15.3 10^3/uL (4.0-10.0)
[2019-07-03 08:49] LABS: PLATELET COUNT, AUTOMATED 1090 10^3/uL (150-450)
[2019-07-03] MEDS ORDERED: FLAG500T PO (12:24)
[2019-07-03] MEDS ORDERED: CIPR-249 PO (12:24)
[2019-07-03] MEDS ORDERED: FLUC10TA PO ×2 (12:24→14:32)
[2019-07-03] MEDS ORDERED: ASPI81TAEC PO (12:24)
--- NOTE | 2019-07-03 12:46 | IPNPDOC ---
Subjective Date Seen The patient was seen on 07/03/19. Subjective Chief Complaint/HPI Román is fine this morning, afebrile. Looks great. Objective Physical Examination General Exam: Positive: Alert, No Acute Distress Eye Exam: Negative: Sclera icteric Neck Exam: Positive: Supple Chest Exam: Positive: Clear to auscultation Heart Exam: Positive: Rate Normal Abdomen Exam: Positive: Normal bowel sounds, BS Hyperactive, Other (ostomy in place) Extremity Exam: Negative: Clubbing, Cyanosis, Edema Skin Exam: Positive: Nl turgor and temperature Neuro Exam: Positive: Normal Gait, Normal Speech Assessment /Plan Assessment # s/p sigmoidectomy & rt colon resection with anastomotic leak; - On fluconazole, Flagyl, Cipro x 2 wks - home today # Colon Adenocarcinoma lymph nodes negative x10 follow up o/p Oncology # Essential Thrombocytosis Per peripheral smear, likely reactionary versus 2/2 malignancy Started on aspirin 81 mg twice a day to prevent thromboembolic event Also on Lovenox Will require outpatient follow-up with hematology/oncology # Hx of C. difficile colitis Plan/VTE VTE Prophylaxis Ordered?: Yes VS, I&O, 24H, Fishbone Vital Signs/I&O Vital Signs Date Time Temp Pulse Resp B/P (MAP) Pulse Ox O2 Delivery O2 Flow Rate FiO2 07/03/19 06:00 98.5 94 18 103/67 (79) 98 Room Air I&O- Last 24 Hours up to 6 AM 07/03/19 06:00 Intake Total 1200 ml Output Total 0 ml Balance 1200 ml Laboratory Data 24H LABS Laboratory Tests 2 07/03/19 08:31: Immature Granulocyte % (Auto) 0.8, Neutrophils (%) (Auto) 77.9H, Lymphocytes (%) (Auto) 10.5L, Monocytes (%) (Auto) 10.0H, Eosinophils (%) (Auto) 0.5, Basophils (%) (Auto) 0.3, Neutrophils # (Auto) 11.9H, Lymphocytes # (Auto) 1.6, Monocytes # (Auto) 1.5H, Eosinophils # (Auto) 0.1, Basophils # (Auto) 0.0, Nucleated Red Blood Cells % (auto) 0.0 CBC/BMP Laboratory Tests 07/03/19 08:31 SARA FUNES MD Jul 03, 2019 12:46
== END 2019-07-03 14:30 | disposition home or self-care (01) | DRG 221 ==
LOC: EDSEX 07:30 → M ED 07:30 → EDBD 07:30 → M ED INP 09:31 → ENRESERV 09:56 → M ICU 10:45 → M MSPAV 06-25 14:25
PROVIDERS: ADMIT Internal Medicine; ATTEND Internal Medicine
PROC: 0D1B0J4 Bypass Ileum to Cutaneous with Synthetic Substitute, Open Approach (ICD-10-PCS; 2019-06-22)
PROC: 02H Heart and Great Vessels, Insertion (ICD-10-PCS; 2019-06-22)
PROC: 30233N1 Transfusion of Nonautologous Red Blood Cells into Peripheral Vein, Percutaneous Approach (ICD-10-PCS; 2019-06-22)
PROC: 0DBB0ZZ Excision of Ileum, Open Approach (ICD-10-PCS; principal; 2019-06-22 11:09)
PROC: 0DC60ZZ Extirpation of Matter from Stomach, Open Approach (ICD-10-PCS; 2019-06-23)
PROC: 02HV33Z Insertion of Infusion Device into Superior Vena Cava, Percutaneous Approach (ICD-10-PCS; 2019-06-23)
PROC: 3E0436Z Introduction of Nutritional Substance into Central Vein, Percutaneous Approach (ICD-10-PCS; 2019-06-23)
DX: K91.89 Other postprocedural complications and disorders of digestive system (principal); R64 Cachexia; K65.9 Peritonitis, unspecified; J90 Pleural effusion, not elsewhere classified; A04.72 Enterocolitis due to Clostridium difficile, not specified as recurrent; C18.9 Malignant neoplasm of colon, unspecified; E46 Unspecified protein-calorie malnutrition; F11.20 Opioid dependence, uncomplicated; E87.1 Hypo-osmolality and hyponatremia; J98.11 Atelectasis; E87.6 Hypokalemia; D64.9 Anemia, unspecified; D47.3 Essential (hemorrhagic) thrombocythemia; Z90.49 Acquired absence of other specified parts of digestive tract; Z79.899 Other long term (current) drug therapy; Z68.1 Body mass index [BMI] 19.9 or less, adult

== ENCOUNTER → 2019-07-28 | Outpatient (CLI) | payer OTHER ==
[~2019-07-28] MED LIST changes: +ASPI81TAEC PO; +CIPR-249 PO; +COLA100C5 PO; +FLUC10TA PO; +GNP8.6TA PO; +METR-265 PO
--- NOTE | 2019-07-29 11:17 | REP ---
PET/CT: HISTORY: Staging colon cancer. Right colon and sigmoid colon. Status post surgery. COMPARISONS: Comparison CT study of the abdomen and pelvis June 29, 2019. TECHNIQUE: 48 minutes following the intravenous injection of a 8.66 mCi dose of F-18 FDG, three-dimensional PET scintigraphy is acquired from the skull base to the proximal thighs. Triplanar noncontrast CT scanning is acquired through the same anatomic range for attenuation correction, and image registration with scan parameters optimized to minimize radiation exposure to the patient. PET scintigraphy and CT datasets were fused and displayed on a workstation with multiplanar and projection display capability. PET/CT FINDINGS: There is a diffuse prominence of skeletal muscle and extraabdominal and extrathoracic soft tissue uptake. This is apparently related to the patient's feeling unwell and having a cough after the injection and before the scan. This subcutaneous fatty tissue appears metabolically active throughout. This could conceivably negatively impact the sensitivity of this scan. Apart from this diffuse soft tissue musculoskeletal uptake, head and neck soft tissues are unremarkable. There is no abnormal hypermetabolic uptake in either hilar region or in the mediastinum. No abnormal pulmonary parenchymal hypermetabolic uptake or abnormal opacities seen. In the abdomen and pelvis there are two enterostomies noted along the anterior abdominal wall. There is diffuse uptake of retroperitoneal and subcutaneous fat suggesting metabolically active of brown fat distribution. Ischial rectal fat is seen to be metabolically active as well. No soft tissue mass is seen. No kirti hypermetabolic uptake is seen. There is a somewhat linear area of increased uptake along the lateral wall of the upper stomach anterior to the spleen. Maximum standard uptake value in this area is 5.91. No soft tissue mass is resolved in this location on accompanying CT and this may be metabolic reactive fat as well. IMPRESSION: The patient's subcutaneous and retroperitoneal fat is diffusely metabolically active. There is normal variant skeletal muscle uptake as well. These are incidental findings. Equivocal focus of uptake in the left upper quadrant subphrenic along the lateral wall of the stomach. No other suspicious hypermetabolic focus seen. Electronically Signed by Jarett Fitzgerald MD 07/29/2019 01:28 P
== END ==
LOC: M PLARAD 15:21
PROVIDERS: ATTEND Internal Medicine Hematology
DX: C18.8 Malignant neoplasm of overlapping sites of colon (principal)
CPT/HCPCS: 78815; A9552

== ENCOUNTER → 2019-08-28 | Outpatient (CLI) | payer OTHER ==
[~2019-08-28] MED LIST changes: +DRON5CAP13 PO; +LIDOCAINE 1% MDV 20ML VIAL As Ordered ONE; +MIDAZOLAM INJ 2MG/2ML VIAL (J2250 PER 1MG) As Ordered ONE; +ONDA8TAB8 PO; +PROMETHAZINE INJ 25 MG/ML VIAL (J2550) As Ordered ONE; +ceFAZolin 1GM VIAL (J0690 PER 500MG) As Ordered ONE; +diphenhydrAMINE 50MG/ML VIAL (J1200) As Ordered ONE; +fentaNYL 100 MCG/2 ML INJECTION (J3010) As Ordered ONE
--- NOTE | 2019-08-28 12:07 | IRHP ---
[facility] Pre-Procedure H & P General Date of Service: Aug 28, 2019 Procedure: Same Day Surgery Interval History and Physical I have seen the patient and reviewed last H & P performed within 30 days. There is no significant interval change. History of Present Illness Chief Complaint The patient is a 44-year-old male admitted with a reason for visit of Colon Ca. PRE-PROCEDURE DIAGNOSIS:colon ca HEART: normal rate. LUNGS: normal breathing at rest. ASA Classification ASA Classification: II-Mild systemic disease Mallampati Score: II NPO: Yes Problems with prior sedation: No Obstructive Sleep Apnea: No Plan moderate sedation Allergies Coded Allergies: No Known Allergies (Unverified , 04/13/18) Home Medications Scheduled Buprenorphine HCl/Naloxone HCl (Suboxone 8 mg-2 mg Sl Film), 1 FILM SL DAILY, (Reported) Dronabinol (Dronabinol), 5 MG PO BID Scheduled PRN Ondansetron (Ondansetron Odt), 8 MG PO Q8HP PRN for NAUSEA VS, I&O, 24H, Fishbone Vital Signs/I&O Vital Signs Date Time Temp Pulse Resp B/P (MAP) Pulse Ox O2 Delivery O2 Flow Rate FiO2 08/28/19 11:20 98.2 104 16 96 Room Air KELLEN RICO MD Aug 28, 2019 12:07
[2019-08-28 14:30] VITALS: BP 106/55
--- NOTE | 2019-08-28 16:04 | REP ---
IR Ultrasound and fluoroscopy-guided port placement. IR Ultrasound of the neck. IR Moderate sedation. Clinical information: Colon cancer. Physician: Dr. Granger. Procedure: The patient was advised of the benefits, risks, and alternatives of the procedure and informed consent was obtained. A time-out was performed with verification of the patient's name, MRN, site of procedure and type of procedure to be performed. The patient was positioned in the supine position on the angiographic table. The site was prepped and draped in the usual sterile fashion. Moderate sedation was performed by the physician including the presence of an independent trained observer who assisted and monitored the patient's level of consciousness and physiologic status. Following the administration of Fentanyl and Versed, the physician spent 45 minutes of continuous face to face time with the patient. Ultrasound of the neck reveals a patent and compressible right internal jugular vein. A medical records supervisor radiograph reveals no gross abnormality. The neck and anterior chest wall were anesthetized with lidocaine. The right internal jugular vein was accessed using a microintroducer needle under ultrasound guidance, via a lateral approach. An 018 wire was advanced into the superior vena cava, the needle was removed and a microsheath was placed. An Amplatz wire was then passed into the inferior vena cava. An incision at the internal jugular vein access site and anterior chest wall were made using a scalpel. An incision was made at the anterior chest wall. A small pocket was created using a combination of blunt and sharp dissection. A tunneling device was then used to pass the catheter from the pocket to the neck puncture site. An 8-[place] Angi[employer] smart power port was then positioned in the pocket. The catheter was then measured and cut. The introducer sheath was exchanged for a peel-away sheath. The catheter was passed through the peel-away sheath into the internal jugular vein and the peel-away sheath was removed. The port tip was positioned at the cavo atrial junction. The port was then accessed with a Corral needle. The port flushes and aspirates well. The puncture site in the neck was closed. The chest wall incision was then closed with 2-0 Vicryl and 4-0 Monocryl. Glue and Steri-Strips were applied. A sterile dressing was then applied. The patient tolerated the procedure well and was returned to the PRU in stable condition. Estimated blood loss: <5 ml. Complications: None. Conclusion: 1. Successful placement of an 8-[place] Ang[employer] smart power port via the right internal jugular vein. The port is ready for immediate use. 2. Patient to follow up in IR clinic in 2 weeks. Thank you for this referral. Electronically Signed by So Granger MD 08/28/2019 01:01 P
== END ==
LOC: M IRPRO 11:05
PROVIDERS: ATTEND Radiology Diagnostic Radiology
DX: C18.9 Malignant neoplasm of colon, unspecified (principal)

== ENCOUNTER 2019-09-03 03:11 | Emergency (ER) | payer OTHER ==
[~2019-09-03] VITALS: Ht 175.3 cm; Wt 59.1 kg
[2019-09-03 04:19] LABS: ABG O2 SATURATION 98.9 % (95.0-99.0); ABG PARTIAL PRESSURE CO2 26.7 mmHg (35.0-45.0); ABG PARTIAL PRESSURE O2 131.6 mmHg (75.0-100.0); ABG TOTAL CO2 19.8 MEQ/L (22.0-29.0)
[2019-09-03 04:26] LABS: BASO % 0.4 % (0.0-1.0); EOS % 0.2 % (0.0-3.0); HEMOGLOBIN 15.1 g/dl (13.5-17.5); LYMPH # 3.5 10^3/uL (1.5-5.0); LYMPH % 34.6 % (24.0-44.0); MEAN CORPUSCULAR HEMOGLOBIN 30.7 pg (27.0-33.0); MEAN CORPUSCULAR HGB CONC 33.6 g/dl (32.0-36.5); MEAN CORPUSCULAR VOLUME 91.5 fl (80.0-96.0); MONO # 0.8 10^3/uL (0.0-0.8); NEUTROPHILS # 5.7 10^3/uL (1.5-8.5); NEUTROPHILS % 56.5 % (36.0-66.0); PLATELET COUNT, AUTOMATED 296 10^3/uL (150-450); RED BLOOD COUNT 4.92 10^6/uL (4.30-6.10)
[2019-09-03 04:45] LABS: INR 0.93; PROTHROMBIN TIME 12.2 SECONDS (11.8-14.0)
[2019-09-03 04:46] LABS: PARTIAL THROMBOPLASTIN TIME 26.4 SECONDS (25.0-38.4)
[2019-09-03 04:48] LABS: D-DIMER QUANT 919.7 ng/ml (<500)
[2019-09-03 04:49] LABS: ALBUMIN 3.7 GM/DL (3.2-5.2); ALT/SGPT 36 U/L (12-78); BILIRUBIN,DIRECT < 0.1 MG/DL (0.0-0.2); BILIRUBIN,TOTAL 0.3 MG/DL (0.2-1.0); BLOOD UREA NITROGEN 17 MG/DL (7-18); CALCIUM LEVEL 9.4 MG/DL (8.5-10.1); CARBON DIOXIDE LEVEL 30 MEQ/L (21-32); CHLORIDE LEVEL 104 MEQ/L (98-107); CK-MB VALUE MASS < 1.0 NG/ML (<3.6); CPK CREATINE PHOSPHOKINASE 40 U/L (39-308); GLOMERULAR FILTRATION RATE > 60.0 (>60); GLUCOSE, FASTING 91 MG/DL (70-100); LDH LACTATE DEHYDROGENASE 160 U/L (87-241); POTASSIUM SERUM 4.3 MEQ/L (3.5-5.1); SODIUM LEVEL 140 MEQ/L (136-145); TOTAL PROTEIN 7.2 GM/DL (6.4-8.2); TROPONIN I < 0.02 NG/ML (< 0.10)
[2019-09-03] MEDS ORDERED: COMBIVENT RESPIMAT 100-20MCG INHALER 4GM INH ONE (05:00)
[2019-09-03] MEDS ORDERED: ISOVUE-370 76% 100ML VIAL As Ordered ONE (05:03)
--- NOTE | 2019-09-03 05:44 | REPVR ---
PROCEDURE INFORMATION: Exam: CT Angiography Chest With Contrast Exam date and time: 09/03/2019 4:58 AM Age: 44 years old Clinical indication: Shortness of breath; Chest pain; Type not specified; Additional info: Dysp TECHNIQUE: Imaging protocol: Computed tomographic angiography of the chest with intravenous contrast. 3D rendering: MIP and/or 3D reconstructed images were created by the technologist. Radiation optimization: All CT scans at this facility use at least one of these dose optimization techniques: automated exposure control; mA and/or kV adjustment per patient size (includes targeted exams where dose is matched to clinical indication); or iterative reconstruction. Contrast material: ISO; Contrast volume: 75 ml; Contrast route: AC; COMPARISON: CT Chest without contrast 06/16/2019 10:03 AM FINDINGS: Tubes, catheters and devices: Right chest MediPort. Pulmonary arteries: Normal. No pulmonary emboli. Aorta: Dilated aortic root measuring up to 5 cm. Lungs: Bilateral dependent atelectasis. Emphysema. Bilateral tree-in-bud opacities suggestive of bronchiolitis. Biapical scarring. Pleural space: Unremarkable. No pneumothorax. No pleural effusion. Heart: Unremarkable. No cardiomegaly. No pericardial effusion. Lymph nodes: Unremarkable. No enlarged lymph nodes. Bones/joints: Unremarkable. No acute fracture. Soft tissues: Unremarkable. IMPRESSION: Dilated aortic root measuring up to 5 cm. No evidence of thoracic aortic dissection. No acute pulmonary embolic disease. Findings suggestive of bronchiolitis. Electronically signed by: Salazar Mae On 09/03/2019 05:43:45 AM
[2019-09-03] MEDS ORDERED: ASPIRIN 325 MG TAB PO ONE (05:45)
[2019-09-03 06:00] VITALS: BP 125/69
[2019-09-03] MEDS ORDERED: dexameTHASONE 20MG/5ML VIAL (J1100 PER 1MG) IV ONE (06:00)
--- NOTE | 2019-09-03 08:53 | REP ---
REASON: Dyspnea. COMPARISON: The latest prior, frontal view obtained as part of an abdominal series, 06/25/2019. FINDINGS: The technique utilized in obtaining the radiograph has magnified the cardiac silhouette and accentuated the interstitial markings. The superior mediastinal structures are midline. The cardiac silhouette is unremarkable in size, shape, and position. The diaphragmatic surfaces of the lungs are regular, and the costophrenic angles are clear. The pulmonary castaneda are clear. The imaged osseous structures are intact. A central venous catheter is seen in lieu of a right-sided PICC line catheter. The tip is in the superior vena cava. IMPRESSION: There is no acute cardiopulmonary disease. Electronically Signed by Tacos Le DO 09/03/2019 09:01 A
--- NOTE | 2019-09-03 16:42 | ECGEPIP ---
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
== END 2019-09-03 06:43 | disposition left against medical advice (07) ==
LOC: M ED 03:11
DX: R06.00 Dyspnea, unspecified (principal); J21.9 Acute bronchiolitis, unspecified; R06.4 Hyperventilation; R05 Cough; R68.83 Chills (without fever); M79.606 Pain in leg, unspecified; C26.0 Malignant neoplasm of intestinal tract, part unspecified; Z87.891 Personal history of nicotine dependence; Z90.49 Acquired absence of other specified parts of digestive tract; Z79.899 Other long term (current) drug therapy
CPT/HCPCS: 36600; 71045; 71275; 80048; 80076; 82550; 82553; 82803; 83615; 84145; 85025; 85379; 85610; 85730; 86140; 87040; 87486; 87581; 87633; 87798; 93005; 96374; 99284; J1100; Q9967

== ENCOUNTER → 2019-09-03 | Outpatient (CLI) | payer OTHER ==
[~2019-09-03] MED LIST changes: -LIDOCAINE 1% MDV 20ML VIAL As Ordered ONE; -MIDAZOLAM INJ 2MG/2ML VIAL (J2250 PER 1MG) As Ordered ONE; +ONDA8TAB10 PO; -PROMETHAZINE INJ 25 MG/ML VIAL (J2550) As Ordered ONE; -ceFAZolin 1GM VIAL (J0690 PER 500MG) As Ordered ONE; -diphenhydrAMINE 50MG/ML VIAL (J1200) As Ordered ONE; -fentaNYL 100 MCG/2 ML INJECTION (J3010) As Ordered ONE
--- NOTE | 2019-09-04 19:23 | ECGEPIP ---
[facility] Test Date: 2019-09-03 Pat Name: EUN STEPHENSON Department: Room: - Gender: Male Spring Layer: : 1975 Requested By: KING Rodriguez Order Number: [id number] Reading MD: Abdoulaye Felix Measurements Intervals [place] Rate: 72 P: 50 SD: 147 QRS: 90 QRSD: 86 T: 71 QT: 380 QTc: 419 Interpretive Statements Normal sinus rhythm with PVCs Nonspecific T wave abnormality in lead V2 Compared to prior tracing of 09/03/2019, T wave abnormality is improved Electronically Signed on 09-04-2019 19:23:31 EDT by Abdoulaye Felix
== END ==
LOC: M EKG 10:43
PROVIDERS: ATTEND Internal Medicine Hematology
DX: C18.9 Malignant neoplasm of colon, unspecified (principal)

== ENCOUNTER → 2019-09-09 | Outpatient (POV) | payer OTHER ==
--- NOTE | 2019-09-10 19:28 | IRPN ---
[facility] IR Progress Note IR Progress Note DATE: September 30, 2019 Telemedicine consult FOLLOW-UP: status post port placement, port being used without issues. Patient denies swelling pain or discharge from site. ON EXAMINATION: no video available on patient side. IMPRESSION: Doing well status post port placement. No further follow up scheduled unless initiated by patient and/or referring provider. Thank you for this referral Allergies Coded Allergies: No Known Allergies (Unverified , 09/03/19) KELLEN RICO MD September 10, 2019 19:28
== END ==
LOC: M TMIRPOV 08:44
PROVIDERS: ATTEND Radiology Diagnostic Radiology
DX: Z45.2 Encounter for adjustment and management of vascular access device (principal)

== ENCOUNTER 2019-11-06 04:40 | Emergency (ER) | payer OTHER ==
[~2019-11-06] VITALS: Ht 175.3 cm; Wt 68.2 kg
[~2019-11-06 04:40] MED LIST changes: +NIFE10CA2 PO
[2019-11-06] MEDS ORDERED: NS 1,000 ML IV ONE (05:15)
[2019-11-06] MEDS ORDERED: ONDANSETRON 4MG/2ML VIAL IV ONE (05:15)
[2019-11-06] MEDS ORDERED: ISOVUE-370 76% 100ML VIAL As Ordered ONE (05:18)
[2019-11-06 05:36] LABS: BASO % 0.3 % (0.0-1.0); EOS # 0.1 10^3/uL (0.0-0.5); HEMATOCRIT 43.4 % (42.0-52.0); HEMOGLOBIN 14.5 g/dl (13.5-17.5); LYMPH # 1.9 10^3/uL (1.5-5.0); LYMPH % 20.6 % (24.0-44.0); MEAN CORPUSCULAR HEMOGLOBIN 31.2 pg (27.0-33.0); MEAN CORPUSCULAR HGB CONC 33.4 g/dl (32.0-36.5); MEAN CORPUSCULAR VOLUME 93.3 fl (80.0-96.0); MONO # 1.3 10^3/uL (0.0-0.8); MONO % 14.2 % (0.0-5.0); NEUTROPHILS # 5.7 10^3/uL (1.5-8.5); NEUTROPHILS % 63.2 % (36.0-66.0); PLATELET COUNT, AUTOMATED 144 10^3/uL (150-450); RED BLOOD COUNT 4.65 10^6/uL (4.30-6.10)
[2019-11-06 05:54] LABS: ALBUMIN 3.7 GM/DL (3.2-5.2); ALT/SGPT 63 U/L (12-78); BILIRUBIN,DIRECT < 0.1 MG/DL (0.0-0.2); BILIRUBIN,TOTAL 0.3 MG/DL (0.2-1.0); LIPASE 156 U/L (73-393); TOTAL PROTEIN 6.8 GM/DL (6.4-8.2)
[2019-11-06] MEDS: GASTROGRAFIN SOLUTION 30ML PO SCH ×2 (06:06→06:49)
[2019-11-06] MEDS: MORPHINE 4 MG/ML 1ML VIAL/SYRINGE (J2270) IV PRN ×2 (06:08→07:19)
--- NOTE | 2019-11-06 07:17 | REPVR ---
PROCEDURE INFORMATION: Exam: CT Abdomen And Pelvis With Contrast Exam date and time: 11/06/2019 5:09 AM Age: 44 years old Clinical indication: Abdominal pain; Localized; Left lower quadrant (llq); Prior surgery; Surgery date: 1-6 months; Surgery type: Iliostomy; Additional info: Llq abd pain TECHNIQUE: Imaging protocol: Computed tomography of the abdomen and pelvis with intravenous contrast. Radiation optimization: All CT scans at this facility use at least one of these dose optimization techniques: automated exposure control; mA and/or kV adjustment per patient size (includes targeted exams where dose is matched to clinical indication); or iterative reconstruction. Contrast material: ISO; Contrast volume: 100 ml; Contrast route: INTRAVENOUS (IV); Other contrast: Oral, graphin, 600; COMPARISON: CT ABD/PEL W/IV ORAL CONTRAS 06/29/2019 11:12 AM FINDINGS: Lungs: The visualized portions of the lung bases are normal. Liver: There is a diffuse decrease in attenuation of the liver, consistent with fatty liver. Gallbladder and bile ducts: The gallbladder appears partially contracted. No stones are identified. No biliary ductal dilation is seen. There is no biliary ductal dilation. Pancreas: The pancreas is normal with no ductal dilation. Spleen: The spleen is normal. Adrenals: The adrenal glands are normal. Kidneys and ureters: There is slight fullness of the left renal calices and there is fullness and a suggestion of mild thickening of the left ureter. No stones are identified. There is mild left perinephric stranding. The nephrograms are symmetric. There is no right-sided hydronephrosis. The nondilated right ureters is difficult to trace distally. Stomach and bowel: There is an ostomy in the right mid abdomen, which is probably an ileostomy. There is an ostomy in the left mid abdomen which appears to be a colostomy. There is a suture line in the distal colon which appears to be a Anyi's pouch. There is no dilation or gross thickening of the small bowel or the colon. The oral contrast is seen in the stomach and proximal small bowel loops only. Appendix: The appendix is not identified and has probably been resected. Intraperitoneal space: Multiple surgical clips are seen on the right side of the abdomen. There is no free intraperitoneal air. There is no evidence of free intraperitoneal or pelvic fluid. Vasculature: Atherosclerotic changes are present in the abdominal aorta and the iliac arteries. No aortic aneurysm. There is an apparent filling defect in the right external iliac/proximal femoral vein, suspicious for thrombus but could be related to mixing of unopacified and opacified blood. Lymph nodes: No lymphadenopathy is seen. Bladder: The bladder is mildly distended. There is no bladder wall thickening. No bladder stones identified. Reproductive: The prostate gland appears normal. Bones/joints: There is evidence of degenerative disc disease, most prominent at the L5-S1 level. Soft tissues: Unremarkable. IMPRESSION: 1. No dilation or gross thickening of the bowel. Two ostomies again identified. 2. Fullness of the calices in the left kidney and fullness in slight thickening of the left ureter, which may be due to a urinary tract infection or recently passed stone. No stones identified. There is mild left perinephric stranding but the nephrograms appear symmetric. 3. Probable thrombus in the right external iliac/proximal femoral vein. Follow-up with Doppler ultrasound is recommended. Electronically signed by: Swathi An On 11/06/2019 07:17:06 AM
[2019-11-06 08:15] VITALS: BP 117/78
--- NOTE | 2019-11-06 08:24 | REP ---
Clinical: Right lower extremity pain and swelling . Technique: Miller scale and color Doppler evaluation using linear high frequency transducer. Findings: There is an area of nonocclusive thrombus at the transition from external iliac vein to the common femoral vein. Ultrasound examination of the right lower extremity deep venous structures from the common femoral vein to the popliteal vein demonstrates normal compressibility flow and wave patterns in response to respiration and augmentation. Impression: 1. No evidence for deep venous thrombosis involving the common femoral vein through popliteal vein. 2. Small area of nonocclusive thrombus noted in the external iliac vein/common femoral vein junction. Electronically Signed by Marco Coon MD 11/06/2019 08:16 A
[2019-11-06] MEDS ORDERED: RIVAROXABAN 15 MG TAB (XARELTO) PO ONE (08:45)
[2019-11-06] MEDS ORDERED: XARE15TA PO (08:47)
[2019-11-06 09:01] LABS: INR 0.96; PROTHROMBIN TIME 12.5 SECONDS (11.8-14.0)
[2019-11-06 09:02] LABS: PARTIAL THROMBOPLASTIN TIME 27.4 SECONDS (25.0-38.4)
== END 2019-11-06 09:07 | disposition home or self-care (01) ==
LOC: M ED 04:40
DX: I82.421 Acute embolism and thrombosis of right iliac vein (principal); C18.9 Malignant neoplasm of colon, unspecified
CPT/HCPCS: 74177; 80047; 80076; 81001; 83690; 85025; 85610; 85730; 87040; 93041; 93971; 96374; 96375; 96376; 99285; J2270; J2405; Q9963; Q9967

== ENCOUNTER → 2019-11-11 | Outpatient (REF) | payer OTHER ==
[~2019-11-11] MED LIST changes: +ELIQ5TAB PO; +XARE15TA PO
== END ==
LOC: M LAB REF 08:28
PROVIDERS: ATTEND Family Medicine Addiction Medicine
DX: F11.188 Opioid abuse with other opioid-induced disorder (principal)

== ENCOUNTER → 2020-01-06 | Outpatient (REF) | payer OTHER | LOC: M LAB REF 08:50 | PROVIDERS: ATTEND Family Medicine Addiction Medicine | DX: F11.188 Opioid abuse with other opioid-induced disorder (principal) ==

== ENCOUNTER → 2020-03-20 | Outpatient (CLI) | payer OTHER | LOC: M LABSMTC 08:13 | PROVIDERS: ATTEND Anesthesiology | DX: Z01.812 Encounter for preprocedural laboratory examination (principal); Z20.828 Contact with and (suspected) exposure to other viral communicable diseases ==

== ENCOUNTER 2020-03-25 11:00 | Day surgery (SDC) | payer OTHER ==
[~2020-03-25] VITALS: Ht 175.3 cm; Wt 60.7 kg
[~2020-03-25 11:00] MED LIST changes: +NS 1,000 ML IV ONE
[2020-03-25] MEDS ORDERED: propofoL 200 MG/20 ML VIAL As Ordered ONE (11:47)
[2020-03-25] MEDS ORDERED: LIDOCAINE 2% 100MG/5ML SDV (FOR ANES.) As Ordered ONE (11:57)
[2020-03-25] MEDS ORDERED: PHENYLephrine HCL 500 MCG/5 ML (100MCG/ML) SYRINGE (J2370) As Ordered ONE (11:58)
--- NOTE | 2020-03-25 12:11 | ROOR ---
Patient Name: Yfn Huntley Procedure Date: 03/25/2020 11:54 AM Date of : 1975 Age: 44 Room: [facility] Gender: Male Note Status: Finalized Procedure: Colonoscopy Indications: High risk colon cancer surveillance: Personal history of colon cancer Providers: Laron Crain Jr, MD Referring MD: Daniel QURESHI MD Requesting Provider: Medicines: Propofol per Anesthesia Complications: No immediate complications. Procedure: Pre-Anesthesia Assessment: - Prior to the procedure, a History and Physical was performed, and patient medications and allergies were reviewed. The patient is competent. The risks and benefits of the procedure and the sedation options and risks were discussed with the patient. All questions were answered and informed consent was obtained. Patient identification and proposed procedure were verified by the physician and the nurse in the pre-procedure area and in the procedure room. Mental Status Examination: alert and oriented. Airway Examination: normal oropharyngeal airway and neck mobility. Respiratory Examination: clear to auscultation. CV Examination: normal. ASA Grade Assessment: II - A patient with mild systemic disease. After reviewing the risks and benefits, the patient was deemed in satisfactory condition to undergo the procedure. The anesthesia plan was to use moderate sedation / analgesia (conscious sedation). Immediately prior to administration of medications, the patient was re-assessed for adequacy to receive sedatives. The heart rate, respiratory rate, oxygen saturations, blood pressure, adequacy of pulmonary ventilation, and response to care were monitored throughout the procedure. The physical status of the patient was re-assessed after the procedure. The Endoscope was introduced through the sigmoid colostomy and advanced to the transverse colon suture line The colonoscopy was performed without difficulty. The patient tolerated the procedure well. The quality of the bowel preparation was adequate. Findings: The recto-sigmoid colon, mid sigmoid colon, distal sigmoid colon, splenic flexure and transverse colon appeared normal. The colon length from suture line to ostomy was 25cm The rectal stump/sigmoid colon length was 25 cm A small polyp was found in the rectum. The polyp was removed with a cold snare. Resection and retrieval were complete. To prevent bleeding after the biopsy, one hemostatic clip was successfully placed. There was no bleeding at the end of the procedure. Impression: - The recto-sigmoid colon, mid sigmoid colon, distal sigmoid colon, splenic flexure and transverse colon are normal. - One small polyp in the rectum, removed with a cold snare. Resected and retrieved. Clip was placed. Recommendation: - Return to my office in 1 week. Procedure Code(s): --- Professional --- 52804, Colonoscopy through stoma; with removal of tumor(s), polyp(s), or other lesion(s) by snare technique Diagnosis Code(s): --- Professional --- Z85.038, Personal history of other malignant neoplasm of large intestine K62.1, Rectal polyp CPT copyright 2019 [employer]. All rights reserved. The codes documented in this report are preliminary and upon label coder review may be revised to meet current compliance requirements. Laron Crain MD Laron Crain Jr, MD 03/25/2020 12:10:20 PM Electronically signed by Laron Crain Jr, MD Number of Addenda: 0 Note Initiated On: 03/25/2020 11:54 AM Estimated Blood Loss: Estimated blood loss: none.
[2020-03-25 12:36] VITALS: BP 124/79
== END 2020-03-25 12:38 | disposition home or self-care (01) ==
LOC: M OPP 11:00
PROVIDERS: ATTEND Surgery
DX: Z12.11 Encounter for screening for malignant neoplasm of colon (principal); Z85.038 Personal history of other malignant neoplasm of large intestine; D12.6 Benign neoplasm of colon, unspecified; Z93.3 Colostomy status; F17.210 Nicotine dependence, cigarettes, uncomplicated; D64.9 Anemia, unspecified; Z86.718 Personal history of other venous thrombosis and embolism; Z79.01 Long term (current) use of anticoagulants; Z79.899 Other long term (current) drug therapy
CPT/HCPCS: 44394; 88305; J2370

== ENCOUNTER → 2020-04-28 | Outpatient (REF) | payer OTHER ==
[~2020-04-28] MED LIST changes: -NS 1,000 ML IV ONE
== END ==
LOC: M LAB REF 11:08
PROVIDERS: ATTEND Family Medicine Addiction Medicine
DX: F11.10 Opioid abuse, uncomplicated (principal)

== ENCOUNTER → 2020-05-03 | Outpatient (CLI) | payer SELFPAY | LOC: M LABSMTC 14:03 | PROVIDERS: ATTEND Pediatrics | DX: Z20.828 Contact with and (suspected) exposure to other viral communicable diseases (principal) ==

== ENCOUNTER → 2020-05-25 | Outpatient (REF) | payer OTHER | LOC: M LAB REF 17:22 | PROVIDERS: ATTEND Family Medicine Addiction Medicine | DX: F11.10 Opioid abuse, uncomplicated (principal) ==

== ENCOUNTER → 2020-06-05 | Outpatient (CLI) | payer SELFPAY | LOC: M LABSMTC 08:29 | PROVIDERS: ATTEND Pediatrics | DX: Z20.822 Contact with and (suspected) exposure to COVID-19 (principal) ==

== ENCOUNTER → 2020-06-09 | Outpatient (CLI) | payer SELFPAY | LOC: M LABSMTC 09:36 | PROVIDERS: ATTEND Pediatrics | DX: Z20.822 Contact with and (suspected) exposure to COVID-19 (principal) ==

== ENCOUNTER 2020-06-19 14:37 | Emergency (ER) | payer OTHER ==
[~2020-06-19] VITALS: Ht 175.3 cm; Wt 57.6 kg
[~2020-06-19 14:37] MED LIST changes: +SODIUM CHLORIDE 0.9% INJ 10 ML SYR IV SCH
--- OUTSIDE RECORDS SUMMARY | 2020-06-19 14:42 | CCD ---
Continuity of Care Document (CCD) Created on: 06/01/2020 Yfn Huntley External Reference #: [id number] : 1975 Sex: Male Author Author Yfn HENDERSON MD Organization Unknown Address [address] [place] [address] Phone [phone] Care Team Providers Care Linen Supervisor Name Role Phone Daniel Henderson MD AUTM Unavailable Laron Crain MD AUTM [phone] Problems Description No Information Available Social History Type Date Description Comments ETOH Use Denies alcohol use Tobacco Use Start: Unknown Current Allergies, Adverse Reactions, Alerts Description No Known Drug Allergies Medications Active Medications SIG Qnty Indications Ordering Provide r Date Suboxone 8-2mg Film Unknown Eliquis 5mg Tablets Unknown Immunizations Description No Information Available Vital Signs Date Vital Result Comment 05/31/2020 2:15pm BP Systolic 107 mmHg BP Diastolic 69 mmHg Heart Rate 92 /min Body Temperature 99.0 F Respiratory Rate 12 /min Height 69 inches 5'9" Weight 140.00 lb BMI (Body Mass Index) 20.7 kg/m2 Results Description No Information Available Procedures Description No Information Available Medical Devices Description No Information Available Encounters Type Date Location Provider Dx Diagnosis Office Visit 05/31/2020 2:45p [facility] Orestes Henderson MD Z85.038 Personal history of malignant neoplasm of large intestine Z93.2 Ileostomy status Z93.3 Colostomy status Z86.718 Personal history of other ve nous thrombosis and embolism Assessments Date Code Description Provider 05/31/2020 Z85.038 History of malignant neoplasm of colon Orestes Henderson MD 05/31/2020 Z93.2 Ileostomy present Orestes Henderson MD 05/31/2020 Z93.3 Colostomy present Orestes Henderson MD 05/31/2020 Z86.718 H/O: Deep vein thrombosis Orestes ivan MD Plan of Treatment 05/31/2020 - Orestes Henderson MD* Z85.038 History of malignant neoplasm of colon * Z93.2 Ileostomy present* Comments:* I told Mr. Huntley in my opinion it would be advisable to try to preserve as much colon as possible. I would recommend attempting to do a takedown of his colostomy and ileostomy with 2 anastomoses, one being the ileal transverse anastomosis and the second being the colostomy to Dillon pouch anastomosis. He supposedly has 30 cm of transverse colon and anus, rectum and sigmoid, and this would give him a good length of: Severity would probably not have significant problems with bowel control or diarrhea. I told him that I did not think that this could be done either laparoscopically or utilizing the robot due to the amount of scarring he probably has and the 2 ostomies and Dillon's pouch. I think he is going to need an open operation. He really doesn't care, but just wants to have his ostomies eliminated. He states that he would like to have this procedure done in [place] and arrangements for this will be made. * Z93.3 Colostomy present * Z86.718 H/O: Deep vein thrombosis Functional Status Description No Information Available Mental Status Description No Information Available Referrals Description No Information Available
--- OUTSIDE RECORDS SUMMARY | 2020-06-19 14:43 | CCD ---
Author Organization Unknown Address [address] [place] [address] Phone [phone] Care Team Providers Care Junior Programmer Analyst Name Role Phone Daniel Henderson Unavailable Unavailable Allergies Code Code System Name Reaction Severity Status Onset NKDA Medications Name Status Start Date Stop Date buprenorphine 8 mg-naloxone 2 mg subling ual film Place 1 film by sublingual route. Active Not a vailable dronabinol 5 mg capsule Completed 03/01/20 Eliquis Active Not available Problems Name Status Onset Date Source Opioid Abuse Active 11/27/2018 History Malignant Tumor of Ascending Colon Active 07/17/2019 History Colostomy Present Active 07/17/2019 History Procedure by Method Active 10/21/2019 History Procedures Date Name Performed by Partial Resection of Colon Information n ot available Colonoscopy Information not avai lable Notes: colectomy, stoma x 2 Results Lab Results None recorded. Past Encounters 04/27/2020 Opioid Abuse Daniel Henderson MD: [address] [place] [address], Ph. 03/29/2020 Opioid Abuse Daniel Henderson MD: [address] [place] [address], Ph. 03/01/2020 Opioid Abuse Daniel Henderson MD: [address] [place] [address], Ph. Social History Tobacco Smoking Status Heavy Tobacco Smoker (1 PPD) Vaccine List None recorded. Plan of Care Reminders Provider Appointments None recorded. Lab None recorded. Referral None recorded. Procedures None recorded. Surgeries None recorded. Imaging None recorded. Vitals 04/27/2020 10:20AM MAT Height Weight BMI Blood Pressure 69 in 136 lbs 16 oz 20.2 kg/m2 107/60 mm[Hg] 03/29/2020 11:20AM MAT Height Weight BMI 69 in 134 lbs 19.8 kg/m2 03/01/2020 11:20AM MAT Height Weight BMI Blood Pressure 69 in 134 lbs 19.8 kg/m2 130/101 mm[Hg] 12/16/2019 Height Weight Blood Pressure 69 in 128 lbs 116/80 mm[Hg] 11/24/2019 Height Weight Blood Pressure 69 in 134 lbs 126/88 mm[Hg] 10/21/2019 Height Weight Blood Pressure 69 in 134 lbs 105/73 mm[Hg] 09/23/2019 Height Blood Pressure 69 in 119/84 mm[Hg] 08/27/2019 Height Weight Blood Pressure 69 in 134 lbs 109/80 mm[Hg] 07/30/2019 Height Weight Blood Pressure 69 in 124 lbs 115/72 mm[Hg] 07/17/2019 Height Weight Blood Pressure 69 in 116 lbs 12.8 oz 109/76 mm[Hg] 04/01/2019 Height Weight Blood Pressure 69 in 134 lbs 9.6 oz 118/79 mm[Hg] 03/11/2019 Height Weight Blood Pressure 69 in 136 lbs 12.8 oz 142/76 mm[Hg] 02/18/2019 Height Weight Blood Pressure 69 in 134 lbs 8 oz 123/76 mm[Hg] 01/28/2019 Height Blood Pressure 69 in 123/71 mm[Hg] 01/15/2019 Height Weight Blood Pressure 69 in 135 lbs 4 oz 135/80 mm[Hg] 01/01/2019 Height Weight Blood Pressure 69 in 136 lbs 2.08 oz 110/69 mm[Hg] 12/18/2018 Height Weight Blood Pressure 69 in 134 lbs 113/74 mm[Hg] 12/11/2018 Blood Pressure 120/75 mm[Hg] 12/04/2018 Height Weight Blood Pressure 69 in 132 lbs 4.96 oz 135/95 mm[Hg] 11/27/2018 Height Weight Blood Pressure 69 in 128 lbs 8 oz 120/75 mm[Hg]
--- OUTSIDE RECORDS SUMMARY | 2020-06-19 14:43 | CCD | Continuity of Care Document ---
Author Author Yfn CRAIN MD Organization Unknown Address [address] [address] Phone [phone] Care Team Providers Care Occupational Health And Safety Officer Name Role Phone Daniel Henderson M.D. AUTM [phone] Rosalino Maciel M.D. AUTM [phone] Problems Description No Information Available Social History Type Date Description Comments Sex Unknown ETOH Use Denies alcohol use Tobacco Use Start: Unknown End: Unknown Patient is a former smoker Recreational Drug Use History Of OPIATE ABU SE Allergies, Adverse Reactions, Alerts Description No Known Drug Allergies Medications Active Medications SIG Qnty Indications Ordering Provide r Date Suboxone 4-1mg Film 1 daily Unknown Ibuprofen 800mg Tablets 1 by mouth every 8 hours as needed Unknown Eliquis 5mg Tablets 1 tab by mouth daily Unknown Immunizations Description No Information Available Vital Signs Date Vital Result Comment 04/14/2020 10:24am BP Systolic 106 mmHg BP Diastolic 69 mmHg Height 69 inches 5'9" Weight 137.38 lb BMI (Body Mass Index) 20.3 kg/m2 [place] Body Weight 160 lb Weight 62.313 kg BSA (Body Surface Area) 1.76 m2 02/16/2020 8:52am BP Systolic 126 mmHg BP Diastolic 81 mmHg Height 69 inches 5'9" Weight 130.38 lb BMI (Body Mass Index) 19.3 kg/m2 [place] Body Weight 160 lb Weight 59.138 kg BSA (Body Surface Area) 1.72 m2 Results Test Acquired Date Facility Test Result H/L Range Note Laboratory test finding 03/25/2020 [facility] Main Lab [address] [place] [address] [phone] Pathology Request For Service (SEE NOTE) 1 1 FINAL DIAGNOSIS Colon, polyp, polypectomy: Tubular adenoma. 03/26/2020 - 1220 CLINICAL DIAGNOSIS Colon cancer 03/25/2020 - 1523 GROSS DIAGNOSIS Received in formalin labeled "snare colon polyp" is one fragment of hennessy tissue, 0.3 x 0.3 x 0.2 cm. All in one. -SV 03/25/2020 - 1523 Signed ALYSIA QUINTANILLA MD 03/26/2020 1221 Procedures Date Code Description Status 03/25/2020 03590 Colonoscopy Thru [facility] [place] Remove Tumor/Polyp/Lesion Snare Technique Completed Medical Devices Description No Information Available Encounters Type Date Location Provider Dx Diagnosis Office Visit 02/16/2020 8:40a [facility] Laron abreu JR, MD C18.7 Malignant neoplasm of sigmoid colon Office Visit 11/26/2019 8:50a [facility] Laron abreu JR, MD C18.7 Malignant neoplasm of sigmoid colon Assessments Date Code Description Provider 03/25/2020 Z12.11 Encounter for screening for nidia gnant neoplasm of colon Laron Crain JR, MD 03/25/2020 Z85.038 Personal history of other malignant neoplasm of large intestine Laron Crain JR, MD 03/25/2020 D12.8 Benign neoplasm of rectum Laron Crain JR, MD 02/16/2020 C18.7 Malignant neoplasm of sigmoid co [place] Laron Crain JR, MD 11/26/2019 C18.7 Malignant neoplasm of sigmoid co mathew Laron Crain JR, MD Plan of Treatment 02/16/2020 - Laron Crain JR, MD* C18.7 Malignant neoplasm of sigmoid colon* Comments:* Patient has had a history of colon cancer has undergone chemotherapy for colon cancer but at this point my recommendation is to proceed with a colonoscopy to rule out any other abnormalities at that time we should be able to also determine the length of the rectal stump we should be able to determine what the colon looks proximal to the colostomy on the left- hand side of his abdomen but otherwise no other significant abnormalities during expectancy at this time. Then we can have him return to the office and planned for a reversal of this everything does really depend on the length of the colon per se that's left over and from my standpoint also makes a difference whether we would recommend a laparoscopic reversal versus a open if its an open technique I anticipate this will be much more amenable to reversal. Functional Status Description No Information Available Mental Status Description No Information Available Referrals Description No Information Available
--- OUTSIDE RECORDS SUMMARY | 2020-06-19 14:43 | CCD ---
Author Organization Unknown Address [address] [place] [address] Phone [phone] Care Team Providers Care Gang Tailer Name Role Phone Daniel Henderson Unavailable Unavailable Allergies Code Code System Name Reaction Severity Status Onset NKDA Medications Name Status Start Date Stop Date buprenorphine 8 mg-naloxone 2 mg subling ual film PLACE 1 STRIP UNDER THE TONGUE ONCE DAILY Active Not available dronabinol 5 mg capsule Completed 03/01/20 Eliquis Active Not available Problems Name Status Onset Date Source Opioid Abuse Active 11/27/2018 History Malignant Tumor of Ascending Colon Active 07/17/2019 History Colostomy Present Active 07/17/2019 History Procedure by Method Active 10/21/2019 History Procedures Date Name Performed by Colonoscopy Information not avai lable Notes: colon resecton , colectomy, stoma x 2 Results Lab Results None recorded. Past Encounters 03/29/2020 Opioid Abuse Daniel Henderson MD: [address] [place] [address], Ph. 03/01/2020 Opioid Abuse Daniel Henderson MD: [address] [place] [address], Ph. Social History Tobacco Smoking Status Heavy Tobacco Smoker (1 PPD) Vaccine List None recorded. Plan of Care Reminders Provider Appointments None recorded. Lab None recorded. Referral None recorded. Procedures None recorded. Surgeries None recorded. Imaging None recorded. Vitals 03/29/2020 11:20AM MAT Height Weight BMI 69 [...]
--- OUTSIDE RECORDS SUMMARY | 2020-06-19 14:43 | CCD ---
Author Organization Unknown Address [address] [place] [address] Phone [phone] Care Team Providers Care Outpatient Coding Specialist Name Role Phone Beatriz Daniel Unavailable Unavailable Allergies Code Code System Name Reaction Severity Status Onset NKDA Medications Name Status Start Date Stop Date buprenorphine 8 mg-naloxone 2 mg subling ual film Place 1 film by sublingual route. Active Not a vailable dronabinol 5 mg capsule Completed 03/01/20 20 Eliquis Active Not available Problems Name Status Onset Date Source Opioid Abuse Active 11/27/2018 History Malignant Tumor of Ascending Colon Active 07/17/2019 History Colostomy Present Active 07/17/2019 History Procedure by Method Active 10/21/2019 History Procedures Date Name Performed by Partial Resection of Colon Information n ot available Colonoscopy Information not avai lable Notes: colectomy, stoma x 2 Results Lab Results Date Name Specimen Result Interpretation Description Value Range Status Address 04/28/2020 Drug Screen, Blood Normal [place] Screen, Blood negative NG/mL cutoff:50 NG/mL [facility] nter: [address] [facility] Normal Barbiturates Screen, Blood neg ative ug/mL cutoff:0.1 ug/mL [facility]: [address] [facility] Normal Benzodiazepines Screen, Blood negative NG/mL cutoff:20 NG/mL [facility]: [address] [facility] ABNORMAL Cannabinoid Screen, Blood ++p ositive++ NG/mL cutoff:5 NG/mL [facility]: [address] [facility] Normal Cocaine + Metab. Screen, Blood negative NG/mL cutoff:25 NG/mL [facility]: [address] [facility] Normal Opiates Screen, Blood negative NG/mL cutoff:5 NG/mL [facility]: [address] [facility] Normal Oxycodone Screen negative NG/mL cuto ff:5 NG/mL [facility]: [address] [facility] Normal Phencyclidine Screen, Blood ne gative NG/mL cutoff:8 NG/mL [facility]: [address] [facility] Normal Cannabinoid Confirmation positive . [facility]: [address] [facility] Normal tetrahydrocannabinol(THC) 19.8 NG/mL . NG/mL [facility]: [address] [facility] Normal Carboxy-thc 42.2 NG/mL . NG/mL [facility]: [address] [facility] Normal Hydroxy-thc 4.7 NG/mL . NG/mL [facility]: [address] [facility] Normal Cannabinol negative NG/mL . NG/mL [facility]: [address] [facility] Normal Cannabidiol negative NG/mL . NG/mL [facility] in[facility]: [address] [facility] Past Encounters 05/25/2020 Opioid Abuse Daniel Henderson MD: [address] [place] [phone], Ph. 04/27/2020 Opioid Abuse Daniel Henderson MD: [address] [place] [phone], Ph. 03/29/2020 Opioid Abuse Daniel Henderson MD: [address] [place] [phone], Ph. 03/01/2020 Opioid Abuse Daniel Henderson MD: [address] [place] [phone], Ph. Social History Tobacco Smoking Status Heavy Tobacco Smoker (1 PPD) Vaccine List Notes: Pt would like a flu shot Plan of Care Reminders Provider Appointments None recorded. Lab None recorded. Referral None recorded. Procedures None recorded. Surgeries None recorded. Imaging None recorded. Vitals 05/25/2020 10:20AM MAT Height Weight BMI Blood Pressure 69 in 136 lbs 6.4 oz 20.1 kg/m2 109/73 mm[Hg ] 04/27/2020 10:20AM MAT Height Weight BMI Blood [...]
--- OUTSIDE RECORDS SUMMARY | 2020-06-19 14:43 | CCD | Continuity of Care Document ---
Author Author Yfn YA MD Organization Unknown Address [address] [place] [phone] Phone [phone] Care Team Providers Care Motion Graphics Artist Name Role Phone Daniel Henderson MD AUTM Unavailable Laron Crain MD AUTM [phone] Problems Description No Information Available Social History [...] Medical Devices Description No Information Available Encounters Description No Information Available Assessments Description No Information Available Plan of Treatment No Information Available Functional Status Description No Information Available Mental Status Description No Information Available Referrals Description No Information Available
--- OUTSIDE RECORDS SUMMARY | 2020-06-19 14:43 | CCD | Continuity of Care Document ---
Author Author Yfn CRAIN MD Organization Unknown Address [address] [address] Phone [phone] Care Team Providers Care Carton Forming Machine Helper Name Role Phone Daniel Henderson M.D. AUTM [phone] Rosalino Maciel M.D. AUTM [phone] Problems Description No Information Available Social History [...] Available Vital Signs Date Vital Result Comment 02/16/2020 8:52am BP Systolic 126 mmHg BP Diastolic 81 mmHg Height 69 inches 5'9" Weight 130.38 lb BMI (Body Mass Index) 19.3 kg/m2 [place] Body Weight 160 lb Weight 59.138 kg BSA (Body Surface Area) 1.72 m2 11/26/2019 8:53am BP Systolic 118 mmHg BP Diastolic 80 mmHg Height 69 inches 5'9" Weight 131.12 lb BMI (Body Mass Index) 19.4 kg/m2 [place] Body Weight 160 lb Weight 59.478 kg BSA (Body Surface Area) 1.73 m2 Results Test Acquired Date Facility Test Result H/L Range Note Laboratory test finding 03/25/2020 [facility] Main Lab [address] [place] [address] [phone] Pathology Request For Service (SEE NOTE) 1 1 FINAL DIAGNOSIS Colon, polyp, polypectomy: Tubular adenoma. 03/26/2020 - 1220 CLINICAL DIAGNOSIS Colon cancer 03/25/2020 - 1523 GROSS DIAGNOSIS Received in formalin labeled "snare colon polyp" is one fragment of hennessy tissue, 0.3 x 0.3 x 0.2 cm. All in one. -SV 03/25/2020 - 1523 Signed ALYSIA QUINTANILLA MD 03/26/2020 1221 Procedures Description No Information Available Medical Devices Description No Information Available Encounters Type Date Location Provider Dx Diagnosis Office Visit 02/16/2020 8:40a [facility] Laron abreu JR, MD C18.7 Malignant neoplasm of sigmoid colon Office Visit 11/26/2019 8:50a [facility] Laron abreu JR, MD C18.7 Malignant neoplasm of sigmoid colon Assessments Date Code Description Provider 02/16/2020 C18.7 Malignant neoplasm of sigmoid co [...]
--- OUTSIDE RECORDS SUMMARY | 2020-06-19 14:44 | CCD ---
Author Author [facility] Organization [facility] Address Unknown Phone Unavailable Care Team Providers Care Armature Varnisher Name Role Phone Sissy Crain JR, MD Unavailable Unavailable Sissy Crain JR, MD Unavailable Unavailable Sissy Crain JR, MD Unavailable Unavailable Sissy Crain JR, MD Unavailable Unavailable Sissy Crain JR, MD Unavailable Unavailable Sissy Crain JR, MD Unavailable Unavailable Sissy Crain JR, MD Unavailable Unavailable Sissy Crain JR, MD Unavailable Unavailable Sissy Crain JR, MD Unavailable Unavailable Sissy Crain JR, MD Unavailable Unavailable Sissy Crain JR, MD Unavailable Unavailable Sissy Crain JR, MD Unavailable Unavailable Sissy Crain JR, MD Unavailable Unavailable Sissy Crain JR, MD Unavailable Unavailable Sissy Crain JR, MD Unavailable Unavailable Sissy Crain JR, MD Unavailable Unavailable Sissy Crain JR, MD Unavailable Unavailable Paras JR J Laron Unavailable Unavailable Paras JR J Laron Unavailable Unavailable Paras JR J Laron Unavailable Unavailable Paras JR J Laron Unavailable Unavailable Paras JR J Laron Unavailable Unavailable Paras JR J Laron Unavailable Unavailable Paras JR J Laron Unavailable Unavailable Paras JR J Laron Unavailable Unavailable Paras JR J Laron Unavailable Unavailable Paras JR, J Laron Unavailable Unavailable Paras JR J Laron Unavailable Unavailable Paras JR J Laron Unavailable Unavailable Paras JR J Laron Unavailable Unavailable Paras JR, J Laron Unavailable Unavailable Paras JR, J Laron Unavailable Unavailable Paras JR J Laron Unavailable Unavailable Paras JR, J Laron Unavailable Unavailable Paras JR J Laron Unavailable Unavailable Paras JR, J Laron Unavailable Unavailable Paras JR, J Laron Unavailable Unavailable Paras JR J Laron Unavailable Unavailable Paras JR, J Laron Unavailable Unavailable Paras JR, J Laron Unavailable Unavailable Paras JR J Laron Unavailable Unavailable Paras JR J Laron SAAVEDRA Unavailable Unavailable Paras JR J Laron Unavailable Unavailable Paras JR J Laron Unavailable Unavailable Paras JR J Laron Unavailable Unavailable Paras JR J Laron Unavailable Unavailable Paras JR J Laron Unavailable Unavailable Paras JR, J Laron Unavailable Unavailable Paras JR, J Laron Unavailable Unavailable Paras JR, J Laron Unavailable Unavailable Paras JR J Laron Unavailable Unavailable Paras JR J Laron SAAVEDRA Unavailable Unavailable Paras JR J Laron Unavailable Unavailable Paras JR J Laron Unavailable Unavailable Paras JR J Laron Unavailable Unavailable Paras JR J Laron Unavailable Unavailable Mathieu Henderson MD Unavailable Unavailable Mathieu Henderson MD Unavailable Unavailable Mathieu Henderson MD Unavailable Unavailable Mathieu Henderson MD Unavailable Unavailable Mathieu Henderson MD Unavailable Unavailable Mathieu Henderson MD Unavailable Unavailable Mathieu Henderson MD Unavailable Unavailable Mathieu Henderson MD Unavailable Unavailable Mathieu Henderson MD Unavailable Unavailable Mathieu Henderson MD Unavailable Unavailable Mathieu Henderson MD Unavailable Unavailable Mathieu Henderson MD Unavailable Unavailable Mathieu Henderson MD Unavailable Unavailable Mathieu Henderson MD Unavailable Unavailable Mathieu Henderson MD Unavailable Unavailable Mathieu Henderson MD Unavailable Unavailable Mathieu Henderson MD Unavailable Unavailable Mathieu Henderson MD Unavailable Unavailable Mathieu Henderson MD Unavailable Unavailable Mathieu Henderson MD Unavailable Unavailable Mathieu Henderson MD Unavailable Unavailable Mathieu Henderson MD Unavailable Unavailable Mathieu Henderson MD Unavailable Unavailable Mathieu Henderson MD Unavailable Unavailable Mathieu Henderson MD Unavailable Unavailable Mathieu Henderson MD Unavailable Unavailable Mathieu Henderson MD Unavailable Unavailable Mathieu Henderson MD Unavailable Unavailable Mathieu Henderson MD Unavailable Unavailable Mathieu Henderson MD Unavailable Unavailable Mathieu Henderson MD Unavailable Unavailable Mathieu Henderson MD Unavailable Unavailable Mathieu Henderson MD Unavailable Unavailable Mathieu Henderson MD Unavailable Unavailable Mathieu Henderson MD Unavailable Unavailable Mathieu Henderson MD Unavailable Unavailable Mathieu Henderson MD Unavailable Unavailable Mathieu Henderson MD Unavailable Unavailable Mathieu Henderson MD Unavailable Unavailable Mathieu Henderson MD Unavailable Unavailable Mathieu Henderson MD Unavailable Unavailable Mathieu Henderson MD Unavailable Unavailable Mathieu Henderson MD Unavailable Unavailable Mathieu Henderson MD Unavailable Unavailable Mathieu Henderson MD Unavailable Unavailable Mathieu Henderson MD Unavailable Unavailable Mathieu Henderson MD Unavailable Unavailable Mathieu Henderson MD Unavailable Unavailable Mathieu Henderson MD Unavailable Unavailable Mathieu Henderson MD Unavailable Unavailable Mathieu Henderson MD Unavailable Unavailable Mathieu Henderson MD Unavailable Unavailable Mathieu Henderson MD Unavailable Unavailable Mathieu Henderson MD Unavailable Unavailable Mathieu Henderson MD Unavailable Unavailable Mathieu Henderson MD Unavailable Unavailable Mathieu Henderson MD Unavailable Unavailable Mathieu Henderson MD Unavailable Unavailable Mathieu Henderson MD Unavailable Unavailable Mathieu Henderson MD Unavailable Unavailable Mathieu Henderson MD Unavailable Unavailable Mathieu Henderson MD Unavailable Unavailable Mathieu Henderson MD Unavailable Unavailable Mathieu Henderson MD Unavailable Unavailable Mathieu Henderson MD Unavailable Unavailable Mathieu Henderson MD Unavailable Unavailable Mathieu Henderson MD Unavailable Unavailable Mathieu Henderson MD Unavailable Unavailable Mathieu Henderson MD Unavailable Unavailable Mathieu Henderson MD Unavailable Unavailable Mathieu Henderson MD Unavailable Unavailable Mathieu Henderson MD Unavailable Unavailable Mathieu Henderson MD Unavailable Unavailable Mathieu Henderson MD Unavailable Unavailable Mathieu Henderson MD Unavailable Unavailable Mathieu Henderson MD Unavailable Unavailable Mathieu Henderson MD Unavailable Unavailable Mathieu Henderson MD Unavailable Unavailable Mathieu Henderson MD Unavailable Unavailable Mathieu Henderson MD Unavailable Unavailable Mathieu Henderson MD Unavailable Unavailable Mathieu Henderson MD Unavailable Unavailable Mathieu Henderson MD Unavailable Unavailable Mathieu Henderson MD Unavailable Unavailable Mathieu Henderson MD Unavailable Unavailable Mathieu Hendesron MD Unavailable Unavailable Mathieu Henderson MD Unavailable Unavailable Mathieu Henderson MD Unavailable Unavailable Mathieu Henderson MD Unavailable Unavailable Saundra Oneill MD Unavailable Unavailable Saundra Oneill MD Unavailable Unavailable Saundra Oneill MD Unavailable Unavailable Saundra Oneill MD Unavailable Unavailable Saundra Oneill MD Unavailable Unavailable Saundra Oneill MD Unavailable Unavailable Saundra Oneill MD Unavailable Unavailable Saundra Oneill MD Unavailable Unavailable Saundra Oneill MD Unavailable Unavailable Saundra Oneill MD Unavailable Unavailable Saundra Oneill MD Unavailable Unavailable Saundra Oneill MD Unavailable Unavailable Saundra Oneill MD Unavailable Unavailable Saundra Oneill MD Unavailable Unavailable Saundra Oneill MD Unavailable Unavailable Saundra Oneill MD Unavailable Unavailable Saundra Oneill MD Unavailable Unavailable Saundra Oneill MD Unavailable Unavailable Saundra Oneill MD Unavailable Unavailable Saundra Oneill MD Unavailable Unavailable Saundra Oneill MD Unavailable Unavailable Saundra Oneill MD Unavailable Unavailable Saundra Oneill MD Unavailable Unavailable Saundra Oneill MD Unavailable Unavailable Saundra Oneill MD Unavailable Unavailable Saundra Oneill MD Unavailable Unavailable Saundra Oneill MD Unavailable Unavailable Saundra Oneill MD Unavailable Unavailable Saundra Oneill MD Unavailable Unavailable Saundra Oneill MD Unavailable Unavailable Saundra Oneill MD Unavailable Unavailable Saundra Oneill MD Unavailable Unavailable Saundra Oneill MD Unavailable Unavailable Saundra Oneill MD Unavailable Unavailable Saundra Oneill MD Unavailable Unavailable Saundra Oneill MD Unavailable Unavailable Saundra Oneill MD Unavailable Unavailable Saundra Oneill MD Unavailable Unavailable Saundra Oneill MD Unavailable Unavailable Saundra Oneill MD Unavailable Unavailable Saundra Oneill MD Unavailable Unavailable Saundra Oneill MD Unavailable Unavailable Saundra Oneill MD Unavailable Unavailable Mathieu Henderson MD Unavailable Unavailable Mathieu Henderson MD Unavailable Unavailable Mathieu Henderson MD Unavailable Unavailable Mathieu Henderson MD Unavailable Unavailable Mathieu Henderson MD Unavailable Unavailable Mathieu Henderson MD Unavailable Unavailable Mathieu Henderson MD Unavailable Unavailable Mathieu Henderson MD Unavailable Unavailable Mathieu Henderson MD Unavailable Unavailable Mathieu Henderson MD Unavailable Unavailable Mathieu Henderson MD Unavailable Unavailable Mathieu Henderson MD Unavailable Unavailable Mathieu Henderson MD Unavailable Unavailable Mathieu Henderson MD Unavailable Unavailable Mathieu Henderson MD Unavailable Unavailable Mathieu Henderson MD Unavailable Unavailable Mathieu Henderson MD Unavailable Unavailable Mathieu Henderson MD Unavailable Unavailable Mathieu Henderson MD Unavailable Unavailable Mathieu Henderson MD Unavailable Unavailable Mathieu Henderson MD Unavailable Unavailable Mathieu Henderson MD Unavailable Unavailable Mathieu Henderson MD Unavailable Unavailable Mathieu Henderson MD Unavailable Unavailable Mathieu Henderson MD Unavailable Unavailable Mathieu Henderson MD Unavailable Unavailable Mathieu Henderson MD Unavailable Unavailable Mathieu Henderson MD Unavailable Unavailable Mathieu Henderson MD Unavailable Unavailable Mathieu Henderson MD Unavailable Unavailable Mathieu Henderson MD Unavailable Unavailable Mathieu Henderson MD Unavailable Unavailable Mathieu Henderson MD Unavailable Unavailable Mathieu Henderson MD Unavailable Unavailable Mathieu Henderson MD Unavailable Unavailable Mathieu Henderson MD Unavailable Unavailable Mathieu Henderson MD Unavailable Unavailable Mathieu Henderson MD Unavailable Unavailable Mathieu Henderson MD Unavailable Unavailable Mathieu Henderson MD Unavailable Unavailable Mathieu Henderson MD Unavailable Unavailable Mathieu Henderson MD Unavailable Unavailable Mathieu Henderson MD Unavailable Unavailable Mathieu Henderson MD Unavailable Unavailable Mathieu Henderson MD Unavailable Unavailable Mathieu Henderson MD Unavailable Unavailable Mathieu Henderson MD Unavailable Unavailable Mathieu Henderson MD Unavailable Unavailable Mathieu Henderson MD Unavailable Unavailable Mathieu Henderson MD Unavailable Unavailable Mathieu Henderson MD Unavailable Unavailable Mathieu Henderson MD Unavailable Unavailable Mathieu Henderson MD Unavailable Unavailable Mathieu Henderson MD Unavailable Unavailable Mathieu Henderson MD Unavailable Unavailable Mathieu Henderson MD Unavailable Unavailable Mathieu Henderson MD Unavailable Unavailable Mathieu Henderson MD Unavailable Unavailable Mathieu Henderson MD Unavailable Unavailable Mathieu Henderson MD Unavailable Unavailable Mathieu Henderson MD Unavailable Unavailable Mathieu Henderson MD Unavailable Unavailable Mathieu Henderson MD Unavailable Unavailable Mathieu Henderson MD Unavailable Unavailable Mathieu Henderson MD Unavailable Unavailable Mathieu Henderson MD Unavailable Unavailable Mathieu Henderson MD Unavailable Unavailable Mathieu Henderson MD Unavailable Unavailable Mathieu Henderson MD Unavailable Unavailable Mathieu Henderson MD Unavailable Unavailable Mathieu Henderson MD Unavailable Unavailable Mathieu Henderson MD Unavailable Unavailable Mathieu Henderson MD Unavailable Unavailable Mathieu Henderson MD Unavailable Unavailable Mathieu Henderson MD Unavailable Unavailable Mathieu Henderson MD Unavailable Unavailable Mathieu Henderson MD Unavailable Unavailable Mathieu Henderson MD Unavailable Unavailable Mathieu Henderson MD Unavailable Unavailable Mathieu Henderson MD Unavailable Unavailable Mathieu Henderson MD Unavailable Unavailable Mathieu Henderson MD Unavailable Unavailable Mathieu Henderson MD Unavailable Unavailable Mathieu Henderson MD Unavailable Unavailable Mathieu Henderson MD Unavailable Unavailable Mathieu Henderson MD Unavailable Unavailable Mathieu Henderson MD Unavailable Unavailable Mathieu Henderson MD Unavailable Unavailable Mathieu Henderson MD Unavailable Unavailable Mathieu Henderson MD Unavailable Unavailable Mathieu Henderson MD Unavailable Unavailable Mathieu Henderson MD Unavailable Unavailable Mathieu Henderson MD Unavailable Unavailable Mathieu Henderson MD Unavailable Unavailable Mathieu Henderson MD Unavailable Unavailable Mathieu Henderson MD Unavailable Unavailable Mathieu Henderson MD Unavailable Unavailable Mathieu Henderson MD Unavailable Unavailable Mathieu Henderson MD Unavailable Unavailable Mathieu Henderson MD Unavailable Unavailable Mathieu Henderson MD Unavailable Unavailable Mathieu Henderson MD Unavailable Unavailable Mathieu Henderson MD Unavailable Unavailable Mathieu Henderson MD Unavailable Unavailable Mathieu Henderson MD Unavailable Unavailable Mathieu Henderson MD Unavailable Unavailable Mathieu Henderson MD Unavailable Unavailable Mathieu Henderson MD Unavailable Unavailable Mathieu Henderson MD Unavailable Unavailable Mathieu Henderson MD Unavailable Unavailable Mathieu Henderson MD Unavailable Unavailable Mathieu Henderson MD Unavailable Unavailable Mathieu Henderson MD Unavailable Unavailable Mathieu Henderson MD Unavailable Unavailable Mathieu Henderson MD Unavailable Unavailable Mathieu Henderson MD Unavailable Unavailable Mathieu Henderson MD Unavailable Unavailable Mathieu Henderson MD Unavailable Unavailable Mathieu Henderson MD Unavailable Unavailable Mathieu Henderson MD Unavailable Unavailable Mathieu Henderson MD Unavailable Unavailable Mathieu Henderson MD Unavailable Unavailable Mathieu Henderson MD Unavailable Unavailable Mathieu Henderson MD Unavailable Unavailable Mathieu Henderson MD Unavailable Unavailable Mathieu Henderson MD Unavailable Unavailable Mathieu Henderson MD Unavailable Unavailable Mathieu Henderson MD Unavailable Unavailable Mathieu Henderson MD Unavailable Unavailable Mathieu Henderosn MD Unavailable Unavailable Mathieu Hednerson MD Unavailable Unavailable Mathieu Henderson MD Unavailable Unavailable Mathieu Henderson MD Unavailable Unavailable Mathieu Henderson MD Unavailable Unavailable Mathieu Henderson MD Unavailable Unavailable Mathieu Henderson MD Unavailable Unavailable Mathieu Henderson MD Unavailable Unavailable Mathieu Henderson MD Unavailable Unavailable Mathieu Henderson MD Unavailable Unavailable Mathieu Henderson MD Unavailable Unavailable Mathieu Henderson MD Unavailable Unavailable Mathieu Henderson MD Unavailable Unavailable Mathieu Henderson MD Unavailable Unavailable Mathieu Henderson MD Unavailable Unavailable Mathieu Henderson MD Unavailable Unavailable Mathieu Henderson MD Unavailable Unavailable Mathieu Henderson MD Unavailable Unavailable Mathieu Henderson MD Unavailable Unavailable Mathieu Henderson MD Unavailable Unavailable Mathieu Henderson MD Unavailable Unavailable Mathieu Henderson MD Unavailable Unavailable Mathieu Henderson MD Unavailable Unavailable Mathieu Henderson MD Unavailable Unavailable Mathieu Henderson MD Unavailable Unavailable Mathieu Henderson MD Unavailable Unavailable Mathieu Henderson MD Unavailable Unavailable Mathieu Henderson MD Unavailable Unavailable Mathieu Henderson MD Unavailable Unavailable Mathieu Henderson MD Unavailable Unavailable Mathieu Henderson MD Unavailable Unavailable Mathieu Henderson MD Unavailable Unavailable Mathieu Henderson MD Unavailable Unavailable Mathieu Henderson MD Unavailable Unavailable Mathieu Henderson MD Unavailable Unavailable Mathieu Henderson MD Unavailable Unavailable Mathieu Henderson MD Unavailable Unavailable Mathieu Henderson MD Unavailable Unavailable Mathieu Henderson MD Unavailable Unavailable Mathieu Henderson MD Unavailable Unavailable Mathieu Henderson MD Unavailable Unavailable Mathieu Henderson MD Unavailable Unavailable Mathieu Henderson MD Unavailable Unavailable Mathieu Henderson MD Unavailable Unavailable Mathieu Henderson MD Unavailable Unavailable Mathieu Henderson MD Unavailable Unavailable Mathieu Henderson MD Unavailable Unavailable Mathieu Henderson MD Unavailable Unavailable Mathieu Henderson MD Unavailable Unavailable Alejandra SIMS MD Unavailable Unavailable Alejandra SIMS MD Unavailable Unavailable Alejandra SIMS MD Unavailable Unavailable Alejandra SIMS MD Unavailable Unavailable Alejandra SIMS MD Unavailable Unavailable Alejandra SIMS MD Unavailable Unavailable Alejandra SIMS MD Unavailable Unavailable Alejandra SIMS MD Unavailable Unavailable Alejandra SIMS MD Unavailable Unavailable Alejandra SIMS MD Unavailable Unavailable Alejandra SIMS MD Unavailable Unavailable Alejandra SIMS MD Unavailable Unavailable Alejandra SIMS MD Unavailable Unavailable Alejandra SIMS MD Unavailable Unavailable Alejandra SIMS MD Unavailable Unavailable Alejandra SIMS MD Unavailable Unavailable Alejandra SIMS MD Unavailable Unavailable Alejandra SIMS MD Unavailable Unavailable Alejandra SIMS MD Unavailable Unavailable Alejandra SIMS MD Unavailable Unavailable Alejandra SIMS MD Unavailable Unavailable Alejandra SIMS MD Unavailable Unavailable Alejandra SIMS MD Unavailable Unavailable Alejandra SIMS MD Unavailable Unavailable Alejandra SIMS MD Unavailable Unavailable Alejandra SIMS MD Unavailable Unavailable Alejandra SIMS MD Unavailable Unavailable Alejandra SIMS MD Unavailable Unavailable Alejandra SIMS MD Unavailable Unavailable Alejandra SIMS MD Unavailable Unavailable Alejandra SIMS MD Unavailable Unavailable Alejandra SIMS MD Unavailable Unavailable Alejandra SIMS MD Unavailable Unavailable Alejandra SIMS MD Unavailable Unavailable Alejandra SIMS MD Unavailable Unavailable Alejandra SIMS MD Unavailable Unavailable Alejandra SIMS MD Unavailable Unavailable Alejandra SIMS MD Unavailable Unavailable Alejandra SIMS MD Unavailable Unavailable Alejandra SIMS MD Unavailable Unavailable Alejandra SIMS MD Unavailable Unavailable Alejandra SIMS MD Unavailable Unavailable Alejandra SIMS MD Unavailable Unavailable Alejandra SIMS MD Unavailable Unavailable Alejandra SIMS MD Unavailable Unavailable Alejandra SIMS MD Unavailable Unavailable Alejandra SIMS MD Unavailable Unavailable Alejandra SIMS MD Unavailable Unavailable Alejandra SIMS MD Unavailable Unavailable Alejandra SIMS MD Unavailable Unavailable Alejandra SIMS MD Unavailable Unavailable Alejadnra SIMS MD Unavailable Unavailable Alejandra SIMS MD Unavailable Unavailable Alejandra SIMS MD Unavailable Unavailable Alejandra SIMS MD Unavailable Unavailable Alejandra SIMS MD Unavailable Unavailable Alejandra SIMS MD Unavailable Unavailable Alejandra SIMS MD Unavailable Unavailable Alejandra SIMS MD Unavailable Unavailable Alejandra SIMS MD Unavailable Unavailable Alejandra SIMS MD Unavailable Unavailable Alejandra SIMS MD Unavailable Unavailable Alejandra SIMS MD Unavailable Unavailable Alejandra SIMS MD Unavailable Unavailable Alejandra SIMS MD Unavailable Unavailable Alejandra SIMS MD Unavailable Unavailable Alejandra SIMS MD Unavailable Unavailable Alejandra SIMS MD Unavailable Unavailable Alejandra SIMS MD Unavailable Unavailable Alejandra SIMS MD Unavailable Unavailable Alejandra SIMS MD Unavailable Unavailable Alejandra SIMS MD Unavailable Unavailable Alejandra SIMS MD Unavailable Unavailable Alejandra SIMS MD Unavailable Unavailable Alejandra SIMS MD Unavailable Unavailable Alejandra SIMS MD Unavailable Unavailable Alejandra SIMS MD Unavailable Unavailable Alejandra SIMS MD Unavailable Unavailable Alejandra SIMS MD Unavailable Unavailable Alejandra SIMS MD Unavailable Unavailable Alejandra SIMS MD Unavailable Unavailable Alejandra SIMS MD Unavailable Unavailable Alejandra SIMS MD Unavailable Unavailable Idalia Henderson MD Unavailable Unavailable Idalia Henderson MD Unavailable Unavailable Idalia Henderson MD Unavailable Unavailable Idalia Henderson MD Unavailable Unavailable Idalia Henderson MD Unavailable Unavailable Idalia Henderson MD Unavailable Unavailable Idalia Henderson MD Unavailable Unavailable Idalia Henderson MD Unavailable Unavailable Idalia Henderson MD Unavailable Unavailable Idalia Henderson MD Unavailable Unavailable Idalia Henderson MD Unavailable Unavailable Idalia Henderson MD Unavailable Unavailable Idalia Henderson MD Unavailable Unavailable Idalia Henderson MD Unavailable Unavailable Idalia Henderson MD Unavailable Unavailable HendersonIdalia cleaning MD Unavailable Unavailable HendersonIdalia cleaning MD Unavailable Unavailable HendersonIdalia cleaning MD Unavailable Unavailable HendersonIdalia cleaning MD Unavailable Unavailable HendersonIdalia cleaning MD Unavailable Unavailable HendersonIdalia cleaning MD Unavailable Unavailable HendersonIdalia cleaning MD Unavailable Unavailable HendersonIdalia cleaning MD Unavailable Unavailable HendersonIdalia cleaning MD Unavailable Unavailable HendersonIdalia cleaning MD Unavailable Unavailable HendersonIdalia cleaning MD Unavailable Unavailable HendersonIdalia cleaning MD Unavailable Unavailable HendersonIdalia cleaning MD Unavailable Unavailable HendersonIdalia cleaning MD Unavailable Unavailable HendersonIdalia cleaning MD Unavailable Unavailable HendersonIdalia cleaning MD Unavailable Unavailable HendersonIdalia cleaning MD Unavailable Unavailable HendersonIdalia cleaning MD Unavailable Unavailable HendersonIdalia cleaning MD Unavailable Unavailable HendersonIdlaia cleaning MD Unavailable Unavailable HendersonIdalia cleaning MD Unavailable Unavailable Idalia Henderson MD Unavailable Unavailable HendersonIdalia cleaning MD Unavailable Unavailable Idalia Henderson MD Unavailable Unavailable EhndersonIdalia cleaning MD Unavailable Unavailable Idalia Henderson MD Unavailable Unavailable Idalia Henderson MD Unavailable Unavailable Idalia Henderson MD Unavailable Unavailable Idalia Henderson MD Unavailable Unavailable Idalia Henderson MD Unavailable Unavailable Idalia Henderson MD Unavailable Unavailable Idalia Henderson MD Unavailable Unavailable Idalia Henderson MD Unavailable Unavailable Idalia Henderson MD Unavailable Unavailable Idalia Henderson MD Unavailable Unavailable Idalia Henderson MD Unavailable Unavailable Idalia Henderson MD Unavailable Unavailable Idalia Henderson MD Unavailable Unavailable Idalia Henderson MD Unavailable Unavailable Idalia Henderson MD Unavailable Unavailable Idalia Henderson MD Unavailable Unavailable Idalia Henderson MD Unavailable Unavailable Idalia Henderson MD Unavailable Unavailable Idalia Henderson MD Unavailable Unavailable Idalia Henderson MD Unavailable Unavailable Idalia Henderson MD Unavailable Unavailable Idalia Henderson MD Unavailable Unavailable Idalia Henderson MD Unavailable Unavailable Idalia Henderson MD Unavailable Unavailable Henderson, Friedman Sherry MD Unavailable Unavailable Henderson, Friedman Sherry MD Unavailable Unavailable Henderson, Friedman Sherry MD Unavailable Unavailable Henderson, Friedman Sherry MD Unavailable Unavailable Henderson, Friedman Sherry MD Unavailable Unavailable Henderson, Friedman Sherry MD Unavailable Unavailable Henderson, Friedman Sherry MD Unavailable Unavailable Henderson, Friedman Sherry MD Unavailable Unavailable Henderson, Friedman Sherry MD Unavailable Unavailable Henderson, Friedman Sherry MD Unavailable Unavailable Henderson, Friedman Sherry MD Unavailable Unavailable Henderson, Friedman Sherry MD Unavailable Unavailable Henderson, Friedman Sherry MD Unavailable Unavailable BEM, GRIS MD Unavailable Unavailable BEM, GRIS MD Unavailable Unavailable BEM, GRIS MD Unavailable Unavailable BEM, GRIS MD Unavailable Unavailable BEM, GRIS MD Unavailable Unavailable BEM, GRIS MD Unavailable Unavailable BEM, GRIS MD Unavailable Unavailable BEM, GRIS MD Unavailable Unavailable BEM, GRIS MD Unavailable Unavailable BEM, GRIS MD Unavailable Unavailable BEM, GRIS MD Unavailable Unavailable BEM, GRIS MD Unavailable Unavailable BEM, GRIS MD Unavailable Unavailable BEM, GRIS MD Unavailable Unavailable BEM, GRIS MD Unavailable Unavailable BEM, GRIS MD Unavailable Unavailable BEM, GRIS MD Unavailable Unavailable BEM, GRIS MD Unavailable Unavailable BEM, GRIS MD Unavailable Unavailable BEM, GRIS MD Unavailable Unavailable BEM, GRIS MD Unavailable Unavailable BEM, GRIS MD Unavailable Unavailable BEM, GRIS MD Unavailable Unavailable BEM, GRIS MD Unavailable Unavailable BEM, GRIS MD Unavailable Unavailable BEM, GRIS MD Unavailable Unavailable BEM, GRIS MD Unavailable Unavailable BEM, GRIS MD Unavailable Unavailable BEM, GRIS MD Unavailable Unavailable BEM, GRIS MD Unavailable Unavailable BEM, GRIS MD Unavailable Unavailable BEM, GRIS MD Unavailable Unavailable BEM, GRIS MD Unavailable Unavailable BEM, GRIS MD Unavailable Unavailable BEM, GRIS MD Unavailable Unavailable BEM, GRIS MD Unavailable Unavailable BEM, GRIS MD Unavailable Unavailable BEM, GRIS MD Unavailable Unavailable BEM, GRIS MD Unavailable Unavailable BEM, GRIS MD Unavailable Unavailable BEM, GRIS MD Unavailable Unavailable BEM, GRIS MD Unavailable Unavailable BEM, GRIS MD Unavailable Unavailable BEM, GRIS MD Unavailable Unavailable BEM, GRIS MD Unavailable Unavailable BEM, GRIS MD Unavailable Unavailable BEM, GRIS MD Unavailable Unavailable BEM, GRIS MD Unavailable Unavailable BEM, GRIS MD Unavailable Unavailable BEM, GRIS MD Unavailable Unavailable BEM, GRIS MD Unavailable Unavailable BEM, GRIS MD Unavailable Unavailable BEM, GRIS MD Unavailable Unavailable BEM, GRIS MD Unavailable Unavailable BEM, GRIS MD Unavailable Unavailable BEM, GRIS MD Unavailable Unavailable BEM, GRIS MD Unavailable Unavailable BEM, GRIS MD Unavailable Unavailable BEM, GRIS MD Unavailable Unavailable BEM, GRIS MD Unavailable Unavailable BEM, GRIS MD Unavailable Unavailable BEM, GRIS MD Unavailable Unavailable BEM, GRIS MD Unavailable Unavailable BEM, GRIS MD Unavailable Unavailable BEM, GRIS MD Unavailable Unavailable BEM, GRIS MD Unavailable Unavailable Idalia Henderson MD Unavailable Unavailable Idalia Henderson MD Unavailable Unavailable Idalia Henderson MD Unavailable Unavailable Idalia Henderson MD Unavailable Unavailable Idalia Henderson MD Unavailable Unavailable Idalia Henderson MD Unavailable Unavailable Idalia Henderson MD Unavailable Unavailable Idalia Henderson MD Unavailable Unavailable Idalia Henderson MD Unavailable Unavailable Idalia Henderson MD Unavailable Unavailable Idalia Henderson MD Unavailable Unavailable Idalia Henderson MD Unavailable Unavailable Idalia Henderson MD Unavailable Unavailable Idalia Henderson MD Unavailable Unavailable Idalia Henderson MD Unavailable Unavailable Idalia Henderson MD Unavailable Unavailable Idalia Henderson MD Unavailable Unavailable Idalia Henderson MD Unavailable Unavailable Idalia Henderson MD Unavailable Unavailable Idalia Henderson MD Unavailable Unavailable Idalia Henderson MD Unavailable Unavailable Idalia Henderson MD Unavailable Unavailable Idalia Henderson MD Unavailable Unavailable Idalia Henderson MD Unavailable Unavailable Idalia Henderson MD Unavailable Unavailable Idalia Henderson MD Unavailable Unavailable Idalia Henderson MD Unavailable Unavailable Idalia Henderson MD Unavailable Unavailable Idalia Henderson MD Unavailable Unavailable Idalia Henderson MD Unavailable Unavailable Idalia Henderson MD Unavailable Unavailable Idalia Henderson MD Unavailable Unavailable Idalia Henderson MD Unavailable Unavailable Idalia Henderson MD Unavailable Unavailable Idalia Henderson MD Unavailable Unavailable HendersonIdalia cleaning MD Unavailable Unavailable HendersonIdalia MD Unavailable Unavailable HendersonIdalia MD Unavailable Unavailable HendersonIdalia MD Unavailable Unavailable HendersonIdalia cleaning MD Unavailable Unavailable HendersonIdalia cleaning MD Unavailable Unavailable HendersonIdalia MD Unavailable Unavailable HendersonIdalia MD Unavailable Unavailable HendersonIdalia MD Unavailable Unavailable HendersonIdalia MD Unavailable Unavailable HendersonIdalia MD Unavailable Unavailable HendersonIdalia MD Unavailable Unavailable HendersonIdalia MD Unavailable Unavailable HendersonIdalia MD Unavailable Unavailable HendersonIdalia MD Unavailable Unavailable HendersonIdalia cleaning MD Unavailable Unavailable HendersonIdalia cleaning MD Unavailable Unavailable HendersonIdalia cleaning MD Unavailable Unavailable HendersonIdalia cleaning MD Unavailable Unavailable HendersonIdalia cleaning MD Unavailable Unavailable HendersonIdalia cleaning MD Unavailable Unavailable HendersonIdalia cleaning MD Unavailable Unavailable HendersonIdalia cleaning MD Unavailable Unavailable HendersonIdalia cleaning MD Unavailable Unavailable HendersonIdalia cleaning MD Unavailable Unavailable HendersonIdalia cleaning MD Unavailable Unavailable HendersonIdalia cleaning MD Unavailable Unavailable HendersonIdalia cleaning MD Unavailable Unavailable HendersonIdalia cleaning MD Unavailable Unavailable HendersonIdalia cleaning MD Unavailable Unavailable HendersonIdalia cleaning MD Unavailable Unavailable HendersonIdalia cleaning MD Unavailable Unavailable HendersonIdalia cleaning MD Unavailable Unavailable HendersonIdalia cleaning MD Unavailable Unavailable HendersonIdalia cleaning MD Unavailable Unavailable HendersonIdalia cleaning MD Unavailable Unavailable HendersonIdalia cleaning MD Unavailable Unavailable HendersonIdalia cleaning MD Unavailable Unavailable HendersonIdalia cleaning MD Unavailable Unavailable HendersonIdalia cleaning MD Unavailable Unavailable HendersonIdalia cleaning MD Unavailable Unavailable HendersonIdalia cleaning MD Unavailable Unavailable SYSTEM IN, NOT IN PROVIDER Unavailable Unavailable Dione MÁRQUEZ MD Unavailable Unavailable Dione MÁRQUEZ MD Unavailable Unavailable Dione MÁRQUEZ MD Unavailable Unavailable Dione MÁRQUEZ MD Unavailable Unavailable Dione MÁRQUEZ MD Unavailable Unavailable Dione MÁRQUEZ MD Unavailable Unavailable Dione MÁRQUEZ MD Unavailable Unavailable Dione MÁRQUEZ MD Unavailable Unavailable Dione MÁRQEUZ MD Unavailable Unavailable Dione MÁRQUEZ MD Unavailable Unavailable Dione MÁRQUEZ MD Unavailable Unavailable Dione MÁRQUEZ MD Unavailable Unavailable Dione MÁRQUEZ MD Unavailable Unavailable Dione MÁRQUEZ MD Unavailable Unavailable Re-disclosure Warning The records that you are about to access may contain information from federally-assisted alcohol or drug abuse programs. If such information is present, then the following federally mandated warning applies: This information has been disclosed to you from records protected by federal confidentiality rules (42 CFR part 2). The federal rules prohibit you from making any further disclosure of this information unless further disclosure is expressly permitted by the written consent of the person to whom it pertains or as otherwise permitted by 42 CFR part 2. A general authorization for the release of medical or other information is NOT sufficient for this purpose. The Federal rules restrict any use of the information to criminally investigate or prosecute any alcohol or drug abuse patient.The records that you are about to access may contain highly sensitive health information, the redisclosure of which is protected by Article 27-F of the [facility] Public Health law. If you continue you may have access to information: Regarding HIV / AIDS; Provided by facilities licensed or operated by the [facility] Office of Mental Health; or Provided by the [facility] Office for People With Developmental Disabilities. If such information is present, then the following [facility] mandated warning applies: This information has been disclosed to you from confidential records which are protected by state law. State law prohibits you from making any further disclosure of this information without the specific written consent of the person to whom it pertains, or as otherwise permitted by law. Any unauthorized further disclosure in violation of state law may result in a fine or mcfp sentence or both. A general authorization for the release of medical or other information is NOT sufficient authorization for further disc losure. Allergies and Adverse Reactions Type Description Substance Reaction Status Data Source(s ) Drug Class NO KNOWN ALLERGIES NO KNOWN ALLERGIES [facility] Encounters Encounter Providers Location Date Indications Data Source(s ) Inpatient Attender: Sherry Henderson MD 06/11/2020 07:52:11 AM EST Lab [facility] Inpatient Attender: Sherry Henderson MDAdmitter: Sherry butt MD 06/11/2020 05:13:00 AM EST - 06/16/2020 12:02:00 PM EST ILEOSTOMY STATUS, COLOSTOMY STATUS & HX COLON CARCINOMA Z85. [facility] ILEOSTOMY STATUS, COLOSTOMY STATUS & HX COLON CARCINOMA Z85. Patient discharged. ( in Healthcare facility) Attender: Sherry Henderson MDAdmitter: Sherry Henderson MDConsultant: Daniel Henderson MD 06/11/2020 05:13:00 AM ES T [facility] Outpatient Attender: Sherry Henderson MD 06/07/2020 02:21:03 PM EST Lab [place] [facility] Outpatient Attender: Sherry Henderson MD 06/07/2020 01 :49:00 PM EST URGENT OPEN TAKEDOWN OF ILEOSTOMY, TAKEDOWN COLOSTOMY AND LO [facility] URGENT OPEN TAKEDOWN OF ILEOSTOMY, TAKED OWN COLOSTOMY AND LO Outpatient Attender: Sherry Henderson MD [place] 05/31/2020 01:45:00 PM EST [facility] ([facility]) Daniel Henderson MD: [address] [place] [address], Ph. Attender: Daniel Henderson MD [facility] Medical 05/25/2020 12:00:00 AM EST [facility] ([facility]) Daniel Henderson MD: [address] [place] [address], Ph. Attender: Daniel Henderson MD [facility] Medical 04/27/2020 12:00:00 AM EST [facility] ([facility]) Daniel Henderson MD: [address] [place] [address], Ph. Attender: Daniel Henderson MD [facility] Medical 04/27/2020 12:00:00 AM EST [facility] ([facility]) Daniel Henderson MD: [address] [place] [address], Ph. Attender: Daniel Henderson MD [facility] Medical 03/29/2020 12:00:00 AM EST [facility] ([facility]) Daniel Henderson MD: [address] [place] [address], Ph. Attender: Daniel Henderson MD [facility] Medical 03/29/2020 12:00:00 AM EST [facility] ([facility]) Daniel Henderson MD: [address] [place] [address], Ph. Attender: Daniel Henderson MD [facility] 03/29/2020 12:00:00 AM EST [facility] ([facility]) Daniel Henderson MD: [address] [place] [address], Ph. Attender: Daniel Henderson MD [facility] Medical 03/01/2020 12:00:00 AM EDT [facility] ([facility]) Daniel Henderson MD: [address] [place] [address], Ph. Attender: Daniel Henderson MD [facility] Medical 03/01/2020 12:00:00 AM EDT [facility] ([facility]) Daniel Henderson MD: [address] [place] [address] 504, Ph. Attender: Daniel Henderson MD [facility] Medical 03/01/2020 12:00:00 AM EDT [facility] ([facility]) Daniel Henderson MD: [address] [place] [address], Ph. Attender: Daniel Henderson MD [facility] 03/01/2020 12:00:00 AM EDT [facility] ([facility]) Outpatient Attender: Daniel Henderson MD FP 02/24/2020 01:27:00 PM EDT [facility] Outpatient Attender: Laron Colindres/Cam/Herbert/Horacio dl 02/16/2020 08:40:00 AM EDT [facility] ([facility] Outpatient Attender: Daniel Henderson MD FP 02/03/2020 10:32:01 AM EDT [facility] Outpatient Attender: Daniel Henderson MD FP 02/02/2020 10:53:02 AM EDT [facility] Outpatient Attender: Daniel Henderson MD FP 01/10/2020 11:45:01 AM EDT [facility] Outpatient Attender: Daniel Henderson MD FP 01/05/2020 10:04:01 AM EDT [facility] Outpatient Attender: Daniel Henderson MD FP 12/31/2019 09:52:02 AM EDT [facility] Outpatient Attender: Daniel Henderson MD FP 12/31/2019 09:23:00 AM EDT [facility] Outpatient Attender: Daniel Henderson MD FP 12/17/2019 12:02:28 AM EDT [facility] Outpatient Attender: Daniel Henderson MD FP 12/16/2019 09:35:00 AM EDT [facility] Outpatient Attender: Laron Colindres/Cam/Herbert/Horacio dl 11/26/2019 08:50:00 AM EDT [facility] ([facility] ) Outpatient Attender: Daniel Henderson MD FP 11/24/2019 11:27:01 AM EDT [facility] Outpatient Attender: Daniel Henderson MD FP 11/24/2019 10:19:01 AM EDT [facility] Outpatient Attender: Daniel Henderson MD FP 11/22/2019 12:02:25 AM EDT [facility] Outpatient Attender: Daniel Henderson MD FP 11/21/2019 02:23:01 PM EDT [facility] Outpatient Attender: Daniel Henderson MD FP 11/19/2019 01:48:01 PM EDT [facility] Outpatient Attender: Daniel Henderson MD FP 11/19/2019 11:49:01 AM EDT [facility] Outpatient Attender: Daniel Henderson MD FP 11/17/2019 01:34:00 PM EDT [facility] Outpatient Attender: Daniel Henderson MD FP 11/10/2019 11:59:00 AM EDT [facility] Outpatient Attender: Daniel Henderson MD FP 11/05/2019 11:10:01 AM EDT [facility] Outpatient Attender: Daniel Henderson MD FP 10/28/2019 03:30:03 PM EDT [facility] Outpatient Attender: Daniel Henderson MD FP 10/24/2019 12:02:28 AM EDT [facility] Outpatient Attender: Daniel Henderson MD FP 10/23/2019 05:00:01 PM EDT [facility] Outpatient Attender: Daniel Henderson MD FP 10/23/2019 11:49:01 AM EDT [facility] Outpatient Attender: Daniel Henderson MD FP 10/22/2019 12:02:22 AM EDT [facility] Outpatient Attender: Daniel Henderson MD FP 10/21/2019 02:40:01 PM EDT [facility] Outpatient Attender: Daniel Henderson MD FP 10/21/2019 02:39:02 PM EDT [facility] Outpatient Attender: Daniel Henderson MD FP 10/21/2019 01:40:00 PM EDT [facility] Outpatient Attender: Daniel Henderson MD FP 10/21/2019 10:12:00 AM EDT [facility] Outpatient Attender: Saundra Oneill MD FP 10/14/2019 07:58:37 PM E DT [facility] Outpatient Attender: Saundra Oneill MD FP 09/23/2019 02:52:01 PM E DT [facility] Outpatient Attender: Saundra Oneill MD FP 09/23/2019 02:51:00 PM E DT [facility] Outpatient Attender: Saundra Oneill MD FP 09/22/2019 09:43:00 AM E DT [facility] Outpatient 09/16/2019 06:22:00 AM EDT [facility] Outpatient Attender: GIO SIMS MD FP 09/08/2019 10:20:00 A M EDT [facility] Outpatient Attender: GIO SIMS MD FP 09/04/2019 02:27:01 P M EDT [facility] Outpatient Attender: GIO SIMS MD FP 08/27/2019 10:25:01 A M EDT [facility] Outpatient 08/15/2019 06:14:00 AM EDT [facility] Outpatient Attender: GIO SIMS MD FP 07/30/2019 01:25:00 P M EDT [facility] Outpatient Attender: GIO SIMS MD FP 07/25/2019 03:37:00 P M EDT [facility] Outpatient Attender: GIO SIMS MD FP 07/17/2019 03:10:04 P M EDT [facility] Outpatient Attender: GIO SIMS MD FP 07/17/2019 03:10:04 P M EDT [facility] Outpatient Attender: GIO SIMS MD FP 07/17/2019 03:09:03 P M [facility] Outpatient Attender: GIO SIMS MD FP 07/11/2019 09:42:00 A [facility] Outpatient 07/03/2019 12:31:00 PM [facility] Outpatient Attender: GIO SIMS MD 07/03/2019 10:19:02 A [facility] Outpatient 07/01/2019 09:47:00 AM EST [facility] [address] [address] 06/30/2019 12:00:00 AM EST eCW1 ([facility]) Outpatient 06/26/2019 02:25:00 PM EST [facility] Outpatient 06/25/2019 01:31:00 PM [facility] Outpatient Attender: GIO SIMS MD FP 06/20/2019 10:38:00 A [facility] Outpatient Attender: IGO SIMS MD FP 06/18/2019 10:04:05 A [facility] Outpatient Attender: GIO SIMS MD 06/18/2019 08:44:00 A [facility] Outpatient 06/17/2019 02:34:00 PM [facility] Outpatient Attender: GIO SIMS MD FP 06/16/2019 04:08:00 P [facility] Outpatient Attender: GIO SIMS MD 06/16/2019 09:21:00 A [facility] Outpatient 06/02/2019 12:47:00 PM [facility] Outpatient Attender: GIO SIMS MD FP 06/02/2019 11:00:04 A [facility] Outpatient Attender: GRIS HOBBS MDReferrer: GRIS HOBBS MD 06/01/2019 12:00:00 AM [facility] Inpatient Attender: GRIS Guzman r: CHARLINE MÁRQUEZ MDAdmitter: GRIS HOBBS MDReferrer: PROVIDER SYSTEM IN 05/31/2019 12:00:00 AM [facility] - 06/02/2019 12:00:[address] [facility] Peritoneal abscess Patient discharged. Outpatient Attender: GIO SIMS MD 05/27/2019 01:59:00 P [facility] Outpatient Attender: GIO SIMS MD 05/27/2019 01:56:00 P [facility] Outpatient Attender: GIO SIMS MD 05/27/2019 01:55:02 P [facility] Outpatient Attender: GIO SIMS MD 05/27/2019 01:55:01 P [facility] Outpatient Attender: GIO SIMS MD 05/27/2019 10:13:00 A [facility] Outpatient Attender: GIO SIMS MD 05/12/2019 01:13:02 P [facility] Outpatient Attender: GIO SIMS MD 05/12/2019 11:47:01 A [facility] Outpatient Attender: GIO SIMS MD 05/09/2019 12:01:00 P [facility] Outpatient Attender: GIO SIMS MD 05/09/2019 11:52:01 A [facility] Outpatient Attender: GIO SIMS MD 05/09/2019 09:38:01 A [facility] Outpatient Attender: GIO SIMS MD 05/09/2019 09:20:01 A [facility] Outpatient Attender: GIO SIMS MD 05/08/2019 01:16:01 P [facility] Outpatient Attender: GIO SIMS MD 05/02/2019 09:46:00 A [facility] Outpatient Attender: GIO SIMS MD 05/02/2019 09:45:02 A [facility] Outpatient Attender: GIO SIMS MD 04/28/2019 02:53:02 P [facility] Medications Medication Brand Name Start Date Product Form Dose Route Admi nistrative Instructions Pharmacy Instructions Status Indications Reaction Description Data Source(s) 24 HR Nicotine 0.583 MG/HR Transdermal P atch nicotine (NICODERM CQ) 14 MG/24HR 1 patch nicotine (NICODERM CQ) 14 MG/24HR 1 patch 06/02/2019 09:00:00 AM EST 1 {patch} Transdermal active 1 patch, Transdermal, Administer over 24 Hours, Daily Standard, First dose on Sun06/02/19 at 0900, For 30 days [facility] Medication administered onsite sodium chloride (preservative free) 0.9 % flush 3 mL 06/02/2019 01:00:00 AM EST 3 mL Intravenous active [Ord er 1 Start] Name: Peripheral IV Signed Summary: Routine, CONTINUOUS, Starting [place] 06/01/19 at 2025, Until Sun07/01/19, For 30 days [Order 1 End] [Order 2 Start] Name: sodium chloride (preservative fr ee) 0.9 % flush 3 mL Signed Summary: 3 mL, Intravenous, Every 8 hours Standard (3 times per day), First dose on Sun06/02/19 at 0100, For 30 days
Saline Lock. Flush Q8H and after each use to Saline Lock.
[Order 2 End] [Order 3 Start] Name: sodium chloride (preservative free) 0.9 % flush 3 mL Signed Summary: 3 mL, Intravenous, PRN, Line Care, Starting [place] 06/01/19 at 2024, For 30 days
Saline Lock. Flush Q8H and after each use to Saline Lock.
[Order 3 End] [Order 4 Start] Name: Saline Lock order Signed Summary: Routine, ONCE, [place] 06/01/19 at 2025, For 1 occurrence [Order 4 End] [Order 5 Start] Name: NaCl infusion 0.9 % Signed Summary: at 0.2-10 mL/hr, Intravenous, PRN, For Meds, Starting [place] 06/01/19 at 2024, For 30 days [Order 5 End] [Order 6 Start] Name: dextrose 5 % infusion Signed Summary: at 0.2-10 mL/hr, Intravenous, PRN, For Meds, Starting [place] 06/01/19 at 2024, For 30 days [Order 6 End] [facility] Medication administered onsite gabapentin 100 MG Oral Capsule gabapentin (NEURONTIN) capsule 100 mg gabapentin (NEURONTIN) capsule 100 mg 06/01/2019 05:00:00 PM EST 100 mg Oral active 100 mg, Oral, Three Times D aily Standard, First dose on Sun06/01/19 at 1700, For 30 days [facility] Medication administered onsite Ibuprofen 200 MG Oral Tablet ibuprofen (ADVIL,MOTRIN) tablet 400 mg ibuprofen (ADVIL,MOTRIN) tablet 400 mg 06/01/2019 01:45:00 PM EST 400 mg Oral active 400 mg, Oral, Every 6 hours, First dose on 06/01/19 at 1345, For 30 days
Take with food.
[facility] Medication administered onsite lidocaine (XYLOCAINE) 2 % injection [id number] 06/01/2019 12:57:00 PM EST completed Code/Trauma Medicati on, Starting 06/01/19 at 1257 [facility] Medication administered onsite fentaNYL (SUBLIMAZE) (PF) injection [id number] 06/01/2019 12:55:00 PM EST completed Code/Trauma Medicati on, Starting 06/01/19 at 1255 [facility] Medication administered onsite Buprenorphine 8 MG / Naloxone 2 MG Subli ngual Tablet buprenorphine-naloxone (SUBOXONE) 8-2 MG per sublingual tablet 1 tablet buprenorphine-naloxone (SUBOXONE) 8-2 MG per sublingual tablet 1 tablet 06/01/2019 09:00:00 AM EST Sublingual active 1 tablet (8 mg of buprenorphine), Sublingual, Daily Standard, First dose on 06/01/19 at 0900, For 3 days [facility] Medication administered onsite ondansetron (ZOFRAN) injection 4 mg [id number] 06/01/2019 04:11:5 9 AM EST 4 mg Intravenous active 4 mg, In travenous, Every 8 hours PRN, Nausea, Vomiting, Starting 06/01/19 at 0411, For 30 days [facility] Medication administered onsite 1 ML Ketorolac Tromethamine 30 MG/ML Car tridge ketorolac (TORADOL) injection 15 mg ketorolac (TORADOL) injection 15 mg 06/01/2019 01:15:00 AM EST 15 mg Intravenous completed 15 mg, Intrav enous, Once, 06/01/19 at 0115, For 1 dose [facility] Medication administered onsite NaCl infusion 0.9 % [id number] 06/01/2019 12:30:00 AM EST Intravenous active at 100 mL/hr, Intrav enous, Continuous, Starting 06/01/19 at 0030, For 30 days [facility] Medication administered onsite Ceftriaxone 1000 MG Injection cefTRIAXone (ROCEPHIN) i nfusion 1 g (premix) cefTRIAXone (ROCEPHIN) infusion 1 g (premix) 06/01/2019 12:15:40 AM EST 1 g Intravenous active 1 g, Intraven ous, at 100 mL/hr, Every 24 hours, First dose on 06/01/19 at 0030, For 7 days
Discouraged Uses: Empiric treatment of post-surgical meningitis (ceftazidime preferred)
[facility] Medication administered onsite Metronidazole 5 MG/ML Injectable Solution metroNIDAZOL E (FLAGYL) IVPB 500 mg metroNIDAZOLE (FLAGYL) IVPB 500 mg 06/01/2019 12:15:40 AM EST 50 0 mg Intravenous active 500 mg, Intra venous, Administer over 60 Minutes, Every 8 hours, First dose on 06/01/19 at 0030, For 7 days [facility] Medication administered onsite iohexol (OMNIPAQUE) 300 MG/ML contrast injection 100 mL [id number] 05/31/2019 11:15:00 PM EST 100 mL Given by IV completed 100 mL, Given by IV, 1 TIME IMAGING, 05/31/19 at 2315, For 1 dose [facility] Medication administered onsite Acetaminophen 325 MG Oral Tablet acetaminophen (TYLENO L) tablet 650 mg acetaminophen (TYLENOL) tablet 650 mg 05/31/2019 08:30:00 PM EST 65 0 mg Oral active 650 mg, Oral, E very 6 hours, First dose on 05/31/19 at 2030, For 30 days
Maximum daily dose of acetaminophen is 3,000 mg from all sources in 24 hours.
[facility] Medication administered onsite 1 ML Ketorolac Tromethamine 30 MG/ML [facility] ketorolac (TORADOL) injection 15 mg ketorolac (TORADOL) injection 15 mg 05/31/2019 08:30:00 PM EST 15 mg Intravenous completed 15 mg, Intrav enous, Once, 05/31/19 at 2030, For 1 dose [facility] Medication administered onsite morphine sulfate (PF) injection 4 mg [id number] 05/31/2019 08:00: 00 PM EST 4 mg Intravenous completed 4 mg, In travenous, Once, 05/31/19 at 2000, For 1 dose [facility] Medication administered onsite Piperacillin 3000 MG / tazobactam 375 MG Injection piperacillin-tazobactam (ZOSYN) IVPB 3.375 g (premix) piperacillin-tazobactam (ZOSYN) IVPB 3.3 75 g (premix) 05/31/2019 07:00:00 PM EST 3.375 g Intravenous com pleted 3.375 g, Intravenous, Administer over 0.5 Hours, Once, 05/31/19 at 1900, For 1 dose [facility] Medication administered onsite Tetrahydrocannabinol 5 MG Oral Capsule dronabinol 5 mg capsule dronabinol 5 mg capsule completed dronabinol 5 M G Oral Capsule [place] ([facility]) Tetrahydrocannabinol 5 MG Oral Capsule dronabinol 5 mg capsule dronabinol 5 mg capsule completed dronabinol 5 M G Oral Capsule [place] ([facility]) Tetrahydrocannabinol 5 MG Oral Capsule dronabinol 5 mg capsule dronabinol 5 mg capsule completed dronabinol 5 M G Oral Capsule [place] ([facility]) Tetrahydrocannabinol 5 MG Oral Capsule dronabinol 5 mg capsule dronabinol 5 mg capsule completed dronabinol 5 M G Oral Capsule [place] ([facility]) Insurance Providers Payer name Policy type / Coverage type Policy ID Covered green party ID Covered green party's relationship to murillo Policy [place] Plan Information [facility] [id number] SP [id number] MEDICAID GME [id number] S [id number] [facility] [id number] S [id number] HEA [id number] SELF PAY ONLY [id number] SP [id number] SELF PAY ONLY [id number] SP [id number] [facility] [id number] SP [id number] [facility] [id number] SP [id number] Managed Care [facility] Community Plan P [id number] S [id number] Medicaid S [id number] S [id number] Managed Care - [facility] Community Plan P [id number] S [id number] [facility] I [id number] Self [id number] [facility] O [id number] S [id number] Managed Care [facility] Community Plan P [id number] S [id number] [facility] [id number] SP [id number] MEDICAID [id number] SP [id number] Managed Care [facility] Community Plan P [id number] S [id number] ANSI-Medicaid [id number] ANS-Medicaid [id number] ANSI-Medicaid [id number] ANSI-Medicaid [id number] MEDICAID M [id number] S [id number] UNAVAILABLE UNAVAILA BLE SELF PAY UNAVAILABLE SP UNAVAILA BLE SELF PAY ONLY UNAVAILABLE UNAV AILABLE MEDICAID [id number] SP [id number] Problems, Conditions, and Diagnoses Code Display Name Description Problem Type Effective Dates Data Source(s) V70.0 Encounter for general adult medical exam ination with abnormal findings Encounter for general adult medical examination with abnormal findings 10/21/2019 02:38:37 PM EDT [facility] [id number] Procedure by method Procedure by Method Problem 0 10/21/2019 12:00:00 AM EDT [place] ([facility] er) [id number] Procedure by method Procedure by Method Problem 0 10/21/2019 12:00:00 AM EDT [place] ([facility] er) [id number] Procedure by method Procedure by Method Problem 0 10/21/2019 12:00:00 AM EDT [place] ([facility]) [id number] Procedure by method Procedure by Method Problem 0 10/21/2019 12:00:00 AM EDT [place] ([facility] er) C18.2 Malignant neoplasm of ascending colon Ma lignant neoplasm of ascending colon 07/17/2019 03:08:27 PM EDT [facility] Z93.3 Colostomy status H/O: colostomy 07/17/2019 03:0 8:27 PM EDT [facility] [id number] Colostomy present Colostomy Present Problem 07/16 12:00:00 AM EDT [place] ([facility] er) [id number] Malignant tumor of ascending colon Malignant Rafita or of Ascending Colon Problem 07/17/2019 12:00:00 AM EDT [place] ([facility]) [id number] Colostomy present Colostomy Present Problem 07/16 12:00:00 AM EDT [place] ([facility]) [id number] Malignant tumor of ascending colon Malignant Rafita or of Ascending Colon Problem 07/17/2019 12:00:00 AM EDT [place] ([facility]) [id number] Colostomy present Colostomy Present Problem 07/16 12:00:00 AM EDT [place] ([facility] er) [id number] Malignant tumor of ascending colon Malignant Rafita or of Ascending Colon Problem 07/17/2019 12:00:00 AM EDT [place] ([facility]) [id number] Colostomy present Colostomy Present Problem 07/16 12:00:00 AM EDT [place] ([facility]) [id number] Malignant tumor of ascending colon Malignant Rafita or of Ascending Colon Problem 07/17/2019 12:00:00 AM EDT [place] ([facility]) K65.1 Peritoneal abscess Peritoneal abscess Diagnosis 08:19:05 PM [facility] left ileo psoas abscess and free air left ileo p soas abscess and free air Diagnosis 05/31/2019 06:13:27 PM [facility] Surgeries/Procedures Procedure Description Date Indications Data Source(s) Colonoscopy Thru Stoma Remove Tumor/Polyp/Lesion Snare Techn ique 03/25/2020 12:00:00 AM [place] ([facility] Pr t[facility]ana, ) RADIOLOGY REPORT RADIOLOGY REPORT 06/01/2019 1:23 PM EST 06/01/2019 06:23:47 PM [facility] IR IMAGE GUIDED NEEDLE DRAIN PROCEDURE IR IMAGE GUIDED NEED LE DRAIN PROCEDURE STAT 06/01/2019 1:10 PM EST 06/01/2019 06:10:00 PM [facility] BLOOD COUNT COMPLETE AUTOMATED CBC Routine 06/01/2019 5:59 A M EST 06/01/2019 10:59:00 AM [facility] PHOSPHORUS INORGANIC PHOSPHORUS LEVEL Routine 06/01/2019 5:[address] 06/01/2019 10:59:00 AM [facility] MAGNESIUM MAGNESIUM LEVEL Routine 06/01/2019 5:59 AM EST 06/01/2019 10:59:00 AM [facility] BASIC METABOLIC PANEL CALCIUM TOTAL BASIC METABOLIC PANEL Routi ne 06/01/2019 5:59 AM EST 06/01/2019 10:59:00 AM [facility] CT ABDOEN & PELVIS W/CONTRAST MATERIAL CT ABDOMEN PELVIS WI TH CONTRAST [id number] STAT 06/01/2019 12:16 AM EST 06/01/2019 05:16:56 AM [facility] BASIC METABOLIC PANEL CALCIUM IONIZED POCT ISTAT CHEM8 Routine 05/31/2019 7:11 PM EST 06/01/2019 12:11:00 AM [facility] BLOOD GASES ANY COMBINATION PH PCO2 PO2 CO2 HCO3 POCT ISTAT VBG /LAC Routine 05/31/2019 7:07 PM EST 06/01/2019 12:07:00 AM [facility] THROMBOPLASTIN TIME PARTIAL PLASMA/WHOLE BLOOD PARTIA L THROMBOPLASTIN TIME (PTT) STAT 05/31/2019 7:00 PM EST 06/01/2019 12:00 :00 AM [facility] PROTHROMBIN TIME PROTIME INR STAT 05/31/2019 7:00 PM EST 06/01/2019 12:00:00 AM [facility] BLOOD COUNT COMPLETE AUTO&AUTO DIFRNTL WBC COUNT CBC AND DIFFER ENTIAL STAT 05/31/2019 7:00 PM EST 06/01/2019 12:00:00 AM [facility] BLOOD TYPING ABO TYPE AND SCREEN STAT 05/31/2019 7:00 PM EST 06/01/2019 12:00:00 AM [facility] HEPATIC FUNCTION PANEL HEPATIC FUNCTION PANEL A STAT 0 7:00 PM EST 06/01/2019 12:00:00 AM [facility] BASIC METABOLIC PANEL CALCIUM TOTAL BASIC METABOLIC PANEL STAT 05/31/2019 7:00 PM EST 06/01/2019 12:00:00 AM [facility] EKG ED PHYSICIAN INTERPRETATION EKG ED PHYSICIAN INTERPRETATION Routine 05/31/2019 6:32 PM EST 05/31/2019 11:32:46 PM [facility] EKG 12-LEAD - CMAXX REPORT EKG 12-LEAD - CMAXX REPORT 05/31/2019 6:23 PM EST 05/31/2019 11:23:11 PM EST [facility] EKG 12-LEAD - CMAXX REPORT EKG 12-LEAD - CMAXX REPORT 05/31/2019 6:23 PM EST 05/31/2019 11:23:11 PM EST U [facility] EKG 12-LEAD EKG 12-LEAD STAT 05/31/2019 6:23 PM EST 05/31/2019 11:23:11 PM [facility] EKG 12-LEAD - CMAXX REPORT EKG 12-LEAD - CMAXX REPORT 05/31/2019 6:23 PM EST 05/31/2019 11:23:00 PM EST [facility] Results ID Date Data Source [id number] 06/15/2020 04:13:54 PM EST [facility] [place] Name Value Range Interpretation Code Description Data Amarilis rce(s) Supporting Document(s) WBC 9.6 10*3/uL (4.1-11.0) [facility] [place] RBC 2.54 10*6/uL (4.60-6.10) L [facility] HGB 8.2 g/dL (13.5-18.0) L [facility] HCT 24.0 % (41.0-53.0) L [facility] PATIENT TRANSFUSED MCV 94.5 fL (80.0-95.0) [facility] MCH 32.4 pg (27.0-32.0) H [facility] MCHC 34.3 g/dL (32.0-36.0) [facility] RDW 14.8 % (10.5-14.5) H [facility] PLT 260 10*3/uL (150-450) [facility] MPV 6.8 fL (7.1-10.7) L [facility] ID Date Data Source [id number] 06/15/2020 04:28:53 PM EST [facility] CLERICAL CHECK CLERICAL CHEC K OKPRE RXN SPEC DEBORAH NORMALPOST RXN SPEC DEBORAH NORMALTRANSFUSION REACTION SEE SEPARATE TRANSFUSION REACTION REPORT FOR PAT HOLOGIST INTERPRETATION.TESTING SITE PERFORMED AT [address] [place], [place] [address]PATIENT ABO/Rh O POSITIVEDAT, C3 SPECIFIC NEGATIVEPOST RX NAHID NEGATIVE Name Value Range Interpretation Code Description Data Amarilis rce(s) Supporting Document(s) ID Date Data Source [id number] 06/16/2020 02:07:29 AM EST [facility] [place] PATIENT ABO/Rh O POSITIVEANT IBODY SCREEN NEGATIVESPEC EXP DATE 06/18/2020TESTING SITE PERFORMED AT [address] [address]BLOOD BANK COMMENT BLOOD TYPE CONFIRMED.UNIT NUMBER [id number] COMPONENT TYPE LEUKOPOOR RED CELLSUNIT DIVISION 00STATUS OF UNIT TRANSFUSEDTRANSFUSION STATUS OK TO TRANSFUSECROSSMATCH RESULT COMPATIBLE Name Value Range Interpretation Code Description Data Amarilis rce(s) Supporting Document(s) TYPE AND CROSSMATCH [facility] [place] PATIENT ABO/Rh O POSITIVE ID Date Data Source [id number] 06/15/2020 07:26:44 AM EST [facility] [place] Name Value Range Interpretation Code Description Data Amarilis rce(s) Supporting Document(s) WBC 9.7 10*3/uL (4.1-11.0) [facility] [place] RBC 2.00 10*6/uL (4.60-6.10) L [facility] HGB 6.7 g/dL (13.5-18.0) LL [facility] RESULT(S) CALLED TO AND READ BACK ANA ALONSO ON 5S AT 0725 ON 06/15/20 [place] [id number] HCT 19.3 % (41.0-53.0) LL [facility] MCV 96.7 fL (80.0-95.0) H [facility] MCH 33.3 pg (27.0-32.0) H [facility] MCHC 34.5 g/dL (32.0-36.0) [facility] RDW 13.7 % (10.5-14.5) [facility] PLT 259 10*3/uL (150-450) [facility] MPV 6.9 fL (7.1-10.7) L [facility] ID Date Data Source [id number] 06/14/2020 07:43:25 AM EST [facility] Name Value Range Interpretation Code Description Data Amarilis rce(s) Supporting Document(s) SODIUM 140 mmol/L (136-145) [facility] POTASSIUM 3.7 mmol/L (3.6-5.2) [facility] CHLORIDE 106 mmol/L (100-108) [facility] CO2 25 mmol/L (22-31) [facility] ANION GAP 9 mmol/L (7-16) [facility] UREA NITROGEN 10 mg/dL (7-24) [facility] CREATININE 0.60 mg/dL (0.80-1.30) L [facility] BUN/CREAT RATIO 16.7 RATIO (10.0-20.0) [facility] GLUCOSE 89 mg/dL (70-99) [facility] CALCIUM 7.8 mg/dL (8.4-10.2) L [facility] GFR >60 ml/min/1.73m2 (>59) [facility] GFR ( AMER) >60 ml/min/1.73m2 (>59) [facility] GFR INTERPRETATION [facility] --NORMAL KIDNEY FUNCTION OR MILD DISEASE - GFR >OR= 60CHRONIC KIDNEY DISEASE - GFR 15 - 59RENAL FAILURE - GFR <15 Est. GFR calculation based on the MDRDstudy equation, which assumes a steadystate for creatinine. Est. GFR should notbe used for medication dosing. ID Date Data Source [id number] 06/14/2020 07:22:07 AM EST [facility] Name Value Range Interpretation Code Description Data Amarilis rce(s) Supporting Document(s) WBC 11.6 10*3/uL (4.1-11.0) H [facility] RBC 2.20 10*6/uL (4.60-6.10) L [facility] HGB 7.1 g/dL (13.5-18.0) L [facility] HCT 21.5 % (41.0-53.0) L [facility] MCV 97.4 fL (80.0-95.0) H [facility] MCH 32.4 pg (27.0-32.0) H [facility] MCHC 33.2 g/dL (32.0-36.0) [facility] RDW 13.6 % (10.5-14.5) [facility] PLT 217 10*3/uL (150-450) [facility] MPV 7.0 fL (7.1-10.7) L [facility] ID Date Data Source [id number] 06/13/2020 07:58:24 AM EST [facility] Name Value Range Interpretation Code Description Data Amarilis rce(s) Supporting Document(s) SODIUM 142 mmol/L (136-145) [facility] POTASSIUM 4.1 mmol/L (3.6-5.2) [facility] CHLORIDE 108 mmol/L (100-108) [facility] CO2 25 mmol/L (22-31) [facility] ANION GAP 9 mmol/L (7-16) [facility] UREA NITROGEN 12 mg/dL (7-24) [facility] CREATININE 0.57 mg/dL (0.80-1.30) L [facility] BUN/CREAT RATIO 21.1 RATIO (10.0-20.0) H [facility] GLUCOSE 82 mg/dL (70-99) [facility] CALCIUM 7.8 mg/dL (8.4-10.2) L [facility] GFR >60 ml/min/1.73m2 (>59) [facility] GFR ( AMER) >60 ml/min/1.73m2 (>59) [facility] GFR INTERPRETATION [facility] --NORMAL KIDNEY FUNCTION OR MILD DISEASE - GFR >OR= 60CHRONIC KIDNEY DISEASE - GFR 15 - 59RENAL FAILURE - GFR <15 Est. GFR calculation based on the MDRDstudy equation, which assumes a steadystate for creatinine. Est. GFR should notbe used for medication dosing. ID Date Data Source [id number] 06/13/2020 07:39:09 AM EST [facility] Name Value Range Interpretation Code Description Data Amarilis rce(s) Supporting Document(s) WBC 13.2 10*3/uL (4.1-11.0) H [facility] RBC 2.15 10*6/uL (4.60-6.10) L [facility] HGB 7.1 g/dL (13.5-18.0) L [facility] HCT 21.2 % (41.0-53.0) L [facility] MCV 98.5 fL (80.0-95.0) H [facility] MCH 33.0 pg (27.0-32.0) H [facility] MCHC 33.5 g/dL (32.0-36.0) [facility] RDW 13.9 % (10.5-14.5) [facility] PLT 170 10*3/uL (150-450) [facility] MPV 7.4 fL (7.1-10.7) [facility] ID Date Data Source [id number] 06/12/2020 08:20:25 AM EST [facility] Name Value Range Interpretation Code Description Data Amarilis rce(s) Supporting Document(s) SODIUM 141 mmol/L (136-145) [facility] POTASSIUM 4.2 mmol/L (3.6-5.2) [facility] CHLORIDE 108 mmol/L (100-108) [facility] CO2 27 mmol/L (22-31) [facility] ANION GAP 6 mmol/L (7-16) L [facility] UREA NITROGEN 15 mg/dL (7-24) [facility] CREATININE 0.91 mg/dL (0.80-1.30) [facility] BUN/CREAT RATIO 16.5 RATIO (10.0-20.0) [facility] GLUCOSE 98 mg/dL (70-99) [facility] CALCIUM 7.5 mg/dL (8.4-10.2) L [facility] GFR >60 ml/min/1.73m2 (>59) [facility] GFR ([facility] AMER) >60 ml/min/1.73m2 (>59) [facility] GFR INTERPRETATION [facility] --NORMAL KIDNEY FUNCTION OR MILD DISEASE - GFR >OR= 60CHRONIC KIDNEY DISEASE - GFR 15 - 59RENAL FAILURE - GFR <15 Est. GFR calculation based on the MDRDstudy equation, which assumes a steadystate for creatinine. Est. GFR should notbe used for medication dosing. ID Date Data Source [id number] 06/12/2020 08:20:25 AM EST [facility] [place] Name Value Range Interpretation Code Description Data Amarilis rce(s) Supporting Document(s) PHOSPHORUS 3.3 mg/dL (2.5-4.5) [facility] ID Date Data Source [id number] 06/12/2020 08:20:25 AM EST [facility] Name Value Range Interpretation Code Description Data Amarilis rce(s) Supporting Document(s) MAGNESIUM 1.7 mg/dL (1.7-2.4) [facility] ID Date Data Source [id number] 06/12/2020 07:50:13 AM EST [facility] Name Value Range Interpretation Code Description Data Amarilis rce(s) Supporting Document(s) WBC 14.0 10*3/uL (4.1-11.0) H [facility] RBC 2.82 10*6/uL (4.60-6.10) L [facility] HGB 9.5 g/dL (13.5-18.0) L [facility] HCT 27.7 % (41.0-53.0) L [facility] MCV 98.4 fL (80.0-95.0) H [facility] MCH 33.6 pg (27.0-32.0) H [facility] MCHC 34.2 g/dL (32.0-36.0) [facility] RDW 13.6 % (10.5-14.5) [facility] PLT 191 10*3/uL (150-450) [facility] MPV 7.7 fL (7.1-10.7) [facility] ID Date Data Source [id number] 06/19/2020 01:00:46 AM EST [facility] [place] [id number]# SURGICAL PATHOLOGY REPORTPatient Name:EVERTON STEPHENSON:1975Received:06/11/2020ccession #:[id number](s) Received: A: End of rectumB: ColostomyC: Transverse colonD: IleostomyE: Colonic ringsF: Ileocolonic ringsClinical Diagnosis and History: Ileostomy status, colostomy status, history of colon carcinoma. Chemocompleted 04/05/20, in remission. DIAGNOSIS:A) END OF RECTUM BENIGN LARGE INTESTINE.B) COLOSTOMY BENIGN SKIN AND ADJACENT COLONIC MUCOSA, CONSISTENT WITH COLOSTOMY WITH FOCAL MULTINUCLEATED GIANT CELL REACTION TO SUTURE MATERIAL.C) TRANSVERSE COLON BENIGN LARGE INTESTINE.D) ILEOSTOMY BENIGN SMALL INTESTINE AND ADJACENT SKIN, CONSISTENTWITH ILEOSTOMY.E) COLONIC RINGS TWO FRAGMENTS OF BENIGN COLON.F) ILEOCOLONIC RINGS FRAGMENTS OF BENIGN SMALL AND LARGE INTESTINE. GROSS DESCRIPTION: Specimen A received in formalin labeled "end of rectum" is a 2.0 cmsegment of large bowel measuring 3.0 cm in diameter. The specimen isstapled at one margin. There is a moderate amount of attached pericolonicfat. The serosa is largely covered by fat. The nelida are removed. Thenon-stapled margin is inked with black ink. The lumen is lined bytan-pink mucosa with the usual folds. No focal lesions are identifie d. Sections are submitted for microscopic examination. (2 blocks) Specimen B received in formalin labeled "colostomy" is a 1.5 cm segment oflarge bowel measuring 3.3 cm in diameter. At one margin of the specimenthere is annular portion of hennessy-pink skin measuring up to 0.3 cm in widththrough which protrudes a portion of glistening hennessy-pink mucosa. No focallesions of the lining are identified. Sections are submitted formicroscopic examination. (1 block) Specimen C received in formalin labeled "transverse colon" is a 3.5 cmsegment of apparent large bowel with a large amount of attached fat andfibrous tissue. One end is opened and has an attached blue suture. Theopposite margin ends blindly and contains multiple surgical nelida. Thelumen is lined by hennessy-pink glistening mucosa with the usual folds. Sections are submitted for microscopic examination. (1 block) Specimen D received in formalin labeled "ileostomy" is a 2.6 cm segment ofbowel measuring 3.0 cm in length. At one end there is an attached annularfragment of hennessy-white skin measuring up to 0.5 cm in width through whichprotrudes a portion of mucosa. No focal lesions over the lining lumen isidentified. Sections are submitted for microscopic examination. (1block) Specimen E received in formalin labeled "colonic rings" are two annularfragments of hennessy-pink bowel, one received on a plastic surgical device. They average 2.0 cm in diameter and 1.0 cm in length. The mucosa of eachis smooth, hennessy-pink and glistening to hyperemic. No focal lesions areidentified. A section through each is submitted for microscopicexamination. (1 block) Specimen F received in formalin labeled "ileocolonic rings" are twocomplete annular fragments of hennessy-pink bowel each measuring 1.5 cm indiameter and 1.0 cm in width. The mucosal surfaces are hennessy-pink tohyperemic and glistening. No focal lesions are identified. A sectionthrough each is submitted for microscopic examination. (1 block) ahsan/[email or web address]: 06/19/2020Electronically Signed Out By Gali White D.O. jzwPathology Associates of Cape GirardeauBradley[address] [place], [place] [address]Technical component performed at [facility], Histopathology, [address] [place] [address], [id number].Reported at [facility], [address] [place] [address], [facility].This report may include immunohistochemical or in-situ hybridizationresults. Testing was developed and the performance characteristicsdetermined by [facility], as required byCLIA '88. The FDA has determined that approval for specific use is notnecessary for clinical use. The quality of Hematoxylin and Eosin stainsand as applicable, for all immunohistochemical and/or special stains,including positive and negative controls, were reviewed and consideredappropriate.ICD codes: Z85.892LPO1 codes: A: 24640QM: 18070XU: 86403SL: 74311DT: 21456YE: 43436R Name Value Range Interpretation Code Description Data Amarilis rce(s) Supporting Document(s) ID Date Data Source [id number] 06/14/2020 04:05:00 PM [place], [place] [address]PATIENT NAME: EVERTON STEPHENSONDATE OF : 1975REPORT: OPERATIONPATIENT NUMBER: [id number] STATUS: IPMEDICAL RECORD NUMBER: [id number] OF ADMISSION: 1DATE OF DISCHARGE:ROOM: 01DATE OF PROCEDURE: 1PREOPERATIVE DIAGNOSES: 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 Perinealarea with Betadine with the patient in lithotomy position and draped withsterile towels and draped in standard fashion. Previous used midlineincision was used to enter the abdomen. There was numerous dense adhesionsand it took over an hour to lyse all of the adhesions of the small bowel.This allowed us to eventually get down and find the end of the sigmoidcolon which was the Anyi's pouch. Once we had that well identified, wecleansed it and resected the ends utilizing the contour stapler, freedom. We then freed up the adhesions of the small bowel from thetransverse colon, identified the entire remaining transverse colon. Therewas an end colostomy. This was taken down by doing elliptical incisionaround the ostomy carrying it down to the abdominal wall and dissecting theostomy free from the rectus muscle and delivered it into the abdomen. Theend was freshened and an automatic pursestring clamp was placed across,fired, and a small portion of the colon distal to this was removed. Deb placed a 29-mm circular anvil. We then went to try to do [id number] anastomosis, but the circular stapler could not be passed fromthe anus all the way to the end adequately or even fine enough to do [id number]. Therefore, we cleansed the Anyi's pouch once again fromwhere the staple line was and placed an Shaka Allyn across and resectedthe staple line from the contour. A 2-0 Prolene was then used to place apursestring. We removed the anvil from the end of the transverse colon.We then placed a 2-0 Prolene pursestring stitch. Utilizing the stapler, wewent to the proximal end of the transverse colon. This was cleansed and anAllen Allyn placed across and the scarred end removed. We then were ableto open this and passed the stapler down to the remaining transverse colonto the end. We were able to tie the pursestring and the axle of thestapler out. The anvil was then secured in the rectum. The pack wasdrained, and we were able to do an end-to-end anastomosis. At completion,rings were totally intact. We filled the pelvis with saline and dilatedand there was no bubbles with the bowel being clamped off above theanastomosis. We then turned our attention to the end ileostomy, this wastaken down. I left the completion through the skin down to the abdominalwall and freeing the attachments through the rectus sheath and deliveringthe bowel to the cavity. Terminally and proximal to the ostium, wecleansed the surrounding fat and mesentery and Shaka Allyn placed acrossand the ostomy excised. A 2-0 [address] was used to place a pursestring. A25 mm circular anvil was secured. We then passed the stapler from the endof the transverse colon and did an end-ileostomy this side of thetransverse colon anastomosis distal to the cut end forapproximately 6 cm. The end of the colon was then closed utilizing the contour during stapling. All anastomosis were intact, pink and healthy. We checked for hemostasis, it was intact. We irrigated with Irrisept and saline, changed gloves. The ostomy sites were closed internally with number 0 PDS and the anterior rectus muscle closed with 0 PDS vertically with colostomy site and transversely at the ileostomy site. The midline incision was closed with 1 PDS, one suture from cephalad, one from caudad end. The wounds were well irrigated. Skin nelida applied. Sponge, instrument, needle count was reported as correct. Blood loss was under 150 cc. Anesthesia proceeded at this point to place a TAP block.DICTATED BY: BEATRIZ Nassarictated: 06/11/2020 11:58DT: 06/11/2020 14:00Job #: [id number]: Abisai AlvarengaNOTE: [facility] computer generated reports are not confirmed orauthenticated unless they are signed by the providerElectronically Authenticated and Edited by:SHERRY HENDERSON MD On 06/14/2020 04:05 PM EST Name Value Range Interpretation Code Description Data Amarilis rce(s) Supporting Document(s) ID Date Data Source [id number] 06/15/2020 05:19:50 AM EST Lab [facility] SPEC EXP DATE 06/14/2020TEST ING SITE PERFORMED AT [address] [place], [place] [address]UNIT NUMBER [id number] COMPONENT TYPE LEUKOPOOR RED CELLSUNIT DIVISION 00STATUS OF UNIT REL FROM ALLOCTRANSFUSION STATUS OK TO TRANSFUSECROSSMATCH RESULT COMPATIBLE Name Value Range Interpretation Code Description Data Amarilis rce(s) Supporting Document(s) ID Date Data Source [id number] 06/09/2020 12:00:00 AM EST [facility] Name Value Range Interpretation Code Description Data Amarilis rce(s) Supporting Document(s) SARS-CoV-2 (COVID-19) RNA [Presence] in Respiratory specimen by AGUSTIN with probe detection Not Detected [facility] This lab was ordered by [facility] and reported by [employer] ID Date Data Source [id number] 06/07/2020 03:33:02 PM EST [facility] SPEC EXP DATE 06/14/2020ATI ENT ABO/Rh O POSITIVEANTIBODY SCREEN NEGATIVETESTING SITE PERFORMED AT [address] [place] [id number] Name Value Range Interpretation Code Description Data Amarilis rce(s) Supporting Document(s) TYPE AND SCREEN [facility] PATIENT ABO/Rh O POSITIVE ID Date Data Source [id number] 06/07/2020 02:39:11 PM EST [facility] Name Value Range Interpretation Code Description Data Amarilis rce(s) Supporting Document(s) SODIUM 142 mmol/L (136-145) [facility] POTASSIUM 4.4 mmol/L (3.6-5.2) [facility] CHLORIDE 106 mmol/L (100-108) [facility] CO2 30 mmol/L (22-31) [facility] ANION GAP 6 mmol/L (7-16) L [facility] UREA NITROGEN 12 mg/dL (7-24) [facility] CREATININE 0.86 mg/dL (0.80-1.30) [facility] BUN/CREAT RATIO 14.0 RATIO (10.0-20.0) [facility] GLUCOSE 92 mg/dL (70-99) [facility] CALCIUM 9.6 mg/dL (8.4-10.2) [facility] GFR >60 ml/min/1.73m2 (>59) [facility] GFR ( AMER) >60 ml/min/1.73m2 (>59) [facility] [place] GFR INTERPRETATION [facility] --NORMAL KIDNEY FUNCTION OR MILD DISEASE - GFR >OR= 60CHRONIC KIDNEY DISEASE - GFR 15 - 59RENAL FAILURE - GFR <15 Est. GFR calculation based on the MDRDstudy equation, which assumes a steadystate for creatinine. Est. GFR should notbe used for medication dosing. ID Date Data Source [id number] 06/07/2020 02:21:02 PM EST [facility] Name Value Range Interpretation Code Description Data Amarilis rce(s) Supporting Document(s) WBC 8.7 10*3/uL (4.1-11.0) [facility] [place] RBC 4.52 10*6/uL (4.60-6.10) L [facility] HGB 15.1 g/dL (13.5-18.0) [facility] HCT 44.0 % (41.0-53.0) [facility] [address] [facility] [address] MCV 97.2 fL (80.0-95.0) H [facility] MCH 33.3 pg (27.0-32.0) H [facility] MCHC 34.3 g/dL (32.0-36.0) [facility] RDW 13.7 % (10.5-14.5) [facility] PLT 250 10*3/uL (150-450) [facility] MPV 6.7 fL (7.1-10.7) L [facility] ID Date Data Source [id number] 06/05/2020 12:00:00 AM EST [facility] Name Value Range Interpretation Code Description Data Amarilis rce(s) Supporting Document(s) SARS-CoV-2 (COVID-19) RNA [Presence] in Respiratory specimen by AGUSTIN with probe detection Not Detected [facility] This lab was ordered by [facility] and reported by [employer] ID Date Data Source [id number] 05/03/2020 12:00:00 AM EST [facility] Name Value Range Interpretation Code Description Data Amarilis rce(s) Supporting Document(s) SARS-CoV-2 (COVID-19) RNA [Presence] in Respiratory specimen by AGUSTIN with probe detection [facility] This lab was ordered by [facility] and reported by [employer] ID Date Data Source [id number] 04/28/2020 09:20:00 AM EST [facility] ([facility]) Name Value Range Interpretation Code Description Data Amarilis rce(s) Supporting Document(s) barbiturates screen, blood negative cutoff:0.1 normal B arbiturates Screen, Blood [facility]) amphetamines screen, blood negative cutoff:50 normal Amphetami binu Screen, Blood [facility]) cannabinoid screen, blood ++positive++ cutoff:5 Abnorm al (applies to non-numeric results) Cannabinoid Screen, Blood [place] ([facility]) cocaine + metab. screen, blood negative cutoff:25 normal Cocaine + Metab. Screen, Blood [facility]) opiates screen, blood negative cutoff:5 normal Opiates Screen , Blood [facility]) benzodiazepines screen, blood negative cutoff:20 normal Benzodiazepines Screen, Blood [facility]) phencyclidine screen, blood negative cutoff:8 normal Phencyclidine Screen, Blood [place] ([facility]) oxycodone screen negative cutoff:5 normal Oxycodone Screen AT [facility]) cannabinoid confirmation positive . normal Cannabinoid Confirmation [facility]) tetrahydrocannabinol(THC) 19.8 NG/mL . normal tetrahydro cannabinol(THC) [facility]) carboxy-THC 42.2 NG/mL . normal Carboxy-thc [facility]) cannabinol negative . normal Cannabinol [facility]) hydroxy-THC 4.7 NG/mL . normal Hydroxy-thc [place] ([facility]) cannabidiol negative . normal Cannabidiol [place] ([facility]) ID Date Data Source [id number] 03/25/2020 12:06:00 PM EST [facility] Name Value Range Interpretation Code Description Data Amarilis rce(s) Supporting Document(s) Surgical pathology study Laboratory test result [facility] ([facility], ) FINAL DIAGNOSIS Colon, polyp, polypectomy: Tubular adenoma. 03/26/2020 - 1219 CLINICAL DIAGNOSIS Colon cancer 03/25/20201522 GROSS DIAGNOSIS Received in formalin labeled "snare colon polyp" is one fragment of hennessy tissue, 0.3 x 0.3 x 0.2 cm. All in one. -SV 03/25/20201522 Signed ALYSIA QUINTANILLA MD 03/26/2020 1221 ID Date Data Source [id number] 03/20/2020 09:20:00 AM EST [facility] Name Value Range Interpretation Code Description Data [facility] rce(s) Supporting Document(s) SARS coronavirus 2 RNA [facility] This lab was ordered by [facility] and reported by [facility]. ID Date Data Source [id number] 11/24/2019 10:27:38 AM EDT [facility] Measurements & CalculationsHeight: 69 inches (5 ft. 9 in.) 175.26 cm Weight: 134 pounds 60.91 kg Body Mass Index (BMI): 19.86BMI Interpretation: Healthy WeightBody Surface Area (BSA): 1.74Weight Management Education Done (Nutrition/Physical Activity)Vital SignsTemperature: 97.0FPulse Rate: 90 beats/minuteRespiratory Rate: 18 respirations/minuteBlood Pressure: 126/88 O2 Saturation: 96% Vital Signs performed by: Swathi Mulligan MA, November 24, 2019 10:30 AMInitial Intake Information From: patientRoom #: 14Infectious Disease / Travel ScreeningRecent travel for you or any close contacts? NoHave you had any close contact with anyone diagnosed with or under investigation for COVID-19 (coronavirus)? NoFever? NoRespiratory symptoms: cough, cold, congestion, shortness of breath, difficulty breathing? NoLoss of smell? NoLoss of taste? NoSmoking, Tobacco, Vaping or Smoke Exposure StatusSmoke Status: current every day smokerTobacco Use: YesAdv to Quit: YesDo you vape? YesCessation advice given: YesWhat is in your device? nicotineFrequency: current every day vaperHealthcare HistorySince your last office visit...Have you been admitted to the hospital? NoHave you been to an emergency room (ER) or urgent care clinic? No - [facility] Emergency room (ER) or urgent care date reported today: 09/09/2019Have you seen another healthcare provider? Yes - Oncology Have you seen a dentist? NoIntake performed by: Swathi Mulligan MA, November 24, 2019 10:28 AMRate Your HealthIn general, would you say your health is? GoodPain AssessmentAre you currently having any pain which... You would like your provider to address? No Affects your activity level? NoDepression Screening - PHQ-2Over the last two weeks, have you... Had little interest or pleasure in doing things? Not at all Been feeling down, depressed, or hopeless? Not at all PHQ-2 Score: 0Anxiety Screening - IQRA-2Over the last two weeks, have you been... Feeling nervous, anxious, or on edge? Not at all Unable to stop or control worrying? Not at all IQRA-2 Score: 0Screening, Brief Intervention, & Referral to Treatment (SBIRT)Pre-Screening Questions How many times have you have 5 or more drinks in a day? 0How many times have you used an illegal drug or used a prescription medication for a non-medical reason? 0Performed by: Swathi Mulligan MA, November 24, 2019 10:29 AMPatient History Medical History:Cancer - ColorectalSepsisDVT in leg Surgical History:colon resecton colectomystoma x 2Family History:Social/Personal History: Advised to Quit/Tobacco Education: YesChief Complaintmeds and letter sor SSIHistory of Present Illness (HPI)Here to discuss disability status. 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 He has asked his oncologist their opinion on his ability to work and he feels like they do not want to address this. I have kept him out of work until December 14 but apparently [facility] has told him that they will not acccept temporary disability. The last oncology notes I have are from 3 months ago.He was also recently seen in the ER and diagnosed with DVT in hia leg and he s now on blood thinners.HPI performed by: Daniel Henderson MD, November 24, 2019 11:21 AMTransitions of Care InboundAdult Preventive CareScreening Tobacco Screening: Smoking Status: current every day smoker (11/24/2019) Tobacco Use: Currently (11/24/2019) Advised to Quit: Yes (11/24/2019)Labs/Meds/Other Counseling-Nutrition and Physical Activity:BMI Interpretation: Healthy Weight (11/24/2019) Counseling: Done (11/24/2019) Physical Activity: Done (11/24/2019)Review of Systems General: Denies chills, dizziness, fatigue, fever. Cardiovascular: Denies chest pain. Respiratory: Denies shortness of breath. Gastrointestinal: Denies diarrhea, constipation. Genitourinary: Denies pain with urination, urinary frequency, urinary urgency, incomplete emptying. Physical ExamGeneral Appearance: well nourished, well hydrated, no acute distressRespiratory, Auscultation: clear to auscultation bilaterally; no rales, rhonchi, or wheezesRespiratory, Effort: no intercostal retractions or use of accessory musclesCardiovascular, Auscultation: S1, S2 audible; no murmur, rub, or gallop; RRRGait & Station: normalSkin, Inspection: no rashes, lesions, or ulcerationsOrientation: oriented to time, place, and personMood & Affect: no depression, anxiety, or agitationJudgment & Insight: intactCare Management Plan Transitions of CareInboundRate Your HealthIn general, would you say your health is? GoodAssessment & Plan Problems:Assessed:Malignant neoplasm of ascending colon (JMM63-M77.2) Assessment: Instructions: Offered to extend disability for 3 months from now due to finishing chemotherapy.but he left seemingly upset because it wanted it to be permanent and open ended.This is not an appropriate way to assess disability as I do not believe him to be permanently disabled.I would also like feedback from the oncologist. We will get more current office notes from them.He will cotninue the Eliquis for the DVT for now.Patient Instructions/Care Plan: Malignant neoplasm of ascending colon: Offered to extend disability for 3 months from now due to finishing chemotherapy.but he left seemingly upset because it wanted it to be permanent and open ended.This is not an appropriate way to assess disability as I do not believe him to be permanently disabled.I would also like feedback from the oncologist. We will get more current office notes from them.He will cotninue the Eliquis for the DVT for now. Plan developed in collaboration with patient and/or familyMedication Changes:Added: ELIQUIS TABLETRefilled:IBUPROFEN 800 MG ORAL TABLET-One po q6h prn pain. MDD 4. Qty: 60[Tablet] Refills: 0 Method: ElectronicOrders:Adult - Ofc Vst, EST, Level III [CPT-21698] Medications:IBUPROFEN 800 MG ORAL TABLET (IBUPROFEN) One po q6h prn pain. MDD 4. #60[Tablet] x 0 Route:ORAL Entered and Authorized by: Daniel Henderson MD Method used: Electronically to [facility]* (retail) [address] [place] [address] [address] [place] [address] Note to Pharmacy: Route: ORAL; RxID: [id number] signed by Daniel Henderson MD on 11/24/2019 at 11:26 AM Name Value Range Interpretation Code Description Data Amarilis rce(s) Supporting Document(s) ID Date Data Source [id number] 10/21/2019 01:46:48 PM EDT [facility] Measurements & CalculationsHeight: 69 inches (5 ft. 9 in.) 175.26 cm Weight: 134 pounds 60.91 kg Body Mass Index (BMI): 19.86BMI Interpretation: Healthy WeightBody Surface Area (BSA): 1.74Weight Management Education Done (Nutrition/Physical Activity)Vital SignsTemperature: 97.7FPulse Rate: 100 beats/minuteRespiratory Rate: 18 respirations/minuteBlood Pressure: 105/73 O2 Saturation: 96% Vital Signs performed by: Swathi Mulligan MA, October 21, 2019 1:51 PMInitial Intake Information From: patientRoom #: 14Infectious Disease / Travel ScreeningRecent travel for you or any close contacts? NoHave you had any close contact with anyone diagnosed with or under investigation for COVID-19 (coronavirus)? NoFever? NoRespiratory symptoms: cough, cold, congestion, shortness of breath, difficulty breathing? NoLoss of smell? NoLoss of taste? NoSmoking, Tobacco, Vaping or Smoke Exposure StatusSmoke Status: current every day smokerTobacco Use: YesAdv to Quit: YesDo you vape? YesCessation advice given: YesWhat is in your device? nicotineFrequency: current every day vaperHealthcare HistorySince your last office visit...Have you been admitted to the hospital? NoHave you been to an emergency room (ER) or urgent care clinic? No - [facility] Emergency room (ER) or urgent care date reported today: 09/09/2019Have you seen another healthcare provider? Yes - Oncology Have you seen a dentist? NoIntake performed by: Swathi Mulligan MA, October 21, 2019 1:49 PMRate Your HealthIn general, would you say your health is? FairPain AssessmentAre you currently having any pain which... You would like your provider to address? No Affects your activity level? NoDepression Screening - PHQ-2Over the last two weeks, have you... Had little interest or pleasure in doing things? Not at all Been feeling down, depressed, or hopeless? Not at all PHQ-2 Score: 0Anxiety Screening - IQRA-2Over the last two weeks, have you been... Feeling nervous, anxious, or on edge? Not at all Unable to stop or control worrying? Not at all IQRA-2 Score: 0PRAPARE Sociodemographic Characteristics Race: White Ethnicity: Not or Preferred L anguage: EnglishScreening, Brief Intervention, & Referral to Treatment (SBIRT)Pre-Screening Questions How many times have you have 5 or more drinks in a day? 0How many times have you used an illegal drug or used a prescription medication for a non-medical reason? 0Performed by: Swathi Mulligan MA, October 21, 2019 1:49 PMPatient History Medical History:Cancer - ColorectalSepsisSurgical History:colon resecton colectomystoma x 2Family History:Social/Personal History: Advised to Quit/Tobacco Education: YesChief Complaintannual and matHistory of Present Illness (HPI)Tries to stay active and eat healthy.Being treated for colon cancer with biweekly chemotherapy. This really wears him out. He has a colostomy and urostomy bag. Meeting with the surgeon in a few weeks to discuss revision surgery.Suboxone is helping and not causing any adverse effects.HPI performed by: Daniel Henderson MD, October 21, 2019 2:35 PMTransitions of Care InboundProblem ReviewProblem List was reviewed and/or updated during this visit. Medication Reconciliation & ReviewMedication List was reviewed and/or updated during this visit, including review of any mmih-are-ztmdxhl medications, herbal therapies, and/or supplements.Allergy ReviewAllergy List was reviewed and/or updated during this visit.Adult Preventive CareProvider Calculated and Reviewed all Clinical Protocols for patient today. Screening Tobacco Screening: Smoking Status: current every day smoker (10/21/2019) Tobacco Use: Currently (10/21/2019) Advised to Quit: Yes (10/21/2019)Labs/Meds/Other Counseling- Nutrition and Physical Activity:BMI Interpretation: Healthy Weight (10/21/2019) Counseling: Done (10/21/2019) Physical Activity: Done (10/21/2019)Review of Systems General: Denies dizziness, fatigue. Cardiovascular: Denies chest pain. Respiratory: Denies difficulty breathing, shortness of breath. Gastrointestinal: Complains of see HPI. Genitourinary: Complains of see HPI. Care Management Plan Transitions of CareInboundRate Your HealthIn general, would you say your health is? 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 Will draw serum drug screen with next routine labs.Patient Instructions/Care Plan: Encounter for general adult medical examination with abnormal findings: Up to date on preventive care.Diet and exercise.Malignant neoplasm of ascending colon: Recheck with cancer specialists and surgeons as scheduled.Opioid abuse with other opioid-induced disorder: Doing well.Continue current dose of Subxone. Will draw serum drug screen with next routine labs. Plan developed in collaboration with patient and/or familyMedications:ONDANSETRON HCL 4 MG ORAL TABLETIBUPROFEN 800 MG ORAL TABLETSUBOXONE 8-2 MG SUBLINGUAL FILMMedication Changes:Refilled:SUBOXONE 8-2 MG SUBLINGUAL FILM-One film once daily. MDD 1. VERENA [id number] ICD10 F11.10 Qty: 30[Film] Refills: 0 Method: ElectronicAllergies:No Known Allergies (updated 11/27/2018) Orders:Other Lab [[id number]] Adult - Ofc Vst, EST, Level III [CPT-53165] Follow-Up Return to clinic: 1 month. for follow upMedications:SUBOXONE 8-2 MG SUBLINGUAL FILM (BUPRENORPHINE HCL-NALOXONE HCL) One film once daily. MDD 1. VERENA [id number] ICD10 F11.10 #30[F ilm] x 0 Entered and Authorized by: Daniel Henderson MD Method used: Electronically to [facility]* (retail) [address] [place] [address] Fax: RxID: [id number] signed by Daniel Henderson MD on 10/21/2019 at 2:38 P M Physica l ExamGeneral Appearance: well nourished, well hydrated, no acute distressRespiratory, Auscultation: clear to auscultation bilaterally; no rales, rhonchi, or wheezesRespiratory, Effort: no intercostal retractions or use of accessory musclesCardiovascular, Auscultation: S1, S2 audible; no murmur, rub, or gallop; RRRPeripheral Circulation: no clubbing, cyanosis, edema, or varicositiesAbdomen: 2 stomas, abd soft, +BS X 4Gait & Station: normalSkin, Inspection: no rashes, lesions, or ulcerationsOrientation: oriented to time, place, and personMood & Affect: no depression, anxiety, or agitationJudgment & Insight: intactProgram Success Discharge Planning MAT Services Discharge Name Value Range Interpretation Code Description Data Amarilis rce(s) Supporting Document(s) ID Date Data Source [id number] 07/17/2019 02:51:10 PM EDT [facility] Measurements & CalculationsHeight: 69 inches 175.26 cm Weight: 116.8 pounds 53.09 kg Body Mass Index (BMI): 17.31BMI Interpretation: UnderweightBody Surface Area (BSA): 1.65Weight Management Education Done (Nutrition/Physical Activity)Vital SignsTemperature: 98.0F oral Pulse Rate: 113 beats/minuteRespiratory Rate: 20 respirations/minuteBlood Pressure: 109/76 left arm sitting automaticO2 Saturation: 98% room airVital Signs performed by: Vignesh Trevizo MA, July 17, 2019 2:58 PMInitial Intake Information from: ptRoom #: 15Smoking, Tobacco, Vaping or Smoke Exposure StatusSmoke Status: former smokerTobacco Use: YesDo you vape? NoPassive Smoke Exposure: YesHealthcare HistorySince your last office visit...Have you been admitted to the hospital? NoHave you been to an emergency room (ER) or urgent care clinic? Yes - smcHave you seen another healthcare provider? NoHave you seen a dentist? NoIntake performed by: Vignesh Trevizo MA, July 17, 2019 2:54 PMRate Your HealthIn general, would you say your health is? FairPain AssessmentAre you currently having any pain which... You would like your provider to address? No Affects your activity level? NoDepression Screening - PHQ-2Over the last two weeks, have you... Had little interest or pleasure in doing things? Not at all Been feeling down, depressed, or hopeless? Not at all PHQ-2 Score: 0Anxiety Screening - IQRA-2Over the last two weeks, have you been... Feeling nervous, anxious, or on edge? Not at all Unable to stop or control worrying? Not at all IQRA-2 Score: 0Infectious Disease / Travel ScreeningRecent travel for you, your family, and/or any sexual partners? NoScreening, Brief Intervention, & Referral to Treatment (SBIRT)Pre- Screening Questions How many times have you have 5 or more drinks in a day? 0How many times have you used an illegal drug or used a prescription medication for a non-medical reason? 0Performed by: Vignesh Trevizo MA, July 17, 2019 2:55 PMPatient History Medical History:Cancer - ColorectalSepsisSurgical History:colon resecton colectomystoma x 2Family History:Social/Personal History: [facility] d/cHistory of Present Illness (HPI)I, Vignesh Trevizo MA, am scribing for, and in the presence of, Edgar Beck DO pt was in ER he had three sx dx'd with colon cancer. two stomas and two colostomy bags. Transitions of Care InboundAdult Preventive CareLabs/Meds/Other Counseling-Nutrition and Physical Activity:BMI Interpretation: Underweight (07/17/2019) Counseling: Done (04/01/2019) Physical Activity: Done (04/01/2019)Review of Systems General: Denies loss of appetite, chills, dizziness, fatigue, fever, continued fever, headache, feeling ill, sweats, night sweats, sleep disturbances, weight loss. Cardiovascular: Denies chest pain, palpitations, feeling faint, trouble breathing w/exertion, SOB upon lying down, SOB at night, peripheral edema, elevated blood pressure, decreased heart rate. Respiratory: Denies cough, difficulty breathing, shortness of breath, excessive sputum, coughing up blood, wheezing, chest pain. Gastrointestinal: Complains of diarrhea. Physical ExamGeneral Appearance: somewhat cachecticRespiratory, Auscultation: clear to auscultation bilaterally; no rales, rhonchi, or wheezesRespiratory, Effort: no intercostal retractions or use of accessory musclesCardiovascular, Auscultation: S1, S2 audible; no murmur, rub, or gallop; RRRAbdomen: 2 stomas, abd soft, +BS X 4Gait & Station: normalOrientation: oriented to time, place, and personMood & Affect: no depression, anxiety, or agitationJudgment & Insight: intactCare Management Plan Transitions of CareInboundRate Your HealthIn general, would you say your health is? FairAssessment & Plan Problems:Added: H/O: colostomy (ICD- V44.3) (XUF17-Z23.3)Malignant neoplasm of ascending colon (ICD10- C18.2)Assessment not SavedOpioid abuse with other opioid-induced disorder (ICD1 0-F11.188): ] Assess ment & Plan Orders:Adult - Ofc Vst, EST, Level III [[id number]] Name Value Range Interpretation Code Description Data Amarilis rce(s) Supporting Document(s) ID Date Data Source [id number] 06/03/2019 04:21:19 PM EST [facility] Name Value Range Interpretation Code Description Data Amarilis rce(s) Supporting Document(s) Discharge Summary [facility] ZMNKWd3iFcJQXaYo27/EKZbaABUwz4ShMZejCOp4VKcrGFOuU1AqVTV5oU9eBGZ1RFxQSjXqWnTfIKR9 lbm [file] E+DQogICAgICAgICAgICAgICAgICAgICAgICAgICAgICAgICAgICAgICAgICAgICAgICAgICAgICAgIC AgICAgICAgICAgICAgICAgICAgICAgICAgICAgICAgICAgICAgICAgICAgDQogICAgICAgICAgICAgIC AgICAgICAgICAgICAgICAgICAgICAgICAgICAgICAg ICAgICAgICAgICAgICAgICAgICAgICAgICAgICAgICAgICAgICAgICAgICAgICAgICAgICAgDQogICAg ICAgICAgICAgICAgICAgICAgICAgICAgICAgICAgICAgICAgICAgICAgICAgICAgICAgICAgICAgICAg ICAgICAgICAgICAgICAgICAgICAgICAgICAgICAgIC AgICAgDQogICAgICAgICAgICAgICAgICAgICAgICAgICAgICAgICAgICAgICAgICAgICAgICAgICAgIC AgICAgICAgICAgICAgICAgICAgICAgICAgICAgICAgICAgICAgICAgICAgICAgDQogICAgICAgICAgIC AgICAgICAgICAgICAgICAgICAgICAgICAgICAgICAg ICAgICAgICAgICAgICAgICAgICAgICAgICAgICAgICAgICAgICAgICAgICAgICAgICAgICAgICAgDQog ICAgICAgICAgICAgICAgICAgICAgICAgICAgICAgICAgICAgICAgICAgICAgICAgICAgICAgICAgICAg ICAgICAgICAgICAgICAgICAgICAgICAgICAgICAgIC AgICAgICAgDQogICAgICAgICAgICAgICAgICAgICAgICAgICAgICAgICAgICAgICAgICAgICAgICAgIC AgICAgICAgICAgICAgICAgICAgICAgICAgICAgICAgICAgICAgICAgICAgICAgICAgDQogICAgICAgIC AgICAgICAgICAgICAgICAgICAgICAgICAgICAgICAg ICAgICAgICAgICAgICAgICAgICAgICAgICAgICAgICAgICAgICAgICAgICAgICAgICAgICAgICAgICAg DQogICAgICAgICAgICAgICAgICAgICAgICAgICAgICAgICAgICAgICAgICAgICAgICAgICAgICAgICAg ICAgICAgICAgICAgICAgICAgICAgICAgICAgICAgIC AgICAgICAgICAgDQogICAgICAgICAgICAgICAgICAgICAgICAgICAgICAgICAgICAgICAgICAgICAgIC PhOIGzYEGsKJPtRCQsBWHjHXFeMWQkIZTtVMDnZBXvLSPvVFIfJTQnTZCqALAeBDDbFJUcYZi8A9ytAA ZeIMMqVJ9cOMm3Lf3+WApDSrGnKMA4enBlmU3KVR2e w2VsJBhrBPDjf6NgDJm0TV0HMTCfYMylNG0KYOyqgz6ZEWIbIYDktGARs0ybPrGkEAJ8XACsShbiEG7Z DISdO8fwhnRxIYDqBMYRTTbxNPJYXCgiTTGBBBNhWSKnUkJjPWmzSL7Fn3ZfyHB7BOx+Pn1PUB1ka5Vc ETfpYbEuSP7tmn9DAPkVEcWrN4UjqoK8WTI3KDRbGm 8SLVMuWKVkiMMjZeLxDRPJLpUfN1KaoS01QLTWUi2+YKqooiGwCjoIWoY0AXQvr0XpJFb4VO9KEJWkKC u3tPQdERclN3xwrhbhRLN3vQ8zjlqlSwilQRycRJ2rTWUHeZciYKO1SNM5ACmtTEWuJCNgPD9nTs3tSJ EgQQL0BlF6QLOXDC6UJMBeXYUatGKeETTbKHNJBO5S KHwwSZC2HEZlvsCezRZtTZqxFK6TBSIjqiAlOyEfGSCFFXj+Jv2OJH8bd7UcGTzzSGHxZI1plz7KOErR CzQbV5E9wFRcJ4F7VGlrQs0KDJOqWIYuQxCeZEHACZkbWY8ZXA8xkvC5CL8OsIBgNQZvJGHvzVIsOWh7 Q02pjJTeHThbMP5DNGF+Naomy+Cl4WVNKgMAPxXGVfBx CjJEMPVeEdT1GjG1AYu2YwP3QzOW81fXmrvgJoMHzrGC1XGK6xZOKeQVKKVV5GrUNboV7drlFrTtYtVD IPOrFsL78jtELiWLPpGBG7RPGmFd8WUPVtV9GnqdYyaEvyghBgLVIzIWAYQP9DWLohirPvyUGtpZisUJ 44aMefOB4KOt0JOjLxFF7nal9JwMPsIx2ITAXcBL9D QTJyUBLxLVXfAXN3DMUxPzEoKChwVMCiAWEaIRD5ZDExGXTpWQ2ATeHaJYUhSBi6SCVjSOLeRYRmzm1V MGPlALMlTKXeGWQhSJAmYPBiBPztFDGyGYEsJLE1DAQrAWIyTB8XJhIsXVKvZVQfCPCxEVVvCVOifr6I HZZqARBkPXX9VEQyMBXkIHEvFVcvOXWrAKC3IAQ0NA SxLIPbFC1ERnYoVANgYBlaDnMlGBClPCGzob4ODETuUWYwSDBeMDAoKEHyCTCbYYbjSMDjOAOxEEM0CX NzAOKfGP3PRdKhTQQdBSEdFkftOWEuFMHhex8IWTVoBAPtSbS9OUMuIBWhZZLoWHrrDXHiTNI0WDE3MQ HjSXAcRO8SAgGcEDIhJNU1TVAbNENyMSPegc7SPDFq QHRxEKa8RSUfYQViYFRsROsfJZHnZVG7MvA2NBMdFVVwJF9NRbUrYSAlDZN3WDFtBBPfFXKleh1XEZTl SMSaFmZaFEJgFPLePXKoXSxeAIXaTMZ8UPr8SIKjQQXhAH7IUxTcMGYfDGraPXViEZJhUCDwsa1YORYz FVPyItA8UHTaYOSnMSRpOCcqHMGlOSY2AOW7TSXvSY EtKK6CFkJjHZBfPQv9VoeuDFGmUQAbcq1LBASiMAQhBIxnMAYzTKGqDYXoYExaZINgTAI0RlO7NJInJL FqOA1XOaRqBZQoTqF5ZdHjTHAoNKJqvk0YNGTeUXMdSXb6UeFwFRIoJTKyXNxoFOMjQLYlNYT6JGLqXM TbIZ1BDfAaAKvtPHEKKbl0GIhrI0v9CKAyUE2DM4Bb a2PhEgciWJSFJGetUK6cirNvRBVyOf1SR2bYDvibVsEqNAEsENbvCXN3SCBdI8YlRiE5YOcnNFXdH1Ks CA6wJAJmVJHmPPBzDVHpSjZlXYXjOmUbAis8C2OyCVLdXxT6BdKtFM5CRb5DQlX6RDL3fFVqKu6BHhCp ZEmNGeJoRL0OENi= ID Date Data Source [id number] 06/02/2019 10:47:14 AM EST [facility] Name Value Range Interpretation Code Description Data Amarilis rce(s) Supporting Document(s) Consultation [facility] YJJACf0aMpZIGxWj94/ZTSbdMGLvs1ThLVejHAb6JLgqFYPmN6VyKSU2gN9uNLE8CCmESyPrVmXjYIX1 lbm AbUqfDHhXbJLJzWhvJFhCsPMvdPvieqUWwRR3NoGA2NHKeN11qMXSkPHMsK1MoOBVzLHd+Kl7OLRQcjG XwYR9TCxvP1Rxti5j5AP8dVF2PGgvlz43upisLTYT27RDXp50oRX1iOfJWaMjQAtw4OWlNZa639SHisO tyvbvhwpWvoZI9C9F4ePdLH0TcUsL//6pBYoMgUMX/ 1udIdgilRg85R8vchIXXv/JF0bsTUBEADMZF/MjZYctcdweeu4DPjzwdn7kuqhsbeLH4pAF33Mc08IG3 zfUSUDSlc9vCAnMKsh/36glyFLktvtG0/6eq5nbd2uA6ainrBC0GzO2Se5oucUVuerEsCmMpmfGAzQ2s FhftAzr4XgecucFfWKsw9X9v5ln7yC0vijRBjdxwG1 Upyz/mWgSOGfnuN4K6pj8DRkZL7hH5w4CZrBWJw4Ico3/PtEycpF7Vn8ggomu0d4AcTmfbcPq+KAxn2Z 9lEQZxYbygToxqYm/SB6xopIDeTeMe8y5T7Da8gq5Ea2MetxZwnC72Ro+vhUb8yalBdMAjyMk/cSQ3Fc /xA6JNFuNTKECKi4/ywx7vAJ3llbbtU6cYB4BlqsuI eR19Q1KqFdutSX6RWVjVhvbS7EwmzfblFQHSYY9c89uVv7VqshkVxgwSCIc5irsGyzbLcDs6r12Znasv sDunZz6kXblz8pIpIzQ8DO8/kRj5HovMZxdVSy22/aaCwB9I2ryqS7qYgH2bFb0WeNQxXS8gxWdOtP7p U79U10V6eDy74wTuhn7i2PZ89nLNY7oUN7SA/Cd10Y [file] ICAgICAgICAgICAgICAgICAgICAgICAgICAgICAgICAgICAgICAgICAgICAgICAgICAgICAgICAgICAg ICAgICANCiAgICAgICAgICAgICAgICAgICAgICAgIC AgICAgICAgICAgICAgICAgICAgICAgICAgICAgICAgICAgICAgICAgICAgICAgICAgICAgICAgICAgIC AgICAgICAgICAgICAgICANCiAgICAgICAgICAgICAgICAgICAgICAgICAgICAgICAgICAgICAgICAgIC AgICAgICAgICAgICAgICAgICAgICAgICAgICAgICAg ICAgICAgICAgICAgICAgICAgICAgICAgICANCiAgICAgICAgICAgICAgICAgICAgICAgICAgICAgICAg ICAgICAgICAgICAgICAgICAgICAgICAgICAgICAgICAgICAgICAgICAgICAgICAgICAgICAgICAgICAg ICAgICAgICANCiAgICAgICAgICAgICAgICAgICAgIC AgICAgICAgICAgICAgICAgICAgICAgICAgICAgICAgICAgICAgICAgICAgICAgICAgICAgICAgICAgIC AgICAgICAgICAgICAgICAgICANCiAgICAgICAgICAgICAgICAgICAgICAgICAgICAgICAgICAgICAgIC AgICAgICAgICAgICAgICAgICAgICAgICAgICAgICAg ICAgICAgICAgICAgICAgICAgICAgICAgICAgICANCiAgICAgICAgICAgICAgICAgICAgICAgICAgICAg ICAgICAgICAgICAgICAgICAgICAgICAgICAgICAgICAgICAgICAgICAgICAgICAgICAgICAgICAgICAg ICAgICAgICAgICANCiAgICAgICAgICAgICAgICAgIC AgICAgICAgICAgICAgICAgICAgICAgICAgICAgICAgICAgICAgICAgICAgICAgICAgICAgICAgICAgIC AgICAgICAgICAgICAgICAgICAgICANCiAgICAgICAgICAgICAgICAgICAgICAgICAgICAgICAgICAgIC AgICAgICAgICAgICAgICAgICAgICAgICAgICAgICAg ICAgICAgICAgICAgICAgICAgICAgICAgICAgICAgICANCiAgICAgICAgICAgICAgICAgICAgICAgICAg ICAgICAgICAgICAgICAgICAgICAgICAgICAgICAgICAgICAgICAgICAgICAgICAgICAgICAgICAgICAg ICAgICAgICAgICAgICANCjw/dUQbM5sxgBOblsP5Y6 doCi8IHh2YOX0sy1LpGEVcWNgdoxNlFgoTVqOiMJLxVywANmq3GGicHA8McXJcW9WsO4UvTKkzHE9UHS LgPXAysBHcMPWkXXMaOrI8IOJdSAhzIG8NdEThDKhtTOGmWXXgAtZxIWLuYO6UVIEhG794abRyGh6UMw 3YHkImGO5fro3LDWzkKKMmRuuOJuj4HCncOW1KzUBk gNLuXBVhAGCDEvBhF0err5PbJuXwWCKOURduMU1Jh4CdlKMtDMa+Rx7IIA3vx0SsPRvvUUInQK9ofd9H IXgEYjKcI5TskVkhPXEfjrL7cLTdCPW7GVM2JMRjFCCyAULuiB1mtjBxMR1ZDxFoVIEaRG5tDh4oZYLr PES4DhF3YVLDTE7CIOShLGQasMHbKRQyJPTQCL2OUN zjGEU1FJGoiaFnbBSkGNwcSD3POAMjkbNoRQcyCEDASJu+Ce6PAX2gf5BuPYryGNWeOF4oay1XEDpQDy EaX4Z3nHGvH4A3BNstDb2ODAGhVGKxRKczUTUQZFyvDG2PUT5bgjV2GW3BhOCeMUAcBTCwdDAmLQt9R1 8deATgOPakDL4YMIB+Naomy+Di7KECPgDDHcSEJdIeZu WSISHeLfY3VpL3RWm7ZwH2LjNZ92iKgbkcPsEJtmSJ0WCU7bFUQsJATAHM6VlXKjoQ5aalUaAQVkAMCY QuWvX50tgUGoEVPrQBU1OJDnYe2SNSRwT1DwipJenVhdreNySWUgWGGWIB7OWWrxgfOdoKKrkUgmRL23 uAtdBG9DRl3DIzVhAC4rxu8VoNGcAf6RDVTyOt0JIJ KlKYSdQKCqAGV0NPQzFkYnERoxFCBmFVDiTLQ1KQUjTWLyBS6DKbPcEWSuSYG6DShuVSNhDVSndd1QZP KgFZAdBiG9TXTrBTNbJONbLEeyINUcOERnUIN0DTKfYINxWF8EWvKvTJZxTRJbMJdlISFfXLEukr9ZMA HoMOTpVaC7HTQaGNRuTNEbFNpiOKIyTXJ2IpA7AAMd QOMaJJ0OIkWsICXzODE3HLBwBJHxWYWaor8PMFWhJUIrZfL3XQFbQAZpKJKcGZlqODTzFAJ2NyI1CEAs ZTYwOZ0HMhHsCELzMJl8KFAnVXShTPTrye7XDYLzXUQsSNspEYUzXXRxIPPmTAscEBQiNPS4DRS6BHWz OOTtWC8KQxEoZEZzKEswRMXuXAIdOWMovy5XUTDzUL QpGEP9WGApNKCtRKDlIOodXOOmWPLtBsEgSJWyUYUoNW9KQhUlZRDfMRA8UuZrMFGbAOZahv0NWBTeMK OuOEz5GXFfSQHoFGZnMGfoSMZmZTNrIGIrMNQmHDLjRI7YRqSrSZXaFBS2GyUkJEEjSLYdyb1YTWAsHS BzEtEtSARzTUQrUGZmXPd3jnAeeUFnPSe9UX1PL3Ci loVvZlNCAe2Hw087BMWbERCkPp0UH8hnGm0eIIBjCUBAZh3WHGo1F2GoMawpBZUlPmVsEPP1WkA0RbZt YmCqVrl5UZH2GfD+PXg6MLX6MKT4GCLmDYI1OPhxBHYjWvFlXFIoAZqbMmBpEt3dIPVNFt2+DQpzdGFy pMwoAOQKHbAjDPF6KNibGIYUIv6Q ID Date Data Source [id number] 06/02/2019 10:11:53 AM EST [facility] Name Value Range Interpretation Code Description Data Amarilis rce(s) Supporting Document(s) ED Provider Note [facility] IYESTj4nJxKZUlSs93/WYLldEVIkh6UiXLwbUVz7ICusSFMvH3OrYPY8dH1kZCH1CGbNXiBkOzGsPHD9 lbm [file] 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 Ultrasound demonstrates the abscess collection in the left iliac this muscle in the iliac fossa. Direct ultrasound guidance was used, after local anesthetic injection with 2% lidocaine, for single step boxm-dhd-muyxoa technique placement of a 12 [place] resolve pigtail drainage catheter into this collection which yielded bloody frankly purulent material with foul odor, and a sample was collected and sent for Gram stain and culture. The drain was secured in place with silk suture and adhesive skin anchoring device. Dressing was placed. Drain was attached to Aurora suction bag.The patient tolerated the procedure well without immediate complication.IMPRESSION: Successful and uncomplicated ultrasound-guided left pelvic abscess 12 [place] drain placement with sample sent.This document has been electronically signed by Gio Valles MD on 06/02/2019 9:22 AM Name Value Range Interpretation Code Description Data Amarilis rce(s) Supporting Document(s) ID Date Data Source [id number] 06/02/2019 08:38:17 AM [facility] Name Value Range Interpretation Code Description Data Amarilis rce(s) Supporting Document(s) [facility] TGLEXq2sGrMCXkWy25/TRQjrSQUhq7FjCYcqLBy7XIidGYDlA5IgVSD3gT0mISG7OPiLOtMlXkPbETY3 lbm [file] bsQFVSBqn7XWwIJwYrNH6WTNo= ID Date Data Source [id number] 06/02/2019 09:54:50 AM EST [facility] XXX-Imp : Gram Stn XXX : 2W BC'S Seen.2Gram-positive coccusin nxqgu3Uhwi-mleaakfm bacillus (organism)Microorganism XXX Cult : 4Escherichia coli (organism)Organism of questionable significance. No further workup df3Mrzeiwcxwwokt anginosus Name Value Range Interpretation Code Description Data Amarilis rce(s) Supporting Document(s) ID Date Data Source [id number] 06/01/2019 06:20:06 AM [facility] Name Value Range Interpretation Code Description Data Amarilis rce(s) Supporting Document(s) Leukocytes [#/volume] in Blood by Automated count 13.7 10*3/uL 4-10 [facility] Erythrocytes [#/volume] in Blood by Automated count 3.45 10*6/uL 4.6- 6.1 [facility] Hemoglobin [Mass/volume] in Blood 10.3 g/dL 13.5-18 [facility] Hematocrit [Volume Fraction] of Blood by Automated count 30.6 % 4 1-53 [facility] Erythrocyte mean corpuscular volume [Entitic volume] by Auto mated count 88.8 fL 80-96 [facility] Erythrocyte mean corpuscular hemoglobin [Entitic mass] by Automated count 29.8 pg 27-33 [facility] Erythrocyte mean corpuscular hemoglobin concentration [Mass/volume] by Automated count 33.5 g/dL 32.0-[facility] distribution width [Ratio] by Automated count 14.2 % 11.5-14.5 [facility] Platelets [#/volume] in Blood by Automated count 969 10*3/uL 150-400 [facility] ID Date Data Source [id number] 06/01/2019 07:04:07 AM [facility] Name Value Range Interpretation Code Description Data Amarilis rce(s) Supporting Document(s) Bicarbonate [Moles/volume] in Serum 23 mmol/L 22-29 [facility] Chloride [Moles/volume] in Serum or Plasma 102 mmol/L 98-107 [facility] Creatinine [Mass/volume] in Serum or Plasma 0.60 mg/dL 0.70-1.20 [facility] Glucose [Mass/volume] in Serum or Plasma 88 mg/dL 70-140 [facility] Potassium [Moles/volume] in Serum or Plasma 4.0 mmol/L 3.4-5.1 [facility] Sodium [Moles/volume] in Serum or Plasma 140 mmol/L 136-145 [facility] Urea nitrogen [Mass/volume] in Serum or Plasma 9 mg/dL 6-20 [facility] Anion gap 3 in Serum or Plasma 15 mmol/L 8-15 [facility] Osmolality of Serum or Plasma by calculation 288 mosm/kg 275-300 [facility] Creatinine/Urea nitrogen [Mass Ratio] in Serum or Plasma 15 [facility] Calcium [Mass/volume] in Serum or Plasma 8.3 mg/dL 8.6-10.0 [facility] Glomerular filtration rate/1.73 sq M pre dicted among non-blacks [Volume Rate/Area] in Serum or Plasma by Creatinine-based formula (MDRD) >6 0 [facility] Glomerular filtration rate/1.73 sq M pre dicted among blacks [Volume Rate/Area] in Serum or Plasma by Creatinine-based formula (MDRD) >60 [facility] ID Date Data Source [id number] 06/01/2019 07:04:07 AM [facility] Name Value Range Interpretation Code Description Data Amarilis rce(s) Supporting Document(s) Magnesium [Mass/volume] in Serum or Plasma 1.8 mg/dL 1.6-2.6 [facility] ID Date Data Source [id number] 06/01/2019 07:04:07 AM [facility] Name Value Range Interpretation Code Description Data Amarilis rce(s) Supporting Document(s) Phosphate [Mass/volume] in Serum or Plasma 2.8 mg/dL 2.5-4.5 [facility] ID Date Data Source [id number] 06/01/2019 12:28:17 AM [facility] CT ABDOMEN PELVIS WITH CONTRAST [id number] AL RESULTInterpreted by:Russ Sanchez, MDPROCEDURE INFORMATION: Exam: CT Abdomen And Pelvis With Contrast Exam date and time: 05/31/2019 11:04 PM Age: 44 years old Clinical indication: Peritoneal abscess; Other: Pelvic; Additional info: Eval pelvic abscess. Please give rectal contrast TECHNIQUE: Imaging protocol: Computed tomography of the abdomen and pelvis with intravenous contrast. Radiation optimization: All CT scans at this facility use at least one of these dose optimization techniques: automated exposure control; mA and/or kV adjustment per patient size (includes targeted exams where dose is matched to clinical indication); or iterative reconstruction. Contrast material: OMNI 300; Contrast volume: 100 ml; Contrast route: IV; Other contrast: Route: Rectal; COMPARISON: No relevant prior studies available. FINDINGS: Tubes, catheters and devices: In situ balloon tip rectal catheter. Lungs: The lung bases are unremarkable with minimal dependent changes. Liver: The liver demonstrates normal contour and configuration. Gallbladder and bile ducts: The gallbladder demonstrates normal contour and configuration without stones or evidence of inflammation. The intrahepatic and extrahepatic bile ducts are normal in contour. Pancreas: The pancreas demonstrates normal contour and configuration. The pancreatic duct is normal. Spleen: The spleen demonstrates normal contour and configuration. Adrenals: The adrenal glands demonstrate normal contour and configuration bilaterally. Kidneys and ureters: The kidneys are nearly symmetric in size with normal contour and configuration. The collecting systems are normal. There are no significant renal calculi. Stomach and bowel: The colon and small bowel demonstrate normal contour and configuration. The stomach is decompressed. Appendix: There is no acute right lower quadrant inflammation or evidence of acute appendicitis. Intraperitoneal space: Left iliac fossa serpiginous rim enhancing fluid collection with air-flui d level measures, 4.3 x 5.3 x 6.4 cm consistent with left pelvic abscess. There is free fluid in the abdomen and pelvis. Retroperitoneal space: No significant retroperitoneal fluid. Vasculature: There is calcified plaque in the abdominal aorta and branch vessels. The vena cava is unremarkable. The mesenteric artery and veins demonstrates normal enhancement, contour, configuration and orientation. Lymph nodes: There are no abnormally enlarged retroperitoneal lymph nodes or masses. There are no abnormally enlarged mesenteric lymph nodes or masses. There are no significantly enlarged inguinal region lymph nodes or masses. Bladder: The urinary bladder is decompressed. Reproductive: Unremarkable as visualized. Bones/joints: The skeletal structures demonstrate normal contour and configuration without significant lytic or blastic change. Soft tissues: Unremarkable. IMPRESSION: 1. Abdominal aortic and branch vessel peripheral artery disease. 2. Left iliac fossa serpiginous rim enhancing fluid collection with air-fluid level measures, 4.3 x 5.3 x 6.4 cm consistent with left pelvic abscess. 3. Ascites. 4. In situ balloon tip rectal catheter. THIS DOCUMENT HAS BEEN ELECTRONICALLY SIGNED BY RUSS SANCHEZ MDThis document has been electronically signed by Russ Sanchez MD on 06/01/2019 12:28 AM Name Value Range Interpretation Code Description Data Amarilis rce(s) Supporting Document(s) ID Date Data Source [id number] 05/31/2019 09:34:12 PM [facility] Name Value Range Interpretation Code Description Data Amarilis rce(s) Supporting Document(s) [facility] GTXLGt4pTzOVDdRlp4ViQnLsTFSbJM4iyvz9L1M9yCCpD4IxrMDsa5dlT5LgS4FgWHWfVSFOLI5UvQVx jb2 [file] 34RwonMChRMVzlDu+0RDm4m103AXX9mVE1Liku+blower room attendant 0I/+NMZ6v/dAFAljWo7o/YwOZWI1UNRII4037xiIF1VyHkw7isetIGCDYLUCO9nk7IV0I46aye6qhjrk UR5wIHnp4n7eh2840EwtPSSucMI4KVXsO7rpFcySF82SWcvfDj6g7ewok+imeDvhG83WKXCgsQE0mHvL BYDXzZCmU7ptzZV4D0yKLi3ziEUB8fTtHPRdC/qBXx f5jKQMG9D5652stowMWIJ7NVgUWnnB4esBLvVObVa6DIZw5JFZEABgehtsi10pdgaZ7buHGzXiwVZeYU gKn1uVgR352yv/u+phf6mskbeu+ZcEVNVqeMmjf941cM655UtVJixWLBgeKMI3AtF8+ZPUk4610qJPYM 80vXciZTpfXJsErwTp0p/wmgCT5uvMgBDmUPxziQtY gXDSnXOXN2ySSg176z15bmdJVqZQ1R2We83lsSkTcBYclbGwjy847BjSC+Q0JfYw7nM/ELI2jfbgAaO7 2T9Q031d2irdl9lTDN0USzFgWRLMQX5luHqfg8/N6L59C4zs0+baLcdx+LUe77S+gcinpOOFHnXZT7/n O6d3ZkQ4uPE17IZVmXjcPnM1pNqhXZWNRyxgPdDnWN 4AMH1IGpo7Vp+59nuUFrOvr9JaEZiLWZxZJPZ0Rszey0xobGawsLcd+9BLliLWVo3y7xFc690t6VU3x6 g4KammninGlkEhnopwJdpted77H7UsF3PvaFH39wCHrKtpOgk/O+szn1jJ/ypCaK9ArB/DIS1n7hL8nm Simon+ttP1oK2E9fvBfWTkN8SPz/SNLjfNv9c8p4Ty22 [file] CRISTY+T8XuYYLxo8WU8HaQaLjMXjMLTROoWNgyGnpdvu3oo9x3PIt4+cvdKM7JvgyivD/guotVs9a0r4Q0 lB4Md6de9tnCX/La7qjoMUtTrNZQrgsKIKM5UN4kA5 mQeRRdxqcdH6scsLbLVkuecDZZNwadavJUFFYyRYup2gerJgYr6yLqGTPjPs7axbAneWPTRAzVRVV6db mrWGU3ib+5aiB8CPq070IMZZXWvIzI9lf656U+k3Lft/j3h8VNSn8Ce3vDGVbaLYniAT8tXElzlYJykv D0bKWk4HQIETd6ScoB68F1C/IzFucM5wbTP+IH0ekT +9WonSPShS6nZSRWPwQnBFQuuahgM5arVZFpZ5dhH0HyGeijGlyOzRLXDscLB2WfnHKD/NV5G5kMSQw8 RcMlELEbOIdyMTRoovAeHhrsl4gGtN9anfBxAA6r+cSYxAeT+ZU4om0k+H4QQr6B5aPHpgoLSoUOPG7j D/KBf0R43f/soD+NN8YBCpeI3mnMJ+Q4hpL+2bnvbz 2IH/AbyJKiYIu8DOmzXmfmhLOLrhtMiSHWyvin+Wfnvm/pUeDLiATVCpd578CuicmMbty3yHk6YNNkq9 EOUrCeYAsQQ+h878xh1PK6VW9FPjznztEWfqthkxI4bRYT0hYus1bYYVf86yNpms3148OgzxNGyw8O5B 4lndz2C5RS2XAryFk5+RuKK/X9k/gmp9wLdn+hKWxl svp programmatic tv/n8/iWXvCE7Zo3o29Nsm/4Pf/+kdadrj00epjDL8I9//aewckg64yT/fV/uKk8iid/lQccrjzz20Gf 8+05b6Vgrh5Ih/ErJ1R+/5Wf/Yz2/ODbSlV7wqcvZ3E0N9oM0d5/nb7L/UQ7x0sZch3x/1d4l4zyJ/wn 70hOaT/0Hmovb8yVa4cdB6//lIsAVQ8gwl43P0+f0Z 5Ae5a8/rCmdx3SH83uU+3mcC51bdidMSkvt0I6jbcqJ35Gah2Mraig+60Bdn/9vdF7af0CwA/wIuo6xG 4sq3+rn3+/L6JbcC9OA/9+73pe/TsePf9+H/r9J+/DIl1aBqr/d2aLykq/fX+g/Hnsp6B/f5h///6D/L ttP8S/Jph/D2W3c3dqdjfltg/7miH5boeD61e/baf9 zV106eAm8pfl0B84Smh4w13l42sHqQ9M0m/i49VmWiatywDNFW4+bOnop+Vjhy0f+1bfrKrDZmhJ3khm 0p75hgD8LQ4J7bAQA8Zsb6f/30pM3/du46vQX9q/BzVCHj7ak6fNRgX84UN90jbzVAIqf5ylPQttScn5 ljdkLx32Zkie2tbF0hyDJW5GecO0wILtz06X/FUMtG vw4D3q341r2sVKFzS1x/N+T0c/JfP3vXCY8Y5sUr+01fc3s59wj4Zkaz7Jg1z44mL6SNud06brt3tn6N m6cWnIGeu2nnf1PhLGI9lPtKem04Y0B/KOivIrfod/Hg2/C15OfAsaDNG6zAI/DdjzWPJmP/9+L+t5Ps wFjrdIw2tO5/Nx4Jmyf9S06uw/kmIFMub1Mbizrsd0 wi1Q4mS9UYp2zMvcE4Lj556mj0GuFzj0f0kg3/DdL2qjh42Xzm+7XralklRVtn2c/HHb/5cxz72W9saG 9s5rW7mvVe5Yevmbthe/hiwccrk0BF50G4766CCuB8na2ajNLO1+M/D+aBtbljK0VM2itFTRsXilXn9l 7w6ROcsfkm2vjvThUajsg78AI50rf8+/Z+GronLaay o0ynh5A2/r82Aqx1DD7o2z+Gq35/TvSg9/n+mlW1b8ifVS+Cz9L00dycxGu3Gf75hTIszmCLl48r+s38 grE5GAnCKQqwnghZCm8xzjj/EBY90f9Tf0qso8pEwN6x47/fpZHfR8eak9deCTR+rPWuD30NwKXkJGEB 9WDngoardSwN/dj0w3fPhFpTpZ50/K/15uYfl9g1/y cpQyisr1SC8ekeuw7ngXp/CRnk6x94fyKV//vldTUZu626rh/MPcVFX072NV0B9ahTR+t88ewFJQ2ia4 7k580ZZdctBHdAbvbGVYPve+Tgx84GWbCVx1esucVQeu8Y9G231kF60g+H0cv/HDV3/j7IsSW51zXhs9 04jdfV4xPF/I8dZFw5qtyjRZB80qvSzCz0vHs48k1e 5D7//J+zcfK+T46SmbX5Ocxar+O/JvLl3G7Y800RTEL01YlIKjzZ9xppU3sE07cAV5e66x+lfvoH+Fr9 m5yuqKvbJcI65ygafeqNv/LXzlcha+2rFK0AmKV58LI+9ftmax9gl5g8H0W30G6pRV3/Wus8Selcb32m Pklf9c+Zj67rlmQQ8PBmwNs+Ac2Ani0UEsLbbFJ6Cz q/5Yqgf5kyCVwmh5ApaZzqvidaGzDI/CV+1N1t5+EwrdsEfgyeZywGFaUV77+rsmq041zyZensmj6Vb0 csVadkYx473YevJvJy5h+xe+jk3SBmPs+Go/1+X6Eg4qf2XbZSahtycT8SBnsFDf9EVJfnz7ozKO0LFt q/0O/AKOj65DqnFt2eesLypO0P1KFzQ+auGr/W05el 71sh8gB3lKxdcRUaZ6cM//vPDVbg/6d/bj/xe+7z8wG69S+Yco6Nlk/cy5879bVam7uqGEvRmFMgNe/7 3pR3eT82g/K+va5f7vb+t/7QtbaguYfuRcVxat68f48nyb8a5g7vWqjEdR0zOrr2s/cijraLD8UvP3f1 hN4zi5oMGW+Tu99PC3kMPLRn41HwWXjkSZmU7gHKfq SQ+jdP4OyB/U/sH073ayum6/2braj2vwiQ7Sfg+u6q42Dt/az+28M08/Ert4Xo35aezq8dKs9p/AV0X4 6nmzqd/fy+lO0YhWX43d4jJ/t/NtoJw4/u1mpez6RsWionF1pMFBLE8uETKi2JyWF2S1aif8UgmG+Erl C18p+Vr4yt/d625B2eoy03UET83I/6y0aY/TInylBP PYe0mMav885oaM9Bmdc72TvplmsGxstEqAqdwwL+xhMc9KqR+WP1+K2giUA3Q6n1nBjLFEvY5Dp/CV5F n8hxldY96JQ+1n9G+ZgOSch9O/6/DUDzl9ZL/g/XHsU/Lx0LTPE2fpLY9kCvBCgn4vankG4/Vab0VdgU UmvUrsAPm475BKU5sIej/ha5VzsB245WKPuC3zuMIb G/pX+EpytRPPWWnQ7/vz6Ked+HjnMP57ol/md8Zgat+X0Svn6dfHr2YDSZnqijh08v6UR/4txld+Pv0l fCU7D/Yh5OIP8we4LP3TfP5Zoz/kf+ET04nfJ7cIs54Af7YrEK+LnoxPa6T3KvEwiZB6iJ/r0UOv+H2t E2Xipj57GdbUAoR+1km0pPwOH2Xt5TZ1+xyA6QZuA+ BptVw0BmpjOi+Xcda/RfErXZih+MB6xDbZdTtvU5y2bMsp0X+QI9jjszbiFla/2mEML4Et7y4R5Mu7gd DKer5WzgpkOb3z9I+LnouQ53f/rjTm/w1yqeykY/i49UJ64j0MxTmnaZLS+JvSU1j4un+dv1wz05na5u 2c8FcT/gxxLrto0o6/tH9opZV9Wlt+8r0qC1/ZTha+ zp2ecPUk5YrMlf/VX82NdyY63xfQYx+v/dTnrI+r9MXbwSa6sQUi7Ucw7Kid+R3LslDKnAoI8FVHmt0h ROs8U44J+3VE4OjFz34tNfM+oPL3vD/46PmUr/8KxKf9q8qPhqcIdn1N7KXB/sJXGpsrL/l9/6wHazrr kQe0AOydSe64oPMb9pwtEqffG2P93/INxslVSPz2Gz DrxXqhZ57QwuCkE2//4THNo7OB4YmSbuAv2VqzHBN0zpmIUyJ/4M6vseL2/Phlt3I5h1634gloE86hkq 67qamP4d5xYV/UfwteheJN5sJeIWb4+K/YfFp2l5p3Msq85vqTm3x66C+sxONtM+XjjPg3jrIVsc1a8x 5pa2Ulq9MLfp2NpfP0U8uw652Mr/N53iTuP9p1An/g xIw3zHZFrjlBPd7df90a+oeq+JUS4hS/sr4O3paBie3K80HVXpjQ2lgt+bnON3Z1SwcRxxwlv8dFouyo n8B2HpF2H1cKF0nrkImO+Bjg3ZNafdoz2ktskZZVfnuGP0N8/HMVvpJtC1/JloSv/H4+8WglqK5Fr9Xw 5nHC9z2+usXXkf4gfwZZn2gZ9mw9j1OgJIUGt1VZih svsUiKobt4S0fe72VBQiCRVEhUMz8Xtx+cdHvW+8T8n1EJpOt3Zmw97LfhALqud0zmBTuDb4hU/LPwVf Cs9PXiwcdClnn+Kh4AY5gpsTmrC+Df9a32i3h/UPm2Z3+p1iLgvVecKLZo5te9KuuMS4vmG/L7Pf2JGa 6n8c9Whm88a8F/sGJ/iIzF5nxjS7Dqaqsdniz+8rP2 B/XOwle+mkRa152NsbcNsV0i/pUq87xkIdv5/X31r+a4ha/272c/XKMKz18yZQOuAxzlgGpIE58m2MFi jt/Cowdjpqql30z2Kb4Zbs1wQysDSauYUmfFPqvJFt8EVhneO/rbJa/y55Uz9V9Quwrboft7hyW/VLU/ 6OdAe+Mvi423akv7Xzyuruu7JFIr1Bb58k5X/Ko9Z3 +/KX6l7B/Fr/z7seem+MLgEg7v/1x8A9w6xsxxZ0bU5VclI9I+qHZhAedWiwFCMrj2ObPbmvJz9diN+M jkMDn18ry3/znrnT63vb9ltR0685JS2nN+free5780wls3Ulc0iDd0nZBQw8/VdP5q5/a2ve/QtD+4n9 urE5y/fvkmpD1CQj5F0HbJj9k/QF480YweXF4vZxou n/jll8thN6f/NewPNsWvZA/39A041FdiKIRe/Xz0r/iV36/4/lfWUwOUJj3zxCiQfSOj0V1v+ewvrJzd t/9Z3lu0t4/PfkpT/GphqlbOfmgrCb+tc2Pmix2awfgBq0rP4vX7+qUc/8iZ1g3twnwqpu00Fa0a4/H6 76iKz8CQhiusy7NWyw3qwUjIum00S5+0ojIq5y7lzd /2V7BWOp/Yiy3cNdf6OXaqanpxZuuUP92fpy0Yh/DlA7x57A+udNy3/C38XkaKE/NvU/dZwCL5gXpkUk zRGsZvO/QKBhgRPnw3V/5v5Rwpqw6lc3VEk4/43k8yT0A1S/6jjo23Lv968yvq/Yzfz/5+0/kr2f/CV1 o7rKTb/RznPMNKufXcsTJuPT+3XGvDKdj4ckL+kn6E r4qfT7/o/JV/hsvxJNtDia6cFg2jRfx3z6nzmz8mw9tzqOG4R36xaN44pE5nWS/VhK9kY/5pH20mPvR3 kbgD0zH+Ly/+b/3Ec1o/+9Phi2jucmh1Bb1AL5NO+4NN+Eq66h2/t3WiKG7WF/b17ZYVYO2uufFd/NVO pz4yo1M/83G1b0U5PlsxDVl38AmRF1zpiN/bwPgdZz +lYX+dBXtkjp2P/Mitzy+Ktx9o/aOPsLTfErywV/VE97si7i/7ztKm0vZEsjhhUtoTnb1otTJ311ZWOxfE rs9reLp56zmZ0++Ko/cn4tCc1oMq//tvjvavUf1qf6bSUao+eyC79iQDVmjsfF+MNX/Crispin/1aabG/S82 +6Xq4oniSix1h2sp77PeU0+12Jc8/Bk/Vw8J4ljgDT r5K+My80YkVjiA4fMPrp5yStYNwbQsDjSpV3h9fX+tmqp83Wv+G6sg2kfS4e53k2KVIM+i4p8AdsmGhW sRXuwi89i6mO0+d3/pk8ideWaj5LCoSOLHk3Idd+lslwn30Xvx/5d+136/ypI1Ffy+UTQvGr/Ka/bl0J XykJTfhK3+ZvqoEjuO6tf/Vg5DP/Rj54I/H8Yoc2hb D8eI8J2DorIpfIpYC82OzlunZxak+h81f+xS66YueQH04VzZ1FqZ4R5Wg1fcKUWKwVKuZ3gmgH+Mrv5N BgeqKE6nHYp01h5cqd5hzpuAMnYADu5clEwQM9869bGr3ks2tjqGhUeWj35Nu5vsQI+Er2WY9/Dp1vdw QrwoDP7Sr43PRv0dYpra0gbzo3+85l0887ttgjFgrG 9az3Q/tLtzQcQ5J0+Qsri/Vtm+ODHLUqT3u9SV/R4oR8Cwyk7p+e5/tDqPHz6ufjs4ju5/[place]/tvklfP kFf4yr/X4w+Bw7BBOY92H36i85x3tp/CV/O5EH5ukvwn20E1+BpbJULo3UCK3yXBTQLM+OvhNts3iKlN iRPfWFmqu/1x4huh+EUHUkyBk380+43jOkGts46qsd UQRBOZrVy95QDC5pl0+0cR8M/TA6Piiv9boAUVHY6/8ZyVlPr+ih08c6bgm/yF6PBX/cy/Kx31/wong/B YMlO6B0m/3yiQe9R9+8hein/pK5TCaO5QS/mqc/ZTQ/jN9wPj1dryGv+oJoj8wCS8TBj9t/LMejHHWCz FO/vAZr65Sdb/28+cwmcSg0YbUqBwpnfTlikorLsi/ tZ/nK8bckOB6a00gjHU/Hzp/JZ+p/UHVO89+RfrsEluei1pp04k6tFHFRpyEoiPoqFm/O+L6nxX9tyHa sGpE051gR6/HpgesxC2E+auO+FX3+av+drVQ2hi+jPgSe904vX3Q3t5l/ZT+mMOMXnKlctnw5r5vO52/ 7P8bUsxzndTDo/w8UM5A+Sf+3IWvVn/4pCd9idqjy5 7OeaSezvzbEb/l3ar345Zizaw26kQwKS144HnlIa0Y/pF+qwsA6SPJLn0z8B4UI82p45I2C52PdZg5cd +y4Qusm6+MUY+tmOR5Iu/3VW4uxhOEr3kyCp7/7Pmc5+/CV+whmP10JqICjGo53pU14goFvi8mSSoR/R 75gdyh56eiA+e4w55Xp//afF/8bcoGbfa8j3vyipOD Fkeps+s+j/w4eGNEzRSInbu3AppOPx/8DP4yeAPAcl/0V13lotV9n0fOG2d014fu/t62IuQI2G3ASiJe /RLjIn38Oi2D7gU+gwrCa8u38ptgYgqy+Coh1k9Bk5XyD6UC/nk2kG8MPOtw37H2WhqBbuu4y7tox5kR FjTpQApp/qmrKUSbiwzOEDuqdxTevxD0OIS2AMjnyL MOpol2/vZ0ex06JQ1cx6Q35sJBkcTocDg+HhhdZpo8Jc3T63f11qWbzs9yhHvcM9BFYHTX93HmBjAv5D qKEkpVKmo3cJWF/HRQpix+2tbMusw05IMnrkmHNi68WRE83fEKFqB6B662LKZlhq3zZES/oH3d14Jb7n dszIuPih4u1/pxDIJPI5Ou8qs2NLuMuHz1irpO4eKG b3Q11ntdjnK/xNJBkaTrPo+/4amYErpVhu2CibgID3hBBci1+mMHb4SpPtQdv+e0h1dMOKCw93GN2IzF xkX2GWqEPgC44eVImHIuXXSBCFmGx2AKPvmR9CEEI9Lom8NC/ErpuMLn4IPYUB3OnmP3Euc35FRoPdhY B/WJM7hT6UwLSbWmjQt+fAO79ZPno0/UeEGLcX2wfO Zmg9+JhmO10WjXPVtF+I2MP0nK1geSQiTBFccfSW/M5Jx7zvc1ffdNrfZ1VDuNCFX/zP79VD4pdmOS3p Yss9ngEhQfdEavOx5WOPyEkdMghQ4k9lSOysbObI3pKp3+gqo0ZsM0Pd77sjTXrcIVDZMHLtdhJse/VÍCTOR [file] AwMDAgbiAKMDAwMDAwMDQwOSAwMDAwMCBuIAowMDAw ADKlMYKsJRIfBUZzPK6tWeFsWXHmRXY7RLAqQSLjCHPxopDOJDJaEBLfTZs0STImOQTpQECrKLemBZYf GJZvUOF7JGVgVBLlBM2fFlWfRIKgITL7IxUpTZPrYGSxzvHTFDYzNRWoZIQ7RzMhTIMuIYRlPJiaQUSa VTDyMLttOYEsDAItDA6iMuQfGJOzRMIlTAcsVMJxNZ MhwnJSMECrYPBhDWUaTrWeHMScJXPnRUtwCNExWUgnKTX8UYMpOCUlHT9vUyVnBIOwPWQ4TNsuZCJmUK QtvtHEXZMxFEFpYYpbULJgJSJyYOHsPSowPBVxWRPaHIP1ZXAqKRFcUG0oMvZkGLLcCDYgPQCzIqC6Lp NqYzFYyTQbtRxiydi3SPeqB2n5BPEyXVceWW9fztPj QKRwWqdkJx9wfZP5DOYqOewFYd6Px3VmviJ4ioVjGhg7TWCgSjWkQC5V ID Date Data Source [id number] 05/31/2019 07:54:38 PM [facility] Name Value Range Interpretation Code Description Data Amarilis rce(s) Supporting Document(s) Sodium [Moles/volume] in Blood 135 mmol/L 136-145 [facility] Potassium [Moles/volume] in Blood 3.9 mmol/L 3.4-5.1 [facility] Chloride [Moles/volume] in Blood 99 mmol/L 98-107 [facility] Carbon dioxide, total [Moles/volume] in Blood 28 mmol/L 22-29 [facility] Calcium.ionized [Moles/volume] in Blood 1.18 mmol/L 1.13-1.32 [facility] Glucose [Mass/volume] in Blood 84 mg/dL 70-140 [facility] Urea nitrogen [Mass/volume] in Blood 11 mg/dL 6-20 [facility] Creatinine [Mass/volume] in Blood 0.5 mg/dL 0.70-1.20 [facility] Hematocrit [Volume Fraction] of Blood 34 % 41-53 [facility] Hemoglobin [Mass/volume] in Blood by calculation 11.6 g/dL 13.5-18.0 [facility] ID Date Data Source [id number] 05/31/2019 07:54:38 PM [facility] Name Value Range Interpretation Code Description Data Amarilis rce(s) Supporting Document(s) pH of Venous blood 7.38 7.36-7.41 [facility] Carbon dioxide [Partial pressure] in Venous blood 46 mmHg 40-45 [facility] Oxygen [Partial pressure] in Venous blood 29 mmHg [facility] Base excess standard in Venous blood by calculation 2 mmol/L [facility] Oxygen saturation Calculated from oxygen partial pressure in Venous blood 54 % 60-85 [facility] Lactate [Moles/volume] in Venous blood 0.8 mmol/L 0.5-2.2 [facility] Bicarbonate [Moles/volume] in Venous blood 29 mmol/L [facility] ID Date Data Source [id number] 06/05/2019 10:35:48 AM [facility] Cmnt XXX-Imp : Microorganism XXX Cult : No growth (qualifier value) Name Value Range Interpretation Code Description Data Amarilis rce(s) Supporting Document(s) ID Date Data Source [id number] 06/05/2019 10:35:48 AM [facility] Cmnt XXX-Imp : Microorganism XXX Cult : No growth (qualifier value) Name Value Range Interpretation Code Description Data Amarilis rce(s) Supporting Document(s) ID Date Data Source [id number] 05/31/2019 07:19:33 PM [facility] Name Value Range Interpretation Code Description Data Amarilis rce(s) Supporting Document(s) Leukocytes [#/volume] in Blood by Automated count 13.6 10*3/uL 4-10 [facility] Erythrocytes [#/volume] in Blood by Automated count 3.46 10*6/uL 4.6- 6.1 [facility] Hemoglobin [Mass/volume] in Blood 10.2 g/dL 13.5-18 [facility] Hematocrit [Volume Fraction] of Blood by Automated count 31.1 % 4 1-53 [facility] Erythrocyte mean corpuscular volume [Entitic volume] by Auto mated count 89.9 fL 80-96 [facility] Erythrocyte mean corpuscular hemoglobin [Entitic mass] by Automated count 29.5 pg 27-33 [facility] Erythrocyte mean corpuscular hemoglobin concentration [Mass/volume] by Automated count 32.8 g/dL 32.0-36.0 [facility] Erythrocyte distribution width [Ratio] by Automated count 14.6 % 11.5-14.5 [facility] Platelets [#/volume] in Blood by Automated count 962 10*3/uL 150-400 [facility] Differential cell count method - Blood [facility] Neutrophils/100 leukocytes in Blood by Automated count 69 % [facility] Lymphocytes/100 leukocytes in Blood by Automated count 17 % [facility] Monocytes/100 leukocytes in Blood by Automated count 13 % [facility] Eosinophils/100 leukocytes in Blood by Automated count 0 % [facility] Basophils/100 leukocytes in Blood by Automated count 1 % [facility] Neutrophils [#/volume] in Blood by Automated count 9.35 10*3/uL 1.8-7 .0 [facility] Lymphocytes [#/volume] in Blood by Automated count 2.31 10*3/uL 1.2-4 .0 [facility] Monocytes [#/volume] in Blood by Automated count 1.82 10*3/uL 0-0.8 [facility] Eosinophils [#/volume] in Blood by Automated count 0.04 10*3/uL 0-0.5 [facility] Basophils [#/volume] in Blood by Automated count 0.11 10*3/uL 0-0.2 [facility] Nucleated erythrocytes/100 leukocytes [Ratio] in Blood by Automated count 0 /100{WBCs} 0-0 [facility] ID Date Data Source [id number] 05/31/2019 07:39:39 PM [facility] Name Value Range Interpretation Code Description Data Amarilis rce(s) Supporting Document(s) Prothrombin time (PT) 13.9 s 12.5-14.9 [facility] INR in Platelet poor plasma by Coagulation assay 1.03 [facility] Routine intensity oral anticoagulation I NR is typically 2.0-3.0. Target INR must be clinically individualized. ID Date Data Source [id number] 05/31/2019 07:39:39 PM [facility] Value Range Interpretation Code Description Data Amarilis rce(s) Supporting Document(s) aPTT in Platelet poor plasma by Coagulation assay 33.4 s 24.0-34. 0 [facility] ID Date Data Source [id number] 05/31/2019 07:47:27 PM [facility] Value Range Interpretation Code Description Data Amarilis rce(s) Supporting Document(s) Albumin [Mass/volume] in Serum or Plasma by Bromocresol green (BCG) dye binding method 3.0 g/dL 3.5-5.2 [facility] Bilirubin.total [Mass/volume] in Serum or Plasma 0.2 mg/dL <1.2 [facility] Bilirubin.direct [Mass/volume] in Serum or Plasma <0.3 [facility] Alkaline phosphatase [Enzymatic activity/volume] in Serum or Plasma 77 U/L 40-129 [facility] Aspartate aminotransferase [Enzymatic activity/volume] in Se rum or Plasma 9 U/L <40 [facility] Alanine aminotransferase [Enzymatic activity/volume] in Seru m or Plasma 10 U/L <41 [facility] Protein [Mass/volume] in Serum or Plasma 6.1 g/dL 6.4-8.3 [facility] ID Date Data Source [id number] 05/31/2019 07:47:27 PM [facility] Name Value Range Interpretation Code Description Data Amarilis rce(s) Supporting Document(s) Bicarbonate [Moles/volume] in Serum 26 mmol/L 22-29 [facility] Chloride [Moles/volume] in Serum or Plasma 98 mmol/L 98-107 [facility] Creatinine [Mass/volume] in Serum or Plasma 0.59 mg/dL 0.70-1.20 [facility] Glucose [Mass/volume] in Serum or Plasma 88 mg/dL 70-140 [facility] Potassium [Moles/volume] in Serum or Plasma 4.0 mmol/L 3.4-5.1 [facility] Sodium [Moles/volume] in Serum or Plasma 137 mmol/L 136-145 [facility] Urea nitrogen [Mass/volume] in Serum or Plasma 10 mg/dL 6-20 [facility] Anion gap 3 in Serum or Plasma 13 mmol/L 8-15 [facility] Osmolality of Serum or Plasma by calculation 282 mosm/kg 275-300 [facility] Creatinine/Urea nitrogen [Mass Ratio] in Serum or Plasma 17 [facility] Calcium [Mass/volume] in Serum or Plasma 8.6 mg/dL 8.6-10.0 [facility] Glomerular filtration rate/1.73 sq M pre dicted among non-blacks [Volume Rate/Area] in Serum or Plasma by Creatinine-based formula (MDRD) >6 0 [facility] Glomerular filtration rate/1.73 sq M pre dicted among blacks [Volume Rate/Area] in Serum or Plasma by Creatinine-based formula (MDRD) >60 [facility] ID Date Data Source [id number] 05/31/2019 07:43:23 PM [facility] Name Value Range Interpretation Code Description Data Amarilis rce(s) Supporting Document(s) ABO and Rh group [Type] in Blood [facility] Blood group antibody screen [Presence] in Serum or Plasma [facility] Blood bank comment [facility] Procedure Social History Code Duration Value Status Description Data Source(s ) Smoking 06/07/2020 02:13:00 PM EST Daily Smoker completed Daily S moker [facility] Alcohol intake 06/01/2019 12:00:00 AM EST Lifetime non-drinker (finding) completed Lifetime non-drinker (finding) [facility] Cigarette pack-years 06/01/2019 12:00:00 AM EST UNK [facility] Cigarettes smoked current (pack per day) - Reported 06/01/19 12:00:00 AM EST UNK [facility] Smoking 06/01/2019 12:00:00 AM EST Heavy tobacco smoker comple bryn Heavy tobacco smoker [facility] Vital Signs ID Date Data Source UNK Name Value Range Interpretation Code Description Data Source(s) Deprecated Oxygen saturation in Capillary blood by Oximetry 98 % Normal (applies to non-numeric results) 98 % [facility] Body temperature 37.6 jana Normal (applies to non-numeric results) 37.6 jana [facility] Respiratory rate 20 min Normal (applies to non-numeric results) 20 min [facility] Heart rate 95 min Normal (applies to non-numeric resul ts) 95 min [facility] Diastolic blood pressure 87 mm[Hg] Normal (applies to non-numeric results) 87 mm[Hg] [facility] Systolic blood pressure 128 mm[Hg] Normal (applies t o non-numeric results) 128 mm[Hg] [facility] Body height 174.3456 cm Normal (applies to non-numeric res ults) 174.3456 cm [facility] Body weight Measured 60.2 kg Normal (applies to non-num ayden results) 60.2 kg [facility] Body mass index (BMI) [Ratio] 19.60 kg/m2 No rmal (applies to non-numeric results) 19.60 kg/m2 [facility] Body mass index (BMI) [Ratio] 20.7 kg/m2 20.7 k g/m2 [facility] ([facility]) Body weight 140.00 [lb_av] 140.00 [lb_av] MEDEN T ([facility]) Body height 69 [in_i] 69 [in_i] [facility] ([facility]) 5'9" Respiratory rate 12 /min 12 /min [facility] ( [facility]) Body temperature 99.0 [degF] 99.0 [degF] [facility] ([facility]) Heart rate 92 /min 92 /min [facility] ([facility]) Diastolic blood pressure 69 mm[Hg] 69 mm[Hg] [facility] ([facility]) Systolic blood pressure 107 mm[Hg] 107 mm[Hg] M EDENT ([facility]) Body mass index (BMI) [Ratio] 20.1 kg/m2 20.1 k g/m2 [facility] ([facility]) Body height 69 [in_i] 69 [in_i] [facility] ([facility]) Diastolic blood pressure 73 mm[Hg] 73 mm[Hg] [facility] ([facility]) Body weight 2182.4 [oz_av] 2182.4 [oz_av] ATHEN A ([facility]) Systolic blood pressure 109 mm[Hg] 109 mm[Hg] [facility] ([facility]) Body weight 2192 [oz_av] 2192 [oz_av] [facility] ([facility]) Systolic blood pressure 107 mm[Hg] 107 mm[Hg] A [facility] ([facility]) Body mass index (BMI) [Ratio] 20.2 kg/m2 20.2 k g/m2 [facility] ([facility]) Body height 69 [in_i] 69 [in_i] [facility] ([facility]) Diastolic blood pressure 60 mm[Hg] 60 mm[Hg] [facility] ([facility]) Body weight 2192 [oz_av] 2192 [oz_av] [facility] ([facility]) Systolic blood pressure 107 mm[Hg] 107 mm[Hg] A [facility] ([facility]) Body mass index (BMI) [Ratio] 20.2 kg/m2 20.2 k g/m2 [facility] ([facility]) Body height 69 [in_i] 69 [in_i] [facility] ([facility]) Diastolic blood pressure 60 mm[Hg] 60 mm[Hg] [facility] ([facility]) Body surface area Derived from formula 1.76 m2 1.76 m2 [facility]) Body weight 62.313 kg 62.313 kg [facility] ([facility]) Roby body weight 160 [lb_av] 160 [lb_av] MEDEN T ([facility]) Body mass index (BMI) [Ratio] 20.3 kg/m2 20.3 k g/m2 [facility] Body weight 137.38 [lb_av] 137.38 [lb_av] [facility] T ([facility]) Body height 69 [in_i] 69 [in_i] [facility] ([facility]) 5'9" Diastolic blood pressure 69 mm[Hg] 69 mm[Hg] [facility] ([facility]) Systolic blood pressure 106 mm[Hg] 106 mm[Hg] [facility] Body weight 2144 [oz_av] 2144 [oz_av] [facility] ([facility]) Body mass index (BMI) [Ratio] 19.8 kg/m2 19.8 k g/m2 [facility] ([facility]) Body height 69 [in_i] 69 [in_i] [place] ([facility]) Body weight 2144 [oz_av] 2144 [oz_av] [facility] ([facility]) Body mass index (BMI) [Ratio] 19.8 kg/m2 19.8 k g/m2 [facility] ([facility]) Body height 69 [in_i] 69 [in_i] [facility] ([facility]) Body weight 2144 [oz_av] 2144 [oz_av] [facility] ([facility]) Body mass index (BMI) [Ratio] 19.8 kg/m2 19.8 k g/m2 [facility] ([facility]) Body height 69 [in_i] 69 [in_i] [facility] ([facility]) Body weight 2144 [oz_av] 2144 [oz_av] [facility] ([facility]) Body weight 2144 [oz_av] 2144 [oz_av] [facility] ([facility]) Systolic blood pressure 130 mm[Hg] 130 mm[Hg] A [facility] ([facility]) Body mass index (BMI) [Ratio] 19.8 kg/m2 19.8 k g/m2 [facility] ([facility]) Body height 69 [in_i] 69 [in_i] [facility] ([facility]) Diastolic blood pressure 101 mm[Hg] 101 mm[Hg] [facility] ([facility]) Body weight 2144 [oz_av] 2144 [oz_av] [facility] ([facility]) Systolic blood pressure 130 mm[Hg] 130 mm[Hg] A [facility] ([facility]) Body mass index (BMI) [Ratio] 19.8 kg/m2 19.8 k g/m2 [facility] ([facility]) Body height 69 [in_i] 69 [in_i] [facility] ([facility]) Diastolic blood pressure 101 mm[Hg] 101 mm[Hg] [facility] ([facility]) Systolic blood pressure 130 mm[Hg] 130 mm[Hg] A [facility] ([facility]) Body mass index (BMI) [Ratio] 19.8 kg/m2 19.8 k g/m2 [facility] ([facility]) Body height 69 [in_i] 69 [in_i] [facility] ([facility]) Diastolic blood pressure 101 mm[Hg] 101 mm[Hg] [facility] ([facility]) Body weight 2144 [oz_av] 2144 [oz_av] [facility] ([facility]) Systolic blood pressure 130 mm[Hg] 130 mm[Hg] A [facility] ([facility]) Body mass index (BMI) [Ratio] 19.8 kg/m2 19.8 k g/m2 [facility] ([facility]) Body height 69 [in_i] 69 [in_i] [facility] ([facility]) Diastolic blood pressure 101 mm[Hg] 101 mm[Hg] [facility] ([facility]) Body surface area Derived from formula 1.72 m2 1.72 m2 [facility] ([facility]) Body weight 59.138 kg 59.138 kg [facility] ([facility]) Roby body weight 160 [lb_av] 160 [lb_av] [facility] T ([facility]) Body mass index (BMI) [Ratio] 19.3 kg/m2 19.3 k g/m2 [facility] ([facility]) Body weight 130.38 [lb_av] 130.38 [lb_av] [facility] Body height 69 [in_i] 69 [in_i] [facility] ([facility], ) 5'9" Diastolic blood pressure 81 mm[Hg] 81 mm[Hg] [facility] ([facility]) Systolic blood pressure 126 mm[Hg] 126 mm[Hg] M JUSTIN ([facility], ) Body weight 2048 [oz_av] 2048 [oz_av] [facility] ([facility]) Systolic blood pressure 116 mm[Hg] 116 mm[Hg] A [facility] ([facility]) Body height 69 [in_i] 69 [in_i] [facility] ([facility]) Diastolic blood pressure 80 mm[Hg] 80 mm[Hg] REBEKAH ([facility]) Body weight 8 [oz_av] 2048 [oz_av] REBEKAH ([facility]) Systolic blood pressure 116 mm[Hg] 116 mm[Hg] A [facility] ([facility]) Body height 69 [in_i] 69 [in_i] REBEKAH ([facility]) Diastolic blood pressure 80 mm[Hg] 80 mm[Hg] REBEKAH ([facility]) Body weight 2048 [oz_av] 2048 [oz_av] REBEKAH ([facility]) Systolic blood pressure 116 mm[Hg] 116 mm[Hg] A [facility] ([facility]) Body height 69 [in_i] 69 [in_i] REBEKAH ([facility]) Diastolic blood pressure 80 mm[Hg] 80 mm[Hg] REBEKAH ([facility]) Body weight 2048 [oz_av] 2048 [oz_av] REBEKAH ([facility]) Systolic blood pressure 116 mm[Hg] 116 mm[Hg] A [facility] ([facility]) Body height 69 [in_i] 69 [in_i] REBEKAH ([facility]) Diastolic blood pressure 80 mm[Hg] 80 mm[Hg] REBEKAH ([facility]) Body surface area Derived from formula 1.73 m2 1.73 m2 [facility] ([facility], ) Body weight 59.478 kg 59.478 kg [facility] ([facility]) Roby body weight 160 [lb_av] 160 [lb_av] [facility] Body mass index (BMI) [Ratio] 19.4 kg/m2 19.4 k g/m2 [facility] ([facility]) Body weight 131.12 [lb_av] 131.12 [lb_av] [facility] Body height 69 [in_i] 69 [in_i] [facility] ([facility]) 5'9" Diastolic blood pressure 80 mm[Hg] 80 mm[Hg] [facility] ([facility]) Systolic blood pressure 118 mm[Hg] 118 mm[Hg] [facility] Body weight 2144 [oz_av] 2144 [oz_av] REBEKAH ([facility]) Systolic blood pressure 126 mm[Hg] 126 mm[Hg] A [facility] ([facility]) Body height 69 [in_i] 69 [in_i] REBEKAH ([facility]) Diastolic blood pressure 88 mm[Hg] 88 mm[Hg] REBEKAH ([facility]) Body weight 2144 [oz_av] 2144 [oz_av] REBEKAH ([facility]) Systolic blood pressure 126 mm[Hg] 126 mm[Hg] A [facility] ([facility]) Body height 69 [in_i] 69 [in_i] REBEKAH ([facility]) Diastolic blood pressure 88 mm[Hg] 88 mm[Hg] REBEKAH ([facility]) Body weight 2144 [oz_av] 2144 [oz_av] REBEKAH ([facility]) Body weight 2144 [oz_av] 2144 [oz_av] REBEKAH ([facility]) Systolic blood pressure 126 mm[Hg] 126 mm[Hg] [facility]) Body height 69 [in_i] 69 [in_i] REBEKAH ([facility]) Diastolic blood pressure 88 mm[Hg] 88 mm[Hg] REBEKAH ([facility]) Systolic blood pressure 126 mm[Hg] 126 mm[Hg] A THENA ([facility]) Body height 69 [in_i] 69 [in_i] REBEKAH ([facility]) Diastolic blood pressure 88 mm[Hg] 88 mm[Hg] REBEKAH ([facility]) Body weight 2144 [oz_av] 2144 [oz_av] REBEKAH ([facility]) Systolic blood pressure 105 mm[Hg] 105 mm[Hg] [facility]) Body height 69 [in_i] 69 [in_i] REBEKAH ([facility]) Diastolic blood pressure 73 mm[Hg] 73 mm[Hg] REBEKAH ([facility]) Body weight 2144 [oz_av] 2144 [oz_av] REBEKAH ([facility]) Systolic blood pressure 105 mm[Hg] 105 mm[Hg] A [facility] ([facility]) Body height 69 [in_i] 69 [in_i] REBEKAH ([facility]) Diastolic blood pressure 73 mm[Hg] 73 mm[Hg] [facility] [facility]) Body weight 2144 [oz_av] 2144 [oz_av] REBEKAH ([facility]) Systolic blood pressure 105 mm[Hg] 105 mm[Hg] A THENA ([facility]) Body height 69 [in_i] 69 [in_i] REBEKAH ([facility]) Diastolic blood pressure 73 mm[Hg] 73 mm[Hg] REBEKAH ([facility]) Body weight 2144 [oz_av] 2144 [oz_av] REBEKAH ([facility]) Systolic blood pressure 105 mm[Hg] 105 mm[Hg] [facility]) Body height 69 [in_i] 69 [in_i] REBEKAH ([facility]) Diastolic blood pressure 73 mm[Hg] 73 mm[Hg] REBEKAH ([facility]) Systolic blood pressure 119 mm[Hg] 119 mm[Hg] A THENA ([facility]) Body height 69 [in_i] 69 [in_i] REBEKAH ([facility]) Diastolic blood pressure 84 mm[Hg] 84 mm[Hg] REBEKAH ([facility]) Systolic blood pressure 119 mm[Hg] 119 mm[Hg] A THENA ([facility]) Body height 69 [in_i] 69 [in_i] REBEKAH ([facility]) Diastolic blood pressure 84 mm[Hg] 84 mm[Hg] REBEKAH ([facility]) Systolic blood pressure 119 mm[Hg] 119 mm[Hg] A [facility] ([facility]) Body height 69 [in_i] 69 [in_i] REBEKAH ([facility]) Diastolic blood pressure 84 mm[Hg] 84 mm[Hg] REBEKAH ([facility]) Systolic blood pressure 119 mm[Hg] 119 mm[Hg] A THENA ([facility]) Body height 69 [in_i] 69 [in_i] REBEKAH ([facility]) Diastolic blood pressure 84 mm[Hg] 84 mm[Hg] REBEKAH ([facility]) Body weight 2144 [oz_av] 2144 [oz_av] REBEKAH ([facility]) Systolic blood pressure 109 mm[Hg] 109 mm[Hg] A [facility] ([facility]) Body height 69 [in_i] 69 [in_i] REBEKAH ([facility]) Diastolic blood pressure 80 mm[Hg] 80 mm[Hg] REBEKAH ([facility]) Body weight 2144 [oz_av] 2144 [oz_av] REBEKAH ([facility]) Systolic blood pressure 109 mm[Hg] 109 mm[Hg] A THENA ([facility]) Body height 69 [in_i] 69 [in_i] REBEKAH ([facility]) Diastolic blood pressure 80 mm[Hg] 80 mm[Hg] REBEKAH ([facility]) Body weight 2144 [oz_av] 2144 [oz_av] REBEKAH ([facility]) Systolic blood pressure 109 mm[Hg] 109 mm[Hg] A THENA ([facility]) Body height 69 [in_i] 69 [in_i] REBEKAH ([facility]) Diastolic blood pressure 80 mm[Hg] 80 mm[Hg] REBEKAH ([facility]) Body weight 2144 [oz_av] 2144 [oz_av] REBEKAH ([facility]) Systolic blood pressure 109 mm[Hg] 109 mm[Hg] A THENA ([facility]) Body height 69 [in_i] 69 [in_i] REBEAKH ([facility]) Diastolic blood pressure 80 mm[Hg] 80 mm[Hg] REBEKAH ([facility]) Body weight 57.380 kg 57.380 kg [facility], ) Body mass index (BMI) [Ratio] 18.7 kg/m2 18.7 k g/m2 [facility] ([facility], ) Body weight 126.50 [lb_av] 126.50 [lb_av] MEDEN T ([facility], ) Body height 69 [in_i] 69 [in_i] [facility], [facility] 5'9" Body temperature 96.9 [degF] 96.9 [degF] [facility], ) Diastolic blood pressure 62 mm[Hg] 62 mm[Hg] MEDENT ([facility], ) Systolic blood pressure 110 mm[Hg] 110 mm[Hg] M JUSTIN ([facility], ) Body weight 1984 [oz_av] 1984 [oz_av] REBEKAH ([facility]) Systolic blood pressure 115 mm[Hg] 115 mm[Hg] A THENA ([facility]) Body height 69 [in_i] 69 [in_i] REBEKAH ([facility]) Diastolic blood pressure 72 mm[Hg] 72 mm[Hg] REBEKAH ([facility]) Body weight 1983 [oz_av] 1984 [oz_av] REBEKAH ([facility]) Systolic blood pressure 115 mm[Hg] 115 mm[Hg] A THENA ([facility]) Body height 69 [in_i] 69 [in_i] REBEKAH ([facility]) Diastolic blood pressure 72 mm[Hg] 72 mm[Hg] REBEKAH ([facility]) Body weight 1983 [oz_av] 1983 [oz_av] REBEKAH ([facility]) Systolic blood pressure 115 mm[Hg] 115 mm[Hg] A THENA ([facility]) Body height 69 [in_i] 69 [in_i] REBEKAH ([facility]) Diastolic blood pressure 72 mm[Hg] 72 mm[Hg] REBEKAH ([facility]) Body weight 1983 [oz_av] 1983 [oz_av] REBEKAH ([facility]) Systolic blood pressure 115 mm[Hg] 115 mm[Hg] A [facility] ([facility]) Body height 69 [in_i] 69 [in_i] REBEKAH ([facility]) Diastolic blood pressure 72 mm[Hg] 72 mm[Hg] REBEKAH ([facility]) Body weight 1868.8 [oz_av] 1868.8 [oz_av] ATHEN A ([facility]) Systolic blood pressure 109 mm[Hg] 109 mm[Hg] A [facility] ([facility]) Body height 69 [in_i] 69 [in_i] REBEKAH ([facility]) Diastolic blood pressure 76 mm[Hg] 76 mm[Hg] REBEKAH ([facility]) Body weight 1868.8 [oz_av] 1868.8 [oz_av] ATHEN A ([facility]) Systolic blood pressure 109 mm[Hg] 109 mm[Hg] A THENA ([facility]) Body height 69 [in_i] 69 [in_i] REBEKAH ([facility]) Diastolic blood pressure 76 mm[Hg] 76 mm[Hg] REBEKAH ([facility]) Body weight 1868.8 [oz_av] 1868.8 [oz_av] ATHEN A ([facility]) Systolic blood pressure 109 mm[Hg] 109 mm[Hg] A [facility] ([facility]) Body height 69 [in_i] 69 [in_i] REBEKAH ([facility]) Diastolic blood pressure 76 mm[Hg] 76 mm[Hg] REBEKAH ([facility]) Body weight 1868.8 [oz_av] 1868.8 [oz_av] ATHEN A ([facility]) Systolic blood pressure 109 mm[Hg] 109 mm[Hg] Hermila ANGELES ([facility]) Body height 69 [in_i] 69 [in_i] REBEKAH ([facility]) Diastolic blood pressure 76 mm[Hg] 76 mm[Hg] REBEKAH ([facility]) Body weight 52.277 kg 52.277 kg [facility] ([facility], ) Body mass index (BMI) [Ratio] 17.0 kg/m2 17.0 k g/m2 [facility] ([facility], ) Body weight 115.25 [lb_av] 115.25 [lb_av] NAUNRHIANNON T ([facility], ) Body height 69 [in_i] 69 [in_i] [facility] ([facility], ) 5'9" Diastolic blood pressure 62 mm[Hg] 62 mm[Hg] [facility] ([facility]) Systolic blood pressure 100 mm[Hg] 100 mm[Hg] M EDGAY ([facility]) ID Date Data Source [id number] 06/05/2019 10:35:59 AM [facility] Name Value Range Interpretation Code Description Data Source(s) WEIGHT RECORDED 289.91 lb 289.91 lb [facility] Body height Measured 72 in 72 in [facility] Patient Treatment Plan of Care Planned Activity Planned Date Details Description Data Source (s) 24 HR Nicotine 0.583 MG/HR Transdermal Patch 06/02/2019 09:00:00 AM [facility] sodium chloride (preservative free) 0.9 % flush 3 mL 020 01:00:00 AM [facility] Tetrahydrocannabinol 5 MG Oral Capsule REBEKAH ([facility]) Tetrahydrocannabinol 5 MG Oral Capsule REBEKAH ([facility]) Tetrahydrocannabinol 5 MG Oral Capsule REBEKAH ([facility]) Tetrahydrocannabinol 5 MG Oral Capsule REBEKAH ([facility])
--- OUTSIDE RECORDS SUMMARY | 2020-06-19 15:13 | CCD ---
Author Author [facility] Organization [facility] Address Unknown Phone Unavailable Care Team Providers Care Dispensing Audiologist Name Role Phone Sissy Crain JR, MD Unavailable Unavailable Sissy Crain JR, MD Unavailable Unavailable Sissy Crain JR, MD Unavailable Unavailable Sissy Crain JR, MD Unavailable Unavailable Sisys Crain JR, MD Unavailable Unavailable Sissy Crain [...] J Laron Unavailable Unavailable Paras JR J Laorn Unavailable Unavailable Paras JR, J Laron Unavailable [...] Unavailable Mathieu Henderson MD Unavailable Unavailable Saundra Oniell MD Unavailable Unavailable Saundra Oneill MD Unavailable [...] Unavailable Mathieu Henderson MD Unavailable Unavailable Mathieu Hendreson MD Unavailable Unavailable Mathieu Henderson MD Unavailable [...] Unavailable Alejandra SIMS MD Unavailable Unavailable Alejandra ISMS MD Unavailable Unavailable Alejandra SIMS MD Unavailable [...] Unavailable Unavailable Idalia Henderson MD Unavailable Unavailable Idalai Henderson MD Unavailable Unavailable Idalia Henderson MD [...] is protected by Article 27-F of the [facility] Public Health law. If you continue you may have access to information: Regarding HIV / AIDS; Provided by facilities licensed or operated by the [facility] Office of Mental Health; or Provided by the [facility] Office for People With Developmental Disabilities. If such information is present, then the following [facility] mandated warning applies: This information has been [...] law may result in a fine or [place] health [place] facility sentence or both. A general authorization for the release of medical or other information is NOT sufficient authorization for further disc losure. Allergies and Adverse Reactions Type Description Substance Reaction Status Data Source(s ) Drug Class NO KNOWN ALLERGIES NO KNOWN ALLERGIES [facility] Encounters Encounter Providers Location Date Indications Data Source(s ) Inpatient Attender: Sherry Henderson MD 06/11/2020 07:52:11 AM EST Lab [facility] Inpatient Attender: Sherry Henderson MDAdmitter: Sherry butt MD 06/11/2020 05:13:00 AM EST - 06/16/2020 12:02:00 PM EST ILEOSTOMY STATUS, COLOSTOMY STATUS & HX COLON CARCINOMA Z85. [facility] ILEOSTOMY STATUS, COLOSTOMY STATUS & HX COLON CARCINOMA Z85. Patient discharged. ( in Healthcare facility) Attender: Sherry Henderson MDAdmitter: Sherry Henderson MDConsultant: Daniel Henderson MD 06/11/2020 05:13:00 AM ES T [facility] Outpatient Attender: Sherry Henderson MD 06/07/2020 02:21:03 PM EST Lab [facility] Outpatient Attender: Sherry Henderson MD 06/07/2020 01 :49:00 PM EST URGENT OPEN TAKEDOWN OF ILEOSTOMY, TAKEDOWN COLOSTOMY AND LO [facility] URGENT OPEN TAKEDOWN OF ILEOSTOMY, TAKED OWN COLOSTOMY AND LO Outpatient Attender: Sherry Henderson MD [place] 05/31/2020 01:45:00 PM EST [facility] ([facility]) Daniel Henderson MD: [address] [place] [address], Ph. Attender: Daniel Henderson MD [facility] Medical 05/25/2020 12:00:00 AM EST [place] ([facility]) Daniel Henderson MD: [address] [place] [address], Ph. Attender: Daniel Henderson MD [facility] Medical 04/27/2020 12:00:00 AM EST [place] ([facility]) Daniel Henderson MD: [address] [place] [address], Ph. Attender: Daniel Henderson MD [facility] Medical 04/27/2020 12:00:00 AM EST [place] ([facility]) Daniel Henderson MD: [address] [place] [address], Ph. Attender: Daniel Henderson MD [facility] Medical 03/29/2020 12:00:00 AM EST [place] ([facility]) Daniel Henderson MD: [address] [place] [address], Ph. Attender: Daniel Henderson MD [facility] Medical 03/29/2020 12:00:00 AM EST [place] ([facility]) Daniel Henderson MD: [address] [place] [address], Ph. Attender: Daniel Henderson MD [facility] Medical 03/29/2020 12:00:00 AM EST [place] ([facility]) Daniel Henderson MD: [address] [place] [address], Ph. Attender: Daniel Henderson MD [facility] Medical 03/01/2020 12:00:00 AM EDT [place] ([facility]) Daniel Henderson MD: [address] [place] [address], Ph. Attender: Daniel Henderson MD [facility] Medical 03/01/2020 12:00:00 AM EDT [place] ([facility]) Daniel Henderson MD: [address] [place] [address], Ph. Attender: Daniel Henderson MD [facility] Medical 03/01/2020 12:00:00 AM EDT [place] ([facility]) Daniel Henderson MD: [address] [place] [address], Ph. Attender: Daniel Henderson MD [facility] Medical 03/01/2020 12:00:00 AM EDT [place] ([facility]) Outpatient Attender: Daniel Henderson MD FP 02/24/2020 01:27:00 PM EDT [facility] Outpatient Attender: Laron Colindres/Cam/Herbert/Horacio dl 02/16/2020 08:40:00 AM EDT [facility] ([facility] Outpatient Attender: Daniel Henderson MD FP 02/03/2020 10:32:01 AM EDT [facility] Outpatient Attender: Daniel Henderson MD FP 02/02/2020 10:53:02 AM EDT [facility] Outpatient Attender: Daniel Henderson MD FP 01/10/2020 11:45:01 AM EDT [facility] Outpatient Attender: Daniel Henderson MD FP 01/05/2020 10:04:01 AM EDT [facility] Outpatient Attender: Daniel Henderson MD FP 12/31/2019 09:52:02 AM EDT [facility] Outpatient Attender: Daniel Henderson MD FP 12/31/2019 09:23:00 AM EDT [facility] Outpatient Attender: Daniel Henderson MD FP 12/17/2019 12:02:28 AM EDT [facility] Outpatient Attender: Daniel Henderson MD FP 12/16/2019 09:35:00 AM EDT [facility] Outpatient Attender: Laron Colindres/Cam/Herbert/Horacio dl 11/26/2019 08:50:00 AM EDT [facility] ([facility] ) Outpatient Attender: Daniel Henderson MD FP 11/24/2019 11:27:01 AM EDT [facility] Outpatient Attender: Daniel Henderson MD FP 11/24/2019 10:19:01 AM EDT [facility] Outpatient Attender: Daniel Henderson MD FP 11/22/2019 12:02:25 AM EDT [facility] Outpatient Attender: Daniel Henderson MD FP 11/21/2019 02:23:01 PM EDT [facility] Outpatient Attender: Daniel Henderson MD FP 11/19/2019 01:48:01 PM EDT [facility] Outpatient Attender: Daniel Henderson MD FP 11/19/2019 11:49:01 AM EDT [facility] Outpatient Attender: Daniel Henderson MD FP 11/17/2019 01:34:00 PM EDT [facility] Outpatient Attender: Daniel Henderson MD FP 11/10/2019 11:59:00 AM EDT [facility] Outpatient Attender: Daniel Henderson MD FP 11/05/2019 11:10:01 AM EDT [facility] Outpatient Attender: Daniel Henderson MD FP 10/28/2019 03:30:03 PM EDT [facility] Outpatient Attender: Daniel Henderson MD FP 10/24/2019 12:02:28 AM EDT [facility] Outpatient Attender: Daniel Henderson MD FP 10/23/2019 05:00:01 PM EDT [facility] Outpatient Attender: Daniel Henderson MD FP 10/23/2019 11:49:01 AM EDT [facility] Outpatient Attender: Daniel Henderson MD FP 10/22/2019 12:02:22 AM EDT [facility] Outpatient Attender: Daniel Henderson MD FP 10/21/2019 02:40:01 PM EDT [facility] Outpatient Attender: Daniel Henderson MD FP 10/21/2019 02:39:02 PM EDT [facility] Outpatient Attender: Daniel Henderson MD FP 10/21/2019 01:40:00 PM EDT [facility] Outpatient Attender: Daniel Henderson MD FP 10/21/2019 10:12:00 AM EDT [facility] Outpatient Attender: Saundra Oneill MD FP 10/14/2019 07:58:37 PM E DT [facility] Outpatient Attender: Saundra Oneill MD FP 09/23/2019 02:52:01 PM E DT [facility] Outpatient Attender: Saundra Oneill MD FP 09/23/2019 02:51:00 PM E DT [facility] Outpatient Attender: Saundra Oneill MD FP 09/22/2019 09:43:00 AM E DT [facility] Outpatient 09/16/2019 06:22:00 AM EDT [facility] Outpatient Attender: GIO SIMS MD FP 09/08/2019 10:20:00 A M EDT [facility] Outpatient Attender: GIO SIMS MD FP 09/04/2019 02:27:01 P M EDT [facility] Outpatient Attender: GIO SIMS MD FP 08/27/2019 10:25:01 A M EDT [facility] Outpatient 08/15/2019 06:14:00 AM EDT [facility] Outpatient Attender: GIO SIMS MD FP 07/30/2019 01:25:00 P M EDT [facility] Outpatient Attender: GIO SIMS MD FP 07/25/2019 03:37:00 P M EDT [facility] Outpatient Attender: GIO SIMS MD FP 07/17/2019 03:10:04 P M EDT [facility] Outpatient Attender: GIO SIMS MD FP 07/17/2019 03:10:04 P M EDT [facility] Outpatient Attender: GIO SIMS MD FP 07/17/2019 03:09:03 P M [facility] Outpatient Attender: GIO SIMS MD FP 07/11/2019 09:42:00 A [facility] Outpatient 07/03/2019 12:31:00 PM [facility] Outpatient Attender: GIO SIMS MD 07/03/2019 10:19:02 A [facility] Outpatient 07/01/2019 09:47:00 AM EST [facility] [address] [address] 06/30/2019 12:00:00 AM EST eCW1 ([facility]) Outpatient 06/26/2019 02:25:00 PM EST [facility] Outpatient 06/25/2019 01:31:00 PM [facility] Outpatient Attender: GIO SIMS MD FP 06/20/2019 10:38:00 A [facility] Outpatient Attender: GIO SIMS MD FP 06/18/2019 10:04:05 A [facility] Outpatient Attender: GIO SIMS MD 06/18/2019 08:44:00 A [facility] Outpatient 06/17/2019 02:34:00 PM [facility] Outpatient Attender: GIO SIMS MD FP 06/16/2019 04:08:00 P [facility] Outpatient Attender: GIO SIMS MD 06/16/2019 09:21:00 A [facility] Outpatient 06/02/2019 12:47:00 PM [facility] Outpatient Attender: GIO SIMS MD FP 06/02/2019 11:00:04 A [facility] Outpatient Attender: GRIS HOBBS MDReferrer: GRIS HOBBS MD 06/01/2019 12:00:00 AM [facility] Inpatient Attender: GRIS Guzman r: CHARLINE MÁRQUEZ MDAdmitter: GRIS HOBBS MDReferrer: [facility] [employer] IN 05/31/2019 12:00:00 AM [facility] - 06/02/2019 12:00:00 AM [facility] Peritoneal abscess Patient discharged. Outpatient Attender: GIO SIMS MD 05/27/2019 01:59:00 P [facility] Outpatient Attender: GIO SIMS MD 05/27/2019 01:56:00 P [facility] Outpatient Attender: GIO SIMS MD 05/27/2019 01:55:02 P [facility] Outpatient Attender: GIO SIMS MD 05/27/2019 01:55:01 P [facility] Outpatient Attender: GIO SIMS MD 05/27/2019 10:13:00 A [facility] Outpatient Attender: GIO SIMS MD 05/12/2019 01:13:02 P [facility] Outpatient Attender: GIO SIMS MD 05/12/2019 11:47:01 A [facility] Outpatient Attender: GIO SIMS MD 05/09/2019 12:01:00 P [facility] Outpatient Attender: GIO SIMS MD 05/09/2019 11:52:01 A [facility] Outpatient Attender: GIO SIMS MD 05/09/2019 09:38:01 A [facility] Outpatient Attender: GIO SIMS MD 05/09/2019 09:20:01 A [facility] Outpatient Attender: GIO SIMS MD 05/08/2019 01:16:01 P [facility] Outpatient Attender: GIO SIMS MD 05/02/2019 09:46:00 A [facility] Outpatient Attender: GIO SIMS MD 05/02/2019 09:45:02 A [facility] Outpatient Attender: GIO SIMS MD 04/28/2019 02:53:02 P [facility] Medications Medication Brand Name Start Date Product [...] on Sun06/02/19 at 0900, For 30 days [facility] Medication administered onsite sodium chloride (preservative free) 0.9 % flush 3 mL 06/02/2019 01:00:00 AM EST 3 mL Intravenous active [Ord er 1 Start] Name: Peripheral IV Signed Summary: Routine, CONTINUOUS, Starting [place] 06/01/19 at 2025, Until Sun07/01/19, For 30 [...] 3 mL, Intravenous, PRN, Line Care, Starting [place] 06/01/19 at 2024, For 30 days
Saline Lock. Flush Q8H and after each use to Saline Lock.
[Order 3 End] [Order 4 Start] Name: Saline Lock order Signed Summary: Routine, ONCE, [place] 06/01/19 at 2025, For 1 occurrence [Order 4 End] [Order 5 Start] Name: NaCl infusion 0.9 % Signed Summary: at 0.2-10 mL/hr, Intravenous, PRN, For Meds, Starting [place] 06/01/19 at 2024, For 30 days [Order 5 End] [Order 6 Start] Name: dextrose 5 % infusion Signed Summary: at 0.2-10 mL/hr, Intravenous, PRN, For Meds, Starting [place] 06/01/19 at 2024, For 30 days [Order 6 End] [facility] Medication administered onsite gabapentin 100 MG Oral Capsule gabapentin (NEURONTIN) capsule 100 mg gabapentin (NEURONTIN) capsule 100 mg 06/01/2019 05:00:00 PM EST 100 mg Oral active 100 mg, Oral, Three Times D aily Standard, First dose on Sun06/01/19 at 1700, For 30 days [facility] Medication administered onsite Ibuprofen 200 MG Oral Tablet ibuprofen (ADVIL,MOTRIN) tablet 400 mg ibuprofen (ADVIL,MOTRIN) tablet 400 mg 06/01/2019 01:45:00 PM EST 400 mg Oral active 400 mg, Oral, Every 6 hours, First dose on 06/01/19 at 1345, For 30 days
Take with food.
[facility] Medication administered onsite lidocaine (XYLOCAINE) 2 % injection 6451-4153-98 06/01/2019 12:57:00 PM EST completed Code/Trauma Medicati on, Starting 06/01/19 at 1257 [facility] Medication administered onsite fentaNYL (SUBLIMAZE) (PF) injection 8151-1946-71 06/01/2019 12:55:00 PM EST completed Code/Trauma Medicati on, Starting 06/01/19 at 1255 [facility] Medication administered onsite Buprenorphine 8 MG / Naloxone 2 MG Subli ngual Tablet buprenorphine-naloxone (SUBOXONE) 8-2 MG per sublingual tablet 1 tablet buprenorphine-naloxone (SUBOXONE) 8-2 MG per sublingual tablet 1 tablet 06/01/2019 09:00:00 AM EST Sublingual active 1 tablet (8 mg of buprenorphine), Sublingual, Daily Standard, First dose on 06/01/19 at 0900, For 3 days [facility] Medication administered onsite ondansetron (ZOFRAN) injection 4 mg [id number] 06/01/2019 04:11:5 9 AM EST 4 mg Intravenous active 4 mg, In travenous, Every 8 hours PRN, Nausea, Vomiting, Starting 06/01/19 at 0411, For 30 days [facility] Medication administered onsite 1 ML Ketorolac Tromethamine 30 MG/ML Car tridge ketorolac (TORADOL) injection 15 mg ketorolac (TORADOL) injection 15 mg 06/01/2019 01:15:00 AM EST 15 mg Intravenous completed 15 mg, Intrav enous, Once, 06/01/19 at 0115, For 1 dose [facility] Medication administered onsite NaCl infusion 0.9 % [id number] 06/01/2019 12:30:00 AM EST Intravenous active at 100 mL/hr, Intrav enous, Continuous, Starting 06/01/19 at 0030, For 30 days [facility] Medication administered onsite Ceftriaxone 1000 MG Injection cefTRIAXone (ROCEPHIN) i nfusion 1 g (premix) cefTRIAXone (ROCEPHIN) infusion 1 g (premix) 06/01/2019 12:15:40 AM EST 1 g Intravenous active 1 g, Intraven ous, at 100 mL/hr, Every 24 hours, First dose on 06/01/19 at 0030, For 7 days
Discouraged Uses: Empiric treatment of post-surgical meningitis (ceftazidime preferred)
[facility] Medication administered onsite Metronidazole 5 MG/ML Injectable Solution metroNIDAZOL E (FLAGYL) IVPB 500 mg metroNIDAZOLE (FLAGYL) IVPB 500 mg 06/01/2019 12:15:40 AM EST 50 0 mg Intravenous active 500 mg, Intra venous, Administer over 60 Minutes, Every 8 hours, First dose on 06/01/19 at 0030, For 7 days [facility] Medication administered onsite iohexol (OMNIPAQUE) 300 MG/ML contrast injection 100 mL [id number] 05/31/2019 11:15:00 PM EST 100 mL Given by IV completed 100 mL, Given by IV, 1 TIME IMAGING, 05/31/19 at 2315, For 1 dose [facility] Medication administered onsite Acetaminophen 325 MG Oral Tablet acetaminophen (TYLENO L) tablet 650 mg acetaminophen (TYLENOL) tablet 650 mg 05/31/2019 08:30:00 PM EST 65 0 mg Oral active 650 mg, Oral, E very 6 hours, First dose on 05/31/19 at 2030, For 30 days
Maximum daily dose of acetaminophen is 3,000 mg from all sources in 24 hours.
[facility] Medication administered onsite 1 ML Ketorolac Tromethamine 30 MG/ML Car tridge ketorolac (TORADOL) injection 15 mg ketorolac (TORADOL) injection 15 mg 05/31/2019 08:30:00 PM EST 15 mg Intravenous completed 15 mg, Intrav enous, Once, 05/31/19 at 2030, For 1 dose [facility] Medication administered onsite morphine sulfate (PF) injection 4 mg [id number] 05/31/2019 08:00: 00 PM EST 4 mg Intravenous completed 4 mg, In travenous, Once, 05/31/19 at 2000, For 1 dose [facility] Medication administered onsite Piperacillin 3000 MG / tazobactam 375 MG Injection piperacillin-tazobactam (ZOSYN) IVPB 3.375 g (premix) piperacillin-tazobactam (ZOSYN) IVPB 3.3 75 g (premix) 05/31/2019 07:00:00 PM EST 3.375 g Intravenous com pleted 3.375 g, Intravenous, Administer over 0.5 Hours, Once, 05/31/19 at 1900, For 1 dose [facility] Medication administered onsite Tetrahydrocannabinol 5 MG Oral Capsule dronabinol 5 mg capsule dronabinol 5 mg capsule completed dronabinol 5 M G Oral Capsule [facility] ([facility]) Tetrahydrocannabinol 5 MG Oral Capsule dronabinol 5 mg capsule dronabinol 5 mg capsule completed dronabinol 5 M G Oral Capsule [facility] ([facility]) Tetrahydrocannabinol 5 MG Oral Capsule dronabinol 5 mg capsule dronabinol 5 mg capsule completed dronabinol 5 M G Oral Capsule [place] ([facility]) Tetrahydrocannabinol 5 MG Oral Capsule dronabinol 5 mg capsule dronabinol 5 mg capsule completed dronabinol 5 M G Oral Capsule [place] ([facility]) Insurance Providers Payer name Policy type / Coverage type Policy ID Covered green party ID Covered green party's relationship to murillo Policy [place] Plan Information [facility] COMMUNITY PLAN [facility] [id number] SP [id number] MEDICAID GME [id number] S [id number] [facility] [id number] S [id number] HEA [id number] SELF PAY ONLY [id number] SP [id number] SELF PAY ONLY [id number] SP [id number] [facility] COMMUNITY PLAN [facility] [id number] SP [id number] [facility] COMMUNITY PLAN [facility] [id number] SP [id number] Managed Care [facility] Community Plan P [id number] S [id number] Medicaid S [id number] Managed Care - [facility] Community Plan P [id number] S [id number] [facility] I [id number] Self [id number] [facility] O [id number] S [id number] Managed Care [facility] Community Plan P [id number] S [id number] [facility] COMMUNITY PLAN [facility] [id number] SP [id number] MEDICAID [id number] SP [id number] Managed Care [facility] Community Plan P [id number] S [id number] ANSI-Medicaid [id number] ANS-Medicaid [id number] ANSI-Medicaid [id number] ANSI-Medicaid [id number] MEDICAID M [id number] S [id number] UNAVAILABLE UNAVAILA BLE SELF PAY UNAVAILABLE SP UNAVAILA BLE SELF PAY ONLY UNAVAILABLE UNAV AILABLE MEDICAID [id number] SP [id number] Problems, Conditions, and Diagnoses Code Display Name Description Problem Type Effective Dates Data Source(s) V70.0 Encounter for general adult medical exam ination with abnormal findings Encounter for general adult medical examination with abnormal findings 10/21/2019 02:38:37 PM EDT [facility] [id number] Procedure by method Procedure by Method Problem 0 10/21/2019 12:00:00 AM EDT [place] ([facility]) [id number] Procedure by method Procedure by Method Problem 0 10/21/2019 12:00:00 AM EDT [place] ([facility]) [id number] Procedure by method Procedure by Method Problem 0 10/21/2019 12:00:00 AM EDT [place] ([facility]) [id number] Procedure by method Procedure by Method Problem 0 10/21/2019 12:00:00 AM EDT [place] ([facility]) C18.2 Malignant neoplasm of ascending colon Ma lignant neoplasm of ascending colon 07/17/2019 03:08:27 PM EDT [facility] Z93.3 Colostomy status H/O: colostomy 07/17/2019 03:0 8:27 PM EDT [facility] [id number] Colostomy present Colostomy Present Problem 07/16 12:00:00 AM EDT [place] ([facility]) [id number] Malignant tumor of ascending colon Malignant Rafita or of Ascending Colon Problem 07/17/2019 12:00:00 AM EDT [place] ([facility]) [id number] Colostomy present Colostomy Present Problem 07/16 12:00:00 AM EDT [place] ([facility]) [id number] Malignant tumor of ascending colon Malignant Rafita or of Ascending Colon Problem 07/17/2019 12:00:00 AM EDT [place] ([facility]) [id number] Colostomy present Colostomy Present Problem 07/16 12:00:00 AM EDT [place] ([facility]) [id number] Malignant tumor of ascending colon Malignant Rafita or of Ascending Colon Problem 07/17/2019 12:00:00 AM EDT [place] ([facility]) [id number] Colostomy present Colostomy Present Problem 07/16 12:00:00 AM EDT [place] ([facility]) [id number] Malignant tumor of ascending colon Malignant Rafita or of Ascending Colon Problem 07/17/2019 12:00:00 AM EDT [place] ([facility]) K65.1 Peritoneal abscess Peritoneal abscess Diagnosis 08:19:05 PM [facility] left ileo psoas abscess and free air left ileo p soas abscess and free air Diagnosis 05/31/2019 06:13:27 PM [facility] Surgeries/Procedures Procedure Description Date Indications Data Source(s) Colonoscopy Thru Stoma Remove Tumor/Polyp/Lesion Snare Techn ique 03/25/2020 12:00:00 AM MICKIE DHILLON ([facility] Pr tawana, ) RADIOLOGY REPORT RADIOLOGY REPORT 06/01/2019 1:23 PM EST 06/01/2019 06:23:47 PM [facility] IR IMAGE GUIDED NEEDLE DRAIN PROCEDURE IR IMAGE GUIDED NEED LE DRAIN PROCEDURE STAT 06/01/2019 1:10 PM EST 06/01/2019 06:10:00 PM [facility] BLOOD COUNT COMPLETE AUTOMATED CBC Routine 06/01/2019 5:59 A M EST 06/01/2019 10:59:00 AM [facility] PHOSPHORUS INORGANIC PHOSPHORUS LEVEL Routine 06/01/2019 5:[address] 06/01/2019 10:59:00 AM [facility] MAGNESIUM MAGNESIUM LEVEL Routine 06/01/2019 5:59 AM EST 06/01/2019 10:59:00 AM [facility] BASIC METABOLIC PANEL CALCIUM TOTAL BASIC METABOLIC PANEL Routi ne 06/01/2019 5:59 AM EST 06/01/2019 10:59:00 AM [facility] CT ABDOEN & PELVIS W/CONTRAST MATERIAL CT ABDOMEN PELVIS WI TH CONTRAST [id number] STAT 06/01/2019 12:16 AM EST 06/01/2019 05:16:56 AM [facility] BASIC METABOLIC PANEL CALCIUM IONIZED POCT ISTAT CHEM8 Routine 05/31/2019 7:11 PM EST 06/01/2019 12:11:00 AM [facility] BLOOD GASES ANY COMBINATION PH PCO2 PO2 CO2 HCO3 POCT ISTAT VBG /LAC Routine 05/31/2019 7:07 PM EST 06/01/2019 12:07:00 AM [facility] THROMBOPLASTIN TIME PARTIAL PLASMA/WHOLE BLOOD PARTIA L THROMBOPLASTIN TIME (PTT) STAT 05/31/2019 7:00 PM EST 06/01/2019 12:00 :00 AM [facility] PROTHROMBIN TIME PROTIME INR STAT 05/31/2019 7:00 PM EST 06/01/2019 12:00:00 AM [facility] BLOOD COUNT COMPLETE AUTO&AUTO DIFRNTL WBC COUNT CBC AND DIFFER ENTIAL STAT 05/31/2019 7:00 PM EST 06/01/2019 12:00:00 AM [facility] BLOOD TYPING ABO TYPE AND SCREEN STAT 05/31/2019 7:00 PM EST 06/01/2019 12:00:00 AM [facility] HEPATIC FUNCTION PANEL HEPATIC FUNCTION PANEL A STAT 0 7:00 PM EST 06/01/2019 12:00:00 AM [facility] BASIC METABOLIC PANEL CALCIUM TOTAL BASIC METABOLIC PANEL STAT 05/31/2019 7:00 PM EST 06/01/2019 12:00:00 AM [facility] EKG ED PHYSICIAN INTERPRETATION EKG ED PHYSICIAN INTERPRETATION Routine 05/31/2019 6:32 PM EST 05/31/2019 11:32:46 PM [facility] EKG 12-LEAD - CMAXX REPORT EKG 12-LEAD - CMAXX REPORT 05/31/2019 6:23 PM EST 05/31/2019 11:23:11 PM EST [facility] EKG 12-LEAD - CMAXX REPORT EKG 12-LEAD - CMAXX REPORT 05/31/2019 6:23 PM EST 05/31/2019 11:23:11 PM EST [facility] EKG 12-LEAD EKG 12-LEAD STAT 05/31/2019 6:23 PM EST 05/31/2019 11:23:11 PM [facility] EKG 12-LEAD - CMAXX REPORT EKG 12-LEAD - CMAXX REPORT 05/31/2019 6:23 PM EST 05/31/2019 11:23:00 PM EST [facility] Results ID Date Data Source [id number] 06/15/2020 04:13:54 PM EST [facility] Name Value Range Interpretation Code Description Data Amarilis rce(s) Supporting Document(s) WBC 9.6 10*3/uL (4.1-11.0) [facility] [place] RBC 2.54 10*6/uL (4.60-6.10) L [facility] HGB 8.2 g/dL (13.5-18.0) L [facility] HCT 24.0 % (41.0-53.0) L [facility] PATIENT TRANSFUSED MCV 94.5 fL (80.0-95.0) [facility] MCH 32.4 pg (27.0-32.0) H [facility] MCHC 34.3 g/dL (32.0-36.0) [facility] RDW 14.8 % (10.5-14.5) H [facility] PLT 260 10*3/uL (150-450) [facility] MPV 6.8 fL (7.1-10.7) L [facility] ID Date Data Source [id number] 06/15/2020 04:28:53 PM EST [facility] CLERICAL CHECK CLERICAL CHEC K OKPRE RXN SPEC DEBORAH NORMALPOST RXN SPEC DEBORAH NORMALTRANSFUSION REACTION SEE SEPARATE TRANSFUSION REACTION REPORT FOR PAT HOLOGIST INTERPRETATION.TESTING SITE PERFORMED AT [address] [place], [place] [address]PATIENT ABO/Rh O POSITIVEDAT, C3 SPECIFIC NEGATIVEPOST RX NAHID NEGATIVE Name Value Range Interpretation Code Description Data Amarilis rce(s) Supporting Document(s) ID Date Data Source [id number] 06/16/2020 02:07:29 AM EST [facility] PATIENT ABO/Rh O POSITIVEANT IBODY SCREEN NEGATIVESPEC EXP DATE 06/18/2020TESTING SITE PERFORMED AT [address] [address]BLOOD BANK COMMENT BLOOD TYPE CONFIRMED.UNIT NUMBER [id number] COMPONENT TYPE LEUKOPOOR RED CELLSUNIT DIVISION 00STATUS OF UNIT TRANSFUSEDTRANSFUSION STATUS OK TO TRANSFUSECROSSMATCH RESULT COMPATIBLE Name Value Range Interpretation Code Description Data Amarilis rce(s) Supporting Document(s) TYPE AND CROSSMATCH [facility] [place] PATIENT ABO/Rh O POSITIVE ID Date Data Source [id number] 06/15/2020 07:26:44 AM EST [facility] Name Value Range Interpretation Code Description Data Amarilis rce(s) Supporting Document(s) WBC 9.7 10*3/uL (4.1-11.0) [facility] [place] RBC 2.00 10*6/uL (4.60-6.10) L [facility] HGB 6.7 g/dL (13.5-18.0) LL [facility] RESULT(S) CALLED TO AND READ BACK ANA ALONSO ON 5S AT 0725 ON 06/15/20 [place] [id number] HCT 19.3 % (41.0-53.0) LL [facility] MCV 96.7 fL (80.0-95.0) H [facility] MCH 33.3 pg (27.0-32.0) H [facility] MCHC 34.5 g/dL (32.0-36.0) [facility] RDW 13.7 % (10.5-14.5) [facility] PLT 259 10*3/uL (150-450) [facility] MPV 6.9 fL (7.1-10.7) L [facility] ID Date Data Source [id number] 06/14/2020 07:43:25 AM EST [facility] Name Value Range Interpretation Code Description Data Amarilis rce(s) Supporting Document(s) SODIUM 140 mmol/L (136-145) [facility] POTASSIUM 3.7 mmol/L (3.6-5.2) [facility] CHLORIDE 106 mmol/L (100-108) [facility] CO2 25 mmol/L (22-31) [facility] ANION GAP 9 mmol/L (7-16) [facility] UREA NITROGEN 10 mg/dL (7-24) [facility] CREATININE 0.60 mg/dL (0.80-1.30) L [facility] BUN/CREAT RATIO 16.7 RATIO (10.0-20.0) [facility] GLUCOSE 89 mg/dL (70-99) [facility] CALCIUM 7.8 mg/dL (8.4-10.2) L [facility] GFR >60 ml/min/1.73m2 (>59) [facility] GFR ( AMER) >60 ml/min/1.73m2 (>59) [facility] GFR INTERPRETATION [facility] --NORMAL KIDNEY FUNCTION OR MILD DISEASE - GFR >OR= 60CHRONIC KIDNEY DISEASE - GFR 15 - 59RENAL FAILURE - GFR <15 Est. GFR calculation based on the MDRDstudy equation, which assumes a steadystate for creatinine. Est. GFR should notbe used for medication dosing. ID Date Data Source [id number] 06/14/2020 07:22:07 AM EST [facility] Name Value Range Interpretation Code Description Data Amarilis rce(s) Supporting Document(s) WBC 11.6 10*3/uL (4.1-11.0) H [facility] RBC 2.20 10*6/uL (4.60-6.10) L [facility] HGB 7.1 g/dL (13.5-18.0) L [facility] HCT 21.5 % (41.0-53.0) L [facility] MCV 97.4 fL (80.0-95.0) H [facility] MCH 32.4 pg (27.0-32.0) H [facility] MCHC 33.2 g/dL (32.0-36.0) [facility] RDW 13.6 % (10.5-14.5) [facility] PLT 217 10*3/uL (150-450) [facility] MPV 7.0 fL (7.1-10.7) L [facility] ID Date Data Source [id number] 06/13/2020 07:58:24 AM EST [facility] Name Value Range Interpretation Code Description Data Amarilis rce(s) Supporting Document(s) SODIUM 142 mmol/L (136-145) [facility] POTASSIUM 4.1 mmol/L (3.6-5.2) [facility] CHLORIDE 108 mmol/L (100-108) [facility] CO2 25 mmol/L (22-31) [facility] ANION GAP 9 mmol/L (7-16) [facility] UREA NITROGEN 12 mg/dL (7-24) [facility] CREATININE 0.57 mg/dL (0.80-1.30) L [facility] BUN/CREAT RATIO 21.1 RATIO (10.0-20.0) H [facility] GLUCOSE 82 mg/dL (70-99) [facility] CALCIUM 7.8 mg/dL (8.4-10.2) L [facility] GFR >60 ml/min/1.73m2 (>59) [facility] GFR ( AMER) >60 ml/min/1.73m2 (>59) [facility] GFR INTERPRETATION [facility] --NORMAL KIDNEY FUNCTION OR MILD DISEASE - GFR >OR= 60CHRONIC KIDNEY DISEASE - GFR 15 - 59RENAL FAILURE - GFR <15 Est. GFR calculation based on the MDRDstudy equation, which assumes a steadystate for creatinine. Est. GFR should notbe used for medication dosing. ID Date Data Source [id number] 06/13/2020 07:39:09 AM EST [facility] Name Value Range Interpretation Code Description Data Amarilis rce(s) Supporting Document(s) WBC 13.2 10*3/uL (4.1-11.0) H [facility] RBC 2.15 10*6/uL (4.60-6.10) L [facility] HGB 7.1 g/dL (13.5-18.0) L [facility] HCT 21.2 % (41.0-53.0) L [facility] MCV 98.5 fL (80.0-95.0) H [facility] MCH 33.0 pg (27.0-32.0) H [facility] MCHC 33.5 g/dL (32.0-36.0) [facility] RDW 13.9 % (10.5-14.5) [facility] PLT 170 10*3/uL (150-450) [facility] MPV 7.4 fL (7.1-10.7) [facility] ID Date Data Source [id number] 06/12/2020 08:20:25 AM EST [facility] Name Value Range Interpretation Code Description Data Amarilis rce(s) Supporting Document(s) SODIUM 141 mmol/L (136-145) [facility] POTASSIUM 4.2 mmol/L (3.6-5.2) [facility] CHLORIDE 108 mmol/L (100-108) [facility] CO2 27 mmol/L (22-31) [facility] ANION GAP 6 mmol/L (7-16) L [facility] UREA NITROGEN 15 mg/dL (7-24) [facility] CREATININE 0.91 mg/dL (0.80-1.30) [facility] BUN/CREAT RATIO 16.5 RATIO (10.0-20.0) [facility] GLUCOSE 98 mg/dL (70-99) [facility] CALCIUM 7.5 mg/dL (8.4-10.2) L [facility] GFR >60 ml/min/1.73m2 (>59) [facility] GFR ([facility] AMER) >60 ml/min/1.73m2 (>59) [facility] GFR INTERPRETATION [facility] --NORMAL KIDNEY FUNCTION OR MILD DISEASE - GFR >OR= 60CHRONIC KIDNEY DISEASE - GFR 15 - 59RENAL FAILURE - GFR <15 Est. GFR calculation based on the MDRDstudy equation, which assumes a steadystate for creatinine. Est. GFR should notbe used for medication dosing. ID Date Data Source [id number] 06/12/2020 08:20:25 AM EST [facility] Name Value Range Interpretation Code Description Data Amarilis rce(s) Supporting Document(s) PHOSPHORUS 3.3 mg/dL (2.5-4.5) [facility] ID Date Data Source [id number] 06/12/2020 08:20:25 AM EST [facility] Name Value Range Interpretation Code Description Data Amarilis rce(s) Supporting Document(s) MAGNESIUM 1.7 mg/dL (1.7-2.4) [facility] ID Date Data Source [id number] 06/12/2020 07:50:13 AM EST [facility] Name Value Range Interpretation Code Description Data Amarilis rce(s) Supporting Document(s) WBC 14.0 10*3/uL (4.1-11.0) H [facility] RBC 2.82 10*6/uL (4.60-6.10) L [facility] HGB 9.5 g/dL (13.5-18.0) L [facility] HCT 27.7 % (41.0-53.0) L [facility] MCV 98.4 fL (80.0-95.0) H [facility] MCH 33.6 pg (27.0-32.0) H [facility] MCHC 34.2 g/dL (32.0-36.0) [facility] RDW 13.6 % (10.5-14.5) [facility] PLT 191 10*3/uL (150-450) [facility] MPV 7.7 fL (7.1-10.7) [facility] ID Date Data Source [id number] 06/19/2020 01:00:46 AM EST [facility] [place] [id number]# SURGICAL PATHOLOGY REPORTPatient Name:EVERTON STEPHENSON:1975Received:06/11/2020ccession #:[id number](s) [...] By Gali White D.O. jzwPathology Associates of Garden CityBradley[address] [place], [place] [address]Technical component performed at [facility], Histopathology, [address] [place] [address], [address].Reported at [facility] [place], [address] [place] [address], [facility].This report may include immunohistochemical or in-situ hybridizationresults. Testing was developed and the performance characteristicsdetermined by [facility], as required byCLIA '88. The FDA has determined that approval for specific use is notnecessary for clinical use. The quality of Hematoxylin and Eosin stainsand as applicable, for all immunohistochemical and/or special stains,including positive and negative controls, were reviewed and consideredappropriate.ICD codes: Z85.352ZHI2 codes: A: 39435HF: 85807OG: 20077DS: 41404PG: 26237IR: 25052B Name Value Range Interpretation Code Description Data Amarilis rce(s) Supporting Document(s) ID Date Data Source [id number] 06/14/2020 04:05:00 PM [place], [place] [address]PATIENT NAME: EVERTON STEPHENSONDATE OF : 1975REPORT: OPERATIONPATIENT NUMBER: [id number] STATUS: IPMEDICAL RECORD NUMBER: [id number] OF ADMISSION: 1DATE OF DISCHARGE:ROOM: 01DATE OF [...] We then went to try to do afhgz-wg-gxh anastomosis, but the circular stapler could not be passed fromthe anus all the way to the end adequately or even fine enough to do hrbfb-hf-erji. Therefore, we cleansed the Anyi's pouch once [...] BEATRIZ Nassarictated: 06/11/2020 11:58DT: 06/11/2020 14:00Job #: [id number]: Abisai AlvarengaNOTE: [facility] computer generated reports are not confirmed orauthenticated unless they are signed by the providerElectronically Authenticated and Edited by:SHERRY HENDERSON MD On 06/14/2020 04:05 PM EST Name Value Range Interpretation Code Description Data Amarilis rce(s) Supporting Document(s) ID Date Data Source [id number] 06/15/2020 05:19:50 AM EST [facility] SPEC EXP DATE 06/14/2020TEST ING SITE PERFORMED AT [address] [place], [place] [address]UNIT NUMBER [id number] COMPONENT TYPE LEUKOPOOR RED CELLSUNIT DIVISION 00STATUS OF UNIT REL FROM ALLOCTRANSFUSION STATUS OK TO TRANSFUSECROSSMATCH RESULT COMPATIBLE Name Value Range Interpretation Code Description Data Amarilis rce(s) Supporting Document(s) ID Date Data Source [id number] 06/09/2020 12:00:00 AM EST [facility] Name Value Range Interpretation Code Description Data Amarilis rce(s) Supporting Document(s) SARS-CoV-2 (COVID-19) RNA [Presence] in Respiratory specimen by AGUSTIN with probe detection Not Detected [facility] This lab was ordered by [facility] and reported by [employer] ID Date Data Source [id number] 06/07/2020 03:33:02 PM EST [facility] SPEC EXP DATE 06/14/2020ATI ENT ABO/Rh O POSITIVEANTIBODY SCREEN NEGATIVETESTING SITE PERFORMED AT [address] [place] [address] Name Value Range Interpretation Code Description Data Amarilis rce(s) Supporting Document(s) TYPE AND SCREEN [facility] PATIENT ABO/Rh O POSITIVE ID Date Data Source [id number] 06/07/2020 02:39:11 PM EST [facility] Name Value Range Interpretation Code Description Data Amarilis rce(s) Supporting Document(s) SODIUM 142 mmol/L (136-145) [facility] POTASSIUM 4.4 mmol/L (3.6-5.2) [facility] CHLORIDE 106 mmol/L (100-108) [facility] CO2 30 mmol/L (22-31) [facility] ANION GAP 6 mmol/L (7-16) L [facility] UREA NITROGEN 12 mg/dL (7-24) [facility] CREATININE 0.86 mg/dL (0.80-1.30) [facility] BUN/CREAT RATIO 14.0 RATIO (10.0-20.0) [facility] GLUCOSE 92 mg/dL (70-99) [facility] CALCIUM 9.6 mg/dL (8.4-10.2) [facility] GFR >60 ml/min/1.73m2 (>59) [facility] GFR ( AMER) >60 ml/min/1.73m2 (>59) [facility] [place] GFR INTERPRETATION [facility] --NORMAL KIDNEY FUNCTION OR MILD DISEASE - GFR >OR= 60CHRONIC KIDNEY DISEASE - GFR 15 - 59RENAL FAILURE - GFR <15 Est. GFR calculation based on the MDRDstudy equation, which assumes a steadystate for creatinine. Est. GFR should notbe used for medication dosing. ID Date Data Source [id number] 06/07/2020 02:21:02 PM EST [facility] Name Value Range Interpretation Code Description Data Amarilis rce(s) Supporting Document(s) WBC 8.7 10*3/uL (4.1-11.0) [facility] [place] RBC 4.52 10*6/uL (4.60-6.10) L [facility] HGB 15.1 g/dL (13.5-18.0) [facility] HCT 44.0 % (41.0-53.0) [facility] [address] [facility] [address] MCV 97.2 fL (80.0-95.0) H [facility] MCH 33.3 pg (27.0-32.0) H [facility] MCHC 34.3 g/dL (32.0-36.0) [facility] RDW 13.7 % (10.5-14.5) [facility] PLT 250 10*3/uL (150-450) [facility] MPV 6.7 fL (7.1-10.7) L [facility] ID Date Data Source [id number] 06/05/2020 12:00:00 AM EST [facility] Name Value Range Interpretation Code Description Data Amarilis rce(s) Supporting Document(s) SARS-CoV-2 (COVID-19) RNA [Presence] in Respiratory specimen by AGUSTIN with probe detection Not Detected [facility] This lab was ordered by [facility] and reported by [employer]. ID Date Data Source [id number] 05/03/2020 12:00:00 AM EST [facility] Name Value Range Interpretation Code Description Data Amarilis rce(s) Supporting Document(s) SARS-CoV-2 (COVID-19) RNA [Presence] in Respiratory specimen by AGUSTIN with probe detection [facility] This lab was ordered by [facility] and reported by [employer] ID Date Data Source [id number] 04/28/2020 09:20:00 AM EST [facility] ([facility]) Name Value Range Interpretation Code Description Data Amarilis rce(s) Supporting Document(s) barbiturates screen, blood negative cutoff:0.1 normal B arbiturates Screen, Blood [facility]) amphetamines screen, blood negative cutoff:50 normal Amphetami binu Screen, Blood [facility]) cannabinoid screen, blood ++positive++ cutoff:5 Abnorm al (applies to non-numeric results) Cannabinoid Screen, Blood [place] ([facility]) cocaine + metab. screen, blood negative cutoff:25 normal Cocaine + Metab. Screen, Blood [facility]) opiates screen, blood negative cutoff:5 normal Opiates Screen , Blood [facility]) benzodiazepines screen, blood negative cutoff:20 normal Benzodiazepines Screen, Blood [facility]) phencyclidine screen, blood negative cutoff:8 normal Phencyclidine Screen, Blood [place] ([facility]) oxycodone screen negative cutoff:5 normal Oxycodone Screen AT [facility]) cannabinoid confirmation positive . normal Cannabinoid Confirmation [facility]) tetrahydrocannabinol(THC) 19.8 NG/mL . normal tetrahydro cannabinol(THC) [facility]) carboxy-THC 42.2 NG/mL . normal Carboxy-thc [facility]) cannabinol negative . normal Cannabinol [facility]) hydroxy-THC 4.7 NG/mL . normal Hydroxy-thc [place] ([facility]) cannabidiol negative . normal Cannabidiol [facility] ([facility]) ID Date Data Source [id number] 03/25/2020 12:06:00 PM EST [facility] Name Value Range Interpretation Code Description Data Amarilis rce(s) Supporting Document(s) Surgical pathology study Laboratory test result [facility] ([facility], ) FINAL DIAGNOSIS Colon, polyp, polypectomy: Tubular adenoma. 03/26/2020 - 1219 CLINICAL DIAGNOSIS Colon cancer 03/25/20201522 GROSS DIAGNOSIS Received in formalin labeled "snare colon polyp" is one fragment of hennessy tissue, 0.3 x 0.3 x 0.2 cm. All in one. -SV 03/25/20201522 Signed ALYSIA QUINTANILLA MD 03/26/2020 1221 ID Date Data Source [id number] 03/20/2020 09:20:00 AM EST [facility] Name Value Range Interpretation Code Description Data [facility] rce(s) Supporting Document(s) SARS coronavirus 2 RNA [facility] This lab was ordered by [facility] and reported by [employer]. ID Date Data Source [id number] 11/24/2019 10:27:38 AM EDT [facility] Measurements & CalculationsHeight: 69 inches (5 [...] (ER) or urgent care clinic? 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 He has asked his oncologist their opinion on his ability to work and he feels like they do not want to address this. I have kept him out of work until December 14 but apparently [facility] has told him that they will not acccept temporary disability. The last oncology notes I have are from 3 months ago.He was also recently seen in the ER and diagnosed with DVT in hia leg and he s now on blood thinners.HPI performed by: Daneil Henderson MD, November 24, 2019 11:21 AMTransitions [...] & Plan Problems:Assessed:Malignant neoplasm of ascending colon (DEA65-W94.2) Assessment: Instructions: Offered to extend disability for [...] ElectronicOrders:Adult - Ofc Vst, EST, Level III [CPT-29143] Medications:IBUPROFEN 800 MG ORAL TABLET (IBUPROFEN) One po q6h prn pain. MDD 4. #60[Tablet] x 0 Route:ORAL Entered and Authorized by: Daniel Henderson MD Method used: Electronically to [facility]* (retail) [address] [place] [address] [address] [place] [address] Note to Pharmacy: Route: ORAL; RxID: [id number] signed by Daniel Henderson MD on 11/24/2019 at 11:26 AM Name Value Range Interpretation Code Description Data Amarilis rce(s) Supporting Document(s) ID Date Data Source [id number] 10/21/2019 01:46:48 PM EDT [facility] Measurements & CalculationsHeight: 69 inches (5 [...] (ER) or urgent care clinic? No - [facility] Emergency room (ER) or urgent care [...] during this visit, including review of any nltc-nyd-mypmnzl medications, herbal therapies, and/or supplements.Allergy ReviewAllergy List [...] care.Diet and exercise.Assessed:Malignant neoplasm of ascending colon (FLP37-V37.2) Assessment: Instructions: Recheck with cancer specialists and surgeons as scheduled.Opioid abuse with other opioid-induced disorder (DWT68-R24.188) Assessment: Instructions: Doing well.Continue current dose of [...] FILM-One film once daily. MDD 1. VERENA [id number] ICD10 F11.10 Qty: 30[Film] Refills: 0 Method: ElectronicAllergies:No Known Allergies (updated 11/27/2018) Orders:Other Lab [[id number]] Adult - Ofc Vst, EST, Level III [CPT-46656] Follow-Up Return to clinic: 1 month. for follow upMedications:SUBOXONE 8-2 MG SUBLINGUAL FILM (BUPRENORPHINE HCL-NALOXONE HCL) One film once daily. MDD 1. VERENA [id number] ICD10 F11.10 #30[F ilm] x 0 Entered and Authorized by: Daniel Henderson MD Method used: Electronically to [facility]* (retail) [address] [place] [address] Fax: RxID: [id number] signed by Daniel Henderson MD on 10/21/2019 [...] rce(s) Supporting Document(s) ID Date Data Source [id number] 07/17/2019 02:51:10 PM EDT [facility] Measurements & CalculationsHeight: 69 inches 175.26 [...] & Plan Problems:Added: H/O: colostomy (ICD- V44.3) (WDJ52-V31.3)Malignant neoplasm of ascending colon (ICD10- C18.2)Assessment not SavedOpioid abuse with other opioid-induced disorder (ICD1 0-F11.188): ] Assess ment & Plan Orders:Adult - Ofc Vst, EST, Level III [CPT-20789] Name Value Range Interpretation Code Description Data Amarilis rce(s) Supporting Document(s) ID Date Data Source [id number] 06/03/2019 04:21:19 PM EST [facility] Name Value Range Interpretation Code Description Data Amarilis rce(s) Supporting Document(s) Discharge Summary [facility] LXBUXg4rOaGOLdTz95/EHNcbECSga6FlYMpyBCj0MIxtESNdX3ReRIW3zP1xVJD6XPuKRyDjPmOcJXT2 lbm [file] E+DQogICAgICAgICAgICAgICAgICAgICAgICAgICAgICAgICAgICAgICAgICAgICAgICAgICAgICAgIC AgICAgICAgICAgICAgICAgICAgICAgICAgICAgICAgICAgICAgICAgICAgDQogICAgICAgICAgICAgIC AgICAgICAgICAgICAgICAgICAgICAgICAgICAgICAg ICAgICAgICAgICAgICAgICAgICAgICAgICAgICAgICAgICAgICAgICAgICAgICAgICAgICAgDQogICAg ICAgICAgICAgICAgICAgICAgICAgICAgICAgICAgICAgICAgICAgICAgICAgICAgICAgICAgICAgICAg ICAgICAgICAgICAgICAgICAgICAgICAgICAgICAgIC AgICAgDQogICAgICAgICAgICAgICAgICAgICAgICAgICAgICAgICAgICAgICAgICAgICAgICAgICAgIC AgICAgICAgICAgICAgICAgICAgICAgICAgICAgICAgICAgICAgICAgICAgICAgDQogICAgICAgICAgIC AgICAgICAgICAgICAgICAgICAgICAgICAgICAgICAg ICAgICAgICAgICAgICAgICAgICAgICAgICAgICAgICAgICAgICAgICAgICAgICAgICAgICAgICAgDQog ICAgICAgICAgICAgICAgICAgICAgICAgICAgICAgICAgICAgICAgICAgICAgICAgICAgICAgICAgICAg ICAgICAgICAgICAgICAgICAgICAgICAgICAgICAgIC AgICAgICAgDQogICAgICAgICAgICAgICAgICAgICAgICAgICAgICAgICAgICAgICAgICAgICAgICAgIC AgICAgICAgICAgICAgICAgICAgICAgICAgICAgICAgICAgICAgICAgICAgICAgICAgDQogICAgICAgIC AgICAgICAgICAgICAgICAgICAgICAgICAgICAgICAg ICAgICAgICAgICAgICAgICAgICAgICAgICAgICAgICAgICAgICAgICAgICAgICAgICAgICAgICAgICAg DQogICAgICAgICAgICAgICAgICAgICAgICAgICAgICAgICAgICAgICAgICAgICAgICAgICAgICAgICAg ICAgICAgICAgICAgICAgICAgICAgICAgICAgICAgIC AgICAgICAgICAgDQogICAgICAgICAgICAgICAgICAgICAgICAgICAgICAgICAgICAgICAgICAgICAgIC VqUFOpMWSyBYNyJBUqKSBvGLGdBYLyAXQrLSLhRGJvOAOsTOXtTATiDFNwIFPzZNHgLBJtQCo5N1jkJI NpICZyST8cVJf2Pe2+TRvYWwPeTQT2xiQtmK2RDC5k g7GwGCjsEYLrf4DiKGm1AS1GMWYjVQdzAT0POXeolp5NZUQeEKOokWPBn5ytZhQmUTX2NYIiYmgbWL2P TBPnK0bslhZuBCScAULGXYqlJZUDTWotISSCGCTaQNWjDnQoRNeiCU8Gz8YjuAS1QLz+Th6LXJ9sh0Lc WKefKlAbCW1lzg6HWJlRNdPeA4FhyfN7KTT9PXHqPl 1LFIRhRSTsrNJhAoBaZBPCMfNuG8NgrV02BYHPGq0+ZFkbwaPwWpzIHpV5BZVqb2QpCCv4GA7PLUZkRZ c5oESmCEreP1unvryxUVY1tA3frzxyXwgmEMkePW5hISTPxAbnSXJ0PCU6INioLBHiHKGhAQ6iXt7mHV KfWPN6WyU2NPPYXG7EHVFkVMRreMNqOBHcHYQFDH0K ILxjSAX4TGKiyoBunYWfPZglGH1RAZZzogJwMzXySFVEFSe+Jb2HJU3gc4NuKAkkAMZoLA4qvj9SAUeD ZwFiM0B9sXVtA5N4LJpsBr8DSVQmXIQsQyNbUESOGYoeIC2FAR5mrvV5BB2AtLAaAQMoHWOcmMQiRHn5 W86jnTFdGCpnMZ7OGVN+Naomy+Cl4MTXYmCYEzOIBkXi JyVHZYNhKhV2CdZ2KOf7QhV7BiGY81oDmrujNmFAcwQS0XGD1wCJDxHJZMED3MxENaaA2sdeWjJjKjUN UJHkEyF39ljLRpBHAdCKG4ZPSmBu2TRMXnK3WdnbSskSwwdrMhPABiIYFTFK6OVTumysTxdMPelJesUW 08tJisJK9MOi4TXtLgHQ2hgr8VaSRqCr6PAEMzGX7G AGFkYOIiCGKvIOR6RNGdNzTkLFdtHVDpMIAoNKX5QKQkQWElLB3ZPcQlJGClGKq0VREsBWEaLTVqnd8Q TDSyRCMiCTPfPHBpFDXzKELxMDvlMNCxIFYvZSJ3UNFkUOAgWJ8IOwAqRHRdOUTkWLZhVRVlLVRbjb8P ZBPtWLDrVFA5FFCiKDSnASUqQKerVLIzMTG3WDX2KR FxMLLgUL9FXnAlKCVoAOwyRgZlUHDdFGTvlg8HJTZhNRUoSAZkAQFeYTVqPYPoJYweAJSiXSJzEKA0CR RbQBMoVM2VTzCdBPBjGAPtChjwCQWcIZYwmt2SKOLnYAGiWhG3OVHfXINjRZCnYYfeTIHhMZE0CGX9IB WgPYMjWM7XQtMzXEJhYKC2JPOpMTVwAZMsni0VBYDx HCGvIWg4UURrCDThNSGbAMecKLRnUHT3IrM1DQQqGMMmJA5FRjQpCPZzMEC3EDNoDIIzVULkki9NJSNw WTKfSvIaAXNrNXXqALAtBJzeNSAlDBB1TFx7JURoDMEbJI1KTkGzSJObHJfqWBRfPQIrEXZdsv7TQBSc ZBZwRpS4CVVdWIAlRAVyKUsgCIFvMDD9PSR4RYHzYU ZlLM1DBfHbEVRzFYp9MfkaEBBvVQGqwa9DHWCsNOXzQKmoNNEaWAGrMZMmFKbaJWMnMHC3FsS1IXRqKP McDI0RMmKkVYQnSwI2AqMyAHLkNHAfvh2RQCEyMMYiVJt9KbFhPBQoBWPeNBpwFEFfJPNlJQM0LWKnJT IqHX1SIzIqLTnyPSRGElm5JBtsF3s5HVXxIO8TV8Bp n3UyHtvpJYCRAXzfEG8vanSmBPVnNz0QX4rFWtshXaNpPBKtVLheSNH6EOCuJ4KtIrZ8KGkyDGCnS9Bk YU8qHVLuAJGxCJRvFONuMsEuSCCcLbMoEfk3U4KxYGJeRmB1TjNhBQ2VJb6CTbQ7YZY2pUJnPw3GTdDf YBzNPiYxTQ7YTKk= ID Date Data Source [id number] 06/02/2019 10:47:[address] [facility] Name Value Range Interpretation Code Description Data Amarilis rce(s) Supporting Document(s) Consultation [facility] ILWOWg7eVdNTHxFz01/SOHufWZZqc0OhYBchLJd4OCxnQWDpJ8NyPOK1fH5bEAJ6ETpSFkZgJkOpMMN4 lbm HsMllBSwAlOHPvCvvVGxFuAQmiApddlIXwYC7MdDA5TXDpH49gENCoVAJeY3WyPEBfFXv+Ip3SEYPkjO PrFK2LVswL3Cvhm7m6PM3sGW6IApbqs24dxerQMYH06YZEv72vYY3eJnPJsBsPOml7ENdCXk429LKubV gudfnczxGifIF7V3D7iQrLE1QsJqA//6pBYoMgUMX/ 1vxMchiePt68G0oqvTLOn/QW5xgGKMAXENVB/VsRIwobqmoje2FQiydfb1ymmvxdmWP8pPE34Eq01YF8 udPAXNIaw3gGMjOIhj/97prtSQmogrP5/8yo9nth7tX6ffetWC8DvO9Hy3bcsFPwujJhMwJgitXFoA4k BnczOym9YpmmuoAwGRlk3I8a6yw4uC6rlfIPkqrnO3 Upyz/lUyVKHyzgS5N2xu5MYcMX0qS1f5JZxDJSx0Gjf3/XgKlbyF9Bj7gciqp3c3HvBulmoOg+KAxn2Z 9lEQZxYbygToxqYm/ZO2ntjXWrZcGq6g4S1Nk0vb8Ii5XoknKzaG00Wp+iuHd2svdQcWRfhKv/cSQ3Fc /aJ1ACWsMPQSNGw7/atf6uUO6fvnjuB1tNS0YgjqfX iX76W8ClLlsrST6YLSeLalcV4VmvxqhiXZAJAZ5t22xFj6HzgogAwnpFPDz7zsuEkblRzLm9v69Hnhxa vNroJg9rIozo3lOqXcB4ZA5/aYo1AzeAApoRKd69/zmNaF3J6pvkV8bRoA5cGr5UbOOxLX2qwAbCmF1h L83J07R5fKs55kTtkh5p4HU78gNLU2gAW9HE/Cd10Y [file] ICAgICAgICAgICAgICAgICAgICAgICAgICAgICAgICAgICAgICAgICAgICAgICAgICAgICAgICAgICAg ICAgICANCiAgICAgICAgICAgICAgICAgICAgICAgIC AgICAgICAgICAgICAgICAgICAgICAgICAgICAgICAgICAgICAgICAgICAgICAgICAgICAgICAgICAgIC AgICAgICAgICAgICAgICANCiAgICAgICAgICAgICAgICAgICAgICAgICAgICAgICAgICAgICAgICAgIC AgICAgICAgICAgICAgICAgICAgICAgICAgICAgICAg ICAgICAgICAgICAgICAgICAgICAgICAgICANCiAgICAgICAgICAgICAgICAgICAgICAgICAgICAgICAg ICAgICAgICAgICAgICAgICAgICAgICAgICAgICAgICAgICAgICAgICAgICAgICAgICAgICAgICAgICAg ICAgICAgICANCiAgICAgICAgICAgICAgICAgICAgIC AgICAgICAgICAgICAgICAgICAgICAgICAgICAgICAgICAgICAgICAgICAgICAgICAgICAgICAgICAgIC AgICAgICAgICAgICAgICAgICANCiAgICAgICAgICAgICAgICAgICAgICAgICAgICAgICAgICAgICAgIC AgICAgICAgICAgICAgICAgICAgICAgICAgICAgICAg ICAgICAgICAgICAgICAgICAgICAgICAgICAgICANCiAgICAgICAgICAgICAgICAgICAgICAgICAgICAg ICAgICAgICAgICAgICAgICAgICAgICAgICAgICAgICAgICAgICAgICAgICAgICAgICAgICAgICAgICAg ICAgICAgICAgICANCiAgICAgICAgICAgICAgICAgIC AgICAgICAgICAgICAgICAgICAgICAgICAgICAgICAgICAgICAgICAgICAgICAgICAgICAgICAgICAgIC AgICAgICAgICAgICAgICAgICAgICANCiAgICAgICAgICAgICAgICAgICAgICAgICAgICAgICAgICAgIC AgICAgICAgICAgICAgICAgICAgICAgICAgICAgICAg ICAgICAgICAgICAgICAgICAgICAgICAgICAgICAgICANCiAgICAgICAgICAgICAgICAgICAgICAgICAg ICAgICAgICAgICAgICAgICAgICAgICAgICAgICAgICAgICAgICAgICAgICAgICAgICAgICAgICAgICAg ICAgICAgICAgICAgICANCjw/zBFkS1axxKRhegZ1X0 jdIc1OPe8TWQ9pn3HbDFYnVMhqpuEaGbxWPuQoTXIyQtcQEaw5VGnbTZ0XyOZtB3PjY8UoLLwfZJ2TZZ EvHKGedWHxKXQpHFJcFjI6EYFbDFyvHF9VkCCpLLyfGBJaLRVkKhLtPGLbYM1AVOJcJ546tzRkPt7FVz 7BHuQyON6lif4YYTroBYXtGrmSLnr7JZgcXE7FmGMw yIHtXOHuWXPFLnBnA3dzi2EtBqSqDNFYJJjhKZ8Xx0OseOLbPBv+Cv8UAA0bc1OrGGcfWKEqYA4njx4G IWhNHyLqV4EzwMmcFMRnrjG6fBKpLZS8XAG4IHRyTQIvEYJltS2midXcCM8EVsLgXOOtPM9eJu5jOQHd LWL8ZpF5EIZLKN6XVLCvXGQahKYqHWUbDPLETL6LDL wgEJM7CSPnbxDljUEwFWszIO0CMUKvbrVyXCggSQVDYPf+Wc8RDH0vf2UiNZwsYVKyPL2xln4GYGmKQn RfI5Q9vXVvO0F8GRjnIn7LFGRbJQXvXUvaXSBXUBhxJC9NNZ0bvhE0QA6BuRTyLBKwILSfyAByQXm6J1 8myFQzLJdeNA8NFMN+Naomy+Jm2YGYTgPXNhNBLyPcBr WIEOMzExH6PbS9GLt7AnE0QkCW20hKzuliFdVHlwWY4QHX0fHLLvSUADHL2HkQLppS4rkcRkQOZvMZDP QaNiH63shPGkXDMyANL9ZTFeQm1THZQxN1OdybWzfXcuseWuONAoFXPEIP0BTWorizItmTCnhVcjZZ51 rXnnVI8CCh0JYaEdEH8koy0DwRPeWx9JTEHyNn5WNH VhFWYyQPZdZXN4ORCkIpMaNKpyRECaDRKlUCO0JTKjJUXhEB4VDdDjLUHrOGJ3JKzgMBQgHDMivb1NUR QhGSRmIaK6DEDfHQIxVJJjOKkbPNEwMMQgRZT2LQDbGFRjXN7FJiZfZBRzWTQkEQrkXZWeFDIyot6HBY RmUGXpPzN5IPNcJHOnANQiDSosMRNzBRZ7CqO8URRz QORsKW8WSuDtDHDsQYW4FLJdLHClUZHnml8KTWCjDJEpWxV0JXOfUGHeENErHRwsIJMkAKT6IgN7QQYa VUBjWK6LHyMdNQEdVBr9WRUxGAFwBPQykq0ETHVjDZGpBYevKNFlHLVkQLLmKJcwMUDbCAW7MSH5IWZn LQVeLQ4FYwSbVPTlBUowSSIgODGvZWPywn0VQHRaYT PhPJF6LHYaOGLuWVXnKRpnRXByVEDiEiKeRTXmBYSmYU0FFiBwUYDgGEP7JhArXXDcTNEhla1OAOGcUM ZyDNu0CLTxDBGcDKWhYXuwSUScBECtFFHdTUCmPICwAS5SLpBeHOToOHI3WmAnJPGwGCGbbr0FCUKsZF JfMtRzVMQpUFAgMGXcZQf4yfVkyODoXUb4ZM7YK7Nr ftSnPoAFIk5Vi021ZWGoRUClWx2SB0hdZq1zMXXnOYEPMh9SAMa1L3LmHwdcZTXtDjEsMAR6WoB6XzBe UiIiGvz7WOI6ItE+WNu5WFF5RTH4YUFfJPJ8DUusAMMbVyCoYINwOFlfQoPfPv0kAYAGJx8+DQpzdGFy zKtwNIGIAdBgXNP8HGucCUQLLp3A ID Date Data Source [id number] 06/02/2019 10:11:53 AM EST [facility] Name Value Range Interpretation Code Description Data Amarilis rce(s) Supporting Document(s) ED Provider Note [facility] FMJHYz3wDnXZFnBv07/XQKglGSClz2SqCMezOEy0EBpcVAGoN8ZqLVE9jZ3qIXN2HSeCRsHtUfJkUBV7 lbm [file] 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 [file] E9YIZ2DItaENYRYt1A ID Date Data Source [id number] 06/02/2019 09:25:13 AM [facility] IR IMAGE GUIDED NEEDLE DRAIN PROCEDUREFI NAL [...] injection with 2% lidocaine, for single step kdhw-wxb-yitktu technique placement of a 12 [place]ese resolve pigtail drainage catheter into this collection [...] and uncomplicated ultrasound-guided left pelvic abscess 12 Togolese drain placement with sample sent.This document has been electronically signed by Gio Valles MD on 06/02/2019 9:22 AM Name Value Range Interpretation Code Description Data Amarilis rce(s) Supporting Document(s) ID Date Data Source [id number] 06/02/2019 08:38:17 AM [facility] Name Value Range Interpretation Code Description Data Amarilis rce(s) Supporting Document(s) [facility] VXCCSg0aGcNOFtNl18/NUDewUEAki7XxMAmjCOn7RGemESUlO7VzQIG1bZ6tQQC1VQvDWuKeKiZvDHB9 lbm [file] kvGAKNHti1KWeSYaLzVJ4KPDt= ID Date Data Source [id number] 06/02/2019 09:54:50 AM EST [facility] Service Cmnt XXX-Imp : Gram Stn XXX : 2W BC'S Seen.2Gram-positive coccusin kaika2Dksu-kdanhwst bacillus (organism)Microorganism XXX Cult : 4Escherichia coli (organism)Organism of questionable significance. No further workup as7Wuvhxatvlqwua [facility]inos[facility] Name Value Range Interpretation Code Description Data Amarilis rce(s) Supporting Document(s) ID Date Data Source [id number] 06/01/2019 06:20:06 AM [facility] Name Value Range Interpretation Code Description Data Amarilis rce(s) Supporting Document(s) Leukocytes [#/volume] in Blood by Automated count 13.7 10*3/uL 4-10 H [facility] Erythrocytes [#/volume] in Blood by Automated count 3.45 10*6/uL 4.6- 6.1 L [facility] Hemoglobin [Mass/volume] in Blood 10.3 g/dL 13.5-18 L [facility] Hematocrit [Volume Fraction] of Blood by Automated count 30.6 % 4 1-53 L [facility] Erythrocyte mean corpuscular volume [Entitic volume] by Auto mated count 88.8 fL 80-96 [facility] Erythrocyte mean corpuscular hemoglobin [Entitic mass] by Automated count 29.8 pg 27-33 [facility] Erythrocyte mean corpuscular hemoglobin concentration [Mass/volume] by [facility] 33.5 g/[facility] width [Ratio] by Automated count 14.2 % 11.5-14.5 [facility] Platelets [#/volume] in Blood by Automated count 969 10*3/uL 150-400 H [facility] ID Date Data Source [id number] 06/01/2019 07:04:07 AM [facility] Name Value Range Interpretation Code Description Data Amarilis rce(s) Supporting Document(s) Bicarbonate [Moles/volume] in Serum 23 mmol/L 22-29 [facility] Chloride [Moles/volume] in Serum or Plasma 102 mmol/L 98-107 [facility] Creatinine [Mass/volume] in Serum or Plasma 0.60 mg/dL 0.70-1.20 L [facility] Glucose [Mass/volume] in Serum or Plasma 88 mg/dL 70-140 [facility] Potassium [Moles/volume] in Serum or Plasma 4.0 mmol/L 3.4-5.1 [facility] Sodium [Moles/volume] in Serum or Plasma 140 mmol/L 136-145 [facility] Urea nitrogen [Mass/volume] in Serum or Plasma 9 mg/dL 6-20 [facility] Anion gap 3 in Serum or Plasma 15 mmol/L 8-15 [facility] Osmolality of Serum or Plasma by calculation 288 mosm/kg 275-300 [facility] Creatinine/Urea nitrogen [Mass Ratio] in Serum or Plasma 15 [facility] Calcium [Mass/volume] in Serum or Plasma 8.3 mg/dL 8.6-10.0 L [facility] Glomerular filtration rate/1.73 sq M pre dicted among non-blacks [Volume Rate/Area] in Serum or Plasma by Creatinine-based formula (MDRD) >6 0 [facility] Glomerular filtration rate/1.73 sq M pre dicted among blacks [Volume Rate/Area] in Serum or Plasma by Creatinine-based formula (MDRD) >60 [facility] ID Date Data Source [id number] 06/01/2019 07:04:07 AM [facility] Name Value Range Interpretation Code Description Data Amarilis rce(s) Supporting Document(s) Magnesium [Mass/volume] in Serum or Plasma 1.8 mg/dL 1.6-2.6 [facility] ID Date Data Source [id number] 06/01/2019 07:04:07 AM [facility] Name Value Range Interpretation Code Description Data Amarilis rce(s) Supporting Document(s) Phosphate [Mass/volume] in Serum or Plasma 2.8 mg/dL 2.5-4.5 [facility] ID Date Data Source [id number] 06/01/2019 12:28:17 AM [facility] CT ABDOMEN PELVIS WITH CONTRAST [id number] AL RESULTInterpreted by:Russ Sanchez, MDPROCEDURE INFORMATION: Exam: [...] rce(s) Supporting Document(s) ID Date Data Source [id number] 05/31/2019 09:34:12 PM [facility] Name Value Range Interpretation Code Description Data Amarilis rce(s) Supporting Document(s) [facility] CCKAHx5kGaPVIySjt5KeHrCmWFOaAN7hyfb7Q8J0eJXrY6SaxJDhk8jdU3JrM6MlBEOiUGCRFM7MyXLt jb2 [file] 34RwonMChRMVzlDu+9XIb6y339XES9rPC8Lgro+elevator installer 0I/+NMZ6v/gOJEljTp6v/ZvAGFN4JSRHF1600gzYQ8EtXaw7xvcnSNWLKNKLD7ad7TK3W18mtp9mbxho RL3bWUyy0q5rx5626XoiOEPtePT3FINjB3yrIvoVO09OHbgyTu4g3amxk+xriPenC15MACIpeTI6sOoF VRZIaKNvL0mnjUI0W7xWVr3tjGHE3yLwKGRiB/qBXx c1rVPYI2K7196chtlQQCF2EOrQGrtU9lmDKhDEnTu3FATn9ABMBJHtejwuq41afjjA0mwSLsDiaWQrCH oIp8nQjS547oo/u+alv2golqrx+CeCVGQrnVavr678gL665VaTAzxQKSnbJIB4EwE3+CNWt4476gZKTS 91tGouMXycAAuKqoQs7t/ckpGO0syJrERaTCaimGwS oPVRdKONQ3bLAq848t60hgdXGjYG3D2Kp39zsOmRwWHxzuNqml976HiHC+U4WcJv9uE/RXG1fnzhXfS6 2M5M523f4poxv3iQVZ6MAiDuRCTUMW3pyWjxp4/P8E37A1ik8+baLcdx+LUe77S+gcinpOOFHnXZT7/n Q9q6HlN0yWT55MFEfBslWqV7fXudFYAXMlcjGiIsPR 7BUF3HZay8Yo+40xbGDeXdy7VqHOyHBWwTLPW4Khpaj0hezAruhZed+5QVdbFIKv4z2xIl823x7NF3b9 w3JwffvmzIrvKwbpegRwmzlw69W7TtR9IayPY13iQKeGrgGph/O+szn1jJ/guGgA9QzC/WHK6h6cL6xl Simon+xoC9gO1O8pzGsGFbW6MXw/KUXkiIg4e2u4Tj52 [file] CRISTY+N5TqFVIan3AR6DpSwLuHKuVEQBRaBKtgTxhxis9qv0f0EKb7+owuOS6ZnmpdeA/vfxkZk7x7b0W4 gQ4Cg3ze1rzLS/Vr3amnSIwHyFSEoewTJCN7MR1zC0 fZgWGugahdH8bhnEfCLmyizCHZYyolmlOFZKFzNLue2ixgDmKz1jNkFCGxRl3nhtXvmVOPJZrELLQ2hh dgUWX3ko+2duS6VGy948IQNWCToTeO2zv912Q+k3Lft/u6y2DEUw1Zs7wJRIwyIGsuSG3zIUztbVLahb V7uWLz1OBABLz9VdbV38Q4Q/BtEerM4ycKB+IH0ekT +6UtcWNNzV2pRABTBwCbKGDpxbspU0hcVHSeO9miD2DgNdtzHzzOhWHNIzxBN3BsdXQW/UA6R6tAWGt4 ZyXiAFDwBQhwHTIktgZdUphgp1rSgH7wstLxSC4r+cSYxAeT+VZ4px4t+V9BTx5T7aOMbziIGnSOUN3z D/MCi0N90t/soD+VU9HVPywR1nzNT+Q4hpL+2bnvbz 2IH/QobYZpNYd9BBzvVmpwiVORbnhWpLLDrtbn+Wfnvm/rDiIHhAMRNvz018FihwhQvcu7pCp1HIFzv9 EOUrCeYAsQQ+u479lf0VO3NH4KYtbmwkWIhfbjanD0hIPR1rXfx5jKYDp86tJbec4719RpbdOZon5O6Q 1lzto1F2AJ1LHlsMr3+RuKK/X9k/cha6dJpc+hKWxl [place]/n8/uCLwPR1Hj4d12Fsa/4Pf/+ngvreu55rsvNV1D9//ycecbx48nY/fV/hJv3gmb/uUawoekk04Kx 8+38d1Tfji0Yg/ErJ1R+/5Wf/Yz2/KQrCaS1qwwoB5M3U7wI1e0/nb7L/HG1h6aSlf9k/9c8y3jmR/wn 70hOaT/4Wifbx9aMw2pdT4//cFkBRW3ila43Q2+f0Z 5Ae5a8/eNyup5CG86uC+8xyN88vpzgRUbmi1G9ovsiE48Puv8Qbfdu+60Bdn/8krS1dx9UrQ/mUwf2hA 4sq3+rn3+/O4WwrG2GR/9+73pe/TsePf9+H/r9J+/NTk9vKmq/v7xYhcb/fX+g/Hnsp6B/f5h///6D/L ttP8S/Jph/R7Z7r1lmgaanlm/2qeL5sxtY91v/baf9 dD135lUu1zyb6X31Nfp4o73j79bLwY8S4u/v06RoOaheyrKMDO0+bOnop+Vjhy0f+1mpmYiYKpoE1dzp 4d12enD1XO8S4rCVH2Ukf3u/30pM3/ik35iDB4y/NzCVRj1so5yXExJ15GI35gitWUTrh9ptFTqyUyp0 cpzkZi77Wplj8roV9nbMDA5IuxC5oVCei44Z/FUMtG ze5Q7k693k4aHNAnV0b/N+T0c/OgG3gQIQ3X7nTr+26qj0b41ab3Ngnq6Gu8l71sQ3NCzm86ihp4xk8R v6bQcHIjv9rkg1AwODY8dYzFje17Y4T/KOivIrfod/Hg2/E01IdRkqEDT4vUQ/DdjzWPJmP/9+L+t5Ps kAvqjJb3sM6/Aa4Ivqi0G33sr/jjRAVzz2Hrsmaer0 bg4E5cY0IBx5sNcaT4Vd747mz7XiFfg3y8lr7/QnL7lna27Ler+8TmvcpjAWsj7o/HHb/7grt63J9pjG 9f4vW8izQr8Qjqknltc/vqzuicl2CT63M5027RSyM7wu2iaSSX5+M/D+rThmbfH5HT2juTKYdLouTq3f 2z7LXiufzv1qeqAnVerbi41BJ73kq5+/Z+GronLaay x2slc6Z4/m19Pft1GR9n7s+Gq35/TvSg9/n+dvQ3b2gfZJ+Ac9E29ntghHe1Lc12eWVkyaQKc76m+s38 vsU4YElMJMnzpcbDWx0ehgy/UXV34q1Ss9iuc0zAwK4n41/hgSNfD2ils2dmZIC+hKDoJ97IbGAvYNBX 9WDngoardSwN/uq7d8fOhMbXsP29/K/76mZri2v8/y tsJovnq9UK9xgldn3ecKm/LWfv5w29gsOU//wswYAUt667xp/VOfACI255PX1P4boCU+u16mxNAV9yq9 9z216FCjlgCLzPtnoBXKSwg+Bko71EUpIOh3lctuZYrt5W7H974dH67u+H0cv/HDV3/g0WsBX33eQvd3 49ytpC2dQB/T6nKLf5ruhgJRK62lhLiEh2qYe27n2b 5D7//J+zcfK+L66TrwD4Dqtkk+O/DvTq5B5A316RYCC12SyPItpP5kabJ9zR95aXJ1c76k+lfvoH+Fr9 z8uasDkwYaY65upqmojWq/LXzlcha+9cRA9JqYN08PM+5qrugs2dp8k6F9I49I5tWK5/Knw0Nhkjj09h Pklf9c+Vq10hqxXI0FSywVk+Lg3Sol3SPtOwaTL4Bx q/9Alvi8xgDXhwj8QkgXjxdwdnXbDM/CV+1N1t5+DdqziLsmccUwfXQbVN53+pvti865dtJjntig3Kg8 ndZxfcSe245PurTdOl2m+xe+nk5EAsRq+Go/1+V4Gq5gk8PgDJqraruI9QKnvBOg5GSLymr9tsRP5PXy q/0O/JOBt27RvqLa9vybXgnH4J3XTeV+auGr/W05el 63jd8jH5dRdocBUzC0bR//vPDVbg/6d/bj/xe+7s5hB80H+Srm1Exy/nh7541cPhv1pnEGxXgHDpZk/7 2tY2tR29h/K+le4q2xq+t/1IlzootLsuXgFjht30m88tob5w2l6xKwqWcC5oDxk5j/wzgscIE4XsD6e0 mF9gr7qCCB+Oc07WR1rEPGSh04LeQEdhXWhN1tQNsz SQ+geR5ZpP/U/qF391wovx0/0driu0rhaK5Znb+x3i15Bs/az+28M08/Dag4Cn78ahus0tFq8f/AV0X4 6nmzqd/fy+jN0AsBY74e1iZ/t/NtoJw4/v0azbf0EiMtvgY1xHUIRE4oACRf2MyQJ4K9ngl4NovS+Erl C18p+Vr4yt/u718U1haf25HWH83K/6y0aY/TInylBP YFy0lKdq040fcT3Eyws13QohybpEopyDrAvgfsA+ysAo0NzT+WP1+O3bcPQ8B8e2gAiNRDmJ0Ti/CV5F z1gtkpF94RH+1n9G+ZrPIwt6X/6/FQHwu4RK/g/XHsU/Rz4PCKR3ndFG8sLrMHum3dymbY4/Hjc2LxyN EckIasREn518IAF4eAbr/er3OzjC750GRYrG0pmUMa G/pX+EpytRPPWWnQ7/vz6Ked+JmoPF16yi/ys7Jwwq+L9Ryy2zhBp6QQWLqgywg90i9BM/4txld+Pv0l fCU7D/Hh1WST2qm4QG9ThM1Mxh/kf+EZ91orZ7cBq30Lb1OgXT+VtmuJl1O6HaHkoDH2qA/r0UOv+H2t B2Kbdz66BqtTXmL+7rk4rFmJT8Ia4XP6+jqV4MOfH+ WxcRp5KbroIv+Xcda/RfErXZih+GN8vJzGyJrmS6p4tGok9K+II0mrltvsXhu/8gNFH5Li0s9A7Uv3tq ALbi2WkammXj6c0V+HpxdK39j/rjTm/c3exzhpT/v57KE56j9TdBcirIBI+YkCP0u8ju+zw9tm49yi3d 2c8FcT/tdlCgma8w0/nC8mdXY6Bia+8r0qC1/ZTha+ wu1twNUm9HlKvc/SU50PwiB17pcCDp+v/dTnrI+s0XRapWy2oBHw8Foq7Atn+K2LmuIBaVtZ4XEUjv6s TYu3S27M+5QT2UrEs72oJeI+oPL3vD/46PmUr/9UhYi5i0sXvguUwi0O3SYX/sJXGpsrL/l9/6wHazrr jZu5RDdoVv25jGUx8vydZpweT8K89/LJhqpRIOo8Ry EbhCysY20UzqXdN8//3HQNj8BW4BoDaxEi0UpgMLP9lzjSGcJ/3O0mdcA5/Alcf2W8z1835iubY54lux 80rzbB0y6dIP/BdwitibAH4xJuAOk8+K/DiSc8u4g5Zmk26xwKb7i71Y+sxONtM+OrwCo4rbGNtg0i1i 5nc3Woj7WGmu2UgqS8S6fi874Vq/R25fFrN8p7Tb/g aBf5vABLogpCXl2fz38z+oeq+JUS4hS/wv1P1dhFuw4V29WCAazO4gsm+qkSF4B5BugNprhoj0mKaaiy b1P0OsT3I4vYB3bfnMaF+Qav1HWjfsfv5fxmcAJXujmDZ4L2/HMVvpJtC1/JloSv/H4+8ZehoA5Vp1Im 0aGZ2f4+ohBPwv7vjsJAb4aE4fp8m3LzSQFYx2SHks wytUqRapp9C9tk21TNJbLRNKcXSh8Yks+cdHvW+8O3o7CCfLr8Ihm72DirKOtas1ryVQxRe3iP/LPwVf Yg4MWzmzgZvqb+Si0KF2nemDzuI+Mj0p07l9i/UPm2Z3+j5kCevQcwHKNh9kw9HnvSK7afN/F6Jo8XPq 5c8l4Bgu90s3B/sGJ/vVeR1wsqW4Acptldomr+8rP2 B/XOwle+qbUq776PaomNxP3r/vWo85dlXzr9/X31r+a4ha/272c/LPKAw93pVZSwAtmksKjNO76b0XXg jt/Upqcdygsq19p5Lh0Ymo0pGpyLIfvZJryUUraUYs2WTlblM/rbJa/i38Qi1Z1Ldoavqly8rnP/VLU/ 6OdAe+Hie477hvt9Ffbkfqt7NINi7Lp88q2Y/Ko9Z3 +/KX6l7B/Fr/z7seem+BRuOm8i/5b0X8z3pewjU4yS4CnrO2P+vFLbHjyOpgSKHzb5PoEdzwVg5suA+M scFBz88ri8/xmliZ28iu5lhP0645YX1lM+seej7918oai3Qtz0iAz1uNUZh6/VdP5q5/a2ve/QtD+4n9 urE5y/njxqrP9THz4R0NtFa3f/LX506XsxAZ4sNkus n/jhn6jnS8o/NewPNsWvZA/01R467ZzmNKPj/Xz0r/iV36/4/fjYWjCNLg5qqHfQdPSc1N7k+ewvrJzd t/8I9ji4t6/PfkpT/GphqlbOfmgrCb+ny1Abgr5whvcJi4tB1wW1+qUc/4hU1l8rkmlbzp79Su3n0/H6 28rNe5ZXfelxk8YUhs0qpGwEma66U7+1vvZd2t5rjk /9N1ADPh/Cob9mIlj0DJhfbkloIqvLG08jym3Pu/ZhP3h99S+udNy3/Y34NjvMW/NvU/eVfFT0vSfnUo zRGsZvO/BMHoyXBeg2O/3a5Vfulg3hv3VJm8/63n9fM4S2T/8tgu15Wt444hcw/Yzfz/5+0/kr2f/CV1 o7rKTb/RznPMNKufXcsTJuPT+8OLzHBpe0qmI+kn6E r4qfT7/o/JV/grujJJhIwx7fVl0gDiu9o8znid8mt2qwaNX1J65kyH48iY0pJC/VhK9kY/2pQ72jAaH4 qjeL8oZ+Ly/+b/3Ec1o/+5Put9bptpo3Xz0ED0SU+4NN+Eq66h2/y3IkXN9RM/k65UOOAO8lpyJq/NVO sr5ms4Q/07I1v6L4IchyHZd76OzTA1yrqL/bwPgdZz +lYX+eHZsycj3M/Mitzy+Ktx9o/aOPsLTfErywV/SQ43ij4d/8wcRd8sWQhyccYvsGvc3lmKS771SPKkxX me3izKd81lmG3++Ko/ye4lZk1pAv//kcantqAc8be6gRWws+hnV89iZXThrhnZ+MNX/Crispin/1aabG/S82 +2Yj7cpuDqy1j8rt09OnI6+12Jc8/Bk/Tl6W8jkaBV r5K+Es62McJhvP3qCStf4pXxVCtxCpBnZrM1i3hW+pdid03Bt+O1gs5opQ8s02f2TMML+n7s5HatwYiP uWVkta41i5cT1+d3/wg1rurRvw6BKhCFCEq7Wgf+oqitp92Vkq/5d+136/ilO2Jkd+UTQvGr/Ka/bl0J XykJTfhK3+JacdQisT2dk/Vg5DP/Rj54I/W6Ktg8gg L4kE3U4PvtIzfOxYP56EpflfParv+h81f+jA82RqoVX07EjR9GsB2E2Ml5khMAIMtOFuC1cgkE+Mrv5N NpocLG8nCGp13n0uwi0quljWKyHYNo4vgElBS5580oDu5vv2qruNhXbSw25Sv8pmMH+Er2WY9/Dp1vdw JcxhAI5Vg91ZGp8iKzza9gbdz3+03l9453vgdfRgfJ 9az3Q/xQtbLpT5T7+Qsri/Vtm+NIRMZrE5y2EG/W6zV8Jcoz6n+e5/oGuZHp1nege4xq1/Denver/tvklfP kFf4yr/X4w+Yd3SOHY64V20g04w4lr/CV/G3XE6iaphl25A6+NriOWYr4BTN8wODGQYF+JbeZfq9nIaS iRPfWFmqu/1x4huh+AKQQsyYm310+75fBsYcy61chy DAMDJPlQd35IDJ5oh6+0cR8M/PT5Xtnk1ctTPLGD9/8ZyVlPr+gy61p8tgh/yF6PBX/cy/Kx31/wong/B BKwP3M4t/9mqYl1K9+8hein/nB9HInR7EW/mqc/ZTQ/uJ8hBv5otrHm+zVei8sJS5HXl6i/LMejHHWCz FO/iRHp14Wtc/28+rxaiPp1UzRvCsyimLrdsonCej/ tZ/eO5nqdSR1r62rpWJ/Hzp/JZ+p/UHVO89+McxmGlmyh0mt90l5rVBZIodEboRarVt/O+G2gbJ1lhFg uVaI204iH1/BqvxrdB7R+auO+FX3+av+riFR0oy+mYyIu320hH2Q1n4t/ZT+pTVVIvUorlll4r5fE72/ 0V3kLpotzeFSc/w8UM5A+Sf+3IWvVn/2eHy3fwief3 7OeaSezvzbEb/h8kh597Mepqs75eJfXY227FzvSl1L/pF+opiS0EPXWs7t8C2ZN10p26J9P54SeZn0ep +b6Ghqp9+MUY+mxVI9Jj/8XZ7xnhBPv5twDm5/7Pmc5+/CV+ikcO18CnXPrIo04aY98tiQhm4yYIqX/R 36bogq92rzO+y7e51Qh//afF/3qhiRvcr9r9kfecJE Fkeps+s+j/k7nFKQxFOXtiy9IgdIFz/3IZ0yhUKXbn/9X84qdzC4n6cTR7h295tt/o54DsTM9N7YHrFv /SItPi61Zm3N4mY+jvjFg1n64fvtThrf+Hxd3x7Pw1RnX1ZJ/eo3fZ3VUZrp78M5TriEmvg0f2ytz0tC FjTpQApp/ygcIYMggriGPEymvlAwwkU0NCU4OCundH MOpol2/fL1oy53AQ7nz3G74eDLdtKbrJe+RergZtz5Cg4K52s16uFfvr0fcWycP3YHFWJM78VsNzPq7O aERfaBJiw9lCKS/HRQpix+2ouAivi99ZXkemqFZa93LWW80aGRCxH5D220XJCdma1gHMG/bG7i73Ry9u hqnLeWdp7l0/ghFYHBQ2Ox9lo9BQdWgFz2ilgL9tMH n8O90hrnooR/xNJBkaTrPo+/5omUCjaUmk3MkuqHB5cEZxh6+kJVa8AlExTcl+y9c5mQXGXk20WM6PhJ feH6EUlEUdH78aENuWZrLWHZAFeBv8WZHvwV7DERL1Eyq8VA/EywoTNr5GMFNT3JlqZ7Ioi86PIkDjpR B/RLT6lE1DaYPdCgbWy+cZQ45CRkg4/UdVJOkY1ygK Zmg9+ZnsE39IgLRQrN+N3XZ0lD0kpCIlEAGtplKT/Q4Ac6jza3hsdVucJ2WCjXTUK/rG29YJ0wiySW3b Njq5uqRqShhTxeFe0FEUyJflEyqM9q1uAIxtaZxR2fAo2+gbj6ZmB2Nk26oiFXjqDVEPAPGpupZyl/VÍCTOR [file] AwMDAgbiAKMDAwMDAwMDQwOSAwMDAwMCBuIAowMDAw NVTjAVRtLMRyEVCpNL5tGzPvKRBiSOH3KHMlIDCzEMTusxLXGTKjZIXyVFh1IHNiQQLoHORvUJzoZJZc TXQvGQQ0OWAcNPBlLC7pNzCzPOHfKEL0JyWpXONgIIOvhsKIXWNrZPFdWDR8MiIlFJAjDPUaSHraQPIv AGHeAXrkNBYmYEZaQR1gDtDgRKXtAECoKZvvONZhFZ WiiiXGRNIlHMXgRTNjMeFfYFEgSZTeEJjkJMSmBNydTPS0RMOzHYXlPX8jKdZhOVJaPAN0YHwvYWRdUT NugfTTTBHlXZEnMLnsCYAkOHSeECSdILomIIIdAEUrFYQ4OVBuKWZbZT1aPrPqXHNiJGTlLCWoGjH7Fk FnSrMBuYZcbOluuyh4OGrfS1l8TVOgJBjjDQ4pdlFe BLWrKtmhKv6rtTF8LXOgTujYAq3Ys5UpovK2ggFiGge9TSYaOwQpTQ3G ID Date Data Source [id number] 05/31/2019 07:54:38 PM [facility] Name Value Range Interpretation Code Description Data Amarilis rce(s) Supporting Document(s) Sodium [Moles/volume] in Blood 135 mmol/L 136-145 L [facility] Potassium [Moles/volume] in Blood 3.9 mmol/L 3.4-5.1 [facility] Chloride [Moles/volume] in Blood 99 mmol/L 98-107 [facility] Carbon dioxide, total [Moles/volume] in Blood 28 mmol/L 22-29 [facility] Calcium.ionized [Moles/volume] in Blood 1.18 mmol/L 1.13-1.32 [facility] Glucose [Mass/volume] in Blood 84 mg/dL 70-140 [facility] Urea nitrogen [Mass/volume] in Blood 11 mg/dL 6-20 [facility] Creatinine [Mass/volume] in Blood 0.5 mg/dL 0.70-1.20 [facility] Hematocrit [Volume Fraction] of Blood 34 % 41-53 L [facility] Hemoglobin [Mass/volume] in Blood by calculation 11.6 g/dL 13.5-18.0 [facility] ID Date Data Source [id number] 05/31/2019 07:54:38 PM [facility] Name Value Range Interpretation Code Description Data Amarilis rce(s) Supporting Document(s) pH of Venous blood 7.38 7.36-7.41 [facility] Carbon dioxide [Partial pressure] in Venous blood 46 mmHg 40-45 H [facility] Oxygen [Partial pressure] in Venous blood 29 mmHg [facility] Base excess standard in Venous blood by calculation 2 mmol/L [facility] Oxygen saturation Calculated from oxygen partial pressure in Venous blood 54 % 60-85 L [facility] Lactate [Moles/volume] in Venous blood 0.8 mmol/L 0.5-2.2 [facility] Bicarbonate [Moles/volume] in Venous blood 29 mmol/L [facility] ID Date Data Source [id number] 06/05/2019 10:35:48 AM [facility] XXX-Imp : Microorganism XXX Cult : No growth (qualifier value) Name Value Range Interpretation Code Description Data Amarilis rce(s) Supporting Document(s) ID Date Data Source [id number] 06/05/2019 10:35:48 AM [facility] XXX-Imp : Microorganism XXX Cult : No growth (qualifier value) Name Value Range Interpretation Code Description Data Amarilis rce(s) Supporting Document(s) ID Date Data Source [id number] 05/31/2019 07:19:33 PM [facility] Name Value Range Interpretation Code Description Data Amarilis rce(s) Supporting Document(s) Leukocytes [#/volume] in Blood by Automated count 13.6 10*3/uL 4-10 H [facility] Erythrocytes [#/volume] in Blood by Automated count 3.46 10*6/uL 4.6- 6.1 L [facility] Hemoglobin [Mass/volume] in Blood 10.2 g/dL 13.5-18 L [facility] Hematocrit [Volume Fraction] of Blood by Automated count 31.1 % 4 1-53 L [facility] Erythrocyte mean corpuscular volume [Entitic volume] by Auto mated count 89.9 fL 80-96 [facility] Erythrocyte mean corpuscular hemoglobin [Entitic mass] by Automated count 29.5 pg 27-33 [facility] Erythrocyte mean corpuscular hemoglobin concentration [Mass/volume] [facility] 32.8 g/[facility] width [Ratio] by Automated count 14.6 % 11.5-14.5 [facility] Platelets [#/volume] in Blood by Automated count 962 10*3/uL 150-400 H [facility] Differential cell count method - Blood [facility] Neutrophils/100 leukocytes in Blood by Automated count 69 % [facility] Lymphocytes/100 leukocytes in Blood by Automated count 17 % [facility] Monocytes/100 leukocytes in Blood by Automated count 13 % [facility] Eosinophils/100 leukocytes in Blood by Automated count 0 % [facility] Basophils/100 leukocytes in Blood by Automated count 1 % [facility] Neutrophils [#/volume] in Blood by Automated count 9.35 10*3/uL 1.8-7 .0 H [facility] Lymphocytes [#/volume] in Blood by Automated count 2.31 10*3/uL 1.2-4 .0 [facility] Monocytes [#/volume] in Blood by Automated count 1.82 10*3/uL 0-0.8 H [facility] Eosinophils [#/volume] in Blood by Automated count 0.04 10*3/uL 0-0.5 [facility] Basophils [#/volume] in Blood by Automated count 0.11 10*3/uL 0-0.2 [facility] Nucleated erythrocytes/100 leukocytes [Ratio] in Blood by Automated count 0 /100{WBCs} 0-0 [facility] ID Date Data Source [id number] 05/31/2019 07:39:39 PM [facility] Name Value Range Interpretation Code Description Data Amarilis rce(s) Supporting Document(s) Prothrombin time (PT) 13.9 s 12.5-14.9 [facility] INR in Platelet poor plasma by Coagulation assay 1.03 [facility] Routine intensity oral anticoagulation I NR is typically 2.0-3.0. Target INR must be clinically individualized. ID Date Data Source [id number] 05/31/2019 07:39:39 PM [facility] Value Range Interpretation Code Description Data Amarilis rce(s) Supporting Document(s) aPTT in Platelet poor plasma by Coagulation assay 33.4 s 24.0-34. 0 [facility] ID Date Data Source [id number] 05/31/2019 07:47:27 PM [facility] Value Range Interpretation Code Description Data Amarilis rce(s) Supporting Document(s) Albumin [Mass/volume] in Serum or Plasma by Bromocresol green (BCG) dye binding method 3.0 g/dL [facility] Bil[facility].total [Mass/volume] in Serum or Plasma 0.2 mg/dL <1.2 [facility] Bilirubin.direct [Mass/volume] in Serum or Plasma <0.3 [facility] Alkaline phosphatase [Enzymatic activity/volume] in Serum or Plasma 77 U/L 40-129 [facility] Aspartate aminotransferase [Enzymatic activity/volume] in Se rum or Plasma 9 U/L <40 [facility] Alanine aminotransferase [Enzymatic activity/volume] in Seru m or Plasma 10 U/L <41 [facility] Protein [Mass/volume] in Serum or Plasma 6.1 g/dL 6.4-8.3 L [facility] ID Date Data Source [id number] 05/31/2019 07:47:27 PM [facility] Name Value Range Interpretation Code Description Data Amarilis rce(s) Supporting Document(s) Bicarbonate [Moles/volume] in Serum 26 mmol/L 22-29 [facility] Chloride [Moles/volume] in Serum or Plasma 98 mmol/L 98-107 [facility] Creatinine [Mass/volume] in Serum or Plasma 0.59 mg/dL 0.70-1.20 L [facility] Glucose [Mass/volume] in Serum or Plasma 88 mg/dL 70-140 [facility] Potassium [Moles/volume] in Serum or Plasma 4.0 mmol/L 3.4-5.1 [facility] Sodium [Moles/volume] in Serum or Plasma 137 mmol/L 136-145 [facility] Urea nitrogen [Mass/volume] in Serum or Plasma 10 mg/dL 6-20 [facility] Anion gap 3 in Serum or Plasma 13 mmol/L 8-15 [facility] Osmolality of Serum or Plasma by calculation 282 mosm/kg 275-300 [facility] Creatinine/Urea nitrogen [Mass Ratio] in Serum or Plasma 17 [facility] Calcium [Mass/volume] in Serum or Plasma 8.6 mg/dL 8.6-10.0 [facility] Glomerular filtration rate/1.73 sq M pre dicted among non-blacks [Volume Rate/Area] in Serum or Plasma by Creatinine-based formula (MDRD) >6 0 [facility] Glomerular filtration rate/1.73 sq M pre dicted among blacks [Volume Rate/Area] in Serum or Plasma by Creatinine-based formula (MDRD) >60 [facility] ID Date Data Source [id number] 05/31/2019 07:43:23 PM [facility] Name Value Range Interpretation Code Description Data Amarilis rce(s) Supporting Document(s) ABO and Rh group [Type] in Blood [facility] Blood group antibody screen [Presence] in Serum or Plasma [facility] Blood bank comment [facility] Procedure Social History Code Duration Value Status Description Data Source(s ) Smoking 06/07/2020 02:13:00 PM EST Daily Smoker completed Daily S moker [facility] Alcohol intake 06/01/2019 12:00:00 AM EST Lifetime non-drinker (finding) completed Lifetime non-drinker (finding) [facility] ital Cigarette pack-years 06/01/2019 12:00:00 AM EST UNK [facility] Cigarettes smoked current (pack per day) - Reported 06/01/19 12:00:00 AM EST UNK [facility] Smoking 06/01/2019 12:00:00 AM EST Heavy tobacco smoker comple bryn Heavy tobacco smoker [facility] Vital Signs ID Date Data Source UNK Name Value Range Interpretation Code Description Data Source(s) Deprecated Oxygen saturation in Capillary blood by Oximetry 98 % Normal (applies to non-numeric results) 98 % [facility] Body temperature 37.6 jana Normal (applies to non-numeric results) 37.6 jana [facility] Respiratory rate 20 min Normal (applies to non-numeric results) 20 min [facility] Heart rate 95 min Normal (applies to non-numeric resul ts) 95 min [facility] Diastolic blood pressure 87 mm[Hg] Normal (applies to non-numeric results) 87 mm[Hg] [facility] Systolic blood pressure 128 mm[Hg] Normal (applies t o non-numeric results) 128 mm[Hg] [facility] Body height 174.3456 cm Normal (applies to non-numeric res ults) 174.3456 cm [facility] Body weight Measured 60.2 kg Normal (applies to non-num ayden results) 60.2 kg [facility] Body mass index (BMI) [Ratio] 19.60 kg/m2 No rmal (applies to non-numeric results) 19.60 kg/m2 [facility] Body mass index (BMI) [Ratio] [...] [Ratio] 20.1 kg/m2 20.1 k g/m2 REBEKAH ([facility]) Body height 69 [in_i] 69 [in_i] REBEKAH ([facility]) Diastolic blood pressure 73 mm[Hg] 73 mm[Hg] REBEKAH ([facility]) Body weight 2182.4 [oz_av] 2182.4 [oz_av] ATHEN A ([facility]) Systolic blood pressure 109 mm[Hg] 109 mm[Hg] A [facility] ([facility]) Body weight 2192 [oz_av] 2192 [oz_av] REBEKAH ([facility]) Systolic blood pressure 107 mm[Hg] 107 mm[Hg] A [facility] ([facility]) Body mass index (BMI) [Ratio] 20.2 kg/m2 20.2 k g/m2 REBEKAH ([facility]) Body height 69 [in_i] 69 [in_i] REBEKAH ([facility]) Diastolic blood pressure 60 mm[Hg] 60 mm[Hg] RE[facility]KAH ([facility]) Body weight 2192 [oz_av] 2192 [oz_av] REBEKAH ([facility]) Systolic blood pressure 107 mm[Hg] 107 mm[Hg] A [facility] ([facility]) Body mass index (BMI) [Ratio] 20.2 kg/m2 20.2 k g/m2 RE[facility] ([facility]) Body height 69 [in_i] 69 [in_i] REBEKAH ([facility]) Diastolic blood pressure 60 mm[Hg] 60 mm[Hg] RE[facility]KAH ([facility]) Body surface area Derived from formula 1.76 m2 1.76 m2 [facility] Body weight 62.313 kg 62.313 kg [facility] ([facility]) [place] body weight 160 [lb_av] 160 [lb_av] MEDEN T ([facility]) Body mass index (BMI) [Ratio] 20.3 kg/m2 20.3 k g/m2 [facility] Body weight 137.38 [lb_av] 137.38 [lb_av] MEDEN T ([facility]) Body height 69 [in_i] 69 [in_i] [facility] ([facility]) 5'9" Diastolic blood pressure 69 mm[Hg] 69 mm[Hg] [facility] ([facility]) Systolic blood pressure 106 mm[Hg] 106 mm[Hg] [facility] Body weight 2144 [oz_av] 2144 [oz_av] REBEKAH ([facility]) Body mass index (BMI) [Ratio] 19.8 kg/m2 19.8 k g/m2 REBEK[facility] ([facility]) Body height 69 [in_i] 69 [in_i] [place] ([facility]) Body weight 2144 [oz_av] 2144 [oz_av] REBEKAH ([facility]) Body mass index (BMI) [Ratio] 19.8 kg/m2 19.8 k g/m2 REBEKAH ([facility]) Body height 69 [in_i] 69 [in_i] REBEKAH ([facility]) Body weight 2144 [oz_av] 2144 [oz_av] REBEKAH ([facility]) Body mass index (BMI) [Ratio] 19.8 kg/m2 19.8 k g/m2 REBEK[facility] ([facility]) Body height 69 [in_i] 69 [in_i] REBEKAH ([facility]) Body weight 2144 [oz_av] 2144 [oz_av] REBEKAH ([facility]) Body weight 2144 [oz_av] 2144 [oz_av] REBEKAH ([facility]) Systolic blood pressure 130 mm[Hg] 130 mm[Hg] A [facility] ([facility]) Body mass index (BMI) [Ratio] 19.8 kg/m2 19.8 k g/m2 RE[facility]KAH ([facility]) Body height 69 [in_i] 69 [in_i] RE[facility]AH ([facility]) Diastolic blood pressure 101 mm[Hg] 101 mm[Hg] RE[facility] ([facility]) Body weight 2144 [oz_av] 2144 [oz_av] REBEKAH ([facility]) Systolic blood pressure 130 mm[Hg] 130 mm[Hg] A [facility] ([facility]) Body mass index (BMI) [Ratio] 19.8 kg/m2 19.8 k g/m2 RE[facility] ([facility]) Body height 69 [in_i] 69 [in_i] [facility] ([facility]) Diastolic blood pressure 101 mm[Hg] 101 mm[Hg] [facility] ([facility]) Systolic blood pressure 130 mm[Hg] 130 mm[Hg] A [facility] ([facility]) Body mass index (BMI) [Ratio] 19.8 kg/m2 19.8 k g/m2 REBEKAH ([facility]) Body height 69 [in_i] 69 [in_i] REBEKAH ([facility]) Diastolic blood pressure 101 mm[Hg] 101 mm[Hg] RE[facility] ([facility]) Body weight 2144 [oz_av] 2144 [oz_av] REBEKAH ([facility]) Systolic blood pressure 130 mm[Hg] 130 mm[Hg] A [facility] ([facility]) Body mass index (BMI) [Ratio] 19.8 kg/m2 19.8 k g/m2 REBEKAH ([facility]) Body height 69 [in_i] 69 [in_i] REBE[facility] ([facility]) Diastolic blood pressure 101 mm[Hg] 101 mm[Hg] RE[facility] ([facility]) Body surface area Derived from formula 1.72 m2 1.72 m2 [facility] ([facility] Body weight 59.138 kg 59.138 kg [facility] ([facility]) [place] body weight 160 [lb_av] 160 [lb_av] MEDEN T ([facility]) Body mass index (BMI) [Ratio] 19.3 kg/m2 19.3 k g/m2 [facility] ([facility]) Body weight 130.38 [lb_av] 130.38 [lb_av] [facility] Body height 69 [in_i] 69 [in_i] [facility] ([facility], ) 5'9" Diastolic blood pressure 81 mm[Hg] 81 mm[Hg] [facility] ([facility]) Systolic blood pressure 126 mm[Hg] 126 mm[Hg] M JUSTIN ([facility], ) Body weight 2048 [oz_av] 2048 [oz_av] REBEKAH ([facility]) Systolic blood pressure 116 mm[Hg] 116 mm[Hg] A [facility] ([facility]) Body height 69 [in_i] 69 [in_i] RE[facility] ([facility]) Diastolic blood pressure 80 mm[Hg] 80 mm[Hg] [facility] ([facility]) Body weight 8 [oz_av] 2048 [oz_av] REBEKAH ([facility]) Systolic blood pressure 116 mm[Hg] 116 mm[Hg] A [facility] ([facility]) Body height 69 [in_i] 69 [in_i] REBEKAH ([facility]) Diastolic blood pressure 80 mm[Hg] 80 mm[Hg] [facility] ([facility]) Body weight 2048 [oz_av] 2048 [oz_av] REBEKAH ([facility]) Systolic blood pressure 116 mm[Hg] 116 mm[Hg] A [facility] ([facility]) Body height 69 [in_i] 69 [in_i] [facility] ([facility]) Diastolic blood pressure 80 mm[Hg] 80 mm[Hg] [facility] ([facility]) Body weight 2048 [oz_av] 2048 [oz_av] REBE[facility] ([facility]) Systolic blood pressure 116 mm[Hg] 116 mm[Hg] A [facility] ([facility]) Body height 69 [in_i] 69 [in_i] RE[facility] ([facility]) Diastolic blood pressure 80 mm[Hg] 80 mm[Hg] RE[facility] ([facility]) Body surface area Derived from formula 1.73 m2 1.73 m2 [facility] ([facility], ) Body weight 59.478 kg 59.478 kg [facility] ([facility]) [place] body weight 160 [lb_av] 160 [lb_av] [facility] Body mass index (BMI) [Ratio] 19.4 kg/m2 19.4 k g/m2 [facility] ([facility]) Body weight 131.12 [lb_av] 131.12 [lb_av] [facility] ([facility], ) Body height 69 [in_i] 69 [in_i] [facility] ([facility]) 5'9" Diastolic blood pressure 80 mm[Hg] 80 mm[Hg] [facility] ([facility]) Systolic blood pressure 118 mm[Hg] 118 mm[Hg] [facility] Body weight 2144 [oz_av] 2144 [oz_av] REBEKAH ([facility]) Systolic blood pressure 126 mm[Hg] 126 mm[Hg] A [facility] ([facility]) Body height 69 [in_i] 69 [in_i] RE[facility] ([facility]) Diastolic blood pressure 88 mm[Hg] 88 mm[Hg] RE[facility] ([facility]) Body weight 2144 [oz_av] 2144 [oz_av] REBEK[facility] ([facility]) Systolic blood pressure 126 mm[Hg] 126 mm[Hg] A [facility] ([facility]) Body height 69 [in_i] 69 [in_i] REBE[facility] ([facility]) Diastolic blood pressure 88 mm[Hg] 88 mm[Hg] [facility] ([facility]) Body weight 2144 [oz_av] 2144 [oz_av] [facility] ([facility]) Body weight 2144 [oz_av] 2144 [oz_av] REBE[facility] ([facility]) Systolic blood pressure 126 mm[Hg] 126 mm[Hg] [facility] Body height 69 [in_i] 69 [in_i] REBEKAH ([facility]) Diastolic blood pressure 88 mm[Hg] 88 mm[Hg] RE[facility] ([facility]) Systolic blood pressure 126 mm[Hg] 126 mm[Hg] A THENA ([facility]) Body height 69 [in_i] 69 [in_i] [facility] ([facility]) Diastolic blood pressure 88 mm[Hg] 88 mm[Hg] RE[facility] ([facility]) Body weight 2144 [oz_av] 2144 [oz_av] REBE[facility] ([facility]) Systolic blood pressure 105 mm[Hg] 105 mm[Hg] [facility] Body height 69 [in_i] 69 [in_i] REBE[facility] ([facility]) Diastolic blood pressure 73 mm[Hg] 73 mm[Hg] [facility] ([facility]) Body weight 2144 [oz_av] 2144 [oz_av] [facility] ([facility]) Systolic blood pressure 105 mm[Hg] 105 mm[Hg] [facility] Body height 69 [in_i] 69 [in_i] [facility] ([facility]) Diastolic blood pressure 73 mm[Hg] 73 mm[Hg] [facility] ([facility]) Body weight 2144 [oz_av] 2144 [oz_av] [facility] ([facility]) Systolic blood pressure 105 mm[Hg] 105 mm[Hg] A THENA ([facility]) Body height 69 [in_i] 69 [in_i] [facility] ([facility]) Diastolic blood pressure 73 mm[Hg] 73 mm[Hg] [facility] ([facility]) Body weight 2144 [oz_av] 2144 [oz_av] RE[facility] ([facility]) Systolic blood pressure 105 mm[Hg] 105 mm[Hg] [facility] Body height 69 [in_i] 69 [in_i] [facility] ([facility]) Diastolic blood pressure 73 mm[Hg] 73 mm[Hg] [facility] ([facility]) Systolic blood pressure 119 mm[Hg] 119 mm[Hg] A THENA ([facility]) Body height 69 [in_i] 69 [in_i] [facility] ([facility]) Diastolic blood pressure 84 mm[Hg] 84 mm[Hg] [facility] ([facility]) Systolic blood pressure 119 mm[Hg] 119 mm[Hg] A THENA ([facility]) Body height 69 [in_i] 69 [in_i] [facility] ([facility]) Diastolic blood pressure 84 mm[Hg] 84 mm[Hg] RE[facility] ([facility]) Systolic blood pressure 119 mm[Hg] 119 mm[Hg] [facility] Body height 69 [in_i] 69 [in_i] REBEKAH ([facility]) Diastolic blood pressure 84 mm[Hg] 84 mm[Hg] RE[facility] ([facility]) Systolic blood pressure 119 mm[Hg] 119 mm[Hg] A THENA ([facility]) Body height 69 [in_i] 69 [in_i] [facility] ([facility]) Diastolic blood pressure 84 mm[Hg] 84 mm[Hg] REBEKAH ([facility]) Body weight 2144 [oz_av] 2144 [oz_av] REBEKAH ([facility]) Systolic blood pressure 109 mm[Hg] 109 mm[Hg] [facility] Body height 69 [in_i] 69 [in_i] REBEKAH ([facility]) Diastolic blood pressure 80 mm[Hg] 80 mm[Hg] REBEKAH ([facility]) Body weight 2144 [oz_av] 2144 [oz_av] REBEK[facility] ([facility]) Systolic blood pressure 109 mm[Hg] 109 mm[Hg] A THENA ([facility]) Body height 69 [in_i] 69 [in_i] [facility]AH ([facility]) Diastolic blood pressure 80 mm[Hg] 80 mm[Hg] RE[facility] ([facility]) Body weight 2144 [oz_av] 2144 [oz_av] REBEKAH ([facility]) Systolic blood pressure 109 mm[Hg] 109 mm[Hg] A THENA ([facility]) Body height 69 [in_i] 69 [in_i] [facility]BEKAH ([facility]) Diastolic blood pressure 80 mm[Hg] 80 mm[Hg] REBEKAH ([facility]) Body weight 2144 [oz_av] 2144 [oz_av] REBEKAH ([facility]) Systolic blood pressure 109 mm[Hg] 109 mm[Hg] A THENA ([facility]) Body height 69 [in_i] 69 [in_i] RE[facility]KAH ([facility]) Diastolic blood pressure 80 mm[Hg] 80 mm[Hg] REBEKAH ([facility]) Body weight 57.380 kg 57.380 kg [facility] Body mass index (BMI) [Ratio] 18.7 kg/m2 18.7 k g/m2 [facility] ([facility], ) Body weight 126.50 [lb_av] 126.50 [lb_av] MEDEN T ([facility], ) Body height 69 [in_i] 69 [in_i] [facility], [facility] 5'9" Body temperature 96.9 [degF] 96.9 [degF] [facility] ([facility], ) Diastolic blood pressure 62 mm[Hg] 62 mm[Hg] [facility] ([facility], ) Systolic blood pressure 110 mm[Hg] 110 mm[Hg] M JUSTIN ([facility], ) Body weight 1984 [oz_av] 1984 [oz_av] REBEKAH ([facility]) Systolic blood pressure 115 mm[Hg] 115 mm[Hg] A THENA ([facility]) Body height 69 [in_i] 69 [in_i] REBEKAH ([facility]) Diastolic blood pressure 72 mm[Hg] 72 mm[Hg] REBEKAH ([facility]) Body weight 1983 [oz_av] 1984 [oz_av] REBEKAH ([facility]) Systolic blood pressure 115 mm[Hg] 115 mm[Hg] A THENA ([facility]) Body height 69 [in_i] 69 [in_i] REBEKAH ([facility]) Diastolic blood pressure 72 mm[Hg] 72 mm[Hg] REBEKAH ([facility]) Body weight 1983 [oz_av] 1983 [oz_av] REBEKAH ([facility]) Systolic blood pressure 115 mm[Hg] 115 mm[Hg] A THENA ([facility]) Body height 69 [in_i] 69 [in_i] REBEKAH ([facility]) Diastolic blood pressure 72 mm[Hg] 72 mm[Hg] REBE[facility]AH ([facility]) Body weight 1983 [oz_av] 1983 [oz_av] REBEKAH ([facility]) Systolic blood pressure 115 mm[Hg] 115 mm[Hg] [facility] Body height 69 [in_i] 69 [in_i] REBEKAH ([facility]) Diastolic blood pressure 72 mm[Hg] 72 mm[Hg] [facility] ([facility]) Body weight 1868.8 [oz_av] 1868.8 [oz_av] ATHEN A ([facility]) Systolic blood pressure 109 mm[Hg] 109 mm[Hg] [facility] Body height 69 [in_i] 69 [in_i] REBEKAH ([facility]) Diastolic blood pressure 76 mm[Hg] 76 mm[Hg] REBEKAH ([facility]) Body weight 1868.8 [oz_av] 1868.8 [oz_av] ATHEN A ([facility]) Systolic blood pressure 109 mm[Hg] 109 mm[Hg] A THENA ([facility]) Body height 69 [in_i] 69 [in_i] REBEKAH ([facility]) Diastolic blood pressure 76 mm[Hg] 76 mm[Hg] RE[facility]KAH ([facility]) Body weight 1868.8 [oz_av] 1868.8 [oz_av] ATHEN A ([facility]) Systolic blood pressure 109 mm[Hg] 109 mm[Hg] [facility] Body height 69 [in_i] 69 [in_i] REBEKAH ([facility]) Diastolic blood pressure 76 mm[Hg] 76 mm[Hg] REBEKAH ([facility]) Body weight 1868.8 [oz_av] 1868.8 [oz_av] ATHEN A ([facility]) Systolic blood pressure 109 mm[Hg] 109 mm[Hg] Hermila ANGELES ([facility]) Body height 69 [in_i] 69 [in_i] REBEKAH ([facility]) Diastolic blood pressure 76 mm[Hg] 76 mm[Hg] REBEKAH ([facility]) Body weight 52.277 kg 52.277 kg [facility] ([facility], ) Body mass index (BMI) [Ratio] 17.0 kg/m2 17.0 k g/m2 [facility] ([facility], ) Body weight 115.25 [lb_av] 115.25 [lb_av] NAUNRHIANNON T ([facility], ) Body height 69 [in_i] 69 [in_i] [facility] ([facility], ) 5'9" Diastolic blood pressure 62 mm[Hg] 62 mm[Hg] [facility] ([facility]) Systolic blood pressure 100 mm[Hg] 100 mm[Hg] M EDGAY ([facility]) ID Date Data Source [id number] 06/05/2019 10:35:59 AM [facility] Name Value Range Interpretation Code Description Data Source(s) WEIGHT RECORDED 289.91 lb 289.91 lb [facility] Body height Measured 72 in 72 in [facility] Patient Treatment Plan of Care Planned Activity Planned Date Details Description Data Source (s) 24 HR Nicotine 0.583 MG/HR Transdermal Patch 06/02/2019 09:00:00 AM [facility] sodium chloride (preservative free) 0.9 % flush 3 mL 020 01:00:00 AM [facility] Tetrahydrocannabinol 5 MG Oral Capsule REBEKAH ([facility]) Tetrahydrocannabinol 5 MG Oral Capsule REBEKAH ([facility]) Tetrahydrocannabinol 5 MG Oral Capsule REBEKAH ([facility]) Tetrahydrocannabinol 5 MG Oral Capsule REBEKAH ([facility])
[2020-06-19] MEDS ORDERED: ONDANSETRON 4MG/2ML VIAL IV ONE (15:15)
[2020-06-19] MEDS ORDERED: NS 1,000 ML IV ONE (15:15)
[2020-06-19] MEDS ORDERED: MORPHINE 4 MG/ML 1ML VIAL/SYRINGE (J2270) IV ONE (15:15)
[2020-06-19 15:28] LABS: BASO % 0.2 % (0.0-1.0); EOS # 0.1 10^3/uL (0.0-0.5); EOS % 0.8 % (0.0-3.0); HEMATOCRIT 29.5 % (42.0-52.0); HEMOGLOBIN 9.8 g/dl (13.5-17.5); LYMPH % 15.3 % (24.0-44.0); MEAN CORPUSCULAR HEMOGLOBIN 31.3 pg (27.0-33.0); MEAN CORPUSCULAR HGB CONC 33.2 g/dl (32.0-36.5); MEAN CORPUSCULAR VOLUME 94.2 fl (80.0-96.0); MONO # 1.7 10^3/uL (0.0-0.8); MONO % 13.1 % (2.0-8.0); NEUTROPHILS % 70.1 % (36.0-66.0); PLATELET COUNT, AUTOMATED 543 10^3/uL (150-450); RED BLOOD COUNT 3.13 10^6/uL (4.30-6.10); WHITE BLOOD COUNT 12.8 10^3/uL (4.0-10.0)
[2020-06-19 15:38] LABS: INR 0.99; PROTHROMBIN TIME 13.3 SECONDS (12.5-14.3)
[2020-06-19 15:39] LABS: PARTIAL THROMBOPLASTIN TIME 33.9 SECONDS (24.2-38.5)
[2020-06-19 16:03] LABS: ALT/SGPT 20 U/L (12-78); BILIRUBIN,DIRECT 0.3 MG/DL (0.0-0.2); BILIRUBIN,TOTAL 1.2 MG/DL (0.2-1.0); BLOOD UREA NITROGEN 10 MG/DL (7-18); CALCIUM LEVEL 8.4 MG/DL (8.5-10.1); CARBON DIOXIDE LEVEL 28 MEQ/L (21-32); CHLORIDE LEVEL 100 MEQ/L (98-107); CK-MB VALUE MASS < 1.0 NG/ML (<3.6); CPK CREATINE PHOSPHOKINASE 61 U/L (39-308); CREATININE FOR GFR 0.58 MG/DL (0.70-1.30); GLOMERULAR FILTRATION RATE > 60.0 (>60); GLUCOSE, FASTING 95 MG/DL (70-100); LIPASE 35 U/L (73-393); MB/CK RELATIVE INDEX 1.64 (< OR =4); POTASSIUM SERUM 3.9 MEQ/L (3.5-5.1); SODIUM LEVEL 139 MEQ/L (136-145); TOTAL PROTEIN 6.3 GM/DL (6.4-8.2); TROPONIN I < 0.02 NG/ML (< 0.10)
[2020-06-19] MEDS: GASTROGRAFIN SOLUTION 30ML PO SCH ×2 (16:09→16:56)
[2020-06-19] MEDS: MORPHINE 4 MG/ML 1ML VIAL/SYRINGE (J2270) IV PRN ×2 (16:57→18:23)
[2020-06-19] MEDS ORDERED: ISOVUE-370 76% 100ML VIAL As Ordered ONE (16:57)
--- NOTE | 2020-06-19 19:03 | REPVR ---
PROCEDURE INFORMATION: Exam: CT Abdomen And Pelvis With Contrast Exam date and time: 06/19/2020 5:36 PM Age: 45 years old Clinical indication: Vomiting; Abdominal pain; Generalized; Prior surgery; Surgery date: <1 month; Surgery type: Colostomy reversal 06/11/2020; Additional info: Abdominal pain/vomiting; Recent colostomy/ileostomy rev. TECHNIQUE: Imaging protocol: Computed tomography of the abdomen and pelvis with contrast. Radiation optimization: All CT scans at this facility use at least one of these dose optimization techniques: automated exposure control; mA and/or kV adjustment per patient size (includes targeted exams where dose is matched to clinical indication); or iterative reconstruction. Contrast material: ISOVUE 370; Contrast volume: 100 ml; Contrast route: INTRAVENOUS (IV); Other contrast: Oral; COMPARISON: CT ABD/PEL W/IV ORAL CONTRAS 11/06/2019 6:49 AM FINDINGS: Lungs: There is a linear area of atelectasis and pneumonia at the left lung base. A patchy area of infiltrate is also noted at the lateral aspect of the left lung base. Heart: The heart is normal in size and there is no pericardial effusion. Liver: Normal appearing liver. Gallbladder and bile ducts: Normal gallbladder. Normal common bile duct. Pancreas: Normal size pancreas. Spleen: Normal spleen. Adrenal glands: Normal adrenal glands. Kidneys and ureters: There is opacification of both kidneys. There is mild to moderate right hydronephrosis and dilatation of the right ureter in this as newly developed. Stomach and bowel: There has been reanastomosis of the transverse colon with multiple surgical clips. Within the mesentery posterior and inferior to this area transverse colon anastomosis is a large soft tissue density measuring approximately 12 cm in transverse dimension by 5 cm in AP dimension and probably a large area of mesenteric hematoma. Intraperitoneal space: There is a massive amount fluid within the abdomen and pelvis and probably representing serous fluid and also clotted blood. There is contrast within the stomach and duodenum. There is contrast through loops of jejunum demonstrating moderate dilatation and air-fluid levels possibly the result of ileus. It would be important to have a follow-up CT or KUB to ensure that the contrast enters the distal ileum and colon. Vasculature: There is opacification of the aorta. There is opacification of the SMV the and the SMA. There is thick atherosclerotic plaque formation along the left side of the aorta with calcification. Lymph nodes: Unremarkable. No enlarged lymph nodes. Urinary bladder: There is mild distention of the urinary bladder. IMPRESSION: 1. There is a massive amount of fluid throughout the abdomen and pelvis probably serous fluid and clotted blood. 2. Postoperative changes with anastomosis of the transverse colon and multiple surgical clips. Within the mesentery there is a very large area of hematoma at this location measuring 12 cm in transverse dimension by 5 cm in thickness. 3. There is contrast in the distal jejunum and proximal ileum demonstrating moderate dilatation air-fluid levels. I would suggest a follow-up CT or KUB to ensure that the contrast enters the distal ileum transverse colon. 4. There is a small amount pneumoperitoneum which may be from the recent surgery. 5. Development moderate right hydronephrosis and dilatation of the right ureter. 6. Linear area of atelectasis and infiltrate and patchy area at the left lung base Electronically signed by: Gary Sandy On 06/19/2020 19:02:55 PM
[2020-06-19 19:54] VITALS: BP 110/64
[2020-06-19] MEDS ORDERED: PERCOCET 5MG/325MG TAB PO ONE (20:00)
--- NOTE | 2020-06-20 20:40 | ECGEPIP ---
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
== END 2020-06-19 21:10 | disposition home or self-care (01) ==
LOC: M ED 14:37
DX: G89.18 Other acute postprocedural pain (principal); Z98.890 Other specified postprocedural states; R10.9 Unspecified abdominal pain; R11.2 Nausea with vomiting, unspecified; C18.9 Malignant neoplasm of colon, unspecified; N13.30 Unspecified hydronephrosis; J98.11 Atelectasis; K57.32 Diverticulitis of large intestine without perforation or abscess without bleeding; Z90.49 Acquired absence of other specified parts of digestive tract; F17.200 Nicotine dependence, unspecified, uncomplicated; Z79.01 Long term (current) use of anticoagulants
CPT/HCPCS: 74177; 80048; 80076; 82550; 82553; 83605; 83690; 85025; 85610; 85730; 93005; 93041; 96361; 96374; 96375; 96376; 99285; J2270; J2405; Q9963; Q9967

== ENCOUNTER 2020-06-21 15:44 | Emergency (ER) | payer OTHER ==
[~2020-06-21] VITALS: Ht 175.3 cm; Wt 58.0 kg
[2020-06-21 15:44] VITALS: BP 114/79
[~2020-06-21 15:44] MED LIST changes: -SODIUM CHLORIDE 0.9% INJ 10 ML SYR IV SCH
--- OUTSIDE RECORDS SUMMARY | 2020-06-21 16:06 | CCD ---
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 Name Role Phone Sissy Crain JR, MD [...] Unavailable Mathieu Henderosn MD Unavailable Unavailable Mathieu Henderson MD Unavailable [...] Unavailable Mathieu Henderson MD Unavailable Unavailable Mathieu Henedrson MD Unavailable Unavailable Mathieu Henderson MD Unavailable [...] Unavailable Idalia Henderson MD Unavailable Unavailable Idalia Hendreson MD Unavailable Unavailable Idalia Henderson MD Unavailable [...] MD Unavailable Unavailable HendersonIdalia MD Unavailable Unavailable HendersonIdaila MD Unavailable Unavailable HendersonIdalia cleaning MD Unavailable [...] is protected by Article 27-F of the [facility] Public Health law. If you continue you may have access to information: Regarding HIV / AIDS; Provided by facilities licensed or operated by the [facility] Office of Mental Health; or Provided by the [facility] Office for People With Developmental Disabilities. If such information is present, then the following [facility] mandated warning applies: This information has been [...] law may result in a fine or halfway sentence or both. A general authorization for the release of medical or other information is NOT sufficient authorization for further disc losure. Allergies and Adverse Reactions Type Description Substance Reaction Status Data Source(s ) Drug Class NO KNOWN ALLERGIES NO KNOWN ALLERGIES [facility] Encounters Encounter Providers Location Date Indications Data Source(s ) Inpatient Attender: Sherry Henderson MD 06/11/2020 07:52:11 AM EST Lab [facility] Inpatient Attender: Sherry Henderson MDAdmitter: Sherry butt MD 06/11/2020 05:13:00 AM EST - 06/16/2020 12:02:00 PM EST ILEOSTOMY STATUS, COLOSTOMY STATUS & HX COLON CARCINOMA Z85. [facility] ILEOSTOMY STATUS, COLOSTOMY STATUS & HX COLON CARCINOMA Z85. Patient discharged. ( in Healthcare facility) Attender: Sherry Henderson MDAdmitter: Sherry Henderson MDConsultant: Daniel Henderson MD 06/11/2020 05:13:00 AM ES T [facility] Outpatient Attender: Shrery Henderson MD 06/07/2020 02:21:03 PM EST Lab [place] [facility] Outpatient Attender: Sherry Henderson MD 06/07/2020 01 :49:00 PM EST URGENT OPEN TAKEDOWN OF ILEOSTOMY, TAKEDOWN COLOSTOMY AND LO [facility] URGENT OPEN TAKEDOWN OF ILEOSTOMY, TAKED OWN COLOSTOMY AND LO Outpatient Attender: Sherry Henderson MD [place] 05/31/2020 01:45:00 PM EST [facility] ([facility]) Daniel Henderson MD: [address] [place] [address], Ph. Attender: Daniel Henderson MD [facility] Medical 05/25/2020 12:00:00 AM EST [facility] ([facility]) Daniel Henderson MD: [address] [place] [address], Ph. Attender: Daniel Henderson MD [facility] Medical 04/27/2020 12:00:00 AM EST [facility] ([facility]) Daniel Henderson MD: [address] [place] [address], Ph. Attender: Daniel Henderson MD [facility] Medical 04/27/2020 12:00:00 AM EST [facility] ([facility]) Daniel Henderson MD: [address] [place] [address], Ph. Attender: Daniel Henderson MD [facility] Medical 03/29/2020 12:00:00 AM EST [facility] ([facility]) Daniel Henderson MD: [address] [place] [address], Ph. Attender: Daniel Henderson MD [facility] Medical 03/29/2020 12:00:00 AM EST [facility] ([facility]) Daniel Henderson MD: [address] [place] [address], Ph. Attender: Daniel Henderson MD [facility] Medical 03/29/2020 12:00:00 AM EST [facility] ([facility]) Daniel Henderson MD: [address] [place] [address], Ph. Attender: Daniel Henderson MD [facility] Medical 03/01/2020 12:00:00 AM EDT [facility] ([facility]) Daniel Henderson MD: [address] [place] [address], Ph. Attender: Daniel Henderson MD [facility] Medical 03/01/2020 12:00:00 AM EDT [facility] ([facility]) Daniel Henderson MD: [address] [place] [address], Ph. Attender: Daniel Henderson MD [facility] Medical 03/01/2020 12:00:00 AM EDT [facility] ([facility]) Daniel Henderson MD: [address] [place] [address], Ph. Attender: Daniel Henderson MD [facility] Medical 03/01/2020 12:00:00 AM EDT [facility] ([facility]) Outpatient Attender: Daniel Henderson MD FP 02/24/2020 01:27:00 PM EDT [facility] Outpatient Attender: Laron Colindres/Cam/Herbert/Horacio dl 02/16/2020 08:40:00 AM EDT [facility] ([facility] Outpatient Attender: Daniel Henderson MD FP 02/03/2020 10:32:01 AM EDT [facility] Outpatient Attender: Daniel Henderson MD FP 02/02/2020 10:53:02 AM EDT [facility] Outpatient Attender: Daniel Henderson MD FP 01/10/2020 11:45:01 AM EDT [facility] Outpatient Attender: Daniel Henderson MD FP 01/05/2020 10:04:01 AM EDT [facility] Outpatient Attender: Daniel Henderson MD FP 12/31/2019 09:52:02 AM EDT [facility] Outpatient Attender: Daniel Henderson MD FP 12/31/2019 09:23:00 AM EDT [facility] Outpatient Attender: Daniel Henderson MD FP 12/17/2019 12:02:28 AM EDT [facility] Outpatient Attender: Daniel Henderson MD FP 12/16/2019 09:35:00 AM EDT [facility] Outpatient Attender: Laron Colindres/Cam/Herbert/Horacio dl 11/26/2019 08:50:00 AM EDT [facility] Outpatient Attender: Daniel Henderson MD FP 11/24/2019 11:27:01 AM EDT [facility] Outpatient Attender: Daniel Henderson MD FP 11/24/2019 10:19:01 AM EDT [facility] Outpatient Attender: Daniel Henderson MD FP 11/22/2019 12:02:25 AM EDT [facility] Outpatient Attender: Daniel Henderson MD FP 11/21/2019 02:23:01 PM EDT [facility] Outpatient Attender: aDniel Henderson MD FP 11/19/2019 01:48:01 PM EDT [facility] Outpatient Attender: Daniel Henderson MD FP 11/19/2019 11:49:01 AM EDT [facility] Outpatient Attender: Daniel Henderson MD FP 11/17/2019 01:34:00 PM EDT [facility] Outpatient Attender: Daniel Henderson MD FP 11/10/2019 11:59:00 AM EDT [facility] Outpatient Attender: Daniel Henderson MD FP 11/05/2019 11:10:01 AM EDT [facility] Outpatient Attender: Daniel Henderson MD FP 10/28/2019 03:30:03 PM EDT [facility] Outpatient Attender: Daniel Henderson MD FP 10/24/2019 12:02:28 AM EDT [facility] Outpatient Attender: Daniel Henderson MD FP 10/23/2019 05:00:01 PM EDT [facility] Outpatient Attender: Daniel Henderson MD FP 10/23/2019 11:49:01 AM EDT [facility] Outpatient Attender: Daniel Henderson MD FP 10/22/2019 12:02:22 AM EDT [facility] Outpatient Attender: Daniel Henderson MD FP 10/21/2019 02:40:01 PM EDT [facility] Outpatient Attender: Daniel Henderson MD FP 10/21/2019 02:39:02 PM EDT [facility] Outpatient Attender: Daniel Henderson MD FP 10/21/2019 01:40:00 PM EDT [facility] Outpatient Attender: Daniel Henderson MD FP 10/21/2019 10:12:00 AM EDT [facility] Outpatient Attender: Saundra Oneill MD FP 10/14/2019 07:58:37 PM E DT [facility] Outpatient Attender: Saundra Oneill MD FP 09/23/2019 02:52:01 PM E DT [facility] Outpatient Attender: Saundra Oneill MD FP 09/23/2019 02:51:00 PM E DT [facility] Outpatient Attender: Saundra Oneill MD FP 09/22/2019 09:43:00 AM E DT [facility] Outpatient 09/16/2019 06:22:00 AM EDT [facility] Outpatient Attender: GIO SIMS MD FP 09/08/2019 10:20:00 A M EDT [facility] Outpatient Attender: GIO SIMS MD FP 09/04/2019 02:27:01 P M EDT [facility] Outpatient Attender: GIO SIMS MD FP 08/27/2019 10:25:01 A M EDT [facility] Outpatient 08/15/2019 06:14:00 AM EDT [facility] Outpatient Attender: GIO SIMS MD FP 07/30/2019 01:25:00 P M EDT [facility] Outpatient Attender: GIO SIMS MD FP 07/25/2019 03:37:00 P M EDT [facility] Outpatient Attender: GIO SIMS MD FP 07/17/2019 03:10:04 P M EDT [facility] Outpatient Attender: GIO SIMS MD FP 07/17/2019 03:10:04 P M EDT [facility] Outpatient Attender: GIO SIMS MD FP 07/17/2019 03:09:03 P M [facility] Outpatient Attender: GIO SIMS MD FP 07/11/2019 09:42:00 A [facility] Outpatient 07/03/2019 12:31:00 PM [facility] Outpatient Attender: GIO SIMS MD 07/03/2019 10:19:02 A [facility] Outpatient 07/01/2019 09:47:00 AM EST [facility] [address] [address] 06/30/2019 12:00:00 AM EST eCW1 ([facility]) Outpatient 06/26/2019 02:25:00 PM EST [facility] Outpatient 06/25/2019 01:31:00 PM [facility] Outpatient Attender: GIO SIMS MD FP 06/20/2019 10:38:00 A [facility] Outpatient Attender: GIO SIMS MD FP 06/18/2019 10:04:05 A [facility] Outpatient Attender: GIO SIMS MD 06/18/2019 08:44:00 A [facility] Outpatient 06/17/2019 02:34:00 PM [facility] Outpatient Attender: GIO SIMS MD FP 06/16/2019 04:08:00 P [facility] Outpatient Attender: GIO SIMS MD 06/16/2019 09:21:00 A [facility] Outpatient 06/02/2019 12:47:00 PM [facility] Outpatient Attender: GIO SIMS MD FP 06/02/2019 11:00:04 A [facility] Outpatient Attender: GRIS HOBBS MDReferrer: GRIS HOBBS MD 06/01/2019 12:00:00 AM [facility] Inpatient Attender: GRIS Guzman r: CHARLINE MÁRQUEZ MDAdmitter: GRIS HOBBS MDReferrer: PROVIDER SYSTEM IN 05/31/2019 12:00:00 AM [facility] - 06/02/2019 12:00:00 AM [facility] Peritoneal abscess Patient discharged. Outpatient Attender: GIO SIMS MD 05/27/2019 01:59:00 P [facility] Outpatient Attender: GIO SIMS MD 05/27/2019 01:56:00 P [facility] Outpatient Attender: GIO SIMS MD 05/27/2019 01:55:02 P [facility] Outpatient Attender: GIO SIMS MD 05/27/2019 01:55:01 P [facility] Outpatient Attender: GIO SIMS MD 05/27/2019 10:13:00 A [facility] Outpatient Attender: GIO SIMS MD 05/12/2019 01:13:02 P [facility] Outpatient Attender: GIO SIMS MD 05/12/2019 11:47:01 A [facility] Outpatient Attender: GIO SIMS MD 05/09/2019 12:01:00 P [facility] Outpatient Attender: GIO SIMS MD 05/09/2019 11:52:01 A [facility] Outpatient Attender: GIO SIMS MD 05/09/2019 09:38:01 A [facility] Outpatient Attender: GIO SIMS MD 05/09/2019 09:20:01 A [facility] Outpatient Attender: GIO SIMS MD 05/08/2019 01:16:01 P [facility] Outpatient Attender: GIO SIMS MD 05/02/2019 09:46:00 A [facility] Outpatient Attender: GIO SIMS MD 05/02/2019 09:45:02 A [facility] Outpatient Attender: GIO SIMS MD 04/28/2019 02:53:02 P [facility] Medications Medication Brand Name Start [...] on Sun06/02/19 at 0900, For [address] [facility] Medication administered onsite sodium chloride (preservative free) 0.9 % flush 3 mL 06/02/2019 01:00:00 AM EST 3 mL Intravenous active [Ord er 1 Start] Name: Peripheral IV Signed Summary: Routine, CONTINUOUS, Starting [place] 06/01/19 at 2025, Until Sun07/01/19, For 30 [...] 3 mL, Intravenous, PRN, Line Care, Starting [place] 06/01/19 at 2024, For 30 days
Saline Lock. Flush Q8H and after each use to Saline Lock.
[Order 3 End] [Order 4 Start] Name: Saline Lock order Signed Summary: Routine, ONCE, [place] 06/01/19 at 2025, For 1 occurrence [Order 4 End] [Order 5 Start] Name: NaCl infusion 0.9 % Signed Summary: at 0.2-10 mL/hr, Intravenous, PRN, For Meds, Starting [place] 06/01/19 at 2024, For 30 days [Order 5 End] [Order 6 Start] Name: dextrose 5 % infusion Signed Summary: at 0.2-10 mL/hr, Intravenous, PRN, For Meds, Starting [place] 06/01/19 at 2024, For 30 days [Order 6 End] [facility] Medication administered onsite gabapentin 100 MG Oral Capsule gabapentin (NEURONTIN) capsule 100 mg gabapentin (NEURONTIN) capsule 100 mg 06/01/2019 05:00:00 PM EST 100 mg Oral active 100 mg, Oral, Three Times D aily Standard, First dose on Sun06/01/19 at 1700, For [address] [facility] Medication administered onsite Ibuprofen 200 MG Oral Tablet ibuprofen (ADVIL,MOTRIN) tablet 400 mg ibuprofen (ADVIL,MOTRIN) tablet 400 mg 06/01/2019 01:45:00 PM EST 400 mg Oral active 400 mg, Oral, Every 6 hours, First dose on 06/01/19 at 1345, For 30 days
Take with food.
[facility] Medication administered onsite lidocaine (XYLOCAINE) 2 % injection 6755-8586-50 06/01/2019 12:57:00 PM EST completed Code/Trauma Medicati on, Starting 06/01/[address] [facility] Medication administered onsite fentaNYL (SUBLIMAZE) (PF) injection 2662-7158-01 06/01/2019 12:55:00 PM EST completed Code/Trauma Medicati on, Starting 06/01/[address] [facility] Medication administered onsite Buprenorphine 8 MG / Naloxone 2 MG Subli ngual Tablet buprenorphine-naloxone (SUBOXONE) 8-2 MG per sublingual tablet 1 tablet buprenorphine-naloxone (SUBOXONE) 8-2 MG per sublingual tablet 1 tablet 06/01/2019 09:00:00 AM EST Sublingual active 1 tablet (8 mg of buprenorphine), Sublingual, Daily Standard, First dose on 06/01/19 at 0900, For [address] [facility] Medication administered onsite ondansetron (ZOFRAN) injection 4 mg [id number] 06/01/2019 04:11:5 9 AM EST 4 mg Intravenous active 4 mg, In travenous, Every 8 hours PRN, Nausea, Vomiting, Starting 06/01/19 at 0411, For [address] [facility] Medication administered onsite 1 ML Ketorolac Tromethamine 30 MG/ML Car tridge ketorolac (TORADOL) injection 15 mg ketorolac (TORADOL) injection 15 mg 06/01/2019 01:15:00 AM EST 15 mg Intravenous completed 15 mg, Intrav enous, Once, 06/01/19 at 0115, For [address] [facility] Medication administered onsite NaCl infusion 0.9 % 6786-6241-00 06/01/2019 12:30:00 AM EST Intravenous active at 100 mL/hr, Intrav enous, Continuous, Starting 06/01/19 at 0030, For [address] [facility] Medication administered onsite Ceftriaxone 1000 MG Injection cefTRIAXone (ROCEPHIN) i nfusion 1 g (premix) cefTRIAXone (ROCEPHIN) infusion 1 g (premix) 06/01/2019 12:15:40 AM EST 1 g Intravenous active 1 g, Intraven ous, at 100 mL/hr, Every 24 hours, First dose on 06/01/19 at 0030, For 7 days
Discouraged Uses: Empiric treatment of post-surgical meningitis (ceftazidime preferred)
[facility] Medication administered onsite Metronidazole 5 MG/ML Injectable Solution metroNIDAZOL E (FLAGYL) IVPB 500 mg metroNIDAZOLE (FLAGYL) IVPB 500 mg 06/01/2019 12:15:40 AM EST 50 0 mg Intravenous active 500 mg, Intra venous, Administer over 60 Minutes, Every 8 hours, First dose on 06/01/19 at 0030, For [address] [facility] Medication administered onsite iohexol (OMNIPAQUE) 300 MG/ML contrast injection 100 mL [id number] 05/31/2019 11:15:00 PM EST 100 mL Given by IV completed 100 mL, Given by IV, 1 TIME IMAGING, 05/31/19 at 2315, For [address] [facility] Medication administered onsite Acetaminophen 325 MG Oral Tablet acetaminophen (TYLENO L) tablet 650 mg acetaminophen (TYLENOL) tablet 650 mg 05/31/2019 08:30:00 PM EST 65 0 mg Oral active 650 mg, Oral, E very 6 hours, First dose on 05/31/19 at 2030, For 30 days
Maximum daily dose of acetaminophen is 3,000 mg from all sources in [address]
[facility] Medication administered onsite 1 ML Ketorolac Tromethamine 30 MG/ML Car tridge ketorolac (TORADOL) injection 15 mg ketorolac (TORADOL) injection 15 mg 05/31/2019 08:30:00 PM EST 15 mg Intravenous completed 15 mg, Intrav enous, Once, 05/31/19 at 2030, For [address] [facility] Medication administered onsite morphine sulfate (PF) injection 4 mg 9725-2484-08 05/31/2019 08:00: 00 PM EST 4 mg Intravenous completed 4 mg, In travenous, Once, 05/31/19 at 2000, For [address] [facility] Medication administered onsite Piperacillin 3000 MG / tazobactam 375 MG Injection piperacillin-tazobactam (ZOSYN) IVPB 3.375 g (premix) piperacillin-tazobactam (ZOSYN) IVPB 3.3 75 g (premix) 05/31/2019 07:00:00 PM EST 3.375 g Intravenous com pleted 3.375 g, Intravenous, Administer over 0.5 Hours, Once, 05/31/19 at 1900, For [address] [facility] Medication administered onsite Tetrahydrocannabinol 5 MG Oral Capsule dronabinol 5 mg capsule dronabinol 5 mg capsule completed dronabinol 5 M G Oral Capsule [facility] ([facility]) Tetrahydrocannabinol 5 MG Oral Capsule dronabinol 5 mg capsule dronabinol 5 mg capsule completed dronabinol 5 M G Oral Capsule [facility] ([facility]) Tetrahydrocannabinol 5 MG Oral Capsule dronabinol 5 mg capsule dronabinol 5 mg capsule completed dronabinol 5 M G Oral Capsule [facility] ([facility]) Tetrahydrocannabinol 5 MG Oral Capsule dronabinol 5 mg capsule dronabinol 5 mg capsule completed dronabinol 5 M G Oral Capsule [place] ([facility]) Insurance Providers Payer name Policy type / Coverage type Policy ID Covered democrat ID Covered democrat's relationship to murillo Policy [place] Plan Information [facility] [id number] SP [id number] MEDICAID GME [id number] [facility] [id number] S [id number] HEA [id number] SELF PAY ONLY [id number] SP [id number] SELF PAY ONLY [id number] SP [id number] [facility] [id number] SP [id number] [facility] [id number] SP [id number] Managed Care [facility] Community Plan P [id number] S [id number] Medicaid S [id number] S [id number] Managed Care - [facility] Community Plan P [id number] S [id number] [facility] I [id number] Self [id number] [facility] O [id number] S [id number] Managed Care [facility] Community Plan P [id number] S [id number] [facility] [id number] SP [id number] MEDICAID [id number] SP [id number] Managed Care [facility] Community Plan P [id number] S [id number] ANSI-Medicaid [id number] ANS-Medicaid [id number] ANSI-Medicaid [id number] ANSI-Medicaid [id number] MEDICAID M [id number] S [id number] UNAVAILABLE UNAVAILA BLE SELF PAY UNAVAILABLE SP UNAVAILA BLE SELF PAY ONLY UNAVAILABLE UNAV AILABLE MEDICAID [id number] SP [id number] Problems, Conditions, and Diagnoses Code Display Name Description Problem Type Effective Dates Data Source(s) V70.0 Encounter for general adult medical exam ination with abnormal findings Encounter for general adult medical examination with abnormal findings 10/21/2019 02:38:37 PM EDT [facility] [id number] Procedure by method Procedure by Method Problem 0 10/21/2019 12:00:00 AM EDT [place] ([facility]) [id number] Procedure by method Procedure by Method Problem 0 10/21/2019 12:00:00 AM EDT [place] ([facility]) [id number] Procedure by method Procedure by Method Problem 0 10/21/2019 12:00:00 AM EDT [place] ([facility]) [id number] Procedure by method Procedure by Method Problem 0 10/21/2019 12:00:00 AM EDT [place] ([facility]) C18.2 Malignant neoplasm of ascending colon Ma lignant neoplasm of ascending colon 07/17/2019 03:08:27 PM EDT [facility] Z93.3 Colostomy status H/O: colostomy 07/17/2019 03:0 8:27 PM EDT [facility] [id number] Colostomy present Colostomy Present Problem 07/16 12:00:00 AM EDT [place] ([facility]) [id number] Malignant tumor of ascending colon Malignant Rafita or of Ascending Colon Problem 07/17/2019 12:00:00 AM EDT [place] ([facility]) [id number] Colostomy present Colostomy Present Problem 07/16 12:00:00 AM EDT [place] ([facility]) [id number] Malignant tumor of ascending colon Malignant Rafita or of Ascending Colon Problem 07/17/2019 12:00:00 AM EDT [place] ([facility]) [id number] Colostomy present Colostomy Present Problem 07/16 12:00:00 AM EDT [place] ([facility]) [id number] Malignant tumor of ascending colon Malignant Rafita or of Ascending Colon Problem 07/17/2019 12:00:00 AM EDT [place] ([facility]) [id number] Colostomy present Colostomy Present Problem 07/16 12:00:00 AM EDT [place] ([facility]) [id number] Malignant tumor of ascending colon Malignant Rafita or of Ascending Colon Problem 07/17/2019 12:00:00 AM EDT [place] ([facility]) K65.1 Peritoneal abscess Peritoneal abscess Diagnosis 08:19:05 PM [facility] left ileo psoas abscess and free air left ileo p soas abscess and free air Diagnosis 05/31/2019 06:13:27 PM [facility] Surgeries/Procedures Procedure Description Date Indications Data Source(s) Colonoscopy Thru Stoma Remove Tumor/Polyp/Lesion Snare Techn ique 03/25/2020 12:00:00 AM [facility] ([facility], ) RADIOLOGY REPORT RADIOLOGY REPORT 06/01/2019 1:23 PM EST 06/01/2019 06:23:47 PM [facility] IR IMAGE GUIDED NEEDLE DRAIN PROCEDURE IR IMAGE GUIDED NEED LE DRAIN PROCEDURE STAT 06/01/2019 1:10 PM EST 06/01/2019 06:10:00 PM [facility] BLOOD COUNT COMPLETE AUTOMATED CBC Routine 06/01/2019 5:59 A M EST 06/01/2019 10:59:00 AM [facility] PHOSPHORUS INORGANIC PHOSPHORUS LEVEL Routine 06/01/2019 5:[address] 06/01/2019 10:59:00 AM [facility] MAGNESIUM MAGNESIUM LEVEL Routine 06/01/2019 5:59 AM EST 06/01/2019 10:59:00 AM [facility] BASIC METABOLIC PANEL CALCIUM TOTAL BASIC METABOLIC PANEL Routi ne 06/01/2019 5:59 AM EST 06/01/2019 10:59:[address] [facility] CT ABDOEN & PELVIS W/CONTRAST MATERIAL CT ABDOMEN PELVIS WI TH CONTRAST [id number] STAT 06/01/2019 12:16 AM EST 06/01/2019 05:16:56 AM [facility] BASIC METABOLIC PANEL CALCIUM IONIZED POCT ISTAT CHEM8 Routine 05/31/2019 7:11 PM EST 06/01/2019 12:11:00 AM [facility] BLOOD GASES ANY COMBINATION PH PCO2 PO2 CO2 HCO3 POCT ISTAT VBG /LAC Routine 05/31/2019 7:07 PM EST 06/01/2019 12:07:00 AM [facility] THROMBOPLASTIN TIME PARTIAL PLASMA/WHOLE BLOOD PARTIA L THROMBOPLASTIN TIME (PTT) STAT 05/31/2019 7:00 PM EST 06/01/2019 12:00 :00 AM [facility] PROTHROMBIN TIME PROTIME INR STAT 05/31/2019 7:00 PM EST 06/01/2019 12:00:00 AM [facility] BLOOD COUNT COMPLETE AUTO&AUTO DIFRNTL WBC COUNT CBC AND DIFFER ENTIAL STAT 05/31/2019 7:00 PM EST 06/01/2019 12:00:00 AM [facility] BLOOD TYPING ABO TYPE AND SCREEN STAT 05/31/2019 7:00 PM EST 06/01/2019 12:00:00 AM [facility] HEPATIC FUNCTION PANEL HEPATIC FUNCTION PANEL A STAT 0 7:00 PM EST 06/01/2019 12:00:00 AM [facility] BASIC METABOLIC PANEL CALCIUM TOTAL BASIC METABOLIC PANEL STAT 05/31/2019 7:00 PM EST 06/01/2019 12:00:00 AM [facility] EKG ED PHYSICIAN INTERPRETATION EKG ED PHYSICIAN INTERPRETATION Routine 05/31/2019 6:32 PM EST 05/31/2019 11:32:46 PM [facility] EKG 12-LEAD - CMAXX REPORT EKG 12-LEAD - CMAXX REPORT 05/31/2019 6:23 PM EST 05/31/2019 11:23:11 PM EST [facility] EKG 12-LEAD - CMAXX REPORT EKG 12-LEAD - CMAXX REPORT 05/31/2019 6:23 PM EST 05/31/2019 11:23:11 PM EST [facility] EKG 12-LEAD EKG 12-LEAD STAT 05/31/2019 6:23 PM EST 05/31/2019 11:23:11 PM [facility] EKG 12-LEAD - CMAXX REPORT EKG 12-LEAD - CMAXX REPORT 05/31/2019 6:23 PM EST 05/31/2019 11:23:00 PM EST [facility] Results ID Date Data Source [id number] 06/15/2020 04:13:54 PM EST [facility] Name Value Range Interpretation Code Description Data Amarilis rce(s) Supporting Document(s) WBC 9.6 10*3/uL (4.1-11.0) [facility] [place] RBC 2.54 10*6/uL (4.60-6.10) L [facility] HGB 8.2 g/dL (13.5-18.0) L [facility] HCT 24.0 % (41.0-53.0) L [facility] PATIENT TRANSFUSED MCV 94.5 fL (80.0-95.0) [facility] MCH 32.4 pg (27.0-32.0) H [facility] MCHC 34.3 g/dL (32.0-36.0) [facility] RDW 14.8 % (10.5-14.5) H [facility] PLT 260 10*3/uL (150-450) [facility] MPV 6.8 fL (7.1-10.7) L [facility] ID Date Data Source [id number] 06/15/2020 04:28:53 PM EST [facility] CLERICAL CHECK CLERICAL CHEC K OKPRE RXN SPEC DEBORAH NORMALPOST RXN SPEC DEBORAH NORMALTRANSFUSION REACTION SEE SEPARATE TRANSFUSION REACTION REPORT FOR PAT HOLOGIST INTERPRETATION.TESTING SITE PERFORMED AT [address] [place], [place] [address]PATIENT ABO/Rh O POSITIVEDAT, C3 SPECIFIC NEGATIVEPOST RX NAHID NEGATIVE Name Value Range Interpretation Code Description Data Amarilis rce(s) Supporting Document(s) ID Date Data Source [id number] 06/16/2020 02:07:29 AM EST [facility] PATIENT ABO/Rh O POSITIVEANT IBODY SCREEN NEGATIVESPEC EXP DATE 06/18/2020TESTING SITE PERFORMED AT [address] [address]BLOOD BANK COMMENT BLOOD TYPE CONFIRMED.UNIT NUMBER [id number] COMPONENT TYPE LEUKOPOOR RED CELLSUNIT DIVISION 00STATUS OF UNIT TRANSFUSEDTRANSFUSION STATUS OK TO TRANSFUSECROSSMATCH RESULT COMPATIBLE Name Value Range Interpretation Code Description Data Amarilis rce(s) Supporting Document(s) TYPE AND CROSSMATCH [facility] PATIENT ABO/Rh O POSITIVE ID Date Data Source [id number] 06/15/2020 07:26:44 AM EST [facility] Name Value Range Interpretation Code Description Data Amarilis rce(s) Supporting Document(s) WBC 9.7 10*3/uL (4.1-11.0) [facility] [place] RBC 2.00 10*6/uL (4.60-6.10) L [facility] HGB 6.7 g/dL (13.5-18.0) LL [facility] RESULT(S) CALLED TO AND READ BACK ANA ALONSO ON 5S AT 0725 ON 06/15/20 [place] [address] HCT 19.3 % (41.0-53.0) LL [facility] MCV 96.7 fL (80.0-95.0) H [facility] MCH 33.3 pg (27.0-32.0) H [facility] MCHC 34.5 g/dL (32.0-36.0) [facility] RDW 13.7 % (10.5-14.5) [facility] PLT 259 10*3/uL (150-450) [facility] MPV 6.9 fL (7.1-10.7) L [facility] ID Date Data Source [id number] 06/14/2020 07:43:25 AM EST [facility] Name Value Range Interpretation Code Description Data Amarilis rce(s) Supporting Document(s) SODIUM 140 mmol/L (136-145) [facility] POTASSIUM 3.7 mmol/L (3.6-5.2) [facility] CHLORIDE 106 mmol/L (100-108) [facility] CO2 25 mmol/L (22-31) [facility] ANION GAP 9 mmol/L (7-16) [facility] UREA NITROGEN 10 mg/dL (7-24) [facility] CREATININE 0.60 mg/dL (0.80-1.30) L [facility] BUN/CREAT RATIO 16.7 RATIO (10.0-20.0) [facility] GLUCOSE 89 mg/dL (70-99) [facility] CALCIUM 7.8 mg/dL (8.4-10.2) L [facility] GFR >60 ml/min/1.73m2 (>59) [facility] GFR ( AMER) >60 ml/min/1.73m2 (>59) [facility] GFR INTERPRETATION [facility] --NORMAL KIDNEY FUNCTION OR MILD DISEASE - GFR >OR= 60CHRONIC KIDNEY DISEASE - GFR 15 - 59RENAL FAILURE - GFR <15 Est. GFR calculation based on the MDRDstudy equation, which assumes a steadystate for creatinine. Est. GFR should notbe used for medication dosing. ID Date Data Source [id number] 06/14/2020 07:22:07 AM EST [facility] Name Value Range Interpretation Code Description Data Amarilis rce(s) Supporting Document(s) WBC 11.6 10*3/uL (4.1-11.0) H [facility] RBC 2.20 10*6/uL (4.60-6.10) L [facility] HGB 7.1 g/dL (13.5-18.0) L [facility] HCT 21.5 % (41.0-53.0) L [facility] MCV 97.4 fL (80.0-95.0) H [facility] MCH 32.4 pg (27.0-32.0) H [facility] MCHC 33.2 g/dL (32.0-36.0) [facility] RDW 13.6 % (10.5-14.5) [facility] PLT 217 10*3/uL (150-450) [facility] MPV 7.0 fL (7.1-10.7) L [facility] ID Date Data Source [id number] 06/13/2020 07:58:24 AM EST [facility] Name Value Range Interpretation Code Description Data Amarilis rce(s) Supporting Document(s) SODIUM 142 mmol/L (136-145) [facility] POTASSIUM 4.1 mmol/L (3.6-5.2) [facility] CHLORIDE 108 mmol/L (100-108) [facility] CO2 25 mmol/L (22-31) [facility] ANION GAP 9 mmol/L (7-16) [facility] UREA NITROGEN 12 mg/dL (7-24) [facility] CREATININE 0.57 mg/dL (0.80-1.30) L [facility] BUN/CREAT RATIO 21.1 RATIO (10.0-20.0) H [facility] GLUCOSE 82 mg/dL (70-99) [facility] CALCIUM 7.8 mg/dL (8.4-10.2) L [facility] GFR >60 ml/min/1.73m2 (>59) [facility] GFR ( AMER) >60 ml/min/1.73m2 (>59) [facility] GFR INTERPRETATION [facility] --NORMAL KIDNEY FUNCTION OR MILD DISEASE - GFR >OR= 60CHRONIC KIDNEY DISEASE - GFR 15 - 59RENAL FAILURE - GFR <15 Est. GFR calculation based on the MDRDstudy equation, which assumes a steadystate for creatinine. Est. GFR should notbe used for medication dosing. ID Date Data Source [id number] 06/13/2020 07:39:09 AM EST [facility] Name Value Range Interpretation Code Description Data Amarilis rce(s) Supporting Document(s) WBC 13.2 10*3/uL (4.1-11.0) H [facility] RBC 2.15 10*6/uL (4.60-6.10) L [facility] HGB 7.1 g/dL (13.5-18.0) L [facility] HCT 21.2 % (41.0-53.0) L [facility] MCV 98.5 fL (80.0-95.0) H [facility] MCH 33.0 pg (27.0-32.0) H [facility] MCHC 33.5 g/dL (32.0-36.0) [facility] RDW 13.9 % (10.5-14.5) [facility] PLT 170 10*3/uL (150-450) [facility] MPV 7.4 fL (7.1-10.7) [facility] ID Date Data Source [id number] 06/12/2020 08:20:25 AM EST [facility] Name Value Range Interpretation Code Description Data Amarilis rce(s) Supporting Document(s) SODIUM 141 mmol/L (136-145) [facility] POTASSIUM 4.2 mmol/L (3.6-5.2) [facility] CHLORIDE 108 mmol/L (100-108) [facility] CO2 27 mmol/L (22-31) [facility] ANION GAP 6 mmol/L (7-16) L [facility] UREA NITROGEN 15 mg/dL (7-24) [facility] CREATININE 0.91 mg/dL (0.80-1.30) [facility] BUN/CREAT RATIO 16.5 RATIO (10.0-20.0) [facility] GLUCOSE 98 mg/dL (70-99) [facility] CALCIUM 7.5 mg/dL (8.4-10.2) L [facility] GFR >60 ml/min/1.73m2 (>59) [facility] GFR ([facility] WITH [facility]) >60 ml/min/1.73m2 (>59) [facility] GFR INTERPRETATION [facility] --NORMAL KIDNEY FUNCTION OR MILD DISEASE - GFR >OR= 60CHRONIC KIDNEY DISEASE - GFR 15 - 59RENAL FAILURE - GFR <15 Est. GFR calculation based on the MDRDstudy equation, which assumes a steadystate for creatinine. Est. GFR should notbe used for medication dosing. ID Date Data Source [id number] 06/12/2020 08:20:25 AM EST [facility] Name Value Range Interpretation Code Description Data Amarilis rce(s) Supporting Document(s) PHOSPHORUS 3.3 mg/dL (2.5-4.5) [facility] ID Date Data Source [id number] 06/12/2020 08:20:25 AM EST [facility] Name Value Range Interpretation Code Description Data Amarilis rce(s) Supporting Document(s) MAGNESIUM 1.7 mg/dL (1.7-2.4) [facility] ID Date Data Source [id number] 06/12/2020 07:50:13 AM EST [facility] Name Value Range Interpretation Code Description Data Amarilis rce(s) Supporting Document(s) WBC 14.0 10*3/uL (4.1-11.0) H [facility] RBC 2.82 10*6/uL (4.60-6.10) L [facility] HGB 9.5 g/dL (13.5-18.0) L [facility] HCT 27.7 % (41.0-53.0) L [facility] MCV 98.4 fL (80.0-95.0) H [facility] MCH 33.6 pg (27.0-32.0) H [facility] MCHC 34.2 g/dL (32.0-36.0) [facility] RDW 13.6 % (10.5-14.5) [facility] PLT 191 10*3/uL (150-450) [facility] MPV 7.7 fL (7.1-10.7) [facility] ID Date Data Source [id number] 06/19/2020 01:00:46 AM EST [facility] [place] [id number]# SURGICAL PATHOLOGY REPORTPatient Name:EVERTON STEPHENSON:1975Received:06/11/2020ccession #:[id number](s) [...] By Gali White D.O. jzwPathology Associates of WoosterBradley[address] [place], [place] [address]Technical component performed at [facility], Histopathology, [address] [place] [address], [address].Reported at [facility], [address] [place] [address], [facility].This report may include immunohistochemical or in-situ hybridizationresults. Testing was developed and the performance characteristicsdetermined by [facility], as required byCLIA '88. The FDA has determined that approval for specific use is notnecessary for clinical use. The quality of Hematoxylin and Eosin stainsand as applicable, for all immunohistochemical and/or special stains,including positive and negative controls, were reviewed and consideredappropriate.ICD codes: Z85.127BTE2 codes: A: 66800VH: 83292IP: 49328KD: 91900BI: 52039WL: 73314E Name Value Range Interpretation Code Description Data Amarilis rce(s) Supporting Document(s) ID Date Data Source [id number] 06/14/2020 04:05:00 PM [place], [place] [address]PATIENT NAME: EVERTON STEPHENSONDATE OF : 1975REPORT: OPERATIONPATIENT NUMBER: [id number] STATUS: IPMEDICAL RECORD NUMBER: [id number] OF ADMISSION: 1DATE OF DISCHARGE:ROOM: 01DATE OF [...] We then went to try to do zfqfx-by-cps anastomosis, but the circular stapler could not be passed fromthe anus all the way to the end adequately or even fine enough to do imtng-yu-[id number]. Therefore, we cleansed the Anyi's pouch once [...] BEATRIZ Nassarictated: 06/11/2020 11:58DT: 06/11/2020 14:00Job #: [id number]: Abisai AlvarengaNOTE: [facility] computer generated reports are not confirmed orauthenticated unless they are signed by the providerElectronically Authenticated and Edited by:SHERRY HENDERSON MD On 06/14/2020 04:05 PM EST Name Value Range Interpretation Code Description Data Amarilis rce(s) Supporting Document(s) ID Date Data Source [id number] 06/15/2020 05:19:50 AM EST [facility] SPEC EXP DATE 06/14/2020TEST ING SITE PERFORMED AT [address] [place], [place] [address]UNIT NUMBER [id number] COMPONENT TYPE LEUKOPOOR RED CELLSUNIT DIVISION 00STATUS OF UNIT REL FROM ALLOCTRANSFUSION STATUS OK TO TRANSFUSECROSSMATCH RESULT COMPATIBLE Name Value Range Interpretation Code Description Data Amarilis rce(s) Supporting Document(s) ID Date Data Source [id number] 06/09/2020 12:00:00 AM EST [facility] Name Value Range Interpretation Code Description Data Amarilis rce(s) Supporting Document(s) SARS-CoV-2 (COVID-19) RNA [Presence] in Respiratory specimen by AGUSTIN with probe detection Not Detected [facility] This lab was ordered by [facility] and reported by [employer] ID Date Data Source [id number] 06/07/2020 03:33:02 PM EST [facility] SPEC EXP DATE 06/14/2020ATI ENT ABO/Rh O POSITIVEANTIBODY SCREEN NEGATIVETESTING SITE PERFORMED AT [address] [place] [address] Name Value Range Interpretation Code Description Data Amarilis rce(s) Supporting Document(s) TYPE AND SCREEN [facility] PATIENT ABO/Rh O POSITIVE ID Date Data Source [id number] 06/07/2020 02:39:11 PM EST [facility] Name Value Range Interpretation Code Description Data Amarilis rce(s) Supporting Document(s) SODIUM 142 mmol/L (136-145) [facility] POTASSIUM 4.4 mmol/L (3.6-5.2) [facility] CHLORIDE 106 mmol/L (100-108) [facility] CO2 30 mmol/L (22-31) [facility] ANION GAP 6 mmol/L (7-16) L [facility] UREA NITROGEN 12 mg/dL (7-24) [facility] CREATININE 0.86 mg/dL (0.80-1.30) [facility] BUN/CREAT RATIO 14.0 RATIO (10.0-20.0) [facility] GLUCOSE 92 mg/dL (70-99) [facility] CALCIUM 9.6 mg/dL (8.4-10.2) [facility] GFR >60 ml/min/1.73m2 (>59) [facility] GFR ( AMER) >60 ml/min/1.73m2 (>59) [facility] GFR INTERPRETATION [facility] --NORMAL KIDNEY FUNCTION OR MILD DISEASE - GFR >OR= 60CHRONIC KIDNEY DISEASE - GFR 15 - 59RENAL FAILURE - GFR <15 Est. GFR calculation based on the MDRDstudy equation, which assumes a steadystate for creatinine. Est. GFR should notbe used for medication dosing. ID Date Data Source [id number] 06/07/2020 02:21:02 PM EST [facility] Name Value Range Interpretation Code Description Data Amarilis rce(s) Supporting Document(s) WBC 8.7 10*3/uL (4.1-11.0) [facility] [place] [facility] [place] RBC 4.52 10*6/uL (4.60-6.10) L [facility] HGB 15.1 g/dL (13.5-18.0) [facility] HCT 44.0 % (41.0-53.0) [facility] [facility] [address] MCV 97.2 fL (80.0-95.0) H [facility] MCH 33.3 pg (27.0-32.0) H [facility] MCHC 34.3 g/dL (32.0-36.0) [facility] RDW 13.7 % (10.5-14.5) [facility] PLT 250 10*3/uL (150-450) [facility] MPV 6.7 fL (7.1-10.7) L [facility] ID Date Data Source [id number] 06/05/2020 12:00:[address] [facility] Name Value Range Interpretation Code Description Data Amarilis rce(s) Supporting Document(s) SARS-CoV-2 (COVID-19) RNA [Presence] in Respiratory specimen by AGUSTIN with probe detection Not Detected [facility] This lab was ordered by [facility] and reported by [employer]. ID Date Data Source [id number] 05/03/2020 12:00:00 AM EST [facility] Name Value Range Interpretation Code Description Data Amarilis rce(s) Supporting Document(s) SARS-CoV-2 (COVID-19) RNA [Presence] in Respiratory specimen by AGUSTIN with probe detection [facility] This lab was ordered by [facility] and reported by [employer] ID Date Data Source [id number] 04/28/2020 09:20:00 AM EST [facility] ([facility]) Name Value Range Interpretation Code Description Data Amarilis rce(s) Supporting Document(s) barbiturates screen, blood negative cutoff:0.1 normal B arbiturates Screen, Blood [facility]) amphetamines screen, blood negative cutoff:50 normal Amphetami binu Screen, Blood [facility]) cannabinoid screen, blood ++positive++ cutoff:5 Abnorm al (applies to non-numeric results) Cannabinoid Screen, Blood [place] ([facility]) cocaine + metab. screen, blood negative cutoff:25 normal Cocaine + Metab. Screen, Blood [facility]) opiates screen, blood negative cutoff:5 normal Opiates Screen , Blood [facility]) benzodiazepines screen, blood negative cutoff:20 normal Benzodiazepines Screen, Blood [facility]) phencyclidine screen, blood negative cutoff:8 normal Phencyclidine Screen, Blood [place] ([facility]) oxycodone screen negative cutoff:5 normal Oxycodone Screen AT [facility]) cannabinoid confirmation positive . normal Cannabinoid Confirmation [facility]) tetrahydrocannabinol(THC) 19.8 NG/mL . normal tetrahydro cannabinol(THC) [facility]) carboxy-THC 42.2 NG/mL . normal Carboxy-thc [facility]) cannabinol negative . normal Cannabinol [facility]) hydroxy-THC 4.7 NG/mL . normal Hydroxy-thc [place] ([facility]) cannabidiol negative . normal Cannabidiol [facility] ([facility]) ID Date Data Source [id number] 03/25/2020 12:06:00 PM EST [facility] ) Name Value Range Interpretation Code Description Data Amarilis rce(s) Supporting Document(s) Surgical pathology study Laboratory test result [facility] ([facility], ) FINAL DIAGNOSIS Colon, polyp, polypectomy: Tubular adenoma. 03/26/2020 - 1219 CLINICAL DIAGNOSIS Colon cancer 03/25/20201522 GROSS DIAGNOSIS Received in formalin labeled "snare colon polyp" is one fragment of hennessy tissue, 0.3 x 0.3 x 0.2 cm. All in one. -SV 03/25/20201522 Signed ALYSIA QUINTANILLA MD 03/26/2020 1221 ID Date Data Source [id number] 03/20/2020 09:20:00 AM EST [facility] Name Value Range Interpretation Code Description Data [facility] rce(s) Supporting Document(s) SARS coronavirus 2 RNA [facility] This lab was ordered by [facility] and reported by [facility]. ID Date Data Source [id number] 11/24/2019 10:27:38 AM EDT [facility] Measurements & CalculationsHeight: 69 inches [...] (ER) or urgent care clinic? 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 He has asked his oncologist their opinion on his ability to work and he feels like they do not want to address this. I have kept him out of work until December 14 but apparently [facility] has told him that they will [...] & Plan Problems:Assessed:Malignant neoplasm of ascending colon (QXJ18-D76.2) Assessment: Instructions: Offered to extend disability for [...] ElectronicOrders:Adult - Ofc Vst, EST, Level III [CPT-39213] Medications:IBUPROFEN 800 MG ORAL TABLET (IBUPROFEN) One po q6h prn pain. MDD 4. #60[Tablet] x 0 Route:ORAL Entered and Authorized by: Daniel Henderson MD Method used: Electronically to [facility]* (retail) [address] [place] [address] [address] [place] [address] Note to Pharmacy: Route: ORAL; RxID: [id number] signed by Daniel Henderson MD on 11/24/2019 at 11:26 AM Name Value Range Interpretation Code Description Data Amarilis rce(s) Supporting Document(s) ID Date Data Source [id number] 10/21/2019 01:46:48 PM EDT [facility] Measurements & CalculationsHeight: 69 inches [...] (ER) or urgent care clinic? No - [facility] Emergency room (ER) or urgent care [...] during this visit, including review of any aqso-idl-mmlkpfy medications, herbal therapies, and/or supplements.Allergy ReviewAllergy List [...] care.Diet and exercise.Assessed:Malignant neoplasm of ascending colon (MYX89-Y21.2) Assessment: Instructions: Recheck with cancer specialists and surgeons as scheduled.Opioid abuse with other opioid-induced disorder (TYJ39-K38.188) Assessment: Instructions: Doing well.Continue current dose of [...] FILM-One film once daily. MDD 1. VERENA [id number] ICD10 F11.10 Qty: 30[Film] Refills: 0 Method: ElectronicAllergies:No Known Allergies (updated 11/27/2018) Orders:Other Lab [[id number]] Adult - Ofc Vst, EST, Level III [CPT-19669] Follow-Up Return to clinic: 1 month. for follow upMedications:SUBOXONE 8-2 MG SUBLINGUAL FILM (BUPRENORPHINE HCL-NALOXONE HCL) One film once daily. MDD 1. VERENA [id number] ICD10 F11.10 #30[F ilm] x 0 Entered and Authorized by: Daniel Henderson MD Method used: Electronically to [facility]* (retail) [address] [place] [address] Fax: RxID: [id number] signed by Daniel Henderson MD on 10/21/2019 [...] rce(s) Supporting Document(s) ID Date Data Source [id number] 07/17/2019 02:51:10 PM EDT [facility] Measurements & CalculationsHeight: 69 inches [...] & Plan Problems:Added: H/O: colostomy (ICD- V44.3) (OVK65-M11.3)Malignant neoplasm of ascending colon (ICD10- C18.2)Assessment not SavedOpioid abuse with other opioid-induced disorder (ICD1 0-F11.188): ] Assess ment & Plan Orders:Adult - Ofc Vst, EST, Level III [CPT-66211] Name Value Range Interpretation Code Description Data Am[facility] rce(s) Supporting Document(s) ID Date Data Source [id number] 06/03/2019 04:21:19 PM EST [facility] Name Value Range Interpretation Code Description Data Amarilis rce(s) Supporting Document(s) Discharge Summary [facility] ZOJOAu4cIfUQJbEt61/UTOtlQYXyh0CtAShyDDd4DLqxFCQcD7JyWLT6jH1iXUS4NQwOKdKzXuDvHQG1 lbm [file] E+DQogICAgICAgICAgICAgICAgICAgICAgICAgICAgICAgICAgICAgICAgICAgICAgICAgICAgICAgIC AgICAgICAgICAgICAgICAgICAgICAgICAgICAgICAgICAgICAgICAgICAgDQogICAgICAgICAgICAgIC AgICAgICAgICAgICAgICAgICAgICAgICAgICAgICAg ICAgICAgICAgICAgICAgICAgICAgICAgICAgICAgICAgICAgICAgICAgICAgICAgICAgICAgDQogICAg ICAgICAgICAgICAgICAgICAgICAgICAgICAgICAgICAgICAgICAgICAgICAgICAgICAgICAgICAgICAg ICAgICAgICAgICAgICAgICAgICAgICAgICAgICAgIC AgICAgDQogICAgICAgICAgICAgICAgICAgICAgICAgICAgICAgICAgICAgICAgICAgICAgICAgICAgIC AgICAgICAgICAgICAgICAgICAgICAgICAgICAgICAgICAgICAgICAgICAgICAgDQogICAgICAgICAgIC AgICAgICAgICAgICAgICAgICAgICAgICAgICAgICAg ICAgICAgICAgICAgICAgICAgICAgICAgICAgICAgICAgICAgICAgICAgICAgICAgICAgICAgICAgDQog ICAgICAgICAgICAgICAgICAgICAgICAgICAgICAgICAgICAgICAgICAgICAgICAgICAgICAgICAgICAg ICAgICAgICAgICAgICAgICAgICAgICAgICAgICAgIC AgICAgICAgDQogICAgICAgICAgICAgICAgICAgICAgICAgICAgICAgICAgICAgICAgICAgICAgICAgIC AgICAgICAgICAgICAgICAgICAgICAgICAgICAgICAgICAgICAgICAgICAgICAgICAgDQogICAgICAgIC AgICAgICAgICAgICAgICAgICAgICAgICAgICAgICAg ICAgICAgICAgICAgICAgICAgICAgICAgICAgICAgICAgICAgICAgICAgICAgICAgICAgICAgICAgICAg DQogICAgICAgICAgICAgICAgICAgICAgICAgICAgICAgICAgICAgICAgICAgICAgICAgICAgICAgICAg ICAgICAgICAgICAgICAgICAgICAgICAgICAgICAgIC AgICAgICAgICAgDQogICAgICAgICAgICAgICAgICAgICAgICAgICAgICAgICAgICAgICAgICAgICAgIC GqPPOvYKJbZJZuCUMkEQDwIUWlFTTuMLVtBWOzJUBjHWLqENIuGROuPXPkVPJuRVMdSRKiQXo7M7ewEV PzANVcFK4vGOj7Jv3+KKwJRyQwULZ1btHtnR1ZOM8p w1FxGMnyIKYhu3MjACf1OP8IQFFlUOvyGJ7MBJgmim0BTDEyJBGyrMNMv6hiMpOiUWF3XFCpGfkrLI5S CWMeN4ftnqNoZOTxENJCUVelMBZBOTxgOMRIKUSyZMDpIvVhSTifBO0Rr3ZcpGC5YKh+Mm1PIA0dv8Dv MPigDqOaUZ7tdi1LMBdLIcOzH9QtkzT7ZTP6UMWqOj 4JDQMaSLGgcOUqZrBhZXNGBhHnI5HsjC64WPVRJw6+XAidjcKpCkaTNqY6TBEcd3YfBGr1MB5OCKNiNV a3zNBlNNqeI3arxhwcOQK4eE7ftmtlLaymRRihLL5kDTWSrRaaFSS0YME8MCboTYNzIDSzOL6sCv6uRT QpNWI4YqA4TZGETK7VKWBqHSWcnDDwSGCgDQMOGX9A CUhqRHZ0OPGksjJmmTDjRJebZC3TDKZdjvDiJyToKWSLPZl+Xq8IXD5re5VwTQfeYZRcVG5odx5TDFwM IdBaA1N7kRThL1G4ORixRc5QYHHzGISaMlZlULAIBGvpLH1ULV0wkcD3PL6XhPPaTJLzJPEsdJWhJOv0 Z07wtATmHCpiUI5XTSY+Naomy+Zh4QNLDwXJUkAKMcEh NgWBLHLsLrZ8AqT0AOs4UtO3ZeOP62iPeagcTxDVbhZL8SZM0sKBHjRISDQH8TwCPpoD8bbrOhZjUpPQ OJSbVkO18esUVhFZYpJVI1WIZiGd9CPORdO4MaawFfeVeipaJqTUUjDVFQFW2CVBhcgeNjvQQojXogCW 71fSwpQJ3OVp7XSqZeFU0rrz0MuFNnJj1QUEZvCU9O MLJsPKToCHXpCME8VBEyXjBqVLfxUDSsXAIeVPY0RBEhZGDrFD0IPzRtFNKxVAg2XZZkAXTsJNIise2D HZYeWAQfFDNfQEAsREIySCXbEQzoYJCaDLSzTBA6ZOLvPBGtGV3QTrGoOHTrOSDiTOIzMTPwXKHioa4X WTBpKCNgEDB3ZVYtBBJxEOUfJYpjJXTdVYR8YXL6GM AmAJGvQX4VIhHzKQDdYFhvBhOaGQTkQRWnpe9SOJZxPICbCBHrNMNqJYYzOOOpSYpbPEAoQVJpBBH7VD LbFABnVX1RVwPqOPToEZSiZzcnHIZcHFWchy8QTLHsVNBtYoU3PZGlYMXhINTfXUaaHHPoBZF7OJI0GJ OeVKWjBW1ZRmXdEDFqYFA2NEIqLEWrMEHmry4CRJTi FSNpHMo9WFRoGXQmTCNgEUmcWYOnNCE6XeP4KMClDOKfFE7SUsMbZYFhYNN0ODNfMEClWATjkp9QQVAb EATeSkZqMWXoPDWgHCTuQOnwXSNgWOS9LSp5LQUnHXJqCR3LGxYkQHFnDTrwCKKwMEEgYZVbiv7MKUYs SRPaWgI8LDRfYTGrGMKvMQwpTITcOXK1HEH1DVWwJR SwOA3AUyRgRAKaQLj0VwbsVFAbKUGdye6ETFIaDYKbEQmtFFWhCDLnFNIaYHixRVXfNCP3HiC0NZOdHU NyGR2RLuFnJWXfTcD4TlBpVTPmFQDlty9YAKBgHZRwAFi1GcYdGIMnOUGbLEpkYJKqDBCvGSP6RENqRM YiLL1RPrFaOPgfBZZFYbv6IPsnP4c9SCRdOR5YM1Mo w5PwEwohOSYKZJqbMA8fdeJpKMHhJq6WU4pLXhxiBqOzGREjLTnaXUA9DQYrF3BrYqK1ADnhYGRgJ8Us PO7hYTFiALLpGRUfZTBaWcZpWIAvFuTyKov5Y8IdZYUgEqH8AiZjQZ6AUf5NKsT0DKF8sIOzCw2ZNrFi SYyGBsKeHR1ACZh= ID Date Data Source [id number] 06/02/2019 10:47:14 AM EST [facility] Name Value Range Interpretation Code Description Data Amarilis rce(s) Supporting Document(s) Consultation [facility] HVVOPk7zBnXORcKy24/YNKwvYJSoy0JbEJypAZf7VWzfQGSoZ1YkEUX5fU7cKMU0ERwBYjQmJmJtTPJ2 lbm BmAmtJEmUlJWWlBtmIUaEvZZmlNmcnvNXwKI5RiYS3GDKyT37yZXZmKSTdR0YlSZLgHDf+Wi8YFNDyvT JfCM6ZTtdK4Fxme2r1IX5mSO4IYpoqc25fmqjFORO56LSYz47eTU7nLaXMoVmLAde3UJeNXi827BJxuL brmyrwxgAvaZJ2E5N1yUbIM8FnFuB//6pBYoMgUMX/ 7haZmkmpGr34N6zjrGOEf/WZ2cmWLBILWMEF/HfBPrpnczzxx7GYzdvqe0aicnfptLY8uYX01Eq96EQ0 mbZYKHGfw3jNFvVZwz/55zfxQMfoahI7/5nk2dms4hH1nzpgJP6KrT2Sf4xaaCXfdrIhXxGwiwNSyA5m AzkeHgk6OloabcCgIRhb9D9x4zo0fN3glaNArfvjR5 Upyz/oFdLIGjflY4H8ls8SKsRU7uF8y1TVuWHLl5Tfn2/FqDqreA0Wj3vnlbb9m9UaQlsswGl+KAxn2Z 9lEQZxYbygToxqYm/FU1wafTNoVdFt3s8N7Bw1bs6Nl8TifuBsnT11Tn+vyJr6itcIrOOzbSu/cSQ3Fc /bQ6KVImPDCFNHb8/xwf5fRL6mvndfR5vQT7VpfjvL kP71V2WtTgqfQY2VSAlFilpG4LroaixqEHTWQB4l75dDx1BldneWfhvXQLt6pgiHmkbNyXy7e96Dvlog tCzwZm2nZvjs4rCdGbK8DC9/hKx3TalQBuvDOc32/fiUfA2J5nfrU4jLnT4uAf4SbTCnPU2gaOlEdM7n D85Z98T2xSt50nKepr4f6XI04pIIO2jSL6BE/Cd10Y [file] ICAgICAgICAgICAgICAgICAgICAgICAgICAgICAgICAgICAgICAgICAgICAgICAgICAgICAgICAgICAg ICAgICANCiAgICAgICAgICAgICAgICAgICAgICAgIC AgICAgICAgICAgICAgICAgICAgICAgICAgICAgICAgICAgICAgICAgICAgICAgICAgICAgICAgICAgIC AgICAgICAgICAgICAgICANCiAgICAgICAgICAgICAgICAgICAgICAgICAgICAgICAgICAgICAgICAgIC AgICAgICAgICAgICAgICAgICAgICAgICAgICAgICAg ICAgICAgICAgICAgICAgICAgICAgICAgICANCiAgICAgICAgICAgICAgICAgICAgICAgICAgICAgICAg ICAgICAgICAgICAgICAgICAgICAgICAgICAgICAgICAgICAgICAgICAgICAgICAgICAgICAgICAgICAg ICAgICAgICANCiAgICAgICAgICAgICAgICAgICAgIC AgICAgICAgICAgICAgICAgICAgICAgICAgICAgICAgICAgICAgICAgICAgICAgICAgICAgICAgICAgIC AgICAgICAgICAgICAgICAgICANCiAgICAgICAgICAgICAgICAgICAgICAgICAgICAgICAgICAgICAgIC AgICAgICAgICAgICAgICAgICAgICAgICAgICAgICAg ICAgICAgICAgICAgICAgICAgICAgICAgICAgICANCiAgICAgICAgICAgICAgICAgICAgICAgICAgICAg ICAgICAgICAgICAgICAgICAgICAgICAgICAgICAgICAgICAgICAgICAgICAgICAgICAgICAgICAgICAg ICAgICAgICAgICANCiAgICAgICAgICAgICAgICAgIC AgICAgICAgICAgICAgICAgICAgICAgICAgICAgICAgICAgICAgICAgICAgICAgICAgICAgICAgICAgIC AgICAgICAgICAgICAgICAgICAgICANCiAgICAgICAgICAgICAgICAgICAgICAgICAgICAgICAgICAgIC AgICAgICAgICAgICAgICAgICAgICAgICAgICAgICAg ICAgICAgICAgICAgICAgICAgICAgICAgICAgICAgICANCiAgICAgICAgICAgICAgICAgICAgICAgICAg ICAgICAgICAgICAgICAgICAgICAgICAgICAgICAgICAgICAgICAgICAgICAgICAgICAgICAgICAgICAg ICAgICAgICAgICAgICANCjw/hTUbU0mdjSEtvuF3Q5 vqYn5PGd6PYW6wn4WgKPXvCHixeaAfPfpWDjVpIVBnSsmEEjy2GSnmOZ9AgDUqT0VmR5GrNQadXN4WNC RcPFDdjGHkZONiRIAyVfE3QNWpPHidAW2UxCXiONwcKCTvSFGiKbFcBKQuNV9IQCQtY176ceSjKp7TGb 6ESgItTA7jsq4MQWqwEXFlGzhIEiu7PGavDK4PlGFs lFUzVZVmYXOBXnOjL5gfr2ZsEmNtTCDDYXujXB0Gu4ShwZMxVXt+Gw5WUR5rb2GpVVabMXCcDU3mep0I SFlWGmDjF9RtqQmcSLUpmnK6oQMaPZK7WKU8MMUcOQKxNCZovA2ohkVqDK5FJnEuKXRyLA4qFz3rJCCe VEI2UlN0YJIMAI3KTKGxUZEpoPQvCNWvVEJXQQ8AYN hiGIK7RAExbnSgsZWtTAevLW0OTNFqqyKiJJufZGVQDMq+Gg9GVY2ul6DuVCcnUEGqBG6slq9FVNdFYx ReB5B0yHAoD4Z6RIoqNm3SXYEyNIMrCPkbZHKZJPdiYL4SNX4cvsV7NT3IeDKkAHDlYKYgjFHjXSt8H9 5mlOCbEZbaGI3MAXJ+Naomy+Sg4UFONeRSMaEMAgRhCn QWNCFlXkJ7BuN8DDq9EfX0ItEX11nZjgjjPpDVknQC1WQG3eXOShDVJNDX9EzGOvsR8bivJhVTSmTSRY KmJiX61xlPQfSMPjTVP2TBBjRm7THHLdM6RauwJfyDswrxAxVYEiBAXKHZ1ZXMnqjmAakOTleNfgBM62 sNbjHB0BTm7XKfJkHU4diw7QlZDaBy0NUWMfZu0RIV WdIXUkXPDwIPC1JPZnXvErEPvbSCWoMQPbOKJ4WSYpKPHdDB3AMoEpHTMyLNG4NKeuWNNeKQZjvo5DIW EuEZFaByL9TUKgGMCwXESpXGrgOZJfQIViPLY3ZWOpFQTmEP0JJeWoBRUwGYBfVHgoCFHxIUXzko7QFX AgEWDkEoC2VNQyWOBzWKMxNFcwYKKbAAS3BaS8LHFz FRJnXZ3OQqTyCPKyVRF5SFOtTFNpXZDwpm3NWVOfXCAnTlK3HLUeXKKqCLUlWTziJEPsXFZ5YfQ5AAAu QHGbYE8NIhUxNDFkWQj8PUXvWRLsRYXuab4JJTIgYDTrVHfsHCQbLCYgMSFzMWxjMKTiEYW9DRO7PKUc PQHlCL8HSsEqTVEuKMhpGIWwSWEwUBMudf3TDNMaHM IdWAO1RLXqPZAyTAPzLFxqRHJmDQYiNqPtUEHbYIOzED6WEpYeLETnRTD8WtZmLDQwSRJces6UPKNzKH ToDSn3GBHkXPOnXYXxIPacNPPaZOIaCVZkCYQcUTJdAQ5GGfOwOMIcSSS4ZcNsDXLkFJAbty2SKFNhEH HrPgBqUITdCLXaFIIxFAt6pgRgkKPbVMw7GF3QH5Os paTfBzEQMu5Fh961KBTnHDRwDj8UC1cnJz8bDFXnGRCFKl9TNYp6I7SeNwbnSVVfHmDuPSI9GkA4JaIc NfGfMud9TEQ8KqE+HSf8MDK5CSF1MHBeEFY5BSsqCRKkJdKeKBVmSAhcCgGlOo7wZWBJUr5+DQpzdGFy wOxcNQQROhHjAXH9YQakHQHFXd9B ID Date Data Source [id number] 06/02/2019 10:11:53 AM EST [facility] Name Value Range Interpretation Code Description Data Amarilis rce(s) Supporting Document(s) ED Provider Note [facility] UFQSDx8uSeNSUyGc82/DMBwmZPQli6BiMAufPLp2ALewTCTzF3LqITE4aJ5sDOQ0BYwWYfRjHcGnKVZ6 lbm [file] post form remover+VMQiqDXcNNCeVxeHepZp1dW5mkOQvbK29CI5iX [file] A4QKD1LIuvYQWJLr2M ID Date Data Source [id number] 06/02/2019 09:25:13 AM [facility] IR IMAGE GUIDED NEEDLE DRAIN PROCEDUREFI NAL [...] injection with 2% lidocaine, for single step djos-mhn-ipumrn technique placement of a [place] resolve pigtail drainage catheter into this collection [...] and uncomplicated ultrasound-guided left pelvic abscess [place] drain placement with sample sent.This document has been electronically signed by Gio Valles MD on 06/02/2019 9:22 AM Name Value Range Interpretation Code Description Data Amarilis rce(s) Supporting Document(s) ID Date Data Source [id number] 06/02/2019 08:38:17 AM [facility] Name Value Range Interpretation Code Description Data Amarilis rce(s) Supporting Document(s) [facility] LHWLOx8zBaQNJvLl65/IYAelLQVmw0VsJWogSHf4HYavWLThA3WxOIG0qZ3wJZD9IXgRXpPjOiQgDET9 lbm [file] dgKMPUIaf4GBpVRvYvPB2ZOBw= ID Date Data Source [id number] 06/02/2019 09:54:50 AM EST [facility] Cmnt XXX-Imp : Gram Stn XXX : 2W BC'S Seen.2Gram-positive coccusin yatli3Gvpw-dvmdslby bacillus (organism)Microorganism XXX Cult : 4Escherichia coli (organism)Organism of questionable significance. No further workup kl2Cpiynfwjcoyjj anginosus Name Value Range Interpretation Code Description Data Amarilis rce(s) Supporting Document(s) ID Date Data Source [id number] 06/01/2019 06:20:06 AM [facility] Name Value Range Interpretation Code Description Data Amarilis rce(s) Supporting Document(s) Leukocytes [#/volume] in Blood by Automated count 13.7 10*3/uL 4-[address] [facility] Erythrocytes [#/volume] in Blood by Automated count 3.45 10*6/uL 4.6- 6.[address] [facility] Hemoglobin [Mass/volume] in Blood 10.3 g/dL 13.5-[address] [facility] Hematocrit [Volume Fraction] of Blood by Automated count 30.6 % 4 1-[address] [facility] Erythrocyte mean corpuscular volume [Entitic volume] by Auto mated count 88.8 fL 80-96 [facility] Erythrocyte mean corpuscular hemoglobin [Entitic mass] by Automated count 29.8 pg 27-33 [facility] Erythrocyte mean corpuscular hemoglobin concentration [Mass/volume] by Automated count 33.5 g/[facility] width [Ratio] by Automated count 14.2 % 11.5-14.5 [facility] Platelets [#/volume] in Blood by Automated count 969 10*3/uL 150-[address] [facility] ID Date Data Source [id number] 06/01/2019 07:04:07 AM [facility] Name Value Range Interpretation Code Description Data Amarilis rce(s) Supporting Document(s) Bicarbonate [Moles/volume] in Serum 23 mmol/L 22-29 [facility] Chloride [Moles/volume] in Serum or Plasma 102 mmol/L 98-107 [facility] Creatinine [Mass/volume] in Serum or Plasma 0.60 mg/dL 0.70-1.[address] [facility] Glucose [Mass/volume] in Serum or Plasma 88 mg/dL 70-140 [facility] Potassium [Moles/volume] in Serum or Plasma 4.0 mmol/L 3.4-5.1 [facility] Sodium [Moles/volume] in Serum or Plasma 140 mmol/L 136-145 [facility] Urea nitrogen [Mass/volume] in Serum or Plasma 9 mg/dL 6-20 [facility] Anion gap 3 in Serum or Plasma 15 mmol/L 8-15 [facility] Osmolality of Serum or Plasma by calculation 288 mosm/kg 275-300 [facility] Creatinine/Urea nitrogen [Mass Ratio] in Serum or Plasma 15 [facility] Calcium [Mass/volume] in Serum or Plasma 8.3 mg/dL 8.6-10.[address] [facility] Glomerular filtration rate/1.73 sq M pre dicted among non-blacks [Volume Rate/Area] in Serum or Plasma by Creatinine-based formula (MDRD) >[address] [facility] Glomerular filtration rate/1.73 sq M pre dicted among blacks [Volume Rate/Area] in Serum or Plasma by Creatinine-based formula (MDRD) >60 [facility] ID Date Data Source [id number] 06/01/2019 07:04:07 AM [facility] Name Value Range Interpretation Code Description Data Amarilis rce(s) Supporting Document(s) Magnesium [Mass/volume] in Serum or Plasma 1.8 mg/dL 1.6-2.6 [facility] ID Date Data Source [id number] 06/01/2019 07:04:07 AM [facility] Name Value Range Interpretation Code Description Data Amarilis rce(s) Supporting Document(s) Phosphate [Mass/volume] in Serum or Plasma 2.8 mg/dL 2.5-4.5 [facility] ID Date Data Source [id number] 06/01/2019 12:28:17 AM [facility] CT ABDOMEN PELVIS WITH CONTRAST [id number] AL RESULTInterpreted by:Russ Sanchez, MDPROCEDURE INFORMATION: Exam: [...] rce(s) Supporting Document(s) ID Date Data Source [id number] 05/31/2019 09:34:12 PM [facility] Name Value Range Interpretation Code Description Data Amarilis rce(s) Supporting Document(s) [facility] TUKWMl4uMnAVNlHmb2KmWuYaZOTaDF0efxx5Z2I6lHMwI8OqxKEuz8idH7IbF4ZmXMGzYNHGSO7DeJZl jb2 [file] 34RwonMChRMVzlDu+1ZJt5x835WMO7wBX6Akam+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 0I/+NMZ6v/zUSYqkCh5h/PqYNMK0UPJOH2212ktWJ4GeLsg9ngkyWPECLRQKU2au7XE7S82qfa1iggyc XG4uYKsj1s7ax5897UudSVSdaOG9PSTuL3jrFbjPC87RYdodWc8x7plsf+yrjDjzB70HUWMpkHR8fWiY RADCgHKyE9tvmNH5P1xUKv7yfCWD3vVoCHXjK/qBXx f9rOGYO4M7037oiteLVRU1LQwUBepX1btKLhJTaIx1RIBa2QBCQEHbujmvz61rtclZ6edCBmIumIDbZP pJb4mLeD529sr/u+uma1zqosxp+NvGUPHjcOfzc412qR997BsOEtsXHMhvZIC4KjO3+GWZt6356vBOAA 85zSseHBknTFfDzbFl8p/opuLT5cdIbDUkOYyvaDgL nBDJgGXSV5hOBt923x32wltADvCP0Y6Fj20guVwFiALyjbEgmk213QhKD+P7IwQz2dN/FIC6edjoFdO5 6Q8E275e6gbas0mKFR9TYhIdDAFOVK6deBkbg4/C4F40B8mz9+baLcdx+LUe77S+gcinpOOFHnXZT7/n A2z4UsW0vAY65CWQdWhcLcV1bPwjQJIWKoyuYnCxXM 4GBE4IBzt1Kw+89mlLAaWpu7ObLMpHOLqIAZG2Sffqr4hcaPbcoFyp+9EPmbQGFj9j7eAr392i4JY7l9 e8MdduivrVuaYoeltmWrtgtc72J2BnH5XuzCW41lAHkQsvScl/O+szn1jJ/mhFoZ3GxF/QOH1j9iR7rh Simon+woU8tD2G3fuWmBCaL0IPa/NVErzDs0p0d0Yv50 [file] CRISTY+M5BkBTXaj4BU9TyOoQvTNxETFZOdQFevTdtrci7sh9v6TBv3+cxjCV6YynthiE/ymqeHg3i9z2G9 xG0Rf8mz5lmKM/Vj9nxkEPaXlRZOdqfBRDM5LT4uM7 pKuFAyonvqR3ufeQiYTvduhXFUMyonwsUXKTMtGDds6idyDxAh8mDsEJIkNh9evcTfiXVZFNaVLUR9re peIIS9je+0kwG7WHa008YNVCFYeTpV2jc167K+k3Lft/m1u9ZWFh0Is6iLUHvgIJpcDB0eVAnbyNTjbx T2pYNv0SPNBZj4ImlW15Z8Z/XrBtlA6rwJU+IH0ekT +1EseLZOmK1iSBLSRzHaJWUmjfijQ6wvCWTnH2exM6XnGmtsDhhYmUPPNayYA3AqxLHM/VT1T0rZUIf3 LsAfMFBmVTrqLYWcegXcSrhrs3oHmR7hspGsLU9y+cSYxAeT+MO3yg7a+P6OBt3T5kODsdrSOgVSJB6n D/KRy9V18y/soD+QJ4DGJquS2xzIA+Q4hpL+2bnvbz 2IH/GzbMHgKSg4PFrbVoyaeDDXbgrAfPZBdrlk+Wfnvm/rYvFJiSQHZng267VjmyxNcfy6uGp7KFFnz2 EOUrCeYAsQQ+b153tb9WE1DO2RQuzstsDWegiwpvQ2uGRH9qUfs6oXUAf65nRlhy5338OyemJGkj2J7W 4qmqu5I3KU5OTcwFx8+RuKK/X9k/iwq7mXtu+hKWxl senior svp/n8/zFMjUN3Eq9c46Isi/4Pf/+dxtepm58idyUV8B3//ruibsj42nD/fV/iXr9ckr/vUxruruc75Fy 8+72t7Bfga4Uw/ErJ1R+/5Wf/Yz2/JFpGxM0yrwbK4T4I0qE3k6/nb7L/MH2t7qLxc6k/2i1f5rxP/wn 70hOaT/3Jtvsu6oMs2abD7//iKtERB8spm49R9+f0Z 5Ae5a8/cJnca8SK68pM+0sfP18uhygWLbvv7U0uukaW69Hdu7Jvzyi+60Bdn/0zgC1fi0RcP/xEmr4zS 4sq3+rn3+/S9SezH1EZ/9+73pe/TsePf9+H/r9J+/HUk8rZil/i5qFggf/fX+g/Hnsp6B/f5h///6D/L ttP8S/Jph/Z2I6o6cqlgsxvr/7inU1birS83n/baf9 fR936wIo4bsn8I91Nqy3s62d77aXdO6L2x/z89HvZvdocyMTNY2+bOnop+Vjhy0f+4ylvOjVUufF7zvw 6j36pwR3ML4K4hRGF4Ssq5e/30pM3/qj65wGU4u/ShAUEx8yn7nRRmS80HL91tjyPKHku6giRErkXsy9 zcsnDw21Duzs9hxR3nqGTC0QesT7dBDbf88M/FUMtG fl0J6j285m3nOIJxD4l/N+T0c/KiU1xVWC4I1bMw+49og4r75zk5Ytcx7Bo1n53sC1PFkp97sok1fo1R i3hLzPChd6vti7OqZNM6tMoKhp95Q0I/KOivIrfod/Hg2/V80TtCnjEIQ3cQW/DdjzWPJmP/9+L+t5Ps nEcmxAq7zB1/Wv0Qvpd6N07kz/tmWDRmp4Fievexf0 tw1D2qM0DPd7zGjfS2Bo056yn6JyPlp4z0lp1/SdL8yza12Zgh+6KtlegcGEoj2v/HHb/9tlt44E4muB 5f5uO5obOh3Alqqcqat/gylvzod6TD59X7929SFuT6du4fxXGX0+M/D+lGjgroG8JA8xgITMdPhtZz2y 3q1HBleudr2rgwCdFsgdb21OL77sv7+/Z+GronLaay f0dsv1L6/d25Exk9BT7u9n+Gq35/TvSg9/n+huK9d5asCV+He6Z33gngjIs0Aw84vHSsbjJKq94n+s38 kgA0XPoTLWitkrsLFt1togw/QBX86v9Xg2syh5jHsC1w16/swPNjR0vop3ujLXV+yXEoP03SdTOaPFOD 9WDngoardSwN/ra3q7jCjEqZpM88/K/84pGrf3t2/y ecBviqu3XD5elntt7tbMx/QLdy7y41lgBF//qtyHJRo863kg/TPmJSV853UW6J5eiDX+x79doSHX8dl7 1p891DMvciAHuKxseJXMBbz+Tex42AQfWIe6jcccCPqo1P0U268xQ96t+H0cv/HDV3/g6OlWB14nQdo3 27yezC1uSB/P6cYHi8jltlGNK40qcCuWo8xOa59i3f 5D7//J+zcfK+J23LvlJ3Eukpj+O/CxNj6S1K587ODZL62VeRCwcQ3efmL7vE14nQR6c35n+lfvoH+Fr9 v0boqEcwAaA86yqdxvsKx/LXzlcha+7jDG2BmWM02ZW+6mzytn7hj8m6S8Z65O9bYJ5/Ndu9Utgtv12v Pklf9c+Xz84lkwPW9EIvmTn+Vz6Xjr8QJlWikIR1Yq q/0Qoxq2obZDxfv0VgzJyibjrgBuEC/CV+1N1t5+QuulgXpknuWbfJXnBF77+tqay115asRaijep2Js9 inLczlWk849GuiNiBz0j+xe+ww8KBpNc+Go/1+B2Fy3up2ImKHugjbzQ4YDkdPHk7TLIvmb8jiVX9ZGg q/0O/AUUi79UiwEa6ipyRzmP0V1UTeQ+auGr/W05el 04vu3eE4rDwseZFqO9oC//vPDVbg/6d/bj/xe+4i9gA73H+Pbe4Axs/ev7451pNfl1slUOoOyVZaSj/7 5wF0yN24w/K+ww1a2wx+t/5OolrkyArpEyHdcl65a88tga5k5p0gXiaOeE0mMnb5f/kthtvAZ3LxV4c6 fI1ga6wCBT+Zb29YP4dWPEIh74JeHTslRZlF1yYOow SQ+hvN1LdX/U/gF512woty2/1kkgu2prlV7Iwu+a0o24Hh/az+28M08/Hgt7Rz57aqyl8qKw9x/AV0X4 6nmzqd/fy+mV3RaJY18g4bM/t/NtoJw4/l4ulhd4HuYqeiX0tIRVOY0oLKXc9UzJO1W6djp9AhpP+Erl C18p+Vr4yt/d104N5lfy94LMQ43A/6y0aY/TInylBP TVf2vZtn563taD6Edky65YiqdkyWjbiZnOjqrvR+rmUx1CzW+WP1+S6zbFM6M6z4uVoVHAqF0Hl/CV5F e1ozgdW84EC+1n9G+QkLCxb3D/6/FOVvr3JI/g/XHsU/Fo2OTZL7ahLS9iCzHJaz3oejnZ2/Xla9UvoF RytRxbVWl732UVC5jZsh/bu2PwrA397BAKhT8eeKRg G/pX+EpytRPPWWnQ7/vz6Ked+WahBB36wn/ys5Kjkg+W2Zvb2dwKf8QVCTeeqal49x5YE/4txld+Pv0l fCU7D/Rg0NVJ8vk9WU3TjV2Rko/kf+XN92jyR3tEz55Py8FgNS+LjgaMf6D2NlFubTR7vI/r0UOv+H2t V8Kscp46KzdKGvF+0wu2oNcHH8At5BF7+qeA4LYdS+ QscVf7ZqphHb+Xcda/RfErXZih+ZU1rVfHsTurK0b2vWcl1N+RQ3mmevltAmq/5kYDN9Pi1g8K7Ch0sa HBhs3OvnxcRg5q8F+UoctG27j/rjTm/p6aufebB/c02TP90s6PqBmshKZR+NtEV9z2nn+xg4ky78hj9r 2c8FcT/xljRxzl1c8/hV9kfVX3Tqh+8r0qC1/ZTha+ lh3ncBEw0CcWma/OC90OfjC84qkODt+v/dTnrI+n9NUljPi2sHPl0Zoe8Ryt+S6BdmVFnZyI0LUMyo8s CVg7W79U+2LK0NyXy86oFdG+oPL3vD/46PmUr/8OzWn0c7lLsbcImm1N6HRZ/sJXGpsrL/l9/6wHazrr iLf2KCrrXl72zXSu0fqoZvyoI8H49/RItwvCRSo6Um XraGaxP29RvwYjH8//6TXMe5JG6TjDdfSd0PmnLTO4cgzKMhT/0R6qieL1/Dyvp3E9u3704tffU78nid 06zdyT3k6kDP/VprgrdqMR7xCrVCr7+K/WoMj5f1c0Kua93pzPn3y83T+sxONtM+ToiEo3pyWXlt9z7n 1ql8Rgy0YWvr7NihW7F0eo203Yy/Q03gFdA2j2Ce/g iTo7lIFUwnfJNy8br75v+oeq+JUS4hS/ck1W3frLpa8O86QPAxmW6pti+kmEO2D3TolTbxwll7qIwpwm z2L8XsH5O6cAM3wlfJwG+Dxd3OYaprao5rlmvSFGiemBR2I2/HMVvpJtC1/JloSv/H4+1XqboO8Oo3Mw 2tPW0j9+zqVQlu9yisYYn4kC7ep9p7WbHYMGn9GWwh hhqElFvku4P7jr23RDFmARAQrHFg9Udi+cdHvW+3F3i4OJxCr9Hkl34IvfPBkzi4kcXDpYo5jD/LPwVf Zf5BHvmerUnix+Iq9EY0ytvIycH+Uc4g28r4r/UPm2Z3+k8gEimFghIXEb0dj5LzzGL2dgT/N2Bo1RJz 1e7m6Mhl24s9F/sGJ/nXmS9theW9Nrrgcjnxh+8rP2 B/XOwle+uePd308PilnFeH4n/nRb49vaSzz3/X31r+a4ha/272c/IQUWf69mMPHwCnllhRgXI97i5CPh jt/Xmmsbqtlv64k0Vm0Blv4wAeiBPtmUBrlTBiyXMc8RNaklG/rbJa/f30Ja6K6Qivrptaj8hwI/VLU/ 6OdAe+Sul331kku0Gpokowj6JFFa8Jk33x6D/Ko9Z3 +/KX6l7B/Fr/z7seem+ESxUd1w/1l6J2f7wibhX3mG3HtqV1Z+fZZsGiuNhsEVNiu7LbFqklIo9edT+M tnAKo15ad0/whcuH19xu5kbP7856PC1uU+wwgu8848tue5Jqf6eYo7yCVKs0/VdP5q5/a2ve/QtD+4n9 urE5y/lpubeU3QQe7N2XdPh7w/TB614MpzWT9bCnav n/tap2woG1l/NewPNsWvZA/26Z727ZnkJJGw/Xz0r/iV36/4/zfBHvKYYg3psVvZiOMl0M5g+ewvrJzd t/6L0wp9q5/PfkpT/GphqlbOfmgrCb+ko7Vrsz8pobkLa1wK8oR3+qUc/1tD5w6whqqtic66Zb0t9/H6 70jMy1UNbbibm3SBpk1mnOrQyt31F0+7hzNs2z1ulk /8M5LXRd/Fpw4gNiz5HZitaenhUkmJL20aap4Aj/MxD0w14Q+udNy3/I41IxmEO/NvU/fSlNX3eFbbHj zRGsZvO/XLHfxWNfu0J/2l0Ccorj8wu8MEi6/67v5tW5U1D/0ybj57Hz755hsy/Yzfz/5+0/kr2f/CV1 o7rKTb/RznPMNKufXcsTJuPT+3NWiCJfm2ctO+kn6E r4qfT7/o/JV/awcbNQwLtb4qZd0zIuc1f5vaza5il3zpcCL1P52sbD78zZ3lMP/VhK9kY/3oZ30qOnE4 aaqN2mN+Ly/+b/3Ec1o/+3Rdu3bxfqv3Ag2UY4GU+4NN+Eq66h2/f7HaHC2XU/p25MESHX3pmfMp/NVO yd0bs9J/85Y2o5N5UxptVPt66JoWV4vtqA/bwPgdZz +lYX+xRAgpnq4H/Mitzy+Ktx9o/aOPsLTfErywV/MI99sj0m/8tkNs2bANnyslLwgSmz5gcOY434KDKwbY ve6raBb94vxY3++Ko/cj0pKd9yRe//exuydqVa7qz3aWMhs+suO31iHNEcykuZ+MNX/Crispin/1aabG/S82 +7Jo1oggObn8s6ic02HwH4+12Jc8/Bk/Wj1V1fxvZZ r5K+Ha54AmZwgQ1zVXua1oEvTUgvZcNhOmV0c5wG+hfjg71Pg+H7qb1tuS4y18o7JGRY+x9z7DhljKxY aBQccg37b3jV0+d3/vq7ueuHuf7REuNVUTo3Tkj+xuwqu18Hfq/5d+136/khU5Ydx+UTQvGr/Ka/bl0J XykJTfhK3+WvafRgdB5ok/Vg5DP/Rj54I/I1Stp7ca W2tB4Y6NmsVdoVsZR12JyqgvMkzs+h81f+eC14UoyJL24KuU5JqE8W5Gd7rwDNOQkONgT9tqtN+Mrv5N GdzsEY0rLBe42h5udi4szwuONnLKCo6thNwBG2815xLm3gf8azjSvAfFo25Wr9vfZK+Er2WY9/Dp1vdw NcevFR8Vn10NZa3sPaip4hldr3+01i8916qtazWsdL 9az3Q/oBtdQuF7Q1+Qsri/Vtm+UJGOIdG4u3ET/V6uR6Kygz9x+e5/kCvDCd6ouxd1vv7/Dnever/tvklfP kFf4yr/X4w+Io7KPIE23M04u31q1pm/CV/S5SQ5imgko43B0+RwpTQQf4SSV4wCLDIUT+FarTyx1hTtI iRPfWFmqu/1x4huh+WBSOffZf604+83uCvHmp97cbm NXDMNUkKr00FDE5tc4+0cR8M/MJ0Ugho8qdLIRAF5/8ZyVlPr+lr17d7pvl/yF6PBX/cy/Kx31/wong/B RNyI5X3y/4xwQw5C7+8hein/tS7NPfH5SB/mqc/ZTQ/wJ0dTl7vxkPr+pVqn0nJH4VKg5c/LMejHHWCz FO/zSGr63Nuc/28+kyynBk4ThTeGxzumOtcbukNvd/ tZ/jK6kswTK7n75vuIA/Hzp/JZ+p/UHVO89+TyewPmear9ib43e8aEUXGbtLsbAvkLr/O+H7qjY2igGu gMxQ004wW7/EeyuehS6P+auO+FX3+av+jcXR2yb+oDfPq408xX1P1c0d/ZT+uWFSIcDebmyj1y8jC61/ 9F6jUorxldRSe/w8UM5A+Sf+3IWvVn/1gFp4fgiox6 7OeaSezvzbEb/a3ar554Pdwyb94eZrLB727VtyEl8N/pF+skfQ9ZFBQa2u8I3DJ02s51K4E78NfSx3wr +w3Plnd8+MUY+kfDT2Og/6BX2fzyBXk2pgRw7/7Pmc5+/CV+ppfS45KmPDoOb75yP64rwQnz2aXWrJ/R 75vulh71bzR+j6v46Mw//afF/1mclBnwv6p8dxkmDF Fkeps+s+j/p2cYBWbGTEqvb1WlbDPk/9KG5coQZRgn/1R46katV5o6eUV6u342gk/y93RgPL3R9TZvPx /AXuOc63Zy0J3vI+ocuXt1e81zqvBkba+Lji5c8Rq6XtR1ZE/do9bI1TMMbp21U7BodTgua5j6six3fB FjTpQApp/jvbMOYrtehLOArblrGohdL6DIT7GMubhH MOpol2/hM4qh59JO9ex7F12lFKchYlkRz+TquoCls0Ne1N88i90hVfgx4jzWbkM7FRFQLR62AvCrTl6Z vGHjwDVde0kITB/HRQpix+9qeKbxl32LYtgieZHj38NGH40tMAVhP1M632WTToty3hLCV/wG3g17Ws2k bojXrYux7g1/xnEGQTE9Lm3cs4LCqLsCo7quoO1sCQ a8C04fdhsqJ/xNJBkaTrPo+/9ebZVkyAzp3RbwhLO4lASbe0+vRFr8XuHiIjl+d3e6eMHBBu64EA5NjN coM3TAyIGiJ53cTOeLQwXWFIEFpOh6EBFiiQ1MZZW1Khy1ZM/UacfKCp1KTMCD3MizQ5Trc46SDlUgzD B/WZO9qK9LoOJxEzcUe+gQB14BZcx6/BbMGDyG7glO Zmg9+YogA89DwHMBtW+F2MN3wG2icEShSMNohsXE/M3Iz2nfo6ibcGyhB3NJnCJTN/xU89ET0twfJS5d Qnl4fmYfDopSmfKi8JTQhTclXavR2g2kUKtpsEyX4qFw9+wow0RlU4Xd85nsDPpeKNOMRYQmieEio/VÍCTOR [file] AwMDAgbiAKMDAwMDAwMDQwOSAwMDAwMCBuIAowMDAw JYJmGRYpGVZlTKYeIK1iMhYzGDRaCPS9RWIwFHSdPDJyytWZZAUwYNOjZNd1RINyCYYtUZKrWHwoFMNr FEMyZAP0WDNzSBDfSC9qOjMhOHXiDEB8MfWeBVRmSNKxfsFNWWJfFQYaSDV9QwCvJUKtDQYrTSfxNLWd OVIoMDwoZLVxCPVgXE1pXyGhMZCmYKXhQAlaMWFfAY FsojGQPPNzEXOtVYMdOrJpYDOuFAYwKNguPAUuYNkdJYU8UCTcTSZbLD2iLnYpRECnQRG9APseYGLgZW KvrwBNDFLhDQDjZGkeYKJiKYKfVVHeXSkaEVEdWBJpJQY5VZNzCTLyYQ5rSiWaPDUzZIHjCSDqOcG6Ql VfTbIOpTZpbUwxdci4YZcfU0v3JZFcECmcSV1whsYv HLRaRzfwRz3fqZL2EDVjFuzDTl7Ke8FgvxD1itAcCnv1FJGcWbLlWL8A ID Date Data Source [id number] 05/31/2019 07:54:38 PM [facility] Name Value Range Interpretation Code Description Data Amarilis rce(s) Supporting Document(s) Sodium [Moles/volume] in Blood 135 mmol/L 136-[address] [facility] Potassium [Moles/volume] in Blood 3.9 mmol/L 3.4-5.1 [facility] Chloride [Moles/volume] in Blood 99 mmol/L 98-107 [facility] Carbon dioxide, total [Moles/volume] in Blood 28 mmol/L 22-29 [facility] Calcium.ionized [Moles/volume] in Blood 1.18 mmol/L 1.13-1.32 [facility] Glucose [Mass/volume] in Blood 84 mg/dL 70-140 [facility] Urea nitrogen [Mass/volume] in Blood 11 mg/dL 6-20 [facility] Creatinine [Mass/volume] in Blood 0.5 mg/dL 0.70-1.20 [facility] Hematocrit [Volume Fraction] of Blood 34 % 41-[address] [facility] Hemoglobin [Mass/volume] in Blood by calculation 11.6 g/dL 13.5-18.0 [facility] ID Date Data Source [id number] 05/31/2019 07:54:38 PM [facility] Name Value Range Interpretation Code Description Data Amarilis rce(s) Supporting Document(s) pH of Venous blood 7.38 7.36-7.41 [facility] Carbon dioxide [Partial pressure] in Venous blood 46 mmHg 40-[address] [facility] Oxygen [Partial pressure] in Venous blood [address] [facility] Base excess standard in Venous blood by calculation 2 mmol/L [facility] Oxygen saturation Calculated from oxygen partial pressure in Venous blood 54 % 60-[address] [facility] Lactate [Moles/volume] in Venous blood 0.8 mmol/L 0.5-2.2 [facility] Bicarbonate [Moles/volume] in Venous blood 29 mmol/L [facility] ID Date Data Source [id number] 06/05/2019 10:35:48 AM [facility] Cmnt XXX-Imp : Microorganism XXX Cult : No growth (qualifier value) Name Value Range Interpretation Code Description Data Amarilis rce(s) Supporting Document(s) ID Date Data Source [id number] 06/05/2019 10:35:48 AM [facility] Cmnt XXX-Imp : Microorganism XXX Cult : No growth (qualifier value) Name Value Range Interpretation Code Description Data Amarilis rce(s) Supporting Document(s) ID Date Data Source [id number] 05/31/2019 07:19:33 PM [facility] Name Value Range Interpretation Code Description Data Amarilis rce(s) Supporting Document(s) Leukocytes [#/volume] in Blood by Automated count 13.6 10*3/uL 4-[address] [facility] Erythrocytes [#/volume] in Blood by Automated count 3.46 10*6/uL 4.6- 6.[address] [facility] Hemoglobin [Mass/volume] in Blood 10.2 g/dL 13.5-[address] [facility] Hematocrit [Volume Fraction] of Blood by Automated count 31.1 % 4 1-[address] [facility] Erythrocyte mean corpuscular volume [Entitic volume] by Auto mated count 89.9 fL 80-96 [facility] Erythrocyte mean corpuscular hemoglobin [Entitic mass] by Automated count 29.5 pg 27-33 [facility] Erythrocyte mean corpuscular hemoglobin concentration [Mass/volume] by Automated count 32.8 g/[facility] width [Ratio] by Automated count 14.6 % 11.5-14.5 [facility] Platelets [#/volume] in Blood by Automated count 962 10*3/uL 150-[address] [facility] Differential cell count method - Blood [facility] Neutrophils/100 leukocytes in Blood by Automated count 69 % [facility] Lymphocytes/100 leukocytes in Blood by Automated count 17 % [facility] Monocytes/100 leukocytes in Blood by Automated count 13 % [facility] Eosinophils/100 leukocytes in Blood by Automated count 0 % [facility] Basophils/100 leukocytes in Blood by Automated count 1 % [facility] Neutrophils [#/volume] in Blood by Automated count 9.35 10*3/uL 1.8-[address] [facility] Lymphocytes [#/volume] in Blood by Automated count 2.31 10*3/uL 1.2-[address] [facility] Monocytes [#/volume] in Blood by Automated count 1.82 10*3/uL 0-0.[address] [facility] Eosinophils [#/volume] in Blood by Automated count 0.04 10*3/uL 0-0.5 [facility] Basophils [#/volume] in Blood by Automated count 0.11 10*3/uL 0-0.2 [facility] Nucleated erythrocytes/100 leukocytes [Ratio] in Blood by Automated count 0 /100{WBCs} 0-0 [facility] ID Date Data Source [id number] 05/31/2019 07:39:39 PM [facility] Name Value Range Interpretation Code Description Data Amarilis rce(s) Supporting Document(s) Prothrombin time (PT) 13.9 s 12.5-14.9 [facility] INR in Platelet poor plasma by Coagulation assay 1.03 [facility] Routine intensity oral anticoagulation I NR is typically 2.0-3.0. Target INR must be clinically individualized. ID Date Data Source [id number] 05/31/2019 07:39:39 PM [facility] Value Range Interpretation Code Description Data Amarilis rce(s) Supporting Document(s) aPTT in Platelet poor plasma by Coagulation assay 33.4 s 24.0-34. 0 [facility] ID Date Data Source [id number] 05/31/2019 07:47:27 PM [facility] Value Range Interpretation Code Description Data Amarilis rce(s) Supporting Document(s) Albumin [Mass/volume] in Serum or Plasma by Bromocresol green (BCG) dye binding method 3.0 g/dL 3.5[facility]5.[address] Bil[facility].total [Mass/volume] in Serum or Plasma 0.2 mg/dL <1.2 [facility] Bilirubin.direct [Mass/volume] in Serum or Plasma <0.3 [facility] Alkaline phosphatase [Enzymatic activity/volume] in Serum or Plasma 77 U/L 40-129 [facility] Aspartate aminotransferase [Enzymatic activity/volume] in Se rum or Plasma 9 U/L <40 [facility] Alanine aminotransferase [Enzymatic activity/volume] in Seru m or Plasma 10 U/L <41 [facility] Protein [Mass/volume] in Serum or Plasma 6.1 g/dL 6.4-8.[address] [facility] ID Date Data Source [id number] 05/31/2019 07:47:27 PM [facility] Name Value Range Interpretation Code Description Data Amarliis rce(s) Supporting Document(s) Bicarbonate [Moles/volume] in Serum 26 mmol/L 22-29 [facility] Chloride [Moles/volume] in Serum or Plasma 98 mmol/L 98-107 [facility] Creatinine [Mass/volume] in Serum or Plasma 0.59 mg/dL 0.70-1.[address] [facility] Glucose [Mass/volume] in Serum or Plasma 88 mg/dL 70-140 [facility] Potassium [Moles/volume] in Serum or Plasma 4.0 mmol/L 3.4-5.1 [facility] Sodium [Moles/volume] in Serum or Plasma 137 mmol/L 136-145 [facility] Urea nitrogen [Mass/volume] in Serum or Plasma 10 mg/dL 6-20 [facility] Anion gap 3 in Serum or Plasma 13 mmol/L 8-15 [facility] Osmolality of Serum or Plasma by calculation 282 mosm/kg 275-300 [facility] Creatinine/Urea nitrogen [Mass Ratio] in Serum or Plasma 17 [facility] Calcium [Mass/volume] in Serum or Plasma 8.6 mg/dL 8.6-10.0 [facility] Glomerular filtration rate/1.73 sq M pre dicted among non-blacks [Volume Rate/Area] in Serum or Plasma by Creatinine-based formula (MDRD) >[address] [facility] Glomerular filtration rate/1.73 sq M pre dicted among blacks [Volume Rate/Area] in Serum or Plasma by Creatinine-based formula (MDRD) >60 [facility] ID Date Data Source [id number] 05/31/2019 07:43:23 PM [facility] Name Value Range Interpretation Code Description Data Amarilis rce(s) Supporting Document(s) ABO and Rh group [Type] in Blood [facility] Blood group antibody screen [Presence] in Serum or Plasma [facility] Blood bank comment [facility] Procedure Social History Code Duration Value Status Description Data Source(s ) Smoking 06/07/2020 02:13:00 PM EST Daily Smoker completed Daily S moker [facility] Alcohol intake 06/01/2019 12:00:00 AM EST Lifetime non-drinker (finding) completed Lifetime non-drinker (finding) [facility] ital Cigarette pack-years 06/01/2019 12:00:00 AM EST [facility] Cigarettes smoked current (pack per day) - Reported 06/01/19 12:00:00 AM EST [facility] Smoking 06/01/2019 12:00:00 AM EST Heavy tobacco smoker comple bryn Heavy tobacco smoker [facility] Vital Signs ID Date Data Source UNK Name Value Range Interpretation Code Description Data Source(s) Deprecated Oxygen saturation in Capillary blood by Oximetry 98 % Normal (applies to non-numeric results) 98 % [facility] Body temperature 37.6 jana Normal (applies to non-numeric results) 37.6 jana [facility] Respiratory rate 20 min Normal (applies to non-numeric results) 20 min [facility] Heart rate 95 min Normal (applies to non-numeric resul ts) 95 min [facility] Diastolic blood pressure 87 mm[Hg] Normal (applies to non-numeric results) 87 mm[Hg] [facility] Systolic blood pressure 128 mm[Hg] Normal (applies t o non-numeric results) 128 mm[Hg] [facility] Body height 174.3456 cm Normal (applies to non-numeric res ults) 174.3456 cm [facility] Body weight Measured 60.2 kg Normal (applies to non-num ayden results) 60.2 kg [facility] Body mass index (BMI) [Ratio] 19.60 kg/m2 No rmal (applies to non-numeric results) 19.60 kg/m2 [facility] Body mass index (BMI) [Ratio] 20.7 kg/m2 [...] [Ratio] 20.1 kg/m2 20.1 k g/m2 REBEKAH ([facility]) Body height 69 [in_i] 69 [in_i] REBEKAH ([facility]) Diastolic blood pressure 73 mm[Hg] 73 mm[Hg] REBEKAH ([facility]) Body weight 2182.4 [oz_av] 2182.4 [oz_av] ATHEN A ([facility]) Systolic blood pressure 109 mm[Hg] 109 mm[Hg] A [facility] ([facility]) Body weight 2192 [oz_av] 2192 [oz_av] REBEKAH ([facility]) Systolic blood pressure 107 mm[Hg] 107 mm[Hg] A [facility] ([facility]) Body mass index (BMI) [Ratio] 20.2 kg/m2 20.2 k g/m2 REBEKAH ([facility]) Body height 69 [in_i] 69 [in_i] REBEKAH ([facility]) Diastolic blood pressure 60 mm[Hg] 60 mm[Hg] REBEKAH ([facility]) Body weight 2192 [oz_av] 2192 [oz_av] REBEKAH ([facility]) Systolic blood pressure 107 mm[Hg] 107 mm[Hg] A [facility] ([facility]) Body mass index (BMI) [Ratio] 20.2 kg/m2 20.2 k g/m2 REBEKAH ([facility]) Body height 69 [in_i] 69 [in_i] REBEKAH ([facility]) Diastolic blood pressure 60 mm[Hg] 60 mm[Hg] REBEKAH ([facility]) Body surface area Derived from formula 1.76 m2 1.76 m2 [facility] Body weight 62.313 kg 62.313 kg [facility] ([facility]) [place] body weight 160 [lb_av] 160 [lb_av] MEDEN T ([facility]) Body mass index (BMI) [Ratio] 20.3 kg/m2 20.3 k g/m2 [facility] Body weight 137.38 [lb_av] 137.38 [lb_av] MEDEN T ([facility]) Body height 69 [in_i] 69 [in_i] [facility] ([facility]) 5'9" Diastolic blood pressure 69 mm[Hg] 69 mm[Hg] [facility] ([facility]) Systolic blood pressure 106 mm[Hg] 106 mm[Hg] [facility] Body weight 2144 [oz_av] 2144 [oz_av] REBEKAH ([facility]) Body mass index (BMI) [Ratio] 19.8 kg/m2 19.8 k g/m2 REBEKAH ([facility]) Body height 69 [in_i] 69 [in_i] [place] ([facility]) Body weight 2144 [oz_av] 2144 [oz_av] REBEKAH ([facility]) Body mass index (BMI) [Ratio] 19.8 kg/m2 19.8 k g/m2 REBEKAH ([facility]) Body height 69 [in_i] 69 [in_i] REBEKAH ([facility]) Body weight 2144 [oz_av] 2144 [oz_av] REBEKAH ([facility]) Body mass index (BMI) [Ratio] 19.8 kg/m2 19.8 k g/m2 REBEKAH ([facility]) Body height 69 [in_i] 69 [in_i] REBEKAH ([facility]) Body weight 2144 [oz_av] 2144 [oz_av] REBEKAH ([facility]) Body weight 2144 [oz_av] 2144 [oz_av] REBEKAH ([facility]) Systolic blood pressure 130 mm[Hg] 130 mm[Hg] A [facility] ([facility]) Body mass index (BMI) [Ratio] 19.8 kg/m2 19.8 k g/m2 REBEKAH ([facility]) Body height 69 [in_i] 69 [in_i] REBEKAH ([facility]) Diastolic blood pressure 101 mm[Hg] 101 mm[Hg] REBEKAH ([facility]) Body weight 2144 [oz_av] 2144 [oz_av] REBEKAH ([facility]) Systolic blood pressure 130 mm[Hg] 130 mm[Hg] A [facility] ([facility]) Body mass index (BMI) [Ratio] 19.8 kg/m2 19.8 k g/m2 REBEKAH ([facility]) Body height 69 [in_i] 69 [in_i] REBEKAH ([facility]) Diastolic blood pressure 101 mm[Hg] 101 mm[Hg] REBEKAH ([facility]) Systolic blood pressure 130 mm[Hg] 130 mm[Hg] A [facility] ([facility]) Body mass index (BMI) [Ratio] 19.8 kg/m2 19.8 k g/m2 REBEKAH ([facility]) Body height 69 [in_i] 69 [in_i] REBEKAH ([facility]) Diastolic blood pressure 101 mm[Hg] 101 mm[Hg] REBEKAH ([facility]) Body weight 2144 [oz_av] 2144 [oz_av] REBEKAH ([facility]) Systolic blood pressure 130 mm[Hg] 130 mm[Hg] A [facility] ([facility]) Body mass index (BMI) [Ratio] 19.8 kg/m2 19.8 k g/m2 REBEKAH ([facility]) Body height 69 [in_i] 69 [in_i] REBEKAH ([facility]) Diastolic blood pressure 101 mm[Hg] 101 mm[Hg] REBEKAH ([facility]) Body surface area Derived from formula 1.72 m2 1.72 m2 MEDENT ([facility]) Body weight 59.138 kg 59.138 kg [facility] ([facility]) [place] body weight 160 [lb_av] 160 [lb_av] MEDEN T ([facility]) Body mass index (BMI) [Ratio] 19.3 kg/m2 19.3 k g/m2 [facility] ([facility]) Body weight 130.38 [lb_av] 130.38 [lb_av] [facility] Body height 69 [in_i] 69 [in_i] [facility] ([facility], ) 5'9" Diastolic blood pressure 81 mm[Hg] 81 mm[Hg] [facility] ([facility]) Systolic blood pressure 126 mm[Hg] 126 mm[Hg] M JUSTIN ([facility], ) Body weight 2048 [oz_av] 2048 [oz_av] REBEKAH ([facility]) Systolic blood pressure 116 mm[Hg] 116 mm[Hg] A [facility] ([facility]) Body height 69 [in_i] 69 [in_i] REBEKAH ([facility]) Diastolic blood pressure 80 mm[Hg] 80 mm[Hg] REBEKAH ([facility]) Body weight 8 [oz_av] 2048 [oz_av] REBEKAH ([facility]) Systolic blood pressure 116 mm[Hg] 116 mm[Hg] A [facility] ([facility]) Body height 69 [in_i] 69 [in_i] REBEKAH ([facility]) Diastolic blood pressure 80 mm[Hg] 80 mm[Hg] REBEKAH ([facility]) Body weight 2048 [oz_av] 2048 [oz_av] REBEKAH ([facility]) Systolic blood pressure 116 mm[Hg] 116 mm[Hg] A [facility] ([facility]) Body height 69 [in_i] 69 [in_i] REBEKAH ([facility]) Diastolic blood pressure 80 mm[Hg] 80 mm[Hg] REBEKAH ([facility]) Body weight 2048 [oz_av] 2048 [oz_av] REBEKAH ([facility]) Systolic blood pressure 116 mm[Hg] 116 mm[Hg] A [facility] ([facility]) Body height 69 [in_i] 69 [in_i] REBEKAH ([facility]) Diastolic blood pressure 80 mm[Hg] 80 mm[Hg] REBE[facility] ([facility]) Body surface area Derived from formula 1.73 m2 1.73 m2 [facility] ([facility], ) Body weight 59.478 kg 59.478 kg [facility] ([facility]) [place] body weight 160 [lb_av] 160 [lb_av] [facility] Body mass index (BMI) [Ratio] 19.4 kg/m2 19.4 k g/m2 [facility] ([facility]) Body weight 131.12 [lb_av] 131.12 [lb_av] [facility], ) Body height 69 [in_i] 69 [in_i] [facility] ([facility]) 5'9" Diastolic blood pressure 80 mm[Hg] 80 mm[Hg] [facility] ([facility]) Systolic blood pressure 118 mm[Hg] 118 mm[Hg] [facility] Body weight 2144 [oz_av] 2144 [oz_av] REBEKAH ([facility]) Systolic blood pressure 126 mm[Hg] 126 mm[Hg] A [facility] ([facility]) Body height 69 [in_i] 69 [in_i] REBEKAH ([facility]) Diastolic blood pressure 88 mm[Hg] 88 mm[Hg] REBEKAH ([facility]) Body weight 2144 [oz_av] 2144 [oz_av] REBEKAH ([facility]) Systolic blood pressure 126 mm[Hg] 126 mm[Hg] A [facility] ([facility]) Body height 69 [in_i] 69 [in_i] REBEKAH ([facility]) Diastolic blood pressure 88 mm[Hg] 88 mm[Hg] REBEKAH ([facility]) Body weight 2144 [oz_av] 2144 [oz_av] REBEKAH ([facility]) Body weight 2144 [oz_av] 2144 [oz_av] REBEKAH ([facility]) Systolic blood pressure 126 mm[Hg] 126 mm[Hg] [facility] Body height 69 [in_i] 69 [in_i] REBEKAH ([facility]) Diastolic blood pressure 88 mm[Hg] 88 mm[Hg] REBE[facility] ([facility]) Systolic blood pressure 126 mm[Hg] 126 mm[Hg] A THENA ([facility]) Body height 69 [in_i] 69 [in_i] [facility] ([facility]) Diastolic blood pressure 88 mm[Hg] 88 mm[Hg] [facility] ([facility]) Body weight 2144 [oz_av] 2144 [oz_av] [facility]BE[facility] ([facility]) Systolic blood pressure 105 mm[Hg] 105 mm[Hg] [facility] Body height 69 [in_i] 69 [in_i] REBE[facility] ([facility]) Diastolic blood pressure 73 mm[Hg] 73 mm[Hg] RE[facility] ([facility]) Body weight 2144 [oz_av] 2144 [oz_av] REBEKAH ([facility]) Systolic blood pressure 105 mm[Hg] 105 mm[Hg] [facility] Body height 69 [in_i] 69 [in_i] [facility] ([facility]) Diastolic blood pressure 73 mm[Hg] 73 mm[Hg] [facility] ([facility]) Body weight 2144 [oz_av] 2144 [oz_av] REBEK[facility] ([facility]) Systolic blood pressure 105 mm[Hg] 105 mm[Hg] A THENA ([facility]) Body height 69 [in_i] 69 [in_i] [facility] ([facility]) Diastolic blood pressure 73 mm[Hg] 73 mm[Hg] [facility] ([facility]) Body weight 2144 [oz_av] 2144 [oz_av] [facility]BE[facility] ([facility]) Systolic blood pressure 105 mm[Hg] 105 mm[Hg] [facility] Body height 69 [in_i] 69 [in_i] [facility] ([facility]) Diastolic blood pressure 73 mm[Hg] 73 mm[Hg] [facility] ([facility]) Systolic blood pressure 119 mm[Hg] 119 mm[Hg] A THENA ([facility]) Body height 69 [in_i] 69 [in_i] [facility] ([facility]) Diastolic blood pressure 84 mm[Hg] 84 mm[Hg] RE[facility] ([facility]) Systolic blood pressure 119 mm[Hg] 119 mm[Hg] A THENA ([facility]) Body height 69 [in_i] 69 [in_i] [facility] ([facility]) Diastolic blood pressure 84 mm[Hg] 84 mm[Hg] RE[facility] ([facility]) Systolic blood pressure 119 mm[Hg] 119 mm[Hg] [facility] Body height 69 [in_i] 69 [in_i] RE[facility] ([facility]) Diastolic blood pressure 84 mm[Hg] 84 mm[Hg] RE[facility] ([facility]) Systolic blood pressure 119 mm[Hg] 119 mm[Hg] A THENA ([facility]) Body height 69 [in_i] 69 [in_i] RE[facility] ([facility]) Diastolic blood pressure 84 mm[Hg] 84 mm[Hg] REBEKAH ([facility]) Body weight 2144 [oz_av] 2144 [oz_av] REBEKAH ([facility]) Systolic blood pressure 109 mm[Hg] 109 mm[Hg] [facility] Body height 69 [in_i] 69 [in_i] REBEKAH ([facility]) Diastolic blood pressure 80 mm[Hg] 80 mm[Hg] RE[facility] ([facility]) Body weight 2144 [oz_av] 2144 [oz_av] REBEKAH ([facility]) Systolic blood pressure 109 mm[Hg] 109 mm[Hg] A THENA ([facility]) Body height 69 [in_i] 69 [in_i] [facility] ([facility]) Diastolic blood pressure 80 mm[Hg] 80 mm[Hg] [facility] ([facility]) Body weight 2144 [oz_av] 2144 [oz_av] REBEKAH ([facility]) Systolic blood pressure 109 mm[Hg] 109 mm[Hg] A THENA ([facility]) Body height 69 [in_i] 69 [in_i] [facility] ([facility]) Diastolic blood pressure 80 mm[Hg] 80 mm[Hg] REBE[facility] ([facility]) Body weight 2144 [oz_av] 2144 [oz_av] REBEKAH ([facility]) Systolic blood pressure 109 mm[Hg] 109 mm[Hg] A THENA ([facility]) Body height 69 [in_i] 69 [in_i] [facility] ([facility]) Diastolic blood pressure 80 mm[Hg] 80 mm[Hg] [facility] ([facility]) Body weight 57.380 kg 57.380 kg [facility] Body mass index (BMI) [Ratio] 18.7 kg/m2 18.7 k g/m2 [facility] ([facility], ) Body weight 126.50 [lb_av] 126.50 [lb_av] MEDEN T ([facility], ) Body height 69 [in_i] 69 [in_i] [facility] 5'9" Body temperature 96.9 [degF] 96.9 [degF] [facility] ) Diastolic blood pressure 62 mm[Hg] 62 mm[Hg] MEDENT ([facility], ) Systolic blood pressure 110 mm[Hg] 110 mm[Hg] M JUSTIN ([facility], ) Body weight 1984 [oz_av] 1984 [oz_av] REBEKAH ([facility]) Systolic blood pressure 115 mm[Hg] 115 mm[Hg] A THENA ([facility]) Body height 69 [in_i] 69 [in_i] [facility] ([facility]) Diastolic blood pressure 72 mm[Hg] 72 mm[Hg] RE[facility] ([facility]) Body weight 1983 [oz_av] 1984 [oz_av] REBEKAH ([facility]) Systolic blood pressure 115 mm[Hg] 115 mm[Hg] A THENA ([facility]) Body height 69 [in_i] 69 [in_i] REBE[facility] ([facility]) Diastolic blood pressure 72 mm[Hg] 72 mm[Hg] REBEKAH ([facility]) Body weight 1983 [oz_av] 1983 [oz_av] REBEKAH ([facility]) Systolic blood pressure 115 mm[Hg] 115 mm[Hg] A THENA ([facility]) Body height 69 [in_i] 69 [in_i] REBEKAH ([facility]) Diastolic blood pressure 72 mm[Hg] 72 mm[Hg] REBEKAH ([facility]) Body weight 1983 [oz_av] 1983 [oz_av] REBEKAH ([facility]) Systolic blood pressure 115 mm[Hg] 115 mm[Hg] [facility] Body height 69 [in_i] 69 [in_i] REBEKAH ([facility]) Diastolic blood pressure 72 mm[Hg] 72 mm[Hg] REBEKAH ([facility]) Body weight 1868.8 [oz_av] 1868.8 [oz_av] ATHEN A ([facility]) Systolic blood pressure 109 mm[Hg] 109 mm[Hg] [facility] Body height 69 [in_i] 69 [in_i] REBEKAH ([facility]) Diastolic blood pressure 76 mm[Hg] 76 mm[Hg] REBEKAH ([facility]) Body weight 1868.8 [oz_av] 1868.8 [oz_av] ATHEN A ([facility]) Systolic blood pressure 109 mm[Hg] 109 mm[Hg] A THENA ([facility]) Body height 69 [in_i] 69 [in_i] REBEKAH ([facility]) Diastolic blood pressure 76 mm[Hg] 76 mm[Hg] REBEKAH ([facility]) Body weight 1868.8 [oz_av] 1868.8 [oz_av] ATHEN A ([facility]) Systolic blood pressure 109 mm[Hg] 109 mm[Hg] [facility] Body height 69 [in_i] 69 [in_i] REBEKAH ([facility]) Diastolic blood pressure 76 mm[Hg] 76 mm[Hg] REBEKAH ([facility]) Body weight 1868.8 [oz_av] 1868.8 [oz_av] ATHEN A ([facility]) Systolic blood pressure 109 mm[Hg] 109 mm[Hg] Hermila ANGELES ([facility]) Body height 69 [in_i] 69 [in_i] REBEKAH ([facility]) Diastolic blood pressure 76 mm[Hg] 76 mm[Hg] REBEKAH ([facility]) Body weight 52.277 kg 52.277 kg [facility] ([facility], ) Body mass index (BMI) [Ratio] 17.0 kg/m2 17.0 k g/m2 [facility] ([facility], ) Body weight 115.25 [lb_av] 115.25 [lb_av] NAUNRHIANNON T ([facility], ) Body height 69 [in_i] 69 [in_i] [facility] ([facility], ) 5'9" Diastolic blood pressure 62 mm[Hg] 62 mm[Hg] [facility] ([facility]) Systolic blood pressure 100 mm[Hg] 100 mm[Hg] M EDGAY ([facility]) ID Date Data Source [id number] 06/05/2019 10:35:59 AM [facility] Name Value Range Interpretation Code Description Data Source(s) WEIGHT RECORDED 289.91 lb 289.91 lb [facility] Body height Measured 72 in 72 in [place] [facility] Patient Treatment Plan of Care Planned Activity Planned Date Details Description Data Source (s) 24 HR Nicotine 0.583 MG/HR Transdermal Patch 06/02/2019 09:00:00 AM [facility] sodium chloride (preservative free) 0.9 % flush 3 mL 020 01:00:00 AM [facility] Tetrahydrocannabinol 5 MG Oral Capsule REBEKAH ([facility]) Tetrahydrocannabinol 5 MG Oral Capsule REBEKAH ([facility]) Tetrahydrocannabinol 5 MG Oral Capsule REBEKAH ([facility]) Tetrahydrocannabinol 5 MG Oral Capsule REBEKAH ([facility])
--- OUTSIDE RECORDS SUMMARY | 2020-06-21 16:32 | CCD ---
Author Author [facility] Organization [facility] Address Unknown Phone Unavailable Care Team Providers Care Cocktail Lounge Manager Name Role Phone Sissy Crain JR, MD [...] Unavailable Paras JR, J Laron Unavailable Unavailable Praas JR J Laron Unavailable Unavailable Paras JR [...] J Laron Unavailable Unavailable Paras JR, J Alron Unavailable Unavailable Paras JR J Laron Unavailable [...] Unavailable Unavailable Mathieu Henderson MD Unavailable Unavailable Mtahieu Henderson MD Unavailable Unavailable Mathieu Henderson MD [...] Unavailable Mathieu Henderson MD Unavailable Unavailable Mathieu Hnederson MD Unavailable Unavailable Mathieu Henderson MD Unavailable [...] Unavailable Mathieu Henderson MD Unavailable Unavailable Mathieu Hnederson MD Unavailable Unavailable Mathieu Henderson MD Unavailable [...] Unavailable Mathieu Henderson MD Unavailable Unavailable Mathieu Hnederson MD Unavailable Unavailable Mathieu Henderson MD Unavailable [...] Unavailable Unavailable Mathieu Henderson MD Unavailable Unavailable Mathiue Henderson MD Unavailable Unavailable Mathieu Henderson MD [...] Unavailable BEM, GRIS MD Unavailable Unavailable BEM, GRSI MD Unavailable Unavailable BEM, GRIS MD Unavailable [...] Unavailable Idalia Henderson MD Unavailable Unavailable Idalia Henedrson MD Unavailable Unavailable Idalia Henderson MD Unavailable [...] Unavailable HendersonIdalia cleaning MD Unavailable Unavailable HendersonIdalia clenaing MD Unavailable Unavailable HendersonIdalia cleaning MD Unavailable [...] is protected by Article 27-F of the [facility] Public Health law. If you continue you may have access to information: Regarding HIV / AIDS; Provided by facilities licensed or operated by the [facility] Office of Mental Health; or Provided by the [facility] Office for People With Developmental Disabilities. If such information is present, then the following [facility] mandated warning applies: This information has [...] law may result in a fine or fdc sentence or both. A general authorization for the release of medical or other information is NOT sufficient authorization for further disc losure. Allergies and Adverse Reactions Type Description Substance Reaction Status Data Source(s ) Drug Class NO KNOWN ALLERGIES NO KNOWN ALLERGIES [facility] Encounters Encounter Providers Location Date Indications Data Source(s ) Inpatient Attender: Sherry Henderson MD 06/11/2020 07:52:11 AM EST Lab [facility] Inpatient Attender: Sherry Henderson MDAdmitter: Sherry butt MD 06/11/2020 05:13:00 AM EST - 06/16/2020 12:02:00 PM EST ILEOSTOMY STATUS, COLOSTOMY STATUS & HX COLON CARCINOMA Z85. [facility] ILEOSTOMY STATUS, COLOSTOMY STATUS & HX COLON CARCINOMA Z85. Patient discharged. ( in Healthcare facility) Attender: Sherry Henderson MDAdmitter: Sherry Henderson MDConsultant: Daniel Henderson MD 06/11/2020 05:13:00 AM ES T [facility] Outpatient Attender: Sherry Hendesron MD 06/07/2020 02:21:03 PM EST Lab [facility] Outpatient Attender: Sherry Henderson MD 06/07/2020 01 :49:00 PM EST URGENT OPEN TAKEDOWN OF ILEOSTOMY, TAKEDOWN COLOSTOMY AND LO [facility] URGENT OPEN TAKEDOWN OF ILEOSTOMY, TAKED OWN COLOSTOMY AND LO Outpatient Attender: Sherry Henderson MD [place] 05/31/2020 01:45:00 PM EST [facility] ([facility]) Daniel Henderson MD: [address] [place] [address], Ph. Attender: Daniel Henderson MD [facility] Medical 05/25/2020 12:00:00 AM EST [facility] ([facility]) Daniel Henderson MD: [address] [place] [address], Ph. Attender: Daniel Henderson MD [facility] Medical 04/27/2020 12:00:00 AM EST [facility] ([facility]) Daniel Henderson MD: [address] [place] [address], Ph. Attender: Daniel Henderson MD [facility] Medical 04/27/2020 12:00:00 AM EST [facility] ([facility]) Daniel Henderson MD: [address] [place] [address], Ph. Attender: Daniel Henderson MD [facility] Medical 03/29/2020 12:00:00 AM EST [facility] ([facility]) Daniel Henderson MD: [address] [place] [address], Ph. Attender: Daniel Henderson MD [facility] Medical 03/29/2020 12:00:00 AM EST [facility] ([facility]) Daniel Henderson MD: [address] [place] [address], Ph. Attender: Daniel Henderson MD [facility] Medical 03/29/2020 12:00:00 AM EST [facility] ([facility]) Daniel Henderson MD: [address] [place] [address], Ph. Attender: Daniel Henderson MD [facility] Medical 03/01/2020 12:00:00 AM EDT [facility] ([facility]) Daniel Henderson MD: [address] [place] [address], Ph. Attender: Daniel Henderson MD [facility] Medical 03/01/2020 12:00:00 AM EDT [facility] ([facility]) Daniel Henderson MD: [address] [place] [address], Ph. Attender: Daniel Henderson MD [facility] Medical 03/01/2020 12:00:00 AM EDT [facility] ([facility]) Daniel Henderson MD: [address] [place] [address], Ph. Attender: Daniel Henderson MD [facility] Medical 03/01/2020 12:00:00 AM EDT [facility] ([facility]) Outpatient Attender: Daniel Henderson MD FP 02/24/2020 01:27:[address] [facility] Outpatient Attender: Laron Colindres/Cam/Herbert/Horacio dl 02/16/2020 08:40:00 AM EDT [facility] ([facility] Outpatient Attender: Daniel Henderson MD FP 02/03/2020 10:32:[address] [facility] Outpatient Attender: Daniel Henderson MD FP 02/02/2020 10:53:[address] [facility] Outpatient Attender: Daniel Henderson MD FP 01/10/2020 11:45:[address] [facility] Outpatient Attender: Daniel Henderson [...] Henderson MD FP 12/16/2019 09:35:[address] [facility] Outpatient Attender: Laron Colindres/Cam/Herbert/Horacio dl 11/26/2019 08:50:00 AM EDT [facility] ([facility], ) Outpatient Attender: Daniel Henderson MD FP 11/24/2019 11:27:[address] [facility] Outpatient Attender: Daniel Henderson MD FP [...] Henderson MD FP 11/19/2019 11:49:[address] [facility] Outpatient Attender: Daniel Henderson MD FP 11/17/2019 01:34:00 PM EDT [facility] Outpatient Attender: Daniel Henderson MD FP 11/10/2019 11:59:00 AM EDT [facility] Outpatient Attender: Daniel Henderson MD FP 11/05/2019 11:10:01 AM EDT [facility] Outpatient Attender: Daniel Henderson MD FP 10/28/2019 03:30:[address] [facility] Outpatient Attender: Daniel Henderson MD FP 10/24/2019 12:02:[address] [facility] Outpatient Attender: Daniel Henderson MD FP 10/23/2019 05:00:[address] [facility] Outpatient Attender: Daniel Henderson MD FP 10/23/2019 11:49:[address] [facility] Outpatient Attender: Daniel Henderson MD FP 10/22/2019 12:02:[address] [facility] Outpatient Attender: Daniel Henderson MD FP 10/21/2019 02:40:[address] [facility] Outpatient Attender: Daniel Henderson MD FP 10/21/2019 02:39:[address] [facility] Outpatient Attender: Daniel Henderson MD FP 10/21/2019 01:40:[address] [facility] Outpatient Attender: Daniel Henderson MD FP 10/21/2019 10:12:00 AM EDT [facility] Outpatient Attender: Saundra Oneill MD FP 10/14/2019 07:58:[address] [facility] Outpatient Attender: Saundra Oneill MD FP 09/23/2019 02:52:[address] [facility] Outpatient Attender: Saundra Oneill MD FP 09/23/2019 02:51:[address] [facility] Outpatient Attender: Saundra Oneill MD FP 09/22/2019 09:43:[address] [facility] Outpatient 09/16/2019 06:22:00 AM EDT [facility] Outpatient Attender: GIO SIMS MD FP 09/08/2019 10:20:[address] [facility] Outpatient Attender: GIO SIMS MD FP 09/04/2019 02:27:[address] [facility] Outpatient Attender: GIO SIMS MD FP 08/27/2019 10:25:[address] [facility] Outpatient 08/15/2019 06:14:00 AM EDT [facility] Outpatient Attender: GIO SIMS MD FP 07/30/2019 01:25:[address] [facility] Outpatient Attender: GIO SIMS MD FP 07/25/2019 03:37:[address] [facility] Outpatient Attender: GIO SIMS MD FP 07/17/2019 03:10:[address] [facility] Outpatient Attender: GIO SIMS MD FP 07/17/2019 03:10:[address] [facility] Outpatient Attender: GIO SIMS MD FP 07/17/2019 03:09:03 P M [facility] Outpatient Attender: GIO SIMS MD FP 07/11/2019 09:42:00 A [facility] Outpatient 07/03/2019 12:31:00 PM [facility] Outpatient Attender: GIO SIMS MD 07/03/2019 10:19:02 A [facility] Outpatient 07/01/2019 09:47:00 AM EST [facility] [address] [address] 06/30/2019 12:00:00 AM EST eCW1 ([facility]) Outpatient 06/26/2019 02:25:00 PM EST [facility] Outpatient 06/25/2019 01:31:00 PM [facility] Outpatient Attender: GIO SIMS MD FP 06/20/2019 10:38:00 A [facility] Outpatient Attender: GIO SIMS MD FP 06/18/2019 10:04:05 A [facility] Outpatient Attender: GIO SIMS MD 06/18/2019 08:44:00 A [facility] Outpatient 06/17/2019 02:34:00 PM [facility] Outpatient Attender: GIO SIMS MD FP 06/16/2019 04:08:00 P [facility] Outpatient Attender: GIO SIMS MD 06/16/2019 09:21:00 A [facility] Outpatient 06/02/2019 12:47:00 PM [facility] Outpatient Attender: GIO SIMS MD FP 06/02/2019 11:00:04 A [facility] Outpatient Attender: GRIS OHBBS MDReferrer: GRIS HOBBS MD 06/01/2019 12:00:00 AM [facility] Inpatient Attender: GRIS Guzman r: CHARLINE MÁRQUEZ MDAdmitter: GRIS HOBBS MDReferrer: PROVIDER SYSTEM IN 05/31/2019 12:00:00 AM [facility] - 06/02/2019 12:00:00 AM [facility] Peritoneal abscess Patient discharged. Outpatient Attender: GIO SIMS MD 05/27/2019 01:59:00 P [facility] Outpatient Attender: GIO SIMS MD 05/27/2019 01:56:00 P [facility] Outpatient Attender: GIO SIMS MD 05/27/2019 01:55:02 P [facility] Outpatient Attender: GIO SIMS MD 05/27/2019 01:55:01 P [facility] Outpatient Attender: GIO SIMS MD 05/27/2019 10:13:00 A [facility] Outpatient Attender: GIO SIMS MD 05/12/2019 01:13:02 P [facility] Outpatient Attender: GIO SIMS MD 05/12/2019 11:47:01 A [facility] Outpatient Attender: GIO SIMS MD 05/09/2019 12:01:00 P [facility] Outpatient Attender: GIO SIMS MD 05/09/2019 11:52:01 A [facility] Outpatient Attender: GIO SIMS MD 05/09/2019 09:38:01 A [facility] Outpatient Attender: GIO SIMS MD 05/09/2019 09:20:01 A [facility] Outpatient Attender: GIO SIMS MD 05/08/2019 01:16:01 P [facility] Outpatient Attender: GIO SIMS MD 05/02/2019 09:46:00 A [facility] Outpatient Attender: GIO SIMS MD 05/02/2019 09:45:02 A [facility] Outpatient Attender: GIO SIMS MD 04/28/2019 02:53:02 P [facility] Medications Medication Brand Name Start Date [...] on Sun06/02/19 at 0900, For 30 days [facility] Medication administered onsite sodium chloride (preservative free) 0.9 % flush 3 mL 06/02/2019 01:00:00 AM EST 3 mL Intravenous active [Ord er 1 Start] Name: Peripheral IV Signed Summary: Routine, CONTINUOUS, Starting [place] 06/01/19 at 2025, Until Sun07/01/19, For 30 [...] 3 mL, Intravenous, PRN, Line Care, Starting [place] 06/01/19 at 2024, For 30 days
Saline Lock. Flush Q8H and after each use to Saline [place].
[Order 3 End] [Order 4 Start] Name: Saline Lock order Signed Summary: Routine, ONCE, [place] 06/01/19 at 2025, For 1 occurrence [Order 4 End] [Order 5 Start] Name: NaCl infusion 0.9 % Signed Summary: at 0.2-10 mL/hr, Intravenous, PRN, For Meds, Starting [place] 06/01/19 at 2024, For 30 days [Order 5 End] [Order 6 Start] Name: dextrose 5 % infusion Signed Summary: at 0.2-10 mL/hr, Intravenous, PRN, For Meds, Starting [place] 06/01/19 at 2024, For 30 days [Order 6 End] [facility] Medication administered onsite gabapentin 100 MG Oral Capsule gabapentin (NEURONTIN) capsule 100 mg gabapentin (NEURONTIN) capsule 100 mg 06/01/2019 05:00:00 PM EST 100 mg Oral active 100 mg, Oral, Three Times D aily Standard, First dose on Sun06/01/19 at 1700, For 30 days [facility] Medication administered onsite Ibuprofen 200 MG Oral Tablet ibuprofen (ADVIL,MOTRIN) tablet 400 mg ibuprofen (ADVIL,MOTRIN) tablet 400 mg 06/01/2019 01:45:00 PM EST 400 mg Oral active 400 mg, Oral, Every 6 hours, First dose on 06/01/19 at 1345, For 30 days
Take with food.
[facility] Medication administered onsite lidocaine (XYLOCAINE) 2 % injection 0634-3186-19 06/01/2019 12:57:00 PM EST completed Code/Trauma Medicati on, Starting 06/01/19 at 1257 [facility] Medication administered onsite fentaNYL (SUBLIMAZE) (PF) injection 6415-1771-56 06/01/2019 12:55:00 PM EST completed Code/Trauma Medicati on, Starting 06/01/19 at 1255 [facility] Medication administered onsite Buprenorphine 8 MG / Naloxone 2 MG Subli ngual Tablet buprenorphine-naloxone (SUBOXONE) 8-2 MG per sublingual tablet 1 tablet buprenorphine-naloxone (SUBOXONE) 8-2 MG per sublingual tablet 1 tablet 06/01/2019 09:00:00 AM EST Sublingual active 1 tablet (8 mg of buprenorphine), Sublingual, Daily Standard, First dose on 06/01/19 at 0900, For 3 days [facility] Medication administered onsite ondansetron (ZOFRAN) injection 4 mg 25506-261-97 06/01/2019 04:11:5 9 AM EST 4 mg Intravenous active 4 mg, In travenous, Every 8 hours PRN, Nausea, Vomiting, Starting 06/01/19 at 0411, For 30 days [facility] Medication administered onsite 1 ML Ketorolac Tromethamine 30 MG/ML Car tridge ketorolac (TORADOL) injection 15 mg ketorolac (TORADOL) injection 15 mg 06/01/2019 01:15:00 AM EST 15 mg Intravenous completed 15 mg, Intrav enous, Once, 06/01/19 at 0115, For 1 dose [facility] Medication administered onsite NaCl infusion 0.9 % 5345-8793-75 06/01/2019 12:30:00 AM EST Intravenous active at 100 mL/hr, Intrav enous, Continuous, Starting 06/01/19 at 0030, For 30 days [facility] Medication administered onsite Ceftriaxone 1000 MG Injection cefTRIAXone (ROCEPHIN) i nfusion 1 g (premix) cefTRIAXone (ROCEPHIN) infusion 1 g (premix) 06/01/2019 12:15:40 AM EST 1 g Intravenous active 1 g, Intraven ous, at 100 mL/hr, Every 24 hours, First dose on 06/01/19 at 0030, For 7 days
Discouraged Uses: Empiric treatment of post-surgical meningitis (ceftazidime preferred)
[facility] Medication administered onsite Metronidazole 5 MG/ML Injectable Solution metroNIDAZOL E (FLAGYL) IVPB 500 mg metroNIDAZOLE (FLAGYL) IVPB 500 mg 06/01/2019 12:15:40 AM EST 50 0 mg Intravenous active 500 mg, Intra venous, Administer over 60 Minutes, Every 8 hours, First dose on 06/01/19 at 0030, For 7 days [facility] Medication administered onsite iohexol (OMNIPAQUE) 300 MG/ML contrast injection 100 mL [id number] 05/31/2019 11:15:00 PM EST 100 mL Given by IV completed 100 mL, Given by IV, 1 TIME IMAGING, 05/31/19 at 2315, For 1 dose [facility] Medication administered onsite Acetaminophen 325 MG Oral Tablet acetaminophen (TYLENO L) tablet 650 mg acetaminophen (TYLENOL) tablet 650 mg 05/31/2019 08:30:00 PM EST 65 0 mg Oral active 650 mg, Oral, E very 6 hours, First dose on 05/31/19 at 2030, For 30 days
Maximum daily dose of acetaminophen is 3,000 mg from all sources in 24 hours.
[facility] Medication administered onsite 1 ML Ketorolac Tromethamine 30 MG/ML Car tridge ketorolac (TORADOL) injection 15 mg ketorolac (TORADOL) injection 15 mg 05/31/2019 08:30:00 PM EST 15 mg Intravenous completed 15 mg, Intrav enous, Once, 05/31/19 at 2030, For 1 dose [facility] Medication administered onsite morphine sulfate (PF) injection 4 mg 0449-7271-61 05/31/2019 08:00: 00 PM EST 4 mg Intravenous completed 4 mg, In travenous, Once, 05/31/19 at 2000, For 1 dose [facility] Medication administered onsite Piperacillin 3000 MG / tazobactam 375 MG Injection piperacillin-tazobactam (ZOSYN) IVPB 3.375 g (premix) piperacillin-tazobactam (ZOSYN) IVPB 3.3 75 g (premix) 05/31/2019 07:00:00 PM EST 3.375 g Intravenous com pleted 3.375 g, Intravenous, Administer over 0.5 Hours, Once, 05/31/19 at 1900, For 1 dose [facility] Medication administered onsite Tetrahydrocannabinol 5 MG Oral Capsule dronabinol 5 mg capsule dronabinol 5 mg capsule completed dronabinol 5 M G Oral Capsule [facility] ([facility]) Tetrahydrocannabinol 5 MG Oral Capsule dronabinol 5 mg capsule dronabinol 5 mg capsule completed dronabinol 5 M G Oral Capsule [facility] ([facility]) Tetrahydrocannabinol 5 MG Oral Capsule dronabinol 5 mg capsule dronabinol 5 mg capsule completed dronabinol 5 M G Oral Capsule [place] ([facility]) Tetrahydrocannabinol 5 MG Oral Capsule dronabinol 5 mg capsule dronabinol 5 mg capsule completed dronabinol 5 M G Oral Capsule [place] ([facility]) Insurance Providers Payer name Policy type / Coverage type Policy ID Covered green party ID Covered green party's relationship to murillo Policy [place] Plan Information [facility] COMMUNITY PLAN [facility] [id number] SP [id number] MEDICAID GME [id number] [facility] [id number] S [id number] HEA [id number] SELF PAY ONLY [id number] SP [id number] SELF PAY ONLY [id number] SP [id number] [facility] COMMUNITY PLAN [facility] [id number] SP [id number] [facility] COMMUNITY PLAN [facility] [id number] SP [id number] Managed Care [facility] Community Plan P [id number] S [id number] Medicaid S [id number] S [id number] Managed Care - [facility] Community Plan P [id number] S [id number] [facility] I [id number] Self [id number] [facility] O [id number] S [id number] Managed Care [facility] Community Plan P [id number] S [id number] [facility] COMMUNITY PLAN [facility] [id number] SP [id number] MEDICAID [id number] SP [id number] Managed Care [facility] Community Plan P [id number] S [id number] ANSI-Medicaid [id number] ANS-Medicaid [id number] ANSI-Medicaid [id number] ANSI-Medicaid [id number] MEDICAID M [id number] S [id number] UNAVAILABLE UNAVAILA BLE SELF PAY UNAVAILABLE SP UNAVAILA BLE SELF PAY ONLY UNAVAILABLE UNAV AILABLE MEDICAID [id number] SP [id number] Problems, Conditions, and Diagnoses Code Display Name Description Problem Type Effective Dates Data Source(s) V70.0 Encounter for general adult medical exam ination with abnormal findings Encounter for general adult medical examination with abnormal findings 10/21/2019 02:38:[address] [facility] [id number] Procedure by method Procedure by Method Problem 0 10/21/2019 12:00:00 AM EDT [place] ([facility] er) [id number] Procedure by method Procedure by Method Problem 0 10/21/2019 12:00:00 AM EDT [place] ([facility]) [id number] Procedure by method Procedure by Method Problem 0 10/21/2019 12:00:00 AM EDT [place] ([facility]) [id number] Procedure by method Procedure by Method Problem 0 10/21/2019 12:00:00 AM EDT [place] ([facility] er) C18.2 Malignant neoplasm of ascending colon Ma lignant neoplasm of ascending colon 07/17/2019 03:08:[address] [facility] Z93.3 Colostomy status H/O: colostomy 07/17/2019 03:0 8:[address] [facility] [id number] Colostomy present Colostomy Present Problem 07/16 12:00:00 AM EDT [place] ([facility]) [id number] Malignant tumor of ascending colon Malignant Rafita or of Ascending Colon Problem 07/17/2019 12:00:00 AM EDT [place] ([facility]) [id number] Colostomy present Colostomy Present Problem 07/16 12:00:00 AM EDT [place] ([facility]) [id number] Malignant tumor of ascending colon Malignant Rafita or of Ascending Colon Problem 07/17/2019 12:00:00 AM EDT [place] ([facility]) [id number] Colostomy present Colostomy Present Problem 07/16 12:00:00 AM EDT [place] ([facility]) [id number] Malignant tumor of ascending colon Malignant Rafita or of Ascending Colon Problem 07/17/2019 12:00:00 AM EDT [place] ([facility]) [id number] Colostomy present Colostomy Present Problem 07/16 12:00:00 AM EDT [place] ([facility]) [id number] Malignant tumor of ascending colon Malignant Rafita or of Ascending Colon Problem 07/17/2019 12:00:00 AM EDT [place] ([facility]) K65.1 Peritoneal abscess Peritoneal abscess Diagnosis 08:19:05 PM [facility] left ileo psoas abscess and free air left ileo p soas abscess and free air Diagnosis 05/31/2019 06:13:27 PM [facility] Surgeries/Procedures Procedure Description Date Indications Data Source(s) Colonoscopy Thru Stoma Remove Tumor/Polyp/Lesion Snare Techn ique 03/25/2020 12:00:00 AM [facility] ([facility] tawana, ) RADIOLOGY REPORT RADIOLOGY REPORT 06/01/2019 1:23 PM EST 06/01/2019 06:23:47 PM [facility] IR IMAGE GUIDED NEEDLE DRAIN PROCEDURE IR IMAGE GUIDED NEED LE DRAIN PROCEDURE STAT 06/01/2019 1:10 PM EST 06/01/2019 06:10:00 PM [facility] BLOOD COUNT COMPLETE AUTOMATED CBC Routine 06/01/2019 5:59 A M EST 06/01/2019 10:59:00 AM [facility] PHOSPHORUS INORGANIC PHOSPHORUS LEVEL Routine 06/01/2019 5:[address] 06/01/2019 10:59:00 AM [facility] MAGNESIUM MAGNESIUM LEVEL Routine 06/01/2019 5:59 AM EST 06/01/2019 10:59:00 AM [facility] BASIC METABOLIC PANEL CALCIUM TOTAL BASIC METABOLIC PANEL Routi ne 06/01/2019 5:59 AM EST 06/01/2019 10:59:00 AM [facility] CT ABDOEN & PELVIS W/CONTRAST MATERIAL CT ABDOMEN PELVIS WI TH CONTRAST [id number] STAT 06/01/2019 12:16 AM EST 06/01/2019 05:16:56 AM [facility] BASIC METABOLIC PANEL CALCIUM IONIZED POCT ISTAT CHEM8 Routine 05/31/2019 7:11 PM EST 06/01/2019 12:11:00 AM [facility] BLOOD GASES ANY COMBINATION PH PCO2 PO2 CO2 HCO3 POCT ISTAT VBG /LAC Routine 05/31/2019 7:07 PM EST 06/01/2019 12:07:00 AM [facility] THROMBOPLASTIN TIME PARTIAL PLASMA/WHOLE BLOOD PARTIA L THROMBOPLASTIN TIME (PTT) STAT 05/31/2019 7:00 PM EST 06/01/2019 12:00 :00 AM [facility] PROTHROMBIN TIME PROTIME INR STAT 05/31/2019 7:00 PM EST 06/01/2019 12:00:00 AM [facility] BLOOD COUNT COMPLETE AUTO&AUTO DIFRNTL WBC COUNT CBC AND DIFFER ENTIAL STAT 05/31/2019 7:00 PM EST 06/01/2019 12:00:00 AM [facility] BLOOD TYPING ABO TYPE AND SCREEN STAT 05/31/2019 7:00 PM EST 06/01/2019 12:00:00 AM [facility] HEPATIC FUNCTION PANEL HEPATIC FUNCTION PANEL A STAT 0 7:00 PM EST 06/01/2019 12:00:00 AM [facility] BASIC METABOLIC PANEL CALCIUM TOTAL BASIC METABOLIC PANEL STAT 05/31/2019 7:00 PM EST 06/01/2019 12:00:00 AM [facility] EKG ED PHYSICIAN INTERPRETATION EKG ED PHYSICIAN INTERPRETATION Routine 05/31/2019 6:32 PM EST 05/31/2019 11:32:46 PM [facility] EKG 12-LEAD - CMAXX REPORT EKG 12-LEAD - CMAXX REPORT 05/31/2019 6:23 PM EST 05/31/2019 11:23:[address] [facility] EKG 12-LEAD - CMAXX REPORT EKG 12-LEAD - CMAXX REPORT 05/31/2019 6:23 PM EST 05/31/2019 11:23:[address] [facility] EKG 12-LEAD EKG 12-LEAD STAT 05/31/2019 6:23 PM EST 05/31/2019 11:23:11 PM [facility] EKG 12-LEAD - CMAXX REPORT EKG 12-LEAD - CMAXX REPORT 05/31/2019 6:23 PM EST 05/31/2019 11:23:00 PM EST [facility] Results ID Date Data Source [id number] 06/15/2020 04:13:54 PM EST [facility] [place] Name Value Range Interpretation Code Description Data Amarilis rce(s) Supporting Document(s) WBC 9.6 10*3/uL (4.1-11.0) [facility] [place] RBC 2.54 10*6/uL (4.60-6.10) L [facility] HGB 8.2 g/dL (13.5-18.0) L [facility] HCT 24.0 % (41.0-53.0) L [facility] PATIENT TRANSFUSED MCV 94.5 fL (80.0-95.0) [facility] MCH 32.4 pg (27.0-32.0) H [facility] MCHC 34.3 g/dL (32.0-36.0) [facility] RDW 14.8 % (10.5-14.5) H [facility] PLT 260 10*3/uL (150-450) [facility] MPV 6.8 fL (7.1-10.7) L [facility] ID Date Data Source [id number] 06/15/2020 04:28:53 PM EST [facility] CLERICAL CHECK CLERICAL CHEC K OKPRE RXN SPEC DEBORAH NORMALPOST RXN SPEC DEBORAH NORMALTRANSFUSION REACTION SEE SEPARATE TRANSFUSION REACTION REPORT FOR PAT HOLOGIST INTERPRETATION.TESTING SITE PERFORMED AT [address] [place], [place] [address]PATIENT ABO/Rh O POSITIVEDAT, C3 SPECIFIC NEGATIVEPOST RX NAHID NEGATIVE Name Value Range Interpretation Code Description Data Amarilis rce(s) Supporting Document(s) ID Date Data Source [id number] 06/16/2020 02:07:29 AM EST [facility] [place] PATIENT ABO/Rh O POSITIVEANT IBODY SCREEN NEGATIVESPEC EXP DATE 06/18/2020TESTING SITE PERFORMED AT [address] [address]BLOOD BANK COMMENT BLOOD TYPE CONFIRMED.UNIT NUMBER [id number] COMPONENT TYPE LEUKOPOOR RED CELLSUNIT DIVISION 00STATUS OF UNIT TRANSFUSEDTRANSFUSION STATUS OK TO TRANSFUSECROSSMATCH RESULT COMPATIBLE Name Value Range Interpretation Code Description Data Amarilis rce(s) Supporting Document(s) TYPE AND CROSSMATCH [facility] [place] PATIENT ABO/Rh O POSITIVE ID Date Data Source [id number] 06/15/2020 07:26:44 AM EST [facility] [place] Name Value Range Interpretation Code Description Data Amarilis rce(s) Supporting Document(s) WBC 9.7 10*3/uL (4.1-11.0) [facility] [place] RBC 2.00 10*6/uL (4.60-6.10) L [facility] HGB 6.7 g/dL (13.5-18.0) LL [facility] RESULT(S) CALLED TO AND READ BACK ANA ALONSO ON 5S AT 0725 ON 06/15/20 [place] [address] HCT 19.3 % (41.0-53.0) LL [facility] MCV 96.7 fL (80.0-95.0) H [facility] MCH 33.3 pg (27.0-32.0) H [facility] MCHC 34.5 g/dL (32.0-36.0) [facility] RDW 13.7 % (10.5-14.5) [facility] PLT 259 10*3/uL (150-450) [facility] MPV 6.9 fL (7.1-10.7) L [facility] ID Date Data Source [id number] 06/14/2020 07:43:25 AM EST [facility] Name Value Range Interpretation Code Description Data Amarilis rce(s) Supporting Document(s) SODIUM 140 mmol/L (136-145) [facility] POTASSIUM 3.7 mmol/L (3.6-5.2) [facility] CHLORIDE 106 mmol/L (100-108) [facility] CO2 25 mmol/L (22-31) [facility] ANION GAP 9 mmol/L (7-16) [facility] UREA NITROGEN 10 mg/dL (7-24) [facility] CREATININE 0.60 mg/dL (0.80-1.30) L [facility] BUN/CREAT RATIO 16.7 RATIO (10.0-20.0) [facility] GLUCOSE 89 mg/dL (70-99) [facility] CALCIUM 7.8 mg/dL (8.4-10.2) L [facility] GFR >60 ml/min/1.73m2 (>59) [facility] GFR ( AMER) >60 ml/min/1.73m2 (>59) [facility] GFR INTERPRETATION [facility] --NORMAL KIDNEY FUNCTION OR MILD DISEASE - GFR >OR= 60CHRONIC KIDNEY DISEASE - GFR 15 - 59RENAL FAILURE - GFR <15 Est. GFR calculation based on the MDRDstudy equation, which assumes a steadystate for creatinine. Est. GFR should notbe used for medication dosing. ID Date Data Source [id number] 06/14/2020 07:22:07 AM EST [facility] Name Value Range Interpretation Code Description Data Amarilis rce(s) Supporting Document(s) WBC 11.6 10*3/uL (4.1-11.0) H [facility] RBC 2.20 10*6/uL (4.60-6.10) L [facility] HGB 7.1 g/dL (13.5-18.0) L [facility] HCT 21.5 % (41.0-53.0) L [facility] MCV 97.4 fL (80.0-95.0) H [facility] MCH 32.4 pg (27.0-32.0) H [facility] MCHC 33.2 g/dL (32.0-36.0) [facility] RDW 13.6 % (10.5-14.5) [facility] PLT 217 10*3/uL (150-450) [facility] MPV 7.0 fL (7.1-10.7) L [facility] ID Date Data Source [id number] 06/13/2020 07:58:24 AM EST [facility] Name Value Range Interpretation Code Description Data Amarilis rce(s) Supporting Document(s) SODIUM 142 mmol/L (136-145) [facility] POTASSIUM 4.1 mmol/L (3.6-5.2) [facility] CHLORIDE 108 mmol/L (100-108) [facility] CO2 25 mmol/L (22-31) [facility] ANION GAP 9 mmol/L (7-16) [facility] UREA NITROGEN 12 mg/dL (7-24) [facility] CREATININE 0.57 mg/dL (0.80-1.30) L [facility] BUN/CREAT RATIO 21.1 RATIO (10.0-20.0) H [facility] GLUCOSE 82 mg/dL (70-99) [facility] CALCIUM 7.8 mg/dL (8.4-10.2) L [facility] GFR >60 ml/min/1.73m2 (>59) [facility] GFR ( AMER) >60 ml/min/1.73m2 (>59) [facility] GFR INTERPRETATION [facility] --NORMAL KIDNEY FUNCTION OR MILD DISEASE - GFR >OR= 60CHRONIC KIDNEY DISEASE - GFR 15 - 59RENAL FAILURE - GFR <15 Est. GFR calculation based on the MDRDstudy equation, which assumes a steadystate for creatinine. Est. GFR should notbe used for medication dosing. ID Date Data Source [id number] 06/13/2020 07:39:09 AM EST [facility] Name Value Range Interpretation Code Description Data Amarilis rce(s) Supporting Document(s) WBC 13.2 10*3/uL (4.1-11.0) H [facility] RBC 2.15 10*6/uL (4.60-6.10) L [facility] HGB 7.1 g/dL (13.5-18.0) L [facility] HCT 21.2 % (41.0-53.0) L [facility] MCV 98.5 fL (80.0-95.0) H [facility] MCH 33.0 pg (27.0-32.0) H [facility] MCHC 33.5 g/dL (32.0-36.0) [facility] RDW 13.9 % (10.5-14.5) [facility] PLT 170 10*3/uL (150-450) [facility] MPV 7.4 fL (7.1-10.7) [facility] ID Date Data Source [id number] 06/12/2020 08:20:25 AM EST [facility] Name Value Range Interpretation Code Description Data Amarilis rce(s) Supporting Document(s) SODIUM 141 mmol/L (136-145) [facility] POTASSIUM 4.2 mmol/L (3.6-5.2) [facility] CHLORIDE 108 mmol/L (100-108) [facility] CO2 27 mmol/L (22-31) [facility] ANION GAP 6 mmol/L (7-16) L [facility] UREA NITROGEN 15 mg/dL (7-24) [facility] CREATININE 0.91 mg/dL (0.80-1.30) [facility] BUN/CREAT RATIO 16.5 RATIO (10.0-20.0) [facility] GLUCOSE 98 mg/dL (70-99) [facility] CALCIUM 7.5 mg/dL (8.4-10.2) L [facility] GFR >60 ml/min/1.73m2 (>59) [facility] GFR ([facility] AMER) >60 ml/min/1.73m2 (>59) [facility] GFR INTERPRETATION [facility] --NORMAL KIDNEY FUNCTION OR MILD DISEASE - GFR >OR= 60CHRONIC KIDNEY DISEASE - GFR 15 - 59RENAL FAILURE - GFR <15 Est. GFR calculation based on the MDRDstudy equation, which assumes a steadystate for creatinine. Est. GFR should notbe used for medication dosing. ID Date Data Source [id number] 06/12/2020 08:20:25 AM EST [facility] [place] Name Value Range Interpretation Code Description Data Amarilis rce(s) Supporting Document(s) PHOSPHORUS 3.3 mg/dL (2.5-4.5) [facility] ID Date Data Source [id number] 06/12/2020 08:20:25 AM EST [facility] Name Value Range Interpretation Code Description Data Amarilis rce(s) Supporting Document(s) MAGNESIUM 1.7 mg/dL (1.7-2.4) [facility] ID Date Data Source [id number] 06/12/2020 07:50:13 AM EST [facility] Name Value Range Interpretation Code Description Data Amarilis rce(s) Supporting Document(s) WBC 14.0 10*3/uL (4.1-11.0) H [facility] RBC 2.82 10*6/uL (4.60-6.10) L [facility] HGB 9.5 g/dL (13.5-18.0) L [facility] HCT 27.7 % (41.0-53.0) L [facility] MCV 98.4 fL (80.0-95.0) H [facility] MCH 33.6 pg (27.0-32.0) H [facility] MCHC 34.2 g/dL (32.0-36.0) [facility] RDW 13.6 % (10.5-14.5) [facility] PLT 191 10*3/uL (150-450) [facility] MPV 7.7 fL (7.1-10.7) [facility] ID Date Data Source [id number] 06/19/2020 01:00:46 AM EST [facility] [place] [address]Prf# SURGICAL PATHOLOGY REPORTPatient Name:EVERTON STEPHENSON:1975Received:06/11/2020ccession #:[id number](s) [...] By Gali White D.O. jzwPathology Associates of SnohomishBradley[address] [place], [place] [address]Technical component performed at [facility], Histopathology, [address] [place] [address], [address].Reported at [facility], [address] [place] [address], [facility].This report may include immunohistochemical or in-situ hybridizationresults. Testing was developed and the performance characteristicsdetermined by [facility], as required byCLIA '88. The FDA has determined that approval for specific use is notnecessary for clinical use. The quality of Hematoxylin and Eosin stainsand as applicable, for all immunohistochemical and/or special stains,including positive and negative controls, were reviewed and consideredappropriate.ICD codes: Z85.512FYJ0 codes: A: 02426AK: 77944IB: 83588IQ: 51357TV: 78735RP: 31380B Name Value Range Interpretation Code Description Data Amarilis rce(s) Supporting Document(s) ID Date Data Source [id number] 06/14/2020 04:05:00 PM [place], [place] [address]PATIENT NAME: EVERTON STEPHENSONDATE OF : 1975REPORT: OPERATIONPATIENT NUMBER: [id number] STATUS: IPMEDICAL RECORD NUMBER: [id number] OF ADMISSION: 1DATE OF DISCHARGE:ROOM: 01DATE OF [...] We then went to try to do srvua-pf-ony anastomosis, but the circular stapler could not be passed fromthe anus all the way to the end adequately or even fine enough to do dlkru-vy-ucmn. Therefore, we cleansed the Anyi's pouch once [...] BEATRIZ Nassarictated: 06/11/2020 11:58DT: 06/11/2020 14:00Job #: [id number]: Abisai AlvarengaNOTE: [facility] generated reports are not confirmed orauthenticated unless they are signed by the providerElectronically Authenticated and Edited by:SHERRY HENDERSON MD On 06/14/2020 04:05 PM EST Name Value Range Interpretation Code Description Data Amarilis rce(s) Supporting Document(s) ID Date Data Source [id number] 06/15/2020 05:19:50 AM EST [facility] SPEC EXP DATE 06/14/2020TEST ING SITE PERFORMED AT [address] [place], [place] [address]UNIT NUMBER [id number] COMPONENT TYPE LEUKOPOOR RED CELLSUNIT DIVISION 00STATUS OF UNIT REL FROM ALLOCTRANSFUSION STATUS OK TO TRANSFUSECROSSMATCH RESULT COMPATIBLE Name Value Range Interpretation Code Description Data Amarilis rce(s) Supporting Document(s) ID Date Data Source [id number] 06/09/2020 12:00:00 AM EST [facility] Name Value Range Interpretation Code Description Data Amarilis rce(s) Supporting Document(s) SARS-CoV-2 (COVID-19) RNA [Presence] in Respiratory specimen by AGUSTIN with probe detection Not Detected [facility] This lab was ordered by [facility] and reported by [employer] ID Date Data Source [id number] 06/07/2020 03:33:02 PM EST [facility] SPEC EXP DATE 06/14/2020ATI ENT ABO/Rh O POSITIVEANTIBODY SCREEN NEGATIVETESTING SITE PERFORMED AT [address] [place] [address] Name Value Range Interpretation Code Description Data Amarilis rce(s) Supporting Document(s) TYPE AND SCREEN [facility] PATIENT ABO/Rh O POSITIVE ID Date Data Source [id number] 06/07/2020 02:39:11 PM EST [facility] Name Value Range Interpretation Code Description Data Amarilis rce(s) Supporting Document(s) SODIUM 142 mmol/L (136-145) [facility] POTASSIUM 4.4 mmol/L (3.6-5.2) [facility] CHLORIDE 106 mmol/L (100-108) [facility] CO2 30 mmol/L (22-31) [facility] ANION GAP 6 mmol/L (7-16) L [facility] UREA NITROGEN 12 mg/dL (7-24) [facility] CREATININE 0.86 mg/dL (0.80-1.30) [facility] BUN/CREAT RATIO 14.0 RATIO (10.0-20.0) [facility] GLUCOSE 92 mg/dL (70-99) [facility] CALCIUM 9.6 mg/dL (8.4-10.2) [facility] GFR >60 ml/min/1.73m2 (>59) [facility] GFR ( AMER) >60 ml/min/1.73m2 (>59) [facility] [place] GFR INTERPRETATION [facility] --NORMAL KIDNEY FUNCTION OR MILD DISEASE - GFR >OR= 60CHRONIC KIDNEY DISEASE - GFR 15 - 59RENAL FAILURE - GFR <15 Est. GFR calculation based on the MDRDstudy equation, which assumes a steadystate for creatinine. Est. GFR should notbe used for medication dosing. ID Date Data Source [id number] 06/07/2020 02:21:02 PM EST [facility] [employer] Name Value Range Interpretation Code Description Data Amarilis rce(s) Supporting Document(s) WBC 8.7 10*3/uL (4.1-11.0) [facility] [place] RBC 4.52 10*6/uL (4.60-6.10) L [facility] HGB 15.1 g/dL (13.5-18.0) [facility] HCT 44.0 % (41.0-53.0) [facility] [address] [facility] [address] MCV 97.2 fL (80.0-95.0) H [facility] MCH 33.3 pg (27.0-32.0) H [facility] MCHC 34.3 g/dL (32.0-36.0) [facility] RDW 13.7 % (10.5-14.5) [facility] PLT 250 10*3/uL (150-450) [facility] MPV 6.7 fL (7.1-10.7) L [facility] ID Date Data Source [id number] 06/05/2020 12:00:00 AM EST [facility] Name Value Range Interpretation Code Description Data Amarilis rce(s) Supporting Document(s) SARS-CoV-2 (COVID-19) RNA [Presence] in Respiratory specimen by AGUSTIN with probe detection Not Detected [facility] This lab was ordered by [facility] and reported by [employer]. ID Date Data Source [id number] 05/03/2020 12:00:00 AM EST [facility] Name Value Range Interpretation Code Description Data Amarilis rce(s) Supporting Document(s) SARS-CoV-2 (COVID-19) RNA [Presence] in Respiratory specimen by AGUSTIN with probe detection [facility] This lab was ordered by [facility] and reported by [employer] ID Date Data Source [id number] 04/28/2020 09:20:00 AM EST [facility] ([facility]) Name Value Range Interpretation Code Description Data Amarilis rce(s) Supporting Document(s) barbiturates screen, blood negative cutoff:0.1 normal B arbiturates Screen, Blood [facility]) amphetamines screen, blood negative cutoff:50 normal Amphetami binu Screen, Blood [facility]) cannabinoid screen, blood ++positive++ cutoff:5 Abnorm al (applies to non-numeric results) Cannabinoid Screen, Blood [place] ([facility]) cocaine + metab. screen, blood negative cutoff:25 normal Cocaine + Metab. Screen, Blood [facility]) opiates screen, blood negative cutoff:5 normal Opiates Screen , Blood [facility]) benzodiazepines screen, blood negative cutoff:20 normal Benzodiazepines Screen, Blood [facility]) phencyclidine screen, blood negative cutoff:8 normal Phencyclidine Screen, Blood [place] ([facility]) oxycodone screen negative cutoff:5 normal Oxycodone Screen AT [facility]) cannabinoid confirmation positive . normal Cannabinoid Confirmation [facility]) tetrahydrocannabinol(THC) 19.8 NG/mL . normal tetrahydro cannabinol(THC) [facility]) carboxy-THC 42.2 NG/mL . normal Carboxy-thc [facility]) cannabinol negative . normal Cannabinol [facility]) hydroxy-THC 4.7 NG/mL . normal Hydroxy-thc [place] ([facility]) cannabidiol negative . normal Cannabidiol [facility] ([facility]) ID Date Data Source [id number] 03/25/2020 12:06:00 PM EST [facility] Name Value Range Interpretation Code Description Data Amarilis rce(s) Supporting Document(s) Surgical pathology study Laboratory test result [facility] ([facility], ) FINAL DIAGNOSIS Colon, polyp, polypectomy: Tubular adenoma. 03/26/2020 - 1219 CLINICAL DIAGNOSIS Colon cancer 03/25/20201522 GROSS DIAGNOSIS Received in formalin labeled "snare colon polyp" is one fragment of hennessy tissue, 0.3 x 0.3 x 0.2 cm. All in one. -SV 03/25/20201522 Signed ALYSIA QUINTANILLA MD 03/26/2020 1221 ID Date Data Source [id number] 03/20/2020 09:20:00 AM EST [facility] Name Value Range Interpretation Code Description Data [facility] rce(s) Supporting Document(s) SARS coronavirus 2 RNA [facility] This lab was ordered by [facility] and reported by [employer]. ID Date Data Source [id number] 11/24/2019 10:27:[address] [facility] Measurements & CalculationsHeight: 69 inches (5 [...] (ER) or urgent care clinic? 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 He has asked his oncologist their opinion on his ability to work and he feels like they do not want to address this. I have kept him out of work until December 14 but apparently [facility] has told him that they will not [...] & Plan Problems:Assessed:Malignant neoplasm of ascending colon (JOW81-R03.2) Assessment: Instructions: Offered to extend disability for [...] ElectronicOrders:Adult - Ofc Vst, EST, Level III [CPT-08869] Medications:IBUPROFEN 800 MG ORAL TABLET (IBUPROFEN) One po q6h prn pain. MDD 4. #60[Tablet] x 0 Route:ORAL Entered and Authorized by: Daniel Henderson MD Method used: Electronically to [facility]* (retail) [address] [place] [address] [address] [place] [address] Note to Pharmacy: Route: ORAL; RxID: [id number] signed by Daniel Henderson MD on 11/24/2019 at 11:26 AM Name Value Range Interpretation Code Description Data Am[facility] rce(s) Supporting Document(s) ID Date Data Source [id number] 10/21/2019 01:46:[address] [facility] Measurements & CalculationsHeight: 69 inches (5 [...] (ER) or urgent care clinic? No - [facility] Emergency room (ER) or urgent care [...] during this visit, including review of any yknc-swn-xldlbtx medications, herbal therapies, and/or supplements.Allergy ReviewAllergy List [...] care.Diet and exercise.Assessed:Malignant neoplasm of ascending colon (UNV68-K21.2) Assessment: Instructions: Recheck with cancer specialists and surgeons as scheduled.Opioid abuse with other opioid-induced disorder (XTD87-Y08.188) Assessment: Instructions: Doing well.Continue current dose of [...] FILM-One film once daily. MDD 1. VERENA [id number] ICD10 F11.10 Qty: 30[Film] Refills: 0 Method: ElectronicAllergies:No Known Allergies (updated 11/27/2018) Orders:Other Lab [[id number]] Adult - Ofc Vst, EST, Level III [CPT-20215] Follow-Up Return to clinic: 1 month. for follow upMedications:SUBOXONE 8-2 MG SUBLINGUAL FILM (BUPRENORPHINE HCL-NALOXONE HCL) One film once daily. MDD 1. VERENA [id number] ICD10 F11.10 #30[F ilm] x 0 Entered and Authorized by: Daniel Henderson MD Method used: Electronically to [id number]* (retail) [address] [place] [address] Fax: RxID: [id number] signed by Daniel Henderson MD on 10/21/2019 [...] rce(s) Supporting Document(s) ID Date Data Source [id number] 07/17/2019 02:51:[address] [facility] Measurements & CalculationsHeight: 69 inches 175.26 [...] & Plan Problems:Added: H/O: colostomy (ICD- V44.3) (JUS01-N44.3)Malignant neoplasm of ascending colon (ICD10- C18.2)Assessment not SavedOpioid abuse with other opioid-induced disorder (ICD1 0-F11.188): ] Assess ment & Plan Orders:Adult - Ofc Vst, EST, Level III [CPT-94425] Name Value Range Interpretation Code Description Data Amarilis rce(s) Supporting Document(s) ID Date Data Source [id number] 06/03/2019 04:21:19 PM EST [facility] Name Value Range Interpretation Code Description Data Amarilis rce(s) Supporting Document(s) Discharge Summary [facility] OYFITh6jBvCWMwYp16/RDHwoZAYrn9PhGAczXXh1JNwgTXMuO0OeRMX7iZ4iEZR8DGcVZvNjTuZaLRL8 lbm [file] E+DQogICAgICAgICAgICAgICAgICAgICAgICAgICAgICAgICAgICAgICAgICAgICAgICAgICAgICAgIC AgICAgICAgICAgICAgICAgICAgICAgICAgICAgICAgICAgICAgICAgICAgDQogICAgICAgICAgICAgIC AgICAgICAgICAgICAgICAgICAgICAgICAgICAgICAg ICAgICAgICAgICAgICAgICAgICAgICAgICAgICAgICAgICAgICAgICAgICAgICAgICAgICAgDQogICAg ICAgICAgICAgICAgICAgICAgICAgICAgICAgICAgICAgICAgICAgICAgICAgICAgICAgICAgICAgICAg ICAgICAgICAgICAgICAgICAgICAgICAgICAgICAgIC AgICAgDQogICAgICAgICAgICAgICAgICAgICAgICAgICAgICAgICAgICAgICAgICAgICAgICAgICAgIC AgICAgICAgICAgICAgICAgICAgICAgICAgICAgICAgICAgICAgICAgICAgICAgDQogICAgICAgICAgIC AgICAgICAgICAgICAgICAgICAgICAgICAgICAgICAg ICAgICAgICAgICAgICAgICAgICAgICAgICAgICAgICAgICAgICAgICAgICAgICAgICAgICAgICAgDQog ICAgICAgICAgICAgICAgICAgICAgICAgICAgICAgICAgICAgICAgICAgICAgICAgICAgICAgICAgICAg ICAgICAgICAgICAgICAgICAgICAgICAgICAgICAgIC AgICAgICAgDQogICAgICAgICAgICAgICAgICAgICAgICAgICAgICAgICAgICAgICAgICAgICAgICAgIC AgICAgICAgICAgICAgICAgICAgICAgICAgICAgICAgICAgICAgICAgICAgICAgICAgDQogICAgICAgIC AgICAgICAgICAgICAgICAgICAgICAgICAgICAgICAg ICAgICAgICAgICAgICAgICAgICAgICAgICAgICAgICAgICAgICAgICAgICAgICAgICAgICAgICAgICAg DQogICAgICAgICAgICAgICAgICAgICAgICAgICAgICAgICAgICAgICAgICAgICAgICAgICAgICAgICAg ICAgICAgICAgICAgICAgICAgICAgICAgICAgICAgIC AgICAgICAgICAgDQogICAgICAgICAgICAgICAgICAgICAgICAgICAgICAgICAgICAgICAgICAgICAgIC HiNNFpPVRyELFiXCNkHRHeIWCkKNFeAWKjTIYxWGGxCWScMUFuDYUyGZLpBJGsLYJsIZVpOYo0W6siAE VqROWjBF4nWMi9Yg8+TOgOOtSpCBT0gcVasD3GQH1k r1ItQAjnWDAxm1RiLZi3WZ0LRBOaXKomFD9VLNcmvq2IGUWoCKTmbWGFf4dtPgIlHHH2KJWkHfwlPE9Y FKRgI5uiyhKaVGFnKLONFFirXSGEJWacCSJMFQXwHNSzTaVjOWxvAR1Kn6McbTV0SAv+Xb5PWU6up7Bg VCgrVlHfEK7wvp1VOTcUTaBtX9JvspG8QBF3UKVlQi 3DTMPzWVNuoJNmFjAjOOKCJwMdO2TwvD74PGCDQo6+JAdmpdTqQwuDHrD8YDJxx4CnTSx0BD0WRAJcDC u9nKFaPRqwS1xockseODH6yE6hnbuoDmnuASvkNG9hHNDCqKudKSW7XQC2OBawQLNvBUFpIW7dAc6cYM RkNBJ2HjV8KZMEJE8VGONvNLEjpQMaYTIpHVPNMP0X ZPixWKD4HNHirnCjeUVtNKmvFO3JGYEtgzYuGnTkESRWQGy+Rp2SIV1qe7GhJAeiJWMoRH2zbg1MOIlJ NyZeS0U1nFTrA5Y1OSdeUc2LSPBaGEYgDcOhTSORCWaeVT2NCI1acrU2UW9HfGXiKHBwQTTpkKWrFQf3 Q33wxFScAEgmEG7CNMX+aNomy+Mb7GWUMoJMXaQCLvVx CuMQRVFsQyY1TwJ8VQe3CvU8ErAA37zAfrnnQhNYctNH6QWB0kKUZjYJCQTF3DtEFwfR5pvdIiUsQpNE NTLbNsC49iiZKcPUDhVRU4QUVrXe7PLVGqF1ChdvCawCaygoVaTKTqYHQUEQ6GKEydacVvxHBkjJrxDG 09uNldSG0LOm3GLpZcEN7gkg0KjDStTc7OIPOsQD2R GOVjDJLhOISoMJY9WLBmMeLlBXaqXHSsSHNmPAL3SVLzBXTwPY5FQeVuCFKxGVk0BAXuRKWbRLPzsh1A MOMmCJOdPJNiALBcQLXyVCYcQXyeIFQaPATtYUN1RNLmBOUoVP3WFgDcBVLsIKYiGMTzJZSiFHUqev8W IZUtVAXaTVE5FBSpXGLeMWCqIUohMERtYZR9PZT7NJ BqLJDoSE9LGaCrBGRuXFbeKxQtHBPzFOKzej3BNUNpMRErOHJdZYOoAYXhNJVaWVrnWVKeCJOfHAV5PC DhVQCkNQ3OUxMmUMEoWJTkHfwmBJPyLVGldl8TEAGnXPGcVnX3BQTwNVLoDJCjTTpkJIKdJAZ1WHY5RE IrCMUzXF2BCxWmBBHkOGA3WJJbOJZaSPEklg2MVGBr GEKqZGh6VLHsQMIiLMXyINrrWQHtXHK7JrG3TXHgHDQdWR8YAuUuWLWrMAF4JDPmQNCmEOYvyu7VGECa BKBnXkYnBPSnJOBnBTMbJKbmCYLaGZD3RZa0HPBcPIDlQN9WOeRwHSJfEOqsQTZvURKhGPWiyc7ZEHWp FYEiBuI9OTQqEMZrMWByVZqnKUQrQAV8ZLQ6TTYwGW KxFI4GChCfPFYdURu0TvebLOCnUGDzml9IWGPyTVJkELzrMITxMDAqACPcQDkuAGJsUKZ5ZfQ8SVGkKZ VgHR9RJnKmFLRvRuA7DhTcJEFrHXMwad9CLOIpAECcODe1EkErOEIwOSIyJVepDLWwUWIqXLN8FFMsAC YjAO5MPjIcFWefZRZSWql7VYdyB2g6NNEgFS4UV7Fv w3YlCrjvWGDJAEtdXX8sbmTfOMMoXg4HV7iCGmrcWfFrDPWjLZnlPIO9PLOmX8YiMvP9KKekISWvI1Bh TP7gSPPoBOXdUMHiDAUpXdHcTAGzWjEyQar7O2ZcFHWxXsA0VsJbTR1XEi2XRdZ7JGZ6nVVsJt6YUaGw DIrOJjWnXG2EAYu= ID Date Data Source [id number] 06/02/2019 10:47:14 AM EST [facility] Name Value Range Interpretation Code Description Data Amarilis rce(s) Supporting Document(s) Consultation [facility] HKLPOt3lIkSHWpBv50/JCKisYMQun4SaFGwkXPg5ICnuACGaP6OcJLS4oF4bRNE8IWvANaCkOtIsMIY1 lbm DwSoqZWkQvXZKuLejRVoWsYAkyFgkqkYQqYI9DrPW8ZKQkV68zJQTwOKWyM2LeUTAcCAa+Cn0HCLOnpB SoCQ1EZkjP4Regd2v1RU5rQQ8XRbnus74nqtuURKQ54JDNs46vXQ4pPaNRdOeUBdy2ZYwIXy769ZHcaJ kowzzmfiIcrME2L4O0zWmQH1AzDkD//6pBYoMgUMX/ 2caTnsioXe24H6wacKKSs/UV6iuVTOMCNEMI/JaPGsdxamqih8JUgvdih0ihoudhmLX5xAL41Ck93TG0 juIFCFZhl0kLKqLTep/37erkVUyzgwI2/1eu1lbn2qZ4hmfvVG8PiO4Lx9groIJvztDoMtZmooKVeQ3w UfcoYie4EhsuwqJaXHda0U1f7xk8wM8alcNVwgmwH3 Upyz/aNeXEDcvzQ8M8bn3ROiEM2eO3v7SGmYCNa4Fee7/BvOxnjP9Nk0phrxa8c6JaIltvrXd+KAxn2Z 9lEQZxYbygToxqYm/NR6zlqMFoWfTj8c8F8Uj3ni8Aw5JjmrLlxG47Kh+jbLe4nxhQlCCcmFl/cSQ3Fc /mA1GQRxTERVCBm9/osw8bAZ5nvdigP0dGZ0WnntsC qV10B3VnYivwRC4TSRcCbfuI5VuhczudZXQWPS4u64aJq1FgbkxSabfNAGw2fimFelwRbKi9k19Noref rBcrSh4zEanp3gKuIvX3MK3/eTm5MmfDVdyLHg32/htKoS7Z5hwaX9dCeR2jUq5XiENdHH3cvWiAxG2b U70S67I9sCg83cUypc2e1ZP89cLVA2qQZ1VS/Cd10Y [file] ICAgICAgICAgICAgICAgICAgICAgICAgICAgICAgICAgICAgICAgICAgICAgICAgICAgICAgICAgICAg ICAgICANCiAgICAgICAgICAgICAgICAgICAgICAgIC AgICAgICAgICAgICAgICAgICAgICAgICAgICAgICAgICAgICAgICAgICAgICAgICAgICAgICAgICAgIC AgICAgICAgICAgICAgICANCiAgICAgICAgICAgICAgICAgICAgICAgICAgICAgICAgICAgICAgICAgIC AgICAgICAgICAgICAgICAgICAgICAgICAgICAgICAg ICAgICAgICAgICAgICAgICAgICAgICAgICANCiAgICAgICAgICAgICAgICAgICAgICAgICAgICAgICAg ICAgICAgICAgICAgICAgICAgICAgICAgICAgICAgICAgICAgICAgICAgICAgICAgICAgICAgICAgICAg ICAgICAgICANCiAgICAgICAgICAgICAgICAgICAgIC AgICAgICAgICAgICAgICAgICAgICAgICAgICAgICAgICAgICAgICAgICAgICAgICAgICAgICAgICAgIC AgICAgICAgICAgICAgICAgICANCiAgICAgICAgICAgICAgICAgICAgICAgICAgICAgICAgICAgICAgIC AgICAgICAgICAgICAgICAgICAgICAgICAgICAgICAg ICAgICAgICAgICAgICAgICAgICAgICAgICAgICANCiAgICAgICAgICAgICAgICAgICAgICAgICAgICAg ICAgICAgICAgICAgICAgICAgICAgICAgICAgICAgICAgICAgICAgICAgICAgICAgICAgICAgICAgICAg ICAgICAgICAgICANCiAgICAgICAgICAgICAgICAgIC AgICAgICAgICAgICAgICAgICAgICAgICAgICAgICAgICAgICAgICAgICAgICAgICAgICAgICAgICAgIC AgICAgICAgICAgICAgICAgICAgICANCiAgICAgICAgICAgICAgICAgICAgICAgICAgICAgICAgICAgIC AgICAgICAgICAgICAgICAgICAgICAgICAgICAgICAg ICAgICAgICAgICAgICAgICAgICAgICAgICAgICAgICANCiAgICAgICAgICAgICAgICAgICAgICAgICAg ICAgICAgICAgICAgICAgICAgICAgICAgICAgICAgICAgICAgICAgICAgICAgICAgICAgICAgICAgICAg ICAgICAgICAgICAgICANCjw/yNReT6tpnGMjtpG9Y0 jvBp1VBz8YQB0vz0UpXZEsEArpwyWzHocAWxKwGMBoIixWZcq5MVdiDQ3SbWRdR9CnN7FySCofAL5PYY PrGBAfbTXnNRZfACFtRvW7FEXiHGchYJ9JpVEyHPvtSKBiBPWzZpZsCXLsPY0MULYmH534qjBgFf5QMc 4LYeGvOG3yzk3GEGotNMKoByhATlk5AJqiNA4EzNIu tNPwXQFzNWHFHtWkG5lmp7CbHsOxKXEDIQxbGY6Jw6WpoRWyVCy+Vt9BUP5xh0GrRRpxBIGnAT9urw8A PIuUCiQsE8BdoCjzWYVrkuN0vUKuFCF4MJM0PDDtZSXeEGSqwX8gvrSdZO2LGaEfKCNtST2wRz2nSRVv DAY4NtK1KJIAFO8NMVOyMBAjwKXbLHMdCBNPPV7MCO yqFVW8TZHmmjRiyQPhLAgqMW7ZVTUkuiWmKAnpOMVPBEq+Cb3OSV4gx2XmFGtiRFLwSH5dcf5DTAuJBt AcY4T1yWWwG1B4NOotZh3ZBBMfHMGrGOfrRDKIOCqeST6DFE7ckiC2YP3KcDSxMSEoSFYcbVOsFAo6H2 1jlUArSAqiVO7KPPC+Naomy+Ke9JRUYkJFSyPHNtExYc PBDKYqYnU8SiM9TCh8LgM8FtPT34iYzumdNgQUbkBI3YPR6tXVPdUZJWZP2HmODfuA0ujmMpGNTwCYMV BgNhO44qjHXkQWYtZXU0OXSdRo0KONKaU1JsuaYasWdpjiXlIDBwAJMKRB8AZSpaifIhqWIrkRolIE95 zHsaSA6EVx8YKhOoXY5fro3ZyQHoOy4GFYPtPv6TFC KkCGOvMJGfCLD7CJNhRaNgBDagOCJpIBXgLFS1ADOfCFVnSJ7MGcLcRNQsMLY6VXlrOYApMGIctw7JUS GlRMGeRkY5YJMhRYHaPUCzKIppGYCmLBTrZFD6TAKoCEPjTZ8PUkKaNKDmHBKvRLjjPRJuTZUkmo7QHG UiSLCmFrY8EIOvWMWuPWKnQOroLVRyKKO6QzX9GHKx QDJpFJ4FGsYkUSZkBJV1UNSlXHKuXUVffv1QUCMaXGSeYbO0MHWzHZBcIXWkKKofUOPtDRF8AgU4XBCk AKMqUU9GJjVdRNScTFa5KXDcAFYoCFPrcu1ZZZQpYPFuPYoyAVIgSWAxFGKmZLjbBFDiUGZ3OFA0BSPf NOOiWJ0HJaBmKCJqWYnrWVFzXJBaFQFbyr6AXGNvSS EsOFU6KBTmZDHtMVRvDTkbAYTtMQYqJxBuDLTtPQUtHF7BKhKgWCNeUNA4KsItDBRiEBNgfx2XHFHrKA UjJHo1FPNpISHrYWVyNHqlDOEjCMOoEPGeDVStGLDzIB1RLqLlZQTmZNJ5BzSlUAPuXUDchv4QTDIkGE RrBbOsLUViLGCiXMJkRVe1yyJzzYLsBUb0GS1EL6Ce nuPoBlFYUw3Le180UCYhMQMxVt2FF1zyId2bCSOmPGMWIp1FGUc6J7EnNanjGSNjIhJjVAR6RzD8VeSk GtJePfy9VFU9YqP+NKw3IBL0UEA8WJNoAAQ6KSpkWLWzPiOdDGPqCUpgRoWkMr5zQGAACi8+DQpzdGFy sOpmHPQAZxZiSLU9KRiuZUXRBo5Y ID Date Data Source [id number] 06/02/2019 10:11:53 AM EST [facility] Name Value Range Interpretation Code Description Data Amarilis rce(s) Supporting Document(s) ED Provider Note [facility] NJIMUh1fEnEGWbBk82/YDTliTMKhq5TzYQejQZc5SSucOIIbG7KeETI4mM9sBDJ0GTiJJzGmPuKxVWY8 lbm [file] 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+TYPqyDVyADXdKuiUrfGc4jB8quYXrzE41UX0hZ [file] F3XZQ1WMgxXZNZEl7G ID Date Data Source [id number] 06/02/2019 09:25:13 AM [facility] IR IMAGE GUIDED NEEDLE DRAIN PROCEDUREFI [...] injection with 2% lidocaine, for single step tidh-ntf-wrmssq technique placement of a 12 Chadian resolve pigtail drainage catheter into this collection [...] and uncomplicated ultrasound-guided left pelvic abscess 12 Chadian drain placement with sample sent.This document has been electronically signed by Gio Valles MD on 06/02/2019 9:22 AM Name Value Range Interpretation Code Description Data Amarilis rce(s) Supporting Document(s) ID Date Data Source [id number] 06/02/2019 08:38:17 AM [facility] Name Value Range Interpretation Code Description Data Amarilis rce(s) Supporting Document(s) [facility] EZDQIw5lTbEICqDf36/KWHumPIOqo6YgTOlbWOw2QUqsVPQgQ0XoZTX8jF8aARK4FLeYRnEkKxTrWIO7 lbm [file] ttOPDKKzf4IJzHJeMxLS7QSLu= ID Date Data Source [id number] 06/02/2019 09:54:50 AM EST [facility] Cmnt XXX-Imp : Gram Stn XXX : 2W BC'S Seen.2Gram-positive coccusin efari7Rhjr-oxvlvcxg bacillus (organism)Microorganism XXX Cult : 4Escherichia coli (organism)Organism of questionable significance. No further workup hl2Erwrzlhjscfqc [facility] Name Value Range Interpretation Code Description Data Amarilis rce(s) Supporting Document(s) ID Date Data Source [id number] 06/01/2019 06:20:06 AM [facility] Name Value Range Interpretation Code Description Data Amarilis rce(s) Supporting Document(s) Leukocytes [#/volume] in Blood by Automated count 13.7 10*3/uL 4-10 H [facility] Erythrocytes [#/volume] in Blood by Automated count 3.45 10*6/uL 4.6- 6.1 L [facility] Hemoglobin [Mass/volume] in Blood 10.3 g/dL 13.5-18 L [facility] Hematocrit [Volume Fraction] of Blood by Automated count 30.6 % 4 1-53 L [facility] Erythrocyte mean corpuscular volume [Entitic volume] by Auto mated count 88.8 fL 80-96 [facility] Erythrocyte mean corpuscular hemoglobin [Entitic mass] by Automated count 29.8 pg 27-33 [facility] Erythrocyte mean corpuscular hemoglobin concentration [Mass/volume] by Automated count 33.5 g/dL 32.0-36.0 [facility] width [Ratio] by Automated count 14.2 % 11.5-14.5 [facility] Platelets [#/volume] in Blood by Automated count 969 10*3/uL 150-400 H [facility] ID Date Data Source [id number] 06/01/2019 07:04:07 AM [facility] Name Value Range Interpretation Code Description Data Amarilis rce(s) Supporting Document(s) Bicarbonate [Moles/volume] in Serum 23 mmol/L 22-29 [facility] Chloride [Moles/volume] in Serum or Plasma 102 mmol/L 98-107 [facility] Creatinine [Mass/volume] in Serum or Plasma 0.60 mg/dL 0.70-1.20 L [facility] Glucose [Mass/volume] in Serum or Plasma 88 mg/dL 70-140 [facility] Potassium [Moles/volume] in Serum or Plasma 4.0 mmol/L 3.4-5.1 [facility] Sodium [Moles/volume] in Serum or Plasma 140 mmol/L 136-145 [facility] Urea nitrogen [Mass/volume] in Serum or Plasma 9 mg/dL 6-20 [facility] Anion gap 3 in Serum or Plasma 15 mmol/L 8-15 [facility] Osmolality of Serum or Plasma by calculation 288 mosm/kg 275-300 [facility] Creatinine/Urea nitrogen [Mass Ratio] in Serum or Plasma 15 [facility] Calcium [Mass/volume] in Serum or Plasma 8.3 mg/dL 8.6-10.0 L [facility] Glomerular filtration rate/1.73 sq M pre dicted among non-blacks [Volume Rate/Area] in Serum or Plasma by Creatinine-based formula (MDRD) >6 0 [facility] Glomerular filtration rate/1.73 sq M pre dicted among blacks [Volume Rate/Area] in Serum or Plasma by Creatinine-based formula (MDRD) >60 [facility] ID Date Data Source [id number] 06/01/2019 07:04:07 AM [facility] Name Value Range Interpretation Code Description Data Amarilis rce(s) Supporting Document(s) Magnesium [Mass/volume] in Serum or Plasma 1.8 mg/dL 1.6-2.6 [facility] ID Date Data Source [id number] 06/01/2019 07:04:07 AM [facility] Name Value Range Interpretation Code Description Data Amarilis rce(s) Supporting Document(s) Phosphate [Mass/volume] in Serum or Plasma 2.8 mg/dL 2.5-4.5 [facility] ID Date Data Source [id number] 06/01/2019 12:28:17 AM [facility] CT ABDOMEN PELVIS WITH CONTRAST [id number] AL RESULTInterpreted by:Russ Sanchez, MDPROCEDURE INFORMATION: Exam: [...] rce(s) Supporting Document(s) ID Date Data Source [id number] 05/31/2019 09:34:12 PM [facility] Name Value Range Interpretation Code Description Data Amarilis rce(s) Supporting Document(s) [facility] ZQGTRe6xVmTXIiWub2NvWwMeLSUzGW3onen5U7J0pJIjC7AerKSrk6dwC2LrL1TeWXWpOHTATV3ZjTJi jb2 [file] 34RwonMChRMVzlDu+0YMa5w319YZO6eOJ9Kvek+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 0I/+NMZ6v/jQEVdzPs0l/DhEATG6DNSLE5422lpXY6DsWoc5gsglETSOMEYUR4fu0YF6K74ufw4ceney XL0zHDeu8v7ka4630MvsRBDjhRR7RXGnF6olLqvMP86TQeieXv9u2ndqb+radKdiW67BNXFvzZO8tNgI WYKUaEQpF1rpeCN6E9wXGf1laFDS1cMdYMFcN/qBXx i2tSUXD4M0075fjrsKJGP5ZQbARiwR6djDXpUIbBm5ZCZm5EPODLYbxxrrr03jygdG6qbIQrUngFFfTM vSb2fHuN712ru/u+wnt8vcpcql+FsPJTLiwQaiu422aK768TgSYklYHSxpAWT5FiH4+OMLt9177nPFYJ 42lWynANilOIqJitLs1r/qieOT9mgSrFCiPGtzjDxO bHXAdFRWK9pAPf488s97whvJBfXW1S1Je92vsUoRgKFgbvUcdx136OkIV+U3JaEo1oI/SKB0yvikGnW4 2X1E618e5vtqf9vIDN2OEqIpZWZQFN5faXptr1/H1F56V2ff0+baLcdx+LUe77S+gcinpOOFHnXZT7/n J4t9ZkU5tJV71ZMInXslRkH3uOwvXUYMZytbIsTvIY 1ISU8LZrs8Cl+32jaRPlSzx5YoXBpCMLzAWRC3Javrt5rmrWndbTfv+5VMnpIOQv2t0bDb342u3DV3m0 c2BiheughIusGxtkufLpstxg71E3QgS5WhmMY31wGSrWzmUef/O+szn1jJ/ncReU8XvI/KEA2j3yU4ob Simon+zuL6iE5U9zoXxFDbL2OUu/OLTjqIl2p3b5Eg83 [file] Uex3zaOkXpjPiiDf4QTQkGbpKaoM6z1eLFelbIvA6zTl0+uvk2SbD6Kv44vpLWfrRWDWPRRtopAqk/VÍCTOR [file] AwMDAgbiAKMDAwMDAwMDQwOSAwMDAwMCBuIAowMDAw TNQzCWBuBJJpGWUsOF6zIkSdMMEtUWQ8FZIeSYDxQIEvdmQWRXIvILDrLHq8VAOaDLSsRWVaYMvnVOLb GYYnIDS9DFHdZTObBY9oWdAzVOZoPQI2EjPbGWKuRSIkrjCSIYHuCYQkRPO6McAqHZEbQNVyMCqbHYRh TNTyYHcxYNGiNERzDK5pUzKzRIXlCBLhZGyoUBJpAM GevoRKKZNyVWYfYOWlQrGqPEElVKFeILxwPUNgQUznMXZ0IZOvNCZbVC7iBfSoCFKwHMN4AOctBGZbDB GoouNQVLBrTWLlFStlJUQcXKLgFIBuLOwtPVSdRLItCGM5VDAaBSXnCF2sScAyDJMtOAXfKBVgAnD2Yj EnZtTGpTBooVgpvqo5ROmgF4h9MAFkMAkrEZ7jjoNu WDVmTvbgDv0jiBT4XXTsBtkTTs0Dq7UyuvX2hlIgGjf1IDItWaEdUV5W ID Date Data Source [id number] 05/31/2019 07:54:38 PM [facility] Name Value Range Interpretation Code Description Data Amarilis rce(s) Supporting Document(s) Sodium [Moles/volume] in Blood 135 mmol/L 136-145 L [facility] Potassium [Moles/volume] in Blood 3.9 mmol/L 3.4-5.1 [facility] Chloride [Moles/volume] in Blood 99 mmol/L 98-107 [facility] Carbon dioxide, total [Moles/volume] in Blood 28 mmol/L 22-29 [facility] Calcium.ionized [Moles/volume] in Blood 1.18 mmol/L 1.13-1.32 [facility] Glucose [Mass/volume] in Blood 84 mg/dL 70-140 [facility] Urea nitrogen [Mass/volume] in Blood 11 mg/dL 6-20 [facility] Creatinine [Mass/volume] in Blood 0.5 mg/dL 0.70-1.20 [facility] Hematocrit [Volume Fraction] of Blood 34 % 41-53 L [facility] Hemoglobin [Mass/volume] in Blood by calculation 11.6 g/dL 13.5-18.0 [facility] ID Date Data Source [id number] 05/31/2019 07:54:38 PM [facility] Name Value Range Interpretation Code Description Data Amarilis rce(s) Supporting Document(s) pH of Venous blood 7.38 7.36-7.41 [facility] Carbon dioxide [Partial pressure] in Venous blood 46 mmHg 40-45 H [facility] Oxygen [Partial pressure] in Venous blood 29 mmHg [facility] Base excess standard in Venous blood by calculation 2 mmol/L [facility] Oxygen saturation Calculated from oxygen partial pressure in Venous blood 54 % 60-85 L [facility] Lactate [Moles/volume] in Venous blood 0.8 mmol/L 0.5-2.2 [facility] Bicarbonate [Moles/volume] in Venous blood 29 mmol/L [facility] ID Date Data Source [id number] 06/05/2019 10:35:48 AM [facility] Cmnt XXX-Imp : Microorganism XXX Cult : No growth (qualifier value) Name Value Range Interpretation Code Description Data Amarilis rce(s) Supporting Document(s) ID Date Data Source [id number] 06/05/2019 10:35:48 AM [facility] Cmnt XXX-Imp : Microorganism XXX Cult : No growth (qualifier value) Name Value Range Interpretation Code Description Data Amarilis rce(s) Supporting Document(s) ID Date Data Source [id number] 05/31/2019 07:19:33 PM [facility] Name Value Range Interpretation Code Description Data Amarilis rce(s) Supporting Document(s) Leukocytes [#/volume] in Blood by Automated count 13.6 10*3/uL 4-10 H [facility] Erythrocytes [#/volume] in Blood by Automated count 3.46 10*6/uL 4.6- 6.1 L [facility] Hemoglobin [Mass/volume] in Blood 10.2 g/dL 13.5-18 L [facility] Hematocrit [Volume Fraction] of Blood by Automated count 31.1 % 4 1-53 L [facility] Erythrocyte mean corpuscular volume [Entitic volume] by Auto mated count 89.9 fL 80-96 [facility] Erythrocyte mean corpuscular hemoglobin [Entitic mass] by Automated count 29.5 pg 27-33 [facility] Erythrocyte mean corpuscular hemoglobin concentration [Mass/volume] by Automated count 32.8 g/dL 32.0-36.0 [facility] E[facility]th[facility] distribution width [Ratio] by Automated count 14.6 % 11.5-14.5 [facility] Platelets [#/volume] in Blood by Automated count 962 10*3/uL 150-400 H [facility] Differential cell count method - Blood [facility] Neutrophils/100 leukocytes in Blood by Automated count 69 % [facility] Lymphocytes/100 leukocytes in Blood by Automated count 17 % [facility] Monocytes/100 leukocytes in Blood by Automated count 13 % [facility] Eosinophils/100 leukocytes in Blood by Automated count 0 % [facility] Basophils/100 leukocytes in Blood by Automated count 1 % [facility] Neutrophils [#/volume] in Blood by Automated count 9.35 10*3/uL 1.8-7 .0 H [facility] Lymphocytes [#/volume] in Blood by Automated count 2.31 10*3/uL 1.2-4 .0 [facility] Monocytes [#/volume] in Blood by Automated count 1.82 10*3/uL 0-0.8 H [facility] Eosinophils [#/volume] in Blood by Automated count 0.04 10*3/uL 0-0.5 [facility] Basophils [#/volume] in Blood by Automated count 0.11 10*3/uL 0-0.2 [facility] Nucleated erythrocytes/100 leukocytes [Ratio] in Blood by Automated count 0 /100{WBCs} 0-0 [facility] ID Date Data Source [id number] 05/31/2019 07:39:39 PM [facility] Name Value Range Interpretation Code Description Data Amarilis rce(s) Supporting Document(s) Prothrombin time (PT) 13.9 s 12.5-14.9 [facility] INR in Platelet poor plasma by Coagulation assay 1.03 [facility] Routine intensity oral anticoagulation I NR is typically 2.0-3.0. Target INR must be clinically individualized. ID Date Data Source [id number] 05/31/2019 07:39:39 PM [facility] Value Range Interpretation Code Description Data Amarilis rce(s) Supporting Document(s) aPTT in Platelet poor plasma by Coagulation assay 33.4 s 24.0-34. 0 [facility] ID Date Data Source [id number] 05/31/2019 07:47:27 PM [facility] Value Range Interpretation Code Description Data Amarilis rce(s) Supporting Document(s) Albumin [Mass/volume] in Serum or Plasma by Bromocresol green (BCG) dye binding method 3.0 g/dL 3.5-5.2 L [facility] Bilirubin.total [Mass/volume] in Serum or Plasma 0.2 mg/dL <1.2 [facility] Bilirubin.direct [Mass/volume] in Serum or Plasma <0.3 [facility] Alkaline phosphatase [Enzymatic activity/volume] in Serum or Plasma 77 U/L 40-129 [facility] Aspartate aminotransferase [Enzymatic activity/volume] in Se rum or Plasma 9 U/L <40 [facility] Alanine aminotransferase [Enzymatic activity/volume] in Seru m or Plasma 10 U/L <41 [facility] Protein [Mass/volume] in Serum or Plasma 6.1 g/dL 6.4-8.3 L [facility] ID Date Data Source [id number] 05/31/2019 07:47:27 PM [facility] Name Value Range Interpretation Code Description Data Amarilis rce(s) Supporting Document(s) Bicarbonate [Moles/volume] in Serum 26 mmol/L 22-29 [facility] Chloride [Moles/volume] in Serum or Plasma 98 mmol/L 98-107 [facility] Creatinine [Mass/volume] in Serum or Plasma 0.59 mg/dL 0.70-1.20 L [facility] Glucose [Mass/volume] in Serum or Plasma 88 mg/dL 70-140 [facility] Potassium [Moles/volume] in Serum or Plasma 4.0 mmol/L 3.4-5.1 [facility] Sodium [Moles/volume] in Serum or Plasma 137 mmol/L 136-145 [facility] Urea nitrogen [Mass/volume] in Serum or Plasma 10 mg/dL 6-20 [facility] Anion gap 3 in Serum or Plasma 13 mmol/L 8-15 [facility] Osmolality of Serum or Plasma by calculation 282 mosm/kg 275-300 [facility] Creatinine/Urea nitrogen [Mass Ratio] in Serum or Plasma 17 [facility] Calcium [Mass/volume] in Serum or Plasma 8.6 mg/dL 8.6-10.0 [facility] Glomerular filtration rate/1.73 sq M pre dicted among non-blacks [Volume Rate/Area] in Serum or Plasma by Creatinine-based formula (MDRD) >6 0 [facility] Glomerular filtration rate/1.73 sq M pre dicted among blacks [Volume Rate/Area] in Serum or Plasma by Creatinine-based formula (MDRD) >60 [facility] ID Date Data Source [id number] 05/31/2019 07:43:23 PM [facility] Name Value Range Interpretation Code Description Data Amarilis rce(s) Supporting Document(s) ABO and Rh group [Type] in Blood [facility] Blood group antibody screen [Presence] in Serum or Plasma [facility] Blood bank comment [facility] Procedure Social History Code Duration Value Status Description Data Source(s ) Smoking 06/07/2020 02:13:00 PM EST Daily Smoker completed Daily S moker [facility] Alcohol intake 06/01/2019 12:00:00 AM EST Lifetime non-drinker (finding) completed Lifetime non-drinker (finding) [facility] ital Cigarette pack-years 06/01/2019 12:00:00 AM EST UNK [facility] Cigarettes smoked current (pack per day) - Reported 06/01/19 12:00:00 AM EST UNK [facility] Smoking 06/01/2019 12:00:00 AM EST Heavy tobacco smoker comple bryn Heavy tobacco smoker [facility] Vital Signs ID Date Data Source UNK Name Value Range Interpretation Code Description Data Source(s) Deprecated Oxygen saturation in Capillary blood by Oximetry 98 % Normal (applies to non-numeric results) 98 % [facility] Body temperature 37.6 jana Normal (applies to non-numeric results) 37.6 jana [facility] Respiratory rate 20 min Normal (applies to non-numeric results) 20 min [facility] Heart rate 95 min Normal (applies to non-numeric resul ts) 95 min [facility] Diastolic blood pressure 87 mm[Hg] Normal (applies to non-numeric results) 87 mm[Hg] [facility] Systolic blood pressure 128 mm[Hg] Normal (applies t o non-numeric results) 128 mm[Hg] [facility] Body height 174.3456 cm Normal (applies to non-numeric res ults) 174.3456 cm [facility] Body weight Measured 60.2 kg Normal (applies to non-num ayden results) 60.2 kg [facility] Body mass index (BMI) [Ratio] 19.60 kg/m2 No rmal (applies to non-numeric results) 19.60 kg/m2 [facility] Body mass index (BMI) [Ratio] 20.7 kg/m2 [...] [Ratio] 20.1 kg/m2 20.1 k g/m2 REBEKAH ([facility]) Body height 69 [in_i] 69 [in_i] REBEKAH ([facility]) Diastolic blood pressure 73 mm[Hg] 73 mm[Hg] REBEKAH ([facility]) Body weight 2182.4 [oz_av] 2182.4 [oz_av] ATHEN A ([facility]) Systolic blood pressure 109 mm[Hg] 109 mm[Hg] A [facility] ([facility]) Body weight 2192 [oz_av] 2192 [oz_av] REBEKAH ([facility]) Systolic blood pressure 107 mm[Hg] 107 mm[Hg] A [facility] ([facility]) Body mass index (BMI) [Ratio] 20.2 kg/m2 20.2 k g/m2 REBEKAH ([facility]) Body height 69 [in_i] 69 [in_i] REBEKAH ([facility]) Diastolic blood pressure 60 mm[Hg] 60 mm[Hg] REBEKAH ([facility]) Body weight 2192 [oz_av] 2192 [oz_av] REBEKAH ([facility]) Systolic blood pressure 107 mm[Hg] 107 mm[Hg] A [facility] ([facility]) Body mass index (BMI) [Ratio] 20.2 kg/m2 20.2 k g/m2 REBEKAH ([facility]) Body height 69 [in_i] 69 [in_i] REBEKAH ([facility]) Diastolic blood pressure 60 mm[Hg] 60 mm[Hg] REBEKAH ([facility]) Body surface area Derived from formula 1.76 m2 1.76 m2 [facility] ([facility]) Body weight 62.313 kg 62.313 kg [facility] ([facility]) [place] body weight 160 [lb_av] 160 [lb_av] MEDEN T ([facility]) Body mass index (BMI) [Ratio] 20.3 kg/m2 20.3 k g/m2 [facility] ([facility]) Body weight 137.38 [lb_av] 137.38 [lb_av] MEDEN T ([facility]) Body height 69 [in_i] 69 [in_i] [facility] ([facility]) 5'9" Diastolic blood pressure 69 mm[Hg] 69 mm[Hg] [facility] ([facility]) Systolic blood pressure 106 mm[Hg] 106 mm[Hg] [facility] ([facility]) Body weight 2144 [oz_av] 2144 [oz_av] REBEKAH ([facility]) Body mass index (BMI) [Ratio] 19.8 kg/m2 19.8 k g/m2 REBEKAH ([facility]) Body height 69 [in_i] 69 [in_i] [place] ([facility]) Body weight 2144 [oz_av] 2144 [oz_av] REBEKAH ([facility]) Body mass index (BMI) [Ratio] 19.8 kg/m2 19.8 k g/m2 REBEKAH ([facility]) Body height 69 [in_i] 69 [in_i] REBEKAH ([facility]) Body weight 2144 [oz_av] 2144 [oz_av] REBEKAH ([facility]) Body mass index (BMI) [Ratio] 19.8 kg/m2 19.8 k g/m2 REBEKAH ([facility]) Body height 69 [in_i] 69 [in_i] REBEKAH ([facility]) Body weight 2144 [oz_av] 2144 [oz_av] REBEKAH ([facility]) Body weight 2144 [oz_av] 2144 [oz_av] REBEKAH ([facility]) Systolic blood pressure 130 mm[Hg] 130 mm[Hg] A [facility] ([facility]) Body mass index (BMI) [Ratio] 19.8 kg/m2 19.8 k g/m2 REBEKAH ([facility]) Body height 69 [in_i] 69 [in_i] REBEKAH ([facility]) Diastolic blood pressure 101 mm[Hg] 101 mm[Hg] REBEKAH ([facility]) Body weight 2144 [oz_av] 2144 [oz_av] REBEKAH ([facility]) Systolic blood pressure 130 mm[Hg] 130 mm[Hg] A [facility] ([facility]) Body mass index (BMI) [Ratio] 19.8 kg/m2 19.8 k g/m2 REBEKAH ([facility]) Body height 69 [in_i] 69 [in_i] REBEKAH ([facility]) Diastolic blood pressure 101 mm[Hg] 101 mm[Hg] REBEKAH ([facility]) Systolic blood pressure 130 mm[Hg] 130 mm[Hg] A [facility] ([facility]) Body mass index (BMI) [Ratio] 19.8 kg/m2 19.8 k g/m2 REBEKAH ([facility]) Body height 69 [in_i] 69 [in_i] REBEKAH ([facility]) Diastolic blood pressure 101 mm[Hg] 101 mm[Hg] REBEKAH ([facility]) Body weight 2144 [oz_av] 2144 [oz_av] REBEKAH ([facility]) Systolic blood pressure 130 mm[Hg] 130 mm[Hg] A [facility] ([facility]) Body mass index (BMI) [Ratio] 19.8 kg/m2 19.8 k g/m2 REBEKAH ([facility]) Body height 69 [in_i] 69 [in_i] REBEKAH ([facility]) Diastolic blood pressure 101 mm[Hg] 101 mm[Hg] REBEKAH ([facility]) Body surface area Derived from formula 1.72 m2 1.72 m2 MEDENT ([facility]) Body weight 59.138 kg 59.138 kg MEDENT ([facility]) [place] body weight 160 [lb_av] 160 [lb_av] MEDEN T ([facility]) Body mass index (BMI) [Ratio] 19.3 kg/m2 19.3 k g/m2 [facility] ([facility]) Body weight 130.38 [lb_av] 130.38 [lb_av] [facility] Body height 69 [in_i] 69 [in_i] [facility] ([facility], ) 5'9" Diastolic blood pressure 81 mm[Hg] 81 mm[Hg] [facility] ([facility]) Systolic blood pressure 126 mm[Hg] 126 mm[Hg] M JUSTIN ([facility], ) Body weight 2048 [oz_av] 2048 [oz_av] REBEKAH ([facility]) Systolic blood pressure 116 mm[Hg] 116 mm[Hg] A [facility] ([facility]) Body height 69 [in_i] 69 [in_i] REBEKAH ([facility]) Diastolic blood pressure 80 mm[Hg] 80 mm[Hg] REBEKAH ([facility]) Body weight 8 [oz_av] 2048 [oz_av] RE[facility] ([facility]) Systolic blood pressure 116 mm[Hg] 116 mm[Hg] A [facility] ([facility]) Body height 69 [in_i] 69 [in_i] REBEKAH ([facility]) Diastolic blood pressure 80 mm[Hg] 80 mm[Hg] REBEKAH ([facility]) Body weight 2048 [oz_av] 2048 [oz_av] [facility] ([facility]) Systolic blood pressure 116 mm[Hg] 116 mm[Hg] A [facility] ([facility]) Body height 69 [in_i] 69 [in_i] REBEKAH ([facility]) Diastolic blood pressure 80 mm[Hg] 80 mm[Hg] REBEKAH ([facility]) Body weight 2048 [oz_av] 2048 [oz_av] [facility] ([facility]) Systolic blood pressure 116 mm[Hg] 116 mm[Hg] A [facility] ([facility]) Body height 69 [in_i] 69 [in_i] REBEKAH ([facility]) Diastolic blood pressure 80 mm[Hg] 80 mm[Hg] REBEKAH ([facility]) Body surface area Derived from formula 1.73 m2 1.73 m2 [facility] ([facility], ) Body weight 59.478 kg 59.478 kg [facility] ([facility]) [place] body weight 160 [lb_av] 160 [[facility]_av] [facility] Body mass index (BMI) [Ratio] 19.4 kg/m2 19.4 k g/m2 [facility] ([facility]) Body weight 131.12 [lb_av] 131.12 [lb_av] [facility], [facility] Body height 69 [in_i] 69 [in_i] [facility] ([facility]) 5'9" Diastolic blood pressure 80 mm[Hg] 80 mm[Hg] [facility] ([facility]) Systolic blood pressure 118 mm[Hg] 118 mm[Hg] [facility]) Body weight 2144 [oz_av] 2144 [oz_av] RE[facility] ([facility]) Systolic blood pressure 126 mm[Hg] 126 mm[Hg] A [facility] ([facility]) Body height 69 [in_i] 69 [in_i] REBEKAH ([facility]) Diastolic blood pressure 88 mm[Hg] 88 mm[Hg] REBEKAH ([facility]) Body weight 2144 [oz_av] 2144 [oz_av] [facility] ([facility]) Systolic blood pressure 126 mm[Hg] 126 mm[Hg] A [facility] ([facility]) Body height 69 [in_i] 69 [in_i] REBEKAH ([facility]) Diastolic blood pressure 88 mm[Hg] 88 mm[Hg] RE[facility] ([facility]) Body weight 2144 [oz_av] 2144 [oz_av] [facility] ([facility]) Body weight 2144 [oz_av] 2144 [oz_av] [facility] ([facility]) Systolic blood pressure 126 mm[Hg] 126 mm[Hg] [facility]) Body height 69 [in_i] 69 [in_i] REBEKAH ([facility]) Diastolic blood pressure 88 mm[Hg] 88 mm[Hg] REBEKAH ([facility]) Systolic blood pressure 126 mm[Hg] 126 mm[Hg] A THENA ([facility]) Body height 69 [in_i] 69 [in_i] REBE[facility] ([facility]) Diastolic blood pressure 88 mm[Hg] 88 mm[Hg] REBE[facility] ([facility]) Body weight 2144 [oz_av] 2144 [oz_av] [facility] ([facility]) Systolic blood pressure 105 mm[Hg] 105 mm[Hg] [facility]) Body height 69 [in_i] 69 [in_i] RE[facility] ([facility]) Diastolic blood pressure 73 mm[Hg] 73 mm[Hg] [facility] ([facility]) Body weight 2144 [oz_av] 2144 [oz_av] [facility] ([facility]) Systolic blood pressure 105 mm[Hg] 105 mm[Hg] [facility]) Body height 69 [in_i] 69 [in_i] RE[facility] ([facility]) Diastolic blood pressure 73 mm[Hg] 73 mm[Hg] [facility] ([facility]) Body weight 2144 [oz_av] 2144 [oz_av] [facility] ([facility]) Systolic blood pressure 105 mm[Hg] 105 mm[Hg] A THENA ([facility]) Body height 69 [in_i] 69 [in_i] [facility]AH ([facility]) Diastolic blood pressure 73 mm[Hg] 73 mm[Hg] [facility] ([facility]) Body weight 2144 [oz_av] 2144 [oz_av] [facility] ([facility]) Systolic blood pressure 105 mm[Hg] 105 mm[Hg] [facility]) Body height 69 [in_i] 69 [in_i] REBEKAH ([facility]) Diastolic blood pressure 73 mm[Hg] 73 mm[Hg] REBE[facility] ([facility]) Systolic blood pressure 119 mm[Hg] 119 mm[Hg] A THENA ([facility]) Body height 69 [in_i] 69 [in_i] [facility]KAH ([facility]) Diastolic blood pressure 84 mm[Hg] 84 mm[Hg] REBEKAH ([facility]) Systolic blood pressure 119 mm[Hg] 119 mm[Hg] A THENA ([facility]) Body height 69 [in_i] 69 [in_i] REBEKAH ([facility]) Diastolic blood pressure 84 mm[Hg] 84 mm[Hg] REBE[facility]AH ([facility]) Systolic blood pressure 119 mm[Hg] 119 mm[Hg] [facility]) Body height 69 [in_i] 69 [in_i] REBEKAH ([facility]) Diastolic blood pressure 84 mm[Hg] 84 mm[Hg] REBEKAH ([facility]) Systolic blood pressure 119 mm[Hg] 119 mm[Hg] A THENA ([facility]) Body height 69 [in_i] 69 [in_i] REBEKAH ([facility]) Diastolic blood pressure 84 mm[Hg] 84 mm[Hg] REBEAKH ([facility]) Body weight 2144 [oz_av] 2144 [oz_av] [facility] ([facility]) Systolic blood pressure 109 mm[Hg] 109 mm[Hg] [facility]) Body height 69 [in_i] 69 [in_i] REBEKAH ([facility]) Diastolic blood pressure 80 mm[Hg] 80 mm[Hg] REBEKAH ([facility]) Body weight 2144 [oz_av] 2144 [oz_av] [facility]AH ([facility]) Systolic blood pressure 109 mm[Hg] 109 mm[Hg] A THENA ([facility]) Body height 69 [in_i] 69 [in_i] REBEKAH ([facility]) Diastolic blood pressure 80 mm[Hg] 80 mm[Hg] REBEKAH ([facility]) Body weight 2144 [oz_av] 2144 [oz_av] [facility]AH ([facility]) Systolic blood pressure 109 mm[Hg] 109 mm[Hg] A THENA ([facility]) Body height 69 [in_i] 69 [in_i] REBEKAH ([facility]) Diastolic blood pressure 80 mm[Hg] 80 mm[Hg] REBEKAH ([facility]) Body weight 2144 [oz_av] 2144 [oz_av] [facility]AH ([facility]) Systolic blood pressure 109 mm[Hg] 109 mm[Hg] A THENA ([facility]) Body height 69 [in_i] 69 [in_i] REBEKAH ([facility]) Diastolic blood pressure 80 mm[Hg] 80 mm[Hg] REBEKAH ([facility]) Body weight 57.380 kg 57.380 kg [facility] ([facility], ) Body mass index (BMI) [Ratio] 18.7 kg/m2 18.7 k g/m2 [facility] ([facility], ) Body weight 126.50 [lb_av] 126.50 [lb_av] MEDEN T ([facility], ) Body height 69 [in_i] 69 [in_i] [facility] ([facility], ) 5'9" Body temperature 96.9 [degF] 96.9 [degF] [facility] ([facility], ) Diastolic blood pressure 62 mm[Hg] 62 mm[Hg] MEDENT ([facility], ) Systolic blood pressure 110 mm[Hg] 110 mm[Hg] M JUSTIN ([facility], ) Body weight 1984 [oz_av] 1984 [oz_av] REBEKAH ([facility]) Systolic blood pressure 115 mm[Hg] 115 mm[Hg] A THENA ([facility]) Body height 69 [in_i] 69 [in_i] REBEKAH ([facility]) Diastolic blood pressure 72 mm[Hg] 72 mm[Hg] REBEKAH ([facility]) Body weight 1983 [oz_av] 1984 [oz_av] RE[facility]AH ([facility]) Systolic blood pressure 115 mm[Hg] 115 mm[Hg] A THENA ([facility]) Body height 69 [in_i] 69 [in_i] REBEKAH ([facility]) Diastolic blood pressure 72 mm[Hg] 72 mm[Hg] REBEKAH ([facility]) Body weight 1983 [oz_av] 1983 [oz_av] RE[facility]KAH ([facility]) Systolic blood pressure 115 mm[Hg] 115 mm[Hg] A THENA ([facility]) Body height 69 [in_i] 69 [in_i] REBEKAH ([facility]) Diastolic blood pressure 72 mm[Hg] 72 mm[Hg] REBEKAH ([facility]) Body weight 1983 [oz_av] 1983 [oz_av] RE[facility]AH ([facility]) Systolic blood pressure 115 mm[Hg] 115 mm[Hg] [facility]) Body height 69 [in_i] 69 [in_i] REBEKAH ([facility]) Diastolic blood pressure 72 mm[Hg] 72 mm[Hg] REBEKAH ([facility]) Body weight 1868.8 [oz_av] 1868.8 [oz_av] ATHEN A ([facility]) Systolic blood pressure 109 mm[Hg] 109 mm[Hg] [facility]) Body height 69 [in_i] 69 [in_i] REBEKAH ([facility]) Diastolic blood pressure 76 mm[Hg] 76 mm[Hg] REBEKAH ([facility]) Body weight 1868.8 [oz_av] 1868.8 [oz_av] ATHEN A ([facility]) Systolic blood pressure 109 mm[Hg] 109 mm[Hg] A THENA ([facility]) Body height 69 [in_i] 69 [in_i] REBEKAH ([facility]) Diastolic blood pressure 76 mm[Hg] 76 mm[Hg] REBEKAH ([facility]) Body weight 1868.8 [oz_av] 1868.8 [oz_av] ATHEN A ([facility]) Systolic blood pressure 109 mm[Hg] 109 mm[Hg] [facility]) Body height 69 [in_i] 69 [in_i] REBEKAH ([facility]) Diastolic blood pressure 76 mm[Hg] 76 mm[Hg] REBEKAH ([facility]) Body weight 1868.8 [oz_av] 1868.8 [oz_av] ATHEN A ([facility]) Systolic blood pressure 109 mm[Hg] 109 mm[Hg] Hermila ANGELES ([facility]) Body height 69 [in_i] 69 [in_i] REBEKAH ([facility]) Diastolic blood pressure 76 mm[Hg] 76 mm[Hg] REBEKAH ([facility]) Body weight 52.277 kg 52.277 kg [facility] ([facility], ) Body mass index (BMI) [Ratio] 17.0 kg/m2 17.0 k g/m2 [facility] ([facility], ) Body weight 115.25 [lb_av] 115.25 [lb_av] NAUNRHIANNON T ([facility], ) Body height 69 [in_i] 69 [in_i] [facility] ([facility], ) 5'9" Diastolic blood pressure 62 mm[Hg] 62 mm[Hg] [facility] ([facility]) Systolic blood pressure 100 mm[Hg] 100 mm[Hg] M EDGAY ([facility]) ID Date Data Source [id number] 06/05/2019 10:35:59 AM [facility] Name Value Range Interpretation Code Description Data Source(s) WEIGHT RECORDED 289.91 lb 289.91 lb [facility] Body height Measured 72 in 72 in [facility] Patient Treatment Plan of Care Planned Activity Planned Date Details Description Data Source (s) 24 HR Nicotine 0.583 MG/HR Transdermal Patch 06/02/2019 09:00:00 AM [facility] sodium chloride (preservative free) 0.9 % flush 3 mL 020 01:00:00 AM [facility] Tetrahydrocannabinol 5 MG Oral Capsule REBEKAH ([facility]) Tetrahydrocannabinol 5 MG Oral Capsule REBEKAH ([facility]) Tetrahydrocannabinol 5 MG Oral Capsule REBEKAH ([facility]) Tetrahydrocannabinol 5 MG Oral Capsule REBEKAH ([facility])
--- NOTE | 2020-06-22 07:21 | ED PDOC ---
Post-Departure Follow-Up radiology faxed to bonnie miranda Sarah MD Jun 22, 2020 07:21
== END 2020-06-21 16:10 | disposition left against medical advice (07) ==
LOC: M ED 15:44
DX: Z53.21 Procedure and treatment not carried out due to patient leaving prior to being seen by health care provider (principal)

== ENCOUNTER 2020-06-25 22:35 | Emergency (ER) | payer OTHER ==
[~2020-06-25] VITALS: Ht 175.3 cm; Wt 55.9 kg
--- OUTSIDE RECORDS SUMMARY | 2020-06-25 22:40 | CCD ---
Author Author [facility] Organization [facility] Address Unknown Phone Unavailable Care Team Providers Care Senior Capital Markets Specialist Name Role Phone Sissy Crain JR, MD [...] MD Unavailable Unavailable Paras JR J Laron SAAVEDRA [...] Laron Unavailable Unavailable Paras JR, J Laron SAAVEDRA Unavailable Unavailable Paras JR, J Laron Unavailable Unavailable Paras JR, J Laron Unavailable Unavailable Paras JR, J Laron Unavailable Unavailable Paras JR J Laron SAAVEDRA Unavailable Unavailable Paras JR J Laron SAAVEDRA Unavailable Unavailable Paras JR J Laron Unavailable Unavailable Paras JR, J Laron Unavailable Unavailable Paras JR J Laron Unavailable Unavailable Paras JR, J Laron Unavailable Unavailable Paras JR, J Laron SAAVEDRA Unavailable Unavailable Paras JR J Laron Unavailable Unavailable Paras JR J Laron Unavailable Unavailable Paras JR, J Laron Unavailable Unavailable Paras JR J Laron SAAVEDRA Unavailable Unavailable Paras JR J Laron SAAVEDRA Unavailable Unavailable Paras JR J Laron Unavailable Unavailable Paras JR J Laron SAAVEDRA Unavailable Unavailable Paras JR J Laron Unavailable Unavailable Paras JR J Laron SAAVEDRA Unavailable Unavailable Mathieu Henderson MD Unavailable Unavailable [...] Unavailable Unavailable Mathieu Henderson MD Unavailable Unavailable aMthieu Henderson MD Unavailable Unavailable Mathieu Henderson MD [...] Unavailable Mathieu Henderson MD Unavailable Unavailable Mathieu eHnderson MD Unavailable Unavailable Mathieu Henderson MD Unavailable [...] Unavailable Idalia Henderson MD Unavailable Unavailable Idalia Hnederson MD Unavailable Unavailable Idalia Henderson MD Unavailable [...] Unavailable Unavailable Idalia Henderson MD Unavailable Unavailable SYSTEM IN, NOT IN PROVIDER Unavailable Unavailable Dione MÁRQUEZ MD Unavailable Unavailable Dione MÁRQUEZ MD Unavailable Unavailable Dione MÁRQUEZ MD Unavailable Unavailable Dione MÁRQUEZ MD Unavailable Unavailable Dione MÁRQUEZ MD Unavailable Unavailable Dione MÁRQUEZ MD Unavailable Unavailable YULISA, K CHARLINE SAAVEDRA Unavailable Unavailable YULISA, K CHARLINE MD Unavailable Unavailable YULISA, K CHARLINE MD Unavailable Unavailable YULISA, K CHARLINE MD Unavailable Unavailable YULISA, K CHARLINE MD Unavailable Unavailable YULISA, K CHRALINE MD Unavailable Unavailable YULISA, K CHARLINE MD Unavailable Unavailable YULISA, K CHARLINE MD Unavailable Unavailable Re-disclosure Warning The records [...] is protected by Article 27-F of the [facility] Public Health law. If you continue you may have access to information: Regarding HIV / AIDS; Provided by facilities licensed or operated by the [facility] Office of Mental Health; or Provided by the [facility] Office for People With Developmental Disabilities. If such information is present, then the following [facility] mandated warning applies: This information has [...] law may result in a fine or retirement sentence or both. A general authorization for the release of medical or other information is NOT sufficient authorization for further disc losure. Allergies and Adverse Reactions Type Description Substance Reaction Status Data Source(s ) Drug Class NO KNOWN ALLERGIES NO KNOWN ALLERGIES [facility] Encounters Encounter Providers Location Date Indications Data Source(s ) Inpatient Attender: Sherry Henderson MD 06/11/2020 07:52:11 AM [facility] Inpatient Attender: Sherry Henderson MDAdmitter: Sherry butt MD 06/11/2020 05:13:00 AM EST - 06/16/2020 12:02:00 PM EST ILEOSTOMY STATUS, COLOSTOMY STATUS & HX COLON CARCINOMA Z85. [facility] ILEOSTOMY STATUS, COLOSTOMY STATUS & HX COLON CARCINOMA Z85. Patient discharged. ( in Healthcare facility) Attender: Sherry Henderson MDAdmitter: Sherry Henderson MDConsultant: Daniel Henderson MD 06/11/2020 05:13:00 AM ES T [facility] Outpatient Attender: Sherry Henderson MD 06/07/2020 02:21:03 PM EST [facility] [place] [facility] Outpatient Attender: Sherry Henderson MD 06/07/2020 01 :49:00 PM EST URGENT OPEN TAKEDOWN OF ILEOSTOMY, TAKEDOWN COLOSTOMY AND LO [facility] URGENT OPEN TAKEDOWN OF ILEOSTOMY, TAKED OWN COLOSTOMY AND LO Outpatient Attender: Sherry Henderson MD [place] 05/31/2020 01:45:00 PM EST [facility] ([facility]) Daniel Henderson MD: [address] [place] [phone], Ph. Attender: Daniel Henderson MD [facility] Medical 05/25/2020 12:00:00 AM EST [place] ([facility]) Daniel Henderson MD: [address] [place] [address] [phone], Ph. Attender: Daniel Henderson MD [facility] Medical 04/27/2020 12:00:00 AM EST [place] ([facility]) Daniel Henderson MD: [address] [place] [address] [phone], Ph. Attender: Daniel Henderson MD [facility] Medical 04/27/2020 12:00:00 AM EST [place] ([facility]) Daniel Henderson MD: [address] [place] [address] [phone], Ph. Attender: Daniel Henderson MD [facility] Medical 03/29/2020 12:00:00 AM EST [place] ([facility]) Daniel Henderson MD: [address] [place] [phone], Ph. Attender: Daniel Henderson MD [facility] Medical 03/29/2020 12:00:00 AM EST [place] ([facility]) Daniel Henderson MD: [address] [place] [phone], Ph. Attender: Daniel Henderson MD [facility] Medical 03/29/2020 12:00:00 AM EST [place] ([facility]) Daniel Henderson MD: [address] [place] [phone], Ph. Attender: Daniel Henderson MD [facility] Medical 03/01/2020 12:00:00 AM EDT [place] ([facility]) Daniel Henderson MD: [address] [place] [phone], Ph. Attender: Daniel Henderson MD [facility] Medical 03/01/2020 12:00:00 AM EDT [place] ([facility]) Daniel Henderson MD: [address] [place] [phone], Ph. Attender: Daniel Henderson MD [facility] Medical 03/01/2020 12:00:00 AM EDT [place] ([facility]) Daniel Henderson MD: [address] [place] [phone], Ph. Attender: Daniel Henderson MD [facility] Medical 03/01/2020 12:00:00 AM EDT [place] ([facility]) Outpatient Attender: Daniel Henderson MD 02/24/2020 01:27:00 PM EDT [facility] Outpatient Attender: Laron Colindres/Cam/Herbert/Horacio dl 02/16/2020 08:40:00 AM EDT [facility] ([facility]) Outpatient Attender: Daniel Henderson MD FP 02/03/2020 10:32:01 AM EDT [facility] Outpatient Attender: Daniel Henderson MD FP 02/02/2020 10:53:02 AM EDT [facility] Outpatient Attender: Daniel Henderson MD FP 01/10/2020 11:45:01 AM EDT [facility] Outpatient Attender: Daniel Henderson MD FP 01/05/2020 10:04:01 AM EDT [facility] Outpatient Attender: Daniel Henderson MD FP 12/31/2019 09:52:02 AM EDT [facility] Outpatient Attender: Daniel Henderson MD FP 12/31/2019 09:23:00 AM EDT [facility] Outpatient Attender: Daniel Henderson MD FP 12/17/2019 12:02:28 AM EDT [facility] Outpatient Attender: Daniel Henderson MD FP 12/16/2019 09:35:00 AM EDT [facility] Outpatient Attender: Laron Colindres/Cam/Herbert/Horacio dl 11/26/2019 08:50:00 AM EDT [facility] ([facility]) Outpatient Attender: Daniel Henderson MD FP 11/24/2019 11:27:01 AM EDT [facility] Outpatient Attender: Daniel Henderson MD FP 11/24/2019 10:19:01 AM EDT [facility] Outpatient Attender: Daniel Henderson MD FP 11/22/2019 12:02:25 AM EDT [facility] Outpatient Attender: Daniel Henderson MD FP 11/21/2019 02:23:01 PM EDT [facility] Outpatient Attender: Daniel Henderson MD FP 11/19/2019 01:48:01 PM EDT [facility] Outpatient Attender: Daniel Henderson MD FP 11/19/2019 11:49:01 AM EDT [facility] Outpatient Attender: Daniel Henderson MD FP 11/17/2019 01:34:00 PM EDT [facility] Outpatient Attender: Daniel Henderson MD FP 11/10/2019 11:59:00 AM EDT [facility] Outpatient Attender: Daniel Henderson MD FP 11/05/2019 11:10:01 AM EDT [facility] Outpatient Attender: Daniel Henderson MD FP 10/28/2019 03:30:03 PM EDT [facility] Outpatient Attender: Daniel Henderson MD FP 10/24/2019 12:02:28 AM EDT [facility] Outpatient Attender: Daniel Henderson MD FP 10/23/2019 05:00:01 PM EDT [facility] Outpatient Attender: Daniel Henderson MD FP 10/23/2019 11:49:01 AM EDT [facility] Outpatient Attender: Daniel Henderson MD FP 10/22/2019 12:02:22 AM EDT [facility] Outpatient Attender: Daniel Henderson MD FP 10/21/2019 02:40:01 PM EDT [facility] Outpatient Attender: Daniel Henderson MD FP 10/21/2019 02:39:02 PM EDT [facility] Outpatient Attender: Daniel Henderson MD FP 10/21/2019 01:40:00 PM EDT [facility] Outpatient Attender: Daniel Henderson MD FP 10/21/2019 10:12:00 AM EDT [facility] Outpatient Attender: Saundra Oneill MD FP 10/14/2019 07:58:37 PM E DT [facility] Outpatient Attender: Saundra Oneill MD FP 09/23/2019 02:52:01 PM E DT [facility] Outpatient Attender: Saundra Oneill MD FP 09/23/2019 02:51:00 PM E [facility] Outpatient Attender: Saundra Oneill MD FP 09/22/2019 09:43:00 AM E DT [facility] Outpatient 09/16/2019 06:22:00 AM EDT [facility] Outpatient Attender: GIO SIMS MD FP 09/08/2019 10:20:00 A M EDT [facility] Outpatient Attender: GIO SIMS MD FP 09/04/2019 02:27:01 P M EDT [facility] Outpatient Attender: GIO SIMS MD FP 08/27/2019 10:25:01 A M EDT [facility] Outpatient 08/15/2019 06:14:00 AM EDT [facility] Outpatient Attender: GIO SIMS MD FP 07/30/2019 01:25:00 P M EDT [facility] Outpatient Attender: GIO SIMS MD FP 07/25/2019 03:37:00 P M EDT [facility] Outpatient Attender: GIO SIMS MD FP 07/17/2019 03:10:04 P M EDT [facility] Outpatient Attender: GIO SIMS MD FP 07/17/2019 03:10:04 P M EDT [facility] Outpatient Attender: GIO SIMS MD FP 07/17/2019 03:09:03 P M [facility] Outpatient Attender: GIO SIMS MD FP 07/11/2019 09:42:00 A [facility] Outpatient 07/03/2019 12:31:00 PM [facility] Outpatient Attender: GIO SIMS MD FP 07/03/2019 10:19:02 A [facility] Outpatient 07/01/2019 09:47:00 AM EST [facility] [address] [phone] 06/30/2019 12:00:00 AM EST eCW1 ([facility]) Outpatient 06/26/2019 02:25:00 PM EST [facility] Outpatient 06/25/2019 01:31:00 PM [facility] Outpatient Attender: GIO SIMS MD FP 06/20/2019 10:38:00 A [facility] Outpatient Attender: GIO SIMS MD FP 06/18/2019 10:04:05 A [facility] Outpatient Attender: GIO SIMS MD FP 06/18/2019 08:44:00 A [facility] Outpatient 06/17/2019 02:34:00 PM [facility] Outpatient Attender: GIO SIMS MD FP 06/16/2019 04:08:00 P [facility] Outpatient Attender: GIO SIMS MD FP 06/16/2019 09:21:00 A [facility] Outpatient 06/02/2019 12:47:00 PM [facility] Outpatient Attender: GIO SIMS MD FP 06/02/2019 11:00:04 A [facility] Outpatient Attender: GRIS HOBBS MDReferrer: GRIS HOBBS MD 06/01/2019 12:00:00 AM [facility] Inpatient Attender: GRIS Guzman r: CHARLINE MÁRQUEZ MDAdmitter: GRIS HOBBS MDReferrer: PROVIDER SYSTEM IN -05/31/2019 12:00:00 AM EST - 06/02/2019 12:00:00 AM [facility] Peritoneal abscess Patient discharged. Outpatient Attender: GIO SIMS MD 05/27/2019 01:59:00 P [facility] Outpatient Attender: GIO SIMS MD 05/27/2019 01:56:00 P [facility] Outpatient Attender: GIO SIMS MD 05/27/2019 01:55:02 P [facility] Outpatient Attender: GIO SIMS MD 05/27/2019 01:55:01 P [facility] Outpatient Attender: GIO SIMS MD 05/27/2019 10:13:00 A [facility] Outpatient Attender: GIO SIMS MD 05/12/2019 01:13:02 P [facility] Outpatient Attender: GIO SIMS MD 05/12/2019 11:47:01 A [facility] Outpatient Attender: GIO SIMS MD 05/09/2019 12:01:00 P [facility] Outpatient Attender: GIO SIMS MD 05/09/2019 11:52:01 A [facility] Outpatient Attender: GIO SIMS MD 05/09/2019 09:38:01 A [facility] Outpatient Attender: GIO SIMS MD 05/09/2019 09:20:01 A [facility] Outpatient Attender: GIO SIMS MD 05/08/2019 01:16:01 P [facility] Outpatient Attender: GIO SIMS MD 05/02/2019 09:46:00 A [facility] Outpatient Attender: GIO SIMS MD 05/02/2019 09:45:02 A [facility] Outpatient Attender: GIO SIMS MD 04/28/2019 02:53:02 P [facility] Medications Medication Brand Name Start Date Product [...] on Sun06/02/19 at 0900, For 30 days [facility] Medication administered onsite sodium chloride (preservative free) 0.9 % flush 3 mL 06/02/2019 01:00:00 AM EST 3 mL Intravenous active [Ord er 1 Start] Name: Peripheral IV Signed Summary: Routine, CONTINUOUS, Starting 06/01/19 at 2025, Until Sun07/01/19, For 30 [...] 3 mL, Intravenous, PRN, Line Care, Starting 06/01/19 at 2024, For 30 days
Saline Lock. Flush Q8H and after each use to Saline Lock.
[Order 3 End] [Order 4 Start] Name: Saline Lock order Signed Summary: Routine, ONCE, 06/01/19 at 2025, For 1 occurrence [Order 4 End] [Order 5 Start] Name: NaCl infusion 0.9 % Signed Summary: at 0.2-10 mL/hr, Intravenous, PRN, For Meds, Starting 06/01/19 at 2024, For 30 days [Order 5 End] [Order 6 Start] Name: dextrose 5 % infusion Signed Summary: at 0.2-10 mL/hr, Intravenous, PRN, For Meds, Starting [place] 06/01/19 at 2024, For 30 days [Order 6 End] [facility] Medication administered onsite gabapentin 100 MG Oral Capsule gabapentin (NEURONTIN) capsule 100 mg gabapentin (NEURONTIN) capsule 100 mg 06/01/2019 05:00:00 PM EST 100 mg Oral active 100 mg, Oral, Three Times D aily Standard, First dose on 06/01/19 at 1700, For 30 days [facility] Medication administered onsite Ibuprofen 200 MG Oral Tablet ibuprofen (ADVIL,MOTRIN) tablet 400 mg ibuprofen (ADVIL,MOTRIN) tablet 400 mg 06/01/2019 01:45:00 PM EST 400 mg Oral active 400 mg, Oral, Every 6 hours, First dose on 06/01/19 at 1345, For 30 days
Take with food.
[facility] Medication administered onsite lidocaine (XYLOCAINE) 2 % injection 4443-8199-99 06/01/2019 12:57:00 PM EST completed Code/Trauma Medicati on, Starting 06/01/19 at 1257 [facility] Medication administered onsite fentaNYL (SUBLIMAZE) (PF) injection 4663-0924-37 06/01/2019 12:55:00 PM EST completed Code/Trauma Medicati on, Starting 06/01/19 at 1255 [facility] Medication administered onsite Buprenorphine 8 MG / Naloxone 2 MG Subli ngual Tablet buprenorphine-naloxone (SUBOXONE) 8-2 MG per sublingual tablet 1 tablet buprenorphine-naloxone (SUBOXONE) 8-2 MG per sublingual tablet 1 tablet 06/01/2019 09:00:00 AM EST Sublingual active 1 tablet (8 mg of buprenorphine), Sublingual, Daily Standard, First dose on 06/01/19 at 0900, For 3 days [facility] Medication administered onsite ondansetron (ZOFRAN) injection 4 mg 15590-413-81 06/01/2019 04:11:5 9 AM EST 4 mg Intravenous active 4 mg, In travenous, Every 8 hours PRN, Nausea, Vomiting, Starting 06/01/19 at 0411, For 30 days [facility] Medication administered onsite 1 ML Ketorolac Tromethamine 30 MG/ML Car tridge ketorolac (TORADOL) injection 15 mg ketorolac (TORADOL) injection 15 mg 06/01/2019 01:15:00 AM EST 15 mg Intravenous completed 15 mg, Intrav enous, Once, 06/01/19 at 0115, For 1 dose [facility] Medication administered onsite NaCl infusion 0.9 % [id number] 06/01/2019 12:30:00 AM EST Intravenous active at 100 mL/hr, Intrav enous, Continuous, Starting 06/01/19 at 0030, For 30 days [facility] Medication administered onsite Ceftriaxone 1000 MG Injection cefTRIAXone (ROCEPHIN) i nfusion 1 g (premix) cefTRIAXone (ROCEPHIN) infusion 1 g (premix) 06/01/2019 12:15:40 AM EST 1 g Intravenous active 1 g, Intraven ous, at 100 mL/hr, Every 24 hours, First dose on 06/01/19 at 0030, For 7 days
Discouraged Uses: Empiric treatment of post-surgical meningitis (ceftazidime preferred)
[facility] Medication administered onsite Metronidazole 5 MG/ML Injectable Solution metroNIDAZOL E (FLAGYL) IVPB 500 mg metroNIDAZOLE (FLAGYL) IVPB 500 mg 06/01/2019 12:15:40 AM EST 50 0 mg Intravenous active 500 mg, Intra venous, Administer over 60 Minutes, Every 8 hours, First dose on 06/01/19 at 0030, For 7 days [facility] Medication administered onsite iohexol (OMNIPAQUE) 300 MG/ML contrast injection 100 mL 1775 0605/31/2019 11:15:00 PM EST 100 mL Given by IV completed 100 mL, Given by IV, 1 TIME IMAGING, 05/31/19 at 2315, For 1 dose [facility] Medication administered onsite Acetaminophen 325 MG Oral Tablet acetaminophen (TYLENO L) tablet 650 mg acetaminophen (TYLENOL) tablet 650 mg 05/31/2019 08:30:00 PM EST 65 0 mg Oral active 650 mg, Oral, E very 6 hours, First dose on 05/31/19 at 2030, For 30 days
Maximum daily dose of acetaminophen is 3,000 mg from all sources in 24 hours.
[facility] Medication administered onsite 1 ML Ketorolac Tromethamine 30 MG/ML Car tridge ketorolac (TORADOL) injection 15 mg ketorolac (TORADOL) injection 15 mg 05/31/2019 08:30:00 PM EST 15 mg Intravenous completed 15 mg, Intrav enous, Once, 05/31/19 at 2030, For 1 dose [facility] Medication administered onsite morphine sulfate (PF) injection 4 mg [id number] 05/31/2019 08:00: 00 PM EST 4 mg Intravenous completed 4 mg, In travenous, Once, 05/31/19 at 2000, For 1 dose [facility] Medication administered onsite Piperacillin 3000 MG / tazobactam 375 MG Injection piperacillin-tazobactam (ZOSYN) IVPB 3.375 g (premix) piperacillin-tazobactam (ZOSYN) IVPB 3.3 75 g (premix) 05/31/2019 07:00:00 PM EST 3.375 g Intravenous com pleted 3.375 g, Intravenous, Administer over 0.5 Hours, Once, 05/31/19 at 1900, For 1 dose [facility] Medication administered onsite Tetrahydrocannabinol 5 MG Oral Capsule dronabinol 5 mg capsule dronabinol 5 mg capsule completed dronabinol 5 M G Oral Capsule [place] [facility]) Tetrahydrocannabinol 5 MG Oral Capsule dronabinol 5 mg capsule dronabinol 5 mg capsule completed dronabinol 5 M G Oral Capsule [facility] Tetrahydrocannabinol 5 MG Oral Capsule dronabinol 5 mg capsule dronabinol 5 mg capsule completed dronabinol 5 M G Oral Capsule [place] ([facility]) Tetrahydrocannabinol 5 MG Oral Capsule dronabinol 5 mg capsule dronabinol 5 mg capsule completed dronabinol 5 M G Oral Capsule [place] ([facility]) Insurance Providers Payer name Policy type / Coverage type Policy ID Covered democrat ID Covered democrat's relationship to murillo Policy [place] Plan Information [facility] COMMUNITY PLAN [facility] [id number] SP [id number] MEDICAID GME [id number] S [id number] [facility] [id number] S [id number] [facility] [id number] SELF PAY ONLY [id number] SP [id number] SELF PAY ONLY [id number] SP [id number] [facility] COMMUNITY PLAN [facility] [id number] SP [id number] [facility] COMMUNITY PLAN [facility] [id number] SP [id number] Managed Care [facility] Community Plan P [id number] S [id number] Medicaid S [id number] S [id number] Managed Care - [facility] Community Plan P [id number] S [id number] [facility] I [id number] Self [id number] [facility] O [id number] S [id number] Managed Care - [facility] Community Plan P [id number] S [id number] [facility] COMMUNITY PLAN [facility] [id number] SP [id number] MEDICAID [id number] SP [id number] Managed Care - [facility] Community Plan P [id number] S [id number] ANSI-Medicaid [id number] ANSI-Medicaid [id number] ANSI-Medicaid [id number] ANSI-Medicaid [id number] MEDICAID M [id number] S [id number] UNAVAILABLE UNAVAILA BLE SELF PAY UNAVAILABLE SP UNAVAILA BLE SELF PAY ONLY UNAVAILABLE UNAV AILABLE MEDICAID [id number] SP [id number] Problems, Conditions, and Diagnoses Code Display Name Description Problem Type Effective Dates Data Source(s) V70.0 Encounter for general adult medical exam ination with abnormal findings Encounter for general adult medical examination with abnormal findings 10/21/2019 02:38:37 PM EDT [facility] [id number] Procedure by method Procedure by Method Problem 0 10/21/2019 12:00:00 AM EDT [place] ([facility] er) [id number] Procedure by method Procedure by Method Problem 0 10/21/2019 12:00:00 AM EDT [place] ([facility] er) [id number] Procedure by method Procedure by Method Problem 0 10/21/2019 12:00:00 AM EDT [place] ([facility] er) [id number] Procedure by method Procedure by Method Problem 0 10/21/2019 12:00:00 AM EDT [place] ([facility] er) C18.2 Malignant neoplasm of ascending colon Ma lignant neoplasm of ascending colon 07/17/2019 03:08:27 PM EDT [facility] Z93.3 Colostomy status H/O: colostomy 07/17/2019 03:0 8:27 PM EDT [facility] [id number] Colostomy present Colostomy Present Problem 07/16 12:00:00 AM EDT [place] ([facility]) [id number] Malignant tumor of ascending colon Malignant Rafita or of Ascending Colon Problem 07/17/2019 12:00:00 AM EDT [place] ([facility]) [id number] Colostomy present Colostomy Present Problem 07/16 12:00:00 AM EDT [place] ([facility]) [id number] Malignant tumor of ascending colon Malignant Rafita or of Ascending Colon Problem 07/17/2019 12:00:00 AM EDT [place] ([facility]) [id number] Colostomy present Colostomy Present Problem 07/16 12:00:00 AM EDT [place] ([facility] er) [id number] Malignant tumor of ascending colon Malignant Rafita or of Ascending Colon Problem 07/17/2019 12:00:00 AM EDT [place] ([facility]) [id number] Colostomy present Colostomy Present Problem 07/16 12:00:00 AM EDT [place] ([facility]) [id number] Malignant tumor of ascending colon Malignant Rafita or of Ascending Colon Problem 07/17/2019 12:00:00 AM EDT [place] ([facility]) K65.1 Peritoneal abscess Peritoneal abscess Diagnosis 08:19:05 PM [facility] left ileo psoas abscess and free air left ileo p soas abscess and free air Diagnosis 05/31/2019 06:13:27 PM [facility] Surgeries/Procedures Procedure Description Date Indications Data Source(s) Colonoscopy Thru Stoma Remove Tumor/Polyp/Lesion Snare Techn ique 03/25/2020 12:00:00 AM [facility]IE [facility] ([facility], ) RADIOLOGY REPORT RADIOLOGY REPORT 06/01/2019 1:23 PM EST 06/01/2019 06:23:47 PM [facility] IR IMAGE GUIDED NEEDLE DRAIN PROCEDURE IR IMAGE GUIDED NEED LE DRAIN PROCEDURE STAT 06/01/2019 1:10 PM EST 06/01/2019 06:10:00 PM [facility] BLOOD COUNT COMPLETE AUTOMATED CBC Routine 06/01/2019 5:59 A M EST 06/01/2019 10:59:00 AM [facility] PHOSPHORUS INORGANIC PHOSPHORUS LEVEL Routine 06/01/2019 5:[address] 06/01/2019 10:59:00 AM [facility] MAGNESIUM MAGNESIUM LEVEL Routine 06/01/2019 5:59 AM EST 06/01/2019 10:59:00 AM [facility] BASIC METABOLIC PANEL CALCIUM TOTAL BASIC METABOLIC PANEL Routi ne 06/01/2019 5:59 AM EST 06/01/2019 10:59:00 AM [facility] CT ABDOEN & PELVIS W/CONTRAST MATERIAL CT ABDOMEN PELVIS WI TH CONTRAST [id number] STAT 06/01/2019 12:16 AM EST 06/01/2019 05:16:56 AM [facility] BASIC METABOLIC PANEL CALCIUM IONIZED POCT ISTAT CHEM8 Routine 05/31/2019 7:11 PM EST 06/01/2019 12:11:00 AM [facility] BLOOD GASES ANY COMBINATION PH PCO2 PO2 CO2 HCO3 POCT ISTAT VBG /LAC Routine 05/31/2019 7:07 PM EST 06/01/2019 12:07:00 AM [facility] THROMBOPLASTIN TIME PARTIAL PLASMA/WHOLE BLOOD PARTIA L THROMBOPLASTIN TIME (PTT) STAT 05/31/2019 7:00 PM EST 06/01/2019 12:00 :00 AM [facility] PROTHROMBIN TIME PROTIME INR STAT 05/31/2019 7:00 PM EST 06/01/2019 12:00:00 AM [facility] BLOOD COUNT COMPLETE AUTO&AUTO DIFRNTL WBC COUNT CBC AND DIFFER ENTIAL STAT 05/31/2019 7:00 PM EST 06/01/2019 12:00:00 AM [facility] BLOOD TYPING ABO TYPE AND SCREEN STAT 05/31/2019 7:00 PM EST 06/01/2019 12:00:00 AM [facility] HEPATIC FUNCTION PANEL HEPATIC FUNCTION PANEL A STAT 0 7:00 PM EST 06/01/2019 12:00:00 AM [facility] BASIC METABOLIC PANEL CALCIUM TOTAL BASIC METABOLIC PANEL STAT 05/31/2019 7:00 PM EST 06/01/2019 12:00:00 AM [facility] EKG ED PHYSICIAN INTERPRETATION EKG ED PHYSICIAN INTERPRETATION Routine 05/31/2019 6:32 PM EST 05/31/2019 11:32:46 PM [facility] EKG 12-LEAD - CMAXX REPORT EKG 12-LEAD - CMAXX REPORT 05/31/2019 6:23 PM EST 05/31/2019 11:23:11 PM [facility] EKG 12-LEAD - CMAXX REPORT EKG 12-LEAD - CMAXX REPORT 05/31/2019 6:23 PM EST 05/31/2019 11:23:11 PM [facility] EKG 12-LEAD EKG 12-LEAD STAT 05/31/2019 6:23 PM EST 05/31/2019 11:23:11 PM [facility] EKG 12-LEAD - CMAXX REPORT EKG 12-LEAD - CMAXX REPORT 05/31/2019 6:23 PM EST 05/31/2019 11:23:00 PM [facility] Results ID Date Data Source [id number] 06/15/2020 04:13:54 PM EST [facility] Name Value Range Interpretation Code Description Data Amarilis rce(s) Supporting Document(s) WBC 9.6 10*3/uL (4.1-11.0) [facility] [place] RBC 2.54 10*6/uL (4.60-6.10) L [facility] HGB 8.2 g/dL (13.5-18.0) L [facility] HCT 24.0 % (41.0-53.0) L [facility] PATIENT TRANSFUSED MCV 94.5 fL (80.0-95.0) [facility] MCH 32.4 pg (27.0-32.0) H [facility] MCHC 34.3 g/dL (32.0-36.0) [facility] RDW 14.8 % (10.5-14.5) H [facility] PLT 260 10*3/uL (150-450) [facility] MPV 6.8 fL (7.1-10.7) L [facility] ID Date Data Source [id number] 06/15/2020 04:28:53 PM EST [facility] CLERICAL CHECK CLERICAL CHEC K OKPRE RXN SPEC DEBORAH NORMALPOST RXN SPEC DEBORAH NORMALTRANSFUSION REACTION SEE SEPARATE TRANSFUSION REACTION REPORT FOR PAT HOLOGIST INTERPRETATION.TESTING SITE PERFORMED AT [address] [place], [place] [address]PATIENT ABO/Rh O POSITIVEDAT, C3 SPECIFIC NEGATIVEPOST RX NAHID NEGATIVE Name Value Range Interpretation Code Description Data Amarilis rce(s) Supporting Document(s) ID Date Data Source [id number] 06/16/2020 02:07:29 AM EST [facility] [place] PATIENT ABO/Rh O POSITIVEANT IBODY SCREEN NEGATIVESPEC EXP DATE 06/18/2020TESTING SITE PERFORMED AT [address] [address]BLOOD BANK COMMENT BLOOD TYPE CONFIRMED.UNIT NUMBER [id number] COMPONENT TYPE LEUKOPOOR RED CELLSUNIT DIVISION 00STATUS OF UNIT TRANSFUSEDTRANSFUSION STATUS OK TO TRANSFUSECROSSMATCH RESULT COMPATIBLE Name Value Range Interpretation Code Description Data Amarilis rce(s) Supporting Document(s) TYPE AND CROSSMATCH [facility] [place] PATIENT ABO/Rh O POSITIVE ID Date Data Source [id number] 06/15/2020 07:26:44 AM EST [facility] [place] Name Value Range Interpretation Code Description Data Amarilis rce(s) Supporting Document(s) WBC 9.7 10*3/uL (4.1-11.0) [facility] [place] RBC 2.00 10*6/uL (4.60-6.10) L [facility] HGB 6.7 g/dL (13.5-18.0) LL [facility] RESULT(S) CALLED TO AND READ BACK BYNAZ ALONSO ON 5S AT 0725 ON 06/15/20 [place] [address] HCT 19.3 % (41.0-53.0) LL [facility] MCV 96.7 fL (80.0-95.0) H [facility] MCH 33.3 pg (27.0-32.0) H [facility] MCHC 34.5 g/dL (32.0-36.0) [facility] RDW 13.7 % (10.5-14.5) [facility] PLT 259 10*3/uL (150-450) [facility] MPV 6.9 fL (7.1-10.7) L [facility] ID Date Data Source [id number] 06/14/2020 07:43:25 AM EST [facility] Name Value Range Interpretation Code Description Data Amarilis rce(s) Supporting Document(s) SODIUM 140 mmol/L (136-145) [facility] POTASSIUM 3.7 mmol/L (3.6-5.2) [facility] CHLORIDE 106 mmol/L (100-108) [facility] CO2 25 mmol/L (22-31) [facility] ANION GAP 9 mmol/L (7-16) [facility] UREA NITROGEN 10 mg/dL (7-24) [facility] CREATININE 0.60 mg/dL (0.80-1.30) L [facility] BUN/CREAT RATIO 16.7 RATIO (10.0-20.0) [facility] GLUCOSE 89 mg/dL (70-99) [facility] CALCIUM 7.8 mg/dL (8.4-10.2) L [facility] GFR >60 ml/min/1.73m2 (>59) [facility] GFR ( AMER) >60 ml/min/1.73m2 (>59) [facility] GFR INTERPRETATION [facility] --NORMAL KIDNEY FUNCTION OR MILD DISEASE - GFR >OR= 60CHRONIC KIDNEY DISEASE - GFR 15 - 59RENAL FAILURE - GFR <15 Est. GFR calculation based on the MDRDstudy equation, which assumes a steadystate for creatinine. Est. GFR should notbe used for medication dosing. ID Date Data Source [id number] 06/14/2020 07:22:07 AM EST [facility] Name Value Range Interpretation Code Description Data Amarilis rce(s) Supporting Document(s) WBC 11.6 10*3/uL (4.1-11.0) H [facility] RBC 2.20 10*6/uL (4.60-6.10) L [facility] HGB 7.1 g/dL (13.5-18.0) L [facility] HCT 21.5 % (41.0-53.0) L [facility] MCV 97.4 fL (80.0-95.0) H [facility] MCH 32.4 pg (27.0-32.0) H [facility] MCHC 33.2 g/dL (32.0-36.0) [facility] RDW 13.6 % (10.5-14.5) [facility] PLT 217 10*3/uL (150-450) [facility] MPV 7.0 fL (7.1-10.7) L [facility] ID Date Data Source [id number] 06/13/2020 07:58:24 AM EST [facility] Name Value Range Interpretation Code Description Data Amarilis rce(s) Supporting Document(s) SODIUM 142 mmol/L (136-145) [facility] POTASSIUM 4.1 mmol/L (3.6-5.2) [facility] CHLORIDE 108 mmol/L (100-108) [facility] CO2 25 mmol/L (22-31) [facility] ANION GAP 9 mmol/L (7-16) [facility] UREA NITROGEN 12 mg/dL (7-24) [facility] CREATININE 0.57 mg/dL (0.80-1.30) L [facility] BUN/CREAT RATIO 21.1 RATIO (10.0-20.0) H [facility] GLUCOSE 82 mg/dL (70-99) [facility] CALCIUM 7.8 mg/dL (8.4-10.2) L [facility] GFR >60 ml/min/1.73m2 (>59) [facility] GFR ( AMER) >60 ml/min/1.73m2 (>59) [facility] GFR INTERPRETATION [facility] --NORMAL KIDNEY FUNCTION OR MILD DISEASE - GFR >OR= 60CHRONIC KIDNEY DISEASE - GFR 15 - 59RENAL FAILURE - GFR <15 Est. GFR calculation based on the MDRDstudy equation, which assumes a steadystate for creatinine. Est. GFR should notbe used for medication dosing. ID Date Data Source [id number] 06/13/2020 07:39:09 AM EST [facility] Name Value Range Interpretation Code Description Data Amarilis rce(s) Supporting Document(s) WBC 13.2 10*3/uL (4.1-11.0) H [facility] RBC 2.15 10*6/uL (4.60-6.10) L [facility] HGB 7.1 g/dL (13.5-18.0) L [facility] HCT 21.2 % (41.0-53.0) L [facility] MCV 98.5 fL (80.0-95.0) H [facility] MCH 33.0 pg (27.0-32.0) H [facility] MCHC 33.5 g/dL (32.0-36.0) [facility] RDW 13.9 % (10.5-14.5) [facility] PLT 170 10*3/uL (150-450) [facility] MPV 7.4 fL (7.1-10.7) [facility] ID Date Data Source [id number] 06/12/2020 08:20:25 AM EST [facility] Name Value Range Interpretation Code Description Data Amarilis rce(s) Supporting Document(s) SODIUM 141 mmol/L (136-145) [facility] POTASSIUM 4.2 mmol/L (3.6-5.2) [facility] CHLORIDE 108 mmol/L (100-108) [facility] CO2 27 mmol/L (22-31) [facility] ANION GAP 6 mmol/L (7-16) L [facility] UREA NITROGEN 15 mg/dL (7-24) [facility] CREATININE 0.91 mg/dL (0.80-1.30) [facility] BUN/CREAT RATIO 16.5 RATIO (10.0-20.0) [facility] GLUCOSE 98 mg/dL (70-99) [facility] CALCIUM 7.5 mg/dL (8.4-10.2) L [facility] GFR >60 ml/min/1.73m2 (>59) [facility] GFR ( AMER) >60 ml/min/1.73m2 (>59) [facility] GFR INTERPRETATION [facility] --NORMAL KIDNEY FUNCTION OR MILD DISEASE - GFR >OR= 60CHRONIC KIDNEY DISEASE - GFR 15 - 59RENAL FAILURE - GFR <15 Est. GFR calculation based on the MDRDstudy equation, which assumes a steadystate for creatinine. Est. GFR should notbe used for medication dosing. ID Date Data Source [id number] 06/12/2020 08:20:25 AM EST [facility] [place] Name Value Range Interpretation Code Description Data Amarilis rce(s) Supporting Document(s) PHOSPHORUS 3.3 mg/dL (2.5-4.5) [facility] [place] ID Date Data Source [id number] 06/12/2020 08:20:25 AM EST [facility] [place] Name Value Range Interpretation Code Description Data Amarilis rce(s) Supporting Document(s) MAGNESIUM 1.7 mg/dL (1.7-2.4) [facility] [place] ID Date Data Source [id number] 06/12/2020 07:50:13 AM EST [facility] [place] Name Value Range Interpretation Code Description Data Amarilis rce(s) Supporting Document(s) WBC 14.0 10*3/uL (4.1-11.0) H [facility] RBC 2.82 10*6/uL (4.60-6.10) L [facility] HGB 9.5 g/dL (13.5-18.0) L [facility] HCT 27.7 % (41.0-53.0) L [facility] MCV 98.4 fL (80.0-95.0) H [facility] MCH 33.6 pg (27.0-32.0) H [facility] MCHC 34.2 g/dL (32.0-36.0) [facility] RDW 13.6 % (10.5-14.5) [facility] PLT 191 10*3/uL (150-450) [facility] MPV 7.7 fL (7.1-10.7) [facility] ID Date Data Source [id number] 06/19/2020 01:00:46 AM EST [facility] [place], [place] [address]Tel# SURGICAL PATHOLOGY REPORTPatient Name:EVERTON STEPHENSON:1975Received:06/11/2020ccession #:[id number](s) [...] is submitted for microscopic examination. (1 block) jglkas/sgbReported: 06/19/2020Electronically Signed Out By Gali White D.O. jzwPathology Associates of South CanaanBradley[address] [place], [place] [address]Technical component performed at [facility], Histopathology, [address] [place] [address], [address].Reported at [facility], [address] [place] [address], Formerly [facility].This report may include immunohistochemical or in-situ hybridizationresults. Testing was developed and the performance characteristicsdetermined by [facility], as required byCLIA '88. The FDA has determined that approval for specific use is notnecessary for clinical use. The quality of Hematoxylin and Eosin stainsand as applicable, for all immunohistochemical and/or special stains,including positive and negative controls, were reviewed and consideredappropriate.ICD codes: Z85.036TCX4 codes: A: 68919ED: 49378SM: 23014UB: 55563YH: 92914IJ: 18301L Name Value Range Interpretation Code Description Data Amarilis rce(s) Supporting Document(s) ID Date Data Source [id number] 06/14/2020 04:05:00 PM [place], [place] [address]PATIENT NAME: EVERTON STEPHENSONDATE OF : 1975REPORT: OPERATIONPATIENT NUMBER: [id number] STATUS: IPMEDICAL RECORD NUMBER: [id number] OF ADMISSION: 1DATE OF DISCHARGE:ROOM: 01DATE OF [...] We then went to try to do brqee-jr-dxc anastomosis, but the circular stapler could not be passed fromthe anus all the way to the end adequately or even fine enough to do nvquf-sp-eqsb. Therefore, we cleansed the Anyi's pouch once [...] BEATRIZ Nassarictated: 06/11/2020 11:58DT: 06/11/2020 14:00Job #: [id number]: Abisai AlvarengaNOTE: [facility] computer generated reports are not confirmed orauthenticated unless they are signed by the providerElectronically Authenticated and Edited by:SHERRY HENDERSON MD On 06/14/2020 04:05 PM EST Name Value Range Interpretation Code Description Data Amarilis rce(s) Supporting Document(s) ID Date Data Source [id number] 06/15/2020 05:19:50 AM EST [facility] SPEC EXP DATE 06/14/2020TEST ING SITE PERFORMED AT [address] [place] [address]RMBC NUMBER [id number] COMPONENT TYPE LEUKOPOOR RED CELLSUNIT DIVISION 00STATUS OF UNIT REL FROM ALLOCTRANSFUSION STATUS OK TO TRANSFUSECROSSMATCH RESULT COMPATIBLE Name Value Range Interpretation Code Description Data Amarilis rce(s) Supporting Document(s) ID Date Data Source [id number] 06/09/2020 12:00:00 AM EST [facility] Name Value Range Interpretation Code Description Data Amarilis rce(s) Supporting Document(s) SARS-CoV-2 (COVID-19) RNA [Presence] in Respiratory specimen by AGUSTIN with probe detection Not Detected [facility] This lab was ordered by [facility] and reported by [employer]. ID Date Data Source [id number] 06/07/2020 03:33:02 PM EST [facility] SPEC EXP DATE 1PATI ENT ABO/Rh O POSITIVEANTIBODY SCREEN NEGATIVETESTING SITE PERFORMED AT [address] [place] [address] Name Value Range Interpretation Code Description Data Amarilis rce(s) Supporting Document(s) TYPE AND SCREEN [facility] PATIENT ABO/Rh O POSITIVE ID Date Data Source [id number] 06/07/2020 02:39:11 PM EST [facility] Name Value Range Interpretation Code Description Data Amarilis rce(s) Supporting Document(s) SODIUM 142 mmol/L (136-145) [facility] POTASSIUM 4.4 mmol/L (3.6-5.2) [facility] CHLORIDE 106 mmol/L (100-108) [facility] CO2 30 mmol/L (22-31) [facility] ANION GAP 6 mmol/L (7-16) L [facility] UREA NITROGEN 12 mg/dL (7-24) [facility] CREATININE 0.86 mg/dL (0.80-1.30) [facility] BUN/CREAT RATIO 14.0 RATIO (10.0-20.0) [facility] GLUCOSE 92 mg/dL (70-99) [facility] CALCIUM 9.6 mg/dL (8.4-10.2) [facility] GFR >60 ml/min/1.73m2 (>59) [facility] GFR ( AMER) >60 ml/min/1.73m2 (>59) [facility] GFR INTERPRETATION [facility] --NORMAL KIDNEY FUNCTION OR MILD DISEASE - GFR >OR= 60CHRONIC KIDNEY DISEASE - GFR 15 - 59RENAL FAILURE - GFR <15 Est. GFR calculation based on the MDRDstudy equation, which assumes a steadystate for creatinine. Est. GFR should notbe used for medication dosing. ID Date Data Source [id number] 06/07/2020 02:21:02 PM EST [facility] [place] Name Value Range Interpretation Code Description Data Amarilis rce(s) Supporting Document(s) WBC 8.7 10*3/uL (4.1-11.0) [facility] [place] RBC 4.52 10*6/uL (4.60-6.10) L [facility] HGB 15.1 g/dL (13.5-18.0) [facility] HCT 44.0 % (41.0-53.0) [facility] [address] [facility] [place] [address] MCV 97.2 fL (80.0-95.0) H [facility] MCH 33.3 pg (27.0-32.0) H [facility] MCHC 34.3 g/dL (32.0-36.0) [facility] RDW 13.7 % (10.5-14.5) [facility] PLT 250 10*3/uL (150-450) [facility] MPV 6.7 fL (7.1-10.7) L [facility] ID Date Data Source [id number] 06/05/2020 12:00:00 AM EST [facility] Name Value Range Interpretation Code Description Data Amarilis rce(s) Supporting Document(s) SARS-CoV-2 (COVID-19) RNA [Presence] in Respiratory specimen by AGUSTIN with probe detection Not Detected [facility] This lab was ordered by [facility] and reported by [employer]. ID Date Data Source [id number] 05/03/2020 12:00:00 AM EST [facility] Name Value Range Interpretation Code Description Data Amarilis rce(s) Supporting Document(s) SARS-CoV-2 (COVID-19) RNA [Presence] in Respiratory specimen by AGUSTIN with probe detection [facility] This lab was ordered by [facility] and reported by [employer]. ID Date Data Source [id number] 04/28/2020 09:20:00 AM EST [place] ([facility]) Name Value Range Interpretation Code Description Data Amarilis rce(s) Supporting Document(s) barbiturates screen, blood negative cutoff:0.1 normal B arbiturates Screen, Blood [facility]) amphetamines screen, blood negative cutoff:50 normal Amphetami binu Screen, Blood [facility]) cannabinoid screen, blood ++positive++ cutoff:5 Abnorm al (applies to non-numeric results) Cannabinoid Screen, Blood [place] ([facility]) cocaine + metab. screen, blood negative cutoff:25 normal Cocaine + Metab. Screen, Blood [facility]) opiates screen, blood negative cutoff:5 normal Opiates Screen , Blood [facility]) benzodiazepines screen, blood negative cutoff:20 normal Benzodiazepines Screen, Blood [facility]) phencyclidine screen, blood negative cutoff:8 normal Phencyclidine Screen, Blood [place] ([facility]) oxycodone screen negative cutoff:5 normal Oxycodone Screen AT [facility]) cannabinoid confirmation positive . normal Cannabinoid Confirmation [facility]) tetrahydrocannabinol(THC) 19.8 NG/mL . normal tetrahydro cannabinol(THC) [facility]) carboxy-THC 42.2 NG/mL . normal Carboxy-thc [facility]) cannabinol negative . normal Cannabinol [facility]) hydroxy-THC 4.7 NG/mL . normal Hydroxy-thc [place] ([facility]) cannabidiol negative . normal Cannabidiol [facility] ([facility]) ID Date Data Source [id number] 03/25/2020 12:06:00 PM EST [place] ([facility], ) Name Value Range Interpretation Code Description Data Amarilis rce(s) Supporting Document(s) Surgical pathology study Laboratory test result [facility] ([facility], ) FINAL DIAGNOSIS Colon, polyp, polypectomy: Tubular adenoma. 03/26/2020 - 0 CLINICAL DIAGNOSIS Colon cancer 03/25/2020 - 152 GROSS DIAGNOSIS Received in formalin labeled "snare colon polyp" is one fragment of hennessy tissue, 0.3 x 0.3 x 0.2 cm. All in one. -SV 03/25/20201522 Signed ALYSIA QUINTANILLA MD 03/26/2020 1221 ID Date Data Source [id number] 03/20/2020 09:20:00 AM EST [facility] Name Value Range Interpretation Code Description Data Amarilis rce(s) Supporting Document(s) SARS coronavirus 2 RNA [facility] This lab was ordered by [facility] and reported by [facility]. ID Date Data Source [id number] 11/24/2019 10:27:38 AM EDT [facility] Measurements & CalculationsHeight: 69 inches (5 [...] (ER) or urgent care clinic? 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 He has asked his oncologist their [...] & Plan Problems:Assessed:Malignant neoplasm of ascending colon (WKV60-O18.2) Assessment: Instructions: Offered to extend disability for [...] ElectronicOrders:Adult - Ofc Vst, EST, Level III [CPT-02885] Medications:IBUPROFEN 800 MG ORAL TABLET (IBUPROFEN) One po q6h prn pain. MDD 4. #60[Tablet] x 0 Route:ORAL Entered and Authorized by: Daniel Henderson MD Method used: Electronically to [facility]* (retail) [address] [facility] [address] [place] [address] Note to Pharmacy: Route: ORAL; RxID: [id number] signed by Daniel Henderson MD on 11/24/2019 at 11:26 AM Name Value Range Interpretation Code Description Data Amarilis rce(s) Supporting Document(s) ID Date Data Source [id number] 10/21/2019 01:46:48 PM EDT [facility] Measurements & CalculationsHeight: 69 inches (5 [...] (ER) or urgent care clinic? 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 MDD 1. VERENA [id number] ICD10 F11.10 Qty: 30[Film] Refills: 0 Method: ElectronicAllergies:No Known Allergies (updated 11/27/2018) Orders:Other Lab [[id number]] Adult - Ofc Vst, EST, Level III [CPT-21468] Follow-Up Return to clinic: 1 month. for follow upMedications:SUBOXONE 8-2 MG SUBLINGUAL FILM (BUPRENORPHINE HCL-NALOXONE HCL) One film once daily. MDD 1. VERENA [id number] ICD10 F11.10 #30[F ilm] x 0 Entered and Authorized by: Daniel Henderson MD Method used: Electronically to [facility]* (retail) [address] [facility] [address] [place] [address] Fax: RxID: [id number] signed by Daniel Henderson MD on 10/21/2019 [...] rce(s) Supporting Document(s) ID Date Data Source [id number] 07/17/2019 02:51:10 PM EDT [facility] Measurements & CalculationsHeight: 69 inches 175.26 cm Weight: 116.8 pounds 53.09 kg Body Mass Index (BMI): 17.31BMI Interpretation: UnderweightBody Surface Area (BSA): 1.65Weight Management Education Done (Nutrition/Physical Activity)Vital SignsTemperature: 98.0F oral Pulse Rate: 113 beats/minuteRespiratory Rate: 20 respirations/minuteBlood Pressure: 109/76 left arm sitting automaticO2 Saturation: 98% room airVital Signs performed by: Vignesh Trevizo MA, July 17, 2019 2:58 PMInitial Intake Information from: [facility] #: 15Smoking, Tobacco, Vaping or Smoke Exposure [...] History: [facility] d/cHistory of Present Illness (HPI)IVignesh MA, am scribing for, and in the [...] & Plan Problems:Added: H/O: colostomy (ICD- V44.3) (CCJ37-R65.3)Malignant neoplasm of ascending colon (ICD10- C18.2)Assessment not SavedOpioid abuse with other opioid-induced disorder (ICD1 0-F11.188): ] Assess ment & Plan Orders:Adult - Ofc Vst, EST, Level III [[id number]] Name Value Range Interpretation Code Description Data Amarilis rce(s) Supporting Document(s) ID Date Data Source [id number] 06/03/2019 04:21:19 PM EST [facility] Name Value Range Interpretation Code Description Data Amarilis rce(s) Supporting Document(s) Discharge Summary [facility] ANZNLe3mTsVKFcSe52/SGFaaNUQmn3FoNDdfTMv7THrvPMVfU3RpAEI9pE8nBZN8SPuXImJyAwTqOES4 lbm [file] E+DQogICAgICAgICAgICAgICAgICAgICAgICAgICAgICAgICAgICAgICAgICAgICAgICAgICAgICAgIC AgICAgICAgICAgICAgICAgICAgICAgICAgICAgICAgICAgICAgICAgICAgDQogICAgICAgICAgICAgIC AgICAgICAgICAgICAgICAgICAgICAgICAgICAgICAg ICAgICAgICAgICAgICAgICAgICAgICAgICAgICAgICAgICAgICAgICAgICAgICAgICAgICAgDQogICAg ICAgICAgICAgICAgICAgICAgICAgICAgICAgICAgICAgICAgICAgICAgICAgICAgICAgICAgICAgICAg ICAgICAgICAgICAgICAgICAgICAgICAgICAgICAgIC AgICAgDQogICAgICAgICAgICAgICAgICAgICAgICAgICAgICAgICAgICAgICAgICAgICAgICAgICAgIC AgICAgICAgICAgICAgICAgICAgICAgICAgICAgICAgICAgICAgICAgICAgICAgDQogICAgICAgICAgIC AgICAgICAgICAgICAgICAgICAgICAgICAgICAgICAg ICAgICAgICAgICAgICAgICAgICAgICAgICAgICAgICAgICAgICAgICAgICAgICAgICAgICAgICAgDQog ICAgICAgICAgICAgICAgICAgICAgICAgICAgICAgICAgICAgICAgICAgICAgICAgICAgICAgICAgICAg ICAgICAgICAgICAgICAgICAgICAgICAgICAgICAgIC AgICAgICAgDQogICAgICAgICAgICAgICAgICAgICAgICAgICAgICAgICAgICAgICAgICAgICAgICAgIC AgICAgICAgICAgICAgICAgICAgICAgICAgICAgICAgICAgICAgICAgICAgICAgICAgDQogICAgICAgIC AgICAgICAgICAgICAgICAgICAgICAgICAgICAgICAg ICAgICAgICAgICAgICAgICAgICAgICAgICAgICAgICAgICAgICAgICAgICAgICAgICAgICAgICAgICAg DQogICAgICAgICAgICAgICAgICAgICAgICAgICAgICAgICAgICAgICAgICAgICAgICAgICAgICAgICAg ICAgICAgICAgICAgICAgICAgICAgICAgICAgICAgIC AgICAgICAgICAgDQogICAgICAgICAgICAgICAgICAgICAgICAgICAgICAgICAgICAgICAgICAgICAgIC HkBXEzPUYrGGArSOXyCLXnVLVpXPWgBHWxHIIfQLTrICFkSONtUQWxWTWsCLYfFUGnVHJrAOz5H7gdFE WjUJMsPC0dRTh3Gz2+IWmGTgMnSNU9vsNnsE2ZFT9b w4QdSWlcRAQkh3ZvLOj8UR8PEAAnNNbjBD7AAXaftc0FUTBbFHJuuPRIc7rrXdYlMZK1CKAmMchtIO6B WHZfJ2jwguQbCLNxMZOLLIpkSVHIKOedBDEKCIIgADHzOcCsEAmiYD0Nk1CnfPE9CBo+Mb8OLQ0ww8Nj RQdlBxBuMJ4mic3BLNqQSeSdD3FqhvQ1LGT7WIJjDa 9TOTDiLSHnqIIkMbQsEZVRRbBhQ2FjrV16UWECAb6+OBbidoEeLksBEgZ0VLTyh5YvJFy8CZ5MDLTjOX e3iAQuXZvxB0wfyuyzJOW5mS8nznbzZjdjYPdwYE8bEGPEhJzyFUM7BAZ4BNhcKMOtNRVuPR9lXx7fAP WxFTT7DbV7BRRGPD1FADQpXHCwvPLdAUUgKHAHGB6A WHleENW4QGOwqdDzmLYvTDtlJP9MGTAsjuRqOpLvCYIMCFb+Fk6TAE1pl9HtVWqyTVNjWC3ykw5KUAwG SuAsA4E1vNHhE5O6XEhbFh7JHFQzLSQcAaKkDPQWMGoyVB3CCI3euiM1TG4DbCBiYRWnXYPaeSQdTKm4 D49nmLSjLLdhPO1JXQJ+Naomy+Ur6TKFWkJGAaRKEkSg XePJMVMpYsW1PhI6LNy7HmF9CyTR37sZyzpdBvOPurXQ1XLK4gCDHvSCQHDG6AjBCbyA5kknMhUgTbMI QQEvGcV21duLSvQBWpUKB4RGRoDd5SCJFwM8GvxfZgaNpljaLiPUTaSJDBGB1DJMnuabIgsKXqfUpkWA 29mQtvUM2VVe5VGrNkOE7bev9DvCVjRy3QUNTwTD3D ADRqNADkSGMkNJX1DHFsXbSbIGadPIEuMCVrXQG8PXGhQDYgPQ5JRdHeMEBbQAm3NOOlNSBnFAXsko7O ZRBiAOLzLCOnRBZvGEOkGCRiUQunUAErHRGgYQQ4PBIkPFJgUK6YNdGxQVGdJHTaFVJdUOWkDCAtqp7I LXUfSHZkUCH9PQNrCVMsZAZuJIwkOGUuBZU5VXO6YZ QnOVDgYK3JIeRxHVXiTOpfTySiQJQkMBNhnf1MNLQqDLQpBOCrLUUsUSYvKYRxFMhiNMSjCQUgGJX7IJ EsVNEoDW5YGaEdAQYlHZJlVysfJULzPBXlyx1JTULxCRAjLbH0XHZzZFBrPCQvGMdzODYrQYY1VYQ7YX RoPSTeBP3GLpKjUUOmUIO1QNDrPMYvIWBbug0SCWXb JXGbGXu7NLGpURBoXGNjQMeyWBBiCTJ3VpC9QHUnCHEvLV4ZSnKkGDOuCBU0ZSCfZMBfUYEtpu4RJWEd HVYmNaIiRDSdEIIxNKSsUFriRNBsELU4ZAs4PHPbFOMxQF2SCaVcPRNyQFwjJFJlPTDgWIOwsg6TGYXm UYDnCmF5BPToQAVkNWOpIYfiUVRqAIV7XQY7HRPnGT WnMP6YAnVgKZFhVQf6UzfhXAAkTVCeed6XUMRtPLUyZUecUFMcBHKhRQFmTAjzIYUeWMS3XnK9BQMsNO RzSB7YUxGbNMGeEdB5JgHbAPBlEAJudi4VQLZaMLUeZKo3YlJbZKTgPYTySPynQFWsLZAgUOJ2EVUgMF NpJL5XYfTsIRazVKFWUws2BLfqL1t2LZOhVF4YL4Db a2KbLnlyTKUOYLgrSX7hgbHjKXEfYz3YN2nLWueqXnXfHYMrJRggOXH3GNHhK1EzBtL7UCisJIPkW1Zd KE4lQCXdEERrIRYsIOKwNdFxAXCfHxNsCrx3V6VjQTAmOrL3KaPsYJ7UFc3MWlN3VSP7zWDtEf2PKnQl ZAjNTdNrHL2AVBp= ID Date Data Source [id number] 06/02/2019 10:47:14 AM [facility] Name Value Range Interpretation Code Description Data Amarilis rce(s) Supporting Document(s) Consultation [facility] RUGHHd6pMzDCRwYs09/DHVyxFYNko4YoMTnoTPx3AVazCXXjG4WxGMH4hG3sFRD7MFpDHjVcMwByPMB6 lbm MzLmvJUmViYPMsKhiCWjOdQHvmCligtDQvPQ8FsDX8GAJfE15xUZIxFPDaE6TwXXUrSGx+Mi8OPSVfoP QlEG3FSoaU8Vlks1y7PF0yUQ7HBuedm70fbkxMFEE45PBHn91hVA4jPkSAlEcWKti6PLdURf507YPkrY hrlyjtvoUvqVY9O2X2gIePS9GhIxZ//6pBYoMgUMX/ 5rtVxzdgJh56B6qbiYKFi/DL0doSZQAFNIIL/ImNFnxdyzkmc8UGzuhzd9lbukrtrAI9pKG99Sl35QS6 pwFWDGBry4uTBhUSfa/86owmQSywmiD1/1eh4mne3fB1uzreVI5ExD4Sj8djuNJmibMtIkJoetNIvO7y YawhBxp5LgluftSsQQji9E1a0al0fB1egdEGrvlnR2 Upyz/iQbWKSsgeW2K1zv4OAyDK5aC5l2PIyUNRv8Yrv3/FnSzzmZ0Sd3bbvha1p0GhLvbrjGn+KAxn2Z 9lEQZxYbygToxqYm/XN7ongYHlQoSj6e3A9Du0my3Ul0NogtCwqI57Yh+aiIz3lurPmONvoRt/cSQ3Fc /tR0AWOzPGPIRJz4/isb2mKD1borevQ5oLQ6LktwjY wT16O4AiWerpBR4JWPlFhprN8ZzwnqttOKRUDR3b55kHh6HubeuAgdkRPJf4zcuFnxgCgKt8l13Dkuao hMwzTp2jDaxg0cPkSgA8PE2/tZi5AjlKRueBGu01/axJwA5C8bpxU9kBiM8cBl5DbSPpTC3xvKlUtQ1x U67A49X1lKg10eHafx1a5XA20uRZE8vQI8BM/Cd10Y [file] ICAgICAgICAgICAgICAgICAgICAgICAgICAgICAgICAgICAgICAgICAgICAgICAgICAgICAgICAgICAg ICAgICANCiAgICAgICAgICAgICAgICAgICAgICAgIC AgICAgICAgICAgICAgICAgICAgICAgICAgICAgICAgICAgICAgICAgICAgICAgICAgICAgICAgICAgIC AgICAgICAgICAgICAgICANCiAgICAgICAgICAgICAgICAgICAgICAgICAgICAgICAgICAgICAgICAgIC AgICAgICAgICAgICAgICAgICAgICAgICAgICAgICAg ICAgICAgICAgICAgICAgICAgICAgICAgICANCiAgICAgICAgICAgICAgICAgICAgICAgICAgICAgICAg ICAgICAgICAgICAgICAgICAgICAgICAgICAgICAgICAgICAgICAgICAgICAgICAgICAgICAgICAgICAg ICAgICAgICANCiAgICAgICAgICAgICAgICAgICAgIC AgICAgICAgICAgICAgICAgICAgICAgICAgICAgICAgICAgICAgICAgICAgICAgICAgICAgICAgICAgIC AgICAgICAgICAgICAgICAgICANCiAgICAgICAgICAgICAgICAgICAgICAgICAgICAgICAgICAgICAgIC AgICAgICAgICAgICAgICAgICAgICAgICAgICAgICAg ICAgICAgICAgICAgICAgICAgICAgICAgICAgICANCiAgICAgICAgICAgICAgICAgICAgICAgICAgICAg ICAgICAgICAgICAgICAgICAgICAgICAgICAgICAgICAgICAgICAgICAgICAgICAgICAgICAgICAgICAg ICAgICAgICAgICANCiAgICAgICAgICAgICAgICAgIC AgICAgICAgICAgICAgICAgICAgICAgICAgICAgICAgICAgICAgICAgICAgICAgICAgICAgICAgICAgIC AgICAgICAgICAgICAgICAgICAgICANCiAgICAgICAgICAgICAgICAgICAgICAgICAgICAgICAgICAgIC AgICAgICAgICAgICAgICAgICAgICAgICAgICAgICAg ICAgICAgICAgICAgICAgICAgICAgICAgICAgICAgICANCiAgICAgICAgICAgICAgICAgICAgICAgICAg ICAgICAgICAgICAgICAgICAgICAgICAgICAgICAgICAgICAgICAgICAgICAgICAgICAgICAgICAgICAg ICAgICAgICAgICAgICANCjw/cLWaM8cszSDyfjD3S1 ykSz4CPy2ZKE4zn8QkAANiIAmnkqXuMerQYmHtAOEsCtvCPxr1ANzpYZ2YsVVfH0QeV0UrNGmeLC2HFY QdCXOdkALpKHCoTCEnMuM6PUIdXZrxEE4EeCWrEKdmMGQbSPOeMqPpBHAzUM5IRMMgZ037qqFfYx4MMu 5KWaHdCQ2fip5SIMgvNLLvFfcUSzn2QVexNR5LyLMo qIFnGRDcHPRAKbFbR7zgo1DiKzQdLNKOIChfOA2Bt8OtcLTqSPf+Ew4HHX9xm4WlXEnyHOLdRV0vqw0Y BQhVBhUtN8AunIbyMYWxshX4yXLnYAC2IVH1LQIgWMCrXFHmtC4kybHnFE0JIbMsFHBmKR7bMk6eKEZm OII8KeI7DILRDR2WAQLbKYFehBZzZVQfJRICQH8BDK deJPV3KLLasjEewFBzNTugFB0ECWNbjrDmWTepNBOYSIr+Mo5PZH3oo6XdRXxoPQCcYA6xow9MRHwQQo XiW4M2lJDdX1W5TYlkPd9HRTIeDTPvIJdbJXXUNRoqCN0SRZ7prkE0GY4XgRZxPYSwOUVioBBfCKw5S0 9peLSvJKklKO5ZNKC+Naomy+Mr5WWVRwLSNhVBQwHoXb KNOLXqJiA9LyK8UKt1WpR3FfEX01uHtdebHqNGkfZL3NNV9dSJVsVXYYQW3ElHGbrI0teeNjCHGgXNJU VpXhS67zwKHsGKMgCZW8ITIaZo7TENFoF4BiukUbcJbdsdWaIRMtYGFORI8KREpcpqNtdADghRdlWH68 eKavRZ4MLv6GKwJmFR5hwc2VjBCnMx1GJBRpTc8QEH IlWHSsESAaHQB2ZXOyOpGnJDzaOGPyBQEvZHE1JURnSYBhLX2MGvUvJIMwKDP2ENuiWOClTCVnfi2AOY AzUQLoIfP6KBFiQPXgKMDwAYpyPYWoMYNnUTI5AVEpIMHtAV2RFgTqTLJgCKZoNSwkMTOzMUJndv4QBX OwZJGdFnY3XESvBGFuBLOlBJbpAEBlUFN3YmV7BCIu TFKcMN1OLxPrYLPvHAA8QRRzFQIoRWVtpc8ZHDRpEUNwLrQ1SPCaSXPfBVBeTVqxBPLpNHN4BrB2NVNk AGYbYG6FWrDwQGYbKZi4NIDjCBCpJJZdzz9KKYWqLKQiBJieWTWeUDQiTVCuNJemCOGsMLW9DWA8UIZn USQyAU9IEoNzHQNtSCeoLMFwYXVyESIaaa3FAXWuDD QhYFT3ZLUaZCLoTYPpBIjiDDPpJDYfRiVeTNLrBWYfTW6YTrEhNXXpLDO0UfOzPOIyMQKrjz6ZGKZbWY UdXJz1MSAvTALdSBCbPIhlCNVgGSQsQKGxGJMjTZMeDG8XMxWdKWFbWQJ5TjAbSONcECPgeb9CZTFeUQ QtOsOlNAKnPUYhXUAwTOb7nuZeqLWdZEz1QS0MU3Sl yjThZpIHSk0Pt337PWSgNARvZb4YQ8iiWm0fLAJeNPVYGh5QODf2D2ZpKnogKZOeIvJrQMA6AfE8XaEw DoPuQdd5GQU0TbB+PAn1SBJ6PMZ7OENpCYJ9RAjgWXLvEtGpMRIsEAwdZoLpIv4oRERLUt6+DQpzdGFy bCxlICOZQqEaACH1HIjiJHYEEe6Y ID Date Data Source [id number] 06/02/2019 10:11:53 AM EST [facility] Name Value Range Interpretation Code Description Data Amarilis rce(s) Supporting Document(s) ED Provider Note [facility] WHBCZk1tHfKJVsQl35/ITSjiDTAxn1LiXDcuRMg6TLgbBBIpT7OfBXP0mN5sNMX6OHfSSwAvEzTpLRV1 lbm [file] scales inspector+DACgrRFdWVIgYsxFieZk0tV4vmJHtiI46CI6lX [file] E3UGF8PGnnGMLEUr5G ID Date Data Source [id number] 06/02/2019 09:25:13 AM [facility] IR IMAGE GUIDED NEEDLE DRAIN PROCEDUREFI NAL RESULTInterpreted by:Gio Valles, MDProcedure: Ultrasound guided left pelvic abscess drainage.History: Few [...] injection with 2% lidocaine, for single step spjb-ydc-zgtzou technique placement of a 12 Cypriot resolve pigtail drainage catheter into this collection [...] and uncomplicated ultrasound-guided left pelvic abscess 12 Cypriot drain placement with sample sent.This document has been electronically signed by Gio Valles MD on 06/02/2019 9:22 AM Name Value Range Interpretation Code Description Data Amarilis rce(s) Supporting Document(s) ID Date Data Source [id number] 06/02/2019 08:38:17 AM [facility] Name Value Range Interpretation Code Description Data Amarilis rce(s) Supporting Document(s) [facility] LVAFKx7nHkCRCtYw73/ZASnxKJXlk5EsOYnbZLb3BMdzUYUpH1FkGVI3xS9vMHK8ZMeKFaZyWnYzCQJ1 lbm [file] szPWBXMcf4XUyJMmAuGZ8UMDj= ID Date Data Source [id number] 06/02/2019 09:54:50 AM [facility] Service Cmnt XXX-Imp : Gram Stn XXX : 2W BC'S Seen.2Gram-positive coccusin elydc0Shwt-davixbye bacillus (organism)Microorganism XXX Cult : 4Escherichia coli (organism)Organism of questionable significance. No further workup xh7Irjykcvmojogp anginosus Name Value Range Interpretation Code Description Data Amarilis rce(s) Supporting Document(s) ID Date Data Source [id number] 06/01/2019 06:20:06 AM [facility] Name Value Range Interpretation Code Description Data Amarilis rce(s) Supporting Document(s) Leukocytes [#/volume] in Blood by Automated count 13.7 10*3/uL 4-10 H [facility] Erythrocytes [#/volume] in Blood by Automated count 3.45 10*6/uL 4.6- 6.1 [facility] Hemoglobin [Mass/volume] in Blood 10.3 g/dL 13.5-18 L [facility] Hematocrit [Volume Fraction] of Blood by Automated count 30.6 % 4 1-53 [facility] Erythrocyte mean corpuscular volume [Entitic volume] by Auto mated count 88.8 fL 80-96 [facility] Erythrocyte mean corpuscular hemoglobin [Entitic mass] by Automated count 29.8 pg 27-33 [facility] Erythrocyte mean corpuscular hemoglobin concentration [Mass/volume] by Automated count 33.5 g/dL 32.0-[facility].0 [facility] width [Ratio] by Automated count 14.2 % 11.5-14.5 [facility] Platelets [#/volume] in Blood by Automated count 969 10*3/uL 150-400 H [facility] ID Date Data Source [id number] 06/01/2019 07:04:07 AM [facility] Name Value Range Interpretation Code Description Data Amarilis rce(s) Supporting Document(s) Bicarbonate [Moles/volume] in Serum 23 mmol/L 22-29 [facility] Chloride [Moles/volume] in Serum or Plasma 102 mmol/L 98-107 [facility] Creatinine [Mass/volume] in Serum or Plasma 0.60 mg/dL 0.70-1.20 [facility] Glucose [Mass/volume] in Serum or Plasma 88 mg/dL 70-140 [facility] Potassium [Moles/volume] in Serum or Plasma 4.0 mmol/L 3.4-5.1 [facility] Sodium [Moles/volume] in Serum or Plasma 140 mmol/L 136-145 [facility] Urea nitrogen [Mass/volume] in Serum or Plasma 9 mg/dL 6-20 [facility] Anion gap 3 in Serum or Plasma 15 mmol/L 8-15 [facility] Osmolality of Serum or Plasma by calculation 288 mosm/kg 275-300 [facility] Creatinine/Urea nitrogen [Mass Ratio] in Serum or Plasma 15 [facility] Calcium [Mass/volume] in Serum or Plasma 8.3 mg/dL 8.6-10.0 L [facility] Glomerular filtration rate/1.73 sq M pre dicted among non-blacks [Volume Rate/Area] in Serum or Plasma by Creatinine-based formula (MDRD) >6 0 [facility] Glomerular filtration rate/1.73 sq M pre dicted among blacks [Volume Rate/Area] in Serum or Plasma by Creatinine-based formula (MDRD) >60 [facility] ID Date Data Source [id number] 06/01/2019 07:04:07 AM [facility] Name Value Range Interpretation Code Description Data Amarilis rce(s) Supporting Document(s) Magnesium [Mass/volume] in Serum or Plasma 1.8 mg/dL 1.6-2.6 [facility] ID Date Data Source [id number] 06/01/2019 07:04:07 AM [facility] Name Value Range Interpretation Code Description Data Amarilis rce(s) Supporting Document(s) Phosphate [Mass/volume] in Serum or Plasma 2.8 mg/dL 2.5-4.5 [facility] ID Date Data Source [id number] 06/01/2019 12:28:17 AM [facility] CT ABDOMEN PELVIS WITH CONTRAST [id number] AL RESULTInterpreted by:Russ Sanchez, MDPROCEDURE INFORMATION: Exam: [...] DOCUMENT HAS BEEN ELECTRONICALLY SIGNED BY RUSS SANCHZE MDThis document has been electronically signed by Russ Sanchez MD on 06/01/2019 12:28 AM Name Value Range Interpretation Code Description Data Amarilis rce(s) Supporting Document(s) ID Date Data Source [id number] 05/31/2019 09:34:12 PM [facility] Name Value Range Interpretation Code Description Data Amarilis rce(s) Supporting Document(s) [facility] JHYFVx0qPgQKAlXuc4JbSoZyBBFtFD3nmhl8V9L7kJJlD2KngSQvt2ojH3AiF2WwXWJgUMAWIH9CrAGc jb2 [file] 34RwonMChRMVzlDu+9MCb0f903RUW6iWJ9Xmgk+buffing line set up worker 0I/+NMZ6v/nSGOouMy1x/DsYHTG2UVQTU1606mtJE0ZrCgz0ftjyTBDWEEBNZ8oh9KF6Z53yac3nxicz MK2jBPiq2d1pj0895VhlFTEzsBU3IXJuS1flFohRF69OLaexXu0u5eqgs+krxGuhL43OZEJwtSP2jMeN JZMLxQDfZ9jcsXZ0P5fXHb9zfGBK7jChLJJpZ/qBXx q4iKBAY6N8242zxzqCSVM1BYgKXisV4ljNEcMXhDl2VQBq3UJJCBKlzfzrz78rihpI1ssKSlEckAPkTH fAb0iAwA096bb/u+vfk8hiqakk+DoTAUEmlGdxj182wO257QxUGuhSMBtuCXC1FfG9+OWQl0858lVZZI 09uLebWKudUPgMnoPm5g/wjxGS3krBuTHsTXdurTuM iOFTcKCRQ1cEIj015f96pdaZErTK1M9Pq67haPlQbLFxogNxqy388SeAD+B3VrMd1sB/CHX1rlwtOvV2 5W4X214h6nmzu0lYFT6AZqRqTZDAET1ktPhcn6/I4M19U3oq9+baLcdx+LUe77S+gcinpOOFHnXZT7/n J1z0BrM0bHH54LQRcUdwFdS4eDqwGKQBBpskSdGhEG 9WBM4ESbz9Bv+03pqLAuSlr1GxNFeRAPmFBYA0Vqxtt2rnnXmslQrg+5MVdzDQZi4i8gLs916a4UM9o5 n9DlcjmysKacRapgpsBpkgvh62I2UdY0PdqSY20nOIhBizDih/O+szn1jJ/wjQnV6KnQ/GVK9w1iF8nu Simon+xgL4aN2P0hhCuJGdY5HKx/XAKqdZc1y7y8Ui40 [file] CRISTY+S2TiONXfz6PL1EtYxDgKYxJCFYZuCFlcNwrwvz4bj6l8UFi3+tuyCF0UnsrrsX/yqrmWj6b1c0U3 qR3Dp7er5aoEJ/Wo7ihiGGlEwZHUnlsCSMU8XT4kM5 bEsFHtruxeV4fncUhYIntrzKWJFmreczRPOFLuPGpn8xmaEhIh6lAeSGCtHs7ltsQfjLAHTFfOELB8rq xiDZP9bi+1gvR2XZk401SNAGQWdGuN0qp097U+k3Lft/y0a0GUCp5Sz5ySGVphXJufYJ5yQRmwzFQcjb P2tTDz2VXLZEx3BiaP80A4Y/EuKkmS2vaWI+IH0ekT +1XauCNRuF1bQCHHAsCrVCUeakzsZ9veORWqC7xdB7NwKzxcTrxLdSPOPofFT6QwePJP/XZ9A9eZTJb0 QpVxRGRxDUoeTKHawiIuXpkbb4nIfY4mqhObYV3h+cSYxAeT+GI5jv4w+E4LEr2Z2wVSzivWTeLEEX0e D/YPs3F19k/soD+RU9RPDtvU4cvNE+Q4hpL+2bnvbz 2IH/DopEMkQXy9AQdtWdipuIUJwqcGvGXGpzco+Wfnvm/dSpORoWLSIrt119FrcopXaql5xEh7XTNjg1 EOUrCeYAsQQ+p544bu7YA2AU5WQddnakKKihkijiD1cBHS4bBoz6uEBUr55pFhug9543MjwdFPqb2V4D 4oaku2J8FL6PFgeWv4+RuKK/X9k/rif4tAnr+hKWxl vp corporate partnerships/n8/xXPzSV6Bs2q23Udm/4Pf/+qxpbqd49mmeID1E2//yylerc87gF/fV/rOm3jpm/uUuehjxa48Ku 8+59p7Imsv1Tw/ErJ1R+/5Wf/Yz2/QGfXrB2olmiJ3C2M1bL3k1/nb7L/YT3x1wUth6n/9d9a0gpA/wn 70hOaT/7Gnrht9oZb7yeL1//bImTOK6npq76L9+f0Z 5Ae5a8/wWlon2GB46zU+6tiL54aayuWAaxl3W2nwwaV51Gni9Onbri+60Bdn/4qsN1be1PuQ/xXom7bD 4sq3+rn3+/A4FscM2GM/9+73pe/TsePf9+H/r9J+/YMd2tMnt/t8oZpgo/fX+g/Hnsp6B/f5h///6D/L ttP8S/Jph/G0K9j6qymwmpys/5nmV6oxcG30m/baf9 lJ036pUd6ssb7V34Qhs8m93o15sWmX6R7f/c84TdVmmfjkLZNQ4+bOnop+Vjhy0f+8dzuJgDScoX9acw 1u16shU9WS2K1fYZU4Dwc0x/30pM3/zn25qXJ9o/EjLJOg2sy6hTYfK42AS66jmpWHWbr8owSKpmAcz6 ruzmJn21Cpxa0fhX7dvAQI9ByiL9dQFna62W/FUMtG yi6Q9w407r4nCNNcP4c/N+T0c/FaU2mMYO2U7zSe+36ni3c75ze2Myyi4Cf8o88bA3OSao38xey8ak6X x3nLaHFps9suv3PwTFB9iPcTff49M8E/KOivIrfod/Hg2/Q43JcPktYQQ2eSW/DdjzWPJmP/9+L+t5Ps eOmrgMm7zT6/Ue0Ggjh9U62sc/lnUMYxs6Esjlavo8 px8C9dR7BUr0fMfqG5Dl207in8WiQse5t8cb8/NrC0vfm89Llu+5OpsbkuPVea3u/HHb/2lfd07G6yyO 8v0eK2heRk7Zqygzrvq/vnizizd7DP35K5476OGrW2kw2bjKYJ3+M/D+lUjpbpR5VB5teUNObKmhDr1w 6a6HUefwrn9kqoMaVrrwf45BZ61rp8+/Z+GronLaay b5gwm4N6/q29Uen4TZ9h9u+Gq35/TvSg9/n+fgD6e7edLQ+Bj9A40pzyyCu5Bh16zDLrizBWc85u+s38 slJ7JLrTLEpytmoDIn8vybz/CXJ59j3On0mvz1bCoL6b20/ouYBzT8him5adHSQ+pMQoK73MbRQbMVXZ 9WDngoardSwN/ab1g2rDnPtPjL16/K/93bCvg8n4/y ayUgimr6OH0xadcj1ueEx/QFrr2r66fvEO//nabQDVy913cj/JEgXTT811IA2K3tnVK+m42rsANZ9bv4 0z288VTdfuESaTddnLDJKsq+Yoh30KPgYSo0yrpqHGtz0F9K005vF67a+H0cv/HDV3/e8FyYI59rXcu3 89zuhW0yFY/W2nTUs7fyrcASB21nuRzSy7oUt40o8t 5D7//J+zcfK+A39ZhwR2Wrueo+O/RbZm5H2A486MKQR78GcNLvrD8chkD5kO80rGW2t55d+lfvoH+Fr9 r3wzpWhqOyF20ivfwrhGx/LXzlcha+0bEZ6OsRE45WG+0qagyd5dz0c9V4P43D5gRX7/Erz2Etbdn81q Pklf9c+Nm64cckYN8BRsoUh+Os0Dup5GHjCqwYA4We q/6Hmbb7pqMNkpp2RswEfkbiyrDcXT/CV+1N1t5+NgyaaFvauxFzpKDqWO29+fjkg507ozCgmbtk1Ma0 uxMvojSj578HwfYwHj6x+xe+yz9TBhAc+Go/1+Y8Jt9xk7EvSUgudgmH3LIrvQVj1MDFuby0sqGK0KFo q/0O/WRCo29AeoPw9qneIhcB9N1LHyW+auGr/W05el 09we2lU9yBtfoIBhE6cK//vPDVbg/6d/bj/xe+3q4bA70K+Wgb8Fjw/ac5120lIor3xhMDdWvTHeNz/7 1nH0aC57o/K+bt3n6ij+t/5WaggzsCpiNtBafx21z88mej3r6l7oQbgJoC8tHjp3y/ugipaIL6MkW7e2 xU8so8wTRH+Ky25DN6oYZSKs48CwZXdvXDbA3zQMsw SQ+hbO5ExE/U/dP439farz1/7bhej5cjhJ6Cum+i6r52Wf/az+28M08/Tas8Yg53pucs5zPo3k/AV0X4 6nmzqd/fy+oA7ZbTW11s8bF/t/NtoJw4/n0yjne1YkAutgC8mXKMDM1cHYXq3FoNR6W3wme4TxsS+Erl C18p+Vr4yt/k607J9iqm89JIJ80N/6y0aY/TInylBP ZYe3uOzn859jvZ0Ecdi90ZlcxfmDguuDyIilyiK+zoVb0IdY+WP1+N5wbAR6T7l4wSmDDCkB7Ic/CV5F q5ukafM75LT+1n9G+FySSrn9I/6/AMIgd4DE/g/XHsU/Ar7KYPD7ecSV5fCwBEnt2vbjvC2/Rwj1EsgZ KlzSjjPAb143WHB8eEnx/xs1BtaY877DDUqK4miUFp G/pX+EpytRPPWWnQ7/vz6Ked+JmbMW37st/kb9Phjs+O3Kpw4wdFl8QJETozxbc51x2JP/4txld+Pv0l fCU7D/Xq9WLH9dl2PK5WdH1Hgm/kf+EV40gyA3bIp47Pu9IuFI+TahbBk2L5VqWlfCH2fF/r0UOv+H2t P0Brzw26BhkXZqJ+4ce2aCyXI1Ua9LA6+pyN9MHuE+ UrmYp0OmitAv+Xcda/RfErXZih+XI3tOgQtDyzW3o4iOej3B+ZT3cgtbhdCjj/6jKSI5El8v4V0Hp6bv YEbt0BlfydXn0s0K+AfygU59w/rjTm/a7ocfetG/n00LY18n0PdWkniVCO+WoOH6k0vy+fm0fl36ia8w 2c8FcT/redCyao9c2/sX2lzKZ6Vgx+8r0qC1/ZTha+ yy5dhWSk1QsTog/YQ68FagV73wfIFs+v/dTnrI+j5RQdzNr9jAKd1Jyf8Kso+A4AndXKrInB6CKZlo0g ZMp6Z20F+0GJ8XgEh50uIlM+oPL3vD/46PmUr/8OlFb9u7eAbhcXcm5E8HSP/sJXGpsrL/l9/6wHazrr kAa7XZqySa01gLTs7vaqXmcuL2R41/INlpsBAEb5Zj YskEmiR32QjfLiI7//2STXa9FM8QgKlpKo3XlnVXJ8svxIBzK/6W6esmH5/Urub6Q3n8042kfvP39xeq 99nvzA9v7gMG/LiwfvzrMG6pKgSBk7+K/CoKl7f5y3Kox70htSh4f87G+sxONtM+JitBw9vtSCtb7o7w 2zb7Pmh9DYit7RppL7K6wc227Gz/G96yZtN7f5Xe/g qJg9uZHAowkAAk4in41j+oeq+JUS4hS/wr8Y9cvSff0R74UCXilH2ppl+dzSU4E6AmbBtotxj4vDvvsx d0E2JzJ2E8dZI5kauJsG+Mpv7PPeltxt4vcrqOZUksdCD8G6/HMVvpJtC1/JloSv/H4+9XjklX9Gc5Ij 6oRB0a1+apTIfx1fqtXOf3hC2ea2r4ElJAVYs3PSip appCpQaen4O4rx03YVLoHDNTtIMm1Nbf+cdHvW+0K5y9OPkUj9Tej48ZfgDVkys9diUBpHk9hN/LPwVf Ne5ILmaqeAfkp+Fb4XA4sulHnuB+Hm1k14y2y/UPm2Z3+d1eYdhRjhPNEf3et7WhuVG4fvR/U0Ou1UPa 0c6u8Ntb94s6O/sGJ/hQgL5kubJ6Pwrytiltl+8rP2 B/XOwle+ruKo204ViqjFnA6s/sHe45cnXph3/X31r+a4ha/272c/DDNAk17sYDHwKnnzzUqRS34f3TJq jt/Gwffklcpu74c4Ic4Byu4jDfdULhxYJceQShjWDw0LIdgqM/rbJa/z64Vs5X0Krcpdrwb2tmU/VLU/ 6OdAe+Duk155ewm7Aidsqav7IWOw0Ss40z0E/Ko9Z3 +/KX6l7B/Fr/z7seem+ZEeGa7h/9b2U0t0nmfzN6uO2EwpT3A+cRYuNmhAszCCOwd8ZgCpldUh1tgM+M liEFh48iu4/vthhH54qm9fuX1523SU0aG+ymdu1685wcg2Rms2mZv3qEYMb8/VdP5q5/a2ve/QtD+4n9 urE5y/woljtF2YEy0K2AsOj8v/WV268TizRY0gNjzh n/iit5qdZ0e/NewPNsWvZA/00B894XknONHe/Xz0r/iV36/4/ziIMjJWNt5nnNmGtSNn5E4m+ewvrJzd t/1B6en1r9/PfkpT/GphqlbOfmgrCb+lw8Tzmf0ansxOb9uM5fT9+qUc/9qQ8a8peogxla91Sb9u3/H6 90aBe7NMzniki4BMia7mvVkHko35S4+3oqXe8i8jgs /4Y0JOHk/Tqk7wEen8PJxbwjvsHgpRV29nab1Cq/OjT4z49Z+udNy3/G24ZysOA/NvU/zRhTF0xClnRm zRGsZvO/VRAcwIVqt9D/3m3Ozthm4wm1XKt3/64q5wS6D1R/1mqe41Nq754vfg/Yzfz/5+0/kr2f/CV1 o7rKTb/RznPMNKufXcsTJuPT+9RDiVTzx5myK+kn6E r4qfT7/o/JV/nwwaAKkRrg4mJc2qUvd4u8sssg9ky5efjOC3C41ggZ26rZ6xXF/VhK9kY/3eT64vKeB3 rbjI1rY+Ly/+b/3Ec1o/+8Npt6ehslf1Vv0BO9UJ+4NN+Eq66h2/k7PlMU6RH/c32UDIRZ7jylNa/NVO kb2nw0I/35L9f1Y1ApdgJEp15HzDC5selR/bwPgdZz +lYX+rAEhklo6S/Mitzy+Ktx9o/aOPsLTfErywV/QO53nu8c/4ddBz7iBZwfnqUpcDzi8xrEW952SVLneD rv6jyOf49jsD3++Ko/wf9vEm8dYp//cfrbmxTs9yx4aGNpb+auO48dPUMiwrlX+MNX/Crispin/1aabG/S82 +4Dz7lqeIdh3t4ya24XvC0+12Jc8/Bk/Nb1M9mxpVQ r5K+Xh83ChOonT9eZWvn7fMbKMpyMtRkDuX3q4wZ+svsf41Hg+E6zg8nuH4p16d5VCDW+g6m4CkxhDkE rMYxpx74w8yJ8+d3/ij8monYzz9AMkDPQIv0Xiv+yxvit14Sto/5d+136/ssA8Aff+UTQvGr/Ka/bl0J XykJTfhK3+PfezImyW0xh/Vg5DP/Rj54I/A8Bpk4qo D6xY9O7LxaYjeGwUO82HlpbwPtbb+h81f+qX72EibDZ41VmD4DgU5P9Vx0ndPPORcOStJ0trvE+Mrv5N BomvRH9cDEg94i2tzj7gfocZDiPXRf5xiPhNW7968sGf6hn7swrAkCnSb21Vu2guMS+Er2WY9/Dp1vdw YthgDF8Oa17JZj4iXpyj9rezv7+21m7394uqtoBqwF 9az3Q/mAlnShV4S8+Qsri/Vtm+BRZYPuV7y7CV/P2zG5Mjlz7q+e5/zXsTGo1btzj7pe7/Denver/tvklfP kFf4yr/X4w+Uf5CASJ34S02q41r1zm/CV/Z2PN2wexim58W4+QuiJRYl9JSM7iHYLXEV+QziBvo7cCuI iRPfWFmqu/1x4huh+LEXDpfEd398+45hNyRuw58izt PMOVCXpIp14EZT4el6+0cR8M/UU5Tyoj0oaKPGAX3/8ZyVlPr+zt92y4hnp/yF6PBX/cy/Kx31/wong/B AUiH3A4q/6ttBz1T4+8hein/zP1CUkI8KY/mqc/ZTQ/zK3aKt7edgGd+wEss7bMC8RWu0p/LMejHHWCz FO/pVIq94Inz/28+yfhjPe0JaXzSlyfqQqhlitSjr/ tZ/tZ1arrQL9f78dnTR/Hzp/JZ+p/UHVO89+WeqyKkrbp3da51o7sGCXJdvGvaNxdRj/O+H5ndF6etRm uHqG611nU2/VnlgoyX8G+auO+FX3+av+voTI9zn+qNqSs556cH1A8t5o/ZT+yBQHReTqgnim0u8rU11/ 4E6kGznansCHf/w8UM5A+Sf+3IWvVn/7bGb2xddog0 7OeaSezvzbEb/w4ly038Khrbc37sKfYU088QmoBm5S/pF+hcoL7UQFGz1d9T3GL67j97L4M13JdUe9dg +r1Rmvt8+MUY+xjQV7Lt/2HF7jqtKHn9vfVz8/7Pmc5+/CV+fxjZ63IiTEaJg18jV05mcDta8dQGbK/R 71tcag42erL+x7k55Vk//afF/8bkuImzh4l9ypiuYK Fkeps+s+j/s6xCQGgPAWntk1ChyTIj/9JI3dwTQIpv/3L56rrpQ6t9kNX7d934sk/w32XmHL6E9SMsQp /DWfCt73Pw4J8tH+lsgYx6l93avyGxyl+Yvj9f9Uk5DmD6UA/gt9zU3AVAky98T4XyzLbsy9s1pmg4gS FjTpQApp/whzGRGxjvsSFErcymLzeeT9ULQ1YVresD MOpol2/dZ2ah68HH1fm2M89tCLcrNanYh+VsumQce3Hh0I31j13aUbmc6ytAddP6WJHIVA66DoSsUr5X oZVleCFdy4eHGE/HRQpix+0qyDtpe96VIajknNJt66SEZ05hBGViV6E659AZOldx6kOWY/fK4o59Qk1f ijgKeQln7x5/xlNESDY2Ym7zc4KBnCuPd6vqtC6hPC n6O36enldiD/xNJBkaTrPo+/2lqFSceFyd0FjadHU0mBYcr3+vVRd0HoXeClq+m6c0rTULRo01BY0ReH pmO4GApMQkU00lCZjXInUSTQDOfKk1OQHgoM9TNLW9Pxv8KQ/DsykVRy3IXLAU3WrwK1Vat23CZkQtiN B/RXT9zB3XlOWpAmrLc+wHX56TAgs0/NmEOCeM6kmY Zmg9+CwaO57EuINVlM+V7UQ2sS4yyABaTEQiepPJ/S9Bm6gdg0dsyUqdT0OTkKWSB/cC46AE3hvmIT5n Nxk2wqXeJekDyaSn0ZKPjNsqNcaK7y5lAYlwoWnJ9aKp4+mnb5LhL7Ii26wbQWvsYYWBQKCkbnNsb/VÍCTOR [file] AwMDAgbiAKMDAwMDAwMDQwOSAwMDAwMCBuIAowMDAw QEEmPBMuSDEiKGIvMK8bQnAlXJNyIEV6QEUqVGTnLNJnffGBUWPtOYMzNBw5MXAqEPYaJJNuJMrdHLSn KAZgACU1VBEcJZFwJB3lWdXgRUZhASB0JfVjRIYyYZKkbjUKHURkEMEeHPC9HwGhWPTvEOJqJKqsBTGu UYBtTIvzVQWeGVUgKS8nPcDmIRLtDHGhBJutQPVtZI YxitRFIZPfMNXhBOPiVkSdZTUlBVBpWCrdZCCiKYniNTQ4DXBiHENeJR6fGjRoDBNaVTP1IDzjEPIkSU PqirTLMCFwOKKmIFddCMMaFGNfDHJqODrzSEThMEKsLGN6PCHfQTAhZC0bDrEuBWZzEZEhFEAlBgP7Wj MkHoQPgZCbzAuwpra9WZibD9d1HLBeDUptAG4rtaAp LVUtCrzqSq9jnSB6QBWlBwjHTl7Ij6GcaeG8tcPjMmb5BICzHfGxAT5I ID Date Data Source [id number] 05/31/2019 07:54:38 PM [facility] Name Value Range Interpretation Code Description Data Amarilis rce(s) Supporting Document(s) Sodium [Moles/volume] in Blood 135 mmol/L 136-145 L [facility] Potassium [Moles/volume] in Blood 3.9 mmol/L 3.4-5.1 [facility] Chloride [Moles/volume] in Blood 99 mmol/L 98-107 [facility] Carbon dioxide, total [Moles/volume] in Blood 28 mmol/L 22-29 [facility] Calcium.ionized [Moles/volume] in Blood 1.18 mmol/L 1.13-1.32 [facility] Glucose [Mass/volume] in Blood 84 mg/dL 70-140 [facility] Urea nitrogen [Mass/volume] in Blood 11 mg/dL 6-20 [facility] Creatinine [Mass/volume] in Blood 0.5 mg/dL 0.70-1.20 [facility] Hematocrit [Volume Fraction] of Blood 34 % 41-53 L [facility] Hemoglobin [Mass/volume] in Blood by calculation 11.6 g/dL 13.5-18.0 [facility] ID Date Data Source [id number] 05/31/2019 07:54:38 PM [facility] Name Value Range Interpretation Code Description Data Amarilis rce(s) Supporting Document(s) pH of Venous blood 7.38 7.36-7.41 [facility] Carbon dioxide [Partial pressure] in Venous blood 46 mmHg 40-45 H [facility] Oxygen [Partial pressure] in Venous blood 29 mmHg [facility] Base excess standard in Venous blood by calculation 2 mmol/L [facility] Oxygen saturation Calculated from oxygen partial pressure in Venous blood 54 % 60-85 L [facility] Lactate [Moles/volume] in Venous blood 0.8 mmol/L 0.5-2.2 [facility] Bicarbonate [Moles/volume] in Venous blood 29 mmol/L [facility] ID Date Data Source [id number] 06/05/2019 10:35:48 AM [facility] Cmnt XXX-Imp : Microorganism XXX Cult : No growth (qualifier value) Name Value Range Interpretation Code Description Data Amarilis rce(s) Supporting Document(s) ID Date Data Source [id number] 06/05/2019 10:35:48 AM [facility] Cmnt XXX-Imp : Microorganism XXX Cult : No growth (qualifier value) Name Value Range Interpretation Code Description Data Amarilis rce(s) Supporting Document(s) ID Date Data Source [id number] 05/31/2019 07:19:33 PM [facility] Name Value Range Interpretation Code Description Data Amarilis rce(s) Supporting Document(s) Leukocytes [#/volume] in Blood by Automated count 13.6 10*3/uL 4-10 H [facility] Erythrocytes [#/volume] in Blood by Automated count 3.46 10*6/uL 4.6- 6.1 L [facility] Hemoglobin [Mass/volume] in Blood 10.2 g/dL 13.5-18 L [facility] Hematocrit [Volume Fraction] of Blood by Automated count 31.1 % 4 1-53 L [facility] Erythrocyte mean corpuscular volume [Entitic volume] by Auto mated count 89.9 fL 80-96 [facility] Erythrocyte mean corpuscular hemoglobin [Entitic mass] by Automated count 29.5 pg 27-33 [facility] Erythrocyte mean corpuscular hemoglobin concentration [Mass/volume] by Automated count 32.8 g/dL 32.0-[facility].0 [facility] distribution width [Ratio] by Automated count 14.6 % 11.5-14.5 H [facility] Platelets [#/volume] in Blood by Automated count 962 10*3/uL 150-400 H [facility] Differential cell count method - Blood [facility] Neutrophils/100 leukocytes in Blood by Automated count 69 % [facility] Lymphocytes/100 leukocytes in Blood by Automated count 17 % [facility] Monocytes/100 leukocytes in Blood by Automated count 13 % [facility] Eosinophils/100 leukocytes in Blood by Automated count 0 % [facility] Basophils/100 leukocytes in Blood by Automated count 1 % [facility] Neutrophils [#/volume] in Blood by Automated count 9.35 10*3/uL 1.8-7 .0 H [facility] Lymphocytes [#/volume] in Blood by Automated count 2.31 10*3/uL 1.2-4 .0 [facility] Monocytes [#/volume] in Blood by Automated count 1.82 10*3/uL 0-0.8 H [facility] Eosinophils [#/volume] in Blood by Automated count 0.04 10*3/uL 0-0.5 [facility] Basophils [#/volume] in Blood by Automated count 0.11 10*3/uL 0-0.2 [facility] Nucleated erythrocytes/100 leukocytes [Ratio] in Blood by Automated count 0 /100{WBCs} 0-0 [facility] ID Date Data Source [id number] 05/31/2019 07:39:39 PM [facility] Name Value Range Interpretation Code Description Data Amarilis rce(s) Supporting Document(s) Prothrombin time (PT) 13.9 s 12.5-14.9 [facility] INR in Platelet poor plasma by Coagulation assay 1.03 [facility] Routine intensity oral anticoagulation I NR is typically 2.0-3.0. Target INR must be clinically individualized. ID Date Data Source [id number] 05/31/2019 07:39:39 PM [facility] Value Range Interpretation Code Description Data Amarilis rce(s) Supporting Document(s) aPTT in Platelet poor plasma by Coagulation assay 33.4 s 24.0-34. 0 [facility] ID Date Data Source [id number] 05/31/2019 07:47:27 PM [facility] Value Range Interpretation Code Description Data Amarilis rce(s) Supporting Document(s) Albumin [Mass/volume] in Serum or Plasma by Bromocresol green (BCG) dye binding method 3.0 g/dL 3.5-5.2 L [facility] al Bilirubin.total [Mass/volume] in Serum or Plasma 0.2 mg/dL <1.2 [facility] Bilirubin.direct [Mass/volume] in Serum or Plasma <0.3 [facility] Alkaline phosphatase [Enzymatic activity/volume] in Serum or Plasma 77 U/L 40-129 [facility] Aspartate aminotransferase [Enzymatic activity/volume] in Se rum or Plasma 9 U/L <40 [facility] Alanine aminotransferase [Enzymatic activity/volume] in Seru m or Plasma 10 U/L <41 [facility] Protein [Mass/volume] in Serum or Plasma 6.1 g/dL 6.4-8.3 L [facility] ID Date Data Source [id number] 05/31/2019 07:47:27 PM [facility] Name Value Range Interpretation Code Description Data Amarilis rce(s) Supporting Document(s) Bicarbonate [Moles/volume] in Serum 26 mmol/L 22-29 [facility] Chloride [Moles/volume] in Serum or Plasma 98 mmol/L 98-107 [facility] Creatinine [Mass/volume] in Serum or Plasma 0.59 mg/dL 0.70-1.20 L [facility] Glucose [Mass/volume] in Serum or Plasma 88 mg/dL 70-140 [facility] Potassium [Moles/volume] in Serum or Plasma 4.0 mmol/L 3.4-5.1 [facility] Sodium [Moles/volume] in Serum or Plasma 137 mmol/L 136-145 [facility] Urea nitrogen [Mass/volume] in Serum or Plasma 10 mg/dL 6-20 [facility] Anion gap 3 in Serum or Plasma 13 mmol/L 8-15 [facility] Osmolality of Serum or Plasma by calculation 282 mosm/kg 275-300 [facility] Creatinine/Urea nitrogen [Mass Ratio] in Serum or Plasma 17 [facility] Calcium [Mass/volume] in Serum or Plasma 8.6 mg/dL 8.6-10.0 [facility] Glomerular filtration rate/1.73 sq M pre dicted among non-blacks [Volume Rate/Area] in Serum or Plasma by Creatinine-based formula (MDRD) >6 0 [facility] Glomerular filtration rate/1.73 sq M pre dicted among blacks [Volume Rate/Area] in Serum or Plasma by Creatinine-based formula (MDRD) >60 [facility] ID Date Data Source [id number] 05/31/2019 07:43:23 PM [facility] Name Value Range Interpretation Code Description Data Amarilis rce(s) Supporting Document(s) ABO and Rh group [Type] in Blood [facility] Blood group antibody screen [Presence] in Serum or Plasma [facility] Blood bank comment [facility] Procedure Social History Code Duration Value Status Description Data Source(s ) Smoking 06/07/2020 02:13:00 PM EST Daily Smoker completed Daily S moker [facility] Alcohol intake 06/01/2019 12:00:00 AM EST Lifetime non-drinker (finding) completed Lifetime non-drinker (finding) [facility] ital Cigarette pack-years 06/01/2019 12:00:00 AM EST UNK [facility] Cigarettes smoked current (pack per day) - Reported 06/01/19 12:00:00 AM EST UNK [facility]spital Smoking 06/01/2019 12:00:00 AM EST Heavy tobacco smoker comple bryn Heavy tobacco smoker [facility] Vital Signs ID Date Data Source UNK Name Value Range Interpretation Code Description Data Source(s) Deprecated Oxygen saturation in Capillary blood by Oximetry 98 % Normal (applies to non-numeric results) 98 % [facility] Body temperature 37.6 jana Normal (applies to non-numeric results) 37.6 jana [facility] Respiratory rate 20 min Normal (applies to non-numeric results) 20 min [facility] Heart rate 95 min Normal (applies to non-numeric resul ts) 95 min [facility] Diastolic blood pressure 87 mm[Hg] Normal (applies to non-numeric results) 87 mm[Hg] [facility] Systolic blood pressure 128 mm[Hg] Normal (applies t o non-numeric results) 128 mm[Hg] [facility] Body height 174.3456 cm Normal (applies to non-numeric res ults) 174.3456 cm [facility] Body weight Measured 60.2 kg Normal (applies to non-num ayden results) 60.2 kg [facility] Body mass index (BMI) [Ratio] 19.60 kg/m2 No rmal (applies to non-numeric results) 19.60 kg/m2 [facility] Body mass index (BMI) [Ratio] 20.7 [...] [Ratio] 20.1 kg/m2 20.1 k g/m2 REBEKAH ([facility]) Body height 69 [in_i] 69 [in_i] REBEKAH ([facility]) Diastolic blood pressure 73 mm[Hg] 73 mm[Hg] REBEKAH ([facility]) Body weight 2182.4 [oz_av] 2182.4 [oz_av] ATHEN A ([facility]) Systolic blood pressure 109 mm[Hg] 109 mm[Hg] A [facility] ([facility]) Body weight 2192 [oz_av] 2192 [oz_av] REBEKAH ([facility]) Systolic blood pressure 107 mm[Hg] 107 mm[Hg] A [facility] ([facility]) Body mass index (BMI) [Ratio] 20.2 kg/m2 20.2 k g/m2 REBEKAH ([facility]) Body height 69 [in_i] 69 [in_i] REBEKAH ([facility]) Diastolic blood pressure 60 mm[Hg] 60 mm[Hg] REBEKAH ([facility]) Body weight 2192 [oz_av] 2192 [oz_av] RE[facility] ([facility]) Systolic blood pressure 107 mm[Hg] 107 mm[Hg] [facility] Body mass index (BMI) [Ratio] 20.2 kg/m2 20.2 k g/m2 REBEKAH ([facility]) Body height 69 [in_i] 69 [in_i] RE[facility]KAH ([facility]) Diastolic blood pressure 60 mm[Hg] 60 mm[Hg] RE[facility]KAH ([facility]) Body surface area Derived from formula 1.76 m2 1.76 m2 [facility] Body weight 62.313 kg 62.313 kg [facility] ([facility]) Ashby body weight 160 [lb_av] 160 [lb_av] MEDEN T ([facility]) Body mass index (BMI) [Ratio] 20.3 kg/m2 20.3 k g/m2 [facility] Body weight 137.38 [lb_av] 137.38 [lb_av] MEDEN T ([facility]) Body height 69 [in_i] 69 [in_i] [facility] ([facility]) 5'9" Diastolic blood pressure 69 mm[Hg] 69 mm[Hg] [facility] ([facility]) Systolic blood pressure 106 mm[Hg] 106 mm[Hg] [facility] Body weight 2144 [oz_av] 2144 [oz_av] REBEKAH ([facility]) Body mass index (BMI) [Ratio] 19.8 kg/m2 19.8 k g/m2 REBEKAH ([facility]) Body height 69 [in_i] 69 [in_i] REBEKAH ([facility]) Body weight 2144 [oz_av] 2144 [oz_av] REBEKAH ([facility]) Body mass index (BMI) [Ratio] 19.8 kg/m2 19.8 k g/m2 REBEKAH ([facility]) Body height 69 [in_i] 69 [in_i] RE[facility]KAH ([facility]) Body weight 2144 [oz_av] 2144 [oz_av] REBEKAH ([facility]) Body mass index (BMI) [Ratio] 19.8 kg/m2 19.8 k g/m2 REBEKAH ([facility]) Body height 69 [in_i] 69 [in_i] REBEKAH ([facility]) Body weight 2144 [oz_av] 2144 [oz_av] REBEKAH ([facility]) Body weight 2144 [oz_av] 2144 [oz_av] RE[facility]KAH ([facility]) Systolic blood pressure 130 mm[Hg] 130 mm[Hg] A [facility] ([facility]) Body mass index (BMI) [Ratio] 19.8 kg/m2 19.8 k g/m2 REBEKAH ([facility]) Body height 69 [in_i] 69 [in_i] RE[facility] ([facility]) Diastolic blood pressure 101 mm[Hg] 101 mm[Hg] RE[facility]KAH ([facility]) Body weight 2144 [oz_av] 2144 [oz_av] [facility] ([facility]) Systolic blood pressure 130 mm[Hg] 130 mm[Hg] A [facility] ([facility]) Body mass index (BMI) [Ratio] 19.8 kg/m2 19.8 k g/m2 REBEKAH ([facility]) Body height 69 [in_i] 69 [in_i] RE[facility]KAH ([facility]) Diastolic blood pressure 101 mm[Hg] 101 mm[Hg] RE[facility]KAH ([facility]) Systolic blood pressure 130 mm[Hg] 130 mm[Hg] A [facility] ([facility]) Body mass index (BMI) [Ratio] 19.8 kg/m2 19.8 k g/m2 REBEKAH ([facility]) Body height 69 [in_i] 69 [in_i] REBEKAH ([facility]) Diastolic blood pressure 101 mm[Hg] 101 mm[Hg] REBEKAH ([facility]) Body weight 2144 [oz_av] 2144 [oz_av] REBEKAH ([facility]) Systolic blood pressure 130 mm[Hg] 130 mm[Hg] A [facility] ([facility]) Body mass index (BMI) [Ratio] 19.8 kg/m2 19.8 k g/m2 REBEKAH ([facility]) Body height 69 [in_i] 69 [in_i] REBEKAH ([facility]) Diastolic blood pressure 101 mm[Hg] 101 mm[Hg] REBEKAH ([facility]) Body surface area Derived from formula 1.72 m2 1.72 m2 JACQUIE ([facility]) Body weight 59.138 kg 59.138 kg MEDGAY ([facility], ) Ashby body weight 160 [lb_av] 160 [lb_av] [facility] T ([facility], ) Body mass index (BMI) [Ratio] 19.3 kg/m2 19.3 k g/m2 [facility] ([facility]) Body weight 130.38 [lb_av] 130.38 [lb_av] [facility], ) Body height 69 [in_i] 69 [in_i] [facility] ([facility], ) 5'9" Diastolic blood pressure 81 mm[Hg] 81 mm[Hg] [facility] ([facility]) Systolic blood pressure 126 mm[Hg] 126 mm[Hg] [facility], ) Body weight 8 [oz_av] 2048 [oz_av] REBEKAH ([facility]) Systolic blood pressure 116 mm[Hg] 116 mm[Hg] A [facility] ([facility]) Body height 69 [in_i] 69 [in_i] REBEKAH ([facility]) Diastolic blood pressure 80 mm[Hg] 80 mm[Hg] RE[facility]KAH ([facility]) Body weight 8 [oz_av] 2048 [oz_av] REBEKAH ([facility]) Systolic blood pressure 116 mm[Hg] 116 mm[Hg] A [facility] ([facility]) Body height 69 [in_i] 69 [in_i] REBEKAH ([facility]) Diastolic blood pressure 80 mm[Hg] 80 mm[Hg] REBEKAH ([facility]) Body weight 8 [oz_av] 2048 [oz_av] REBEKAH ([facility]) Systolic blood pressure 116 mm[Hg] 116 mm[Hg] A [facility] ([facility]) Body height 69 [in_i] 69 [in_i] REBEKAH ([facility]) Diastolic blood pressure 80 mm[Hg] 80 mm[Hg] REBEKAH ([facility]) Body weight 2048 [oz_av] 2048 [oz_av] REBEKAH ([facility]) Systolic blood pressure 116 mm[Hg] 116 mm[Hg] A [facility] ([facility]) Body height 69 [in_i] 69 [in_i] REBEKAH ([facility]) Diastolic blood pressure 80 mm[Hg] 80 mm[Hg] REBEKAH ([facility]) Body surface area Derived from formula 1.73 m2 1.73 m2 [facility] ([facility], ) Body weight 59.478 kg 59.478 kg [facility] ([facility], ) Ashby body weight 160 [lb_av] 160 [lb_av] MEDEN T ([facility]) Body mass index (BMI) [Ratio] 19.4 kg/m2 19.4 k g/m2 [facility] ([facility]) Body weight 131.12 [lb_av] 131.12 [lb_av] [facility], ) Body height 69 [in_i] 69 [in_i] [facility], ) 5'9" Diastolic blood pressure 80 mm[Hg] 80 mm[Hg] [facility], ) Systolic blood pressure 118 mm[Hg] 118 mm[Hg] M EDGAY ([facility], ) Body weight 2144 [oz_av] 2144 [oz_av] REBEKAH ([facility]) Systolic blood pressure 126 mm[Hg] 126 mm[Hg] A [facility] ([facility]) Body height 69 [in_i] 69 [in_i] RBEEKAH ([facility]) Diastolic blood pressure 88 mm[Hg] 88 mm[Hg] REBEKAH ([facility]) Body weight 2144 [oz_av] 2144 [oz_av] REBEKAH ([facility]) Systolic blood pressure 126 mm[Hg] 126 mm[Hg] A [facility] ([facility]) Body height 69 [in_i] 69 [in_i] REBEKAH ([facility]) Diastolic blood pressure 88 mm[Hg] 88 mm[Hg] REBEKAH ([facility]) Body weight 2144 [oz_av] 2144 [oz_av] [facility] ([facility]) Body weight 2144 [oz_av] 2144 [oz_av] [facility] ([facility]) Systolic blood pressure 126 mm[Hg] 126 mm[Hg] A THENA ([facility]) Body height 69 [in_i] 69 [in_i] REBEKAH ([facility]) Diastolic blood pressure 88 mm[Hg] 88 mm[Hg] REBEKAH ([facility]) Systolic blood pressure 126 mm[Hg] 126 mm[Hg] A THENA ([facility]) Body height 69 [in_i] 69 [in_i] REBEKAH ([facility]) Diastolic blood pressure 88 mm[Hg] 88 mm[Hg] REBEKAH ([facility]) Body weight 2144 [oz_av] 2144 [oz_av] RE[facility] ([facility]) Systolic blood pressure 105 mm[Hg] 105 mm[Hg] [facility] Body height 69 [in_i] 69 [in_i] REBEKAH ([facility]) Diastolic blood pressure 73 mm[Hg] 73 mm[Hg] REBEKAH ([facility]) Body weight 2144 [oz_av] 2144 [oz_av] [facility] ([facility]) Systolic blood pressure 105 mm[Hg] 105 mm[Hg] [facility] Body height 69 [in_i] 69 [in_i] REBEKAH ([facility]) Diastolic blood pressure 73 mm[Hg] 73 mm[Hg] REBEKAH ([facility]) Body weight 2144 [oz_av] 2144 [oz_av] [facility] ([facility]) Systolic blood pressure 105 mm[Hg] 105 mm[Hg] A THENA ([facility]) Body height 69 [in_i] 69 [in_i] RE[facility]AH ([facility]) Diastolic blood pressure 73 mm[Hg] 73 mm[Hg] REBEKAH ([facility]) Body weight 2144 [oz_av] 2144 [oz_av] [facility] ([facility]) Systolic blood pressure 105 mm[Hg] 105 mm[Hg] A THENA ([facility]) Body height 69 [in_i] 69 [in_i] RE[facility]KAH ([facility]) Diastolic blood pressure 73 mm[Hg] 73 mm[Hg] RE[facility] ([facility]) Systolic blood pressure 119 mm[Hg] 119 mm[Hg] [facility] Body height 69 [in_i] 69 [in_i] RE[facility] ([facility]) Diastolic blood pressure 84 mm[Hg] 84 mm[Hg] [facility] ([facility]) Systolic blood pressure 119 mm[Hg] 119 mm[Hg] [facility] Body height 69 [in_i] 69 [in_i] REBEKAH ([facility]) Diastolic blood pressure 84 mm[Hg] 84 mm[Hg] REBEKAH ([facility]) Systolic blood pressure 119 mm[Hg] 119 mm[Hg] [facility] Body height 69 [in_i] 69 [in_i] REBEKAH ([facility]) Diastolic blood pressure 84 mm[Hg] 84 mm[Hg] REBEKAH ([facility]) Systolic blood pressure 119 mm[Hg] 119 mm[Hg] [facility] Body height 69 [in_i] 69 [in_i] REBEKAH ([facility]) Diastolic blood pressure 84 mm[Hg] 84 mm[Hg] REBEKAH ([facility]) Body weight 2144 [oz_av] 2144 [oz_av] RE[facility] ([facility]) Systolic blood pressure 109 mm[Hg] 109 mm[Hg] A THENA ([facility]) Body height 69 [in_i] 69 [in_i] REBEKAH ([facility]) Diastolic blood pressure 80 mm[Hg] 80 mm[Hg] REBEKAH ([facility]) Body weight 2144 [oz_av] 2144 [oz_av] REBEK[facility] ([facility]) Systolic blood pressure 109 mm[Hg] 109 mm[Hg] A THENA ([facility]) Body height 69 [in_i] 69 [in_i] REBEKAH ([facility]) Diastolic blood pressure 80 mm[Hg] 80 mm[Hg] REBEKAH ([facility]) Body weight 2144 [oz_av] 2144 [oz_av] [facility] ([facility]) Systolic blood pressure 109 mm[Hg] 109 mm[Hg] A THENA ([facility]) Body height 69 [in_i] 69 [in_i] REBEKAH ([facility]) Diastolic blood pressure 80 mm[Hg] 80 mm[Hg] REBEKAH ([facility]) Body weight 2144 [oz_av] 2144 [oz_av] RE[facility] ([facility]) Systolic blood pressure 109 mm[Hg] 109 mm[Hg] [facility] Body height 69 [in_i] 69 [in_i] RE[facility]KAH ([facility]) Diastolic blood pressure 80 mm[Hg] 80 mm[Hg] REBEKAH ([facility]) Body weight 57.380 kg 57.380 kg [facility] ([facility], ) Body mass index (BMI) [Ratio] 18.7 kg/m2 18.7 k g/m2 [facility] ([facility], ) Body weight 126.50 [lb_av] 126.50 [lb_av] MEDEN T ([facility], ) Body height 69 [in_i] 69 [in_i] [facility] ([facility], ) 5'9" Body temperature 96.9 [degF] 96.9 [degF] [facility] ([facility], ) Diastolic blood pressure 62 mm[Hg] 62 mm[Hg] MEDENT ([facility], ) Systolic blood pressure 110 mm[Hg] 110 mm[Hg] M EDGAY ([facility], ) Body weight 1983 [oz_av] 1983 [oz_av] REBEKAH ([facility]) Systolic blood pressure 115 mm[Hg] 115 mm[Hg] [facility] Body height 69 [in_i] 69 [in_i] REBEKAH ([facility]) Diastolic blood pressure 72 mm[Hg] 72 mm[Hg] REBEKAH ([facility]) Body weight 1983 [oz_av] 1983 [oz_av] [facility]AH ([facility]) Systolic blood pressure 115 mm[Hg] 115 mm[Hg] A THENA ([facility]) Body height 69 [in_i] 69 [in_i] REBEKAH ([facility]) Diastolic blood pressure 72 mm[Hg] 72 mm[Hg] REBEKAH ([facility]) Body weight 1983 [oz_av] 1983 [oz_av] [facility]AH ([facility]) Systolic blood pressure 115 mm[Hg] 115 mm[Hg] A THENA ([facility]) Body height 69 [in_i] 69 [in_i] REBEKAH ([facility]) Diastolic blood pressure 72 mm[Hg] 72 mm[Hg] REBEKAH ([facility]) Body weight 1983 [oz_av] 1983 [oz_av] [facility]AH ([facility]) Systolic blood pressure 115 mm[Hg] 115 mm[Hg] [facility] Body height 69 [in_i] 69 [in_i] REBEKAH ([facility]) Diastolic blood pressure 72 mm[Hg] 72 mm[Hg] REBEKAH ([facility]) Body weight 1868.8 [oz_av] 1868.8 [oz_av] ATHEN A ([facility]) Systolic blood pressure 109 mm[Hg] 109 mm[Hg] [facility] Body height 69 [in_i] 69 [in_i] REBEKAH ([facility]) Diastolic blood pressure 76 mm[Hg] 76 mm[Hg] REBEKAH ([facility]) Body weight 1868.8 [oz_av] 1868.8 [oz_av] ATHEN A ([facility]) Systolic blood pressure 109 mm[Hg] 109 mm[Hg] [facility] Body height 69 [in_i] 69 [in_i] REBEKAH ([facility]) Diastolic blood pressure 76 mm[Hg] 76 mm[Hg] REBEKAH ([facility]) Body weight 1868.8 [oz_av] 1868.8 [oz_av] ATHEN A ([facility]) Systolic blood pressure 109 mm[Hg] 109 mm[Hg] A THENA ([facility]) Body height 69 [in_i] 69 [in_i] REBEKAH ([facility]) Diastolic blood pressure 76 mm[Hg] 76 mm[Hg] REBEKAH ([facility]) Body weight 1868.8 [oz_av] 1868.8 [oz_av] ATHEN A ([facility]) Systolic blood pressure 109 mm[Hg] 109 mm[Hg] A THENA ([facility]) Body height 69 [in_i] 69 [in_i] REBEKAH ([facility]) Diastolic blood pressure 76 mm[Hg] 76 mm[Hg] REBEKAH ([facility]) Body weight 52.277 kg 52.277 kg [facility] ([facility], ) Body mass index (BMI) [Ratio] 17.0 kg/m2 17.0 k g/m2 [facility] ([facility], ) Body weight 115.25 [lb_av] 115.25 [lb_av] MEDRHIANNON T ([facility], ) Body height 69 [in_i] 69 [in_i] [facility] 5'9" Diastolic blood pressure 62 mm[Hg] 62 mm[Hg] [facility] ([facility]) Systolic blood pressure 100 mm[Hg] 100 mm[Hg] M EDGAY ([facility]) ID Date Data Source [id number] 06/05/2019 10:35:59 AM [facility] Name Value Range Interpretation Code Description Data Source(s) WEIGHT RECORDED 289.91 lb 289.91 lb [facility] Body height Measured 72 in 72 in [facility] Patient Treatment Plan of Care Planned Activity Planned Date Details Description Data Source (s) 24 HR Nicotine 0.583 MG/HR Transdermal Patch 06/02/2019 09:00:00 AM [facility] sodium chloride (preservative free) 0.9 % flush 3 mL 01:00:00 AM [facility] Tetrahydrocannabinol 5 MG Oral Capsule REBEKAH ([facility]) Tetrahydrocannabinol 5 MG Oral Capsule REBEKAH ([facility]) Tetrahydrocannabinol 5 MG Oral Capsule REBEKAH ([facility]) Tetrahydrocannabinol 5 MG Oral Capsule REBEKAH ([facility])
[2020-06-25] MEDS ORDERED: NS 1,000 ML IV SCH (23:32)
[2020-06-25] MEDS ORDERED: MORPHINE 4 MG/ML 1ML VIAL/SYRINGE (J2270) IV ONE (23:45)
[2020-06-25] MEDS ORDERED: ACETAMINOPHEN TAB 650MG DOSE (2X325MG) PO ONE (23:45)
[2020-06-26] MEDS: GASTROGRAFIN SOLUTION 30ML PO SCH ×2 (00:08→00:51)
--- OUTSIDE RECORDS SUMMARY | 2020-06-26 00:12 | CCD ---
Author Author [facility] Organization [facility] Address Unknown Phone Unavailable Care Team Providers Care Production Maintenance Technician Name Role Phone Sissy Crain JR, MD [...] Unavailable Unavailable Mathieu Henderson MD Unavailable Unavailable Mahtieu Henderson MD Unavailable Unavailable Mathieu Henderson MD [...] is protected by Article 27-F of the [facility] Public Health law. If you continue you may have access to information: Regarding HIV / AIDS; Provided by facilities licensed or operated by the [facility] Office of Mental Health; or Provided by the [facility] Office for People With Developmental Disabilities. If such information is present, then the following [facility] mandated warning applies: This information [...] law may result in a fine or long term sentence or both. A general authorization for the release of medical or other information is NOT sufficient authorization for further disc losure. Allergies and Adverse Reactions Type Description Substance Reaction Status Data Source(s ) Drug Class NO KNOWN ALLERGIES NO KNOWN ALLERGIES [facility] Encounters Encounter Providers Location Date Indications Data Source(s ) Inpatient Attender: Sherry Henderson MD 06/11/2020 07:52:11 AM [facility] Inpatient Attender: Sherry Henderson MDAdmitter: Sherry butt MD 06/11/2020 05:13:00 AM EST - 06/16/2020 12:02:00 PM EST ILEOSTOMY STATUS, COLOSTOMY STATUS & HX COLON CARCINOMA Z85. [facility] ILEOSTOMY STATUS, COLOSTOMY STATUS & HX COLON CARCINOMA Z85. Patient discharged. ( in Healthcare facility) Attender: Sherry Henderson MDAdmitter: Sherry Henderson MDConsultant: Daniel Henderson MD 06/11/2020 05:13:00 AM ES T [facility] Outpatient Attender: Sherry Henderson MD 06/07/2020 02:21:03 PM EST [facility] Outpatient Attender: Sherry Henderson MD 06/07/2020 01 :49:00 PM EST URGENT OPEN TAKEDOWN OF ILEOSTOMY, TAKEDOWN COLOSTOMY AND LO [facility] URGENT OPEN TAKEDOWN OF ILEOSTOMY, TAKED OWN COLOSTOMY AND LO Outpatient Attender: Sherry Henderson MD [place] 05/31/2020 01:45:00 PM EST [facility] ([facility]) Daniel Henderson MD: [address] [place] [phone], Ph. Attender: Daniel Henderson MD [facility] Medical 05/25/2020 12:00:00 AM EST [facility] ([facility]) Daniel Henderson MD: [address] [place] [phone], Ph. Attender: Daniel Henderson MD [facility] 04/27/2020 12:00:00 AM EST [facility] ([facility]) Daniel Henderson MD: [address] [place] [phone], Ph. Attender: Daniel Henderson MD [facility] 04/27/2020 12:00:00 AM EST [facility] ([facility]) Daniel Henderson MD: [address] [place] [phone], Ph. Attender: Daniel Henderson MD [facility] 03/29/2020 12:00:00 AM EST [facility] ([facility]) Daniel Henderson MD: [address] [place] [phone], Ph. Attender: Daniel Henderson MD [facility] 03/29/2020 12:00:00 AM EST [facility] ([facility]) Daniel Henderson MD: [address] [place] [phone], Ph. Attender: Daniel Henderson MD [facility] 03/29/2020 12:00:00 AM EST [facility] ([facility]) Daniel Henderson MD: [address] [place] [phone], Ph. Attender: Daniel Henderson MD [facility] 03/01/2020 12:00:00 AM EDT [facility] ([facility]) Daniel Henderson MD: [address] [place] [phone], Ph. Attender: Daniel Henderson MD [facility] 03/01/2020 12:00:00 AM EDT [facility] ([facility]) Daniel Henderson MD: [address] [place] [phone], Ph. Attender: Daniel Henderson MD [facility] 03/01/2020 12:00:00 AM EDT [facility] ([facility]) Daniel Henderson MD: [address] [place] [address]4 504, Ph. Attender: Daniel Henderson MD [facility] 03/01/2020 12:00:00 AM EDT [facility] ([facility]) Outpatient Attender: Daniel Henderson MD 02/24/2020 01:27:00 PM EDT [facility] Outpatient Attender: Laron Colindres/Cam/Herbert/Horacio dl 02/16/2020 08:40:00 AM EDT [facility] ([facility]) Outpatient Attender: Daniel Henderson MD FP 02/03/2020 10:32:01 AM EDT [facility] Outpatient Attender: Daniel Henderson MD FP 02/02/2020 10:53:02 AM EDT [facility] Outpatient Attender: aDniel Henderson MD FP 01/10/2020 11:45:01 AM EDT [facility] Outpatient Attender: Daniel Henderson MD FP 01/05/2020 10:04:01 AM EDT [facility] Outpatient Attender: Daniel Henderson MD FP 12/31/2019 09:52:02 AM EDT [facility] Outpatient Attender: Daniel Henderson MD FP 12/31/2019 09:23:00 AM EDT [facility] Outpatient Attender: Daniel Henderson MD FP 12/17/2019 12:02:28 AM EDT [facility] Outpatient Attender: Daniel Henderson MD FP 12/16/2019 09:35:00 AM EDT [facility] Outpatient Attender: Laron Colindres/Cam/Herbert/Horacio dl 11/26/2019 08:50:00 AM EDT [facility] ([facility]) Outpatient Attender: Daniel Henderson MD FP 11/24/2019 11:27:01 AM EDT [facility] Outpatient Attender: Daniel Henderson MD FP 11/24/2019 10:19:01 AM EDT [facility] Outpatient Attender: Daniel Henderson MD FP 11/22/2019 12:02:25 AM EDT [facility] Outpatient Attender: Daniel Henderson MD FP 11/21/2019 02:23:01 PM EDT [facility] Outpatient Attender: Daniel Henderson MD FP 11/19/2019 01:48:01 PM EDT [facility] Outpatient Attender: Daniel Henderson MD FP 11/19/2019 11:49:01 AM EDT [facility] Outpatient Attender: Daniel Henderson MD FP 11/17/2019 01:34:00 PM EDT [facility] Outpatient Attender: Daniel Henderson MD FP 11/10/2019 11:59:00 AM EDT [facility] Outpatient Attender: Daniel Henderson MD FP 11/05/2019 11:10:01 AM EDT [facility] Outpatient Attender: Daniel Henderson MD FP 10/28/2019 03:30:03 PM EDT [facility] Outpatient Attender: Daniel Henderson MD FP 10/24/2019 12:02:28 AM EDT [facility] Outpatient Attender: Daniel Henderson MD FP 10/23/2019 05:00:01 PM EDT [facility] Outpatient Attender: Daniel Henderson MD FP 10/23/2019 11:49:01 AM EDT [facility] Outpatient Attender: Daniel Henderson MD FP 10/22/2019 12:02:22 AM EDT [facility] Outpatient Attender: Daniel Henderson MD FP 10/21/2019 02:40:01 PM EDT [facility] Outpatient Attender: Daniel Henderson MD FP 10/21/2019 02:39:02 PM EDT [facility] Outpatient Attender: Daniel Henderson MD FP 10/21/2019 01:40:00 PM EDT [facility] Outpatient Attender: Daniel Henderson MD FP 10/21/2019 10:12:00 AM EDT [facility] Outpatient Attender: Saundra Oneill MD FP 10/14/2019 07:58:37 PM E DT [facility] Outpatient Attender: Saundra Oneill MD FP 09/23/2019 02:52:01 PM E DT [facility] Outpatient Attender: Saundra Oneill MD FP 09/23/2019 02:51:00 PM E [facility] Outpatient Attender: Saundra Oneill MD FP 09/22/2019 09:43:00 AM E DT [facility] Outpatient 09/16/2019 06:22:00 AM EDT [facility] Outpatient Attender: GIO SIMS MD FP 09/08/2019 10:20:00 A M EDT [facility] Outpatient Attender: GIO SIMS MD FP 09/04/2019 02:27:01 P M EDT [facility] Outpatient Attender: GIO SIMS MD FP 08/27/2019 10:25:01 A M EDT [facility] Outpatient 08/15/2019 06:14:00 AM EDT [facility] Outpatient Attender: GIO SIMS MD FP 07/30/2019 01:25:00 P M EDT [facility] Outpatient Attender: GIO SIMS MD FP 07/25/2019 03:37:00 P M EDT [facility] Outpatient Attender: GIO SIMS MD FP 07/17/2019 03:10:04 P M EDT [facility] Outpatient Attender: GIO SIMS MD FP 07/17/2019 03:10:04 P M EDT [facility] Outpatient Attender: GIO SIMS MD FP 07/17/2019 03:09:[address] [facility] Outpatient Attender: GIO SIMS MD FP 07/11/2019 09:42:[address] [facility] Outpatient 07/03/2019 12:31:00 PM [facility] Outpatient Attender: GIO SIMS MD FP 07/03/2019 10:19:[address] [facility] Outpatient 07/01/2019 09:47:00 AM EST [facility] [address] [phone] 06/30/2019 12:00:00 AM EST [email or web address] ([facility]) Outpatient 06/26/2019 02:25:00 PM EST [facility] Outpatient 06/25/2019 01:31:00 PM [facility] Outpatient Attender: GIO SIMS MD FP 06/20/2019 10:38:[address] [facility] Outpatient Attender: GIO SIMS MD FP 06/18/2019 10:04:[address] [facility] Outpatient Attender: GIO SIMS MD FP 06/18/2019 08:44:[address] [facility] Outpatient 06/17/2019 02:34:00 PM [facility] Outpatient Attender: GIO SIMS MD FP 06/16/2019 04:08:[address] [facility] Outpatient Attender: GIO SIMS MD FP 06/16/2019 09:21:[address] [facility] Outpatient 06/02/2019 12:47:00 PM [facility] Outpatient Attender: GIO SIMS MD FP 06/02/2019 11:00:04 A [facility] Outpatient Attender: GRIS HOBBS MDReferrer: GRIS HOBBS MD 06/01/2019 12:00:00 AM [facility] Inpatient Attender: GRIS Guzman r: CHARLINE MÁRQUEZ MDAdmitter: GRIS HOBBS MDReferrer: PROVIDER SYSTEM IN -05/31/2019 12:00:00 AM EST - 06/02/2019 12:00:00 AM [facility] Peritoneal abscess Patient discharged. Outpatient Attender: GIO SIMS MD 05/27/2019 01:59:[address] [facility] Outpatient Attender: GIO SIMS MD 05/27/2019 01:56:[address] [facility] Outpatient Attender: GIO SIMS MD 05/27/2019 01:55:[address] [facility] Outpatient Attender: GIO SIMS MD 05/27/2019 01:55:[address] [facility] Outpatient Attender: GIO SIMS MD 05/27/2019 10:13:[address] [facility] Outpatient Attender: GIO SIMS MD 05/12/2019 01:13:[address] [facility] Outpatient Attender: GIO SIMS MD 05/12/2019 11:47:[address] [facility] Outpatient Attender: GIO SIMS MD 05/09/2019 12:01:[address] [facility] Outpatient Attender: GIO SIMS MD 05/09/2019 11:52:[address] [facility] Outpatient Attender: GIO SIMS MD 05/09/2019 09:38:[address] [facility] Outpatient Attender: GIO SIMS MD 05/09/2019 09:20:[address] [facility] Outpatient Attender: GIO SIMS MD 05/08/2019 01:16:[address] [facility] Outpatient Attender: GIO SIMS MD 05/02/2019 09:46:[address] [facility] Outpatient Attender: GIO SIMS MD 05/02/2019 09:45:[address] [facility] Outpatient Attender: GIO SIMS MD 04/28/2019 02:53:[address] [facility] Medications Medication Brand Name Start Date Product [...] on Sun06/02/19 at 0900, For 30 days [facility] Medication administered onsite sodium chloride (preservative free) [...] 0.2-10 mL/hr, Intravenous, PRN, For Meds, Starting M[place]ool 06/01/19 at 2024, For 30 days [Order 6 End] [facility] Medication administered onsite gabapentin 100 MG Oral Capsule gabapentin (NEURONTIN) capsule 100 mg gabapentin (NEURONTIN) capsule 100 mg 06/01/2019 05:00:00 PM EST 100 mg Oral active 100 mg, Oral, Three Times D aily Standard, First dose on 06/01/19 at 1700, For 30 days [facility] Medication administered onsite Ibuprofen 200 MG Oral Tablet ibuprofen (ADVIL,MOTRIN) tablet 400 mg ibuprofen (ADVIL,MOTRIN) tablet 400 mg 06/01/2019 01:45:00 PM EST 400 mg Oral active 400 mg, Oral, Every 6 hours, First dose on 06/01/19 at 1345, For 30 days
Take with food.
[facility] Medication administered onsite lidocaine (XYLOCAINE) 2 % injection 5833-6702-08 06/01/2019 12:57:00 PM EST completed Code/Trauma Medicati on, Starting 06/01/19 at 1257 [facility] Medication administered onsite fentaNYL (SUBLIMAZE) (PF) injection 8740-0946-22 06/01/2019 12:55:00 PM EST completed Code/Trauma Medicati on, Starting 06/01/19 at 1255 [facility] Medication administered onsite Buprenorphine 8 MG / Naloxone 2 MG Subli ngual Tablet buprenorphine-naloxone (SUBOXONE) 8-2 MG per sublingual tablet 1 tablet buprenorphine-naloxone (SUBOXONE) 8-2 MG per sublingual tablet 1 tablet 06/01/2019 09:00:00 AM EST Sublingual active 1 tablet (8 mg of buprenorphine), Sublingual, Daily Standard, First dose on 06/01/19 at 0900, For 3 days [facility] Medication administered onsite ondansetron (ZOFRAN) injection 4 mg 62076-961-07 06/01/2019 04:11:5 9 AM EST 4 mg Intravenous active 4 mg, In travenous, Every 8 hours PRN, Nausea, Vomiting, Starting 06/01/19 at 0411, For 30 days [facility] Medication administered onsite 1 ML Ketorolac Tromethamine 30 MG/ML Car tridge ketorolac (TORADOL) injection 15 mg ketorolac (TORADOL) injection 15 mg 06/01/2019 01:15:00 AM EST 15 mg Intravenous completed 15 mg, Intrav enous, Once, 06/01/19 at 0115, For 1 dose [facility] Medication administered onsite NaCl infusion 0.9 % 9867-5594-06 06/01/2019 12:30:00 AM EST Intravenous active at 100 mL/hr, Intrav enous, Continuous, Starting 06/01/19 at 0030, For 30 days [facility] Medication administered onsite Ceftriaxone 1000 MG Injection cefTRIAXone (ROCEPHIN) i nfusion 1 g (premix) cefTRIAXone (ROCEPHIN) infusion 1 g (premix) 06/01/2019 12:15:40 AM EST 1 g Intravenous active 1 g, Intraven ous, at 100 mL/hr, Every 24 hours, First dose on 06/01/19 at 0030, For 7 days
Discouraged Uses: Empiric treatment of post-surgical meningitis (ceftazidime preferred)
[facility] Medication administered onsite Metronidazole 5 MG/ML Injectable Solution metroNIDAZOL E (FLAGYL) IVPB 500 mg metroNIDAZOLE (FLAGYL) IVPB 500 mg 06/01/2019 12:15:40 AM EST 50 0 mg Intravenous active 500 mg, Intra venous, Administer over 60 Minutes, Every 8 hours, First dose on 06/01/19 at 0030, For 7 days [facility] Medication administered onsite iohexol (OMNIPAQUE) 300 MG/ML contrast injection 100 mL 1775 0605/31/2019 11:15:00 PM EST 100 mL Given by IV completed 100 mL, Given by IV, 1 TIME IMAGING, 05/31/19 at 2315, For 1 dose [facility] Medication administered onsite Acetaminophen 325 MG Oral Tablet acetaminophen (TYLENO L) tablet 650 mg acetaminophen (TYLENOL) tablet 650 mg 05/31/2019 08:30:00 PM EST 65 0 mg Oral active 650 mg, Oral, E very 6 hours, First dose on 05/31/19 at 2030, For 30 days
Maximum daily dose of acetaminophen is 3,000 mg from all sources in 24 hours.
[facility] Medication administered onsite 1 ML Ketorolac Tromethamine 30 MG/ML Car tridge ketorolac (TORADOL) injection 15 mg ketorolac (TORADOL) injection 15 mg 05/31/2019 08:30:00 PM EST 15 mg Intravenous completed 15 mg, Intrav enous, Once, 05/31/19 at 2030, For 1 dose [facility] Medication administered onsite morphine sulfate (PF) injection 4 mg [id number] 05/31/2019 08:00: 00 PM EST 4 mg Intravenous completed 4 mg, In travenous, Once, 05/31/19 at 2000, For 1 dose [facility] Medication administered onsite Piperacillin 3000 MG / tazobactam 375 MG Injection piperacillin-tazobactam (ZOSYN) IVPB 3.375 g (premix) piperacillin-tazobactam (ZOSYN) IVPB 3.3 75 g (premix) 05/31/2019 07:00:00 PM EST 3.375 g Intravenous com pleted 3.375 g, Intravenous, Administer over 0.5 Hours, Once, 05/31/19 at 1900, For 1 dose [facility] Medication administered onsite Tetrahydrocannabinol 5 MG Oral Capsule dronabinol 5 mg capsule dronabinol 5 mg capsule completed dronabinol 5 M G Oral Capsule [facility] ([facility]) Tetrahydrocannabinol 5 MG Oral Capsule dronabinol 5 mg capsule dronabinol 5 mg capsule completed dronabinol 5 M G Oral Capsule [facility]) Tetrahydrocannabinol 5 MG Oral Capsule dronabinol 5 mg capsule dronabinol 5 mg capsule completed dronabinol 5 M G Oral Capsule [facility] ([facility]) Tetrahydrocannabinol 5 MG Oral Capsule dronabinol 5 mg capsule dronabinol 5 mg capsule completed dronabinol 5 M G Oral Capsule [facility] ([facility]) Insurance Providers Payer name Policy type / Coverage type Policy ID Covered green party ID Covered green party's relationship to murillo Policy Murillo Plan Information [facility] [facility] [facility] [id number] SP [id number] MEDICAID GME [id number] [facility] [id number] S [id number] [facility] [id number] SELF PAY ONLY [id number] SP [id number] SELF PAY ONLY [id number] SP [id number] [facility] [id number] SP [id number] [facility] [facility] [id number] SP [id number] Managed Care [facility] Community Plan P [id number] S [id number] Medicaid S [id number] Managed Care - [facility] Community Plan P [id number] S [id number] [facility] I [id number] Self [id number] [facility] O [id number] S [id number] Managed Care - [facility] Community Plan P [id number] S [id number] [facility] [employer] [id number] SP [id number] MEDICAID [id number] SP [id number] Managed Care - [facility] Community Plan P [id number] S [id number] ANSI-Medicaid [id number] ANSI-Medicaid [id number] ANSI-Medicaid [id number] ANSI-Medicaid [id number] MEDICAID M [id number] UNAVAILABLE UNAVAILA BLE SELF PAY UNAVAILABLE SP UNAVAILA BLE SELF PAY ONLY UNAVAILABLE UNAV AILABLE MEDICAID [id number] SP [id number] Problems, Conditions, and Diagnoses Code Display Name Description Problem Type Effective Dates Data Source(s) V70.0 Encounter for general adult medical exam ination with abnormal findings Encounter for general adult medical examination with abnormal findings 10/21/2019 02:38:37 PM EDT [facility] [id number] Procedure by method Procedure by Method Problem 0 10/21/2019 12:00:00 AM EDT [facility] ([facility]) [id number] Procedure by method Procedure by Method Problem 0 10/21/2019 12:00:00 AM EDT RE[facility]KAH ([facility]) [id number] Procedure by method Procedure by Method Problem 0 10/21/2019 12:00:00 AM EDT RE[facility] ([facility]) [id number] Procedure by method Procedure by Method Problem 0 10/21/2019 12:00:00 AM EDT RE[facility] ([facility]) C18.2 Malignant neoplasm of ascending colon Ma lignant neoplasm of ascending colon 07/17/2019 03:08:27 PM EDT [facility] Z93.3 Colostomy status H/O: colostomy 07/17/2019 03:0 8:27 PM EDT [facility] [id number] Colostomy present Colostomy Present Problem 07/16 12:00:00 AM EDT HAR[facility]Y ([facility]) [id number] Malignant tumor of ascending colon Malignant Rafita or of Ascending Colon Problem 07/17/2019 12:00:00 AM EDT [facility] ([facility]) [id number] Colostomy present Colostomy Present Problem 07/16 12:00:00 AM EDT [facility] ([facility]) [id number] Malignant tumor of ascending colon Malignant Rafita or of Ascending Colon Problem 07/17/2019 12:00:00 AM EDT [facility] ([facility]) [id number] Colostomy present Colostomy Present Problem 07/16 12:00:00 AM EDT [facility] ([facility]) [id number] Malignant tumor of ascending colon Malignant Rafita or of Ascending Colon Problem 07/17/2019 12:00:00 AM EDT [facility] ([facility]) [id number] Colostomy present Colostomy Present Problem 07/16 12:00:00 AM EDT [facility] ([facility]) [id number] Malignant tumor of ascending colon Malignant Rafita or of Ascending Colon Problem 07/17/2019 12:00:00 AM EDT [facility] ([facility]) K65.1 Peritoneal abscess Peritoneal abscess Diagnosis 08:19:05 PM [facility] left ileo psoas abscess and free air left ileo p soas abscess and free air Diagnosis 05/31/2019 06:13:27 PM [facility] Surgeries/Procedures Procedure Description Date Indications Data Source(s) Colonoscopy Thru Stoma Remove Tumor/Polyp/Lesion Snare Techn ique 03/25/2020 12:00:00 AM MICKIE DHILLON ([facility]ana, ) RADIOLOGY REPORT RADIOLOGY REPORT 06/01/2019 1:23 PM EST 06/01/2019 06:23:47 PM [facility] IR IMAGE GUIDED NEEDLE DRAIN PROCEDURE IR IMAGE GUIDED NEED LE DRAIN PROCEDURE STAT 06/01/2019 1:10 PM EST 06/01/2019 06:10:00 PM [facility] BLOOD COUNT COMPLETE AUTOMATED CBC Routine 06/01/2019 5:59 A M EST 06/01/2019 10:59:00 AM [facility] PHOSPHORUS INORGANIC PHOSPHORUS LEVEL Routine 06/01/2019 5:[address] 06/01/2019 10:59:00 AM [facility] MAGNESIUM MAGNESIUM LEVEL Routine 06/01/2019 5:59 AM EST 06/01/2019 10:59:00 AM [facility] BASIC METABOLIC PANEL CALCIUM TOTAL BASIC METABOLIC PANEL Routi ne 06/01/2019 5:59 AM EST 06/01/2019 10:59:00 AM [facility] CT ABDOEN & PELVIS W/CONTRAST MATERIAL CT ABDOMEN PELVIS WI TH CONTRAST [id number] STAT 06/01/2019 12:16 AM EST 06/01/2019 05:16:56 AM [facility] BASIC METABOLIC PANEL CALCIUM IONIZED POCT ISTAT CHEM8 Routine 05/31/2019 7:11 PM EST 06/01/2019 12:11:00 AM [facility] BLOOD GASES ANY COMBINATION PH PCO2 PO2 CO2 HCO3 POCT ISTAT VBG /LAC Routine 05/31/2019 7:07 PM EST 06/01/2019 12:07:00 AM [facility] THROMBOPLASTIN TIME PARTIAL PLASMA/WHOLE BLOOD PARTIA L THROMBOPLASTIN TIME (PTT) STAT 05/31/2019 7:00 PM EST 06/01/2019 12:00 :00 AM [facility] PROTHROMBIN TIME PROTIME INR STAT 05/31/2019 7:00 PM EST 06/01/2019 12:00:00 AM [facility] BLOOD COUNT COMPLETE AUTO&AUTO DIFRNTL WBC COUNT CBC AND DIFFER ENTIAL STAT 05/31/2019 7:00 PM EST 06/01/2019 12:00:00 AM [facility] BLOOD TYPING ABO TYPE AND SCREEN STAT 05/31/2019 7:00 PM EST 06/01/2019 12:00:00 AM [facility] HEPATIC FUNCTION PANEL HEPATIC FUNCTION PANEL A STAT 0 7:00 PM EST 06/01/2019 12:00:00 AM [facility] BASIC METABOLIC PANEL CALCIUM TOTAL BASIC METABOLIC PANEL STAT 05/31/2019 7:00 PM EST 06/01/2019 12:00:00 AM [facility] [facility] EKG ED PHYSICIAN INTERPRETATION EKG ED PHYSICIAN INTERPRETATION Routine 05/31/2019 6:32 PM EST 05/31/2019 11:32:46 PM [facility] EKG 12-LEAD - CMAXX REPORT EKG 12-LEAD - CMAXX REPORT 05/31/2019 6:23 PM EST 05/31/2019 11:23:11 PM [facility] EKG 12-LEAD - CMAXX REPORT EKG 12-LEAD - CMAXX REPORT 05/31/2019 6:23 PM EST 05/31/2019 11:23:11 PM [facility] EKG 12-LEAD EKG 12-LEAD STAT 05/31/2019 6:23 PM EST 05/31/2019 11:23:11 PM [facility] EKG 12-LEAD - CMAXX REPORT EKG 12-LEAD - CMAXX REPORT 05/31/2019 6:23 PM EST 05/31/2019 11:23:00 PM [facility] Results ID Date Data Source [id number] 06/15/2020 04:13:54 PM EST [facility] Name Value Range Interpretation Code Description Data Amarilis rce(s) Supporting Document(s) WBC 9.6 10*3/uL (4.1-11.0) [facility] [place] RBC 2.54 10*6/uL (4.60-6.10) L [facility] HGB 8.2 g/dL (13.5-18.0) L [facility] HCT 24.0 % (41.0-53.0) L [facility] PATIENT TRANSFUSED MCV 94.5 fL (80.0-95.0) [facility] MCH 32.4 pg (27.0-32.0) H [facility] MCHC 34.3 g/dL (32.0-36.0) [facility] RDW 14.8 % (10.5-14.5) H [facility] PLT 260 10*3/uL (150-450) [facility] MPV 6.8 fL (7.1-10.7) L [facility] ID Date Data Source [id number] 06/15/2020 04:28:53 PM EST [facility] CLERICAL CHECK CLERICAL CHEC K OKPRE RXN SPEC DEBORAH NORMALPOST RXN SPEC DEBORAH NORMALTRANSFUSION REACTION SEE SEPARATE TRANSFUSION REACTION REPORT FOR PAT HOLOGIST INTERPRETATION.TESTING SITE PERFORMED AT [address] [place], [place] [address]PATIENT ABO/Rh O POSITIVEDAT, C3 SPECIFIC NEGATIVEPOST RX NAHID NEGATIVE Name Value Range Interpretation Code Description Data Amarilis rce(s) Supporting Document(s) ID Date Data Source [id number] 06/16/2020 02:07:29 AM EST [facility] PATIENT ABO/Rh O POSITIVEANT IBODY SCREEN NEGATIVESPEC EXP DATE 06/18/2020TESTING SITE PERFORMED AT [address] [address] B[address] COMMENT BLOOD TYPE CONFIRMED.UNIT NUMBER [id number] COMPONENT TYPE LEUKOPOOR RED CELLSUNIT DIVISION 00STATUS OF UNIT TRANSFUSEDTRANSFUSION STATUS OK TO TRANSFUSECROSSMATCH RESULT COMPATIBLE Name Value Range Interpretation Code Description Data Amarilis rce(s) Supporting Document(s) TYPE AND CROSSMATCH [facility] PATIENT ABO/Rh O POSITIVE ID Date Data Source [id number] 06/15/2020 07:26:44 AM EST [facility] Name Value Range Interpretation Code Description Data Amarilis rce(s) Supporting Document(s) WBC 9.7 10*3/uL (4.1-11.0) [facility] [place] RBC 2.00 10*6/uL (4.60-6.10) L [facility] HGB 6.7 g/dL (13.5-18.0) LL [facility] RESULT(S) CALLED TO AND READ BACK BYNAZ ALONSO ON 5S AT 0725 ON 06/15/20 [place] [id number] HCT 19.3 % (41.0-53.0) LL [facility] MCV 96.7 fL (80.0-95.0) H [facility] MCH 33.3 pg (27.0-32.0) H [facility] MCHC 34.5 g/dL (32.0-36.0) [facility] RDW 13.7 % (10.5-14.5) [facility] PLT 259 10*3/uL (150-450) [facility] MPV 6.9 fL (7.1-10.7) L [facility] ID Date Data Source [id number] 06/14/2020 07:43:25 AM EST [facility] Name Value Range Interpretation Code Description Data Amarilis rce(s) Supporting Document(s) SODIUM 140 mmol/L (136-145) [facility] POTASSIUM 3.7 mmol/L (3.6-5.2) [facility] CHLORIDE 106 mmol/L (100-108) [facility] CO2 25 mmol/L (22-31) [facility] ANION GAP 9 mmol/L (7-16) [facility] UREA NITROGEN 10 mg/dL (7-24) [facility] CREATININE 0.60 mg/dL (0.80-1.30) L [facility] BUN/CREAT RATIO 16.7 RATIO (10.0-20.0) [facility] GLUCOSE 89 mg/dL (70-99) [facility] CALCIUM 7.8 mg/dL (8.4-10.2) L [facility] GFR >60 ml/min/1.73m2 (>59) [facility] GFR ( AMER) >60 ml/min/1.73m2 (>59) [facility] GFR INTERPRETATION [facility] --NORMAL KIDNEY FUNCTION OR MILD DISEASE - GFR >OR= 60CHRONIC KIDNEY DISEASE - GFR 15 - 59RENAL FAILURE - GFR <15 Est. GFR calculation based on the MDRDstudy equation, which assumes a steadystate for creatinine. Est. GFR should notbe used for medication dosing. ID Date Data Source [id number] 06/14/2020 07:22:07 AM EST [facility] Name Value Range Interpretation Code Description Data Amarilis rce(s) Supporting Document(s) WBC 11.6 10*3/uL (4.1-11.0) H [facility] RBC 2.20 10*6/uL (4.60-6.10) L [facility] HGB 7.1 g/dL (13.5-18.0) L [facility] HCT 21.5 % (41.0-53.0) L [facility] MCV 97.4 fL (80.0-95.0) H [facility] MCH 32.4 pg (27.0-32.0) H [facility] MCHC 33.2 g/dL (32.0-36.0) [facility] RDW 13.6 % (10.5-14.5) [facility] PLT 217 10*3/uL (150-450) [facility] MPV 7.0 fL (7.1-10.7) L [facility] ID Date Data Source [id number] 06/13/2020 07:58:24 AM EST [facility] Name Value Range Interpretation Code Description Data Amarilis rce(s) Supporting Document(s) SODIUM 142 mmol/L (136-145) [facility] POTASSIUM 4.1 mmol/L (3.6-5.2) [facility] CHLORIDE 108 mmol/L (100-108) [facility] CO2 25 mmol/L (22-31) [facility] ANION GAP 9 mmol/L (7-16) [facility] UREA NITROGEN 12 mg/dL (7-24) [facility] CREATININE 0.57 mg/dL (0.80-1.30) L [facility] BUN/CREAT RATIO 21.1 RATIO (10.0-20.0) H [facility] GLUCOSE 82 mg/dL (70-99) [facility] CALCIUM 7.8 mg/dL (8.4-10.2) L [facility] GFR >60 ml/min/1.73m2 (>59) [facility] GFR ( AMER) >60 ml/min/1.73m2 (>59) [facility] GFR INTERPRETATION [facility] --NORMAL KIDNEY FUNCTION OR MILD DISEASE - GFR >OR= 60CHRONIC KIDNEY DISEASE - GFR 15 - 59RENAL FAILURE - GFR <15 Est. GFR calculation based on the MDRDstudy equation, which assumes a steadystate for creatinine. Est. GFR should notbe used for medication dosing. ID Date Data Source [id number] 06/13/2020 07:39:09 AM EST [facility] Name Value Range Interpretation Code Description Data Amarilis rce(s) Supporting Document(s) WBC 13.2 10*3/uL (4.1-11.0) H [facility] RBC 2.15 10*6/uL (4.60-6.10) L [facility] HGB 7.1 g/dL (13.5-18.0) L [facility] HCT 21.2 % (41.0-53.0) L [facility] MCV 98.5 fL (80.0-95.0) H [facility] MCH 33.0 pg (27.0-32.0) H [facility] MCHC 33.5 g/dL (32.0-36.0) [facility] RDW 13.9 % (10.5-14.5) [facility] PLT 170 10*3/uL (150-450) [facility] MPV 7.4 fL (7.1-10.7) [facility] ID Date Data Source [id number] 06/12/2020 08:20:25 AM EST [facility] Name Value Range Interpretation Code Description Data Amarilis rce(s) Supporting Document(s) SODIUM 141 mmol/L (136-145) [facility] POTASSIUM 4.2 mmol/L (3.6-5.2) [facility] CHLORIDE 108 mmol/L (100-108) [facility] CO2 27 mmol/L (22-31) [facility] ANION GAP 6 mmol/L (7-16) L [facility] UREA NITROGEN 15 mg/dL (7-24) [facility] CREATININE 0.91 mg/dL (0.80-1.30) [facility] BUN/CREAT RATIO 16.5 RATIO (10.0-20.0) [facility] GLUCOSE 98 mg/dL (70-99) [facility] CALCIUM 7.5 mg/dL (8.4-10.2) L [facility] GFR >60 ml/min/1.73m2 (>59) [facility] GFR ( AMER) >60 ml/min/1.73m2 (>59) [facility] GFR INTERPRETATION [facility] --NORMAL KIDNEY FUNCTION OR MILD DISEASE - GFR >OR= 60CHRONIC KIDNEY DISEASE - GFR 15 - 59RENAL FAILURE - GFR <15 Est. GFR calculation based on the MDRDstudy equation, which assumes a steadystate for creatinine. Est. GFR should notbe used for medication dosing. ID Date Data Source [id number] 06/12/2020 08:20:25 AM EST [facility] Name Value Range Interpretation Code Description Data Amarilis rce(s) Supporting Document(s) PHOSPHORUS 3.3 mg/dL (2.5-4.5) [facility] ID Date Data Source [id number] 06/12/2020 08:20:25 AM EST [facility] Name Value Range Interpretation Code Description Data Amarilis rce(s) Supporting Document(s) MAGNESIUM 1.7 mg/dL (1.7-2.4) [facility] ID Date Data Source [id number] 06/12/2020 07:50:13 AM EST [facility] Name Value Range Interpretation Code Description Data Amarilis rce(s) Supporting Document(s) WBC 14.0 10*3/uL (4.1-11.0) H [facility] RBC 2.82 10*6/uL (4.60-6.10) L [facility] HGB 9.5 g/dL (13.5-18.0) L [facility] HCT 27.7 % (41.0-53.0) L [facility] MCV 98.4 fL (80.0-95.0) H [facility] MCH 33.6 pg (27.0-32.0) H [facility] MCHC 34.2 g/dL (32.0-36.0) [facility] RDW 13.6 % (10.5-14.5) [facility] PLT 191 10*3/uL (150-450) [facility] MPV 7.7 fL (7.1-10.7) [facility] ID Date Data Source [id number] 06/19/2020 01:00:46 AM EST [facility] [place], [place] [address]Tel# SURGICAL PATHOLOGY REPORTPatient Name:EVERTON STEPHENSON:1975Received:06/11/2020ccession #:[id number](s) [...] By Gali White D.O. jzwPathology Associates of [address] [place], [place] [address]Technical component performed at [facility], Histopathology, [address] [place] [address], [address].Reported at [facility], [address] [place] [address], Formerly [facility], [facility].This report may include immunohistochemical or in-situ hybridizationresults. Testing was developed and the performance characteristicsdetermined by [facility], as required byCLIA '88. The FDA has determined that approval for specific use is notnecessary for clinical use. The quality of Hematoxylin and Eosin stainsand as applicable, for all immunohistochemical and/or special stains,including positive and negative controls, were reviewed and consideredappropriate.ICD codes: Z85.050GUR4 codes: A: 00890MA: 93270SO: 52364JS: 78676BJ: 63625NT: 64921I Name Value Range Interpretation Code Description Data Amarilis rce(s) Supporting Document(s) ID Date Data Source [id number] 06/14/2020 04:05:00 PM [place], [place] [address]PATIENT NAME: EVERTON STEPHENSONDATE OF : 1975REPORT: OPERATIONPATIENT NUMBER: [id number] STATUS: IPMEDICAL RECORD NUMBER: [id number] OF ADMISSION: 1DATE OF DISCHARGE:ROOM: 01DATE OF [...] We then went to try to do ffgrq-zv-abf anastomosis, but the circular stapler could not be passed fromthe anus all the way to the end adequately or even fine enough to do [id number]-[id number]. Therefore, we cleansed the Anyi's pouch once [...] BEATRIZ Nassarictated: 06/11/2020 11:58DT: 06/11/2020 14:00Job #: [id number]: Abisai AlvarengaNOTE: [facility] computer generated reports are not confirmed orauthenticated unless they are signed by the providerElectronically Authenticated and Edited by:SHERRY HENDERSON MD On 06/14/2020 04:05 PM EST Name Value Range Interpretation Code Description Data Amarilis rce(s) Supporting Document(s) ID Date Data Source [id number] 06/15/2020 05:19:50 AM EST [facility] SPEC EXP DATE 06/14/2020TEST ING SITE PERFORMED AT [address] [place] [id number] NUMBER [id number] COMPONENT TYPE LEUKOPOOR RED CELLSUNIT DIVISION 00STATUS OF UNIT REL FROM ALLOCTRANSFUSION STATUS OK TO TRANSFUSECROSSMATCH RESULT COMPATIBLE Name Value Range Interpretation Code Description Data Amarilis rce(s) Supporting Document(s) ID Date Data Source [id number] 06/09/2020 12:00:00 AM EST [facility] Name Value Range Interpretation Code Description Data Amarilis rce(s) Supporting Document(s) SARS-CoV-2 (COVID-19) RNA [Presence] in Respiratory specimen by AGUSTIN with probe detection Not Detected [facility] This lab was ordered by [facility] and reported by [employer]. ID Date Data Source [id number] 06/07/2020 03:33:02 PM EST [facility] SPEC EXP DATE 1PATI ENT ABO/Rh O POSITIVEANTIBODY SCREEN NEGATIVETESTING SITE PERFORMED AT [address] [place] [address] Name Value Range Interpretation Code Description Data Amarilis rce(s) Supporting Document(s) TYPE AND SCREEN [facility] PATIENT ABO/Rh O POSITIVE ID Date Data Source [id number] 06/07/2020 02:39:11 PM EST [facility] Name Value Range Interpretation Code Description Data Amarilis rce(s) Supporting Document(s) SODIUM 142 mmol/L (136-145) [facility] POTASSIUM 4.4 mmol/L (3.6-5.2) [facility] CHLORIDE 106 mmol/L (100-108) [facility] CO2 30 mmol/L (22-31) [facility] ANION GAP 6 mmol/L (7-16) L [facility] UREA NITROGEN 12 mg/dL (7-24) [facility] CREATININE 0.86 mg/dL (0.80-1.30) [facility] BUN/CREAT RATIO 14.0 RATIO (10.0-20.0) [facility] GLUCOSE 92 mg/dL (70-99) [facility] CALCIUM 9.6 mg/dL (8.4-10.2) [facility] GFR >60 ml/min/1.73m2 (>59) [facility] GFR ( AMER) >60 ml/min/1.73m2 (>59) [facility] GFR INTERPRETATION [facility] --NORMAL KIDNEY FUNCTION OR MILD DISEASE - GFR >OR= 60CHRONIC KIDNEY DISEASE - GFR 15 - 59RENAL FAILURE - GFR <15 Est. GFR calculation based on the MDRDstudy equation, which assumes a steadystate for creatinine. Est. GFR should notbe used for medication dosing. ID Date Data Source [id number] 06/07/2020 02:21:02 PM EST [facility] Name Value Range Interpretation Code Description Data Amarilis rce(s) Supporting Document(s) WBC 8.7 10*3/uL (4.1-11.0) [facility] [place] RBC 4.52 10*6/uL (4.60-6.10) L [facility] HGB 15.1 g/dL (13.5-18.0) [facility] HCT 44.0 % (41.0-53.0) [facility] PERFORMED AT [address] [place] [address] MCV 97.2 fL (80.0-95.0) H [facility] MCH 33.3 pg (27.0-32.0) H [facility] MCHC 34.3 g/dL (32.0-36.0) [facility] RDW 13.7 % (10.5-14.5) [facility] PLT 250 10*3/uL (150-450) [facility] MPV 6.7 fL (7.1-10.7) L [facility] ID Date Data Source [id number] 06/05/2020 12:00:00 AM [facility] Value Range Interpretation Code Description Data Amarilis rce(s) Supporting Document(s) SARS-CoV-2 (COVID-19) RNA [Presence] in Respiratory specimen by AGUSTIN with probe detection Not Detected [facility] This lab was ordered by [facility] and reported by [employer]. ID Date Data Source [id number] 05/03/2020 12:00:00 AM EST [facility] Name Value Range Interpretation Code Description Data Maarilis rce(s) Supporting Document(s) SARS-CoV-2 (COVID-19) RNA [Presence] in Respiratory specimen by AGUSTIN with probe detection [facility] This lab was ordered by [facility] and reported by [employer]. ID Date Data Source [id number] 04/28/2020 09:20:00 AM EST [facility] ([facility]) Name Value Range Interpretation Code Description Data Amarilis rce(s) Supporting Document(s) barbiturates screen, blood negative cutoff:0.1 normal B arbiturates Screen, Blood [facility]) amphetamines screen, blood negative cutoff:50 normal Amphetami binu Screen, Blood [facility]) cannabinoid screen, blood ++positive++ cutoff:5 Abnorm al (applies to non-numeric results) Cannabinoid Screen, Blood [facility] ([facility]) cocaine + metab. screen, blood negative cutoff:25 normal Cocaine + Metab. Screen, Blood [facility]) opiates screen, blood negative cutoff:5 normal Opiates Screen , Blood [facility]) benzodiazepines screen, blood negative cutoff:20 normal Benzodiazepines Screen, Blood [facility]) phencyclidine screen, blood negative cutoff:8 normal Phencyclidine Screen, Blood [facility] ([facility]) oxycodone screen negative cutoff:5 normal Oxycodone Screen AT [facility]) cannabinoid confirmation positive . normal Cannabinoid Confirmation [facility]) tetrahydrocannabinol(THC) 19.8 NG/mL . normal tetrahydro cannabinol(THC) [facility]) carboxy-THC 42.2 NG/mL . normal Carboxy-thc [facility]) cannabinol negative . normal Cannabinol [facility]) hydroxy-THC 4.7 NG/mL . normal Hydroxy-thc [facility] ([facility]) cannabidiol negative . normal Cannabidiol [facility] ([facility]) ID Date Data Source [id number] 03/25/2020 12:06:00 PM EST [facility] ([facility], ) Name Value Range Interpretation Code Description Data Amarilis rce(s) Supporting Document(s) Surgical pathology study Laboratory test result [facility] ([facility], ) FINAL DIAGNOSIS Colon, polyp, polypectomy: Tubular adenoma. 03/26/2020 - 0 CLINICAL DIAGNOSIS Colon cancer 03/25/2020 - 152 GROSS DIAGNOSIS Received in formalin labeled "snare colon polyp" is one fragment of hennessy tissue, 0.3 x 0.3 x 0.2 cm. All in one. -SV 03/25/20201522 Signed ALYSIA QUINTANILLA MD 03/26/2020 1221 ID Date Data Source [id number] 03/20/2020 09:20:00 AM EST [facility] Name Value Range Interpretation Code Description Data Amarilis rce(s) Supporting Document(s) SARS coronavirus 2 RNA [facility] This lab was ordered by [facility] and reported by [facility]. ID Date Data Source [id number] 11/24/2019 10:27:38 AM EDT [facility] Measurements & CalculationsHeight: 69 inches [...] (ER) or urgent care clinic? No - [facility] Emergency room (ER) or urgent [...] of work until December 14 but apparently [facility] has told him that they will not [...] & Plan Problems:Assessed:Malignant neoplasm of ascending colon (OAE47-P43.2) Assessment: Instructions: Offered to extend disability for [...] ElectronicOrders:Adult - Ofc Vst, EST, Level III [CPT-05557] Medications:IBUPROFEN 800 MG ORAL TABLET (IBUPROFEN) One po q6h prn pain. MDD 4. #60[Tablet] x 0 Route:ORAL Entered and Authorized by: Daniel Henderson MD Method used: Electronically to [facility]* (retail) [address] [facility] [address] [place] [address] Note to Pharmacy: Route: ORAL; RxID: [id number] signed by Daniel Henderson MD on 11/24/2019 at 11:26 AM Name Value Range Interpretation Code Description Data Amarilis rce(s) Supporting Document(s) ID Date Data Source [id number] 10/21/2019 01:46:48 PM EDT [facility] Measurements & CalculationsHeight: 69 inches [...] (ER) or urgent care clinic? No - [facility] Emergency room (ER) or urgent [...] during this visit, including review of any yeko-ebl-bribqot medications, herbal therapies, and/or supplements.Allergy ReviewAllergy List [...] care.Diet and exercise.Assessed:Malignant neoplasm of ascending colon (NFF73-N45.2) Assessment: Instructions: Recheck with cancer specialists and surgeons as scheduled.Opioid abuse with other opioid-induced disorder (JVI30-I41.188) Assessment: Instructions: Doing well.Continue current dose of [...] FILM-One film once daily. MDD 1. VERENA [id number] ICD10 F11.10 Qty: 30[Film] Refills: 0 Method: ElectronicAllergies:No Known Allergies (updated 11/27/2018) Orders:Other Lab [[id number]] Adult - Ofc Vst, EST, Level III [CPT-93441] Follow-Up Return to clinic: 1 month. for follow upMedications:SUBOXONE 8-2 MG SUBLINGUAL FILM (BUPRENORPHINE HCL-NALOXONE HCL) One film once daily. MDD 1. VERENA [id number] ICD10 F11.10 #30[F ilm] x 0 Entered and Authorized by: Daniel Henderson MD Method used: Electronically to [facility]* (retail) [address] [facility] [place] [address] Fax: RxID: [id number] signed by Daniel Henderson MD on 10/21/2019 [...] rce(s) Supporting Document(s) ID Date Data Source [id number] 07/17/2019 02:51:10 PM EDT [facility] Measurements & CalculationsHeight: 69 inches [...] 17, 2019 2:58 PMInitial Intake Information from: [facility] #: 15Smoking, Tobacco, Vaping or Smoke [...] & Plan Problems:Added: H/O: colostomy (ICD- V44.3) (CJV44-M61.3)Malignant neoplasm of ascending colon (ICD10- C18.2)Assessment not SavedOpioid abuse with other opioid-induced disorder (ICD1 0-F11.188): ] Assess ment & Plan Orders:Adult - Ofc Vst, EST, Level III [CPT-61611] Name Value Range Interpretation Code Description Data Amarilis rce(s) Supporting Document(s) ID Date Data Source [id number] 06/03/2019 04:21:19 PM EST [facility] Name Value Range Interpretation Code Description Data Amarilis rce(s) Supporting Document(s) Discharge Summary [facility] GJVLKf1mWvHHJwVx36/RMAqrVVUdr7MuMEvfOWh6MUtnAXCfH7MgTXJ0cT2iTBI1FIsADoGyGfVzYUJ8 lbm [file] E+DQogICAgICAgICAgICAgICAgICAgICAgICAgICAgICAgICAgICAgICAgICAgICAgICAgICAgICAgIC AgICAgICAgICAgICAgICAgICAgICAgICAgICAgICAgICAgICAgICAgICAgDQogICAgICAgICAgICAgIC AgICAgICAgICAgICAgICAgICAgICAgICAgICAgICAg ICAgICAgICAgICAgICAgICAgICAgICAgICAgICAgICAgICAgICAgICAgICAgICAgICAgICAgDQogICAg ICAgICAgICAgICAgICAgICAgICAgICAgICAgICAgICAgICAgICAgICAgICAgICAgICAgICAgICAgICAg ICAgICAgICAgICAgICAgICAgICAgICAgICAgICAgIC AgICAgDQogICAgICAgICAgICAgICAgICAgICAgICAgICAgICAgICAgICAgICAgICAgICAgICAgICAgIC AgICAgICAgICAgICAgICAgICAgICAgICAgICAgICAgICAgICAgICAgICAgICAgDQogICAgICAgICAgIC AgICAgICAgICAgICAgICAgICAgICAgICAgICAgICAg ICAgICAgICAgICAgICAgICAgICAgICAgICAgICAgICAgICAgICAgICAgICAgICAgICAgICAgICAgDQog ICAgICAgICAgICAgICAgICAgICAgICAgICAgICAgICAgICAgICAgICAgICAgICAgICAgICAgICAgICAg ICAgICAgICAgICAgICAgICAgICAgICAgICAgICAgIC AgICAgICAgDQogICAgICAgICAgICAgICAgICAgICAgICAgICAgICAgICAgICAgICAgICAgICAgICAgIC AgICAgICAgICAgICAgICAgICAgICAgICAgICAgICAgICAgICAgICAgICAgICAgICAgDQogICAgICAgIC AgICAgICAgICAgICAgICAgICAgICAgICAgICAgICAg ICAgICAgICAgICAgICAgICAgICAgICAgICAgICAgICAgICAgICAgICAgICAgICAgICAgICAgICAgICAg DQogICAgICAgICAgICAgICAgICAgICAgICAgICAgICAgICAgICAgICAgICAgICAgICAgICAgICAgICAg ICAgICAgICAgICAgICAgICAgICAgICAgICAgICAgIC AgICAgICAgICAgDQogICAgICAgICAgICAgICAgICAgICAgICAgICAgICAgICAgICAgICAgICAgICAgIC YoZDWwIVApIVHeQELwFOZbPYDkOPYcZHJhRFMhLJScRWGfQQYjLWKyRBBrSGBgVGMpFEGwLCz3O9kyFR QmRMQzTE2dASb6Gw1+JUwLLgQkHWY7lgXuoA2IQE8t j4UoVLjdVGZkk8LkEUr7WL0ZNFThQXfqNC3MHBtqax3GIJJbNKIupHURa4uqNuUhLCO0DDGjHvgeJN2A TKGsN2rrfzGqNFDfXJNRILqkLLLAGBniTCAPNYClVHLbVnJyOKjdDI3Se7LbbHM1FLj+Ts2UTK2qh8Bj RUbmQqOkEA1avl1LFYgKZtChF6VwglP0KHX6IODtVc 5QZERoGEJzuBDjXuWxPPGPKlWhC4VcnQ63BOAZTg9+YFebbxFoFrmUOaF1ZIIsk8OiXIw5BB4NFZRmOI p7wRGsGItuD5eqeaizNIA5vQ1ljuapDqjdIUrlVQ5cRBLDeXazDGY6JXH2OWvyAZFkAYTiPV9tCk6vPK FjJMM7VcP0BSXJON8LDISvKXDwjTGqHIKiZHTXHY9G UDgfCUR6LNSluhXwdFHzLBmpVK5SIRZmxnIfRvHiIHTYTKq+Vn0SMZ5xa6TlCRyiLCBuLP1ijy6EHMfL SkGxT1W1bGWtL0O7CEcrEx2JULHdIMLrPwLaBDYAAIijBL7UGA1lqyN3DB1VpDGnMJUlXYOtyETnMAg2 P44jwHEuSLrnKI1UFKL+Naomy+Wi2GCJTyJRNtJYCgQn ZmZJNEKjTfD1HoF0TCj2UaI1BsWE86nScdrjEoCXrmYF7SAD7fJCMaEKXAOC3FaKPuzT3dhbRzGuAxXA SJAsPeA46zhJAbIEDvDRR5YFGlNk3RBHPaU6HlkzRftUqfxqZqHMQlTZFWNY9OHPzsgwTpsERyrDtqLY 08yZshZF9FMw7EBbVgEE8bjy9RlAXiFe9UVZXfMJ8R JDIiXVCkDHUvDSC2XNKcJyTrADzrVRIgNHKhAKP2GRNwGXTsLE9BDcHqOEPvVVv8KLBiLVGwJHKmvw4Y DGDsPRImCKHwQUNsBSRwHJPsPExiZZUtQQXvABF8UKMpQGLlQB5XBpVmGPNqJCCnOBWgMWAuNACjdj6D YDTgXEArIQG5DCBzZBXjKERkQIjvOPAhGUI6JQP0GZ RuETClUW3LBxTeBVKkVLuwOwDiDMYxGHQaik3NYCGtZEIpCFDnNTYoBKRjXPNwTYkhPVVeGHSkGDZ2NX RuOYHyXZ3XTgHrWCQkKCBbVfbjAICaQWOlkp2TNBMrQMPbXcZ6ZHLzLDNcWIWoTDjlFFHfJVC2ARA8IR CgLDNvUM5TRcWvBSZnYTC9GOXnBGAgZKBadk8IGXVr LOVtKNo8GFQaZNYdRXXzNGgzNVLmKGL4VuI8NCOuVQTyTE8YXaXzAPYsYGK3YOFeQTTzWPZrhx5NROXc EGCgRzAjXKViYMYpQNUgNCjpZVEcUNO5QBy6LEIuOSKlAN3EHtIhNCMuIFgyFYIgOWEmMGUang8TPCTi SBWnFfB4XQGwLHOaWHWiUFutOUNcQFW4OVT2EEMnMS CgVO0SMnUzLAJhLMn2IdwuQBRgWWZrjv5IBGMgFXVhJPbuHRRzOGVjLUJbRZqpNNMdSWG2AeI4JQTsQJ CsRJ9JOsOlHCLoDtV4WiEiLWSxLWXkqy3UHXAvXMKlZOc5TrRjORScLJRhYLbbBCReSJTtWNB9JBTeCZ DfVF2CPnKwZItaPKHRYsb7NRleR6v8UFFsHP8MT1Sg v1JdModwJCMWVIibCH4thxWmZRZzDq1UH4hOAkpnVeYqGVPpPVbxALK6PDTdI5EfLoC7UAvnIVElW5Ua OV8jFJUnXVOsEJOeLBQmAsHiMJPuRdGbMgc1K3RfESMrNqU4YqIhUU3IDr8FRfZ4OXM1zXQmVk8NUiOi DRgCPeYeMJ6GENv= ID Date Data Source [id number] 06/02/2019 10:47:14 AM [facility] Name Value Range Interpretation Code Description Data Amarilis rce(s) Supporting Document(s) Consultation [facility] IULDEr9lYnNNAsOa82/UDBbbDXJhd8GyYTseTVi1DAklNDKkO1LbGYF6bV5vWYL2JGjACcJlWdMdHIM6 lbm MgDgiYNvPdPULwZvePLsLbHMkvCzcnmNZnAN2EtCW7UAApD97rEAHjUDMkG3FzEUBcNIf+Vj7RLFTqmG YuRO7CHcwR1Kyic6k6TU8tAY2JFipbv53xlkkEYTL40FONz55vJW5nSdDUyXoZCac3EYlESq350PFuyV bqcfwkloPadKJ4O2V3cAiDF4XwVyG//6pBYoMgUMX/ 6epTexpsVz35X1uqjLTLw/ZJ8guTMKBDYXKS/MvEVzcpmnsws4TNsslww5mgbdnxjNZ3iDE30Qv31NH5 fpKDQOJzx6pDHwBXaf/33iihSYnzreL0/8en5tpw3hT4wyybJF6MmZ3Ph2gwbXCiniAsGgJxzkFKqJ5x ValqChh4GbnttpKuZRdu5Y1h3xm7qH4bmqDIidvbS1 Upyz/lSfKNXprcI2Z5hl8XAkLQ1uH0e3WVhEZNl4Iow8/InEctgS7Gj4bblfk7k4KoQxdgtHd+KAxn2Z 9lEQZxYbygToxqYm/NT2fzlIWkUxIh7m2N0Ff8vc4Qd7JfqeSdqM85Xc+lqLj0gsiSlOTftAn/cSQ3Fc /hY4LPOgCZKEFBp8/hqb7zAJ8nkxytB2lVV4ZwwdbY dE61Y1GmKhuiOG8WNTmZemoC6QdmadddDDGROO1u94xNn1CqggkJsqzATHr3dqrTzgbDeSy5d32Ikmiz pMvePm8rWsvt6tEbJwE1PX8/bAm2MnqZKweTJo08/cpWeW7P2dobZ9dCtX2mPp1YqEOjQR4lcRzFdD8p R85J57O5wCm22qRihs9g9SA56dQOQ2fHM2ZC/Cd10Y [file] ICAgICAgICAgICAgICAgICAgICAgICAgICAgICAgICAgICAgICAgICAgICAgICAgICAgICAgICAgICAg ICAgICANCiAgICAgICAgICAgICAgICAgICAgICAgIC AgICAgICAgICAgICAgICAgICAgICAgICAgICAgICAgICAgICAgICAgICAgICAgICAgICAgICAgICAgIC AgICAgICAgICAgICAgICANCiAgICAgICAgICAgICAgICAgICAgICAgICAgICAgICAgICAgICAgICAgIC AgICAgICAgICAgICAgICAgICAgICAgICAgICAgICAg ICAgICAgICAgICAgICAgICAgICAgICAgICANCiAgICAgICAgICAgICAgICAgICAgICAgICAgICAgICAg ICAgICAgICAgICAgICAgICAgICAgICAgICAgICAgICAgICAgICAgICAgICAgICAgICAgICAgICAgICAg ICAgICAgICANCiAgICAgICAgICAgICAgICAgICAgIC AgICAgICAgICAgICAgICAgICAgICAgICAgICAgICAgICAgICAgICAgICAgICAgICAgICAgICAgICAgIC AgICAgICAgICAgICAgICAgICANCiAgICAgICAgICAgICAgICAgICAgICAgICAgICAgICAgICAgICAgIC AgICAgICAgICAgICAgICAgICAgICAgICAgICAgICAg ICAgICAgICAgICAgICAgICAgICAgICAgICAgICANCiAgICAgICAgICAgICAgICAgICAgICAgICAgICAg ICAgICAgICAgICAgICAgICAgICAgICAgICAgICAgICAgICAgICAgICAgICAgICAgICAgICAgICAgICAg ICAgICAgICAgICANCiAgICAgICAgICAgICAgICAgIC AgICAgICAgICAgICAgICAgICAgICAgICAgICAgICAgICAgICAgICAgICAgICAgICAgICAgICAgICAgIC AgICAgICAgICAgICAgICAgICAgICANCiAgICAgICAgICAgICAgICAgICAgICAgICAgICAgICAgICAgIC AgICAgICAgICAgICAgICAgICAgICAgICAgICAgICAg ICAgICAgICAgICAgICAgICAgICAgICAgICAgICAgICANCiAgICAgICAgICAgICAgICAgICAgICAgICAg ICAgICAgICAgICAgICAgICAgICAgICAgICAgICAgICAgICAgICAgICAgICAgICAgICAgICAgICAgICAg ICAgICAgICAgICAgICANCjw/aNDkZ9licYLxsmF3L7 elDl7BWy9SWA7ls3ExUSLhMHesdxVgXwlXZzOzILIkQbsYDuq7QCjmFK6IfLKeZ9MsG2RlDYcuXF1SFH VfNNSseUEuIAMdYIYjEuZ9HMZfUStnAY4DmKXgBSjpJRUbMWLsWzLaDDZbQC1ZSJRmA059kdAjGb5OFz 9OVbEtJZ6erq1YVOjgLATbSxzKXoy5ZFxhGX8NeJDh yUSrNOIfCYQTAuEaA4jva8YrPbSxVHRKIJoxCJ5Xf0VmuXExTIm+Re1MYT2ts2JhWOwzWAUtQD0kum2F CScDSjFkJ6CtgEpzBSLievX1yGXpKPP3LJD2PVRpBJYwGPCvpX5vixEoEL1UQvDjGSXcJZ0vDv0bBQIe STV1WrC0STUXBI8FZHXmVNWbbBRuRAOrZLWKGU5VPP arOLO5QFMriiOmsZAeGJmtDW1EJXFennHiDWpjOQIWOZr+Oa2IPG6nt9ZnXVdyXNKhMU7fre1JXXpCXl JxJ3U6sGFhI8C1OHfeQx8UGFPaMXYcKVukVWEJREdzEE7XIE9rncQ8PP4JkOVlGMAeRPRxgXWdNDe2Y8 3neFLzGYynDY8MVZB+Naomy+Yd6NRTQyQKTpAUEnVoMr MCDAAoNpG1CkV8GWs4AnP8NeWT96mUnlltWxKQafZC9FLE3xYKPuRXUGZQ1HeJGfxS2ccaNqZUIwUSCH JyLoB83izLIeFPHsNFX6CNRmJi9KCRBkX6IijfAunXkhkvFgCORyZZYSBX6IVTdwutYacSTrgQldYY17 wShgUV6QBc4GOmOhMX0qso9UvHPsQo5UDMWjLt1KBN WlWVFzHTGmWGT3VCRnZpLxLDqjGDIqQQSkRZJ9DFFnGWFmOR2UNoDfXYWbJWM9PWcqGUNfBULmfs3TPU WsVCJaAiR3SRQlCKXpCZWgJMhtHIAjZPFhVHP8MFHdXHQiMS2BLsHdEIUpDXPhHPnmOPLfHXRblt2NAV VbLBBfUeF7GGDyUUMjZRLuPBdhLZHpPBD8CkQ4ZASc PGPiCA5ISlJoNLGePVD5DWJvMFFyMNXjfd8SJWRoLNQcJzN0BTUkUUQxUQXmYTkzXNQvHGC9SlP9QHNg CROlNI8JEqJoDJNhXQt5TNByHGIpMCVozw4RBNYmZSWoWArsAQIxNXRmWYRuGZpvNWOcVIU1RVE8YAFg QXUbNL1YXjQpHRHeJPxuFCSbIUCyXBGdxs4GOBVdRP GwZSW0JUEnIELkSPPcVYuiXDObAAXqDiNcWQLqVKIfOI6COeGrWBNmYRG7BuMaLBRzCRXdxu4ZWTRqPP TfYGz4LPDvNBPfXMCpZKphQQWwFXIuMUBxKMLoCATcHX3ZQzCmSSBiBLS4EcYxGIIqHUCxuu2OEBZmVF DaGlGsAIIdSJFxOWClRSu8ohTwbAWkAYt6MA5LS5Lo htDbZlSECb6Wh561VHGdHIZkAf4LW5opSg3vLLKfFIUYEv3XUIa2I3NxUqbnQOOxKiHtAJF2GoH1LsUp QdUiYgw2QSV9YvM+THt5VVX8RYX2CNFfJHK2XHsxPDTpEwXsYMQcSLzsFzIcJu6kXRZTXj3+DQpzdGFy vSmhDYYEFlNlAIE2QNknJAPWAg6E ID Date Data Source [id number] 06/02/2019 10:11:53 AM EST [facility] Name Value Range Interpretation Code Description Data Amarilis rce(s) Supporting Document(s) ED Provider Note [facility] FHXKBc3jHlNVVeGm99/XBZgyKVXba5XeSPcgYIo7OTlrNDTiH5FbKZG5aS9pOIT5LRdQXkCzZbUlVXJ9 lbm [file] cardiology tech+AVTawWAeQXYdDxcXbeCo8zF5giCCqwI13UI0hV [file] [id number] ID Date Data Source [id number] 06/02/2019 09:25:13 AM [facility] IR IMAGE GUIDED NEEDLE DRAIN PROCEDUREFI NAL [...] injection with 2% lidocaine, for single step nrpe-nue-jftppk technique placement of a 12 [place]izean resolve pigtail drainage catheter into this collection [...] and uncomplicated ultrasound-guided left pelvic abscess 12 Belizean drain placement with sample sent.This document has been electronically signed by Gio Valles MD on 06/02/2019 9:22 AM Name Value Range Interpretation Code Description Data Amarilis rce(s) Supporting Document(s) ID Date Data Source [id number] 06/02/2019 08:38:17 AM [facility] Name Value Range Interpretation Code Description Data Amarilis rce(s) Supporting Document(s) [facility] GBTTFs5kIrGVPzEe31/CVFehQLSol2JjWIurIZy2JSpqIQZvV6CbNAQ5tE9wNSL9ADjCQbKmThVkPXA1 lbm [file] lcMVNINhb3YTiVOzYhJO2DGDb= ID Date Data Source [id number] 06/02/2019 09:54:50 AM [facility] Service Cmnt XXX-Imp : Gram Stn XXX : 2W BC'S Seen.2Gram-positive coccusin sxyce8Xdql-qrrhlova bacillus (organism)Microorganism XXX Cult : 4Escherichia coli (organism)Organism of questionable significance. No further workup er9Wplsnzxgtdlmy anginosus Name Value Range Interpretation Code Description Data Amarilis rce(s) Supporting Document(s) ID Date Data Source [id number] 06/01/2019 06:20:06 AM [facility] Name Value Range Interpretation Code Description Data Amarilis rce(s) Supporting Document(s) Leukocytes [#/volume] in Blood by Automated count 13.7 10*3/uL 4-10 [facility] Erythrocytes [#/volume] in Blood by Automated count 3.45 10*6/uL 4.6- 6.1 [facility] Hemoglobin [Mass/volume] in Blood 10.3 g/dL 13.5-18 L [facility] Hematocrit [Volume Fraction] of Blood by Automated count 30.6 % 4 1-53 [facility] Erythrocyte mean corpuscular volume [Entitic volume] by Auto mated count 88.8 fL 80-96 [facility] Erythrocyte mean corpuscular hemoglobin [Entitic mass] by Automated count 29.8 pg 27-33 [facility] Erythrocyte mean corpuscular hemoglobin concentration [Mass/volume] by Automated count 33.5 g/dL 32.0-36.0 [facility] distribution width [Ratio] by Automated count 14.2 % 11.5-14.5 [facility] Platelets [#/volume] in Blood by Automated count 969 10*3/uL 150-400 H [facility] ID Date Data Source [id number] 06/01/2019 07:04:07 AM [facility] Name Value Range Interpretation Code Description Data Amarilis rce(s) Supporting Document(s) Bicarbonate [Moles/volume] in Serum 23 mmol/L 22-29 [facility] Chloride [Moles/volume] in Serum or Plasma 102 mmol/L 98-107 [facility] Creatinine [Mass/volume] in Serum or Plasma 0.60 mg/dL 0.70-1.20 [facility] Glucose [Mass/volume] in Serum or Plasma 88 mg/dL 70-140 [facility] Potassium [Moles/volume] in Serum or Plasma 4.0 mmol/L 3.4-5.1 [facility] Sodium [Moles/volume] in Serum or Plasma 140 mmol/L 136-145 [facility] Urea nitrogen [Mass/volume] in Serum or Plasma 9 mg/dL 6-20 [facility] Anion gap 3 in Serum or Plasma 15 mmol/L 8-15 [facility] Osmolality of Serum or Plasma by calculation 288 mosm/kg 275-300 [facility] Creatinine/Urea nitrogen [Mass Ratio] in Serum or Plasma 15 [facility] Calcium [Mass/volume] in Serum or Plasma 8.3 mg/dL 8.6-10.0 L [facility] Glomerular filtration rate/1.73 sq M pre dicted among non-blacks [Volume Rate/Area] in Serum or Plasma by Creatinine-based formula (MDRD) >6 0 [facility] Glomerular filtration rate/1.73 sq M pre dicted among blacks [Volume Rate/Area] in Serum or Plasma by Creatinine-based formula (MDRD) >60 [facility] ID Date Data Source [id number] 06/01/2019 07:04:07 AM [facility] Name Value Range Interpretation Code Description Data Amarilis rce(s) Supporting Document(s) Magnesium [Mass/volume] in Serum or Plasma 1.8 mg/dL 1.6-2.6 [facility] ID Date Data Source [id number] 06/01/2019 07:04:07 AM [facility] Name Value Range Interpretation Code Description Data Amarilis rce(s) Supporting Document(s) Phosphate [Mass/volume] in Serum or Plasma 2.8 mg/dL 2.5-4.5 [facility] ID Date Data Source [id number] 06/01/2019 12:28:17 AM [facility] CT ABDOMEN PELVIS WITH CONTRAST [id number] AL RESULTInterpreted by:Russ Sanchez, MDPROCEDURE INFORMATION: Exam: [...] rce(s) Supporting Document(s) ID Date Data Source [id number] 05/31/2019 09:34:12 PM 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 analyst 0I/+NMZ6v/tXQIvxUe9x/MtTOVB1GSCOD4477pjHK1BzZcp6fkmkWRIUQWKDD6wn8TO9A06szm5itlvu JZ6nKZlo6o6ya0216CihKUKhnGK9GMXhG0slMdtIS99FCjaiWn2c1vhkw+svkKktW58GMITnhVH7aXpU QMWGiXLtY7tcqEX6A6mDVa4qpTTZ3pXfPJAzZ/qBXx n0sIGID1N4935bkleJJRK2RTcPGaxV7wbGJdOYvVj8LHTt1GIKEEGkngzdd83desoM3wkAPrQfgUViWW cRg5kVwX541lm/u+utq4jbwmuz+AqMOWRqbPioc193wW827PqPMzeQVSnxORV9HpM1+BBNh4174iGLQQ 64cPzlQEqzQPmUkmCs4x/xrfZV7rdZcPNyBKunsYwP bDOBlJGQZ5vKSi451v70pnhPKjVP7O3Yg95hrLeMiKPbotNsdf643CmKF+B9FdBg4hB/YPW8hhmdUpJ3 2K2B200q7ltyv2iEWQ1MAbEzRKTAWV8dfTrsm9/I9W22N8yq3+baLcdx+LUe77S+gcinpOOFHnXZT7/n C8a7LaF6aOB75HTIlQmhLwI8nFloNBTGToktHmGrXU 4TZJ3USht0Hi+84qzRPkBpg5KjZLhKAZmGTQQ1Easzw0ulePszrLvf+6ZXhcYWNi9e3dDy370x5VM4l5 t9AfhrecqQooBnodmrRpetez54W8MjP5FlcHG97xNHxMvhVcu/O+szn1jJ/tbJtS0PlR/KUD9q4eN4iz Simon+xvH2fD5Z3esYvPFcW1QLe/VOAtwDa2l0p6Mn93 [file] CRISTY+V7VlFFCbg8EX9CaSoAvDFsUDZNOdYByzJfzhge4fd1j0XLo3+aejZU0HrtsacB/amztZp6n5h7M0 bF5Uf7jq1wsGH/Jk1agnZEnByMXHmmmTAAG7HZ4bE2 bVyVAkykvaM7oonSwDEwgsyTSWPsgzbvHPFEQkAVjc9hopAoIl0yIuIZMlCl9mxqEpsXPVZDyIVLH1qi ctYLO2ms+1kcE1EDm035UXVLLCbTqI8sh049N+k3Lft/q8p0IHYz0Tv0eBJEbdCMznUM9mZEyitSGyws D3pZAu9FGFCVu4CmaU11X1E/PqPqzA0hnVS+IH0ekT +8UwuAWJlB3qTTFLDzDhQOBumetjD2kmILWdR9gcC7AjAlxsObnCxDKUHucSK4CdoCPX/UG2K6wAQGc1 CvQhYBZuENymRHYabpTwMukpx2zAdM6oilGdXJ6z+cSYxAeT+XZ3qf8f+V8VFm1Y0gEVnnvSMhYGYK0n D/TWp2Z73r/soD+CD1IVZbfG8skJU+Q4hpL+2bnvbz 2IH/DnmHSgREr7LVqdRwjdrQRHpewElATSkahl+Wfnvm/cOpLZhOZRSxz238GzctwFmrt7dEq5TSIvs6 EOUrCeYAsQQ+l890ng5GG8WY4NQrwbxjBSlahejvF2yPMM3oGtb3lFIXw06zVyxz1714DbcjQUzr6Q7Q 0jwrq5B2AB2OAtbGy9+RuKK/X9k/kmm0hRlt+hKWxl vp software/n8/zOByEV3Fe7x40Hfb/4Pf/+uuckec33hvoOC3L4//jxjqfa01jR/fV/kTo9aoq/nLohlvsq51Me 8+64m2Srva4Hf/ErJ1R+/5Wf/Yz2/VYvDuG3gpgbH1G2G9eA2d5/nb7L/HX3p4tEzp7j/6k9u7ywW/wn 70hOaT/4Geume4rUy2laD0//jCsSNX2kbr67L9+f0Z 5Ae5a8/sWmxp5RN70iD+5opZ90svgpHOmoz1Y8rvjpS50Xnp6Skwcb+60Bdn/3caV6sc6ErC/yLxd4rZ 4sq3+rn3+/M2EnfG3SZ/9+73pe/TsePf9+H/r9J+/TXg8cDvc/d3rMvio/fX+g/Hnsp6B/f5h///6D/L ttP8S/Jph/U5P3o7qzepkkzn/0maY2iltH22a/baf9 hX021gDp1kvi1D39Ovx1d86g64fXoW2L7x/p77HbQpoccaEDLI3+bOnop+Vjhy0f+8atfPiXGqtY5iob 6q52pcR4FC4Z5wGBZ9Zpi7s/30pM3/xe07sRX5n/VmHVMc8mc7xOHuF51XA41kxzLRVol0htOZbgQdn3 fjhfGi56Tuqu9rtX8eqNZQ0LdgI5yCFje13N/FUMtG rw2P1f598a3yURNsX5i/N+T0c/OpD8wPRM4O8oTt+38yv4p79ew0Gjuq0Lz7s72jA7QQam59oyo7il9P j2iLkCGzj8azo1ToTCK5yLoGrz14Y8J/KOivIrfod/Hg2/C75PhGljWRT3nPY/DdjzWPJmP/9+L+t5Ps wCrtuLr1mS6/Ax0Gzcf9X49fv/xaEXJfr3Kmxyhgk4 ux5G6lA9BGw3qOncW0Io333yg9TuHxo3i8dt5/FjH4mjg96Agh+6KcrusdBJve7c/HHb/8jxp09X7aeX 8l0gA4aeVb0Trohpdwr/dxnhuzh4QV89P5596BAaK0uc5gyLIO4+M/D+yNrwngD3OZ9tiUAPgKqxGx6t 8p4BZitcmo6jlgEbNwvil76HM72wi8+/Z+GronLaay x6peh8Q3/f65Bqm2FM5h2a+Gq35/TvSg9/n+tnA3m8uhJY+Eo4S33bqcjYc8Sj31vRSocwOGr31s+s38 gsV3JWfNGTapphqAGe9txzs/MHM03r3Zi5mow4bGrV9a99/twMFjH3obr6npBSI+fJMgA15VpQZvMVCV 9WDngoardSwN/xm0d7ePaFiBpZ81/K/45sUvs5k1/y uhZfobw0QA5bkcnu1uwAh/KCfc2e23gfGC//ysiYLJl465ru/CXoMEJ102WK3Y9ehYB+c93ehWOK1wy0 9n833RVqdbVJvJkbwDYHLum+Ozb33EGtRMx7grqzJPny3X4K834cJ30n+H0cv/HDV3/s4HvMS75eLmr0 97rgzA2cFX/K2rPQl3iqnzUHI69ppIrAg1kGo49h8c 5D7//J+zcfK+J68YitC1Cclht+O/AaGg3Z1S140VSFO95LqCIhfC2bzlG4cH16zIN1u04w+lfvoH+Fr9 y7qkrVskWxN94ktwwskPl/LXzlcha+2eGY1InDJ32VJ+8chues8yx6v9Y5X83J7sFF6/Dtb1Ittjf75w Pklf9c+Zz78otwCY9NIcwOx+Ew6Npm2ENiRnpIG8Bw q/7Lzxb0zrRUgrd0VdmDoostvfTwPW/CV+1N1t5+PnjwxOcdcyHghDBpYA26+ippu605zcHqxqtn1Kf8 ylIdqmJt605CigUiEw2w+xe+ku5DNxJz+Go/1+I5Ck8yt8LmDPoziqlW9IWonQOo4FUPcyy2ruLU6FAb q/0O/KDRg40XnlAl2rrlVuqY4I4BMiX+auGr/W05el 40hy9pP1lWpheSIjU3gC//vPDVbg/6d/bj/xe+2y7mX75E+Dpt4Jji/hz7082nLkw8alOEzGgLQbQy/7 6qO9eT67p/K+jp2g5ld+t/0CscgykStqXeWrdx92m63fuo7r8u0iKdfTfM5eFtq2x/jrtvhOP4KqW4a3 wM6mk9nMYH+Ep32MN7kVPVIn27GsDYmlIRjL2zDZvd SQ+noP3ZpI/U/qU085rior6/0milx6xgsE4Gbc+g1n02Mc/az+28M08/Cdw9Ik52jomp5fFp1p/AV0X4 6nmzqd/fy+pX9MmHT40k2qS/t/NtoJw4/i4xasa6CoMbjrD5zQIUJG0lOTNe8GwES1J5the0LhxO+Erl C18p+Vr4yt/n253H7yna92TXH25H/6y0aY/TInylBP KTi0iOjt639uoZ9Qjpg39IzvqtuUdrsHfPcfyhA+urKq4QpU+WP1+J4cwVT0K6o3eWuTIJkP6Ry/CV5F y4taxdJ12DE+1n9G+XeGCgg5B/6/BETqp3BM/g/XHsU/Ie6XWHL7bsCX9zTqXJqw1aymlD5/Ktu9SfvX BhmAafJLm041MWQ1oIzz/or9OizP577IMTfT4rkQLf G/pX+EpytRPPWWnQ7/vz6Ked+IjfLE43yv/ux4Ewbq+I1Pfj3oxRt4EVTZbjpnn72k6EA/4txld+Pv0l fCU7D/Ik3CRL4ij9OD2JsQ1Abz/kf+VG16ugF8nHg82Yb6OqBA+DoxcYt2Y1ReRfrMT8fT/r0UOv+H2t P2Mref94EkzIHfC+9yl9jCnEU2Wh0FN4+ciF9LDwH+ MuiLj9NaoiSv+Xcda/RfErXZih+DS3pHdOaWwaR8w4rIzc2J+OS0qjrqgfQnv/7vZSN9Lh5z2A2Mk6jb PSys6NvbxzOf7b7W+QidsF04t/rjTm/i2bwbyyP/y57BH11u9TeFbvkKBM+TmDV1u7sv+sm4ye01rh1w 2c8FcT/jluBebg3s0/mQ0gjFG1Vul+8r0qC1/ZTha+ ev2iqSDa0VxXhg/SS77BnwA59iwOHc+v/dTnrI+p3RWpbPn8fQCd8Hzn9Tof+Z2PakSCoAtF7ZLSwl5l MOx0J49Q+6IQ4VwCf05kUaB+oPL3vD/46PmUr/5AqIg2n7eVuccHqn4H7UMV/sJXGpsrL/l9/6wHazrr vBt9YLodUw32fQCu3kcgUcdrL8S41/GOqyrQHRw4Mt YuqWyoM43XybTaQ2//6DHLe2ZV3WfWvjDq8QswIJP2ngjTNmH/5S0rkaU3/Msmr1O1y0718zwbK43sby 93sglO0l6eCJ/KpdqeymWK2zWcEVy9+K/EjCq0t8z3Dzn46mnMr5s98F+sxONtM+FfdWj8jwWMon1k5r 8fd6Nsj5XQpa5NcyG5Y1ed178Ii/W40uYvM8j1Hx/g uAl1xSSGingBQm6xb70r+oeq+JUS4hS/rj1K2glOht4W77PLHzhQ0mwg+liTF7A0UmoHktggi7hIckiy r3E0DfB6I5oQP9froLbE+Pga9PJfulzz9ghvtBDFuqzRC9A7/HMVvpJtC1/JloSv/H4+0LxmbN9Vw8Ku 4iGE9l8+dkGBbi3pfiDYe5vE1ln8o3AvBYAKw6SQet yfaOjOaof0J8hw15ZCUpUFVEvECz9Xcx+cdHvW+0T7o3QXqDn6Ybn97QknWDngt9cmHMcLg4mF/LPwVf Eo6WNirvaBsxu+Lk9EP6snrSsqV+Xu7w06s3u/UPm2Z3+n7wVluYdlRBMt3pt9GnrQG5vhV/L7Vb7PGg 7f7t1Lns57q9X/sGJ/eLgG0srbR2Gtlippaml+8rP2 B/XOwle+soXa336EruiGqD6h/sKr79xeBbx1/X31r+a4ha/272c/KAJTe55oDCZdYcywlAdXR40i9LVp jt/Wxkhtukcr75n3Mk0Udf2oPdqRFaoSFksDTegIMf9TIqxcO/rbJa/w93Zr1P9Dbiqdctj8ynA/VLU/ 6OdAe+Rnr844pzw1Ukjfcof7IKSk2Tk19j6K/Ko9Z3 +/KX6l7B/Fr/z7seem+GElAg8l/1v9G1n0rztzQ1yV9YepN7A+aCQtPqpBpaNKPof0TdLhxlWc9fgN+M thWTe25kn1/aigiO56qe4phZ1041FQ6dQ+ukpu5048guv9Hyv2nUa5gJWOu8/VdP5q5/a2ve/QtD+4n9 urE5y/skbnjO5OZy8X0ZlAa1d/TX889KokTY7aNwst n/euv8viM0p/NewPNsWvZA/76M255HgxDYSl/Xz0r/iV36/4/kuSMoKARb2xnZpKcNMa9M8g+ewvrJzd t/2B7gj6c0/PfkpT/GphqlbOfmgrCb+ew3Qzux0brmfRk7mV3pB5+qUc/0aV1x9zhkeidh68Hm6y9/H6 70tRj0ABjepbd4SUvb3ryHmFls40G4+3vkJx7f1dzd /2V8EJUi/Jil6iVuu8YSkqivasHcuUF75pwb1Nk/IeF0i63N+udNy3/P12FcdXY/NvU/vNsAT3aVpkVc zRGsZvO/ABWbzFAeb0S/1u1Fyufa6md3DIg1/76n1oA8G8B/4fqt27Iu071fyy/Yzfz/5+0/kr2f/CV1 o7rKTb/RznPMNKufXcsTJuPT+3NGjJApc2hrN+kn6E r4qfT7/o/JV/kljjSIqVkd1xTo3nJqk5j9jaql7ea9vbyCV3H13rlP89zA7vKK/VhK9kY/0fO48gXpW7 jpnB1bM+Ly/+b/3Ec1o/+3Zip0surlc2Tx1JL6OX+4NN+Eq66h2/e2YcKT9UZ/x85KLMJD3gnjWf/NVO ll9la5O/66U2z1I4HvvzELs31OfUK9xqjZ/bwPgdZz +lYX+oCIouuf5M/Mitzy+Ktx9o/aOPsLTfErywV/AF72rq3l/7gvQb5tUFmftaMwcGlb8sdUS125LSNhdJ lo3ruQm91uoK2++Ko/ij3hCm1vEi//zdbtomRc3eg8jFJey+qtZ73zZYUmpwpU+MNX/Crispin/1aabG/S82 +6Gp1ehiHvm0b6eh47AmF8+12Jc8/Bk/Pl3Y6tcgLZ r5K+Ls64OoLmiE6dHRyy5pWwXXuhMrTgBwX4n4tB+riya95Rk+L1yc4hjW5h05q4XODA+q8x7QkzwWeX qYDnzy89k9gJ9+d3/mr3rciMzi2VQzFSGCg7Ccw+iqcdg50Bjy/5d+136/uyP1Jsm+UTQvGr/Ka/bl0J XykJTfhK3+WyczJjsX0qx/Vg5DP/Rj54I/L1Yjx9to R0bE3Z1JemTfiLfNT99HxbvyNius+h81f+pI01MktBZ79DcC9NvD2X2Qc6hhSRAPnXAyB9ctrW+Mrv5N LvjwSQ8kYHz13p5ekn1yfohDOzLPXu7mbCuUI6889aBf4gz4eqgDyDsJq93Sj5ksXV+Er2WY9/Dp1vdw QaguTM8Cj88RNn6wVozg6awfh7+89l2544srdhQsaV 9az3Q/rOcyUgT8G1+Qsri/Vtm+TUKGDwD0a0CO/C6nV0Omfb3u+e5/uWjVVz2nlgc7cv0/Denver/tvklfP kFf4yr/X4w+Ft8LLCS10Q74e16j1wu/CV/X3XH1jylen91Q9+AvnTYUo6BIN5sKMWGFE+RgbJgx7lPfH iRPfWFmqu/1x4huh+FPHZfiEb795+65vDxUqp27udf AQMBHWcLg92HNJ3dx0+0cR8M/LJ2Twfv2fdSCYRB5/8ZyVlPr+rf55f6qpc/yF6PBX/cy/Kx31/wong/B OAyW2X2d/3ewNv8Y7+8hein/hF1WRxA7YA/mqc/ZTQ/hG4zZy7cqbZs+qLhw1wIQ0CKx1i/LMejHHWCz FO/uADc74Ubt/28+tmviUh3UdZzNqacnShuzmrJeb/ tZ/eY1lphRU2g00ciGU/Hzp/JZ+p/UHVO89+GlolPsigy3je00j1lBGIRpbScqSdgBb/O+U1mlX2iqSy wKdI973gC1/IqosyiH0V+auO+FX3+av+zmYP6ml+tJsBe515kH2D7k4r/ZT+iSUPEwCxasjg9k6fV32/ 3C5aNmizgyXQs/w8UM5A+Sf+3IWvVn/5iJw3figis8 7OeaSezvzbEb/z2iq222Smffe23qUlAJ830JioEw8R/pF+bgfS9KJUZg7k5S9AM53u08S9S21SrEp0rk +h7Aezl3+MUY+mwYQ1Yy/1XM7wajMHx0rxKd4/7Pmc5+/CV+ovrJ02JyNWeYt04qK21qtKiw4kUAzW/R 59zbnh24dvS+t3d14Gk//afF/8nsqGqhz3l0tsywUS Fkeps+s+j/y6pONGjRQBhsm4OtjTVr/4EY9xmNFRgw/0O48jxoD6s6nOV1n434qk/s15KeCN6K1MNcBd /APwMp71Jf3Y7sC+sboLx6u35lbkEtra+Iac8j5Rb2UmO0UF/zm6dF5LSAab57V4SfrElts0d3lmj7pK FjTpQApp/fcmLLXdmbnGKWccsnRzxgQ4JPY1NKjhpD MOpol2/zY9wl48PO6ip7S09iGOxzGatTa+TrdgZmo5Iw7A27n42tUany2uyJfmK8UQTNIK38RtKdWc0J qTSasVDuy2eDDZ/HRQpix+4njTdti46DJzosnOBn20SRB94jWULjK7C866RFOzgn3fRCB/mF0g16Fi1b gdpLuYkj8q3/mpPECPZ9Dj5fl8QTyJdTf5hwhE9dIN x0G10rfqcwB/xNJBkaTrPo+/1lcJWscYum9YsctSH4wFSzu6+tOMi8DfKkBvw+q8r9lUVYJt90XF1HqT ptX8XKxWMaW45nQWlMSgJQHOQVtKl7AFYrgL3NAUK8Rou5PZ/EagxPUg5LMBDK7QufG0Dyp17RNnWvlI B/YAH1kE9RsWWgCgyGg+xTW59ZGno0/XcVKDpG0arG Zmg9+EdrZ41WrZCUdF+H4CO9hY1akCKnUBEalgND/E7Vt7vpn9hcaWipE9DVrJMQK/vR26NK1udfOS9j Xlw9fpXyAbeJobUl7QAOqKjhHaiG8e0qBKefnFfZ1bJk7+uik1HqD6Js50bpUMmhYPRIMQBgdcGzb/VÍCTOR [file] AwMDAgbiAKMDAwMDAwMDQwOSAwMDAwMCBuIAowMDAw YLWpZYUxXOArUZPnFU5xAoQeUZMkYGD8BMXnRQQgQVDwoiBENVDeYAEbSNc5HNVjTBCyJSHgVIanNVXm JEPeAFW7ELIgMFIiJG0rFqFvCZKqZIP4BbLfFNJsHDVkqdMOBPObQIXuSKA1UnHbHANwJZQoNSqxEBPf PEKyLAjvXMOkVHDnCG1pMgIjOAKnLNCnYDlpBROzRA JdzyBFAGBuXKGpWUDiLxGcLBUeWICxQLuaNIUrAAhkROH2XAXaOJZfYT1zBnOvDVUcHSX8HJztFDIpXY CzyqRWVSMcIEBlQUezXABsPFYrMIIxVRpfVVFlCZJuZUO2XJEoQVSvRT7gKpVsBLFuLSCtWMPjIgW5Mq OoAcIXwAPzlKdprzj2PXrxQ3q7MZUhHQbaSQ1tcxBf LMTuGeydJq6erEX1UPThVpdREr4Yd9PmmmD9fiWqQuo1MAYvRfPoPO0R ID Date Data Source [id number] 05/31/2019 07:54:38 PM [facility] Name Value Range Interpretation Code Description Data Amarilis rce(s) Supporting Document(s) Sodium [Moles/volume] in Blood 135 mmol/L 136-145 L [facility] Potassium [Moles/volume] in Blood 3.9 mmol/L 3.4-5.1 [facility] Chloride [Moles/volume] in Blood 99 mmol/L 98-107 [facility] Carbon dioxide, total [Moles/volume] in Blood 28 mmol/L 22-29 [facility] Calcium.ionized [Moles/volume] in Blood 1.18 mmol/L 1.13-1.32 [facility] Glucose [Mass/volume] in Blood 84 mg/dL 70-140 [facility] Urea nitrogen [Mass/volume] in Blood 11 mg/dL 6-20 [facility] Creatinine [Mass/volume] in Blood 0.5 mg/dL 0.70-1.20 [facility] Hematocrit [Volume Fraction] of Blood 34 % 41-53 L [facility] Hemoglobin [Mass/volume] in Blood by calculation 11.6 g/dL 13.5-18.0 [facility] ID Date Data Source [id number] 05/31/2019 07:54:38 PM [facility] Name Value Range Interpretation Code Description Data Amarilis rce(s) Supporting Document(s) pH of Venous blood 7.38 7.36-7.41 [facility] Carbon dioxide [Partial pressure] in Venous blood 46 mmHg 40-45 H [facility] Oxygen [Partial pressure] in Venous blood 29 mmHg [facility] Base excess standard in Venous blood by calculation 2 mmol/L [facility] Oxygen saturation Calculated from oxygen partial pressure in Venous blood 54 % 60-85 L [facility] Lactate [Moles/volume] in Venous blood 0.8 mmol/L 0.5-2.2 [facility] Bicarbonate [Moles/volume] in Venous blood 29 mmol/L [facility] ID Date Data Source [id number] 06/05/2019 10:35:48 AM [facility] Cmnt XXX-Imp : Microorganism XXX Cult : No growth (qualifier value) Name Value Range Interpretation Code Description Data Amarilis rce(s) Supporting Document(s) ID Date Data Source [id number] 06/05/2019 10:35:48 AM [facility] Cmnt XXX-Imp : Microorganism XXX Cult : No growth (qualifier value) Name Value Range Interpretation Code Description Data Amarilis rce(s) Supporting Document(s) ID Date Data Source [id number] 05/31/2019 07:19:33 PM [facility] Name Value Range Interpretation Code Description Data Amarilis rce(s) Supporting Document(s) Leukocytes [#/volume] in Blood by Automated count 13.6 10*3/uL 4-10 H [facility] Erythrocytes [#/volume] in Blood by Automated count 3.46 10*6/uL 4.6- 6.1 L [facility] Hemoglobin [Mass/volume] in Blood 10.2 g/dL 13.5-18 L [facility] Hematocrit [Volume Fraction] of Blood by Automated count 31.1 % 4 1-53 L [facility] Erythrocyte mean corpuscular volume [Entitic volume] by Auto mated count 89.9 fL 80-96 [facility] Erythrocyte mean corpuscular hemoglobin [Entitic mass] by Automated count 29.5 pg 27-33 [facility] Erythrocyte mean corpuscular hemoglobin concentration [Mass/volume] by Automated count 32.8 g/dL 32.0-36.0 [facility] width [Ratio] by Automated count 14.6 % 11.5-14.5 H [facility] Platelets [#/volume] in Blood by Automated count 962 10*3/uL 150-400 H [facility] Differential cell count method - Blood [facility] Neutrophils/100 leukocytes in Blood by Automated count 69 % [facility] Lymphocytes/100 leukocytes in Blood by Automated count 17 % [facility] Monocytes/100 leukocytes in Blood by Automated count 13 % [facility] Eosinophils/100 leukocytes in Blood by Automated count 0 % [facility] Basophils/100 leukocytes in Blood by Automated count 1 % [facility] Neutrophils [#/volume] in Blood by Automated count 9.35 10*3/uL 1.8-7 .0 H [facility] Lymphocytes [#/volume] in Blood by Automated count 2.31 10*3/uL 1.2-4 .0 [facility] Monocytes [#/volume] in Blood by Automated count 1.82 10*3/uL 0-0.8 H [facility] Eosinophils [#/volume] in Blood by Automated count 0.04 10*3/uL 0-0.5 [facility] Basophils [#/volume] in Blood by Automated count 0.11 10*3/uL 0-0.2 [facility] Nucleated erythrocytes/100 leukocytes [Ratio] in Blood by Automated count 0 /100{WBCs} 0-0 [facility] ID Date Data Source [id number] 05/31/2019 07:39:39 PM [facility] Name Value Range Interpretation Code Description Data Amarilis rce(s) Supporting Document(s) Prothrombin time (PT) 13.9 s 12.5-14.9 [facility] INR in Platelet poor plasma by Coagulation assay 1.03 [facility] Routine intensity oral anticoagulation I NR is typically 2.0-3.0. Target INR must be clinically individualized. ID Date Data Source [id number] 05/31/2019 07:39:39 PM [facility] [facility] Value Range Interpretation Code Description Data Amarilis rce(s) Supporting Document(s) aPTT in Platelet poor plasma by Coagulation assay 33.4 s 24.0-34. 0 [facility] ID Date Data Source [id number] 05/31/2019 07:47:27 PM [facility] Value Range Interpretation Code Description Data Amarilis rce(s) Supporting Document(s) Albumin [Mass/volume] in Serum or Plasma by Bromocresol green (BCG) dye binding method 3.0 g/dL 3.5-5.2 L [facility] al Bilirubin.total [Mass/volume] in Serum or Plasma 0.2 mg/dL <1.2 [facility] Bilirubin.direct [Mass/volume] in Serum or Plasma <0.3 [facility] Alkaline phosphatase [Enzymatic activity/volume] in Serum or Plasma 77 U/L 40-129 [facility] Aspartate aminotransferase [Enzymatic activity/volume] in Se rum or Plasma 9 U/L <40 [facility] Alanine aminotransferase [Enzymatic activity/volume] in Seru m or Plasma 10 U/L <41 [facility] Protein [Mass/volume] in Serum or Plasma 6.1 g/dL 6.4-8.3 L [facility] ID Date Data Source [id number] 05/31/2019 07:47:27 PM [facility] Name Value Range Interpretation Code Description Data Amarilis rce(s) Supporting Document(s) Bicarbonate [Moles/volume] in Serum 26 mmol/L 22-29 [facility] Chloride [Moles/volume] in Serum or Plasma 98 mmol/L 98-107 [facility] Creatinine [Mass/volume] in Serum or Plasma 0.59 mg/dL 0.70-1.20 L [facility] Glucose [Mass/volume] in Serum or Plasma 88 mg/dL 70-140 [facility] Potassium [Moles/volume] in Serum or Plasma 4.0 mmol/L 3.4-5.1 [facility] Sodium [Moles/volume] in Serum or Plasma 137 mmol/L 136-145 [facility] Urea nitrogen [Mass/volume] in Serum or Plasma 10 mg/dL 6-20 [facility] Anion gap 3 in Serum or Plasma 13 mmol/L 8-15 [facility] Osmolality of Serum or Plasma by calculation 282 mosm/kg 275-300 [facility] Creatinine/Urea nitrogen [Mass Ratio] in Serum or Plasma 17 [facility] Calcium [Mass/volume] in Serum or Plasma 8.6 mg/dL 8.6-10.0 [facility] Glomerular filtration rate/1.73 sq M pre dicted among non-blacks [Volume Rate/Area] in Serum or Plasma by Creatinine-based formula (MDRD) >6 0 [facility] Glomerular filtration rate/1.73 sq M pre dicted among blacks [Volume Rate/Area] in Serum or Plasma by Creatinine-based formula (MDRD) >60 [facility] ID Date Data Source [id number] 05/31/2019 07:43:23 PM [facility] Name Value Range Interpretation Code Description Data Amarilis rce(s) Supporting Document(s) ABO and Rh group [Type] in Blood [facility] Blood group antibody screen [Presence] in Serum or Plasma [facility] Blood bank comment [facility] Procedure Social History Code Duration Value Status Description Data Source(s ) Smoking 06/07/2020 02:13:00 PM EST Daily Smoker completed Daily S moker [facility] Alcohol intake 06/01/2019 12:00:00 AM EST Lifetime non-drinker (finding) completed Lifetime non-drinker (finding) [facility] ital Cigarette pack-years 06/01/2019 12:00:00 AM EST [facility] Cigarettes smoked current (pack per day) - Reported 06/01/19 12:00:00 AM EST [facility]K [facility] Smoking 06/01/2019 12:00:00 AM EST Heavy tobacco smoker comple bryn Heavy tobacco smoker [facility] Vital Signs ID Date Data Source UNK Name Value Range Interpretation Code Description Data Source(s) Deprecated Oxygen saturation in Capillary blood by Oximetry 98 % Normal (applies to non-numeric results) 98 % [facility] Body temperature 37.6 jana Normal (applies to non-numeric results) 37.6 jana [facility] Respiratory rate 20 min Normal (applies to non-numeric results) 20 min [facility] Heart rate 95 min Normal (applies to non-numeric resul ts) 95 min [facility] Diastolic blood pressure 87 mm[Hg] Normal (applies to non-numeric results) 87 mm[Hg] [facility] Systolic blood pressure 128 mm[Hg] Normal (applies t o non-numeric results) 128 mm[Hg] [facility] Body height 174.3456 cm Normal (applies to non-numeric res ults) 174.3456 cm [facility] Body weight Measured 60.2 kg Normal (applies to non-num ayden results) 60.2 kg [facility] Body mass index (BMI) [Ratio] 19.60 kg/m2 No rmal (applies to non-numeric results) 19.60 kg/m2 [facility] Body mass index (BMI) [Ratio] [...] [Ratio] 20.1 kg/m2 20.1 k g/m2 REBEKAH ([facility]) Body height 69 [in_i] 69 [in_i] REBEKAH ([facility]) Diastolic blood pressure 73 mm[Hg] 73 mm[Hg] REBEKAH ([facility]) Body weight 2182.4 [oz_av] 2182.4 [oz_av] ATHEN A ([facility]) Systolic blood pressure 109 mm[Hg] 109 mm[Hg] A [facility] ([facility]) Body weight 2192 [oz_av] 2192 [oz_av] REBEKAH ([facility]) Systolic blood pressure 107 mm[Hg] 107 mm[Hg] A [facility] ([facility]) Body mass index (BMI) [Ratio] 20.2 kg/m2 20.2 k g/m2 REBEKAH ([facility]) Body height 69 [in_i] 69 [in_i] REBEKAH ([facility]) Diastolic blood pressure 60 mm[Hg] 60 mm[Hg] REBEKAH ([facility]) Body weight 2192 [oz_av] 2192 [oz_av] REBEKAH ([facility]) Systolic blood pressure 107 mm[Hg] 107 mm[Hg] A [facility] ([facility]) Body mass index (BMI) [Ratio] 20.2 kg/m2 20.2 k g/m2 REBEKAH ([facility]) Body height 69 [in_i] 69 [in_i] REBEKAH ([facility]) Diastolic blood pressure 60 mm[Hg] 60 mm[Hg] REBEKAH ([facility]) Body surface area Derived from formula 1.76 m2 1.76 m2 [facility] ([facility]) Body weight 62.313 kg 62.313 kg [facility] ([facility]) Spivey body weight 160 [lb_av] 160 [lb_av] MEDEN T ([facility]) Body mass index (BMI) [Ratio] 20.3 kg/m2 20.3 k g/m2 [facility] ([facility]) Body weight 137.38 [lb_av] 137.38 [lb_av] MEDEN T ([facility]) Body height 69 [in_i] 69 [in_i] [facility] ([facility]) 5'9" Diastolic blood pressure 69 mm[Hg] 69 mm[Hg] [facility] ([facility]) Systolic blood pressure 106 mm[Hg] 106 mm[Hg] [facility] Body weight 2144 [oz_av] 2144 [oz_av] REBEKAH ([facility]) Body mass index (BMI) [Ratio] 19.8 kg/m2 19.8 k g/m2 REBEKAH ([facility]) Body height 69 [in_i] 69 [in_i] REBEKAH ([facility]) Body weight 2144 [oz_av] 2144 [oz_av] REBEKAH ([facility]) Body mass index (BMI) [Ratio] 19.8 kg/m2 19.8 k g/m2 REBEKAH ([facility]) Body height 69 [in_i] 69 [in_i] REBEKAH ([facility]) Body weight 2144 [oz_av] 2144 [oz_av] REBEKAH ([facility]) Body mass index (BMI) [Ratio] 19.8 kg/m2 19.8 k g/m2 REBEKAH ([facility]) Body height 69 [in_i] 69 [in_i] REBEKAH ([facility]) Body weight 2144 [oz_av] 2144 [oz_av] REBEKAH ([facility]) Body weight 2144 [oz_av] 2144 [oz_av] REBEKAH ([facility]) Systolic blood pressure 130 mm[Hg] 130 mm[Hg] A [facility] ([facility]) Body mass index (BMI) [Ratio] 19.8 kg/m2 19.8 k g/m2 REBEKAH ([facility]) Body height 69 [in_i] 69 [in_i] RE[facility]KAH ([facility]) Diastolic blood pressure 101 mm[Hg] 101 mm[Hg] REBEKAH ([facility]) Body weight 2144 [oz_av] 2144 [oz_av] REBEKAH ([facility]) Systolic blood pressure 130 mm[Hg] 130 mm[Hg] A [facility] ([facility]) Body mass index (BMI) [Ratio] 19.8 kg/m2 19.8 k g/m2 REBEKAH ([facility]) Body height 69 [in_i] 69 [in_i] REBEKAH ([facility]) Diastolic blood pressure 101 mm[Hg] 101 mm[Hg] REBEKAH ([facility]) Systolic blood pressure 130 mm[Hg] 130 mm[Hg] A [facility] ([facility]) Body mass index (BMI) [Ratio] 19.8 kg/m2 19.8 k g/m2 REBEKAH ([facility]) Body height 69 [in_i] 69 [in_i] REBEKAH ([facility]) Diastolic blood pressure 101 mm[Hg] 101 mm[Hg] REBEKAH ([facility]) Body weight 2144 [oz_av] 2144 [oz_av] REBEKAH ([facility]) Systolic blood pressure 130 mm[Hg] 130 mm[Hg] A [facility] ([facility]) Body mass index (BMI) [Ratio] 19.8 kg/m2 19.8 k g/m2 REBEKAH ([facility]) Body height 69 [in_i] 69 [in_i] REBEKAH ([facility]) Diastolic blood pressure 101 mm[Hg] 101 mm[Hg] REBEKAH ([facility]) Body surface area Derived from formula 1.72 m2 1.72 m2 JACQUIE ([facility]) Body weight 59.138 kg 59.138 kg MEDGAY ([facility], ) Spivey body weight 160 [lb_av] 160 [lb_av] [facility] ([facility], ) Body mass index (BMI) [Ratio] 19.3 kg/m2 19.3 k g/m2 [facility] ([facility]) Body weight 130.38 [lb_av] 130.38 [lb_av] [facility], ) Body height 69 [in_i] 69 [in_i] [facility] ([facility], ) 5'9" Diastolic blood pressure 81 mm[Hg] 81 mm[Hg] [facility] ([facility]) Systolic blood pressure 126 mm[Hg] 126 mm[Hg] [facility], ) Body weight 8 [oz_av] 2048 [oz_av] REBEKAH ([facility]) Systolic blood pressure 116 mm[Hg] 116 mm[Hg] A [facility] ([facility]) Body height 69 [in_i] 69 [in_i] REBEKAH ([facility]) Diastolic blood pressure 80 mm[Hg] 80 mm[Hg] REBEKAH ([facility]) Body weight 8 [oz_av] 2048 [oz_av] REBEKAH ([facility]) Systolic blood pressure 116 mm[Hg] 116 mm[Hg] A [facility] ([facility]) Body height 69 [in_i] 69 [in_i] REBEKAH ([facility]) Diastolic blood pressure 80 mm[Hg] 80 mm[Hg] REBEKAH ([facility]) Body weight 8 [oz_av] 2048 [oz_av] REBEKAH ([facility]) Systolic blood pressure 116 mm[Hg] 116 mm[Hg] A [facility] ([facility]) Body height 69 [in_i] 69 [in_i] REBEKAH ([facility]) Diastolic blood pressure 80 mm[Hg] 80 mm[Hg] REBEKAH ([facility]) Body weight 2048 [oz_av] 2048 [oz_av] REBEKAH ([facility]) Systolic blood pressure 116 mm[Hg] 116 mm[Hg] A [facility] ([facility]) Body height 69 [in_i] 69 [in_i] REBEKAH ([facility]) Diastolic blood pressure 80 mm[Hg] 80 mm[Hg] REBEKAH ([facility]) Body surface area Derived from formula 1.73 m2 1.73 m2 [facility] ([facility], ) Body weight 59.478 kg 59.478 kg [facility] ([facility], ) Spivey body weight 160 [lb_av] 160 [lb_av] MEDEN T ([facility]) Body mass index (BMI) [Ratio] 19.4 kg/m2 19.4 k g/m2 [facility] ([facility]) Body weight 131.12 [lb_av] 131.12 [lb_av] [facility] ([facility], ) Body height 69 [in_i] 69 [in_i] [facility] ([facility], ) 5'9" Diastolic blood pressure 80 mm[Hg] 80 mm[Hg] [facility] ([facility], ) Systolic blood pressure 118 mm[Hg] 118 mm[Hg] M EDGAY ([facility], ) Body weight 2144 [oz_av] 2144 [oz_av] REBEKHA ([facility]) Systolic blood pressure 126 mm[Hg] 126 mm[Hg] A [facility] ([facility]) Body height 69 [in_i] 69 [in_i] REBEKAH ([facility]) Diastolic blood pressure 88 mm[Hg] 88 mm[Hg] REBEKAH ([facility]) Body weight 2144 [oz_av] 2144 [oz_av] REBEKAH ([facility]) Systolic blood pressure 126 mm[Hg] 126 mm[Hg] A [facility] ([facility]) Body height 69 [in_i] 69 [in_i] REBEKAH ([facility]) Diastolic blood pressure 88 mm[Hg] 88 mm[Hg] REBEKAH ([facility]) Body weight 2144 [oz_av] 2144 [oz_av] REBEKAH ([facility]) Body weight 2144 [oz_av] 2144 [oz_av] REBEKAH ([facility]) Systolic blood pressure 126 mm[Hg] 126 mm[Hg] A THENA ([facility]) Body height 69 [in_i] 69 [in_i] RE[facility]KAH ([facility]) Diastolic blood pressure 88 mm[Hg] 88 mm[Hg] REBEKAH ([facility]) Systolic blood pressure 126 mm[Hg] 126 mm[Hg] A THENA ([facility]) Body height 69 [in_i] 69 [in_i] [facility] ([facility]) Diastolic blood pressure 88 mm[Hg] 88 mm[Hg] RE[facility] ([facility]) Body weight 2144 [oz_av] 2144 [oz_av] REBEKAH ([facility]) Systolic blood pressure 105 mm[Hg] 105 mm[Hg] A [facility] ([facility]) Body height 69 [in_i] 69 [in_i] REBEKAH ([facility]) Diastolic blood pressure 73 mm[Hg] 73 mm[Hg] REBEKAH ([facility]) Body weight 2144 [oz_av] 2144 [oz_av] REBEKAH ([facility]) Systolic blood pressure 105 mm[Hg] 105 mm[Hg] A [facility] ([facility]) Body height 69 [in_i] 69 [in_i] REBEKAH ([facility]) Diastolic blood pressure 73 mm[Hg] 73 mm[Hg] REBEKAH ([facility]) Body weight 2144 [oz_av] 2144 [oz_av] REBEKAH ([facility]) Systolic blood pressure 105 mm[Hg] 105 mm[Hg] A THENA ([facility]) Body height 69 [in_i] 69 [in_i] REBEKAH ([facility]) Diastolic blood pressure 73 mm[Hg] 73 mm[Hg] REBEKAH ([facility]) Body weight 2144 [oz_av] 2144 [oz_av] [facility] ([facility]) Systolic blood pressure 105 mm[Hg] 105 mm[Hg] A THENA ([facility]) Body height 69 [in_i] 69 [in_i] RE[facility]KAH ([facility]) Diastolic blood pressure 73 mm[Hg] 73 mm[Hg] REBEKAH ([facility]) Systolic blood pressure 119 mm[Hg] 119 mm[Hg] A [facility] ([facility]) Body height 69 [in_i] 69 [in_i] REBEKAH ([facility]) Diastolic blood pressure 84 mm[Hg] 84 mm[Hg] REBEKAH ([facility]) Systolic blood pressure 119 mm[Hg] 119 mm[Hg] A [facility] ([facility]) Body height 69 [in_i] 69 [in_i] RE[facility]KAH ([facility]) Diastolic blood pressure 84 mm[Hg] 84 mm[Hg] REBEKAH ([facility]) Systolic blood pressure 119 mm[Hg] 119 mm[Hg] A [facility] ([facility]) Body height 69 [in_i] 69 [in_i] REBEKAH ([facility]) Diastolic blood pressure 84 mm[Hg] 84 mm[Hg] REBEKAH ([facility]) Systolic blood pressure 119 mm[Hg] 119 mm[Hg] A [facility] ([facility]) Body height 69 [in_i] 69 [in_i] RE[facility]KAH ([facility]) Diastolic blood pressure 84 mm[Hg] 84 mm[Hg] REBEKAH ([facility]) Body weight 2144 [oz_av] 2144 [oz_av] RE[facility]KAH ([facility]) Systolic blood pressure 109 mm[Hg] 109 mm[Hg] A THENA ([facility]) Body height 69 [in_i] 69 [in_i] REBEKAH ([facility]) Diastolic blood pressure 80 mm[Hg] 80 mm[Hg] REBEKAH ([facility]) Body weight 2144 [oz_av] 2144 [oz_av] REBEKAH ([facility]) Systolic blood pressure 109 mm[Hg] 109 mm[Hg] A THENA ([facility]) Body height 69 [in_i] 69 [in_i] REBEKAH ([facility]) Diastolic blood pressure 80 mm[Hg] 80 mm[Hg] REBEKAH ([facility]) Body weight 2144 [oz_av] 2144 [oz_av] REBEKAH ([facility]) Systolic blood pressure 109 mm[Hg] 109 mm[Hg] A THENA ([facility]) Body height 69 [in_i] 69 [in_i] REBEKAH ([facility]) Diastolic blood pressure 80 mm[Hg] 80 mm[Hg] REBEKAH ([facility]) Body weight 2144 [oz_av] 2144 [oz_av] REBEKAH ([facility]) Systolic blood pressure 109 mm[Hg] 109 mm[Hg] A [facility] ([facility]) Body height 69 [in_i] 69 [in_i] REBEKAH ([facility]) Diastolic blood pressure 80 mm[Hg] 80 mm[Hg] REBEKAH ([facility]) Body weight 57.380 kg 57.380 kg [facility] ([facility], ) Body mass index (BMI) [Ratio] 18.7 kg/m2 18.7 k g/m2 [facility] ([facility], ) Body weight 126.50 [lb_av] 126.50 [lb_av] MEDEN T ([facility], ) Body height 69 [in_i] 69 [in_i] [facility] ([facility], ) 5'9" Body temperature 96.9 [degF] 96.9 [degF] [facility] ([facility], ) Diastolic blood pressure 62 mm[Hg] 62 mm[Hg] MEDENT ([facility], ) Systolic blood pressure 110 mm[Hg] 110 mm[Hg] M EDGAY ([facility], ) Body weight 1983 [oz_av] 1983 [oz_av] REBEKAH ([facility]) Systolic blood pressure 115 mm[Hg] 115 mm[Hg] A [facility] ([facility]) Body height 69 [in_i] 69 [in_i] REBEKAH ([facility]) Diastolic blood pressure 72 mm[Hg] 72 mm[Hg] REBEKAH ([facility]) Body weight 1983 [oz_av] 1983 [oz_av] REBEKAH ([facility]) Systolic blood pressure 115 mm[Hg] 115 mm[Hg] A THENA ([facility]) Body height 69 [in_i] 69 [in_i] REBEKAH ([facility]) Diastolic blood pressure 72 mm[Hg] 72 mm[Hg] REBEKAH ([facility]) Body weight 1983 [oz_av] 1983 [oz_av] REBEKAH ([facility]) Systolic blood pressure 115 mm[Hg] 115 mm[Hg] A THENA ([facility]) Body height 69 [in_i] 69 [in_i] REBEKAH ([facility]) Diastolic blood pressure 72 mm[Hg] 72 mm[Hg] REBEKAH ([facility]) Body weight 1983 [oz_av] 1983 [oz_av] REBEKAH ([facility]) Systolic blood pressure 115 mm[Hg] 115 mm[Hg] A [facility] ([facility]) Body height 69 [in_i] 69 [in_i] REBEKAH ([facility]) Diastolic blood pressure 72 mm[Hg] 72 mm[Hg] REBEKAH ([facility]) Body weight 1868.8 [oz_av] 1868.8 [oz_av] ATHEN A ([facility]) Systolic blood pressure 109 mm[Hg] 109 mm[Hg] A [facility] ([facility]) Body height 69 [in_i] 69 [in_i] REBEKAH ([facility]) Diastolic blood pressure 76 mm[Hg] 76 mm[Hg] REBEKAH ([facility]) Body weight 1868.8 [oz_av] 1868.8 [oz_av] ATHEN A ([facility]) Systolic blood pressure 109 mm[Hg] 109 mm[Hg] A [facility] ([facility]) Body height 69 [in_i] 69 [in_i] REBEKAH ([facility]) Diastolic blood pressure 76 mm[Hg] 76 mm[Hg] REBEKAH ([facility]) Body weight 1868.8 [oz_av] 1868.8 [oz_av] ATHEN A ([facility]) Systolic blood pressure 109 mm[Hg] 109 mm[Hg] A THENA ([facility]) Body height 69 [in_i] 69 [in_i] REBEKAH ([facility]) Diastolic blood pressure 76 mm[Hg] 76 mm[Hg] REBEKAH ([facility]) Body weight 1868.8 [oz_av] 1868.8 [oz_av] ATHEN A ([facility]) Systolic blood pressure 109 mm[Hg] 109 mm[Hg] A THENA ([facility]) Body height 69 [in_i] 69 [in_i] REBEKAH ([facility]) Diastolic blood pressure 76 mm[Hg] 76 mm[Hg] REBEKAH ([facility]) Body weight 52.277 kg 52.277 kg [facility] ([facility], ) Body mass index (BMI) [Ratio] 17.0 kg/m2 17.0 k g/m2 [facility] ([facility], ) Body weight 115.25 [lb_av] 115.25 [lb_av] [facility] T ([facility], ) Body height 69 [in_i] 69 [in_i] [facility] ([facility], ) 5'9" Diastolic blood pressure 62 mm[Hg] 62 mm[Hg] [facility] ([facility]) Systolic blood pressure 100 mm[Hg] 100 mm[Hg] M EDGAY ([facility]) ID Date Data Source [id number] 06/05/2019 10:35:59 AM [facility] Name Value Range Interpretation Code Description Data Source(s) WEIGHT RECORDED 289.91 lb 289.91 lb [facility] Body height Measured 72 in 72 in [facility] Patient Treatment Plan of Care Planned Activity Planned Date Details Description Data Source (s) 24 HR Nicotine 0.583 MG/HR Transdermal Patch 06/02/2019 09:00:00 AM [facility] sodium chloride (preservative free) 0.9 % flush 3 mL 01:00:00 AM [facility] Tetrahydrocannabinol 5 MG Oral Capsule REBEKAH ([facility]) Tetrahydrocannabinol 5 MG Oral Capsule REBEKAH ([facility]) Tetrahydrocannabinol 5 MG Oral Capsule REBEKAH ([facility]) Tetrahydrocannabinol 5 MG Oral Capsule REBEKAH ([facility])
--- NOTE | 2020-06-26 00:31 | REPVR ---
PROCEDURE INFORMATION: Exam: XR Chest, 1 View Exam date and time: 06/26/2020 12:15 AM Age: 45 years old Clinical indication: Other: Fever TECHNIQUE: Imaging protocol: XR of the chest Views: 1 view. COMPARISON: CR Chest, 1 view 09/03/2019 4:38 AM FINDINGS: Tubes, catheters and devices: Tunneled right IJ vascular catheter is unchanged in position at the central SVC level Lungs: Degree of lung inflation is normal. No evidence of pulmonary edema. No focal consolidation or parenchymal lung mass. Pleural spaces: No pleural effusion or pneumothorax. Heart/Mediastinum: Cardiac silhouette appears normal. No adenopathy or hilar mass. Bones/joints: Osseous structures show no concerning abnormality. IMPRESSION: No acute or focal cardiopulmonary process. Electronically signed by: Angelo Toth On 06/26/2020 00:31:39 AM
[2020-06-26 00:35] LABS: HEMATOCRIT 28.5 % (42.0-52.0); HEMOGLOBIN 9.3 g/dl (13.5-17.5); MEAN CORPUSCULAR HEMOGLOBIN 30.6 pg (27.0-33.0); MEAN CORPUSCULAR HGB CONC 32.6 g/dl (32.0-36.5); MEAN CORPUSCULAR VOLUME 93.8 fl (80.0-96.0); PLATELET COUNT, AUTOMATED 704 10^3/uL (150-450); RED BLOOD COUNT 3.04 10^6/uL (4.30-6.10)
[2020-06-26 00:45] LABS: INR 1.01; PROTHROMBIN TIME 13.5 SECONDS (12.5-14.3)
[2020-06-26 00:46] LABS: PARTIAL THROMBOPLASTIN TIME 33.6 SECONDS (24.2-38.5)
[2020-06-26 00:59] LABS: WHITE BLOOD COUNT 7.4 10^3/uL (4.0-10.0)
[2020-06-26 01:09] LABS: ALBUMIN 2.5 GM/DL (3.2-5.2); ALT/SGPT 27 U/L (12-78); BILIRUBIN,DIRECT 0.5 MG/DL (0.0-0.2); BILIRUBIN,TOTAL 1.1 MG/DL (0.2-1.0); BLOOD UREA NITROGEN 13 MG/DL (7-18); CALCIUM LEVEL 8.8 MG/DL (8.5-10.1); CARBON DIOXIDE LEVEL 34 MEQ/L (21-32); CHLORIDE LEVEL 93 MEQ/L (98-107); GLOMERULAR FILTRATION RATE > 60.0 (>60); GLUCOSE, FASTING 110 MG/DL (70-100); LIPASE 52 U/L (73-393); POTASSIUM SERUM 3.9 MEQ/L (3.5-5.1); SODIUM LEVEL 132 MEQ/L (136-145); TOTAL PROTEIN 6.1 GM/DL (6.4-8.2)
[2020-06-26] MEDS ORDERED: MORPHINE 4 MG/ML 1ML VIAL/SYRINGE (J2270) IV ONE ×2 (01:15→02:30)
[2020-06-26 01:25] LABS: EOSINOPHILS 1 % (0-3); LYMPHOCYTES 24 % (16-44); METAMYELOCYTES 1 % (0-0); MONOCYTES 9 % (0-5); NEUTROPHILS 59 % (28-66); PLATELET ESTIMATE INCREASED (NORMAL)
[2020-06-26 01:26] LABS: POLYCHROMASIA 1+
[2020-06-26] MEDS ORDERED: ISOVUE-370 76% 100ML VIAL As Ordered ONE (01:43)
--- NOTE | 2020-06-26 02:07 | REPVR ---
PROCEDURE INFORMATION: Exam: CT Abdomen And Pelvis With Contrast Exam date and time: 06/25/2020 11:32 PM Age: 45 years old Clinical indication: Abdominal pain; Generalized; Prior surgery; Surgery date: <1 month; Surgery type: Reversal colostomy; Additional info: Fever, gen abd pain TECHNIQUE: Imaging protocol: Computed tomography of the abdomen and pelvis with contrast. Radiation optimization: All CT scans at this facility use at least one of these dose optimization techniques: automated exposure control; mA and/or kV adjustment per patient size (includes targeted exams where dose is matched to clinical indication); or iterative reconstruction. Contrast material: ISO; Contrast volume: 100 ml; Contrast route: INTRAVENOUS (IV); Other contrast: Oral, ggraphin, minimal cc; COMPARISON: CT ABD/PEL W/IV ORAL CONTRAS 06/19/2020 5:35 PM FINDINGS: Lungs: No suspicious mass or airspace process in the visualized lung bases. Liver: Liver appears normal with no focal abnormality. Gallbladder and bile ducts: Gallbladder is present and shows no evidence of gallstone. Pancreas: Pancreas appears normal. No focal mass or peripancreatic inflammation. Spleen: Spleen appears homogeneous without focal mass. Adrenal glands: Adrenal glands are normal in appearance. Kidneys and ureters: Kidneys appear normal, with no stone, solid mass or hydronephrosis. Stomach and bowel: Multiple surgical anastomoses are present in bowel without bowel obstruction. No pneumoperitoneum. Appendix: Appendix is not visualized. Intraperitoneal space: Worsening of multilocular large peripherally enhancing fluid and air collection suggestive of multifocal abdominal abscesses. The component just caudal to the left hepatic lobe now measures 17 x 10 cm cross-sectional, increased in size, and pericolic gutter and pelvic components also appear larger with a large midline pelvic component measuring 11 x 11 cm. Vasculature: No aortic aneurysm. Main portal and splenic veins enhance normally. Urinary bladder: Urinary bladder appears normal. Bones/joints: Bony structures show no acute fracture or destructive process. Soft tissues: Midline abdominal surgical skin nelida are present. IMPRESSION: 1. Increase in size and number of multiple abdominal and pelvic abscesses. Measurements of the largest loculations or collections are given above. 2. No evidence of bowel obstruction Electronically signed by: Angelo Toth On 06/26/2020 02:07:39 AM
[2020-06-26] MEDS ORDERED: ERTAPENEM SODIUM 1 GM in NS MINI-BAG PLUS 50 ML IV ONE (02:15)
[2020-06-26 03:39] VITALS: BP 92/61
== END 2020-06-26 03:50 | disposition short-term general hospital (02) ==
LOC: M ED 22:35
DX: R10.9 Unspecified abdominal pain (principal); T81.43XA Infection following a procedure, organ and space surgical site, initial encounter; R50.9 Fever, unspecified; R11.0 Nausea; R19.7 Diarrhea, unspecified; Z95.9 Presence of cardiac and vascular implant and graft, unspecified; C18.9 Malignant neoplasm of colon, unspecified; J43.9 Emphysema, unspecified; Z86.718 Personal history of other venous thrombosis and embolism; F17.200 Nicotine dependence, unspecified, uncomplicated
CPT/HCPCS: 51701; 71045; 74177; 80048; 80076; 81001; 83605; 83690; 85025; 85610; 85730; 87040; 87798; 87804; 93041; 96361; 96365; 96375; 96376; 99285; J1335; J2270; Q9963; Q9967

== ENCOUNTER 2020-07-06 13:31 | Emergency (ER) | payer OTHER ==
[~2020-07-06] VITALS: Ht 175.3 cm; Wt 55.7 kg
[~2020-07-06 13:31] MED LIST changes: +ASPI-569 PO; -ASPI81TAEC PO
[2020-07-06] MEDS ORDERED: SULF1TAB93 (13:43)
[2020-07-06] MEDS ORDERED: OXYC-517 (13:43)
[2020-07-06] MEDS ORDERED: MORPHINE 4 MG/ML 1ML VIAL/SYRINGE (J2270) IV ONE (14:20)
[2020-07-06] MEDS ORDERED: PIPERACILLIN/TAZOBACTAM SOD 3.375 GM in D5W MINI-BAG PLUS 50 ML IV ONE (14:20)
[2020-07-06] MEDS ORDERED: VANCOMYCIN HCL 1,000 MG, VIAL MATE ADAPTER 1 EACH in NS 250 ML IV SCH (14:20)
[2020-07-06 14:53] LABS: BASO # 0.1 10^3/uL (0.0-0.2); BASO % 0.3 % (0.0-1.0); EOS % 0.1 % (0.0-3.0); HEMATOCRIT 30.1 % (42.0-52.0); HEMOGLOBIN 9.3 g/dl (13.5-17.5); LYMPH # 1.4 10^3/uL (1.5-5.0); LYMPH % 8.7 % (24.0-44.0); MEAN CORPUSCULAR HEMOGLOBIN 29.7 pg (27.0-33.0); MEAN CORPUSCULAR HGB CONC 30.9 g/dl (32.0-36.5); MEAN CORPUSCULAR VOLUME 96.2 fl (80.0-96.0); MONO # 1.3 10^3/uL (0.0-0.8); MONO % 7.9 % (2.0-8.0); NEUTROPHILS # 13.4 10^3/uL (1.5-8.5); NEUTROPHILS % 82.4 % (36.0-66.0); PLATELET COUNT, AUTOMATED 672 10^3/uL (150-450); RED BLOOD COUNT 3.13 10^6/uL (4.30-6.10); WHITE BLOOD COUNT 16.3 10^3/uL (4.0-10.0)
[2020-07-06 15:11] LABS: BLOOD UREA NITROGEN 5 MG/DL (7-18); CALCIUM LEVEL 8.9 MG/DL (8.5-10.1); CARBON DIOXIDE LEVEL 30 MEQ/L (21-32); CHLORIDE LEVEL 99 MEQ/L (98-107); CREATININE FOR GFR 0.79 MG/DL (0.70-1.30); GLOMERULAR FILTRATION RATE > 60.0 (>60); GLUCOSE, FASTING 101 MG/DL (70-100); POTASSIUM SERUM 4.5 MEQ/L (3.5-5.1); SODIUM LEVEL 132 MEQ/L (136-145)
[2020-07-06 15:27] LABS: ERYTHROCYTE SEDIMENTATION RATE 92 mm/hr (0-15)
[2020-07-06] MEDS ORDERED: fentaNYL 100 MCG/2 ML INJECTION (J3010) IV ONE ×3 (15:35→19:30)
[2020-07-06] MEDS ORDERED: ISOVUE-370 76% 100ML VIAL As Ordered ONE (15:39)
--- NOTE | 2020-07-06 16:42 | REP ---
INDICATION: recent colostomy and ileostomy reversal, now with drainage. COMPARISON: 06/26/2020 TECHNIQUE: Axial contrast-enhanced images from the lung bases to the pubic symphysis using oral and 100 cc Isovue 370 intravenous contrast material. Coronal and sagittal reformations obtained. This CT examination was performed using the following dose reduction techniques: Automated exposure control, adjustment of mA and/or kv according to the patient's size, and the use of iterative reconstruction technique. FINDINGS: Irregular multiloculated fluid collections with scattered gas are are again identified and minimally decreased in volume as compared to prior examination. Findings are most compatible with multiloculated abscesses. However differentiation between bowel and abnormal fluid collections is extremely difficult due to the lack of intraluminal contrast opacification. Fluid and stranding along with small amounts of gas are also identified through the right anterior abdominal wall likely at the site of prior ileostomy and suspicious for draining open wound and possible fistula formation. Liver, spleen, pancreas, gallbladder, bilateral adrenal glands and kidneys are normal. Pelvis demonstrates normal bladder. Small linear foreign body material in the deep pelvis likely represent dropped surgical clips. Abdominal aorta and vasculature are grossly normal. Musculoskeletal structures are intact. Lung bases are clear. IMPRESSION: Irregular multiloculated fluid collections with internal scattered pockets of gas are again identified but somewhat decreased in volume as compared to 06/26/2020. Findings are again most compatible with multiloculated abscesses. Draining wound via the right anterior abdominal wall likely at the site of prior ileostomy noted. <Electronically signed by Marco Coon > 07/06/20 [id number]
[2020-07-06 20:18] VITALS: BP 119/70
== END 2020-07-06 20:22 | disposition short-term general hospital (02) ==
LOC: M ED 13:31
DX: L02.211 Cutaneous abscess of abdominal wall (principal); Z98.890 Other specified postprocedural states
CPT/HCPCS: 36415; 74177; 80048; 83605; 85025; 85652; 86140; 87040; 87070; 87077; 87186; 96365; 96366; 96368; 96375; 96376; 99284; J2270; J2543; J3010; J3370; Q9967; U0002

== ENCOUNTER → 2020-08-31 | Outpatient (REF) | payer OTHER ==
[~2020-08-31] MED LIST changes: -GNP8.6TA PO; +GNP8.6TA7 PO; +OXYC-517; +SULF1TAB93
== END ==
LOC: M LAB REF 12:08
PROVIDERS: ATTEND Family Medicine Addiction Medicine
DX: F11.10 Opioid abuse, uncomplicated (principal)

== ENCOUNTER 2021-11-29 15:28 | Emergency (ER) | payer OTHER ==
[~2021-11-29] VITALS: Ht 175.3 cm; Wt 56.7 kg
[2021-11-29 15:28] VITALS: BP 150/87
[~2021-11-29 15:28] MED LIST changes: +BACTDSTA; -GNP8.6TA7 PO; +ONDA-84 PO; -ONDA8TAB10 PO; +SENN-111 PO; -SULF1TAB93
[2021-11-29] MEDS ORDERED: BUPR1FIL (16:09)
== END 2021-11-29 18:13 | disposition left against medical advice (07) ==
LOC: M ED 15:28
DX: Z53.21 Procedure and treatment not carried out due to patient leaving prior to being seen by health care provider (principal)

== ENCOUNTER 2021-12-04 08:01 | Emergency (ER) | payer OTHER ==
[~2021-12-04] VITALS: Ht 175.3 cm; Wt 57.4 kg
[~2021-12-04 08:01] MED LIST changes: +BUPR1FIL
[2021-12-04] MEDS ORDERED: ASPI81TA26 PO (08:09)
[2021-12-04] MEDS ORDERED: KETOROLAC 30 MG/ML 1ML VIAL IM ONE (08:35)
[2021-12-04] MEDS ORDERED: CYCLOBENZAPRINE 10MG TABLET PO ONE (10:45)
[2021-12-04 11:23] VITALS: BP 139/80
== END 2021-12-04 11:23 | disposition home or self-care (01) ==
LOC: M ED 08:01
DX: M25.552 Pain in left hip (principal); M54.50 Low back pain, unspecified; C18.9 Malignant neoplasm of colon, unspecified; Z79.82 Long term (current) use of aspirin
CPT/HCPCS: 73502; 93971; 96372; 99283; J1885

== ENCOUNTER → 2022-01-18 | Outpatient (CLI) | payer OTHER ==
[~2022-01-18] MED LIST changes: +ASPI81TA26 PO; +GASTROGRAFIN SOLUTION 30ML (Q9963) As Ordered ONE; +ISOVUE-370 76% 100ML VIAL As Ordered ONE; +OXYC-517 PO; +PERC5TAB12 PO
== END ==
LOC: M RAD 15:07
PROVIDERS: ATTEND Internal Medicine
DX: C18.9 Malignant neoplasm of colon, unspecified (principal); R93.2 Abnormal findings on diagnostic imaging of liver and biliary tract
CPT/HCPCS: 71260; 74177; Q9963; Q9967

== ENCOUNTER → 2022-01-24 | Outpatient (CLI) | payer OTHER ==
[~2022-01-24] MED LIST changes: -GASTROGRAFIN SOLUTION 30ML (Q9963) As Ordered ONE; -ISOVUE-370 76% 100ML VIAL As Ordered ONE; +OXYC10TA12 PO
== END ==
LOC: M RAD 09:17
PROVIDERS: ATTEND Internal Medicine
DX: C18.7 Malignant neoplasm of sigmoid colon (principal)
CPT/HCPCS: 78306; A9503

== ENCOUNTER → 2022-01-26 | Outpatient (CLI) | payer OTHER ==
[~2022-01-26] MED LIST changes: +OXYC-141 PO
== END ==
LOC: M ONCR 13:45
PROVIDERS: ATTEND General Practice
DX: C18.9 Malignant neoplasm of colon, unspecified (principal); F17.290 Nicotine dependence, other tobacco product, uncomplicated; J43.9 Emphysema, unspecified; Z79.891 Long term (current) use of opiate analgesic; Z80.3 Family history of malignant neoplasm of breast; Z82.69 Family history of other diseases of the musculoskeletal system and connective tissue; Z86.718 Personal history of other venous thrombosis and embolism; Z92.21 Personal history of antineoplastic chemotherapy

== ENCOUNTER 2022-01-30 04:30 | Emergency (ER) | payer OTHER ==
[~2022-01-30] VITALS: Ht 175.3 cm; Wt 55.9 kg
[~2022-01-30 04:30] MED LIST changes: -OXYC-141 PO
[2022-01-30 04:31] VITALS: BP 110/77
[2022-01-30] MEDS ORDERED: OXYC-141 PO ×2 (04:38)
[2022-02-01] MEDS ORDERED: CANEMIS41 XX (08:09)
[2022-02-01] MEDS ORDERED: knee scooter (08:10)
[2022-02-01] MEDS ORDERED: SCOOTER (08:10)
== END 2022-01-30 06:06 | disposition left against medical advice (07) ==
LOC: M ED 04:30
DX: Z53.21 Procedure and treatment not carried out due to patient leaving prior to being seen by health care provider (principal)

== ENCOUNTER 2022-02-01 13:53 | Outpatient (RCR) | payer OTHER ==
[~2022-02-01 13:53] MED LIST changes: +CANEMIS41 XX; +OXYC-141 PO; +SCOOTER; +knee scooter
[2022-02-01] MEDS ORDERED: MORP-69 PO (14:27)
[2022-02-01] MEDS ORDERED: OXYC-517 PO (14:27)
[2022-02-06] MEDS ORDERED: HYDR4TAB PO (09:50)
[2022-02-10] MEDS ORDERED: DILA4TAB13 PO (14:11)
[2022-02-10] MEDS ORDERED: FENT1DIS14 TOP (14:11)
== END 2022-02-03 ==
LOC: M ONCR 13:53
PROVIDERS: ATTEND General Practice
DX: C79.51 Secondary malignant neoplasm of bone (principal)

== ENCOUNTER → 2022-02-10 | Outpatient (CLI) | payer OTHER ==
[~2022-02-10] MED LIST changes: +DILA4TAB13 PO; +FENT1DIS14 TOP; +HYDR4TAB PO; +MORP-69 PO
== END ==
LOC: M PAL 12:55
PROVIDERS: ATTEND Nurse Practitioner Adult Health
DX: C18.8 Malignant neoplasm of overlapping sites of colon (principal); C18.6 Malignant neoplasm of descending colon; C77.2 Secondary and unspecified malignant neoplasm of intra-abdominal lymph nodes; A04.72 Enterocolitis due to Clostridium difficile, not specified as recurrent; K65.9 Peritonitis, unspecified; G89.3 Neoplasm related pain (acute) (chronic); I82.4Z1 Acute embolism and thrombosis of unspecified deep veins of right distal lower extremity; J43.8 Other emphysema; J21.9 Acute bronchiolitis, unspecified; K76.9 Liver disease, unspecified; M25.552 Pain in left hip; Z90.6 Acquired absence of other parts of urinary tract; R91.1 Solitary pulmonary nodule; Z93.50 Unspecified cystostomy status; Z92.21 Personal history of antineoplastic chemotherapy; Z92.3 Personal history of irradiation; Z51.5 Encounter for palliative care; Z79.891 Long term (current) use of opiate analgesic; Z80.3 Family history of malignant neoplasm of breast; Z87.891 Personal history of nicotine dependence; Z79.899 Other long term (current) drug therapy

== ENCOUNTER → 2022-02-10 | Outpatient (CLI) | payer OTHER ==
[~2022-02-10] MED LIST changes: +LIDOCAINE 1% MDV 20ML VIAL As Ordered ONE
[2022-02-10 10:45] VITALS: BP 117/75
== END ==
LOC: M IRPRO 08:38
PROVIDERS: ATTEND Nurse Practitioner
DX: C78.7 Secondary malignant neoplasm of liver and intrahepatic bile duct (principal); C18.9 Malignant neoplasm of colon, unspecified

== ENCOUNTER 2022-02-20 15:19 | Outpatient (RCR) | payer OTHER ==
[~2022-02-20 15:19] MED LIST changes: -LIDOCAINE 1% MDV 20ML VIAL As Ordered ONE
[2022-02-23] MEDS ORDERED: FENT1PAT25 TD (15:42)
[2022-02-23] MEDS ORDERED: GABA-282 PO (15:45)
[2022-02-23] MEDS ORDERED: DILA4TAB13 PO (15:45)
[2022-02-24] MEDS ORDERED: FENT1PAT25 TD (12:24)
[2022-03-02] MEDS ORDERED: ONDA-84 PO ×2 (08:55→14:56)
[2022-03-02] MEDS ORDERED: PROC10TA5 PO ×2 (08:55→14:56)
[2022-03-07] MEDS ORDERED: GABA-282 PO (15:06)
[2022-03-07] MEDS ORDERED: DILA4TAB13 PO (15:06)
[2022-03-20] MEDS ORDERED: FENT1PAT25 TD (12:58)
[2022-03-20] MEDS ORDERED: DILA4TAB13 PO (12:58)
== END 2022-03-06 ==
LOC: M ONCR 15:19
PROVIDERS: ATTEND General Practice
DX: C79.51 Secondary malignant neoplasm of bone (principal)

== ENCOUNTER → 2022-02-23 | Outpatient (CLI) | payer OTHER ==
[~2022-02-23] VITALS: Ht 177.8 cm; Wt 54.7 kg
[~2022-02-23] MED LIST changes: +FENT1PAT25 TD; +GABA-282 PO
[2022-02-23 15:21] VITALS: BP 105/74
== END ==
LOC: M PAL 15:09
PROVIDERS: ATTEND Nurse Practitioner Adult Health
DX: C18.6 Malignant neoplasm of descending colon (principal); C18.7 Malignant neoplasm of sigmoid colon; G89.3 Neoplasm related pain (acute) (chronic); I82.401 Acute embolism and thrombosis of unspecified deep veins of right lower extremity; J21.9 Acute bronchiolitis, unspecified; J43.9 Emphysema, unspecified; M54.50 Low back pain, unspecified; M25.552 Pain in left hip; M25.562 Pain in left knee; F17.210 Nicotine dependence, cigarettes, uncomplicated; Z80.3 Family history of malignant neoplasm of breast; Z79.891 Long term (current) use of opiate analgesic; Z92.3 Personal history of irradiation; Z92.21 Personal history of antineoplastic chemotherapy; Z51.5 Encounter for palliative care

== ENCOUNTER → 2022-03-07 | Outpatient (CLI) | payer OTHER ==
[~2022-03-07] VITALS: Ht 175.3 cm; Wt 58.1 kg
[~2022-03-07] MED LIST changes: +PROC10TA5 PO
[2022-03-07 14:42] VITALS: BP 99/62
== END ==
LOC: M PAL 14:21
PROVIDERS: ATTEND Nurse Practitioner Adult Health
DX: C18.6 Malignant neoplasm of descending colon (principal); C18.7 Malignant neoplasm of sigmoid colon; G89.3 Neoplasm related pain (acute) (chronic); Z92.3 Personal history of irradiation; Z92.21 Personal history of antineoplastic chemotherapy; J43.9 Emphysema, unspecified; Z86.718 Personal history of other venous thrombosis and embolism; F17.290 Nicotine dependence, other tobacco product, uncomplicated; Z51.5 Encounter for palliative care; Z79.891 Long term (current) use of opiate analgesic; Z79.899 Other long term (current) drug therapy

== ENCOUNTER → 2022-03-28 | Outpatient (CLI) | payer OTHER ==
[~2022-03-28] VITALS: Ht 175.3 cm; Wt 57.0 kg
[2022-03-28 11:10] VITALS: BP 127/79
== END ==
LOC: M PAL 11:00
PROVIDERS: ATTEND Nurse Practitioner Adult Health
DX: C18.6 Malignant neoplasm of descending colon (principal); C18.7 Malignant neoplasm of sigmoid colon; G89.3 Neoplasm related pain (acute) (chronic); F11.11 Opioid abuse, in remission; F17.290 Nicotine dependence, other tobacco product, uncomplicated; I82.401 Acute embolism and thrombosis of unspecified deep veins of right lower extremity; J43.9 Emphysema, unspecified; K21.9 Gastro-esophageal reflux disease without esophagitis; K65.1 Peritoneal abscess; Z92.3 Personal history of irradiation; Z79.891 Long term (current) use of opiate analgesic; Z79.899 Other long term (current) drug therapy; Z51.5 Encounter for palliative care; Z80.3 Family history of malignant neoplasm of breast

== ENCOUNTER 2022-04-05 23:55 | Emergency (ER) | payer OTHER ==
[~2022-04-05] VITALS: Ht 175.3 cm; Wt 56.8 kg
[2022-04-06] MEDS ORDERED: MORPHINE 4 MG/ML 1ML VIAL IV ONE (00:30)
[2022-04-06] MEDS ORDERED: NS 1,000 ML IV SCH (00:30)
[2022-04-06] MEDS ORDERED: ONDANSETRON 4MG 2ML VIAL IV ONE (00:30)
[2022-04-06 00:45] LABS: BASO # 0.1 10^3/uL (0.0-0.2); BASO % 0.5 % (0.0-1.0); EOS % 0.2 % (0.0-3.0); HEMATOCRIT 50.7 % (42.0-52.0); HEMOGLOBIN 17.2 g/dl (13.5-17.5); LYMPH # 1.4 10^3/uL (1.5-5.0); MEAN CORPUSCULAR HEMOGLOBIN 32.3 pg (27.0-33.0); MEAN CORPUSCULAR HGB CONC 33.9 g/dl (32.0-36.5); MEAN CORPUSCULAR VOLUME 95.1 fl (80.0-96.0); MONO # 1.1 10^3/uL (0.0-0.8); MONO % 8.9 % (2.0-8.0); NEUTROPHILS % 78.9 % (36.0-66.0); PLATELET COUNT, AUTOMATED 386 10^3/uL (150-450); RED BLOOD COUNT 5.33 10^6/uL (4.30-6.10); WHITE BLOOD COUNT 12.7 10^3/uL (4.0-10.0)
[2022-04-06 00:48] LABS: LIPASE 27 U/L (12-53)
[2022-04-06 00:50] LABS: BILIRUBIN,DIRECT 0.5 MG/DL (<0.4)
[2022-04-06 00:55] LABS: RSV AMPLIFICATION NEGATIVE (NEGATIVE)
[2022-04-06] MEDS ORDERED: GI COCKTAIL 50ML BTL(HYOSCYAMINE/MAALOX/LIDOCAINE VISCOUS)(1:3:1) PO ONE (01:20)
[2022-04-06] MEDS ORDERED: PANTOPRAZOLE 40MG VIAL IV ONE (01:20)
[2022-04-06 01:24] LABS: ALBUMIN 3.6 G/DL (3.2-5.2); ALKALINE PHOSPHATASE 1291 U/L (46-116); ALT/SGPT 141 U/L (7.0-40); AST/SGOT 87 U/L (<34); BILIRUBIN,TOTAL 1.1 MG/DL (0.3-1.2); BLOOD UREA NITROGEN 18 MG/DL (9-23); CALCIUM LEVEL 9.6 MG/DL (8.5-10.1); CARBON DIOXIDE LEVEL 30 MMOL/L (20-31); CHLORIDE LEVEL 96 MMOL/L (98-107); CREATININE FOR GFR 0.82 MG/DL (0.70-1.30); GLOMERULAR FILTRATION RATE > 60.0 (>60); GLUCOSE, FASTING 99 MG/DL (60-100); POTASSIUM SERUM 4.3 MMOL/L (3.5-5.1); SODIUM LEVEL 136 MMOL/L (136-145); TOTAL PROTEIN 7.1 G/DL (5.7-8.2)
[2022-04-06] MEDS ORDERED: ISOVUE-370 76% 100ML VIAL As Ordered ONE (01:43)
[2022-04-06 03:31] VITALS: BP 121/80
[2022-04-06] MEDS ORDERED: ONDA4TAB6 PO (03:33)
== END 2022-04-06 03:51 | disposition home or self-care (01) ==
LOC: M ED 23:55 → EDBD 23:55 → M ED 04-06 03:51
DX: R11.10 Vomiting, unspecified (principal); C18.9 Malignant neoplasm of colon, unspecified; C78.7 Secondary malignant neoplasm of liver and intrahepatic bile duct; C34.90 Malignant neoplasm of unspecified part of unspecified bronchus or lung; F17.200 Nicotine dependence, unspecified, uncomplicated; Z79.891 Long term (current) use of opiate analgesic; Z79.83 Long term (current) use of bisphosphonates; Z79.899 Other long term (current) drug therapy
CPT/HCPCS: 74177; 80048; 80076; 83690; 85025; 87631; 93041; 94760; 96361; 96374; 96375; 99285; C9113; J2270; J2405

== ENCOUNTER → 2022-05-11 | Outpatient (CLI) | payer OTHER ==
[~2022-05-11] MED LIST changes: +MAGN200T PO; +ONDA4TAB6 PO; +OXYC20TA2 PO
== END ==
LOC: M PAL 09:37
PROVIDERS: ATTEND Nurse Practitioner Family
DX: C18.6 Malignant neoplasm of descending colon (principal); C18.7 Malignant neoplasm of sigmoid colon; G89.3 Neoplasm related pain (acute) (chronic); R11.10 Vomiting, unspecified; Z92.3 Personal history of irradiation; Z92.21 Personal history of antineoplastic chemotherapy; Z51.5 Encounter for palliative care; R22.42 Localized swelling, mass and lump, left lower limb; Z86.718 Personal history of other venous thrombosis and embolism; J43.9 Emphysema, unspecified; F17.290 Nicotine dependence, other tobacco product, uncomplicated; Z79.891 Long term (current) use of opiate analgesic; Z79.899 Other long term (current) drug therapy

== ENCOUNTER → 2022-06-22 | Outpatient (CLI) | payer OTHER ==
[~2022-06-22] MED LIST changes: +ESOM0.1C PO
== END ==
LOC: M ONCR 13:38
PROVIDERS: ATTEND General Practice
DX: C18.9 Malignant neoplasm of colon, unspecified (principal); C79.51 Secondary malignant neoplasm of bone; F17.290 Nicotine dependence, other tobacco product, uncomplicated; Z79.891 Long term (current) use of opiate analgesic; Z79.899 Other long term (current) drug therapy; Z92.3 Personal history of irradiation; Z92.21 Personal history of antineoplastic chemotherapy

== ENCOUNTER → 2022-06-22 | Outpatient (CLI) | payer MEDICARE, OTHER ==
[~2022-06-22] VITALS: Ht 175.3 cm; Wt 54.1 kg
[2022-06-22 13:48] VITALS: BP 97/68
== END ==
LOC: M PAL 13:36
PROVIDERS: ATTEND Nurse Practitioner Adult Health
DX: C18.6 Malignant neoplasm of descending colon (principal); C18.7 Malignant neoplasm of sigmoid colon; Z51.5 Encounter for palliative care; G89.3 Neoplasm related pain (acute) (chronic); Z92.3 Personal history of irradiation; Z92.21 Personal history of antineoplastic chemotherapy; Z86.718 Personal history of other venous thrombosis and embolism; F17.290 Nicotine dependence, other tobacco product, uncomplicated; R11.0 Nausea; J43.9 Emphysema, unspecified; Z79.891 Long term (current) use of opiate analgesic; Z79.899 Other long term (current) drug therapy

== ENCOUNTER 2022-07-03 12:53 | Outpatient (RCR) | payer OTHER | END 2022-07-04 | LOC: M ONCR 12:53 | PROVIDERS: ATTEND General Practice | DX: C79.51 Secondary malignant neoplasm of bone (principal) ==

== ENCOUNTER → 2022-07-19 | Outpatient (CLI) | payer OTHER ==
[~2022-07-19] VITALS: Ht 170.2 cm; Wt 54.3 kg
[~2022-07-19] MED LIST changes: +DEXA4TA PO; +FENT75DI29 TD
[2022-07-19 08:54] VITALS: BP 124/72
== END ==
LOC: M PAL 08:48
PROVIDERS: ATTEND Nurse Practitioner Adult Health
DX: C18.6 Malignant neoplasm of descending colon (principal); C18.7 Malignant neoplasm of sigmoid colon; Z51.5 Encounter for palliative care; Z92.3 Personal history of irradiation; Z92.21 Personal history of antineoplastic chemotherapy; M25.552 Pain in left hip; Z86.718 Personal history of other venous thrombosis and embolism; J43.9 Emphysema, unspecified; F17.290 Nicotine dependence, other tobacco product, uncomplicated; G89.3 Neoplasm related pain (acute) (chronic); R11.0 Nausea; R06.02 Shortness of breath; Z79.899 Other long term (current) drug therapy; Z79.891 Long term (current) use of opiate analgesic

== ENCOUNTER 2022-07-24 10:00 | Outpatient (RCR) | payer OTHER ==
[2022-08-02] MEDS ORDERED: ONDA-84 (08:53)
== END 2022-08-04 ==
LOC: M ONCR 10:00
PROVIDERS: ATTEND General Practice
DX: C79.51 Secondary malignant neoplasm of bone (principal)

== ENCOUNTER 2022-08-02 08:43 | Emergency (ER) | payer OTHER ==
[~2022-08-02] VITALS: Ht 175.3 cm; Wt 54.5 kg
[2022-08-02 08:53] VITALS: BP 121/91
[2022-08-02] MEDS ORDERED: ONDA-84 (08:53)
[2022-08-02] MEDS ORDERED: HYDROMORPHONE HCL 0.5 MG/ 0.5 ML SYRINGE IV PRN (08:55)
[2022-08-02] MEDS ORDERED: METOCLOPRAMIDE INJ 10MG/2ML VIAL IV ONE (08:55)
[2022-08-02] MEDS ORDERED: NS 1,000 ML IV ONE (08:55)
[2022-08-02] MEDS ORDERED: KETOROLAC 30 MG/ML 1ML VIAL IV ONE (08:55)
[2022-08-02 09:16] LABS: BASO % 0.6 % (0.0-1.0); EOS % 0.9 % (0.0-3.0); HEMOGLOBIN 15.1 g/dl (13.5-17.5); LYMPH % 22.1 % (24.0-44.0); MEAN CORPUSCULAR HEMOGLOBIN 34.1 pg (27.0-33.0); MEAN CORPUSCULAR HGB CONC 35.1 g/dl (32.0-36.5); MEAN CORPUSCULAR VOLUME 97.1 fl (80.0-96.0); MONO # 0.6 10^3/uL (0.0-0.8); MONO % 11.8 % (2.0-8.0); NEUTROPHILS % 64.4 % (36.0-66.0); PLATELET COUNT, AUTOMATED 260 10^3/uL (150-450); RED BLOOD COUNT 4.43 10^6/uL (4.30-6.10); WHITE BLOOD COUNT 4.7 10^3/uL (4.0-10.0)
[2022-08-02 09:34] LABS: LIPASE 23 U/L (12-53)
[2022-08-02 09:36] LABS: ALBUMIN 3.5 G/DL (3.2-5.2); ALKALINE PHOSPHATASE 765 U/L (46-116); ALT/SGPT 89 U/L (7.0-40); AST/SGOT 58 U/L (<34); BILIRUBIN,DIRECT 0.5 MG/DL (<0.4); BLOOD UREA NITROGEN 13 MG/DL (9-23); CALCIUM LEVEL 9.1 MG/DL (8.5-10.1); CARBON DIOXIDE LEVEL 32 MMOL/L (20-31); CHLORIDE LEVEL 98 MMOL/L (98-107); CREATININE FOR GFR 0.79 MG/DL (0.70-1.30); GLOMERULAR FILTRATION RATE > 60.0 (>60); GLUCOSE, FASTING 92 MG/DL (60-100); POTASSIUM SERUM 3.6 MMOL/L (3.5-5.1); SODIUM LEVEL 136 MMOL/L (136-145); TOTAL PROTEIN 6.2 G/DL (5.7-8.2)
== END 2022-08-02 09:30 | disposition left against medical advice (07) ==
LOC: EDBD 08:43 → M ED 08:43
DX: R11.10 Vomiting, unspecified (principal); C18.9 Malignant neoplasm of colon, unspecified; J44.9 Chronic obstructive pulmonary disease, unspecified; F17.200 Nicotine dependence, unspecified, uncomplicated; Z86.718 Personal history of other venous thrombosis and embolism
CPT/HCPCS: 80048; 80076; 83690; 83735; 85025; 93005; 93041; 96374; 96375; 99284; J1170; J1885; J2765

== ENCOUNTER → 2022-08-17 | Outpatient (CLI) | payer OTHER ==
[~2022-08-17] MED LIST changes: +OXYC30TA PO; -SENN-111 PO; +SENN-188 PO
== END ==
LOC: M PAL 08:02
PROVIDERS: ATTEND Nurse Practitioner Family
DX: C18.6 Malignant neoplasm of descending colon (principal); C18.7 Malignant neoplasm of sigmoid colon; Z51.5 Encounter for palliative care; G89.3 Neoplasm related pain (acute) (chronic); Z92.3 Personal history of irradiation; Z92.21 Personal history of antineoplastic chemotherapy; Z86.718 Personal history of other venous thrombosis and embolism; F17.290 Nicotine dependence, other tobacco product, uncomplicated; J43.9 Emphysema, unspecified; Z79.891 Long term (current) use of opiate analgesic; Z79.899 Other long term (current) drug therapy

== ENCOUNTER 2022-09-22 17:20 | Emergency (ER) | payer OTHER ==
[~2022-09-22] VITALS: Ht 175.3 cm; Wt 51.0 kg
[2022-09-22] MEDS ORDERED: oxyCODONE 5MG TAB PO ONE (17:55)
[2022-09-22 18:23] LABS: BASO # 0.1 10^3/uL (0.0-0.2); BASO % 0.4 % (0.0-1.0); EOS % 0.3 % (0.0-3.0); HEMATOCRIT 38.8 % (42.0-52.0); HEMOGLOBIN 14.3 g/dl (13.5-17.5); LYMPH # 0.8 10^3/uL (1.5-5.0); LYMPH % 7.1 % (24.0-44.0); MEAN CORPUSCULAR HEMOGLOBIN 33.3 pg (27.0-33.0); MEAN CORPUSCULAR VOLUME 90.4 fl (80.0-96.0); MONO # 1.1 10^3/uL (0.0-0.8); MONO % 9.9 % (2.0-8.0); NEUTROPHILS # 9.4 10^3/uL (1.5-8.5); NEUTROPHILS % 81.8 % (36.0-66.0); PLATELET COUNT, AUTOMATED 215 10^3/uL (150-450); RED BLOOD COUNT 4.29 10^6/uL (4.30-6.10); WHITE BLOOD COUNT 11.5 10^3/uL (4.0-10.0)
[2022-09-22 18:27] LABS: MEAN CORPUSCULAR HGB CONC 36.9 g/dl (32.0-36.5)
[2022-09-22 18:33] LABS: INR 0.9; PROTHROMBIN TIME 12.3 SECONDS (12.5-14.5)
[2022-09-22 18:34] LABS: PARTIAL THROMBOPLASTIN TIME 25.8 SECONDS (24.8-34.2)
[2022-09-22 18:46] VITALS: BP 109/81
[2022-09-22 19:03] LABS: ALBUMIN 2.7 G/DL (3.2-5.2); ALT/SGPT 487 U/L (7.0-40); AST/SGOT 347 U/L (<34); BILIRUBIN,DIRECT 21.9 MG/DL (<0.4); BLOOD UREA NITROGEN 10 MG/DL (9-23); CALCIUM LEVEL 9.4 MG/DL (8.5-10.1); CARBON DIOXIDE LEVEL 29 MMOL/L (20-31); CHLORIDE LEVEL 99 MMOL/L (98-107); CREATININE FOR GFR 0.65 MG/DL (0.70-1.30); GLOMERULAR FILTRATION RATE > 60.0 (>60); GLUCOSE, FASTING 99 MG/DL (60-100); LIPASE 17 U/L (12-53); POTASSIUM SERUM 4.8 MMOL/L (3.5-5.1); SODIUM LEVEL 134 MMOL/L (136-145); TOTAL PROTEIN 6.3 G/DL (5.7-8.2)
[2022-09-22 19:04] LABS: BILIRUBIN,TOTAL 30.7 MG/DL (0.3-1.2)
[2022-09-26 08:33] LABS: ALKALINE PHOSPHATASE > 2300 U/L (46-116)
== END 2022-09-22 19:35 | disposition home or self-care (01) ==
LOC: M ED 17:20
DX: C18.9 Malignant neoplasm of colon, unspecified (principal); F17.200 Nicotine dependence, unspecified, uncomplicated; M54.50 Low back pain, unspecified; Z86.718 Personal history of other venous thrombosis and embolism; Z79.891 Long term (current) use of opiate analgesic; Z79.83 Long term (current) use of bisphosphonates; Z53.9 Procedure and treatment not carried out, unspecified reason

== ENCOUNTER 2022-09-25 16:19 | Emergency (ER) | payer OTHER ==
[~2022-09-25] VITALS: Ht 175.3 cm; Wt 50.3 kg
[2022-09-25 16:35] VITALS: BP 143/91
[2022-09-25] MEDS ORDERED: ONDANSETRON 4MG 2ML VIAL IV ONE (16:45)
[2022-09-25 17:32] LABS: INR 0.85; PARTIAL THROMBOPLASTIN TIME 25.2 SECONDS (24.8-34.2); PROTHROMBIN TIME 11.8 SECONDS (12.5-14.5)
[2022-09-25 17:45] LABS: RSV AMPLIFICATION NEGATIVE (NEGATIVE)
[2022-09-25 18:05] LABS: BASO # 0.1 10^3/uL (0.0-0.2); BASO % 0.5 % (0.0-1.0); EOS # 0.1 10^3/uL (0.0-0.5); EOS % 0.4 % (0.0-3.0); HEMATOCRIT 37.7 % (42.0-52.0); HEMOGLOBIN 13.8 g/dl (13.5-17.5); LYMPH # 1.2 10^3/uL (1.5-5.0); LYMPH % 9.7 % (24.0-44.0); MEAN CORPUSCULAR HEMOGLOBIN 32.5 pg (27.0-33.0); MEAN CORPUSCULAR VOLUME 88.9 fl (80.0-96.0); MONO # 1.2 10^3/uL (0.0-0.8); NEUTROPHILS # 9.4 10^3/uL (1.5-8.5); NEUTROPHILS % 78.9 % (36.0-66.0); PLATELET COUNT, AUTOMATED 252 10^3/uL (150-450); RED BLOOD COUNT 4.24 10^6/uL (4.30-6.10)
[2022-09-25 18:11] LABS: MEAN CORPUSCULAR HGB CONC 36.6 g/dl (32.0-36.5)
[2022-09-25 18:19] LABS: ALBUMIN 2.6 G/DL (3.2-5.2); ALT/SGPT 562 U/L (7.0-40); AMYLASE 48 U/L (30-118); AST/SGOT 474 U/L (<34); BILIRUBIN,DIRECT > 22.5 MG/DL (<0.4); BLOOD UREA NITROGEN 11 MG/DL (9-23); CALCIUM LEVEL 9.5 MG/DL (8.5-10.1); CARBON DIOXIDE LEVEL 30 MMOL/L (20-31); CHLORIDE LEVEL 97 MMOL/L (98-107); GLOMERULAR FILTRATION RATE > 60.0 (>60); GLUCOSE, FASTING 104 MG/DL (60-100); LIPASE 18 U/L (12-53); POTASSIUM SERUM 3.6 MMOL/L (3.5-5.1); SODIUM LEVEL 132 MMOL/L (136-145); TOTAL PROTEIN 6.1 G/DL (5.7-8.2)
[2022-09-25 18:29] LABS: BILIRUBIN,TOTAL 33.5 MG/DL (0.3-1.2)
[2022-09-25] MEDS ORDERED: MORPHINE 4 MG/ML 1ML VIAL IV PRN (18:40)
[2022-09-25] MEDS ORDERED: HYDROMORPHONE HCL 0.5 MG/ 0.5 ML SYRINGE IV ONE (19:40)
[2022-09-26] MEDS ORDERED: ONDA-196 PO (06:13)
[2022-09-28] MEDS ORDERED: DEXA4TA PO (10:17)
[2022-09-28] MEDS ORDERED: FENT100D25 TD (10:17)
[2022-09-28] MEDS ORDERED: GABA-282 PO (10:17)
[2022-09-28] MEDS ORDERED: OXYC30TA PO (10:17)
== END 2022-09-25 20:25 | disposition left against medical advice (07) ==
LOC: M ED 16:19 → CANBEDREQ 20:03 → M ED 20:25
DX: C78.7 Secondary malignant neoplasm of liver and intrahepatic bile duct (principal); R74.01 Elevation of levels of liver transaminase levels; C34.90 Malignant neoplasm of unspecified part of unspecified bronchus or lung; C18.4 Malignant neoplasm of transverse colon; F17.200 Nicotine dependence, unspecified, uncomplicated; M54.50 Low back pain, unspecified; Z79.83 Long term (current) use of bisphosphonates; Z79.891 Long term (current) use of opiate analgesic; Z79.899 Other long term (current) drug therapy; Z53.9 Procedure and treatment not carried out, unspecified reason
CPT/HCPCS: 76705; 80048; 80076; 82150; 83605; 83690; 85025; 85610; 85730; 87631; 93005; 93041; 94760; 96374; 96375; 99284; J2405

== ENCOUNTER 2022-09-25 21:53 | Emergency (ER) | payer OTHER ==
[~2022-09-25] VITALS: Ht 175.3 cm; Wt 50.2 kg
[2022-09-25 21:54] VITALS: BP 131/80
[2022-09-26] MEDS ORDERED: ONDA-196 PO (06:13)
== END 2022-09-26 00:45 | disposition left against medical advice (07) ==
LOC: M ED 21:53
DX: Z53.21 Procedure and treatment not carried out due to patient leaving prior to being seen by health care provider (principal)

== ENCOUNTER 2022-09-26 03:36 | Inpatient (IN) | payer OTHER ==
[2022-09-26] MEDS ORDERED: HYDROMORPHONE HCL 0.5 MG/ 0.5 ML SYRINGE IV PRN ×2 (05:10→05:55)
[2022-09-26] MEDS ORDERED: PROMETHAZINE 25MG/ML 1ML VIAL IV ONE (05:10)
[2022-09-26] MEDS ORDERED: NS 1,000 ML IV SCH (05:55)
[2022-09-26] MEDS ORDERED: NS 1,000 ML IV ONE (05:55)
[2022-09-26] MEDS ORDERED: ONDA-196 PO (06:13)
[2022-09-26] MEDS ORDERED: HOME MED LIST COMPLETE! XX SCH (06:15)
[2022-09-26 08:00] LABS: BASO % 0.2 % (0.0-1.0); EOS # 0.1 10^3/uL (0.0-0.5); EOS % 0.4 % (0.0-3.0); HEMATOCRIT 38.3 % (42.0-52.0); HEMOGLOBIN 14.1 g/dl (13.5-17.5); LYMPH % 7.7 % (24.0-44.0); MEAN CORPUSCULAR HEMOGLOBIN 32.8 pg (27.0-33.0); MEAN CORPUSCULAR VOLUME 89.1 fl (80.0-96.0); MONO # 1.4 10^3/uL (0.0-0.8); MONO % 11.4 % (2.0-8.0); NEUTROPHILS # 9.8 10^3/uL (1.5-8.5); NEUTROPHILS % 79.7 % (36.0-66.0); PLATELET COUNT, AUTOMATED 255 10^3/uL (150-450); WHITE BLOOD COUNT 12.3 10^3/uL (4.0-10.0)
[2022-09-26 08:03] LABS: MEAN CORPUSCULAR HGB CONC 36.8 g/dl (32.0-36.5)
[2022-09-26 08:30] VITALS: BP 134/86
[2022-09-26 08:36] LABS: ALBUMIN 2.6 G/DL (3.2-5.2); ALKALINE PHOSPHATASE > 2300 U/L (46-116); ALT/SGPT 561 U/L (7.0-40); AST/SGOT 468 U/L (<34); BLOOD UREA NITROGEN 11 MG/DL (9-23); CALCIUM LEVEL 9.5 MG/DL (8.5-10.1); CARBON DIOXIDE LEVEL 27 MMOL/L (20-31); CHLORIDE LEVEL 98 MMOL/L (98-107); CREATININE FOR GFR 0.58 MG/DL (0.70-1.30); GLOMERULAR FILTRATION RATE > 60.0 (>60); GLUCOSE, FASTING 109 MG/DL (60-100); POTASSIUM SERUM 3.9 MMOL/L (3.5-5.1); SODIUM LEVEL 131 MMOL/L (136-145); TOTAL PROTEIN 6.2 G/DL (5.7-8.2)
[2022-09-26 08:38] LABS: BILIRUBIN,TOTAL 35.3 MG/DL (0.3-1.2)
[2022-09-26] MEDS ORDERED: fentaNYL 75 MCG/HR PATCH TOP SCH (09:00)
[2022-09-26] MEDS ORDERED: HYDROMORPHONE HCL 0.5 MG/ 0.5 ML SYRINGE IV STA (10:38)
[2022-09-28] MEDS ORDERED: OXYC30TA PO (10:17)
[2022-09-28] MEDS ORDERED: DEXA4TA PO (10:17)
[2022-09-28] MEDS ORDERED: FENT100D25 TD (10:17)
[2022-09-28] MEDS ORDERED: GABA-282 PO (10:17)
[2022-09-29] MEDS ORDERED: FENTANYL REMOVAL DOCUMENTATION MISC XX SCH (09:00)
== END 2022-09-26 11:06 | disposition left against medical advice (07) | DRG 281 ==
LOC: M ED 03:36 → EDBD 03:36 → M ED INP 05:52 → ENRESERV 08:28 → M MSPAV 09:27
PROVIDERS: ADMIT Internal Medicine; ATTEND Internal Medicine
DX: C78.7 Secondary malignant neoplasm of liver and intrahepatic bile duct (principal); K83.1 Obstruction of bile duct; C79.51 Secondary malignant neoplasm of bone; C18.9 Malignant neoplasm of colon, unspecified; Z92.21 Personal history of antineoplastic chemotherapy; Z91.119 Patient's noncompliance with dietary regimen due to unspecified reason; Z79.899 Other long term (current) drug therapy

== ENCOUNTER 2022-09-26 23:36 | Inpatient (IN) | payer OTHER ==
[~2022-09-26] VITALS: Ht 175.3 cm; Wt 53.1 kg
[~2022-09-26 23:36] MED LIST changes: +ONDA-196 PO
[2022-09-27] MEDS ORDERED: HYDROMORPHONE HCL 0.5 MG/ 0.5 ML SYRINGE IV ONE
[2022-09-27 00:35] LABS: BASO % 0.3 % (0.0-1.0); EOS # 0.1 10^3/uL (0.0-0.5); EOS % 0.4 % (0.0-3.0); HEMOGLOBIN 13.4 g/dl (13.5-17.5); LYMPH % 9.1 % (24.0-44.0); MEAN CORPUSCULAR HEMOGLOBIN 32.7 pg (27.0-33.0); MEAN CORPUSCULAR HGB CONC 36.6 g/dl (32.0-36.5); MEAN CORPUSCULAR VOLUME 89.3 fl (80.0-96.0); MONO # 1.4 10^3/uL (0.0-0.8); MONO % 11.8 % (2.0-8.0); PLATELET COUNT, AUTOMATED 236 10^3/uL (150-450); WHITE BLOOD COUNT 11.5 10^3/uL (4.0-10.0)
[2022-09-27 00:44] LABS: HEMATOCRIT 36.6 % (42.0-52.0)
[2022-09-27 01:41] LABS: ALBUMIN 2.2 G/DL (3.2-5.2); ALKALINE PHOSPHATASE > 2300 U/L (46-116); ALT/SGPT 521 U/L (7.0-40); AST/SGOT 421 U/L (<34); BLOOD UREA NITROGEN 10 MG/DL (9-23); CALCIUM LEVEL 8.8 MG/DL (8.5-10.1); CARBON DIOXIDE LEVEL 28 MMOL/L (20-31); CHLORIDE LEVEL 101 MMOL/L (98-107); CREATININE FOR GFR 0.54 MG/DL (0.70-1.30); GLOMERULAR FILTRATION RATE > 60.0 (>60); GLUCOSE, FASTING 103 MG/DL (60-100); LIPASE 21 U/L (12-53); MAGNESIUM LEVEL 1.7 MG/DL (1.8-2.4); SODIUM LEVEL 133 MMOL/L (136-145); TOTAL PROTEIN 5.5 G/DL (5.7-8.2)
[2022-09-27 01:46] LABS: BILIRUBIN,TOTAL 32.4 MG/DL (0.3-1.2)
[2022-09-27] MEDS ORDERED: ONDANSETRON 4MG 2ML VIAL IV PRN (02:05)
[2022-09-27] MEDS ORDERED: HYDROMORPHONE HCL 0.5 MG/ 0.5 ML SYRINGE IV PRN (02:05)
[2022-09-27] MEDS ORDERED: MAG SULF 1GM/100ML (MAG RUN) 1 GM in IV 1 EA IV ONE (02:10)
[2022-09-27] MEDS ORDERED: LR 1,000 ML IV SCH (02:30)
[2022-09-27] MEDS: HYDROMORPHONE HCL 0.5 MG/ 0.5 ML SYRINGE IV PRN ×3 (02:45→09:09)
[2022-09-27] MEDS: POTASSIUM CHLORIDE 10MEQ SR TABLET PO SCH ×2 (02:46→09:09)
[2022-09-27] MEDS ORDERED: HOME MED LIST COMPLETE! XX SCH (03:25)
[2022-09-27 03:29] LABS: RSV AMPLIFICATION NEGATIVE (NEGATIVE)
[2022-09-27 03:50] VITALS: BP 136/88
[2022-09-27 05:21] VITALS: BP 124/82
[2022-09-27 06:15] LABS: HEMATOCRIT 35.5 % (42.0-52.0); MEAN CORPUSCULAR HEMOGLOBIN 32.6 pg (27.0-33.0); PLATELET COUNT, AUTOMATED 252 10^3/uL (150-450); RED BLOOD COUNT 3.99 10^6/uL (4.30-6.10); WHITE BLOOD COUNT 11.6 10^3/uL (4.0-10.0)
[2022-09-27 06:29] LABS: MEAN CORPUSCULAR HGB CONC 36.6 g/dl (32.0-36.5)
[2022-09-27 08:07] LABS: BLOOD UREA NITROGEN 9 MG/DL (9-23); CALCIUM LEVEL 7.9 MG/DL (8.5-10.1); CARBON DIOXIDE LEVEL 25 MMOL/L (20-31); CHLORIDE LEVEL 100 MMOL/L (98-107); CREATININE FOR GFR 0.53 MG/DL (0.70-1.30); GLOMERULAR FILTRATION RATE > 60.0 (>60); GLUCOSE, FASTING 119 MG/DL (60-100); MAGNESIUM LEVEL 1.9 MG/DL (1.8-2.4); SODIUM LEVEL 134 MMOL/L (136-145)
[2022-09-27] MEDS ORDERED: fentaNYL 75 MCG/HR PATCH TOP SCH (09:00)
[2022-09-27] MEDS ORDERED: FENTANYL REMOVAL DOCUMENTATION MISC XX SCH (09:00)
[2022-09-27] MEDS ORDERED: KCL 10MEQ/100ML SWI (KRUN) 10 MEQ in IV 1 EA IV SCH (10:00)
[2022-09-27] MEDS ORDERED: oxyCODONE 5MG TAB PO PRN (10:45)
[2022-09-27] MEDS ORDERED: PROHANCE 279.3MG/ML 5ML VIAL As Ordered ONE (12:06)
[2022-09-27] MEDS ORDERED: fentaNYL 75 MCG/HR PATCH TOP ONE (14:00)
[2022-09-28] MEDS ORDERED: DEXA4TA PO (10:17)
[2022-09-28] MEDS ORDERED: FENT100D25 TD (10:17)
[2022-09-28] MEDS ORDERED: OXYC30TA PO (10:17)
[2022-09-28] MEDS ORDERED: GABA-282 PO (10:17)
[2022-09-29] MEDS ORDERED: FENTANYL REMOVAL DOCUMENTATION MISC XX SCH (09:00)
[2022-09-29] MEDS ORDERED: fentaNYL 75 MCG/HR PATCH TOP SCH (09:00)
[2022-09-29] MEDS ORDERED: FENT100D25 TD (17:05)
== END 2022-09-27 14:55 | disposition left against medical advice (07) | DRG 861 ==
LOC: EDBD 23:36 → M ED 23:36 → M ED INP 09-27 02:04 → M MSPAV 09-27 03:49
PROVIDERS: ADMIT Family Medicine; ATTEND Internal Medicine
DX: G89.3 Neoplasm related pain (acute) (chronic) (principal); C78.7 Secondary malignant neoplasm of liver and intrahepatic bile duct; C78.00 Secondary malignant neoplasm of unspecified lung; K83.1 Obstruction of bile duct; C79.51 Secondary malignant neoplasm of bone; R17 Unspecified jaundice; E83.42 Hypomagnesemia; C18.9 Malignant neoplasm of colon, unspecified; E87.6 Hypokalemia; R74.01 Elevation of levels of liver transaminase levels; Z79.899 Other long term (current) drug therapy; Z92.21 Personal history of antineoplastic chemotherapy

== ENCOUNTER → 2022-09-28 | Outpatient (CLI) | payer OTHER ==
[~2022-09-28] VITALS: Ht 175.3 cm; Wt 50.4 kg
[~2022-09-28] MED LIST changes: +FENT100D25 TD
[2022-09-28 09:02] VITALS: BP 124/83
== END ==
LOC: M PAL 08:59
PROVIDERS: ATTEND Nurse Practitioner Adult Health
DX: C18.9 Malignant neoplasm of colon, unspecified (principal); Z51.5 Encounter for palliative care; Z92.21 Personal history of antineoplastic chemotherapy; Z92.3 Personal history of irradiation; G89.3 Neoplasm related pain (acute) (chronic); R17 Unspecified jaundice; R74.8 Abnormal levels of other serum enzymes; E80.7 Disorder of bilirubin metabolism, unspecified; F17.290 Nicotine dependence, other tobacco product, uncomplicated; R11.2 Nausea with vomiting, unspecified; R64 Cachexia; Z79.52 Long term (current) use of systemic steroids; Z87.891 Personal history of nicotine dependence; Z80.3 Family history of malignant neoplasm of breast; Z86.59 Personal history of other mental and behavioral disorders; Z66 Do not resuscitate

== ENCOUNTER 2022-10-16 13:44 | Day surgery (SDC) | payer OTHER ==
[~2022-10-16] VITALS: Ht 175.3 cm; Wt 52.3 kg
[~2022-10-16 13:44] MED LIST changes: +SENN-111 PO; -SENN18TA PO
[2022-10-16] MEDS ORDERED: LR 1,000 ML IV SCH ×2 (14:20→18:20)
[2022-10-16] MEDS ORDERED: ROCURONIUM BROMIDE 50MG/5ML VIAL As Ordered ONE (14:47)
[2022-10-16] MEDS ORDERED: ONDANSETRON 4MG 2ML VIAL As Ordered ONE (14:47)
[2022-10-16] MEDS ORDERED: LIDOCAINE 2% 100MG/5ML SDV (FOR ANES.) As Ordered ONE (14:47)
[2022-10-16] MEDS ORDERED: propofoL 200 MG/20 ML VIAL As Ordered ONE (14:47)
[2022-10-16] MEDS ORDERED: SUGAMMADEX SODIUM 500 MG/5 ML VIAL (BRIDION) As Ordered ONE (14:47)
[2022-10-16] MEDS ORDERED: ISOVUE-300 61% 100ML VIAL As Ordered ONE (15:16)
[2022-10-16] MEDS ORDERED: MIDAZOLAM INJ 2MG/2ML VIAL As Ordered ONE (16:07)
[2022-10-16] MEDS ORDERED: fentaNYL 100 MCG/2 ML INJECTION As Ordered ONE (16:07)
[2022-10-16] MEDS ORDERED: ePHEDrine SULFATE 25 MG/5 ML(5MG/ML) SYRINGE As Ordered ONE (17:08)
[2022-10-16] MEDS ORDERED: ALBUTEROL 6.7GM INHALER **FOR ANES. CART/OMNICELL ONLY As Ordered ONE (17:23)
[2022-10-16] MEDS ORDERED: SEVOFLURANE INHAL SOLN 250 ML BTL As Ordered ONE (17:26)
[2022-10-16] MEDS ORDERED: ONDANSETRON 4MG 2ML VIAL IV PRN (18:20)
[2022-10-16] MEDS ORDERED: HYDROMORPHONE HCL 0.5 MG/ 0.5 ML SYRINGE IV PRN (18:20)
[2022-10-16] MEDS ORDERED: fentaNYL 100 MCG/2 ML INJECTION IV PRN (18:20)
[2022-10-16] MEDS ORDERED: oxyCODONE 5MG TAB PO PRN (18:20)
[2022-10-16 19:10] VITALS: BP 104/62; TEMP 98.9; O2SAT 98
[2022-10-24] MEDS ORDERED: DRON10CA7 PO (10:02)
[2022-10-24] MEDS ORDERED: DEXA4TA PO (10:32)
[2022-10-24] MEDS ORDERED: OXYC30TA PO (10:32)
== END 2022-10-16 19:43 | disposition home or self-care (01) ==
LOC: M SDC 13:44
PROVIDERS: ATTEND Internal Medicine Gastroenterology
DX: K83.1 Obstruction of bile duct (principal); R74.8 Abnormal levels of other serum enzymes; R17 Unspecified jaundice; F12.10 Cannabis abuse, uncomplicated; Z92.21 Personal history of antineoplastic chemotherapy; F32.A Depression, unspecified; Z85.09 Personal history of malignant neoplasm of other digestive organs; Z79.899 Other long term (current) drug therapy; Z85.118 Personal history of other malignant neoplasm of bronchus and lung
CPT/HCPCS: 43274; 76000; C1769; C1889; C2625; J1100; J2250; J2405; J3010; Q9967

== ENCOUNTER → 2022-10-24 | Outpatient (CLI) | payer OTHER ==
[~2022-10-24] VITALS: Ht 165.1 cm; Wt 54.6 kg
[~2022-10-24] MED LIST changes: +DRON10CA7 PO
[2022-10-24 09:48] VITALS: BP 112/63; O2SAT 100
== END ==
LOC: M PAL 09:31
PROVIDERS: ATTEND Nurse Practitioner Adult Health
DX: C18.9 Malignant neoplasm of colon, unspecified (principal); G89.3 Neoplasm related pain (acute) (chronic); Z51.5 Encounter for palliative care; Z79.52 Long term (current) use of systemic steroids; Z79.891 Long term (current) use of opiate analgesic; R17 Unspecified jaundice; R74.01 Elevation of levels of liver transaminase levels; Z96.89 Presence of other specified functional implants; R60.9 Edema, unspecified; R53.83 Other fatigue; R63.0 Anorexia; Z66 Do not resuscitate; Z80.3 Family history of malignant neoplasm of breast; F17.290 Nicotine dependence, other tobacco product, uncomplicated; Z92.21 Personal history of antineoplastic chemotherapy

== ENCOUNTER → 2022-12-14 | Outpatient (CLI) | payer OTHER ==
[~2022-12-14] VITALS: Ht 175.3 cm; Wt 54.8 kg
[~2022-12-14] MED LIST changes: +FAMO40TA3 PO; +FURO20TA2 PO
[2022-12-14 13:14] VITALS: BP 99/61; TEMP 97.1; O2SAT 100
== END ==
LOC: M PAL 13:07
PROVIDERS: ATTEND Nurse Practitioner Adult Health
DX: G89.3 Neoplasm related pain (acute) (chronic) (principal); Z79.891 Long term (current) use of opiate analgesic; Z79.52 Long term (current) use of systemic steroids; C18.9 Malignant neoplasm of colon, unspecified; R62.7 Adult failure to thrive; R17 Unspecified jaundice; F17.298 Nicotine dependence, other tobacco product, with other nicotine-induced disorders; R60.0 Localized edema; Z86.718 Personal history of other venous thrombosis and embolism; Z66 Do not resuscitate; Z80.3 Family history of malignant neoplasm of breast

== ENCOUNTER → 2023-01-09 | Outpatient (CLI) | payer OTHER ==
[~2023-01-09] VITALS: Ht 175.3 cm; Wt 55.5 kg
[~2023-01-09] MED LIST changes: +LORA2CON5 PO; +OXYC100C5 SL
[2023-01-09 13:05] VITALS: BP 118/71; TEMP 98; O2SAT 100
== END ==
LOC: M PAL 12:57
PROVIDERS: ATTEND Nurse Practitioner Adult Health
DX: C18.9 Malignant neoplasm of colon, unspecified (principal); Z51.5 Encounter for palliative care; G89.3 Neoplasm related pain (acute) (chronic); R17 Unspecified jaundice; R60.0 Localized edema; R62.7 Adult failure to thrive; R64 Cachexia; Z86.718 Personal history of other venous thrombosis and embolism; Z92.21 Personal history of antineoplastic chemotherapy; Z92.3 Personal history of irradiation; F17.290 Nicotine dependence, other tobacco product, uncomplicated; Z66 Do not resuscitate; Z79.52 Long term (current) use of systemic steroids; Z79.891 Long term (current) use of opiate analgesic; Z79.899 Other long term (current) drug therapy; Z80.3 Family history of malignant neoplasm of breast

== ENCOUNTER 2023-01-24 11:23 | Inpatient (IN) | payer OTHER ==
[~2023-01-24] VITALS: Ht 180.3 cm; Wt 54.4 kg
[2023-01-24 11:42] VITALS: BP 118/74; TEMP 97.7; O2SAT 97
[2023-01-24 11:52] LABS: HEMATOCRIT 37.2 % (42.0-52.0); MEAN CORPUSCULAR HEMOGLOBIN 33.5 pg (27.0-33.0); MEAN CORPUSCULAR HGB CONC 34.9 g/dl (32.0-36.5); MEAN CORPUSCULAR VOLUME 95.9 fl (80.0-96.0); PLATELET COUNT, AUTOMATED 103 10^3/uL (150-450); RED BLOOD COUNT 3.88 10^6/uL (4.30-6.10); WHITE BLOOD COUNT 15.2 10^3/uL (4.0-10.0)
[2023-01-24 12:34] LABS: ANISOCYTOSIS 3+; MONOCYTES 1 % (0-5); NEUTROPHILS 94 % (28-66); PLATELET ESTIMATE DECREASED (NORMAL)
[2023-01-24 12:42] LABS: ALBUMIN 1.8 G/DL (3.2-5.2); ALKALINE PHOSPHATASE 2203 U/L (46-116); ALT/SGPT 303 U/L (7.0-40); AST/SGOT 382 U/L (<34); BLOOD UREA NITROGEN 32 MG/DL (9-23); CALCIUM LEVEL 8.4 MG/DL (8.5-10.1); CARBON DIOXIDE LEVEL 36 MMOL/L (20-31); CHLORIDE LEVEL 88 MMOL/L (98-107); CREATININE FOR GFR 0.82 MG/DL (0.70-1.30); GLOMERULAR FILTRATION RATE > 60.0 (>60); GLUCOSE, FASTING 82 MG/DL (60-100); POTASSIUM SERUM 4.2 MMOL/L (3.5-5.1); SODIUM LEVEL 133 MMOL/L (136-145); TOTAL PROTEIN 4.9 G/DL (5.7-8.2)
[2023-01-24 12:44] LABS: BILIRUBIN,TOTAL 31.6 MG/DL (0.3-1.2)
[2023-01-24] MEDS ORDERED: MED REC IN PROGRESS XX SCH (13:10)
[2023-01-24] MEDS ORDERED: SCOPOLAMINE 1MG TRANSDERMAL PATCH TOP PRN (13:30)
[2023-01-24] MEDS ORDERED: ATROPINE SULFATE 1% OPHTH SOLN 2ML BTL SL PRN (13:30)
[2023-01-24] MEDS ORDERED: ONDANSETRON 4MG 2ML VIAL IV PRN (13:30)
[2023-01-24] MEDS: MORPHINE 2 MG/ML 1ML VIAL IV PRN ×2 (14:28→18:51)
[2023-01-24] MEDS: LORazepam 2 MG/ML 1ML VIAL IV PRN ×2 (14:32→18:51)
[2023-01-25] MEDS: MORPHINE 2 MG/ML 1ML VIAL IV PRN ×4 (03:20→23:52)
[2023-01-25] MEDS ORDERED: MED REC CURRENTLY UNOBTAINABLE XX SCH (12:45)
[2023-01-25] MEDS ORDERED: MED REC COMMENT (12:49)
[2023-01-25] MEDS ORDERED: FENTANYL REMOVAL DOCUMENTATION MISC XX SCH (15:00)
[2023-01-25] MEDS ORDERED: fentaNYL 100 MCG/HR PATCH TOP SCH (15:00)
[2023-01-26] MEDS: MORPHINE 2 MG/ML 1ML VIAL IV PRN (15:37)
[2023-01-26] MEDS: MORPHINE 10MG/0.5ML ORAL CONCENTRATE SOLUTION U/D SL PRN (18:03)
[2023-01-27] MEDS: MORPHINE 10MG/0.5ML ORAL CONCENTRATE SOLUTION U/D SL PRN (01:06)
== END 2023-01-27 09:25 | disposition expired | DRG 862 ==
LOC: M ED 11:23 → EDBD 11:23 → M ED INP 13:29 → M MS4PR 20:15 → M MSPAV 01-26 16:01
PROVIDERS: ADMIT General Practice; ATTEND General Practice
DX: Z51.5 Encounter for palliative care (principal); R57.1 Hypovolemic shock; E43 Unspecified severe protein-calorie malnutrition; G93.41 Metabolic encephalopathy; E87.3 Alkalosis; K83.1 Obstruction of bile duct; C79.9 Secondary malignant neoplasm of unspecified site; K76.82 Hepatic encephalopathy; E87.1 Hypo-osmolality and hyponatremia; I82.501 Chronic embolism and thrombosis of unspecified deep veins of right lower extremity; J43.9 Emphysema, unspecified; K80.32 Calculus of bile duct with acute cholangitis without obstruction; C19 Malignant neoplasm of rectosigmoid junction; K74.69 Other cirrhosis of liver; F17.210 Nicotine dependence, cigarettes, uncomplicated; J21.9 Acute bronchiolitis, unspecified; M54.50 Low back pain, unspecified; R26.2 Difficulty in walking, not elsewhere classified; R53.1 Weakness; R60.0 Localized edema; R62.7 Adult failure to thrive; Z66 Do not resuscitate; Z68.1 Body mass index [BMI] 19.9 or less, adult; Z92.3 Personal history of irradiation; Z79.899 Other long term (current) drug therapy